=== PATIENT | male | born 1965 | race Caucasian/White ===

== ENCOUNTER 2018-12-14 23:01 | Inpatient (IN) | payer OTHER ==
[2018-12-14] MEDS ORDERED: SODIUM CHLORIDE 0.9% 1,000 ML IV ONE (23:54)
--- NOTE | 2018-12-14 23:54 | ED ---
Weakness HPI - General Chief complaint: Recheck/Abnormal Lab/Rx Stated complaint: SOB Time Seen by Provider: 12/14/18 23:19 Source: patient, EMS, RN notes reviewed, old records reviewed Mode of arrival: EMS Limitations: no limitations - History of Present Illness Initial comments: This is a 53-year-old male the ER for evaluation is patient presents today for evaluation of weakness weakness abdominal pain shortness of breath. Exertional dyspnea. Patient is accepted in transfer for evaluation regards to exertional dyspnea. Patient was found to have episodes of lymphoma likely lymphoma. Patient himself has no specific complaints currently. MD Complaint: generalized weakness -: month(s) Location: generalized Severity: moderate Severity scale (1-10): 5 Quality: constant Consistency: intermittent Improves with: none Worsens with: movement Context: new medication Associated Symptoms: loss of appetite, nausea/vomiting, shortness of breath - Related Data Allergies Allergy/AdvReac Type Severity Reaction Status Date / Time No Known Allergies Allergy Verified 12/14/18 23:12 Review of Systems ROS Statement: Those systems with pertinent positive or pertinent negative responses have been documented in the HPI. ROS Other: All systems not noted in ROS Statement are negative. Past Medical History Past Medical History: Asthma, Hyperlipidemia, Hypertension History of Any Multi-Drug Resistant Organisms: None Reported Past Surgical History: No Surgical Hx Reported Past Psychological History: Bipolar, Depression Smoking Status: Current some day smoker Past Alcohol Use History: None Reported Past Drug Use History: None Reported General Exam Limitations: no limitations General appearance: alert, in no apparent distress Head exam: Present: atraumatic, normocephalic, normal inspection Eye exam: Present: normal appearance, PERRL, EOMI. Absent: scleral icterus, conjunctival injection, periorbital swelling ENT exam: Present: normal exam, mucous membranes moist Neck exam: Present: normal inspection. Absent: tenderness, meningismus, lymphadenopathy Respiratory exam: Present: normal lung sounds bilaterally. Absent: respiratory distress, wheezes, rales, rhonchi, stridor Cardiovascular Exam: Present: regular rate, normal rhythm, normal heart sounds. Absent: systolic murmur, diastolic murmur, rubs, gallop, clicks GI/Abdominal exam: Present: soft, normal bowel sounds. Absent: distended, tenderness, guarding, rebound, rigid Extremities exam: Present: normal inspection, full ROM, normal capillary refill. Absent: tenderness, pedal edema, joint swelling, calf tenderness Back exam: Present: normal inspection Neurological exam: Present: alert, oriented X3, CN II-XII intact Psychiatric exam: Present: normal affect, normal mood Skin exam: Present: warm, dry, intact, normal color. Absent: rash Course Vital Signs 12/14/18 23:08 Temperature 98.1 F Pulse Rate 110 H Respiratory 18 Rate Blood Pressure 144/82 O2 Sat by Pulse 96 Oximetry - Reevaluation(s) Reevaluation #1: 12/14/18 23:52 Transferring paperwork is reviewed including labwork and CAT scan Reevaluation #2: 12/14/18 23:53 patient is in no distress Medical Decision Making - Medical Decision Making 53 male the ER for evaluation. Patient is new diagnosis of CVA. Likely will follow-up. Patient is in no acute distress with no complaints. He recently presented for evaluation of exertional dyspnea and there is some concern for u nderlying urologic obstruction. Disposition Clinical Impression: Lymphoma Disposition: ADMITTED IP TO THIS HOSP Condition: Fair Is patient prescribed a controlled substance at d/c from ED?: No Referrals: None,Stated [Primary Care Provider] - 1-2 days
[2018-12-14] MEDS ORDERED: MORPHINE SULFATE 4 MG/ML SYRINGE IVP STA (23:55)
[2018-12-14] MEDS ORDERED: MORPHINE SULFATE 4 MG/ML SYRINGE IVP PRN (23:55)
[2018-12-14] MEDS ORDERED: IPRATROPIUM-ALBUTEROL 3 ML NEB INHALATION STA (23:55)
[2018-12-14] MEDS ORDERED: IPRATROPIUM-ALBUTEROL 3 ML NEB INHALATION PRN (23:55)
[2018-12-15] MEDS ORDERED: BARIUM SULFATE 450 ML ORAL.SUSP BOTTLE PO PRN (08:50)
--- NOTE | 2018-12-15 09:04 | HP ---
HISTORY AND PHYSICAL CHIEF COMPLAINT: This is a 53-year-old who presents with weakness, abdominal pain and shortness of breath for the past 3 months. He has lost 62 pounds in the last 3 months. He came transferred from [facility] due to possible workup for possible lymphoma, although he states he does not know that he has no lymphoma. He is on medicines for his bipolar he states. Otherwise, he is on no other medicines and he was not short of breath until 3 months ago. ALLERGIES: Allergies are negative. REVIEW OF SYSTEMS: Fourteen-point review of systems negative except for the weight loss and shortness of breath. No hemoptysis. No PND or orthopnea. PAST MEDICAL HISTORY: Asthma, hypertension, dyslipidemia and past medical history of bipolar, depression. Current every day smoker. PHYSICAL EXAMINATION: Vital signs are reviewed. ENDOCRINE: BMI is over 40. External ear canals within normal limits. Pupils equal, round, reactive to light and accommodation. HEART: S1, S2. GI: Normal bowel sounds. EXTREMITIES: Normal inspection. Full range of motion. BACK: Normal inspection. NEUROLOGICAL: Cranial nerves are intact. PSYCH: Fair mood and affect. LUNGS: decreased breath sounds. No evidence of significant wheezing. Blood pressure 144/82, temp 98.1, pulse 110, respiratory rate 16 to 18, O2 of 96% on room air. ASSESSMENT: 1. Acute dyspnea of unclear etiology. 2. History of asthma. 3. History of bipolar. Continue updraft treatments. Await for Pulmonary to evaluate him. Continue with bipolar medicines. Please see further orders. MMODL / IJN: [id number] /
[2018-12-15] MEDS: busPIRone HCl 5 MG TAB PO SCH ×2 (09:48→21:28)
[2018-12-15] MEDS: ENOXAPARIN 40 MG/0.4 ML SYRINGE SQ SCH (09:49)
[2018-12-15] MEDS: Atomoxetine Hcl [Strattera] 80 MG PO SCH (09:49)
[2018-12-15] MEDS: SERTRALINE 100 MG TAB PO SCH (09:50)
[2018-12-15] MEDS: QUEtiapine 25 MG TAB PO SCH ×2 (09:50→21:28)
[2018-12-15 10:17] VITALS: BMI 36.6
[2018-12-15 10:42] LABS: Anisocytosis Slight; Basophils % (A) 1 %; Eosinophils % (A) 1 %; HGB 11.2 gm/dL (13.0-17.5); Hypochromasia Slight; Lymphocytes # (A) 0.8 k/uL (1.0-4.8); Lymphocytes % (A) 16 %; MCH 26.6 pg (25.0-35.0); MCHC 32.2 g/dL (31.0-37.0); MCV 82.7 fL (80.0-100.0); Mean Platelet Volume 6.9; Monocytes # (A) 0.3 k/uL (0-1.0); Monocytes % (A) 5 %; Neutrophils # (A) 4.1 k/uL (1.3-7.7); Neutrophils % (A) 76 %; Platelet Count 216 k/uL (150-450); RBC 4.23 m/uL (4.30-5.90); RDW 17.8 % (11.5-15.5); WBC 5.3 k/uL (3.8-10.6)
[2018-12-15] MEDS ORDERED: MORPHINE ORAL SOLN 10 MG/5 ML CUP PO PRN (10:54)
[2018-12-15 11:01] LABS: Albumin 3.3 g/dL (3.5-5.0); Calcium 9.1 mg/dL (8.4-10.2); Potassium 4.3 mmol/L (3.5-5.1); Total Bilirubin 0.6 mg/dL (0.2-1.3); Total Protein 5.6 g/dL (6.3-8.2)
[2018-12-15 12:00] LABS: Magnesium 2.2 mg/dL (1.6-2.3); Phosphorus 4.7 mg/dL (2.5-4.5)
[2018-12-15 12:11] LABS: Partial Thromboplastin Time 28.1 sec (22.0-30.0); Prothrombin Time 10.7 sec (9.0-12.0); Reticulocyte % 3.4 % (0.5-2.0)
--- NOTE | 2018-12-15 12:34 | P.CONS ---
History of Present Illness - Reason for Consult Consult date: 12/15/18 Adenopathy Requesting physician: Coy Eaton - Chief Complaint Weight Loss and Shortness of Breath - History of Present Illness Mr. Lamb is a 53 year old male patient who was transfered to [facility] for Oncology and Nephrology referrals. He originally presented to [facility] with complaint of persistent fatigue and increased shortness of breath on exertion. He admits to large unintended weight loss of over 30lbs in past few months. He had imaging at [facility] was concern for obstructive uropathy and diffuse adenopathy therefore was transferred to [facility] and medical Oncology was consulted. Creatinine on admission 1.39, BUN = 20. Hemoglobin 11.2. He has known history of active tobacco abuse, COPD, Hypertension, Hyperlipidemia. Review of Systems A 14 point review of systems assessed and completed and all negative except HPI Past Medical History Past Medical History: Asthma, Hyperlipidemia, Hypertension Additional Past Medical History / Comment(s): Per patient he was diagnosed with bipolar disorder, History of Any Multi-Drug Resistant Organisms: None Reported Past Surgical History: No Surgical Hx Reported Additional Past Surgical History / Comment(s): Colonoscopy Past Anesthesia/Blood Transfusion Reactions: No Reported Reaction Past Psychological History: Bipolar, Depression Additional Psychological History / Comment(s): Manic Smoking Status: Current every day smoker Past Alcohol Use History: None Reported Past Drug Use History: None Reported - Past Family History Father Family Medical History: No Reported History Mother Family Medical History: No Reported History Medications and Allergies Home Medications Medication Instructions Recorded Confirmed Type Atomoxetine HCl [Strattera] 80 mg PO DAILY 12/15/18 12/15/18 History QUEtiapine XR [SEROquel XR] 150 mg PO QAM 12/15/18 12/15/18 History QUEtiapine [SEROquel] 200 mg PO HS 12/15/18 12/15/18 History Sertraline [Zoloft] 200 mg PO DAILY 12/15/18 12/15/18 History busPIRone HCL 15 mg PO BID 12/15/18 12/15/18 History Allergies Allergy/AdvReac Type Severity Reaction Status Date / Time ragweed pollen Allergy Unknown Verified 12/15/18 07:58 Physical Exam Vitals: Vital Signs Temp Pulse Pulse Resp BP BP Pulse Ox 12/15/18 05:17 97.8 F 96 16 119/68 94 L 12/15/18 01:45 98.2 F 107 H 16 126/67 93 L 12/15/18 01:06 98.0 F 109 H 18 144/80 98 12/15/18 00:19 20 12/15/18 00:18 108 H 12/15/18 00:10 107 H 12/14/18 23:08 98.1 F 110 H 18 144/82 96 Intake and Output 12/14/18 12/15/18 12/15/18 22:59 06:59 14:59 Intake Total 1580 Balance 1580 Intake: Intake, IV Titration 500 Amount Sodium Chloride 0.9% 1, 500 000 ml @ 100 mls/hr IV . Q10H ONE Rx#:[id number] Oral 1080 Other: Voiding Method Toilet Toilet # Voids 3 Weight 122.47 kg 122.47 kg Gen: No Acute Distress Head NC, NT Neck: There is some right supraclavicular lymph nodes on palpation 1-2cm, non tender Lungs: No increased respiratory effort noted. Bibasilar decreased airflow Heart RRR, S1s2 Abdomen: S/ND/NT Ext: No edema Neuro: No sensory or motor deficits. Results CBC & Chem 7: 12/15/18 10:30 12/15/18 10:30 Labs: Abnormal Lab Results - Last 24 Hours (Table) 12/15/18 12/15/18 12/15/18 Range/Units 10:30 10:30 10:30 RBC 4.23 L (4.30-5.90) m/uL Hgb 11.2 L (13.0-17.5) gm/dL Hct 35.0 L (39.0-53.0) % RDW 17.8 H (11.5-15.5) % Lymphocytes # 0.8 L (1.0-4.8) k/uL D-Dimer 1.58 H (<0.60) mg/L FEU Sodium 135 L (137-145) mmol/L Creatinine 1.39 H (0.66-1.25) mg/dL Glucose 104 H (74-99) mg/dL Total Protein 5.6 L (6.3-8.2) g/dL Albumin 3.3 L (3.5-5.0) g/dL Assessment and Plan Plan: Assessment and Recommendations: 1. Diffuse Adenopathy on imaging and palpable Supraclavicular lymphadenopathy - Profound Weight Loss over past 3 months - Positive Night sweats - Positive persistent Fatigue - Consult placed for surgical evaluation for excisional lymph node biopy of supraclavicular node, as we are concerned for a diagnosis of lymphoma, in order to obtain a definitive diagnosis excisional lymph node will allow for diagnosis as core or needle is difficult to obtain with hetergenousity of lymph tissue. 2. Mild Normocytic Anemia: 3. Increased Renal Function Physician Attest: I have completed the full history and physical of this patient and devloped the completed impression and plan, agree with above dictation, dictated as a scribe
--- NOTE | 2018-12-15 12:42 | P.CNPUL ---
History of Present Illness Consult date: 12/15/18 Reason for consult: dyspnea, cough, COPD Chief complaint: Shortness of breath History of present illness: This is a 53-year-old gentleman who presented to the hospital from an outside facility. The patient states he was having weakness, abdominal pain, shortness of breath that has been ongoing for at least 3 months. He states he has lost about 60 pounds in the last 3 months. He he states he does have a history of COPD and was diagnosed a few years ago. He does not use any inhalers or nebulizers at home. He does smoke one to 3 cigarettes per day at this time. He previously smoked 1 pack per day for 20 years. The patient was found to have an elevated d-dimer. He states he was hospitalized in the past at [facility] for shortness of breath. That when he was diagnosed with COPD. The patient states "I think so" when he is asked if he has obstructive sleep apnea. He states that he had a sleep study 10-15 years ago and was told it was negative. He did gain significant weight since that time. However again in the last 3 months he has lost 60 pounds. He does not use home oxygen. He states he used to work in a [employer]. He also used to work at [employer]. He has no history of pulmonary embolism or DVT. He does have one dog in the home. He states he does have environmental ALLERGIES to pollen. He states he does cough some and produces white phlegm. He denies fevers and chills. He did note wheezing at home. The patient did have a computed tomography scan done at an outside facility which showed concern for lymphoma. Review of Systems All systems: negative Past Medical History Past Medical History: Asthma, Hyperlipidemia, Hypertension Additional Past Medical History / Comment(s): Per patient he was diagnosed with bipolar disorder, History of Any Multi-Drug Resistant Organisms: None Reported Past Surgical History: No Surgical Hx Reported Additional Past Surgical History / Comment(s): Colonoscopy Past Anesthesia/Blood Transfusion Reactions: No Reported Reaction Past Psychological History: Bipolar, Depression Additional Psychological History / Comment(s): Manic Smoking Status: Current every day smoker Past Alcohol Use History: None Reported Past Drug Use History: None Reported - Past Family History Father Family Medical History: No Reported History Mother Family Medical History: No Reported History Medications and Allergies Home Medications Medication Instructions Recorded Confirmed Type Atomoxetine HCl [Strattera] 80 mg PO DAILY 12/15/18 12/15/18 History QUEtiapine XR [SEROquel XR] 150 mg PO QAM 12/15/18 12/15/18 History QUEtiapine [SEROquel] 200 mg PO HS 12/15/18 12/15/18 History Sertraline [Zoloft] 200 mg PO DAILY 12/15/18 12/15/18 History busPIRone HCL 15 mg PO BID 12/15/18 12/15/18 History Allergies Allergy/AdvReac Type Severity Reaction Status Date / Time ragweed pollen Allergy Unknown Verified 12/15/18 07:58 Physical Exam Osteopathic Statement: *. No significant issues noted on an osteopathic structural exam other than those noted in the History and Physical/Consult. Vitals: Vital Signs Temp Pulse Pulse Resp BP BP Pulse Ox 12/15/18 05:17 97.8 F 96 16 119/68 94 L 12/15/18 01:45 98.2 F 107 H 16 126/67 93 L 12/15/18 01:06 98.0 F 109 H 18 144/80 98 12/15/18 00:19 20 12/15/18 00:18 108 H 12/15/18 00:10 107 H 12/14/18 23:08 98.1 F 110 H 18 144/82 96 Intake and Output 12/14/18 12/15/18 12/15/18 22:59 06:59 14:59 Intake Total 1580 Balance 1580 Intake: Intake, IV Titration 500 Amount Sodium Chloride 0.9% 1, 500 000 ml @ 100 mls/hr IV . Q10H ONE Rx#:[id number] Oral 1080 Other: Voiding Method Toilet Toilet # Voids 3 Weight 122.47 kg 122.47 kg Gen.: Patient is alert and oriented 3, no acute distress, morbidly obese Cardiovascular: Regular rate and rhythm, S1/S2 Lungs: Diminished breath sounds bilaterally no wheezes rales or rhonchi Abdomen: Soft nontender nondistended positive bowel sounds Extremities: No edema Results - Laboratory Findings CBC and BMP: 12/15/18 10:30 12/15/18 10:30 PT/INR, D-dimer PT 10.7 sec (9.0-12.0) 12/15/18 10:30 INR 1.0 (<1.2) 12/15/18 10:30 D-Dimer 1.58 mg/L FEU (<0.60) H 12/15/18 10:30 Abnormal lab findings: Abnormal Labs 12/15/18 12/15/18 12/15/18 10:30 10:30 10:30 RBC 4.23 L Hgb 11.2 L Hct 35.0 L RDW 17.8 H Lymphocytes # 0.8 L Retic Count D-Dimer 1.58 H Sodium 135 L Creatinine 1.39 H Glucose 104 H Phosphorus Total Protein 5.6 L Albumin 3.3 L 12/15/18 12/15/18 10:30 10:30 RBC Hgb Hct RDW Lymphocytes # Retic Count 3.4 H D-Dimer Sodium Creatinine Glucose Phosphorus 4.7 H Total Protein Albumin - Diagnostic Findings Chest x-ray: report reviewed CT scan - chest: report reviewed Assessment and Plan Assessment: Dyspnea on exertion Acute exacerbation of COPD Hydronephrosis Multiple enlarged lymphnodes noted on OSH CT scan concerning for lymphoma Active tobacco abuse Environmental allergies Morbid obesity, concern for ADRYAN Hypertension Dyslipidemia Bipolar/depression O2 to maintain saturation > or = 90%, currently on room air Awaiting CT/CXR to be uploaded for review Oncology evaluation and plan for possible biopsy Outpatient PSG and PFT Smoking cessation is highly recommended Pulmicort and Duonebs Monitor labs GI and DVT prophylaxis: Lovenox and add Protonix IS and pulmonary hygiene Check IgE/HP/allergy panel, A1AT Thank you for this consultation. We will continue to follow along.
[2018-12-15] MEDS: IPRATROPIUM-ALBUTEROL 3 ML NEB INHALATION SCH ×2 (12:59→20:43)
--- NOTE | 2018-12-15 14:28 | P.GSCN ---
<Pennie Jade - Last Filed: 12/15/18 14:23> History of Present Illness Consult date: 12/15/18 Reason for Consult: Lymph node biopsy Requesting physician: Radha Ivan History of present illness: CHIEF COMPLAINT: Supraclavicular lymph node biopsy HISTORY OF PRESENT ILLNESS: 53-year-old male who was transferred from [facility] with a chief complaint of generalized fatigue and increased shortness of breath. General surgery was consulted due to enlarged right supraclavicular lymph node and need for biopsy. PAST MEDICAL HISTORY: See list. PAST SURGICAL HISTORY: See list. MEDICATIONS: See list. ALLERGIES: See list. SOCIAL HISTORY: No illicit drug use. REVIEW OF SYSTEMS: CONSTITUTIONAL: Denies fever or chills. Reports night sweats. Reports fatigue. Reports weight loss. HEENT: Denies blurred vision, vision changes, or eye pain. Denies hemoptysis ENDOCRINE: Denies heat or cold intolerance. CARDIOVASCULAR: Denies chest pain or pressure. RESPIRATORY: reports occasional shortness of breath. GASTROINTESTINAL: Denies abdominal pain. Denies nausea or vomiting. NEURO: Denies history of seizures. PSYCH: No depression or suicidal ideation HEMATOLOGIC: Denies bleeding disorders. LYMPHATIC: The patient denies any lumps and bumps around the neck. GENITOURINARY: Denies any blood in urine or increased urinary frequency. MUSCULOSKELETAL: Denies myalgias. Denies joint swelling. Denies decreased range of motion beyond patients baseline. SKIN: Denies pruitis. Denies rash. PHYSICAL EXAM: VITAL SIGNS: Currently stable. GENERAL: Well-developed in no acute distress. HEENT: No sclera icterus. Extraocular movements grossly intact. Moist buccal mucosa. Head is atraumatic, normocephalic. Hears conversational speech. No nasal drainage. NECK: Palpable right medial supraclavicular lymph node. Nontender. CHEST: Non-labored respirations and equal bilateral excursions. CARDIOVASCULAR: Regular rate with regular rhythm. Palpable 2+ radial pulses. ABDOMEN: Obese. Soft. Nondistended. Nontender. MUSCULOSKELETAL: No clubbing, cyanosis or edema. NEUROLOGIC: No focal or lateralizing signs. Cranial nerves II through XII grossly intact. PSYCH: Appropriate affect. Alert and oriented to person, place and time. SKIN: Well perfused. Good skin turgor. ASSESSMENT: 1. Diffuse adenopathy per CT scan 2. Supraclavicular lymphadenopathy PLAN: 1. NPO after midnight 2. Patient to undergo right supraclavicular lymph node biopsy tomorrow with Dr. Fraire Nurse practitioner note has been reviewed by physician. Signing provider agrees with the documented findings, assessment, and plan of care. Past Medical History Past Medical History: Asthma, Hyperlipidemia, Hypertension Additional Past Medical History / Comment(s): Per patient he was diagnosed with bipolar disorder, History of Any Multi-Drug Resistant Organisms: None Reported Past Surgical History: No Surgical Hx Reported Additional Past Surgical History / Comment(s): Colonoscopy Past Anesthesia/Blood Transfusion Reactions: No Reported Reaction Past Psychological History: Bipolar, Depression Additional Psychological History / Comment(s): Manic Smoking Status: Current every day smoker Past Alcohol Use History: None Reported Past Drug Use History: None Reported - Past Family History Father Family Medical History: No Reported History Mother Family Medical History: No Reported History Medications and Allergies Home Medications Medication Instructions Recorded Confirmed Type Atomoxetine HCl [Strattera] 80 mg PO DAILY 12/15/18 12/15/18 History QUEtiapine XR [SEROquel XR] 150 mg PO QAM 12/15/18 12/15/18 History QUEtiapine [SEROquel] 200 mg PO HS 12/15/18 12/15/18 History Sertraline [Zoloft] 200 mg PO DAILY 12/15/18 12/15/18 History busPIRone HCL 15 mg PO BID 12/15/18 12/15/18 History Allergies Allergy/AdvReac Type Severity Reaction Status Date / Time ragweed pollen Allergy Unknown Verified 12/16/18 14:13 Surgical - Exam Vital Signs Temp Pulse Resp BP Pulse Ox 98.1 F 110 H 18 144/82 96 12/14/18 23:08 12/14/18 23:08 12/14/18 23:08 12/14/18 23:08 12/14/18 23:08 Results - Labs 12/15/18 10:30 12/15/18 10:30 Abnormal Lab Results - Last 24 Hours (Table) 12/15/18 12/15/18 12/15/18 Range/Units 10:30 10:30 10:30 RBC 4.23 L (4.30-5.90) m/uL Hgb 11.2 L (13.0-17.5) gm/dL Hct 35.0 L (39.0-53.0) % RDW 17.8 H (11.5-15.5) % Lymphocytes # 0.8 L (1.0-4.8) k/uL Retic Count (0.5-2.0) % D-Dimer 1.58 H (<0.60) mg/L FEU Sodium 135 L (137-145) mmol/L Creatinine 1.39 H (0.66-1.25) mg/dL Glucose 104 H (74-99) mg/dL Phosphorus (2.5-4.5) mg/dL Total Protein 5.6 L (6.3-8.2) g/dL Albumin 3.3 L (3.5-5.0) g/dL 12/15/18 12/15/18 Range/Units 10:30 10:30 RBC (4.30-5.90) m/uL Hgb (13.0-17.5) gm/dL Hct (39.0-53.0) % RDW (11.5-15.5) % Lymphocytes # (1.0-4.8) k/uL Retic Count 3.4 H (0.5-2.0) % D-Dimer (<0.60) mg/L FEU Sodium (137-145) mmol/L Creatinine (0.66-1.25) mg/dL Glucose (74-99) mg/dL Phosphorus 4.7 H (2.5-4.5) mg/dL Total Protein (6.3-8.2) g/dL Albumin (3.5-5.0) g/dL Diabetes panel 12/15/18 Range/Units 10:30 Sodium 135 L (137-145) mmol/L Potassium 4.3 (3.5-5.1) mmol/L Chloride 100 (98-107) mmol/L Carbon Dioxide 26 (22-30) mmol/L BUN 20 (9-20) mg/dL Creatinine 1.39 H (0.66-1.25) mg/dL Glucose 104 H (74-99) mg/dL Calcium 9.1 (8.4-10.2) mg/dL AST 28 (17-59) U/L ALT 34 (21-72) U/L Alkaline Phosphatase 77 (38-126) U/L Total Protein 5.6 L (6.3-8.2) g/dL Albumin 3.3 L (3.5-5.0) g/dL Thyroid panel 12/15/18 Range/Units 10:30 TSH 1.970 (0.465-4.680) mIU/L Calcium panel 12/15/18 12/15/18 Range/Units 10:30 10:30 Calcium 9.1 (8.4-10.2) mg/dL Phosphorus 4.7 H (2.5-4.5) mg/dL Albumin 3.3 L (3.5-5.0) g/dL Pituitary panel 12/15/18 Range/Units 10:30 Sodium 135 L (137-145) mmol/L Potassium 4.3 (3.5-5.1) mmol/L Chloride 100 (98-107) mmol/L Carbon Dioxide 26 (22-30) mmol/L BUN 20 (9-20) mg/dL Creatinine 1.39 H (0.66-1.25) mg/dL Glucose 104 H (74-99) mg/dL Calcium 9.1 (8.4-10.2) mg/dL TSH 1.970 (0.465-4.680) mIU/L Adrenal panel 12/15/18 Range/Units 10:30 Sodium 135 L (137-145) mmol/L Potassium 4.3 (3.5-5.1) mmol/L Chloride 100 (98-107) mmol/L Carbon Dioxide 26 (22-30) mmol/L BUN 20 (9-20) mg/dL Creatinine 1.39 H (0.66-1.25) mg/dL Glucose 104 H (74-99) mg/dL Calcium 9.1 (8.4-10.2) mg/dL Total Bilirubin 0.6 (0.2-1.3) mg/dL AST 28 (17-59) U/L ALT 34 (21-72) U/L Alkaline Phosphatase 77 (38-126) U/L Total Protein 5.6 L (6.3-8.2) g/dL Albumin 3.3 L (3.5-5.0) g/dL <Pacheco Fraire - Last Filed: 12/16/18 14:13> Surgical - Exam Vital Signs Temp Pulse Resp BP Pulse Ox 98.1 F 110 H 18 144/82 96 12/14/18 23:08 12/14/18 23:08 12/14/18 23:08 12/14/18 23:08 12/14/18 23:08 Results - Labs 12/16/18 06:52 12/16/18 06:52 Abnormal Lab Results - Last 24 Hours (Table) 12/15/18 12/15/18 12/15/18 Range/Units 13:35 13:35 13:35 RBC (4.30-5.90) m/uL Hgb (13.0-17.5) gm/dL Hct (39.0-53.0) % MCHC (31.0-37.0) g/dL RDW (11.5-15.5) % Lymphocytes # (1.0-4.8) k/uL Creatinine (0.66-1.25) mg/dL Iron 36 L (65-175) ug/dL Iron Saturation 13.69 L (15.00-50.00) Ferritin 734.7 H (22.0-322.0) ng/mL Total Protein (6.3-8.2) g/dL Total Protein (PEP) 5.0 L (6.2-8.2) g/dL Albumin (3.5-5.0) g/dL IgG 456.0 L (700.0-1600.0) mg/dL IgM <16.9 L (40.0-280.0) mg/dL 12/16/18 12/16/18 Range/Units 06:52 06:52 RBC 4.16 L (4.30-5.90) m/uL Hgb 10.8 L (13.0-17.5) gm/dL Hct 35.0 L (39.0-53.0) % MCHC 30.8 L (31.0-37.0) g/dL RDW 18.1 H (11.5-15.5) % Lymphocytes # 0.9 L (1.0-4.8) k/uL Creatinine 1.54 H (0.66-1.25) mg/dL Iron (65-175) ug/dL Iron Saturation (15.00-50.00) Ferritin (22.0-322.0) ng/mL Total Protein 5.5 L (6.3-8.2) g/dL Total Protein (PEP) (6.2-8.2) g/dL Albumin 3.3 L (3.5-5.0) g/dL IgG (700.0-1600.0) mg/dL IgM (40.0-280.0) mg/dL Diabetes panel 12/15/18 12/16/18 Range/Units 10:30 06:52 Sodium 139 (137-145) mmol/L Potassium 4.6 (3.5-5.1) mmol/L Chloride 103 (98-107) mmol/L Carbon Dioxide 27 (22-30) mmol/L BUN 18 (9-20) mg/dL Creatinine 1.54 H (0.66-1.25) mg/dL Glucose 90 (74-99) mg/dL Hemoglobin A1c 5.9 (4.0-6.0) % Calcium 9.1 (8.4-10.2) mg/dL AST 26 (17-59) U/L ALT 29 (21-72) U/L Alkaline Phosphatase 71 (38-126) U/L Total Protein 5.5 L (6.3-8.2) g/dL Albumin 3.3 L (3.5-5.0) g/dL Calcium panel 12/16/18 Range/Units 06:52 Calcium 9.1 (8.4-10.2) mg/dL Albumin 3.3 L (3.5-5.0) g/dL Pituitary panel 12/16/18 Range/Units 06:52 Sodium 139 (137-145) mmol/L Potassium 4.6 (3.5-5.1) mmol/L Chloride 103 (98-107) mmol/L Carbon Dioxide 27 (22-30) mmol/L BUN 18 (9-20) mg/dL Creatinine 1.54 H (0.66-1.25) mg/dL Glucose 90 (74-99) mg/dL Calcium 9.1 (8.4-10.2) mg/dL Adrenal panel 12/16/18 Range/Units 06:52 Sodium 139 (137-145) mmol/L Potassium 4.6 (3.5-5.1) mmol/L Chloride 103 (98-107) mmol/L Carbon Dioxide 27 (22-30) mmol/L BUN 18 (9-20) mg/dL Creatinine 1.54 H (0.66-1.25) mg/dL Glucose 90 (74-99) mg/dL Calcium 9.1 (8.4-10.2) mg/dL Total Bilirubin 0.6 (0.2-1.3) mg/dL AST 26 (17-59) U/L ALT 29 (21-72) U/L Alkaline Phosphatase 71 (38-126) U/L Total Protein 5.5 L (6.3-8.2) g/dL Albumin 3.3 L (3.5-5.0) g/dL Assessment and Plan Plan: Patient's enlarged right supraclavicular lymph node. Patient will undergo supraclavicular lymph node biopsy .
[2018-12-15 19:32] LABS: Hemoglobin A1C 5.9 % (4.0-6.0)
[2018-12-15 19:48] LABS: Iron Saturation 13.69 (15.00-50.00)
[2018-12-15 19:57] LABS: Folate, Serum 3.4 ng/mL
[2018-12-15] MEDS: BUDESONIDE 0.5 MG/2 ML NEBU INHALATION SCH (20:42)
[2018-12-15] MEDS: MONTELUKAST 10 MG TAB PO SCH (21:28)
[2018-12-15] MEDS: QUEtiapine 200 MG TAB PO SCH (21:29)
[2018-12-16 07:25] LABS: Anisocytosis Slight; Basophils % (A) 1 %; Eosinophils # (A) 0.1 k/uL (0-0.7); Eosinophils % (A) 1 %; HGB 10.8 gm/dL (13.0-17.5); Hypochromasia Moderate; Lymphocytes # (A) 0.9 k/uL (1.0-4.8); Lymphocytes % (A) 20 %; MCH 25.9 pg (25.0-35.0); MCHC 30.8 g/dL (31.0-37.0); MCV 84.2 fL (80.0-100.0); Mean Platelet Volume 6.1; Monocytes # (A) 0.2 k/uL (0-1.0); Monocytes % (A) 4 %; Neutrophils # (A) 3.2 k/uL (1.3-7.7); Neutrophils % (A) 72 %; Platelet Count 212 k/uL (150-450); RBC 4.16 m/uL (4.30-5.90); RDW 18.1 % (11.5-15.5); WBC 4.4 k/uL (3.8-10.6)
[2018-12-16] MEDS: ENOXAPARIN 40 MG/0.4 ML SYRINGE SQ SCH (07:26)
[2018-12-16 07:37] LABS: Albumin 3.3 g/dL (3.5-5.0); Calcium 9.1 mg/dL (8.4-10.2); Potassium 4.6 mmol/L (3.5-5.1); Total Bilirubin 0.6 mg/dL (0.2-1.3); Total Protein 5.5 g/dL (6.3-8.2)
[2018-12-16] MEDS: BUDESONIDE 0.5 MG/2 ML NEBU INHALATION SCH ×2 (07:52→19:19)
[2018-12-16] MEDS: IPRATROPIUM-ALBUTEROL 3 ML NEB INHALATION SCH ×3 (07:52→19:19)
--- NOTE | 2018-12-16 09:31 | PN ---
PROGRESS NOTE DATE OF SERVICE: 12/16/2018 He does not complain of any shortness of breath. He is lying in bed. He is to undergo a supraclavicular lymph node biopsy today. On physical examination respiratory rate of 16, pulse rate is 55, temperature 97.9, blood pressure 114/61. HEENT is unremarkable. Chest is clear. Cardiovascular system with an S1, S2. Abdomen is soft. There is trace pedal edema. White count is 4.4, hemoglobin of 10.8, BUN 18, creatinine of 1.54. IMPRESSION: 1. Multiple enlarged lymph nodes, likely due to lymphoma for which he is undergoing a biopsy today. 2. Morbid obesity, possible obstructive sleep apnea. 3. Chronic obstructive pulmonary disease with exacerbation. Continue Pulmicort, DuoNeb. Await further labs and biopsy. Increase his activity level. MMODL / IJN: [id number] /
[2018-12-16 11:55] LABS: Immunoglobulin A 69.3 mg/dL (60.0-350.0); Immunoglobulin M <16.9 mg/dL (40.0-280.0)
--- NOTE | 2018-12-16 13:39 | P.PN ---
Subjective Progress Note Date: 12/16/18 CHIEF COMPLAINT: Supraclavicular lymph node biopsy HISTORY OF PRESENT ILLNESS: Patient examined at the bedside. Patient denies abdominal pain. Denies nausea or vomiting. Patient is NPO and scheduled for lymph node biopsy today. PHYSICAL EXAM: VITAL SIGNS: Currently stable. GENERAL: Well-developed in no acute distress. HEENT: No sclera icterus. Extraocular movements grossly intact. Moist buccal mucosa. Head is atraumatic, normocephalic. Hears conversational speech. No nasal drainage. NECK: Palpable right medial supraclavicular lymph node. Nontender. CHEST: Non-labored respirations and equal bilateral excursions. CARDIOVASCULAR: Regular rate with regular rhythm. Palpable 2+ radial pulses. ABDOMEN: Obese. Soft. Nondistended. Nontender. MUSCULOSKELETAL: No clubbing, cyanosis or edema. NEUROLOGIC: No focal or lateralizing signs. Cranial nerves II through XII grossly intact. PSYCH: Appropriate affect. Alert and oriented to person, place and time. SKIN: Well perfused. Good skin turgor. ASSESSMENT: 1. Diffuse adenopathy per CT scan 2. Supraclavicular lymphadenopathy PLAN: 1. NPO. May resume diet after biopsy 2. Patient to undergo right supraclavicular lymph node biopsy today with Dr. Fraire Nurse practitioner note has been reviewed by physician. Signing provider agrees with the documented findings, assessment, and plan of care. Objective - Vital Signs Vital signs: Vital Signs Temp 98.6 F 12/16/18 12:43 Pulse 96 12/16/18 13:04 Resp 18 12/16/18 12:43 BP 134/77 12/16/18 12:43 Pulse Ox 92 L 12/16/18 12:43 Intake & Output 12/15/18 12/16/18 12/16/18 18:59 06:59 18:59 Intake Total 650 Output Total 1100 Balance -450 Weight 122.47 kg Intake: Oral 650 Output: Urine 1100 Other: Voiding Method Toilet Toilet Bedside Commode Urinal # Voids 4 2 2 # Bowel Movements 0 1 - Labs CBC & Chem 7: 12/16/18 06:52 12/16/18 06:52 Labs: Abnormal Lab Results - Last 24 Hours (Table) 12/15/18 12/15/18 12/15/18 Range/Units 13:35 13:35 13:35 RBC (4.30-5.90) m/uL Hgb (13.0-17.5) gm/dL Hct (39.0-53.0) % MCHC (31.0-37.0) g/dL RDW (11.5-15.5) % Lymphocytes # (1.0-4.8) k/uL Creatinine (0.66-1.25) mg/dL Iron 36 L (65-175) ug/dL Iron Saturation 13.69 L (15.00-50.00) Ferritin 734.7 H (22.0-322.0) ng/mL Total Protein (6.3-8.2) g/dL Total Protein (PEP) 5.0 L (6.2-8.2) g/dL Albumin (3.5-5.0) g/dL IgG 456.0 L (700.0-1600.0) mg/dL IgM <16.9 L (40.0-280.0) mg/dL 12/16/18 12/16/18 Range/Units 06:52 06:52 RBC 4.16 L (4.30-5.90) m/uL Hgb 10.8 L (13.0-17.5) gm/dL Hct 35.0 L (39.0-53.0) % MCHC 30.8 L (31.0-37.0) g/dL RDW 18.1 H (11.5-15.5) % Lymphocytes # 0.9 L (1.0-4.8) k/uL Creatinine 1.54 H (0.66-1.25) mg/dL Iron (65-175) ug/dL Iron Saturation (15.00-50.00) Ferritin (22.0-322.0) ng/mL Total Protein 5.5 L (6.3-8.2) g/dL Total Protein (PEP) (6.2-8.2) g/dL Albumin 3.3 L (3.5-5.0) g/dL IgG (700.0-1600.0) mg/dL IgM (40.0-280.0) mg/dL
[2018-12-16] MEDS ORDERED: LACTATED RINGERS 1,000 ML IV ONE (14:22)
[2018-12-16] MEDS ORDERED: HEPARIN SODIUM,PORCINE 5,000 UNIT/ML 1 ML VIAL SQ ONE (14:28)
[2018-12-16] MEDS ORDERED: ONDANSETRON 4 MG/2 ML VIAL IVP ONE (14:29)
[2018-12-16] MEDS ORDERED: BUPIVACAINE-EPI 0.5%-1:200,000 10 ML VIAL SQ ONE ×3 (14:33→15:08)
[2018-12-16] MEDS ORDERED: SUCCINYLCHOLINE CHLORIDE 100 MG/5 ML SYR IV ONE (14:43)
[2018-12-16] MEDS ORDERED: fentaNYL (PF) 50 MCG/ML 2 ML AMP ONE (14:43)
[2018-12-16] MEDS ORDERED: PROPOFOL 10 MG/ML 20 ML VIAL IV ONE (14:43)
[2018-12-16] MEDS ORDERED: MIDAZOLAM 2 MG/2 ML VIAL ONE (14:43)
[2018-12-16] MEDS ORDERED: PHENYLEPHRINE-0.9% NACL SYG 1 MG/10 ML SYRINGE ONE (14:43)
[2018-12-16] MEDS ORDERED: LIDOCAINE 1% INJ 10MG/ML (20 ML MDV) ONE (14:43)
[2018-12-16] MEDS ORDERED: SODIUM CHLORIDE 0.9% 50 ML with ceFAZolin 2,000 MG IV ONE ×2 (15:08)
[2018-12-16] MEDS: busPIRone HCl 5 MG TAB PO SCH ×2 (15:20→21:40)
[2018-12-16] MEDS: QUEtiapine 25 MG TAB PO SCH ×2 (15:20→21:41)
[2018-12-16] MEDS ORDERED: HYDROmorphone 0.5 MG/0.5 ML SYRINGE IVP PRN (15:28)
--- NOTE | 2018-12-16 15:32 | P.OP ---
Date of Procedure: 12/16/18 Preoperative Diagnosis: Lymphadenopathy Postoperative Diagnosis: Lymphadenopathy Procedure(s) Performed: Right supraclavicular lymph node biopsy Anesthesia: TRAMAINE Surgeon: Pacheco Fraire Estimated Blood Loss (ml): 10 Pathology: other (Right supraclavicular lymph node) Condition: stable Disposition: PACU Description of Procedure: The patient's placed on the operative table in supine position. He received general anesthesia. His was prepped and draped usual sterile fashion. The patient had a palpable lymph node in the right supraclavicular area. Skin was incised over this. Using left cautery subcutaneous tissue divided. The strap muscles were mobilized laterally. The tissue was divided using left cautery and then the lymph node was mobilized. Several small lymphatic vessels were ligated with 3-0 silk ties. The specimen was sent to pathology as a fresh specimen. The was between 6. There is no bleeding seen. The scope closed interrupted 3-0 Monocryl suture. Dermabond was applied. Patient top procedure well and was sent to recovery room stable condition.
[2018-12-16] MEDS ORDERED: ALBUTEROL NEBULIZED 1.25 MG/3 ML INHALATION ONE (15:43)
[2018-12-16] MEDS: Atomoxetine Hcl [Strattera] 80 MG PO SCH (16:33)
[2018-12-16] MEDS: SERTRALINE 100 MG TAB PO SCH (16:33)
[2018-12-16] MEDS: HYDROcodone/APAP 7.5-325MG 1 EACH TAB PO PRN (18:11)
--- NOTE | 2018-12-16 20:17 | PN ---
PROGRESS NOTE SUBJECTIVE: [id number] white male admitted for lymphoma, shortness of breath. Biopsy of the neck is going to be done today for a lymph node biopsy. Hemoglobin is 10.8, white count 4.4, creatinine 1.54. His breathing is a little bit better than when he came in, but close to the same. Temperature 98.8, pulse in low 100s, blood pressure 130s to 140s over 70s to 80s, oxygen 93% on room air. Lymph node biopsy will be done today. Continue with pulmonary treatments per Dr. Estrada. Await further orders. MMODL / IJN: [id number] /
[2018-12-16] MEDS: MONTELUKAST 10 MG TAB PO SCH (21:41)
[2018-12-16] MEDS: QUEtiapine 200 MG TAB PO SCH (21:41)
[2018-12-17] MEDS: HYDROcodone/APAP 7.5-325MG 1 EACH TAB PO PRN (00:32)
[2018-12-17] MEDS: Atomoxetine Hcl [Strattera] 80 MG PO SCH (06:53)
[2018-12-17] MEDS: busPIRone HCl 5 MG TAB PO SCH ×2 (06:59→20:10)
[2018-12-17] MEDS: ENOXAPARIN 40 MG/0.4 ML SYRINGE SQ SCH (07:00)
[2018-12-17] MEDS: QUEtiapine 25 MG TAB PO SCH ×2 (07:00→20:10)
[2018-12-17] MEDS: SERTRALINE 100 MG TAB PO SCH (07:00)
[2018-12-17] MEDS: BUDESONIDE 0.5 MG/2 ML NEBU INHALATION SCH ×2 (07:12→20:10)
[2018-12-17] MEDS: IPRATROPIUM-ALBUTEROL 3 ML NEB INHALATION SCH ×3 (07:12→20:10)
--- NOTE | 2018-12-17 10:19 | P.PN ---
Subjective Progress Note Date: 12/17/18 CHIEF COMPLAINT: Supraclavicular lymph node biopsy HISTORY OF PRESENT ILLNESS: Patient examined at the bedside. Patient is status post right supraclavicular lymph node biopsy. Patient denies abdominal pain. Denies nausea or vomiting. Patient tolerating regular diet. PHYSICAL EXAM: VITAL SIGNS: Currently stable. GENERAL: Well-developed in no acute distress. HEENT: No sclera icterus. Extraocular movements grossly intact. Moist buccal mucosa. Head is atraumatic, normocephalic. Hears conversational speech. No nasal drainage. NECK: Surgical incision clean and dry without drainage. CHEST: Non-labored respirations and equal bilateral excursions. CARDIOVASCULAR: Regular rate with regular rhythm. Palpable 2+ radial pulses. ABDOMEN: Obese. Soft. Nondistended. Nontender. MUSCULOSKELETAL: No clubbing, cyanosis or edema. NEUROLOGIC: No focal or lateralizing signs. Cranial nerves II through XII grossly intact. PSYCH: Appropriate affect. Alert and oriented to person, place and time. SKIN: Well perfused. Good skin turgor. ASSESSMENT: 1. Diffuse adenopathy per CT scan 2. Supraclavicular lymphadenopathy, s/p lymph node biopsy PLAN: 1. Continue current diet 2. Patient may shower today 3. Await biopsy results Nurse practitioner note has been reviewed by physician. Signing provider agrees with the documented findings, assessment, and plan of care. Objective - Vital Signs Vital signs: Vital Signs Temp 98.1 F 12/17/18 05:00 Pulse 104 H 12/17/18 07:25 Resp 18 12/17/18 07:34 BP 168/94 12/17/18 05:00 Pulse Ox 97 12/17/18 05:00 Intake & Output 12/16/18 12/17/18 12/17/18 18:59 06:59 18:59 Intake Total 900 560 Output Total 2 Balance 898 560 Intake: IV 900 Intake, IV Titration 560 Amount Sodium Chloride 0.9% 50 560 ml @ 0 mls/hr IV .STK-MED ONE with ceFAZolin 2,000 mg Rx#:[id number] Output: Estimated Blood Loss 2 Other: Voiding Method Bedside Commode Bedside Commode Urinal Urinal # Voids 2 1 - Labs CBC & Chem 7: 12/16/18 06:52 12/16/18 06:52 Labs: Abnormal Lab Results - Last 24 Hours (Table) 12/15/18 Range/Units 13:35 IgG 456.0 L (700.0-1600.0) mg/dL IgM <16.9 L (40.0-280.0) mg/dL
--- NOTE | 2018-12-17 11:20 | PN ---
PROGRESS NOTE The patient was seen on 12/17/2018. The patient has been hemodynamically stable. He underwent right-sided cervical lymph node biopsy yesterday with no immediate complications. His path report is pending. PHYSICAL EXAMINATION: On physical examination, his respiratory rate is 18, pulse rate of 104, blood pressure of 168/94, O2 saturation on room air is 97%. HEENT reveals no new changes. Chest reveals decreased breath sounds with prolonged expiration. No wheeze today. Cardiovascular system reveals an S1, S2. Abdomen is soft. There is trace to 1+ pedal edema. LABS: Labs reveal a white count of 4.4, hemoglobin of 10.8. Sodium 139, potassium 4.6, chloride 103, bicarb 27, BUN 18, creatinine 1.54. IMPRESSION AT THIS TIME: 1. Multiple enlarged lymph nodes which may be due to lymphoma. Await biopsy results. 2. Morbid obesity, possible obstructive sleep apnea. 3. Chronic obstructive pulmonary disease with acute exacerbation. Continue current medications. Increase his activity level. Depending on how he does, we shall make further changes to his care. MMODL / IJN: [id number] /
[2018-12-17 14:20] LABS: Alt. alternata IgE Class CLASS 0; Alternaria alternata IgE <0.35 kU/L (<0.35); Asperg. fumagatus IgE <0.35 kU/L (<0.35); Asperg. fumagatus IgE Class CLASS 0; Bermuda Grass IgE <0.35 kU/L (<0.35); Birch(Com.Silvr) IgE <0.35 kU/L (<0.35); Birch(Com.Silvr) IgE Class CLASS 0; Cat Epith & Dander IgE <0.35 kU/L (<0.35); Cat Epith & Dander IgE Class CLASS 0; Clad herbarum IgE <0.35 kU/L (<0.35); Cockroach IgE <0.35 kU/L (<0.35); Cottonwood IgE <0.35 kU/L (<0.35); Dermato. Pteronyssinus IgE <0.35 kU/L (<0.35); Dermato. farinae IgE <0.35 kU/L (<0.35); Dermato. farinae IgE Class CLASS 0; Dog Dander IgE <0.35 kU/L (<0.35); Elm IgE <0.35 kU/L (<0.35); Maple (Box Elder) IgE <0.35 kU/L (<0.35); Maple (Box Elder) IgE Class CLASS 0; Mountain Cedar IgE <0.35 kU/L (<0.35); Mountain Cedar IgE Class CLASS 0; Mouse Urine IgE Class CLASS 0; Nettle IgE <0.35 kU/L (<0.35); Nettle IgE Class CLASS 0; Oak IgE <0.35 kU/L (<0.35); Penicillium notatum IgE Class CLASS 0; Rough Marshelder IgE <0.35 kU/L (<0.35); Rough Marshelder IgE Class CLASS 0; Timothy Grass IgE <0.35 kU/L (<0.35); White Ash IgE Class CLASS 0
[2018-12-17 14:22] LABS: Albumin 2.79 g/dL (3.80-4.90); Gamma Globulin 0.37 g/dL (0.70-1.50)
[2018-12-17] MEDS: MONTELUKAST 10 MG TAB PO SCH (20:09)
[2018-12-17] MEDS: QUEtiapine 200 MG TAB PO SCH (20:10)
--- NOTE | 2018-12-17 23:06 | P.PN ---
Subjective Progress Note Date: 12/17/18 Principal diagnosis: Lymph Node Enlargement Status Post Excisional Biopsy Objective - Vital Signs Vital signs: Vital Signs Temp 98.1 F 12/17/18 05:00 Pulse 104 H 12/17/18 07:25 Resp 18 12/17/18 07:34 BP 168/94 12/17/18 05:00 Pulse Ox 97 12/17/18 05:00 Intake & Output 12/16/18 12/17/18 12/17/18 18:59 06:59 18:59 Intake Total 900 560 Output Total 2 Balance 898 560 Intake: IV 900 Intake, IV Titration 560 Amount Sodium Chloride 0.9% 50 560 ml @ 0 mls/hr IV .STK-MED ONE with ceFAZolin 2,000 mg Rx#:[id number] Output: Estimated Blood Loss 2 Other: Voiding Method Bedside Commode Bedside Commode Urinal Urinal # Voids 2 1 - Exam Gen: No Acute Distress Head NC, NT Neck: There is some right supraclavicular lymph nodes on palpation 1-2cm, non tender Lungs: No increased respiratory effort noted. Bibasilar decreased airflow Heart RRR, S1s2 Abdomen: S/ND/NT Ext: No edema Neuro: No sensory or motor deficits. - Labs CBC & Chem 7: 12/16/18 06:52 12/16/18 06:52 Labs: Abnormal Lab Results - Last 24 Hours (Table) 12/15/18 Range/Units 13:35 IgG 456.0 L (700.0-1600.0) mg/dL IgM <16.9 L (40.0-280.0) mg/dL Assessment and Plan Plan: Assessment and Recommendations: 1. Diffuse Adenopathy on imaging and palpable Supraclavicular lymphadenopathy - Profound Weight Loss over past 3 months - Positive Night sweats - Positive persistent Fatigue - Consult placed for surgical evaluation for excisional lymph node biopy of supraclavicular node, as we are concerned for a diagnosis of lymphoma, in order to obtain a definitive diagnosis excisional lymph node will allow for diagnosis as core or needle is difficult to obtain with hetergenousity of lymph tissue. - TOlerated procedure well, will await results of pathology of lymph node for further recs. 2. Mild Normocytic Anemia: No intervention required, will continue monitoring 3. Increased Renal Function: - Monitor Physician Attest: I have completed the full history and physical of this patient and devloped the completed impression and plan, agree with above dictation, dictated as a scribe
[2018-12-18] MEDS: HYDROcodone/APAP 7.5-325MG 1 EACH TAB PO PRN (07:29)
[2018-12-18] MEDS: Atomoxetine Hcl [Strattera] 80 MG PO SCH (07:38)
[2018-12-18] MEDS: QUEtiapine 25 MG TAB PO SCH (07:39)
[2018-12-18] MEDS: busPIRone HCl 5 MG TAB PO SCH (07:39)
[2018-12-18] MEDS: SERTRALINE 100 MG TAB PO SCH (07:40)
[2018-12-18] MEDS: ENOXAPARIN 40 MG/0.4 ML SYRINGE SQ SCH (07:48)
[2018-12-18] MEDS: BUDESONIDE 0.5 MG/2 ML NEBU INHALATION SCH (08:04)
[2018-12-18] MEDS: IPRATROPIUM-ALBUTEROL 3 ML NEB INHALATION SCH ×2 (08:04→13:45)
[2018-12-18 08:09] LABS: Anisocytosis Slight; Basophils % (A) 0 %; Eosinophils # (A) 0.1 k/uL (0-0.7); Eosinophils % (A) 1 %; HCT 36.4 % (39.0-53.0); HGB 11.3 gm/dL (13.0-17.5); Hypochromasia Slight; Lymphocytes # (A) 1.1 k/uL (1.0-4.8); Lymphocytes % (A) 18 %; MCH 25.9 pg (25.0-35.0); MCHC 31.2 g/dL (31.0-37.0); MCV 83.1 fL (80.0-100.0); Mean Platelet Volume 6.2; Monocytes # (A) 0.3 k/uL (0-1.0); Monocytes % (A) 5 %; Neutrophils # (A) 4.5 k/uL (1.3-7.7); Neutrophils % (A) 74 %; Platelet Count 260 k/uL (150-450); RBC 4.38 m/uL (4.30-5.90); RDW 18.2 % (11.5-15.5); WBC 6.1 k/uL (3.8-10.6)
[2018-12-18 08:21] LABS: Albumin 3.6 g/dL (3.5-5.0); Calcium 9.8 mg/dL (8.4-10.2); Potassium 4.4 mmol/L (3.5-5.1); Total Bilirubin 0.6 mg/dL (0.2-1.3)
--- NOTE | 2018-12-18 12:21 | P.PN ---
Subjective Progress Note Date: 12/18/18 CHIEF COMPLAINT: Supraclavicular lymph node biopsy HISTORY OF PRESENT ILLNESS: Patient examined at the bedside. Patient is status post right supraclavicular lymph node biopsy. Patient denies abdominal pain. Denies nausea or vomiting. Patient tolerating regular diet. Complains of some tenderness near biopsy site PHYSICAL EXAM: VITAL SIGNS: Currently stable. GENERAL: Well-developed in no acute distress. HEENT: No sclera icterus. Extraocular movements grossly intact. Moist buccal mucosa. Head is atraumatic, normocephalic. Hears conversational speech. No nasal drainage. NECK: Surgical incision clean and dry without drainage. CHEST: Non-labored respirations and equal bilateral excursions. CARDIOVASCULAR: Regular rate with regular rhythm. Palpable 2+ radial pulses. ABDOMEN: Obese. Soft. Nondistended. Nontender. MUSCULOSKELETAL: No clubbing, cyanosis or edema. NEUROLOGIC: No focal or lateralizing signs. Cranial nerves II through XII grossly intact. PSYCH: Appropriate affect. Alert and oriented to person, place and time. SKIN: Well perfused. Good skin turgor. ASSESSMENT: 1. Diffuse adenopathy per CT scan 2. Supraclavicular lymphadenopathy, s/p lymph node biopsy PLAN: 1. Continue current diet 2. Await biopsy results 3. We will continue to follow along for possible Mediport insertion pending biopsy results Nurse practitioner note has been reviewed by physician. Signing provider agrees with the documented findings, assessment, and plan of care. Objective - Vital Signs Vital signs: Vital Signs Temp 98.1 F 12/18/18 11:51 Pulse 96 12/18/18 11:51 Resp 17 12/18/18 11:51 BP 131/71 12/18/18 11:51 Pulse Ox 95 12/18/18 11:51 Intake & Output 12/17/18 12/18/18 12/18/18 18:59 06:59 18:59 Intake Total 650 Balance 650 Weight 122.47 kg Intake: Oral 650 Other: Voiding Method Bedside Commode Bedside Commode Bedside Commode Urinal Urinal Urinal # Voids 3 3 # Bowel Movements 1 - Labs CBC & Chem 7: 12/18/18 07:43 12/18/18 07:43 Labs: Abnormal Lab Results - Last 24 Hours (Table) 12/15/18 12/18/18 12/18/18 Range/Units 13:35 07:43 07:43 Hgb 11.3 L (13.0-17.5) gm/dL Hct 36.4 L (39.0-53.0) % RDW 18.2 H (11.5-15.5) % Creatinine 1.51 H (0.66-1.25) mg/dL Glucose 102 H (74-99) mg/dL Total Protein 6.0 L (6.3-8.2) g/dL Albumin (PEP) 2.79 L (3.80-4.90) g/dL [id number] 0.50 H (0.10-0.40) g/dL Beta Globulins 0.52 L (0.60-1.30) g/dL Gamma Globulins 0.37 L (0.70-1.50) g/dL
[2018-12-18 15:57] VITALS: BP 140/73; PULSE 94; RESP 12; TEMP 97.4
--- NOTE | 2018-12-18 16:07 | P.PN ---
Subjective Progress Note Date: 12/18/18 12/18/2018: Patient seen and examined. Patient states he is feeling better overall. He is wondering about his biopsy results. He is aware the results could take several days. He says his breathing is a little better. He is on room air with O2 saturation 97%. He denies cough, fever, chills. Objective - Vital Signs Vital signs: Vital Signs Temp 97.4 F L 12/18/18 15:54 Pulse 94 12/18/18 15:54 Resp 12 12/18/18 15:54 BP 140/73 12/18/18 15:54 Pulse Ox 95 12/18/18 11:51 Intake & Output 12/17/18 12/18/18 12/18/18 18:59 06:59 18:59 Intake Total 650 Balance 650 Weight 122.47 kg Intake: Oral 650 Other: Voiding Method Bedside Commode Bedside Commode Bedside Commode Urinal Urinal Urinal # Voids 3 3 3 # Bowel Movements 1 - Exam Gen.: Patient is alert and oriented 3, no acute distress, morbidly obese Cardiovascular: Regular rate and rhythm, S1/S2 Lungs: Diminished breath sounds bilaterally no wheezes rales or rhonchi Abdomen: Soft nontender nondistended positive bowel sounds Extremities: No edema - Labs CBC & Chem 7: 12/18/18 07:43 12/18/18 07:43 Labs: Abnormal Lab Results - Last 24 Hours (Table) 12/18/18 12/18/18 Range/Units 07:43 07:43 Hgb 11.3 L (13.0-17.5) gm/dL Hct 36.4 L (39.0-53.0) % RDW 18.2 H (11.5-15.5) % Creatinine 1.51 H (0.66-1.25) mg/dL Glucose 102 H (74-99) mg/dL Total Protein 6.0 L (6.3-8.2) g/dL Assessment and Plan Assessment: Dyspnea on exertion Acute exacerbation of COPD Hydronephrosis Multiple enlarged lymphnodes noted on OSH CT scan concerning for lymphoma Active tobacco abuse Environmental allergies Morbid obesity, concern for ADRYAN Hypertension Dyslipidemia Bipolar/depression O2 to maintain saturation > or = 90%, currently on room air Outpatient PSG and PFT Smoking cessation is highly recommended Pulmicort and Duonebs Monitor labs GI and DVT prophylaxis: Lovenox and add Protonix IS and pulmonary hygiene Ok to DC from pulmonary standpoint. Discharge orders placed for Bashir Connors TID, Samara
--- NOTE | 2018-12-18 16:18 | P.PN ---
Subjective Progress Note Date: 12/18/18 Principal diagnosis: Lymph Node Enlargement Status Post Excisional Biopsy Objective - Vital Signs Vital signs: Vital Signs Temp 97.4 F L 12/18/18 15:54 Pulse 94 12/18/18 15:54 Resp 12 12/18/18 15:54 BP 140/73 12/18/18 15:54 Pulse Ox 95 12/18/18 11:51 Intake & Output 12/17/18 12/18/18 12/18/18 18:59 06:59 18:59 Intake Total 650 Balance 650 Weight 122.47 kg Intake: Oral 650 Other: Voiding Method Bedside Commode Bedside Commode Bedside Commode Urinal Urinal Urinal # Voids 3 3 3 # Bowel Movements 1 - Exam Gen: No Acute Distress Head NC, NT Neck: There is some right supraclavicular lymph nodes on palpation 1-2cm, non tender Lungs: No increased respiratory effort noted. Bibasilar decreased airflow Heart RRR, S1s2 Abdomen: S/ND/NT Ext: No edema Neuro: No sensory or motor deficits. - Labs CBC & Chem 7: 12/18/18 07:43 12/18/18 07:43 Labs: Abnormal Lab Results - Last 24 Hours (Table) 12/18/18 12/18/18 Range/Units 07:43 07:43 Hgb 11.3 L (13.0-17.5) gm/dL Hct 36.4 L (39.0-53.0) % RDW 18.2 H (11.5-15.5) % Creatinine 1.51 H (0.66-1.25) mg/dL Glucose 102 H (74-99) mg/dL Total Protein 6.0 L (6.3-8.2) g/dL Assessment and Plan Plan: Assessment and Recommendations: 1. Diffuse Adenopathy on imaging and palpable Supraclavicular lymphadenopathy - Profound Weight Loss over past 3 months - Positive Night sweats - Positive persistent Fatigue - Consult placed for surgical evaluation for excisional lymph node biopy of supraclavicular node, as we are concerned for a diagnosis of lymphoma, in order to obtain a definitive diagnosis excisional lymph node will allow for diagnosis as core or needle is difficult to obtain with hetergenousity of lymph tissue. - TOlerated procedure well, will await results of pathology of lymph node for further recs. 2. Mild Normocytic Anemia: No intervention required, will continue monitoring 3. Increased Renal Function: - Monitor Discussed follow-up in office once biopsy results. Ok for discharge from oncology standpoint. Physician Attest: I have completed the full history and physical of this patient and devloped the completed impression and plan, agree with above dictation, dictated as a scribe
[2018-12-22 00:35] LABS: Alternaria Alternata IgG <2.0 mcg/mL (< 13.6); Aspergillus fumigatus IgG Not detected (Not detected); Aureobasidium pullulans IgG <2.0 mcg/mL (< 13.6); Cladosporium herbarium IgG 2.1 mcg/mL (< 14.7); Phoma ssp. IgG <2.0 mcg/mL (< 6.6); Saccaharomospora viridis Not detected (Not detected); Saccaharopoly. rectivirgula Not detected (Not detected)
== END 2018-12-18 19:00 | disposition home or self-care (01) | DRG 824 ==
LOC: EC 23:01 → 3NMEDONC 12-15
PROVIDERS: ADMIT Family Medicine; ATTEND Family Medicine
PROC: 07B50ZX Excision of Right Axillary Lymphatic, Open Approach, Diagnostic (ICD-10-PCS; principal; 2018-12-16 08:45)
DX: C85.94 Non-Hodgkin lymphoma, unspecified, lymph nodes of axilla and upper limb (principal); J44.1 Chronic obstructive pulmonary disease with (acute) exacerbation; Z68.41 Body mass index [BMI] 40.0-44.9, adult; N13.30 Unspecified hydronephrosis; E66.01 Morbid (severe) obesity due to excess calories; G47.33 Obstructive sleep apnea (adult) (pediatric); E78.5 Hyperlipidemia, unspecified; F31.9 Bipolar disorder, unspecified; I10 Essential (primary) hypertension; D64.9 Anemia, unspecified; R79.1 Abnormal coagulation profile; F17.210 Nicotine dependence, cigarettes, uncomplicated; Z79.899 Other long term (current) drug therapy; Z91.048 Other nonmedicinal substance allergy status
CPT/HCPCS: 80053; 82103; 82607; 82728; 82746; 82784; 82785; 83036; 83540; 83550; 83615; 83735; 83880; 83883; 84100; 84165; 84443; 84484; 84550; 85025; 85045; 85379; 85610; 85730; 86001; 86003; 86334; 86606; 86609; 88307; 88341; 88342; 94640; 96361; 96374; 99285

== ENCOUNTER 2019-01-14 06:42 | Day surgery (SDC) | payer OTHER ==
[2019-01-11 11:44] VITALS: BMI 35.2
[~2019-01-14 06:42] MED LIST: DEXAMETHASONE SOD PHOSPHATE 10 MG/ML 1 ML VIAL IV ONE; HEPARIN SODIUM,PORCINE 5,000 UNIT/ML 1 ML VIAL SQ ONE; LACTATED RINGERS 1,000 ML IV SCH; LIDOCAINE 1% 20 ML VIAL (10MG/ML) FOR IV START INTRADERMA PRN; MIDAZOLAM (PF) 2 MG/2 ML VIAL IV PRN; ONDANSETRON 4 MG/2 ML VIAL IVP ONE; Pre Op ABX Message 1 EACH MISC MISCELLANE ONE; fentaNYL (PF) 50 MCG/ML 2 ML AMP IV PRN
[2019-01-14] MEDS ORDERED: fentaNYL (PF) 50 MCG/ML 2 ML AMP ONE (07:42)
[2019-01-14] MEDS ORDERED: PROPOFOL 10 MG/ML 20 ML VIAL IV ONE (07:42)
[2019-01-14] MEDS ORDERED: MIDAZOLAM 2 MG/2 ML VIAL ONE (07:42)
--- NOTE | 2019-01-14 07:55 | P.GSHP ---
History of Present Illness H&P Date: 01/14/19 Chief Complaint: Non-Hodgkin's lymphoma This a 53-year-old male who presents today for Port-A-Cath insertion. Patient presented diagnosed with non-Hodgkin's lymphoma. Past Medical History Past Medical History: Cancer, Hyperlipidemia, Hypertension Additional Past Medical History / Comment(s): Non hodgkins lymphoma. History of Any Multi-Drug Resistant Organisms: None Reported Past Surgical History: No Surgical Hx Reported Additional Past Surgical History / Comment(s): Colonoscopy, lymph node biopsy. Past Anesthesia/Blood Transfusion Reactions: No Reported Reaction Past Psychological History: Bipolar, Depression Additional Psychological History / Comment(s): Manic. Smoking Status: Former smoker Past Alcohol Use History: None Reported Additional Past Alcohol Use History / Comment(s): Quit smoking December 2018. Smoked 30+ yrs, 1 PPD cutting down to 1/4PPD before quitting. Past Drug Use History: None Reported - Past Family History Father Family Medical History: No Reported History Mother Family Medical History: No Reported History Medications and Allergies Home Medications Medication Instructions Recorded Confirmed Type Atomoxetine HCl [Strattera] 80 mg PO DAILY 12/15/18 01/14/19 History Sertraline [Zoloft] 200 mg PO DAILY 12/15/18 01/14/19 History busPIRone HCL 15 mg PO BID 12/15/18 01/14/19 History Fluticasone/Vilanterol [Breo 1 inhalation INHALATION QID 01/11/19 01/14/19 History Ellipta 200-25 Mcg INH] Allergies Allergy/AdvReac Type Severity Reaction Status Date / Time latex Allergy Rash/Hives Verified 01/14/19 07:11 ragweed pollen Allergy Unknown Verified 01/14/19 07:11 Surgical - Exam Vital Signs Temp Pulse Resp BP Pulse Ox 98.9 F 120 H 22 141/67 94 L 01/14/19 07:09 01/14/19 07:09 01/14/19 07:09 01/14/19 07:09 01/14/19 07:09 - General BMI 35 well developed, no distress - Eyes PERRL - ENT normal pinna - Neck no masses - Respiratory normal expansion - Cardiovascular Rhythm: regular - Abdomen Abdomen: soft, non tender Assessment and Plan Assessment: Non-Hodgkin's lymphoma. We'll perform Port-A-Cath insertion.
[2019-01-14] MEDS ORDERED: SODIUM CHLORIDE 0.9% 100 ML with ceFAZolin (PMX-bag) 2,000 MG IV ONE ×2 (08:18)
[2019-01-14] MEDS ORDERED: IOPAMIDOL-370 50ML BTL IRRIGATION ONE (08:27)
[2019-01-14] MEDS ORDERED: HEPARIN SODIUM,PORCINE 100 UNIT/ML 5 ML VIAL IV ONE (08:27)
[2019-01-14] MEDS ORDERED: BUPIVACAINE-EPI 0.5%-1:200,000 10 ML VIAL SQ ONE ×2 (08:27)
--- NOTE | 2019-01-14 08:50 | P.OP ---
Date of Procedure: 01/14/19 Preoperative Diagnosis: Non-Hodgkin lymphoma Postoperative Diagnosis: Non-Hodgkin lymphoma Procedure(s) Performed: Right subclavian Port-A-Cath Anesthesia: MAC Surgeon: Pacheco Fraire Estimated Blood Loss (ml): 5 Pathology: none sent Condition: stable Disposition: PACU Description of Procedure: PROCEDURE: The patient was placed on the operating table in the supine position. She received MAC anesthetic. The [right] chest was prepped and draped in the usual sterile fashion. The skin underneath the right clavicle was anesthetized with 1% Xylocaine and using Seldinger technique, the right subclavian vein was cannulized. The wire was placed through the needle and positioned under fluoroscopy. Next, the needle was removed and the port site was anesthetized with 1% Xylocaine. Skin was incised with #15 blade and port pocket was made using blunt and sharp dissection. Following this the catheter was attached to the sport and the port was flushed. The port was positioned into the pocket site and was secured with 3-0 Vicryl suture. The catheter was then brought out through the wire site and then the dilator sheath was placed over the wire and the dilator and the wire were removed. The catheter was placed through the sheath and the sheath was removed. The port was flushed with hep-lock solution. Skin was closed with interrupted 3-0 Vicryl sutures. Steri-Strips were applied. The patient tolerated the procedure well. The patient was sent to recovery room for chest x-ray after the procedure.
[2019-01-14 08:59] VITALS: TEMP 97.1
--- NOTE | 2019-01-14 09:20 | XR ---
EXAMINATION TYPE: XR chest 1V portable DATE OF EXAM: 01/14/2019 COMPARISON: Outside chest films and CTA chest from [facility] labeled with the patient's name dated 12/14/2018. INDICATION: Line placement TECHNIQUE: Single frontal view of the chest is obtained. FINDINGS: The heart size is normal. The pulmonary vasculature is normal. The lungs are clear. There is prominent superior mediastinum. Underlying mass should be considered. This corresponds to th e lymphadenopathy identified on the CT examination 12/14/2018. There may be some narrowing of the dist al trachea on this frontal projection. There is placement of a right central venous catheter, tip is within the proximal superior vena cava region. IMPRESSION: 1. Right upper lobe and mediastinal mass. 2. No pneumothorax post right catheter placement.
[2019-01-14 09:24] VITALS: RESP 16
[2019-01-14 10:03] VITALS: BP 121/77; PULSE 99
--- NOTE | 2019-01-14 12:50 | FL ---
Fluoroscopy HISTORY: portacath insertion 21 seconds fluoroscopy time supplied to the referring clinician. 1 intraoperative C-arm images docum ent the procedure. See dictated report from general surgery.
== END 2019-01-14 10:08 | disposition home or self-care (01) ==
LOC: OR 06:42
PROVIDERS: ATTEND Surgery
DX: C85.90 Non-Hodgkin lymphoma, unspecified, unspecified site (principal); I10 Essential (primary) hypertension; E78.5 Hyperlipidemia, unspecified; J44.9 Chronic obstructive pulmonary disease, unspecified; F31.9 Bipolar disorder, unspecified; J30.1 Allergic rhinitis due to pollen; Z87.891 Personal history of nicotine dependence; Z79.899 Other long term (current) drug therapy; Z91.040 Latex allergy status
CPT/HCPCS: 77001; 71045; 36561; C1788; J2250; J1644; J1642; J1100; J2405; J3010; J0690; J2704; Q9967

== ENCOUNTER 2019-01-15 05:41 | Day surgery (SDC) | payer OTHER ==
[2019-01-14 10:54] VITALS: BMI 36.8
[~2019-01-15 05:41] MED LIST changes: -DEXAMETHASONE SOD PHOSPHATE 10 MG/ML 1 ML VIAL IV ONE; -HEPARIN SODIUM,PORCINE 5,000 UNIT/ML 1 ML VIAL SQ ONE; -LIDOCAINE 1% 20 ML VIAL (10MG/ML) FOR IV START INTRADERMA PRN; -MIDAZOLAM (PF) 2 MG/2 ML VIAL IV PRN; -ONDANSETRON 4 MG/2 ML VIAL IVP ONE; -Pre Op ABX Message 1 EACH MISC MISCELLANE ONE; -fentaNYL (PF) 50 MCG/ML 2 ML AMP IV PRN
[2019-01-15 06:17] VITALS: TEMP 97.5
[2019-01-15] MEDS ORDERED: LIDOCAINE 1% 20 ML VIAL (10MG/ML) FOR IV START INTRADERMA ONE (06:25)
[2019-01-15] MEDS ORDERED: PROPOFOL 10 MG/ML 20 ML VIAL IV ONE (07:04)
--- NOTE | 2019-01-15 07:33 | P.PCN ---
Date of Procedure: 01/15/19 Preoperative Diagnosis: [place] Lymphoma Postoperative Diagnosis: Same Procedure(s) Performed: Bone marrow Aspiration and biopsy Anesthesia: MAC Surgeon: Dennys Zafar Photographic Press Screwmaker #1: Stated None Estimated Blood Loss (ml): 1 Pathology: other Condition: stable Disposition: same day Indications for Procedure: New diagnosis of non-Hodgkin's lymphoma. Bone marrow done for staging Operative Findings: Adequate samples Description of Procedure: The procedure was explained in detail to the patient and his caregiver, in the office. He presented to the outpatient endoscopy suite where IV access and informed consent was obtained. He was then placed in the left lateral decubitus position. The area over both posterior iliac crest was cleaned and prepped with chlorhexidine and sterile draping. IV sedation was then initiated. Local anesthesia was administered with lidocaine to the right posterior either breast. A Jamshidi needle was then inserted and bone marrow aspirate and biopsy obtained. On withdrawal of the needle hemostasis was easily achieved. Blood loss was minimal and recovery from sedation was satisfactory. He appeared to have tolerated the procedure well without any obvious immediate complications.
[2019-01-15 07:38] VITALS: PULSE 107
[2019-01-15 07:55] VITALS: BP 121/77; RESP 16
[2019-01-15 08:49] LABS: Anisocytosis Slight; Basophils % (A) 0 %; Eosinophils % (A) 1 %; HCT 33.6 % (39.0-53.0); HGB 10.2 gm/dL (13.0-17.5); Hypochromasia Moderate; Lymphocytes # (A) 0.8 k/uL (1.0-4.8); Lymphocytes % (A) 16 %; MCH 26.1 pg (25.0-35.0); MCHC 30.4 g/dL (31.0-37.0); MCV 85.7 fL (80.0-100.0); Monocytes # (A) 0.2 k/uL (0-1.0); Monocytes % (A) 5 %; Neutrophils # (A) 3.8 k/uL (1.3-7.7); Neutrophils % (A) 76 %; RBC 3.91 m/uL (4.30-5.90); RDW 18.7 % (11.5-15.5)
[2019-01-15 08:50] LABS: Platelet Count 107 k/uL (150-450)
== END 2019-01-15 08:30 | disposition home or self-care (01) ==
LOC: OR 05:41
PROVIDERS: ATTEND Internal Medicine Hematology & Oncology
DX: C85.94 Non-Hodgkin lymphoma, unspecified, lymph nodes of axilla and upper limb (principal); J44.9 Chronic obstructive pulmonary disease, unspecified; I10 Essential (primary) hypertension; E78.5 Hyperlipidemia, unspecified; D50.9 Iron deficiency anemia, unspecified; D69.6 Thrombocytopenia, unspecified; D72.810 Lymphocytopenia; Z80.9 Family history of malignant neoplasm, unspecified; Z87.891 Personal history of nicotine dependence; Z79.51 Long term (current) use of inhaled steroids; Z79.899 Other long term (current) drug therapy; Z91.040 Latex allergy status
CPT/HCPCS: 85025; 38222; J2704

== ENCOUNTER 2019-02-19 10:42 | Inpatient (IN) | payer OTHER ==
[2019-02-19] MEDS ORDERED: IBUPROFEN 600 MG TAB PO STA (11:23)
[2019-02-19] MEDS ORDERED: SODIUM CHLORIDE 0.9% 1,000 ML IV STA ×2 (11:23)
[2019-02-19] MEDS ORDERED: VANCOMYCIN IV PER PHARMACY 1 EACH MISC MISCELLANE PRN (11:23)
[2019-02-19] MEDS ORDERED: PIPERACILLIN-TAZOBACTAM 3.375 GM in SODIUM CHLORIDE 0.9% 100 ML IVPB STA (11:23)
[2019-02-19] MEDS ORDERED: ACETAMINOPHEN TAB 500 MG TAB PO STA (11:23)
[2019-02-19] MEDS ORDERED: VANCOMYCIN 2,250 MG in SODIUM CHLORIDE 0.9% 500 ML 500 ML IVPB ONE (11:45)
--- NOTE | 2019-02-19 12:09 | ED ---
Fever HPI - General Chief Complaint: Extremity Injury, Upper Stated Complaint: Extremity pain Time Seen by Provider: 02/19/19 10:44 Source: patient, EMS, RN notes reviewed, old records reviewed Mode of arrival: EMS Limitations: no limitations - History of Present Illness Initial Comments: This is a 54-year-old male the ER for evaluation, patient is a poor historian. History, patient's history obtained from prior charting. Patient presents today for fever chest pain as he has significant sialitis of the right side of his chest as well as bilateral lower extremity pain and redness and erythema, swelling of all areas. Patient states symptoms of been progressively worsening since he was just discharged from the hospital receiving chemotherapy just recently. Patient currently does have PICC line which is receiving medication 3. MD Complaint: fever, weakness -: days(s) Temperature Source: subjective Context: recent procedure, on chemotherapy Associated Symptoms: chills, headache, nausea, confusion, night sweats Treatments Prior to Arrival: none - Related Data Home Medications Medication Instructions Recorded Confirmed Allopurinol [Zyloprim] 300 mg PO DAILY 02/19/19 02/19/19 Folic Acid 1 mg PO DAILY 02/19/19 02/19/19 Furosemide [Lasix] 20 mg PO DAILY 02/19/19 02/19/19 Metoprolol Tartrate [Lopressor] 25 mg PO BID 02/19/19 02/19/19 Omeprazole [PriLOSEC] 20 mg PO BID 02/19/19 02/19/19 Allergies Allergy/AdvReac Type Severity Reaction Status Date / Time latex Allergy Rash/Hives Verified 02/19/19 11:00 ragweed pollen Allergy Unknown Verified 02/19/19 11:00 Review of Systems ROS Statement: Those systems with pertinent positive or pertinent negative responses have been documented in the HPI. ROS Other: All systems not noted in ROS Statement are negative. Past Medical History Past Medical History: Cancer, Hyperlipidemia, Hypertension Additional Past Medical History / Comment(s): Non hodgkins lymphoma. History of Any Multi-Drug Resistant Organisms: None Reported Past Surgical History: No Surgical Hx Reported Additional Past Surgical History / Comment(s): Colonoscopy, lymph node biopsy. Past Anesthesia/Blood Transfusion Reactions: No Reported Reaction Past Psychological History: Bipolar, Depression Smoking Status: Former smoker Past Alcohol Use History: None Reported Past Drug Use History: None Reported - Past Family History Father Family Medical History: No Reported History Mother Family Medical History: No Reported History General Exam Limitations: no limitations General appearance: alert, in no apparent distress Head exam: Present: atraumatic, normocephalic, normal inspection Eye exam: Present: normal appearance, PERRL, EOMI. Absent: scleral icterus, conjunctival injection, periorbital swelling ENT exam: Present: normal exam, mucous membranes moist Neck exam: Present: normal inspection. Absent: tenderness, meningismus, lymphadenopathy Respiratory exam: Present: normal lung sounds bilaterally. Absent: respiratory distress, wheezes, rales, rhonchi, stridor Cardiovascular Exam: Present: regular rate, normal rhythm, tachycardia, normal heart sounds. Absent: systolic murmur, diastolic murmur, rubs, gallop, clicks GI/Abdominal exam: Present: soft, normal bowel sounds. Absent: distended, tenderness, guarding, rebound, rigid Extremities exam: Present: normal inspection, full ROM, normal capillary refill, pedal edema, joint swelling, other (Bilateral lower extremity erythema and cellulitis from the feet to the waist). Absent: tenderness, calf tenderness Back exam: Present: normal inspection Neurological exam: Present: alert, oriented X3, CN II-XII intact Psychiatric exam: Present: normal affect, normal mood Skin exam: Present: warm, dry, intact, normal color, other (Patient does have significant cellulitis of right chest with pectoral region any recent received chemotherapy, also bilateral lower extremities). Absent: rash Course Vital Signs 02/19/19 02/19/19 02/19/19 10:50 12:20 13:39 Temperature 101.1 F H 98.2 F 97.5 F L Pulse Rate 108 H 98 94 Respiratory 19 18 20 Rate Blood Pressure 120/78 126/72 122/68 O2 Sat by Pulse 97 94 L 97 Oximetry 02/19/19 14:40 Temperature 98.4 F Pulse Rate 89 Respiratory 20 Rate Blood Pressure 102/66 O2 Sat by Pulse 96 Oximetry - Reevaluation(s) Reevaluation #1: Medical records reviewed Spoke with Dr. Hardwick who is aware of patient and knows the patient is is patient, states his relationship Medical Decision Making - Medical Decision Making 84 male the admitted for cellulitis with fever. Patient on chemotherapy. Neutropenic fever. Patient placed on broad-spectrum antibiotics. - Lab Data Result diagrams: 02/19/19 12:13 02/19/19 12:13 Lab Results 02/19/19 02/19/19 02/19/19 Range/Units 12:13 12:13 12:13 WBC 1.1 L* (3.8-10.6) k/uL RBC 2.56 L (4.30-5.90) m/uL Hgb 7.2 L (13.0-17.5) gm/dL Hct 22.0 L (39.0-53.0) % MCV 85.7 (80.0-100.0) fL MCH 27.9 (25.0-35.0) pg MCHC 32.6 (31.0-37.0) g/dL RDW 20.4 H (11.5-15.5) % Plt Count 132 L D (150-450) k/uL Neutrophils % (Manual) 10 % Lymphocytes % (Manual) 60 % Monocytes % (Manual) 29 % Metamyelocytes % 1 % Neutrophils # EFFICI[employer]Y [employer]ER BLASTING Neutrophils # (Manual) 0.11 L* (1.3-7.7) k/uL Lymphocytes # (Manual) 0.66 L (1.0-4.8) k/uL Monocytes # (Manual) 0.32 (0-1.0) k/uL Metamyelocytes # (Man) 0.01 H (0) k/uL Nucleated RBCs 0 (0-0) /100 WBC Manual Slide Review Performed Hypochromasia Slight Poikilocytosis Moderate Anisocytosis Moderate PT (9.0-12.0) sec INR (<1.2) APTT (22.0-30.0) sec Sodium 136 L (137-145) mmol/L Potassium 3.3 L (3.5-5.1) mmol/L Chloride 108 H (98-107) mmol/L Carbon Dioxide 21 L (22-30) mmol/L Anion Gap 7 mmol/L BUN 7 L (9-20) mg/dL Creatinine 0.81 (0.66-1.25) mg/dL Est GFR (CKD-EPI)AfAm >90 (>60 ml/min/1.73 sqM) Est GFR (CKD-EPI)NonAf >90 (>60 ml/min/1.73 sqM) Glucose 91 (74-99) mg/dL Plasma Lactic Acid Marcos 1.4 (0.7-2.0) mmol/L Calcium 6.1 L* (8.4-10.2) mg/dL Phosphorus 2.2 L (2.5-4.5) mg/dL Magnesium 1.3 L (1.6-2.3) mg/dL Total Bilirubin 0.5 (0.2-1.3) mg/dL AST 22 (17-59) U/L ALT 41 (21-72) U/L Alkaline Phosphatase 178 H (38-126) U/L Troponin I (0.000-0.034) ng/mL NT-Pro-B Natriuret Pep pg/mL Total Protein 4.5 L (6.3-8.2) g/dL Albumin 2.6 L (3.5-5.0) g/dL Urine Color Urine Appearance (Clear) Urine pH (5.0-8.0) Ur Specific [place] (1.001-1.035) Urine Protein (Negative) Urine Glucose (UA) (Negative) Urine Ketones (Negative) Urine Blood (Negative) Urine Nitrite (Negative) Urine Bilirubin (Negative) Urine Urobilinogen (<2.0) mg/dL Ur Leukocyte Esterase (Negative) 02/19/19 02/19/19 02/19/19 Range/Units 12:13 12:13 12:13 WBC (3.8-10.6) k/uL RBC (4.30-5.90) m/uL Hgb (13.0-17.5) gm/dL Hct (39.0-53.0) % MCV (80.0-100.0) fL MCH (25.0-35.0) pg MCHC (31.0-37.0) g/dL RDW (11.5-15.5) % Plt Count (150-450) k/uL Neutrophils % (Manual) % Lymphocytes % (Manual) % Monocytes % (Manual) % Metamyelocytes % % Neutrophils # Neutrophils # (Manual) (1.3-7.7) k/uL Lymphocytes # (Manual) (1.0-4.8) k/uL Monocytes # (Manual) (0-1.0) k/uL Metamyelocytes # (Man) (0) k/uL Nucleated RBCs (0-0) /100 WBC Manual Slide Review Hypochromasia Poikilocytosis Anisocytosis PT 11.7 (9.0-12.0) sec INR 1.1 (<1.2) APTT 28.1 (22.0-30.0) sec Sodium (137-145) mmol/L Potassium (3.5-5.1) mmol/L Chloride (98-107) mmol/L Carbon Dioxide (22-30) mmol/L Anion Gap mmol/L BUN (9-20) mg/dL Creatinine (0.66-1.25) mg/dL Est GFR (CKD-EPI)AfAm (>60 ml/min/1.73 sqM) Est GFR (CKD-EPI)NonAf (>60 ml/min/1.73 sqM) Glucose (74-99) mg/dL Plasma Lactic Acid Marcos (0.7-2.0) mmol/L Calcium (8.4-10.2) mg/dL Phosphorus (2.5-4.5) mg/dL Magnesium (1.6-2.3) mg/dL Total Bilirubin (0.2-1.3) mg/dL AST (17-59) U/L ALT (21-72) U/L Alkaline Phosphatase (38-126) U/L Troponin I 0.019 (0.000-0.034) ng/mL NT-Pro-B Natriuret Pep 2370 pg/mL Total Protein (6.3-8.2) g/dL Albumin (3.5-5.0) g/dL Urine Color Urine Appearance (Clear) Urine pH (5.0-8.0) Ur Specific [place] (1.001-1.035) Urine Protein (Negative) Urine Glucose (UA) (Negative) Urine Ketones (Negative) Urine Blood (Negative) Urine Nitrite (Negative) Urine Bilirubin (Negative) Urine Urobilinogen (<2.0) mg/dL Ur Leukocyte Esterase (Negative) 02/19/19 Range/Units 12:13 WBC (3.8-10.6) k/uL RBC (4.30-5.90) m/uL Hgb (13.0-17.5) gm/dL Hct (39.0-53.0) % MCV (80.0-100.0) fL MCH (25.0-35.0) pg MCHC (31.0-37.0) g/dL RDW (11.5-15.5) % Plt Count (150-450) k/uL Neutrophils % (Manual) % Lymphocytes % (Manual) % Monocytes % (Manual) % Metamyelocytes % % Neutrophils # Neutrophils # (Manual) (1.3-7.7) k/uL Lymphocytes # (Manual) (1.0-4.8) k/uL Monocytes # (Manual) (0-1.0) k/uL Metamyelocytes # (Man) (0) k/uL Nucleated RBCs (0-0) /100 WBC Manual Slide Review Hypochromasia Poikilocytosis Anisocytosis PT (9.0-12.0) sec INR (<1.2) APTT (22.0-30.0) sec Sodium (137-145) mmol/L Potassium (3.5-5.1) mmol/L Chloride (98-107) mmol/L Carbon Dioxide (22-30) mmol/L Anion Gap mmol/L BUN (9-20) mg/dL Creatinine (0.66-1.25) mg/dL Est GFR (CKD-EPI)AfAm (>60 ml/min/1.73 sqM) Est GFR (CKD-EPI)NonAf (>60 ml/min/1.73 sqM) Glucose (74-99) mg/dL Plasma Lactic Acid Marcos (0.7-2.0) mmol/L Calcium (8.4-10.2) mg/dL Phosphorus (2.5-4.5) mg/dL Magnesium (1.6-2.3) mg/dL Total Bilirubin (0.2-1.3) mg/dL AST (17-59) U/L ALT (21-72) U/L Alkaline Phosphatase (38-126) U/L Troponin I (0.000-0.034) ng/mL NT-Pro-B Natriuret Pep pg/mL Total Protein (6.3-8.2) g/dL Albumin (3.5-5.0) g/dL Urine Color Light Yellow Urine Appearance Clear (Clear) Urine pH 6.0 (5.0-8.0) Ur Specific [place] 1.008 (1.001-1.035) Urine Protein Negative (Negative) Urine Glucose (UA) Negative (Negative) Urine Ketones Negative (Negative) Urine Blood Negative (Negative) Urine Nitrite Negative (Negative) Urine Bilirubin Negative (Negative) Urine Urobilinogen <2.0 (<2.0) mg/dL Ur Leukocyte Esterase Negative (Negative) - EKG Data -: EKG Interpreted by Me (EKG shows sinus tachycardia IV, KS 136, QRS 82, QTc 502) - Radiology Data Radiology results: report reviewed (Chest x-rays negative for acute disease), image reviewed Critical Care Time Critical Care Time: Yes Total Critical Care Time: 31 Disposition Clinical Impression: Lymphoma, Sepsis, Cellulitis, Bilateral lower leg cellulitis, Cellulitis of chest wall, Neutropenic fever Disposition: ADMITTED IP TO THIS HOSP Condition: Fair Is patient prescribed a controlled substance at d/c from ED?: No
[2019-02-19 12:32] LABS: Appearance,Urine Clear (Clear); Bilirubin,Urine Negative (Negative); Blood,Urine Negative (Negative); Color,Urine Light Yellow; Glucose,Urine (UA) Negative (Negative); Ketones,Urine Negative (Negative); Leukocyte Esterase,Urine Negative (Negative); Nitrite,Urine Negative (Negative); Protein,Urine Negative (Negative); Specific Gravity,Urine 1.008 (1.001-1.035); Urobilinogen,Urine <2.0 mg/dL (<2.0)
[2019-02-19 12:34] LABS: ALT 41 U/L (21-72); AST 22 U/L (17-59); Albumin 2.6 g/dL (3.5-5.0); Alkaline Phosphatase 178 U/L (38-126); Anion Gap 7 mmol/L; Blood Urea Nitrogen 7 mg/dL (9-20); Carbon Dioxide 21 mmol/L (22-30); Chloride 108 mmol/L (98-107); Glucose 91 mg/dL (74-99); Magnesium 1.3 mg/dL (1.6-2.3); Phosphorus 2.2 mg/dL (2.5-4.5); Potassium 3.3 mmol/L (3.5-5.1); Sodium 136 mmol/L (137-145); Total Bilirubin 0.5 mg/dL (0.2-1.3); Total Protein 4.5 g/dL (6.3-8.2)
[2019-02-19 12:36] LABS: Anisocytosis Moderate; HGB 7.2 gm/dL (13.0-17.5); Hypochromasia Slight; MCH 27.9 pg (25.0-35.0); MCHC 32.6 g/dL (31.0-37.0); MCV 85.7 fL (80.0-100.0); Mean Platelet Volume 7.9; Poikilocytosis Moderate; RBC 2.56 m/uL (4.30-5.90); RDW 20.4 % (11.5-15.5)
[2019-02-19 12:39] LABS: INR 1.1 (<1.2); Partial Thromboplastin Time 28.1 sec (22.0-30.0); Prothrombin Time 11.7 sec (9.0-12.0)
[2019-02-19 12:45] LABS: Calcium 6.1 mg/dL (8.4-10.2)
[2019-02-19 12:49] LABS: Platelet Count 132 k/uL (150-450); WBC 1.1 k/uL (3.8-10.6)
[2019-02-19 13:15] LABS: Neutrophils % (M) 10 %
[2019-02-19 13:16] LABS: Lymphocytes # (M) 0.66 k/uL (1.0-4.8); Metamyelocytes # (M) 0.01 k/uL (0); Metamyelocytes % 1 %; Monocytes # (M) 0.32 k/uL (0-1.0); Neutrophils # (M) 0.11 k/uL (1.3-7.7); Nucleated Red Blood Cells 0 /100 WBC (0-0); Total Cells Counted 100
[2019-02-19] MEDS ORDERED: INFLUENZA VACCINE (6 MOS+) 60 MCG/0.5 ML SYRINGE IM ONE (14:08)
[2019-02-19] MEDS ORDERED: PNEUMOCOCCAL VACC-PNEUMOVAX 23 25 MCG/0.5 ML VIAL IM ONE (14:08)
--- NOTE | 2019-02-19 14:14 | XR ---
EXAMINATION TYPE: XR chest 2V DATE OF EXAM: 02/19/2019 COMPARISON: 01/14/2019 HISTORY: Dizziness and weakness TECHNIQUE: Frontal and lateral views of the chest are obtained. FINDINGS: There is widening of the superior mediastinum as seen on the prior exam, decreased in size as compared to the prior. This relates to the patient's known mediastinal mass involving the right u pper lobe. Right-sided Mediport is unchanged in position. Left-sided PICC is been inserted in the int erim terminating in the brachiocephalic vein. New very trace pleural effusion blunts the gastric angl e. Scattered areas of linear atelectasis are noted. These are subsegmental. Mild degenerative changes of the thoracic spine are present. IMPRESSION: Development of a trace right pleural effusion and minimal scattered areas of subsegmenta l atelectasis. The patient's known mediastinal masses decreased in comparison to the prior.
[2019-02-19] MEDS ORDERED: Potassium Replacement Protocol 1 EACH MISC MISCELLANE PRN (14:15)
[2019-02-19] MEDS ORDERED: Magnesium Replacement Protocol 1 EACH MISC MISCELLANE PRN (14:15)
[2019-02-19] MEDS: SODIUM CHLORIDE 0.9% 500 ML 500 ML IV SCH ×3 (14:23→19:41)
[2019-02-19] MEDS: SODIUM CHLORIDE 0.9% 1,000 ML IV SCH ×2 (16:39→16:41)
[2019-02-19] MEDS: PANTOPRAZOLE 40 MG TABLET PO SCH (16:45)
[2019-02-19] MEDS: HYDROcodone/APAP 5-325MG 1 EACH TAB PO PRN (17:58)
[2019-02-19] MEDS ORDERED: PIPERACILLIN-TAZOBACTAM 3.375 GM in SODIUM CHLORIDE 0.9% 100 ML IVPB SCH (20:00)
[2019-02-19] MEDS: METOPROLOL TARTRATE 25 MG TAB PO SCH (20:26)
[2019-02-19] MEDS: VANCOMYCIN 2,000 MG in SODIUM CHLORIDE 0.9% 500 ML 500 ML IVPB SCH (20:26)
--- NOTE | 2019-02-19 20:35 | CT ---
EXAMINATION TYPE: CT chest wo con DATE OF EXAM: 02/19/2019 COMPARISON: 12/14/2018 HISTORY: Right sided chest pain. CT DLP: 655.4 mGycm. Automated Exposure Control for Dose Reduction was Utilized. TECHNIQUE: CT scan of the thorax is performed without IV contrast. FINDINGS: There are bilateral central venous catheter is noted with the tips in the superior vena cava. There a re multiple enlarged anterior and middle mediastinal lymph nodes. These measure up to 3 x 3 cm. There are bilateral pleural effusions and larger on the right side. There is no pericardial effusion. Hear t size is normal. There is some patchy nodular infiltrate in the right upper lobe. There is minimal n odular infiltrate superior segment left lower lobe. There is calcified gallstones. Upper abdominal visualized soft tissues are otherwise unremarkable. I see no bony destructive process. IMPRESSION: There is moderate mediastinal adenopathy with enlarged anterior and middle mediastinal ly mph nodes and subcarinal lymph nodes that appears improved compared to last CT scan. There is new bi lateral pleural effusions. There is some new patchy nodular infiltrate in the right upper lobe and correia perior segment left lower lobe. Infiltrate is nonspecific but more likely inflammatory.
--- NOTE | 2019-02-19 20:44 | HP ---
HISTORY AND PHYSICAL CHIEF COMPLAINT: Njiys[age]dord[age]oyvl-old white male came to the hospital with fever, chills, cellulitis on the right side of the chest secondary to possible chemo infiltration on last admission; lower extremity pain, redness, erythema and swelling of all areas, progressively worsening. Patient from chemotherapy last week and was found to have multiple metabolic abnormalities, at which time he was admitted with fever, weakness, chills, nausea, confusion, night sweats. PAST MEDICAL HISTORY: 1. Beta cell lymphoma. 2. Gout. 3. Diastolic heart failure. 4. Hypertension. 5. Dyslipidemia. REVIEW OF SYSTEMS: Fourteen-point review of systems negative except for as mentioned in HPI. As mentioned, he has a history of non-Hodgkin's lymphoma. PHYSICAL EXAMINATION: Temperature is 101.1, pulse 90s to 100s, respiratory rate 18 to 20, blood pressure 120s over 70s, oxygen 94% to 97%. CARDIOVASCULAR: S1, S2. Tachycardic. Scattered wheezes. GI: Distended, obese. EXTREMITIES: Bilateral lower extremity erythema and cellulitis. Cranial nerves are intact. SKIN: Warm, dry. Redness and swelling of the lower extremities. HEENT: Normocephalic, atraumatic. Hemoglobin 7.2, white count 1.1. ASSESSMENT/PLAN: 1. Neutropenic fever. 2. Sepsis. 3. Diastolic heart failure. 4. Cellulitis in extremities. 5. Chemotherapy infiltration, right upper chest. 6. Broad-spectrum antibiotics. 7. Infectious Disease consult. 8. Oncology consult. 9. Home medications will be restarted. MMODL / IJN: [id number] /
[2019-02-19] MEDS: FILGRASTIM-SNDZ 480 MCG/0.8 ML SYRINGE SQ SCH (21:09)
[2019-02-20] MEDS: SODIUM CHLORIDE 0.9% 1,000 ML IV SCH ×4 (00:08→18:28)
[2019-02-20] MEDS: CEFEPIME 2 GM in SODIUM CHLORIDE 0.9% 100 ML IVPB SCH ×4 (00:08→23:59)
--- NOTE | 2019-02-20 00:50 | P.CONS ---
History of Present Illness - Reason for Consult Consult date: 02/19/19 T cell NHL on chemo. febrile neutropenia - History of Present Illness The patient is a 54-year-old white male, initially seen in consult in 12/22. He had been transferred here from [facility], with complains of decreased appetite, progressive weakness and a 30 pound weight loss over the past 3-4 months. He was found to have extensive adenopathy on exam and imaging and had a lymph node biopsy, which showed evidence of T-cell non-Hodgkin's lymphoma. The patient's outpatient follow-up was hindered by patient's social issues, including lack of transport, and impending homelessness. He was ultimately seen in the office and had a bone marrow aspiration biopsy, showing involvement with the same malignancy. He was ultimately able to have his social situation improved, after moving in with his father, and his sister agreeing to drive him to his appointments. The patient had a PET scan scheduled, and was supposed to get evaluated at [facility]. However he got admitted to [facility], prior to that, with progressive symptoms of weakness, edema, diarrhea, tumor fever, and shortness of breath. He was started on chemotherapy in patient with the EPOCH regimen. Treatment was complicated by extravasation of chemotherapy, leading to right upper chest wall cellulitis. Chemotherapy was interrupted, and the patient was treated with hyaluronidase injections. He was evaluated by surgery and not felt to require surgical intervention. He was able to resume and complete chemotherapy, and was then discharged on 02/13/19. The patient was unable to get growth factors as planned as an outpatient, due to coverage issues. He came back to the hospital, complaining of weakness, LE swelling,and fever ( 101.1 in the ER). he was also complaining of continued burning pain in the right chest wall. He denied any cough. Diarrhea has improved. He actually feels that his breathing and appetite are also better. On questioning, he did not feel that the extent of the right chest wall cellulitis was worse. Review of Systems Constitutional: Reports fever, Reports sweats, Reports weakness Eyes: denies blurred vision, denies pain Ears: deny: decreased hearing, ear discharge, earache, tinnitus Ears, nose, mouth and throat: Denies headache, Denies sore throat Cardiovascular: Reports decreased exercise tolerance, Reports edema Respiratory: Reports dyspnea (improved) Gastrointestinal: Reports diarrhea (improved) Genitourinary: Reports as per HPI Musculoskeletal: Reports muscle weakness Integumentary: Reports as per HPI, Reports color changes Neurological: Reports weakness, Denies numbness Psychiatric: Reports anxiety, Reports difficulty concentrating, Reports mood swings Endocrine: Reports excessive sweating, Reports fatigue, Reports weight change Hematologic/Lymphatic: Reports as per HPI, Reports lymphadenopathy Past Medical History Past Medical History: Cancer, Hyperlipidemia, Hypertension Additional Past Medical History / Comment(s): Non hodgkins lymphoma. History of Any Multi-Drug Resistant Organisms: None Reported Past Surgical History: No Surgical Hx Reported Additional Past Surgical History / Comment(s): Colonoscopy, lymph node biopsy. Past Anesthesia/Blood Transfusion Reactions: No Reported Reaction Additional Past Anesthesia/Blood Transfusion Reaction / Comm: Pt has received blood in past without reaction. Past Psychological History: Bipolar, Depression Smoking Status: Former smoker Past Alcohol Use History: None Reported Past Drug Use History: None Reported - Past Family History Father Family Medical History: No Reported History Additional Family Medical History / Comment(s): Father is healthy and is 82 yrs old. Mother Family Medical History: No Reported History Additional Family Medical History / Comment(s): Mother from dementia. Medications and Allergies Home Medications Medication Instructions Recorded Confirmed Type Allopurinol [Zyloprim] 300 mg PO DAILY 02/19/19 02/19/19 History Folic Acid 1 mg PO DAILY 02/19/19 02/19/19 History Furosemide [Lasix] 20 mg PO DAILY 02/19/19 02/19/19 History Metoprolol Tartrate [Lopressor] 25 mg PO BID 02/19/19 02/19/19 History Omeprazole [PriLOSEC] 20 mg PO BID 02/19/19 02/19/19 History Allergies Allergy/AdvReac Type Severity Reaction Status Date / Time latex Allergy Rash/Hives Verified 02/19/19 11:00 ragweed pollen Allergy Unknown Verified 02/19/19 11:00 Physical Exam Vitals: Vital Signs Temp Pulse Pulse Resp BP BP Pulse Ox 02/19/19 20:38 97.7 F 85 20 121/73 96 02/19/19 15:00 97.7 F 83 18 149/60 96 02/19/19 14:40 98.4 F 89 20 102/66 96 02/19/19 13:39 97.5 F L 94 20 122/68 97 02/19/19 12:20 98.2 F 98 18 126/72 94 L 02/19/19 10:50 101.1 F H 108 H 19 120/78 97 Intake and Output 02/19/19 02/19/19 02/20/19 14:59 22:59 06:59 Other: Voiding Method Toilet # Voids 1 Weight 127.006 kg - Constitutional General appearance: no acute distress - EENT Eyes: EOMI, PERRLA ENT: hearing grossly normal, normal oropharynx - Neck Neck: lymphadenopathy (1-2 Left Sc, max 6-7 mm, diminished from prior) Thyroid: bilateral: normal size - Respiratory Respiratory: bilateral: CTA - Cardiovascular Rhythm: regular Heart sounds: normal: S1, S2 - Gastrointestinal General gastrointestinal: normal bowel sounds, soft - Integumentary rt chest wall - extensive cellulitis with induration upper medial, extent overall stable new areas of scabbing. No fluctuation, or crepitus Integumentary: calor - Neurologic Neurologic: CNII-XII intact - Musculoskeletal Musculoskeletal: generalized weakness, strength equal bilaterally - Psychiatric Psychiatric: A&O x's 3, appropriate affect Results CBC & Chem 7: 02/19/19 12:13 02/19/19 12:13 Labs: Abnormal Lab Results - Last 24 Hours (Table) 02/19/19 02/19/19 Range/Units 12:13 12:13 WBC 1.1 L* (3.8-10.6) k/uL RBC 2.56 L (4.30-5.90) m/uL Hgb 7.2 L (13.0-17.5) gm/dL Hct 22.0 L (39.0-53.0) % RDW 20.4 H (11.5-15.5) % Plt Count 132 L D (150-450) k/uL Neutrophils # (Manual) 0.11 L* (1.3-7.7) k/uL Lymphocytes # (Manual) 0.66 L (1.0-4.8) k/uL Metamyelocytes # (Man) 0.01 H (0) k/uL Sodium 136 L (137-145) mmol/L Potassium 3.3 L (3.5-5.1) mmol/L Chloride 108 H (98-107) mmol/L Carbon Dioxide 21 L (22-30) mmol/L BUN 7 L (9-20) mg/dL Calcium 6.1 L* (8.4-10.2) mg/dL Phosphorus 2.2 L (2.5-4.5) mg/dL Magnesium 1.3 L (1.6-2.3) mg/dL Alkaline Phosphatase 178 H (38-126) U/L Total Protein 4.5 L (6.3-8.2) g/dL Albumin 2.6 L (3.5-5.0) g/dL Microbiology - Last 24 Hours (Table) 02/19/19 12:13 Urine Culture - Preliminary Urine,Voided Chest x-ray: report reviewed Assessment and Plan (1) Neutropenic fever Narrative/Plan: The patient has developed neutropenia due to chemotherapy. In fact he was having decreasing counts even prior to starting chemotherapy due to lymphoma. The patient has been started on vancomycin and Zosyn. UA was overall negative. Blood cultures are pending. Chest x-ray shows minor infiltrate. Other possible sources include right chest wall cellulitis, as well as his central ghazala es. ID consult has been placed Continue antibiotics, and start growth factors Await cultures The right chest wall port is difficult use at this time due to surrounding cellulitis. Therefore at this time the left approximately PICC line is his only reliable venous access. I would therefore recommend that he retain that, and continue antibiotics, unless recommended otherwise by ID based on cultures. Current Visit: Yes Status: Acute Code(s): D70.9 - NEUTROPENIA, UNSPECIFIED; R50.81 - FEVER PRESENTING WITH CONDITIONS CLASSIFIED ELSEWHERE SNOMED Code(s): 548737830 (2) Cellulitis of chest wall Narrative/Plan: This is chemical, due to acceleration of chemotherapy. Patient had a CT chest at [facility], which did not show any necrosis, abscess formation or free air. Therefore conservative management was recommended by surgery. On exam, the extent of cellulitis and induration appears to be fairly stable. There was no crepitus or fluctuation noted. There are some new areas of scabbing which appear superficial. Is no definite skin breakdown. Erythema might be somewhat more prominent and therefore superimposed infectious cellulitis is a possibility. As noted the patient is on antibiotics. Monitor for any evidence of progressive necrosis/ abscess formation, in which case surgical intervention will be requested. CT chest to reassess soft tissues will be ordered will be ordered Current Visit: Yes Status: Acute Code(s): L03.313 - CELLULITIS OF CHEST WALL SNOMED Code(s): 84981498 (3) Pancytopenia Narrative/Plan: Due to antineoplastic chemotherapy. Affect does have been ordered to accelerate white cell recovery. Monitor counts, and transfuse as needed to keep hemoglobin greater than 7 and platelets greater than 10. It radiated blood products only Current Visit: Yes Status: Acute Code(s): D61.818 - OTHER PANCYTOPENIA SNOMED Code(s): 241173858 (4) Lymphoma Narrative/Plan: Diagnostic and therapeutic circumstances as described. Clinically the patient appears to have had a response with decrease in palpable adenopathy, and some improvement in lymphoma related symptoms. Labs not show any evidence of tumor lysis. Monitor for the same. Continue Allopurinol Current Visit: Yes Status: Acute Code(s): C85.90 - NON-HODGKIN LYMPHOMA, UNSPECIFIED, UNSPECIFIED SITE SNOMED Code(s): 201074436
[2019-02-20] MEDS: HYDROcodone/APAP 5-325MG 1 EACH TAB PO PRN ×4 (00:55→20:43)
[2019-02-20] MEDS: VANCOMYCIN 2,000 MG in SODIUM CHLORIDE 0.9% 500 ML 500 ML IVPB SCH ×3 (04:19→20:41)
[2019-02-20] MEDS: ALLOPURINOL 300 MG TAB PO SCH (07:14)
[2019-02-20] MEDS: FOLIC ACID 1 MG TAB PO SCH (07:14)
[2019-02-20] MEDS: PANTOPRAZOLE 40 MG TABLET PO SCH ×2 (07:14→18:27)
[2019-02-20] MEDS: METOPROLOL TARTRATE 25 MG TAB PO SCH ×2 (07:14→20:42)
[2019-02-20 07:46] LABS: Anisocytosis Moderate; HCT 23.6 % (39.0-53.0); HGB 7.2 gm/dL (13.0-17.5); Hypochromasia Moderate; MCH 26.6 pg (25.0-35.0); MCHC 30.4 g/dL (31.0-37.0); MCV 87.7 fL (80.0-100.0); Mean Platelet Volume 7.4; Platelet Count 180 k/uL (150-450); Poikilocytosis Moderate; RBC 2.69 m/uL (4.30-5.90); RDW 20.3 % (11.5-15.5); WBC 1.5 k/uL (3.8-10.6)
[2019-02-20 08:05] LABS: Anion Gap 6 mmol/L; Blood Urea Nitrogen 7 mg/dL (9-20); Carbon Dioxide 21 mmol/L (22-30); Chloride 112 mmol/L (98-107); Glucose 95 mg/dL (74-99); Magnesium 1.4 mg/dL (1.6-2.3); Phosphorus 2.3 mg/dL (2.5-4.5); Potassium 3.3 mmol/L (3.5-5.1); Sodium 139 mmol/L (137-145); Uric Acid 2.3 mg/dL (3.5-8.5)
[2019-02-20 08:15] LABS: Calcium 5.9 mg/dL (8.4-10.2)
[2019-02-20] MEDS ORDERED: Potassium Replacement Protocol 1 EACH MISC MISCELLANE PRN (08:16)
[2019-02-20] MEDS: POTASSIUM CHLORIDE ER 20 MEQ TAB.ER PO SCH ×2 (09:12→10:05)
[2019-02-20 09:53] LABS: Neutrophils % (M) 19 %
[2019-02-20 09:54] LABS: Band Neutrophils % 2 %; Eosinophils # (M) 0.08 k/uL (0-0.7); Lymphocytes # (M) 0.69 k/uL (1.0-4.8); Monocytes # (M) 0.42 k/uL (0-1.0); Nucleated Red Blood Cells 0 /100 WBC (0-0); Total Cells Counted 100
[2019-02-20] MEDS ORDERED: CALCIUM GLUCONATE 2 GM in SODIUM CHLORIDE 0.9% 100 ML IVPB ONE (10:13)
[2019-02-20] MEDS: IPRATROPIUM-ALBUTEROL 3 ML NEB INHALATION PRN ×2 (12:40→20:57)
--- NOTE | 2019-02-20 12:55 | P.PN ---
Subjective Progress Note Date: 02/20/19 The patient feels better overall today. No fevers noted. He has a mild cough. He continues to have loose bowel movements, about 6-8/24 hours. No obvious bleeding. He denies any increased pain, drainage or redness in the right chest wall area. Objective - Vital Signs Vital signs: Vital Signs Temp 98.2 F 02/20/19 05:24 Pulse 76 02/20/19 12:40 Resp 20 02/20/19 05:24 BP 118/59 02/20/19 05:24 Pulse Ox 96 02/20/19 05:24 Intake & Output 02/19/19 02/20/19 02/20/19 18:59 06:59 18:59 Intake Total 240 3450 Balance 240 3450 Weight 127.006 kg Intake: Intake, IV Titration 1900 Amount Calcium Gluconate 2 gm In 100 Sodium Chloride 0.9% 100 ml @ 100 mls/hr IVPB ONCE ONE Rx#:[id number] Cefepime 2 gm In Sodium 100 Chloride 0.9% 100 ml @ 200 mls/hr IVPB Q[facility]HR [facility] Rx#:[id number] Sodium Chloride 0.9% 1, 1200 000 ml @ 150 mls/hr IV . Q6H40M [facility] Rx#:[id number] Vancomycin 2,000 mg In 500 Sodium Chloride 0.9% 500 ml 500 ml @ 167 mls/hr IVPB Q8H [facility] Rx#: [id number] Oral 240 1550 Other: Voiding Method Toilet Toilet # Voids 1 4 # Bowel Movements 2 - Constitutional General appearance: Present: no acute distress - EENT Eyes: Present: EOMI ENT: Present: hearing grossly normal, normal oropharynx - Respiratory Respiratory: bilateral: CTA - Cardiovascular Rhythm: regular Heart sounds: normal: S1, S2 - Gastrointestinal General gastrointestinal: Present: normal bowel sounds, soft - Integumentary Integumentary Comment(s): Area of concern of right chest wall, is stable in extent. Redness and warmth is mildly diminished. Inferior area of scabbing is slightly increased in size. Tenderness is stable and most prominent around the port. No obvious fluctuation or crepitus Integumentary: Present: calor, cellulitis - Neurologic Neurologic: Present: CNII-XII intact - Musculoskeletal Musculoskeletal: Present: generalized weakness, strength equal bilaterally - Psychiatric Psychiatric: Present: A&O x's 3, appropriate affect - Labs CBC & Chem 7: 02/20/19 07:30 02/20/19 07:30 Labs: Abnormal Lab Results - Last 24 Hours (Table) 02/19/19 02/20/19 02/20/19 Range/Units 12:13 07:30 07:30 WBC 1.5 L (3.8-10.6) k/uL RBC 2.69 L (4.30-5.90) m/uL Hgb 7.2 L (13.0-17.5) gm/dL Hct 23.6 L (39.0-53.0) % MCHC 30.4 L (31.0-37.0) g/dL RDW 20.3 H (11.5-15.5) % Neutrophils # (Manual) 0.11 L* 0.30 L* (1.3-7.7) k/uL Lymphocytes # (Manual) 0.66 L 0.69 L (1.0-4.8) k/uL Metamyelocytes # (Man) 0.01 H (0) k/uL Potassium 3.3 L (3.5-5.1) mmol/L Chloride 112 H (98-107) mmol/L Carbon Dioxide 21 L (22-30) mmol/L BUN 7 L (9-20) mg/dL Uric Acid 2.3 L (3.5-8.5) mg/dL Calcium 5.9 L* (8.4-10.2) mg/dL Phosphorus 2.3 L (2.5-4.5) mg/dL Magnesium 1.4 L (1.6-2.3) mg/dL Microbiology - Last 24 Hours (Table) 02/19/19 12:13 Urine Culture - Preliminary Urine,Voided Assessment and Plan (1) Neutropenic fever Narrative/Plan: A fever but it is improved. The patient is on growth factors, with slight increase in the BC noted today. Continue IV antibiotics. Cultures negative so far Current Visit: Yes Status: Acute Code(s): D70.9 - NEUTROPENIA, UNSPECIFIED; R50.81 - FEVER PRESENTING WITH CONDITIONS CLASSIFIED ELSEWHERE SNOMED Code(s): 620268562 (2) Cellulitis of chest wall Narrative/Plan: CT of the chest did not mention any significant abnormality involving the soft tissues of the right chest wall. Physical exam is stable to mildly improved. Continue to monitor with ongoing topical therapy. Current Visit: Yes Status: Acute Code(s): L03.313 - CELLULITIS OF CHEST WALL SNOMED Code(s): 45504161 (3) Pancytopenia Narrative/Plan: There is slight increase in WBC with growth factors. Hemoglobin is stable at 7.2 while platelets are actually improved into the normal range. Continue to monitor with transfusion support as needed Current Visit: Yes Status: Acute Code(s): D61.818 - OTHER PANCYTOPENIA SNOMED Code(s): 078943094 (4) Lymphoma Narrative/Plan: The patient is continuing on allopurinol. There has been a clinical response to cycle 1 as described. Continue labs to monitor for tumor lysis. Current Visit: Yes Status: Acute Code(s): C85.90 - NON-HODGKIN LYMPHOMA, UNSPECIFIED, UNSPECIFIED SITE SNOMED Code(s): 842169711
[2019-02-20] MEDS: MUPIROCIN 2% OINT 22 GM TUBE TOPICAL SCH ×2 (14:56→20:55)
[2019-02-20] MEDS: LOPERAMIDE 2 MG CAP PO PRN (16:27)
--- NOTE | 2019-02-20 17:53 | P.CONS ---
History of Present Illness - Reason for Consult Consult date: 02/20/19 - Chief Complaint fever - History of Present Illness 54-year-old male that has a very complex medical history which began in December of this year. At that point in time the patient was feeling poorly was having fevers chills in a 30 pound weight loss. He was feeling very poorly overall was hospitalized at a local facility and then transferred to [facility]. 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 The patient has been initiated to chemotherapy. There was great d ifficulties because of significant psychosocial problems, eventually the family was able to come together and provide him with residents and transportation for his interventional chemotherapy. It is related the patient was cared for outside facility. Chemotherapy was applied to the [facility] for there was extravasation of the chemotherapy and he was chest wall. Having some ongoing difficulties since. Now presents feeling poorly with fever and was found evidence of significant neutropenia after his chemotherapy. Because of the abnormality of the chest wall and fever the consult was requested. The patient relates that he does feel somewhat poorly. His fever though seems to be improving since coming to hospital. He has tenderness to the chest wall but does not relate that there is been much drainage in it has not worsened recently. Review of Systems HEENT patient denies sinus her mouth discomfort. No dysphagia. No oral pain. No neck stiffness or lymphadenopathy Lungs patient denies shortness of breath cough or sputum production no hemoptysis Heart patient denies chest pain or pressure. He is not having dyspnea on exertion, orthopnea, or syncope Abdomen patient denies abdominal pain, denies nausea vomiting constipation or diarrhea. Denies hematemesis melena or hematochezia Extremities patient denies pain or swelling to the upper extremities. Patient as per the history of present illness has difficulties with the ulcerations to the bilateral heels but does not have ongoing difficulties with edema Neuro patient denies dizziness, or new deficits Skin: as noted per the history of present illness his extensive area of erythema thickness and tenderness to the right anterior chest wall to about the axillary area. Past Medical History Past Medical History: Cancer, Hyperlipidemia, Hypertension Additional Past Medical History / Comment(s): Non hodgkins lymphoma. History of Any Multi-Drug Resistant Organisms: None Reported Past Surgical History: No Surgical Hx Reported Additional Past Surgical History / Comment(s): Colonoscopy, lymph node biopsy. Past Anesthesia/Blood Transfusion Reactions: No Reported Reaction Additional Past Anesthesia/Blood Transfusion Reaction / Comm: Pt has received blood in past without reaction. Past Psychological History: Bipolar, Depression Additional Psychological History / Comment(s): single. No children. Family are involved in helping him with his current situation. 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 no experience. No international travel. No animal exposures Smoking Status: Former smoker Past Alcohol Use History: None Reported Past Drug Use History: None Reported - Past Family History Father Family Medical History: No Reported History Additional Family Medical History / Comment(s): Father is healthy and is 82 yrs old. Mother Family Medical History: No Reported History Additional Family Medical History / Comment(s): Mother from dementia. Medications and Allergies Home Medications and Allergies Comment(s): Current Medications Hydrocodone Bitart/Acetaminophen ([place] 5-325) 1 each PO Q4HR PRN PRN Reason: Pain Last Admin: 02/20/19 13:53 Dose: 1 each Documented by: Albuterol/Ipratropium (Duoneb 0.5 Mg-3 Mg/3 Ml Soln) 3 ml INHALATION RT-QID PRN PRN Reason: Shortness Of Breath Or Wheezing Last Admin: 02/20/19 12:40 Dose: 3 ml Documented by: Allopurinol (Zyloprim) 300 mg PO DAILY [facility] Last Admin: 02/20/19 07:14 Dose: 300 mg Documented by: Filgrastim (Zarxio) 480 mcg SQ HS [facility] Last Admin: 02/19/19 21:09 Dose: 480 mcg Documented by: Folic Acid (Folic Acid) 1 mg PO DAILY [facility] Last Admin: 02/20/19 07:14 Dose: 1 mg Documented by: Sodium Chloride (Saline 0.9%) 1,000 mls @ 150 mls/hr IV .Q6H40M [facility] Last Admin: 02/20/19 16:31 Dose: Not Given Documented by: Vancomycin HCl 2,000 mg/ (Sodium Chloride) 500 mls @ 167 mls/hr IVPB Q8H [facility] Last Admin: 02/20/19 12:52 Dose: 167 mls/hr Documented by: Cefepime HCl 2 gm/ Sodium (Chloride) 100 mls @ 200 mls/hr IVPB Q8HR [facility] Last Admin: 02/20/19 16:27 Dose: 200 mls/hr Documented by: Loperamide HCl (Imodium) 2 mg PO QID PRN PRN Reason: Diarrhea Last Admin: 02/20/19 16:27 Dose: 2 mg Documented by: Metoprolol Tartrate (Lopressor) 25 mg PO BID [facility] Last Admin: 02/20/19 07:14 Dose: 25 mg Documented by: Miscellaneous Information (Potassium Per Protocol) 1 each MISCELLANE DAILY PRN; Protocol PRN Reason: Per Protocol Miscellaneous Information (Magnesium Per Protocol) 1 each MISCELLANE DAILY PRN; Protocol PRN Reason: Per Protocol Miscellaneous Information (Potassium Per Protocol) 1 each MISCELLANE DAILY PRN; Protocol PRN Reason: Per Protocol Miscellaneous Information (Vancomycin Trough Due) 0 each MISCELLANE DIRECTED ONE Stop: 02/20/19 20:01 Mupirocin (Bactroban Oint) 1 applic TOPICAL TID [facility] Last Admin: 02/20/19 14:56 Dose: 1 applic Documented by: Pantoprazole Sodium (Protonix) 40 mg PO AC-BID [facility] Last Admin: 02/20/19 07:14 Dose: 40 mg Documented by: Silver Sulfadiazine (Silvadene Cream) 1 applic TOPICAL DAILY [facility] Last Admin: 02/20/19 15:10 Dose: 1 applic Documented by: Home Medications Medication Instructions Recorded Confirmed Type Allopurinol [Zyloprim] 300 mg PO DAILY 02/19/19 02/19/19 History Folic Acid 1 mg PO DAILY 02/19/19 02/19/19 History Furosemide [Lasix] 20 mg PO DAILY 02/19/19 02/19/19 History Metoprolol Tartrate [Lopressor] 25 mg PO BID 02/19/19 02/19/19 History Omeprazole [PriLOSEC] 20 mg PO BID 02/19/19 02/19/19 History Allergies Allergy/AdvReac Type Severity Reaction Status Date / Time latex Allergy Rash/Hives Verified 02/19/19 11:00 ragweed pollen Allergy Unknown Verified 02/19/19 11:00 Physical Exam Vitals: Vital Signs Temp Pulse Pulse Resp BP Pulse Ox 02/20/19 16:00 89 18 02/20/19 13:49 97.4 F L 89 18 140/78 96 05/18/19 12:51 80 02/20/19 12:40 76 02/20/19 05:24 98.2 F 87 20 118/59 96 02/19/19 20:38 97.7 F 85 20 121/73 96 Intake and Output 02/20/19 02/20/19 02/20/19 06:59 14:59 22:59 Intake Total 240 3450 Balance 240 3450 Intake: Intake, IV Titration 1900 Amount Calcium Gluconate 2 gm In 100 Sodium Chloride 0.9% 100 ml @ 100 mls/hr IVPB ONCE ONE Rx#:[id number] Cefepime 2 gm In Sodium 100 Chloride 0.9% 100 ml @ 200 mls/hr IVPB Q8HR [facility] Rx#:[id number] Sodium Chloride 0.9% 1, 1200 000 ml @ 150 mls/hr IV . Q6H40M [facility] Rx#:[id number] Vancomycin 2,000 mg In 500 Sodium Chloride 0.9% 500 ml 500 ml @ 167 mls/hr IVPB Q8H [facility] Rx#: [id number] Oral 240 1550 Other: Voiding Method Toilet Toilet # Voids 1 4 4 # Bowel Movements 2 2 HEENT: Anicteric, conjunctiva are pink and moist, nasal or oral mucosa are without lesion. The neck is supple without lymphadenopathy or thyromegaly. No oral thrush is noted. Lungs: good bilateral air entry, there are no significant crackles or wheezes, no bronchial sounds or egophony. Heart: Regular rate and rhythm with an audible S1-S2, no S3 or S4 noted. No significant murmur click or rub noted. Abdomen: Positive bowel sounds, soft and nontender, there is no palpable masses or organomegaly. Abdomen is without guarding or rebound. Extremities:Upper extremities reveal evidence of equal pulses, no lesions are seen, no petechiae or telangiectasia. The lower extremities Capillary refill was brisk.Reveal evidence of some bilateral lower extremity edema there is evidence of erythema that is present from the dorsum of the foot to just below the knee. It is not tender and appears to be somewhat petechial in nature Skin: eevidence of the extensive area of erythema on the right anterior chest wall that initiates just below his palpable [id number] that goes to the midclavicular line to the mid axillary line,The site is quite indurated but not very tender. There is erythema but there is not open ulceration at this time. He's had no drainage that he can recall as of the last day. The port itself is not tender. Neuro:Awake and alert, oriented to person place and time. No gross focal sensory motor deficits noted. Musculoskeletal: Patient is ambulatory No acute joint effusions are noted. Lymph: No cervical, supraclavicular, axillary, epitrochlear, or inguinal lymphadenopathy was noted. Results CBC & Chem 7: 02/20/19 07:30 02/20/19 07:30 Labs: Abnormal Lab Results - Last 24 Hours (Table) 02/20/19 02/20/19 Range/Units 07:30 07:30 WBC 1.5 L (3.8-10.6) k/uL RBC 2.69 L (4.30-5.90) m/uL Hgb 7.2 L (13.0-17.5) gm/dL Hct 23.6 L (39.0-53.0) % MCHC 30.4 L (31.0-37.0) g/dL RDW 20.3 H (11.5-15.5) % Neutrophils # (Manual) 0.30 L* (1.3-7.7) k/uL Lymphocytes # (Manual) 0.69 L (1.0-4.8) k/uL Potassium 3.3 L (3.5-5.1) mmol/L Chloride 112 H (98-107) mmol/L Carbon Dioxide 21 L (22-30) mmol/L BUN 7 L (9-20) mg/dL Uric Acid 2.3 L (3.5-8.5) mg/dL Calcium 5.9 L* (8.4-10.2) mg/dL Phosphorus 2.3 L (2.5-4.5) mg/dL Magnesium 1.4 L (1.6-2.3) mg/dL Microbiology - Last 24 Hours (Table) 02/19/19 12:13 Blood Culture - Preliminary Blood No Growth after 24 hours 02/19/19 12:13 Urine Culture - Preliminary Urine,Voided Laboratory Results WBC 1.5 k/uL (3.8-10.6) L 02/20/19 07:30 RBC 2.69 m/uL (4.30-5.90) L 05/18/19 07:30 Hgb 7.2 gm/dL (13.0-17.5) L 02/20/19 07:30 Hct 23.6 % (39.0-53.0) L 02/20/19 07:30 MCV 87.7 fL (80.0-100.0) 02/20/19 07:30 MCH 26.6 pg (25.0-35.0) 02/20/19 07:30 MCHC 30.4 g/dL (31.0-37.0) L 02/20/19 07:30 RDW 20.3 % (11.5-15.5) H 02/20/19 07:30 Plt Count 180 k/uL (150-450) 02/20/19 07:30 Neutrophils % (Manual) 19 % 02/20/19 07:30 Band Neutrophils % 2 % 02/20/19 07:30 Lymphocytes % (Manual) 46 % 02/20/19 07:30 Monocytes % (Manual) 28 % 02/20/19 07:30 Eosinophils % (Manual) 5 % 02/20/19 07:30 Metamyelocytes % 1 % 02/19/19 12:13 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 02/19/19 12:13 Neutrophils # (Manual) 0.30 k/uL (1.3-7.7) L* 02/20/19 07:30 Lymphocytes # (Manual) 0.69 k/uL (1.0-4.8) L 02/20/19 07:30 Monocytes # (Manual) 0.42 k/uL (0-1.0) 02/20/19 07:30 Eosinophils # (Manual) 0.08 k/uL (0-0.7) 02/20/19 07:30 Metamyelocytes # (Man) 0.01 k/uL (0) H 02/19/19 12:13 Nucleated RBCs 0 /100 WBC (0-0) 02/20/19 07:30 Manual Slide Review Performed 02/20/19 07:30 Hypochromasia Moderate 02/20/19 07:30 Poikilocytosis Moderate 02/20/19 07:30 Anisocytosis Moderate 02/20/19 07:30 PT 11.7 sec (9.0-12.0) 02/19/19 12:13 INR 1.1 (<1.2) 02/19/19 12:13 APTT 28.1 sec (22.0-30.0) 02/19/19 12:13 Sodium 139 mmol/L (137-145) 02/20/19 07:30 Potassium 3.3 mmol/L (3.5-5.1) L 02/20/19 07:30 Chloride 112 mmol/L (98-107) H 02/20/19 07:30 Carbon Dioxide 21 mmol/L (22-30) L 02/20/19 07:30 Anion Gap 6 mmol/L 02/20/19 07:30 BUN 7 mg/dL (9-20) L 02/20/19 07:30 Creatinine 0.67 mg/dL (0.66-1.25) 02/20/19 07:30 Est GFR (CKD-EPI)AfAm >90 (>60 ml/min/1.73 sqM) 02/20/19 07:30 Est GFR (CKD-EPI)NonAf >90 (>60 ml/min/1.73 sqM) 02/20/19 07:30 Glucose 95 mg/dL (74-99) 02/20/19 07:30 Plasma Lactic Acid Marcos 1.4 mmol/L (0.7-2.0) 02/19/19 12:13 Uric Acid 2.3 mg/dL (3.5-8.5) L 02/20/19 07:30 Calcium 5.9 mg/dL (8.4-10.2) L* 02/20/19 07:30 Phosphorus 2.3 mg/dL (2.5-4.5) L 02/20/19 07:30 Magnesium 1.4 mg/dL (1.6-2.3) L 02/20/19 07:30 Total Bilirubin 0.5 mg/dL (0.2-1.3) 02/19/19 12:13 AST 22 U/L (17-59) 02/19/19 12:13 ALT 41 U/L (21-72) 02/19/19 12:13 Alkaline Phosphatase 178 U/L (38-126) H 02/19/19 12:13 Troponin I 0.019 ng/mL (0.000-0.034) 02/19/19 12:13 NT-Pro-B Natriuret Pep 2370 pg/mL 02/19/19 12:13 Total Protein 4.5 g/dL (6.3-8.2) L 02/19/19 12:13 Albumin 2.6 g/dL (3.5-5.0) L 02/19/19 12:13 Urine Color Light Yellow 02/19/19 12:13 Urine Appearance Clear (Clear) 02/19/19 12:13 Urine pH 6.0 (5.0-8.0) 02/19/19 12:13 Ur Specific [place] 1.008 (1.001-1.035) 02/19/19 12:13 Urine Protein Negative (Negative) 02/19/19 12:13 Urine Glucose (UA) Negative (Negative) 02/19/19 12:13 Urine Ketones Negative (Negative) 02/19/19 12:13 Urine Blood Negative (Negative) 02/19/19 12:13 Urine Nitrite Negative (Negative) 02/19/19 12:13 Urine Bilirubin Negative (Negative) 02/19/19 12:13 Urine Urobilinogen <2.0 mg/dL (<2.0) 02/19/19 12:13 Ur Leukocyte Esterase Negative (Negative) 02/19/19 12:13 C. difficile (EIA) Intrp Negative (Negative) 02/20/19 10:00 Microbiology 02/19/19 12:13 Blood Blood Culture - Preliminary No Growth after 24 hours 02/19/19 12:13 Urine,Voided Urine Culture - Preliminary Assessment and Plan (1) Cellulitis of chest wall Narrative/Plan: 54-year-old male presents to Hospital because of increasing pain and discomfort in the right anterior chest wall as well as fever. As noted the patient has a known history of recently diagnosed T-cell non-Hodgkin lymphoma and received his first course of chemotherapy and is now having difficulties with febrile neutropenia. Is also related that at the other facility he had extravasation of chemotherapy resulting in the injury to the right anterior chest wall. At this point in time there is no significant open ulceration. There is no necrosis, but there is some erythema. With the febrile neutropenia antibiotic therapy is initiated with cephepime andvancomycin pending further culture data. Local wound care to the site can be done with mupirocin. The bilateral lower extremities Silvadene and Jurgen wrap is been requested given the edema and changes that are noted in that site. He's being followed by hematology oncology and is receiving growth factors. Current Visit: Yes Status: Acute Code(s): L03.313 - CELLULITIS OF CHEST WALL SNOMED Code(s): 87759703 (2) Neutropenic fever Current Visit: Yes Status: Acute Code(s): D70.9 - NEUTROPENIA, UNSPECIFIED; R50.81 - FEVER PRESENTING WITH CONDITIONS CLASSIFIED ELSEWHERE SNOMED Code(s): 185328626 (3) Non-Hodgkin's lymphoma in adult Current Visit: Yes Status: Acute Code(s): C85.90 - NON-HODGKIN LYMPHOMA, UNSPECIFIED, UNSPECIFIED SITE SNOMED Code(s): 711322061
--- NOTE | 2019-02-20 19:15 | PN ---
PROGRESS NOTE SUBJECTIVE: 54-year-old white male with sepsis cellulitis of the lower legs as well as right upper chest, status post chemotherapy-induced extrusion into the skin with extreme redness. PICC line remains on his left arm. Not sure we are going to culture that at this time. His leukopenia is improving since yesterday. His lab show white count from 100 up to 300. Remains on broad-spectrum antibiotics. CARDIOVASCULAR: S1, S2. LUNGS clear. GI soft. ASSESSMENT: 1. Sepsis. 2. Non-Hodgkin's lymphoma. 3. Cellulitis of the legs and the right upper chest. 4. Pancytopenia, significant nature. Continue current treatments. Await for cultures. Continue broad-spectrum antibiotics. Await for Infectious Disease recommendations. I talked to Dr. Zafar who says the port in the right chest is still good in the right position but we should continue to use the PICC line unless infectious disease doctor wants it removed. MMODL / IJN: [id number] /
[2019-02-20] MEDS ORDERED: VANCOMYCIN TROUGH DUE 1 EACH MISC MISCELLANE ONE (20:00)
[2019-02-20] MEDS: FILGRASTIM-SNDZ 480 MCG/0.8 ML SYRINGE SQ SCH (20:41)
[2019-02-21] MEDS: SODIUM CHLORIDE 0.9% 1,000 ML IV SCH ×2 (04:49→09:04)
[2019-02-21] MEDS: PANTOPRAZOLE 40 MG TABLET PO SCH ×2 (07:02→16:34)
[2019-02-21] MEDS: ALLOPURINOL 300 MG TAB PO SCH (07:02)
[2019-02-21] MEDS: METOPROLOL TARTRATE 25 MG TAB PO SCH ×2 (07:03→20:30)
[2019-02-21] MEDS: CEFEPIME 2 GM in SODIUM CHLORIDE 0.9% 100 ML IVPB SCH ×3 (07:03→23:59)
[2019-02-21] MEDS: FOLIC ACID 1 MG TAB PO SCH (07:03)
[2019-02-21] MEDS: MUPIROCIN 2% OINT 22 GM TUBE TOPICAL SCH ×3 (07:03→20:31)
[2019-02-21 07:59] LABS: Anisocytosis Moderate; HCT 24.8 % (39.0-53.0); HGB 7.3 gm/dL (13.0-17.5); Hypochromasia Marked; MCH 26.2 pg (25.0-35.0); MCHC 29.6 g/dL (31.0-37.0); MCV 88.7 fL (80.0-100.0); Mean Platelet Volume 7.1; Platelet Count 267 k/uL (150-450); Poikilocytosis Moderate; RDW 20.6 % (11.5-15.5); WBC 2.7 k/uL (3.8-10.6)
[2019-02-21 08:26] LABS: Anion Gap 5 mmol/L; Blood Urea Nitrogen 5 mg/dL (9-20); Carbon Dioxide 20 mmol/L (22-30); Chloride 116 mmol/L (98-107); Glucose 80 mg/dL (74-99); Phosphorus 2.2 mg/dL (2.5-4.5); Potassium 3.6 mmol/L (3.5-5.1); Sodium 141 mmol/L (137-145); Uric Acid 2.5 mg/dL (3.5-8.5)
[2019-02-21 08:40] LABS: Calcium 6.3 mg/dL (8.4-10.2)
[2019-02-21] MEDS: LOPERAMIDE 2 MG CAP PO PRN ×2 (09:04→21:51)
[2019-02-21] MEDS: IPRATROPIUM-ALBUTEROL 3 ML NEB INHALATION PRN ×2 (09:17→20:09)
[2019-02-21 10:16] LABS: Band Neutrophils % 4 %; Lymphocytes # (M) 1.38 k/uL (1.0-4.8); Monocytes # (M) 0.38 k/uL (0-1.0); Neutrophils % (M) 31 %; Nucleated Red Blood Cells 0 /100 WBC (0-0); Total Cells Counted 100
[2019-02-21 10:17] LABS: Polychromasia Present
[2019-02-21] MEDS ORDERED: CALCIUM GLUCONATE 2 GM in SODIUM CHLORIDE 0.9% 100 ML IVPB ONE (10:23)
[2019-02-21] MEDS: VANCOMYCIN 2,000 MG in SODIUM CHLORIDE 0.9% 500 ML 500 ML IVPB SCH ×2 (10:25→20:30)
[2019-02-21] MEDS: HYDROcodone/APAP 5-325MG 1 EACH TAB PO PRN ×2 (12:40→20:04)
--- NOTE | 2019-02-21 15:31 | P.PN ---
Subjective Progress Note Date: 02/21/19 The patient feels somewhat better. There is still significant generalized weakness. He continues to have loose stools though the starting slowdown with initiation of Imodium. He denies any new complaints related to the right chest wall. No nausea, or vomiting. Fever has not recurred since admission Objective - Vital Signs Vital signs: Vital Signs Temp 97.8 F 02/21/19 13:10 Pulse 89 02/21/19 14:34 Resp 18 02/21/19 14:34 BP 120/80 02/21/19 13:10 Pulse Ox 96 02/21/19 13:10 Intake & Output 02/20/19 02/21/19 02/21/19 18:59 06:59 18:59 Intake Total 3450 830 3550 Balance 3450 830 3550 Intake: Intake, IV Titration 1900 1300 Amount Calcium Gluconate 2 gm In 100 Sodium Chloride 0.9% 100 ml @ 100 mls/hr IVPB ONCE ONE Rx#:[id number] Calcium Gluconate 2 gm In 100 Sodium Chloride 0.9% 100 ml @ 100 mls/hr IVPB ONCE ONE Rx#:[id number] Cefepime 2 gm In Sodium 100 100 Chloride 0.9% 100 ml @ 200 mls/hr IVPB Q8HR [facility] Rx#:[id number] Sodium Chloride 0.9% 1, 1200 600 000 ml @ 150 mls/hr IV . Q6H40M [facility] Rx#:[id number] Vancomycin 2,000 mg In 500 Sodium Chloride 0.9% 500 ml 500 ml @ 167 mls/hr IVPB Q12H [facility] Rx#: [id number] Vancomycin 2,000 mg In 500 Sodium Chloride 0.9% 500 ml 500 ml @ 167 mls/hr IVPB Q8H [facility] Rx#: [id number] Oral [id number] [id number] Other: Voiding Method Toilet Toilet Toilet # Voids 4 2 4 # Bowel Movements 2 3 - Constitutional General appearance: Present: no acute distress - EENT Eyes: Present: EOMI ENT: Present: hearing grossly normal, normal oropharynx - Respiratory Respiratory: bilateral: CTA - Cardiovascular Rhythm: regular Heart sounds: normal: S1, S2 - Gastrointestinal General gastrointestinal: Present: normal bowel sounds, soft - Integumentary Integumentary Comment(s): Right chest wall cellulitis overall stable, with some increased scabbing in the previously noted areas. No fluctuation or crepitus by exam Integumentary: Present: calor, cellulitis - Musculoskeletal Musculoskeletal: Present: generalized weakness, strength equal bilaterally - Psychiatric Psychiatric: Present: A&O x's 3, appropriate affect - Labs CBC & Chem 7: 02/21/19 07:43 02/21/19 07:43 Labs: Abnormal Lab Results - Last 24 Hours (Table) 02/21/19 02/21/19 Range/Units 07:43 07:43 WBC 2.7 L (3.8-10.6) k/uL RBC 2.80 L (4.30-5.90) m/uL Hgb 7.3 L (13.0-17.5) gm/dL Hct 24.8 L (39.0-53.0) % MCHC 29.6 L (31.0-37.0) g/dL RDW 20.6 H (11.5-15.5) % Neutrophils # (Manual) 0.90 L (1.3-7.7) k/uL Chloride 116 H (98-107) mmol/L Carbon Dioxide 20 L (22-30) mmol/L BUN 5 L (9-20) mg/dL Uric Acid 2.5 L (3.5-8.5) mg/dL Calcium 6.3 L* (8.4-10.2) mg/dL Phosphorus 2.2 L (2.5-4.5) mg/dL Microbiology - Last 24 Hours (Table) 02/19/19 12:13 Blood Culture - Preliminary Blood No Growth after 48 hours 02/19/19 12:13 Urine Culture - Final Urine,Voided Assessment and Plan (1) Neutropenic fever Narrative/Plan: Fever has resolved. Neutropenia continues to improve with growth factors. ANC is almost 1000 today. Continue growth factor still neutropenia resolves. Antibiotics per ID. Cultures remained negative Current Visit: Yes Status: Acute Code(s): D70.9 - NEUTROPENIA, UNSPECIFIED; R50.81 - FEVER PRESENTING WITH CONDITIONS CLASSIFIED ELSEWHERE SNOMED Code(s): 599021312 (2) Cellulitis of chest wall Narrative/Plan: On examination this appears to be show no progression. There is some increase in the scabbing in the previously affected areas. Continue to monitor Current Visit: Yes Status: Acute Code(s): L03.313 - CELLULITIS OF CHEST WALL SNOMED Code(s): 76588871 (3) Pancytopenia Narrative/Plan: Platelets are normalized. Hemoglobin remains stable in the 7-8 range. WBC is improving with growth factors. Continue to monitor with transfusion as needed to keep hemoglobin greater than 7 Current Visit: Yes Status: Acute Code(s): D61.818 - OTHER PANCYTOPENIA SNOMED Code(s): 367593325 (4) Lymphoma Current Visit: Yes Status: Acute Code(s): C85.90 - NON-HODGKIN LYMPHOMA, UNSPECIFIED, UNSPECIFIED SITE SNOMED Code(s): 267614707
[2019-02-21] MEDS: FILGRASTIM-SNDZ 480 MCG/0.8 ML SYRINGE SQ SCH (20:30)
--- NOTE | 2019-02-21 22:56 | PN ---
PROGRESS NOTE SUBJECTIVE: 54-year-old white male with sepsis, cellulitis, chemotherapy extrusion under the right chest, diastolic CHF. Remains on neutropenic febrile antibiotics vancomycin, cefepime. Cardiovascular S1-S2. Lungs clear. Hematology 2 to 3+ edema. GI is distended. ASSESSMENT: 1. Neutropenic fever. 2. Sepsis. 3. Cellulitis of the legs. 4. Cellulitis, right chest. Continue cefepime, vancomycin, antibiotic cream. Follow up in the next 24-48 hours. MMODL / IJN: [id number] /
[2019-02-22] MEDS: SODIUM CHLORIDE 0.9% 1,000 ML IV SCH ×5 (04:22→20:35)
[2019-02-22] MEDS: METOPROLOL TARTRATE 25 MG TAB PO SCH ×2 (07:51→22:07)
[2019-02-22] MEDS: ALLOPURINOL 300 MG TAB PO SCH (07:51)
[2019-02-22] MEDS: PANTOPRAZOLE 40 MG TABLET PO SCH ×2 (07:51→17:44)
[2019-02-22] MEDS: FOLIC ACID 1 MG TAB PO SCH (07:51)
[2019-02-22] MEDS: CEFEPIME 2 GM in SODIUM CHLORIDE 0.9% 100 ML IVPB SCH ×2 (07:52→15:40)
[2019-02-22] MEDS: MUPIROCIN 2% OINT 22 GM TUBE TOPICAL SCH ×3 (07:52→22:08)
[2019-02-22] MEDS: IPRATROPIUM-ALBUTEROL 3 ML NEB INHALATION PRN ×2 (08:01→19:21)
[2019-02-22] MEDS: VANCOMYCIN 2,000 MG in SODIUM CHLORIDE 0.9% 500 ML 500 ML IVPB SCH ×2 (09:03→22:07)
[2019-02-22 09:49] LABS: Anisocytosis Moderate; HCT 25.6 % (39.0-53.0); HGB 7.8 gm/dL (13.0-17.5); Hypochromasia Marked; MCH 26.9 pg (25.0-35.0); MCHC 30.5 g/dL (31.0-37.0); MCV 88.3 fL (80.0-100.0); Mean Platelet Volume 6.9; Platelet Count 382 k/uL (150-450); Poikilocytosis Moderate; RDW 20.9 % (11.5-15.5)
[2019-02-22 10:26] LABS: Anion Gap 9 mmol/L; Blood Urea Nitrogen 4 mg/dL (9-20); Carbon Dioxide 19 mmol/L (22-30); Chloride 114 mmol/L (98-107); Glucose 90 mg/dL (74-99); Phosphorus 2.2 mg/dL (2.5-4.5); Potassium 3.3 mmol/L (3.5-5.1); Sodium 142 mmol/L (137-145)
[2019-02-22 10:58] LABS: Band Neutrophils % 3 %; Eosinophils # (M) 0.18 k/uL (0-0.7); Lymphocytes # (M) 2.83 k/uL (1.0-4.8); Metamyelocytes # (M) 0.06 k/uL (0); Metamyelocytes % 1 %; Monocytes # (M) 0.65 k/uL (0-1.0); Neutrophils % (M) 35 %; Nucleated Red Blood Cells 1 /100 WBC (0-0); Total Cells Counted 200; WBC 5.9 k/uL (3.8-10.6)
[2019-02-22 10:59] LABS: Ovalocytes Present; Tear Drop Cells Present
--- NOTE | 2019-02-22 14:26 | P.PN ---
Subjective Progress Note Date: 02/22/19 Principal diagnosis: Cellulitis, neutropenic fever In follow-up today patient is doing much better. The right chest wall is not as painful, he has full range of motion of his right upper extremity, he did get into the shower today, no fevers, nausea, vomiting, cough, difficulty breathing, dysuria, hematuria, patient does have complaints of diarrhea, no black or bloody stool, he is independently ambulatory Objective - Vital Signs Vital signs: Vital Signs Temp 97.5 F L 02/22/19 12:23 Pulse 89 02/22/19 12:23 Resp 17 02/22/19 12:23 BP 121/84 02/22/19 12:23 Pulse Ox 96 02/22/19 12:23 Intake & Output 02/21/19 02/22/19 02/22/19 18:59 06:59 18:59 Intake Total 3550 Balance 3550 Intake: Intake, IV Titration 1300 Amount Calcium Gluconate 2 gm In 100 Sodium Chloride 0.9% 100 ml @ 100 mls/hr IVPB ONCE ONE Rx#:[id number] Cefepime 2 gm In Sodium 100 Chloride 0.9% 100 ml @ 200 mls/hr IVPB Q8HR [facility] Rx#:[id number] Sodium Chloride 0.9% 1, 600 000 ml @ 150 mls/hr IV . Q6H40M [facility] Rx#:[id number] Vancomycin 2,000 mg In 500 Sodium Chloride 0.9% 500 ml 500 ml @ 167 mls/hr IVPB Q12H [facility] Rx#: [id number] Oral 2250 Other: Voiding Method Toilet Toilet Toilet # Voids 4 2 # Bowel Movements 3 1 - Constitutional General appearance: Present: cooperative, no acute distress, obese - EENT Eyes: Present: anicteric sclerae, EOMI ENT: Present: normal oropharynx - Respiratory Respiratory: bilateral: CTA - Cardiovascular Rhythm: regular Heart sounds: normal: S1, S2 Abnormal Heart Sounds: Absent: systolic murmur, diastolic murmur, rub, S3 Gallop, S4 Gallop, click, other - Gastrointestinal General gastrointestinal: Present: distended, normal bowel sounds, soft - Integumentary Integumentary Comment(s): Right chest wall has a 6 inch area in the largest dimension of induration, firm underneath, no subcutaneous emphysema palpated, there is also a smaller area about 4 inches in greatest dimension lateral to the breast, inferior to the axilla. Both areas have scabbing associated with them, no active drainage Integumentary: Present: normal - Neurologic Neurologic: Present: CNII-XII intact - Musculoskeletal Musculoskeletal: Present: strength equal bilaterally - Psychiatric Psychiatric: Present: A&O x's 3, appropriate affect - Labs CBC & Chem 7: 02/22/19 09:07 02/22/19 09:07 Labs: Abnormal Lab Results - Last 24 Hours (Table) 02/22/19 02/22/19 Range/Units 09:07 09:07 RBC 2.90 L (4.30-5.90) m/uL Hgb 7.8 L (13.0-17.5) gm/dL Hct 25.6 L (39.0-53.0) % MCHC 30.5 L (31.0-37.0) g/dL RDW 20.9 H (11.5-15.5) % Metamyelocytes # (Man) 0.06 H (0) k/uL Nucleated RBCs 1 H (0-0) /100 WBC Potassium 3.3 L (3.5-5.1) mmol/L Chloride 114 H (98-107) mmol/L Carbon Dioxide 19 L (22-30) mmol/L BUN 4 L (9-20) mg/dL Uric Acid 3.0 L (3.5-8.5) mg/dL Calcium 7.0 L (8.4-10.2) mg/dL Phosphorus 2.2 L (2.5-4.5) mg/dL Microbiology - Last 24 Hours (Table) 02/19/19 12:13 Blood Culture - Preliminary Blood No Growth after 48 hours - Imaging and Cardiology CT scan - chest: report reviewed Assessment and Plan (1) Neutropenic fever Narrative/Plan: Patient is being treated with antibiotics, palacios cultures so far are negative. Patient's white blood cell count is up to 5.9, absolute neutrophil count today is 2.2. No fever since admission. Current Visit: Yes Status: Acute Priority: High Code(s): D70.9 - NEUTROPENIA, UNSPECIFIED; R50.81 - FEVER PRESENTING WITH CONDITIONS CLASSIFIED ELSEWHERE SNOMED Code(s): 998698410 (2) Bicytopenia Narrative/Plan: WBC and ANC have recovered Anemia is stable slightly improved Platelets are within normal defined limits. No acute intervention. Current Visit: Yes Status: Acute Priority: High Code(s): D75.89 - OTHER SPECIFIED DISEASES OF BLOOD AND BLOOD-FORMING ORGANS SNOMED Code(s): 016462314 (3) Bilateral lower leg cellulitis Narrative/Plan: Continue treatment of cellulitis under the direction of Infectious Disease Current Visit: Yes Status: Acute Priority: High Code(s): L03.116 - C ELLULITIS OF LEFT LOWER LIMB; L03.115 - CELLULITIS OF RIGHT LOWER LIMB SNOMED Code(s): 826344104 (4) Cellulitis of chest wall Narrative/Plan: Improving. Continue to follow recommendations of Infectious Disease. Topical treatment as prescribed. Current Visit: Yes Status: Acute Priority: High Code(s): L03.313 - CELLULITIS OF CHEST WALL SNOMED Code(s): 19987640 (5) Non-Hodgkin's lymphoma in adult Narrative/Plan: Patient is status post first cycle of EPOCH. He is due for 2nd cycle. Patient was very surprised that he needed more treatment. I explained to patient that 6 cycles is very common for treatment of lymphoma. We reviewed how he is feeling after treatment. Patient's presenting symptoms- shortness of breath, fatigue, general malaise-he does note are much better. Checked of the patient's imaging is improved as well, smaller adenopathy. We reviewed that each treatment will continue to work on his lymphoma with the intention being relieve symptoms and possibly putting him into some type of remission. I told patient that we would hold off on his next cycle until he has been treated adequately for his 2 areas of cellulitis. I told him to anticipate his next cycle probably starting next week. He did verbalize understanding. All of his questions were answered to the best of my ability. Current Visit: Yes Status: Acute Priority: High Code(s): C85.90 - NON- HODGKIN LYMPHOMA, UNSPECIFIED, UNSPECIFIED SITE SNOMED Code(s): 868653024 (6) Sepsis Current Visit: Yes Status: Acute Priority: High Code(s): A41.9 - SEPSIS, UNSPECIFIED ORGANISM SNOMED Code(s): 87738971
--- NOTE | 2019-02-22 15:14 | P.PN ---
Subjective Progress Note Date: 02/22/19 This is a 54-year-old gentleman admitted with sepsis, cellulitis, chemotherapy extravasation of the right anterior chest, diastolic CHF, febrile neutropenia and multiple other medical issues. Maintained on vancomycin and cefepime with significant clinical improvement. Afebrile, WBC improving, up to 5.9. Urine cultures negative. Reports loose stools. Denies chest pain, palpitations or shortness of breath. Objective - Vital Signs Vital signs: Vital Signs Temp 98.1 F 02/22/19 05:18 Pulse 96 02/22/19 08:16 Resp 18 02/22/19 05:18 BP 123/72 02/22/19 05:18 Pulse Ox 94 L 02/22/19 05:18 Intake & Output 02/21/19 02/22/19 02/22/19 18:59 06:59 18:59 Intake Total 3550 Balance 3550 Intake: Intake, IV Titration 1300 Amount Calcium Gluconate 2 gm In 100 Sodium Chloride 0.9% 100 ml @ 100 mls/hr IVPB ONCE ONE Rx#:[id number] Cefepime 2 gm In Sodium 100 Chloride 0.9% 100 ml @ 200 mls/hr IVPB Q8HR [facility] Rx#:[id number] Sodium Chloride 0.9% 1, 600 000 ml @ 150 mls/hr IV . Q6H40M [facility] Rx#:[id number] Vancomycin 2,000 mg In 500 Sodium Chloride 0.9% 500 ml 500 ml @ 167 mls/hr IVPB Q12H [facility] Rx#: [id number] Oral 2250 Other: Voiding Method Toilet Toilet Toilet # Voids 4 2 # Bowel Movements 3 1 - Exam PHYSICAL EXAM: VITAL SIGNS: As above GENERAL: Sitting up in bed, no acute distress HEENT: Conjunctivae normal. eyes normal. Oral mucosa moist NECK: No JVD. No thyroid enlargement. No LNs CARDIOVASCULAR: S1, S2 regular. No murmur, no rubs, no gallops RESPIRATION: Breath sounds diminished in the bases. No rhonchi or crackles. No bronchial breathing. ABDOMEN: Soft, nontender . No guarding. no masses palpable. Bowel sounds heard. LEGS: No edema. no swelling PSYCHIATRY: Alert and oriented -3, mood and affect normal. NERVOUS SYSTEM: Cranial N 2-12 grossly normal. Moves all 4 limbs. Diffuse weakness No focal deficits. Skin: Right anterior and lateral chest wall firmness/edema improving with non draining scabs. Refer to chart documentation for sizing. - Labs CBC & Chem 7: 02/22/19 09:07 02/22/19 09:07 Labs: Abnormal Lab Results - Last 24 Hours (Table) 02/21/19 02/21/19 Range/Units 07:43 07:43 Neutrophils # (Manual) 0.90 L (1.3-7.7) k/uL Chloride 116 H (98-107) mmol/L Carbon Dioxide 20 L (22-30) mmol/L BUN 5 L (9-20) mg/dL Uric Acid 2.5 L (3.5-8.5) mg/dL Calcium 6.3 L* (8.4-10.2) mg/dL Phosphorus 2.2 L (2.5-4.5) mg/dL Microbiology - Last 24 Hours (Table) 02/19/19 12:13 Blood Culture - Preliminary Blood No Growth after 48 hours Assessment and Plan Assessment: -Neutropenic fever -Sepsis secondary to cellulitis of the right chest and legs -Bilateral lower extremity cellulitis, improving -Right anterior chest cellulitis secondary to chemo extravasation -Non-Hodgkin's lymphoma Plan: Continue on current medication regime ,monitoring and symptomatic treatment. IV Antibiotics as per infectious disease. Rule out C. difficile, recheck ordered. Increase ambulation as tolerated. Discharge planning in progress pending ID clearance. The impression and plan of care has been dictated as directed. : I performed a history and examination of this patient, discussed the same with the dictator. I agree with the dictator's note ,documented as a scribe. Any additional findings or plans will be noted.
[2019-02-22] MEDS ORDERED: VANCOMYCIN TROUGH DUE 1 EACH MISC MISCELLANE ONE (21:00)
[2019-02-22] MEDS: FILGRASTIM-SNDZ 480 MCG/0.8 ML SYRINGE SQ SCH (22:07)
[2019-02-22] MEDS ORDERED: VANCOMYCIN IV PER PHARMACY 1 EACH MISC MISCELLANE PRN (22:16)
--- NOTE | 2019-02-22 22:39 | P.PN ---
Subjective Progress Note Date: 02/22/19 54-year-old male that has a very complex medical history which began in December of this year. At that point in time the patient was feeling poorly was having fevers chills in a 30 pound weight loss. He was feeling very poorly overall was hospitalized at a local facility and then transferred to [facility]. 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 The patient has been initiated to chemotherapy. There was great difficulties because of significant psychosocial problems, eventually the family was able to come together and provide him with residents and transportation for his interventional chemotherapy. It is related the patient was cared for outside facility. Chemotherapy was applied to the [facility] for there was extravasation of the chemotherapy and he was chest wall. Having some ongoing difficulties since. Now presents feeling poorly with fever and was found evidence of significant neutropenia after his chemotherapy. Because of the abnormality of the chest wall and fever the consult was requested. The patient relates that he does feel somewhat poorly. His fever though seems to be improving since coming to hospital. He has tenderness to the chest wall but does not relate that there is been much drainage in it has not worsened recently. 02/22/2019 the patient is feeling considerably better today. The discomfort to the right anterior chest wall is much improved. The site is also considerably improved. He is denying fevers or chills. He has no other new acute complaints at this time. Objective - Vital Signs Vital signs: Vital Signs Temp 97.9 F 02/22/19 21:00 Pulse 98 02/22/19 21:00 Resp 20 02/22/19 21:00 BP 119/67 02/22/19 21:00 Pulse Ox 95 02/22/19 21:00 Intake & Output 02/22/19 02/22/19 02/23/19 06:59 18:59 06:59 Intake Total 2400 Balance 2400 Intake: Intake, IV Titration 1200 Amount Cefepime 2 gm In Sodium 100 Chloride 0.9% 100 ml @ 200 mls/hr IVPB Q8HR [facility] Rx#:[id number] Sodium Chloride 0.9% 1, 600 000 ml @ 150 mls/hr IV . Q6H40M [facility] Rx#:[id number] Vancomycin 2,000 mg In 500 Sodium Chloride 0.9% 500 ml 500 ml @ 167 mls/hr IVPB Q12H [facility] Rx#: [id number] Oral 1200 Other: Voiding Method Toilet Toilet # Voids 2 2 1 # Bowel Movements 1 1 - Exam HEENT: Anicteric, conjunctiva are pink and moist, nasal or oral mucosa are without lesion. The neck is supple without lymphadenopathy or thyromegaly. No oral thrush is noted. Lungs: good bilateral air entry, there are no significant crackles or wheezes, no bronchial sounds or egophony. Heart: Regular rate and rhythm with an audible S1-S2, no S3 or S4 noted. No significant murmur click or rub noted. Abdomen: Positive bowel sounds, soft and nontender, there is no palpable masses or organomegaly. Abdomen is without guarding or rebound. Extremities:Upper extremities reveal evidence of equal pulses, no lesions are seen, no petechiae or telangiectasia. The lower extremities Capillary refill was brisk.Reveal evidence of some bilateral lower extremity edema there is evidence of erythema that is present from the dorsum of the foot to just below the knee. It is not tender and appears to be somewhat petechial in nature Skin: evidence of the extensive area of erythema on the right anterior chest wall that initiates just below his palpable [id number] that goes to the midclavicular line to the mid axillary line,there is distinct improvement today the erythema has improved there is areas of clearing. There are 2 areas on the chest wall where there is still some ulceration but this is improved. Twith a t opical antibiotic and feels no significant drainage He's had no drainage that he can recall as of the last day. The port itself is not tender. Neuro:Awake and alert, oriented to person place and time. No gross focal sensory motor deficits noted. Musculoskeletal: Patient is ambulatory No acute joint effusions are noted. Lymph: No cervical, supraclavicular, axillary, epitrochlear, or inguinal lymph adenopathy was noted. - Labs CBC & Chem 7: 02/22/19 09:07 02/22/19 09:07 Labs: Abnormal Lab Results - Last 24 Hours (Table) 02/22/19 02/22/19 Range/Units 09: 09:07 RBC 2.90 L (4.30-5.90) m/uL Hgb 7.8 L (13.0-17.5) gm/dL Hct 25.6 L (39.0-53.0) % MCHC 30.5 L (31.0-37.0) g/dL RDW 20.9 H (11.5-15.5) % Metamyelocytes # (Man) 0.06 H (0) k/uL Nucleated RBCs 1 H (0-0) /100 WBC Potassium 3.3 L (3.5-5.1) mmol/L Chloride 114 H (98-107) mmol/L Carbon Dioxide 19 L (22-30) mmol/L BUN 4 L (9-20) mg/dL Uric Acid 3.0 L (3.5-8.5) mg/dL Calcium 7.0 L (8.4-10.2) mg/dL Phosphorus 2.2 L (2.5-4.5) mg/dL Microbiology - Last 24 Hours (Table) 02/19/19 12:13 Blood Culture - Preliminary Blood No Growth after 72 hours Laboratory Results WBC 5.9 k/uL (3.8-10.6) 02/22/19 09:07 RBC 2.90 m/uL (4.30-5.90) L 02/22/19 09:07 Hgb 7.8 gm/dL (13.0-17.5) L 02/22/19 09:07 Hct 25.6 % (39.0-53.0) L 02/22/19 09:07 MCV 88.3 fL (80.0-100.0) 02/22/19 09:07 MCH 26.9 pg (25.0-35.0) 02/22/19 09:07 MCHC 30.5 g/dL (31.0-37.0) L 02/22/19 09:07 RDW 20.9 % (11.5-15.5) H 02/22/19 09:07 Plt Count 382 k/uL (150-450) 02/22/19 09:07 Neutrophils % (Manual) 35 % 02/22/19 09:07 Band Neutrophils % 3 % 02/22/19 09:07 Lymphocytes % (Manual) 48 % 02/22/19 09:07 Monocytes % (Manual) 11 % 02/22/19 09:07 Eosinophils % (Manual) 3 % 02/22/19 09:07 Metamyelocytes % 1 % 02/22/19 09:07 Neutrophils # RESIDENTIAL DIRECT SUPPORT PROFESSIONAL 02/19/19 12:13 Neutrophils # (Manual) 2.20 k/uL (1.3-7.7) 02/22/19 09:07 Lymphocytes # (Manual) 2.83 k/uL (1.0-4.8) 02/22/19 09:07 Monocytes # (Manual) 0.65 k/uL (0-1.0) 02/22/19 09:07 Eosinophils # (Manual) 0.18 k/uL (0-0.7) 02/22/19 09:07 Metamyelocytes # (Man) 0.06 k/uL (0) H 02/22/19 09:07 Nucleated RBCs 1 /100 WBC (0-0) H 02/22/19 09:07 Manual Slide Review Performed 02/22/19 09:07 Polychromasia Present 02/21/19 07:43 Hypochromasia Marked 02/22/19 09:07 Poikilocytosis Moderate 02/22/19 09:07 Anisocytosis Moderate 02/22/19 09:07 Tear Drop Cells Present 02/22/19 09:07 Ovalocytes Present 02/22/19 09:07 PT 11.7 sec (9.0-12.0) 02/19/19 12:13 INR 1.1 (<1.2) 02/19/19 12:13 APTT 28.1 sec (22.0-30.0) 02/19/19 12:13 Sodium 142 mmol/L (137-145) 02/22/19 09:07 Potassium 3.3 mmol/L (3.5-5.1) L 02/22/19 09:07 Chloride 114 mmol/L (98-107) H 02/22/19 09:07 Carbon Dioxide 19 mmol/L (22-30) L 02/22/19 09:07 Anion Gap 9 mmol/L 02/22/19 09:07 BUN 4 mg/dL (9-20) L 02/22/19 09:07 Creatinine 0.79 mg/dL (0.66-1.25) 02/22/19 09:07 Est GFR (CKD-EPI)AfAm >90 (>60 ml/min/1.73 sqM) 02/22/19 09:07 Est GFR (CKD-EPI)NonAf >90 (>60 ml/min/1.73 sqM) 02/22/19 09:07 Glucose 90 mg/dL (74-99) 02/22/19 09:07 Plasma Lactic Acid Marcos 1.4 mmol/L (0.7-2.0) 02/19/19 12:13 Uric Acid 3.0 mg/dL (3.5-8.5) L 02/22/19 09:07 Calcium 7.0 mg/dL (8.4-10.2) L 02/22/19 09:07 Phosphorus 2.2 mg/dL (2.5-4.5) L 02/22/19 09:07 Magnesium 1.4 mg/dL (1.6-2.3) L 02/20/19 07:30 Total Bilirubin 0.5 mg/dL (0.2-1.3) 02/19/19 12:13 AST 22 U/L (17-59) 02/19/19 12:13 ALT 41 U/L (21-72) 02/19/19 12:13 Alkaline Phosphatase 178 U/L (38-126) H 02/19/19 12:13 Troponin I 0.019 ng/mL (0.000-0.034) 02/19/19 12:13 NT-Pro-B Natriuret Pep 2370 pg/mL 02/19/19 12:13 Total Protein 4.5 g/dL (6.3-8.2) L 02/19/19 12:13 Albumin 2.6 g/dL (3.5-5.0) L 02/19/19 12:13 Urine Color Light Yellow 02/19/19 12:13 Urine Appearance Clear (Clear) 02/19/19 12:13 Urine pH 6.0 (5.0-8.0) 02/19/19 12:13 Ur Specific [place] 1.008 (1.001-1.035) 02/19/19 12:13 Urine Protein Negative (Negative) 02/19/19 12:13 Urine Glucose (UA) Negative (Negative) 02/19/19 12:13 Urine Ketones Negative (Negative) 02/19/19 12:13 Urine Blood Negative (Negative) 02/19/19 12:13 Urine Nitrite Negative (Negative) 02/19/19 12:13 Urine Bilirubin Negative (Negative) 02/19/19 12:13 Urine Urobilinogen <2.0 mg/dL (<2.0) 02/19/19 12:13 Ur Leukocyte Esterase Negative (Negative) 02/19/19 12:13 Vancomycin Trough 24.8 ug/mL 02/22/19 20:11 Random Vancomycin 25.0 ug/mL 02/20/19 20:03 C. difficile (EIA) Intrp Negative (Negative) 02/20/19 10:00 Microbiology 02/19/19 12:13 Blood Blood Culture - Preliminary No Growth after 72 hours 02/19/19 12:13 Urine,Voided Urine Culture - Final Assessment and Plan (1) Cellulitis of chest wall Narrative/Plan: 54-year-old male presents to Hospital because of increasing pain and discomfort in the right anterior chest wall as well as fever. As noted the patient has a known history of recently diagnosed T-cell non-Hodgkin lymphoma and received his first course of chemotherapy and is now having difficulties with febrile neutropenia. Is also related that at the other facility he had extravasation of chemotherapy resulting in the injury to the right anterior chest wall. At this p oint in time there is no significant open ulceration. There is no necrosis, but there is some erythema. With the febrile neutropenia antibiotic therapy is initiated with cefepime and vancomycin pending further culture data. Local wound care to the site can be done with mupirocin. The bilateral lower extremities Silvadene and Jurgen wrap is been requested given the edema and changes that are noted in that site. He's being followed by hematology oncology and is receiving growth factors. 02/22/2019 patient has had further improvement of his status. Redness to the anterior chest wall is improved. Is also much less tender. The patient overall feels better. Of note his leukopenia responded well to growth factors. His white count is at 5.9. As he is improving will be transitioned to Cefdnir or ally, which has been sent to his pharmacy Continue local care with mupirocin to the site of irritation or redness of the anterior chest wall given the marked improvement. Current Visit: Yes Status: Acute Priority: High Code(s): L03.313 - CELLULITIS OF CHEST WALL SNOMED Code(s): 73102057 (2) Neutropenic fever Current Visit: Yes Status: Acute Priority: High Code(s): D70.9 - NEUTROPENIA, UNSPECIFIED; R50.81 - FEVER PRESENTING WITH CONDITIONS CLASSIFIED ELSEWHERE SNOMED Code(s): 470578568 (3) Non-Hodgkin's lymphoma in adult Current Visit: Yes Status: Acute Priority: High Code(s): C85.90 - NON- HODGKIN LYMPHOMA, UNSPECIFIED, UNSPECIFIED SITE SNOMED Code(s): 344301945
[2019-02-23] MEDS: CEFEPIME 2 GM in SODIUM CHLORIDE 0.9% 100 ML IVPB SCH ×3 (01:16→15:52)
[2019-02-23] MEDS: SODIUM CHLORIDE 0.9% 1,000 ML IV SCH ×3 (01:16→16:09)
[2019-02-23] MEDS: IPRATROPIUM-ALBUTEROL 3 ML NEB INHALATION PRN ×2 (01:31→08:01)
[2019-02-23 08:15] VITALS: PULSE 94
[2019-02-23] MEDS: PANTOPRAZOLE 40 MG TABLET PO SCH (08:35)
[2019-02-23] MEDS: METOPROLOL TARTRATE 25 MG TAB PO SCH (08:35)
[2019-02-23] MEDS: ALLOPURINOL 300 MG TAB PO SCH (08:35)
[2019-02-23] MEDS: FOLIC ACID 1 MG TAB PO SCH (08:36)
[2019-02-23] MEDS: MUPIROCIN 2% OINT 22 GM TUBE TOPICAL SCH ×2 (08:43→16:09)
[2019-02-23 09:09] LABS: Phosphorus 1.9 mg/dL (2.5-4.5); Uric Acid 3.1 mg/dL (3.5-8.5)
[2019-02-23 12:45] VITALS: BP 127/63; RESP 18; TEMP 98.3
--- NOTE | 2019-02-23 12:49 | P.PN ---
Subjective Progress Note Date: 02/23/19 Principal diagnosis: Cellulitis, neutropenic fever In follow-up today patient continues to do well, he is asking about going home soon. The right chest wall continues to improve, denied fever, nausea, vomiting, cough, difficulty breathing, dysuria, hematuria, no BM today, he is independently ambulatory Objective - Vital Signs Vital signs: Vital Signs Temp 98.1 F 02/23/19 04:34 Pulse 94 02/23/19 08:14 Resp 20 02/23/19 08:00 BP 127/72 02/23/19 04:34 Pulse Ox 93 L 02/23/19 04:34 Intake & Output 02/22/19 02/23/19 02/23/19 18:59 06:59 18:59 Intake Total 2400 360 Balance 2400 360 Intake: Intake, IV Titration 1200 Amount Cefepime 2 gm In Sodium 100 Chloride 0.9% 100 ml @ 200 mls/hr IVPB Q8HR DA Rx#:[id number] Sodium Chloride 0.9% 1, 600 000 ml @ 150 mls/hr IV . Q6H40M DA Rx#:[id number] Vancomycin 2,000 mg In 500 Sodium Chloride 0.9% 500 ml 500 ml @ 167 mls/hr IVPB Q12H DA Rx#: [id number] Oral 1200 360 Other: Voiding Method Toilet Toilet Toilet # Voids 2 2 # Bowel Movements 1 - Constitutional General appearance: Present: cooperative, no acute distress, obese - EENT Eyes: Present: anicteric sclerae, EOMI ENT: Present: hearing grossly normal, normal oropharynx - Respiratory Respiratory: bilateral: CTA - Cardiovascular Rhythm: regular Heart sounds: normal: S1, S2 Abnormal Heart Sounds: Absent: systolic murmur, diastolic murmur, rub, S3 Gallop, S4 Gallop, click, other - Peripheral edema foot Peripheral Edema: bilateral: 2+ - Gastrointestinal General gastrointestinal: Present: normal bowel sounds, soft. Absent: absent bowel sounds, decreased bowel sounds, distended, hepatomegaly, hyperactive bowel sounds, organomegaly, rigid, scaphoid, splenomegaly, tenderness, umbilical hernia, ventral hernia - Integumentary Integumentary Comment(s): Right chest wall continues to be reddened, indurated, does not appear to have progressed from yesterday, no drainage, discomfort to palpation is stable - Neurologic Neurologic: Present: CNII-XII intact - Musculoskeletal Musculoskeletal: Present: strength equal bilaterally - Psychiatric Psychiatric: Present: A&O x's 3, appropriate affect - Labs CBC & Chem 7: 02/22/19 09:07 02/22/19 09:07 Labs: Abnormal Lab Results - Last 24 Hours (Table) 02/23/19 Range/Units 08:42 Uric Acid 3.1 L (3.5-8.5) mg/dL Phosphorus 1.9 L (2.5-4.5) mg/dL Microbiology - Last 24 Hours (Table) 02/19/19 12:13 Blood Culture - Preliminary Blood No Growth after 72 hours Assessment and Plan (1) Neutropenic fever Narrative/Plan: Patient is being treated with antibiotics, palacios cultures so far are negative. Patient's white blood cell count is up to 5.9, absolute neutrophil count today is 2.2. No fever since admission. CBC now. We will consider discontinuation of G-CSF as appropriate Current Visit: Yes Status: Acute Priority: High Code(s): D70.9 - NEUTROPENIA, UNSPECIFIED; R50.81 - FEVER PRESENTING WITH CONDITIONS CLASSIFIED ELSEWHERE SNOMED Code(s): 500638099 (2) Bicytopenia Narrative/Plan: CBC ordered for today, late. Right blood cells are stable yesterday, hemoglobin and platelets are stable yesterday, we will review results once available, t ransfusions as appropriate will be ordered if necessary. Current Visit: Yes Status: Acute Priority: High Code(s): D75.89 - OTHER SPECIFIED DISEASES OF BLOOD AND BLOOD-FORMING ORGANS SNOMED Code(s): 679909465 (3) Bilateral lower leg cellulitis Narrative/Plan: Continue treatment of cellulitis under the direction of Infectious Disease. No signs or symptoms of active cellulitis at this time Current Visit: Yes Status: Acute Priority: High Code(s): L03.116 - CELLULITIS OF LEFT LOWER LIMB; L03.115 - CELLULITIS OF RIGHT LOWER LIMB SNOMED Code(s): 757615496 (4) Cellulitis of chest wall Narrative/Plan: Improving. Continue to follow recommendations of Infectious Disease. Topical treatment as prescribed. Current Visit: Yes Status: Acute Priority: High Code(s): L03.313 - CELLULITIS OF CHEST WALL SNOMED Code(s): 55103147 (5) Non-Hodgkin's lymphoma in adult Narrative/Plan: Patient is status post first cycle of EPOCH. He is due for 2nd cycle. We reinforced 5 more cycles is what is done for treatment of lymphoma. Reinforced with patient that his symptoms and imaging show improvement. He verbalized understanding. Next cycle will be planned when he has been treated adequately for his 2 areas of cellulitis. I told him to anticipate his next cycle probably starting 1-2 weeks. He did verbalize understanding. All of his questions were answered to the best of my ability. Current Visit: Yes Status: Acute Priority: High Code(s): C85.90 - NON- HODGKIN LYMPHOMA, UNSPECIFIED, UNSPECIFIED SITE SNOMED Code(s): 596706495 (6) Sepsis Current Visit: Yes Status: Acute Priority: High Code(s): A41.9 - SEPSIS, UNSPECIFIED ORGANISM SNOMED Code(s): 32965462 Plan: Doctor attests: I performed a history and physical examination of this patient with dictator. I have developed impression and plan, agree with dictators note, documented as a scribe.
[2019-02-23 13:01] LABS: Anisocytosis Moderate; HCT 27.3 % (39.0-53.0); HGB 8.3 gm/dL (13.0-17.5); Hypochromasia Marked; MCH 27.6 pg (25.0-35.0); MCHC 30.4 g/dL (31.0-37.0); MCV 90.7 fL (80.0-100.0); Macrocytosis Slight; Mean Platelet Volume 7.8; Platelet Count 436 k/uL (150-450); Poikilocytosis Moderate; RBC 3.01 m/uL (4.30-5.90); RDW 21.3 % (11.5-15.5); WBC 14.4 k/uL (3.8-10.6)
[2019-02-23 13:05] LABS: Anion Gap 10 mmol/L; Blood Urea Nitrogen 4 mg/dL (9-20); Carbon Dioxide 20 mmol/L (22-30); Chloride 112 mmol/L (98-107); Glucose 93 mg/dL (74-99); Potassium 3.4 mmol/L (3.5-5.1); Sodium 142 mmol/L (137-145)
[2019-02-23 13:26] LABS: Band Neutrophils % 9 %; Eosinophils # (M) 0.14 k/uL (0-0.7); Lymphocytes # (M) 2.45 k/uL (1.0-4.8); Metamyelocytes # (M) 0.58 k/uL (0); Metamyelocytes % 4 %; Monocytes # (M) 1.58 k/uL (0-1.0); Myelocytes # (M) 0.29 k/uL (0); Myelocytes % 2 %; Neutrophils % (M) 58 %; Nucleated Red Blood Cells 0 /100 WBC (0-0); Total Cells Counted 200
[2019-02-23 13:28] LABS: Polychromasia Present; RBC Fragments Present
--- NOTE | 2019-02-23 14:32 | P.DS ---
Providers Date of admission: 02/19/19 12:34 Expected date of discharge: 02/23/19 Attending physician: Randy Leroy Consults: 02/19/19 16:55 Consult Physician Urgent Consulting Provider: Randy Merchant Consult Reason/Comments: Sepsis, possible infected PICC line Do you want consulting provider notified?: Yes 02/19/19 18:18 Consult Physician Urgent Consulting Provider: Dennys Zafar Consult Reason/Comments: Known patient Do you want consulting provider notified?: Yes Primary care physician: Stated None Randy Alvarez Hospital Course: Final Diagnoses: -Neutropenic fever -Sepsis secondary to cellulitis of the right chest and legs -Bilateral lower extremity cellulitis, improving -Right anterior chest cellulitis secondary to chemo extravasation -Non-Hodgkin's lymphoma Hospital course:This is a 54-year-old gentleman admitted with sepsis, cellulitis, chemotherapy extravasation of the right anterior chest, chronic diastolic CHF, febrile neutropenia and multiple other medical issues. Evaluated by both oncology, infectious disease. Maintained on vancomycin and cefepime with significant clinical improvement. Afebrile, WBC improving, up to 14.4, neutrophils 58 on Zarxio. Cleared by all consults for discharge. Patient is being discharged home in a stable condition with guarded prognosis. EXAM: GENERAL: Alert and oriented 3, no acute distress CARDIOVASCULAR: S1, S2 regular. No murmur, no rubs, no gallops RESPIRATION: Breath sounds diminished in the bases. No rhonchi or crackles. ABDOMEN: Soft, nontender . No guarding. no masses palpable. Bowel sounds heard. NERVOUS SYSTEM: Cranial N 2-12 grossly normal. Moves all 4 limbs. Diffuse weakness No focal deficits. Skin: Right anterior and lateral chest wall firmness/edema improving with nondraining scabs. Refer to chart documentation for sizing. The impression and plan of care has been dictated as directed. : I performed a history and examination of this patient, discussed the same with the dictator. I agree with the dictator's note ,documented as a scribe. Any additional findings or plans will be noted. Time taken: 35 minutes Patient Condition at Discharge: Stable Plan - Discharge Summary Discharge Rx Participant: Yes New Discharge Prescriptions: New Cefdinir 300 mg PO Q12HR #20 cap Loperamide [Imodium] 2 mg PO QID PRN cap PRN Reason: Diarrhea Pantoprazole [Protonix] 40 mg PO AC-BID #60 tablet. HYDROcodone/APAP 5-325MG [Harmony 5-325] 1 each PO Q6H PRN #12 tab PRN Reason: Pain Continue Metoprolol Tartrate [Lopressor] 25 mg PO BID Allopurinol [Zyloprim] 300 mg PO DAILY Folic Acid 1 mg PO DAILY Furosemide [Lasix] 20 mg PO DAILY Discontinued Omeprazole [PriLOSEC] 20 mg PO BID Discharge Medication List Allopurinol [Zyloprim] 300 mg PO DAILY 02/19/19 [History] Folic Acid 1 mg PO DAILY 02/19/19 [History] Furosemide [Lasix] 20 mg PO DAILY 02/19/19 [History] Metoprolol Tartrate [Lopressor] 25 mg PO BID 02/19/19 [History] Cefdinir 300 mg PO Q12HR #20 cap 02/22/19 [Rx] HYDROcodone/APAP 5-325MG [Harmony 5-325] 1 each PO Q6H PRN #12 tab 02/23/19 [Rx] Loperamide [Imodium] 2 mg PO QID PRN cap 02/23/19 [Rx] Pantoprazole [Protonix] 40 mg PO AC-BID #60 tablet. 02/23/19 [Rx] Follow up Appointment(s)/Referral(s): Dennys Zafar MD [STAFF PHYSICIAN] - 03/02/19 9:00 am [facility],Equipment [NON-STAFF] - 1 Week Randy Leroy MD [STAFF PHYSICIAN] - 03/04/19 2:15 pm [facility], [NON-STAFF] - 1-2 Days Ambulatory/Diagnostic Orders: Complete Blood Count w/diff [LAB.AMB] Time Frame: 3 Days, Location: None Selected Patient Instructions/Handouts: Hydrocodone/Acetaminophen (By mouth), Cefdinir (By mouth), Pantoprazole (By mouth), Cellulitis (DC), Sepsis (GEN) Activity/Diet/Wound Care/Special Instructions: Woundcare & Antibiotics as per ID pt will be sent home with a rolling walker Alice as per oncology, WBC up to 5.9, neuts 35
== END 2019-02-23 17:20 | disposition home health service (06) | DRG 872 ==
LOC: EC 10:42 → 3NMEDONC 12:34
PROVIDERS: ADMIT Family Medicine; ATTEND Family Medicine
PROC: 3E02340 Introduction of Influenza Vaccine into Muscle, Percutaneous Approach (ICD-10-PCS; principal; 2019-02-19)
PROC: 3E0234Z Introduction of Serum, Toxoid and Vaccine into Muscle, Percutaneous Approach (ICD-10-PCS; 2019-02-19)
DX: A41.9 Sepsis, unspecified organism (principal); I50.32 Chronic diastolic (congestive) heart failure; C85.90 Non-Hodgkin lymphoma, unspecified, unspecified site; L03.313 Cellulitis of chest wall; L03.115 Cellulitis of right lower limb; L03.116 Cellulitis of left lower limb; T80.810A Extravasation of vesicant antineoplastic chemotherapy, initial encounter; I11.0 Hypertensive heart disease with heart failure; D70.3 Neutropenia due to infection; D70.1 Agranulocytosis secondary to cancer chemotherapy; R50.81 Fever presenting with conditions classified elsewhere; E78.5 Hyperlipidemia, unspecified; Z23 Encounter for immunization; M10.9 Gout, unspecified; F32.9 Major depressive disorder, single episode, unspecified; E66.9 Obesity, unspecified; Z68.38 Body mass index [BMI] 38.0-38.9, adult; Z79.899 Other long term (current) drug therapy; Z87.891 Personal history of nicotine dependence; Z98.890 Other specified postprocedural states; Z91.040 Latex allergy status; Z91.048 Other nonmedicinal substance allergy status
CPT/HCPCS: 36415; 71046; 71250; 80048; 80053; 80202; 81003; 83605; 83735; 83880; 84100; 84484; 84550; 85025; 85610; 85730; 87040; 87086; 87324; 93005; 94640; 94760; 96365; 96366; 96368; 99291

== ENCOUNTER 2019-03-03 12:31 | Inpatient (IN) | payer OTHER ==
[2019-03-04] MEDS ORDERED: ONDANSETRON 4 MG/2 ML VIAL IVP PRN (08:00)
[2019-03-04] MEDS: SODIUM CHLORIDE 0.9% 1,000 ML IV SCH ×3 (08:03→23:31)
[2019-03-04 09:18] LABS: INR 0.9 (<1.2); Prothrombin Time 10.2 sec (9.0-12.0)
[2019-03-04 09:25] LABS: ALT 20 U/L (21-72); AST 20 U/L (17-59); Albumin 3.4 g/dL (3.5-5.0); Alkaline Phosphatase 101 U/L (38-126); Anion Gap 6 mmol/L; Blood Urea Nitrogen 14 mg/dL (9-20); Calcium 9.1 mg/dL (8.4-10.2); Carbon Dioxide 26 mmol/L (22-30); Chloride 108 mmol/L (98-107); Glucose 114 mg/dL (74-99); Potassium 4.5 mmol/L (3.5-5.1); Sodium 140 mmol/L (137-145); Total Bilirubin 0.5 mg/dL (0.2-1.3); Total Protein 5.5 g/dL (6.3-8.2); Uric Acid 4.8 mg/dL (3.5-8.5)
[2019-03-04 09:32] LABS: Anisocytosis Moderate; Basophils # (A) 0.1 k/uL (0-0.2); Basophils % (A) 1 %; Eosinophils # (A) 0.1 k/uL (0-0.7); Eosinophils % (A) 1 %; HCT 29.7 % (39.0-53.0); HGB 9.3 gm/dL (13.0-17.5); Hypochromasia Marked; Lymphocytes # (A) 1.4 k/uL (1.0-4.8); Lymphocytes % (A) 18 %; MCH 28.7 pg (25.0-35.0); MCHC 31.4 g/dL (31.0-37.0); MCV 91.6 fL (80.0-100.0); Macrocytosis Slight; Mean Platelet Volume 7.1; Monocytes # (A) 0.5 k/uL (0-1.0); Monocytes % (A) 6 %; Neutrophils # (A) 5.6 k/uL (1.3-7.7); Neutrophils % (A) 72 %; Platelet Count 285 k/uL (150-450); Poikilocytosis Moderate; RBC 3.25 m/uL (4.30-5.90); RDW 22.5 % (11.5-15.5); WBC 7.8 k/uL (3.8-10.6)
[2019-03-04] MEDS ORDERED: LIDOCAINE 1% INJ 10MG/ML (20 ML MDV) ONE (10:08)
[2019-03-04] MEDS ORDERED: LIDOCAINE 1% INJ 10MG/ML (20 ML MDV) SQ ONE (10:17)
[2019-03-04] MEDS ORDERED: HYDROcodone/APAP 5-325MG 1 EACH TAB PO PRN (11:40)
[2019-03-04] MEDS ORDERED: LOPERAMIDE 2 MG CAP PO PRN (11:40)
--- NOTE | 2019-03-04 11:51 | IR ---
EXAMINATION TYPE: IR cvc insert >=5 years DATE OF EXAM: 03/04/2019 COMPARISON: NONE CLINICAL HISTORY: Lymphoma Needs long-term intravenous access for chemotherapy. PROCEDURE: After informed consent, the skin overlying the left basilic vein was localized with ultrasound and no candis to be compressible and patent. An ultrasound image was obtained and submitted on the patient's c perez. The overlying skin was prepped and draped and Lidocaine was used for local anesthesia. A skin ximena was made with a scalpel. Access was gained to the vein under ultrasound guidance with a 21 gau ge needle and a 0.018 inch wire was advanced. Access site was dilated with Peel-Away sheath and cath eter tailored to the appropriate length and advanced such that the distal tip is at the cavoatrial ju nction. Spot image was obtained verifying placement. Catheter was fixed to the skin and a sterile d ressing was placed following hemostasis. Catheter was aspirated and flushed with saline. Patient wa s discharged in stable condition without complication. Maximal barrier technique is utilized. Ultras ound image is documented on the chart. Ultrasound used with sterile technique. Fluoro time and fluoroscopic images submitted to document procedure: 75 intraoperative images, 0.5 mi nutes fluoroscopy time IMPRESSION: STATUS POST ULTRASOUND AND FLUOROSCOPIC GUIDED PICC LINE PLACEMENT, READY FOR USE. THIS PROCEDURE WAS PERFORMED BY THE UNDERSIGNED.
[2019-03-04] MEDS: CEFDINIR 300 MG CAP PO SCH ×2 (14:03→21:31)
[2019-03-04] MEDS: ALLOPURINOL 300 MG TAB PO SCH (14:03)
[2019-03-04] MEDS: METOPROLOL TARTRATE 25 MG TAB PO SCH ×2 (14:03→21:32)
[2019-03-04] MEDS: FOLIC ACID 1 MG TAB PO SCH (14:03)
[2019-03-04] MEDS: FUROSEMIDE 20 MG TAB PO SCH (14:03)
[2019-03-04] MEDS: ONDANSETRON 16 MG in SODIUM CHLORIDE 0.9% 50 ML IVPB SCH (15:34)
[2019-03-04] MEDS: FAMOTIDINE 20 MG/2 ML VIAL IV SCH (15:35)
[2019-03-04] MEDS: predniSONE 20 MG TAB PO SCH ×2 (15:35→21:31)
[2019-03-04] MEDS: SALT AND SODA MOUTHWASH 1,000 ML PO SCH ×4 (15:44→23:57)
[2019-03-04] MEDS: [UNRECOGNIZED DRUG - OTHER] IV SCH (17:09)
[2019-03-04] MEDS: VINCRISTINE SULFATE IV SCH (17:09)
[2019-03-04] MEDS: DOXORUBICIN HCL IV SCH (17:09)
[2019-03-04] MEDS: ETOPOSIDE IV SCH (17:09)
--- NOTE | 2019-03-04 19:56 | P.HPIM ---
History of Present Illness H&P Date: 03/04/19 Chief Complaint: admit for cycle 2 of REPOCH, Hodgkins Disease Mr. Lamb is a very pleasant male pt of Dr. Zafar diagnosed with Hodgkins Lymphoma after a much testing. Initial consult 12/15/18, complaints of persistent fatigue, progressive shortness of breath on exertion, weight loss of about 30 pounds in the prior 3-4 months. Imaging showed evidence of obstructive uropathy and diffuse adenopathy above and below the diaphragm, right supraclavicular nodes were palpable. Right supraclavicular lymph node biopsy on 12/16/18, initial biopsy report appeared to indicate Hodgkin lymphoma versus anaplastic T-cell lymphoma. Specimen sent to [facility] for consultation. 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 ALK testing was negative. B and T-cell rearrangement studies were ordered. Surprisingly B cell gene rearrangement, while T-cell rearrangements were negative. 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 Bone marrow biopsy on 01/15/19 showed significant involvement with lymphoma. Gene rearrangement studies did not show B or T cell markers!! PET was ordered but the patient did not keep that appointment. He was also referred to the [facility], appointment was delayed due to to have not having insurance. Unfortunately pt was admitted to [facility] with progressive respiratory symptoms. He was started emergently on EPOCH on 02/07/19. He had extravasation of chemo causing soft tissue damage in the rt upper chest wall, this is stable and improved. Continues supportive treatment. He was admitted with febrile neutropenia to [facility]. He improved with antibiotics and GCSf. He is admitted for cycle 2. He is good spirits, his breathing feels normal! Denies fever, chills, nausea, vomiting, YONIS, chest pain, cough, abd pain, distension, dysuria, hematuria, diarrhea, constipation, swelling or pain, appetite and energy are good. His sister is his primary caregiver. Review of Systems 14 point review of systems is negative except as stated in HPI Past Medical History Past Medical History: Cancer, Hyperlipidemia, Hypertension Additional Past Medical History / Comment(s): Non hodgkins lymphoma. History of Any Multi-Drug Resistant Organisms: None Reported Past Surgical History: No Surgical Hx Reported Additional Past Surgical History / Comment(s): Colonoscopy, lymph node biopsy. Past Anesthesia/Blood Transfusion Reactions: No Reported Reaction Additional Past Anesthesia/Blood Transfusion Reaction / Comment(s): Pt has received blood in past without reaction. Past Psychological History: Bipolar, Depression Additional Psychological History / Comment(s): single. No children. Family are involved in helping him with his current situation. 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 no experience. No international travel. No animal exposures Smoking Status: Former smoker Past Alcohol Use History: None Reported Additional Past Alcohol Use History / Comment(s): Quit smoking December 2018. Smoked 30+ yrs, 1 PPD cutting down to 1/4PPD before quitting. Past Drug Use History: None Reported - Past Family History Father Family Medical History: No Reported History Additional Family Medical History / Comment(s): Father is healthy and is 82 yrs old. Mother Family Medical History: No Reported History Additional Family Medical History / Comment(s): Mother from dementia. Medications and Allergies Home Medications Medication Instructions Recorded Confirmed Type Allopurinol [Zyloprim] 300 mg PO DAILY 02/19/19 03/03/19 History Folic Acid 1 mg PO DAILY 02/19/19 03/03/19 History Furosemide [Lasix] 20 mg PO DAILY 02/19/19 03/03/19 History Metoprolol Tartrate [Lopressor] 25 mg PO BID 02/19/19 03/03/19 History Cefdinir 300 mg PO Q12HR #20 cap 02/22/19 03/03/19 Rx Loperamide [Imodium] 2 mg PO QID PRN cap 02/23/19 03/03/19 Rx Pantoprazole [Protonix] 40 mg PO AC-BID #60 tablet. 02/23/19 03/03/19 Rx HYDROcodone/APAP 5-325MG [Ashby 1 tab PO Q6H PRN 03/03/19 03/03/19 History 5-325] Allergies Allergy/AdvReac Type Severity Reaction Status Date / Time latex Allergy Rash/Hives Verified 03/03/19 18:45 ragweed pollen Allergy Unknown Verified 03/03/19 18:45 Physical Exam Vitals: Vital Signs Temp Pulse Resp BP Pulse Ox 03/04/19 17:09 98.3 F 99 16 132/76 96 03/04/19 12:44 98.0 F 107 H 16 138/83 96 03/04/19 05:00 98.2 F 113 H 16 135/84 92 L 03/03/19 21:22 97.6 F 104 H 16 129/84 92 L Intake and Output 03/04/19 03/04/19 03/04/19 06:59 14:59 22:59 Intake Total 590 150 Balance 590 150 Intake: IV 150 Sodium Chloride 0.9% 1, 150 000 ml @ 75 mls/hr IV CONTINUOUS DA Rx#: [id number] Oral 590 Other: Voiding Method Toilet Toilet Toilet # Voids 3 - Constitutional General appearance: cooperative, no acute distress, obese - EENT Eyes: anicteric sclerae, EOMI, poor dentition, normal appearance ENT: hearing grossly normal, normal oropharynx - Neck Neck: no lymphadenopathy - Respiratory Respiratory: bilateral: CTA - Cardiovascular Rhythm: regular Heart sounds: normal: S1, S2 Abnormal Heart Sounds: no systolic murmur, no diastolic murmur, no rub, no S3 Gallop, no S4 Gallop, no click, no other leg Peripheral Edema: bilateral: None - Gastrointestinal General gastrointestinal: no absent bowel sounds, no decreased bowel sounds, no distended, no hepatomegaly, no hyperactive bowel sounds, normal bowel sounds, no organomegaly, no rigid, no scaphoid, soft, no splenomegaly, no tenderness, no umbilical hernia, no ventral hernia - Integumentary Right chest wall induration is about 10 cm, nearly circular, 2 scabbed areas, no purulent drainage, red, warm to the touch, mildly tender, stable and signifi cantly improved Integumentary: normal turgor, pale - Neurologic Neurologic: CNII-XII intact - Musculoskeletal Musculoskeletal: strength equal bilaterally - Psychiatric mild cognitive impairment Psychiatric: A&O x's 3, appropriate affect, intact judgment & insight Results CBC & Chem 7: 03/04/19 08:40 03/04/19 08:40 Labs: Abnormal Lab Results - Last 24 Hours (Table) 03/04/19 03/04/19 Range/Units 08:40 08:40 RBC 3.25 L (4.30-5.90) m/uL Hgb 9.3 L (13.0-17.5) gm/dL Hct 29.7 L (39.0-53.0) % RDW 22.5 H (11.5-15.5) % Chloride 108 H (98-107) mmol/L Glucose 114 H (74-99) mg/dL ALT 20 L (21-72) U/L Total Protein 5.5 L (6.3-8.2) g/dL Albumin 3.4 L (3.5-5.0) g/dL Thrombosis Risk Factor Assmnt - DVT/VTE Prophylaxis DVT/VTE Prophylaxis: Pharmacologic Prophylaxis ordered - Choose All That Apply Each Factor Represents 1 point: Age 41-60 years Thrombosis Risk Factor Assessment Total Risk Factor Score: 1 Thrombosis Risk Factor Assessment Level: Low Risk Assessment and Plan (1) Hodgkin lymphoma of extranodal or solid organ site Narrative/Plan: Admit for cycle 2 of REPOCH. Orders reviewed Home medications reconciled Labs daily Follow-up daily Supportive medications ordered GI and DVT prophylaxis Current Visit: Yes Status: Acute Priority: High Code(s): C81.99 - HODGKIN LYMPHOMA, UNSP, EXTRANODAL AND SOLID ORGAN SITES SNOMED Code(s): 32552611 (2) Cellulitis of chest wall Narrative/Plan: Continue prescribed treatments, Infectious Disease consulted Current Visit: Yes Status: Acute Priority: Medium Code(s): L03.313 - CELLULITIS OF CHEST WALL SNOMED Code(s): 68910653
[2019-03-04] MEDS ORDERED: FAMOTIDINE 20 MG TAB PO SCH (21:00)
[2019-03-05] MEDS: SALT AND SODA MOUTHWASH 1,000 ML PO SCH ×4 (06:03→22:30)
[2019-03-05 08:32] LABS: Anisocytosis Moderate; Basophils % (A) 0 %; Eosinophils # (A) 0.1 k/uL (0-0.7); Eosinophils % (A) 1 %; HCT 31.4 % (39.0-53.0); HGB 9.6 gm/dL (13.0-17.5); Hypochromasia Marked; Lymphocytes # (A) 1.1 k/uL (1.0-4.8); Lymphocytes % (A) 16 %; MCH 27.7 pg (25.0-35.0); MCHC 30.7 g/dL (31.0-37.0); MCV 90.1 fL (80.0-100.0); Macrocytosis Slight; Mean Platelet Volume 7.1; Monocytes # (A) 0.5 k/uL (0-1.0); Monocytes % (A) 7 %; Neutrophils # (A) 5.1 k/uL (1.3-7.7); Neutrophils % (A) 75 %; Platelet Count 334 k/uL (150-450); Poikilocytosis Moderate; RBC 3.48 m/uL (4.30-5.90); RDW 22.1 % (11.5-15.5); WBC 6.9 k/uL (3.8-10.6)
[2019-03-05 08:40] LABS: ALT 20 U/L (21-72); AST 20 U/L (17-59); Albumin 3.7 g/dL (3.5-5.0); Alkaline Phosphatase 99 U/L (38-126); Anion Gap 8 mmol/L; Blood Urea Nitrogen 19 mg/dL (9-20); Calcium 9.4 mg/dL (8.4-10.2); Carbon Dioxide 24 mmol/L (22-30); Chloride 109 mmol/L (98-107); Glucose 117 mg/dL (74-99); Potassium 4.9 mmol/L (3.5-5.1); Sodium 141 mmol/L (137-145); Total Bilirubin 0.6 mg/dL (0.2-1.3); Total Protein 5.9 g/dL (6.3-8.2); Uric Acid 5.4 mg/dL (3.5-8.5)
[2019-03-05] MEDS: ALLOPURINOL 300 MG TAB PO SCH (09:22)
[2019-03-05] MEDS: CEFDINIR 300 MG CAP PO SCH ×2 (09:22→22:30)
[2019-03-05] MEDS: predniSONE 20 MG TAB PO SCH ×2 (09:23→22:31)
[2019-03-05] MEDS: FUROSEMIDE 20 MG TAB PO SCH (09:23)
[2019-03-05] MEDS: FOLIC ACID 1 MG TAB PO SCH (09:23)
[2019-03-05] MEDS: METOPROLOL TARTRATE 25 MG TAB PO SCH ×2 (09:23→22:31)
--- NOTE | 2019-03-05 11:56 | P.CONS ---
History of Present Illness - Reason for Consult Consult date: 03/05/19 Right chest wall cellulitis - History of Present Illness 54-year-old male with past medical history of Hodgkin lymphoma and was recently hospitalized February 19 through the where he was treated for neutropenic fever and cellulitis of the right chest wall. Patient was stabilized and discharged home and continued on Omnicef. Patient has been brought into the hospital for cycle 2 R-EPOCH. Patient continues to have cellulitis to the right chest wall with large ulceration. He has been afebrile wild mild tachycardia. WBC 6.9, hemoglobin 9.6, platelet count 334. The creatinine is 1.03. Albumin 3.7. Patient has been continued on Omnicef and Bactroban will be added for wound care. Review of Systems All systems: negative Constitutional: Reports fatigue, Denies chills, Denies fever, Denies weakness Eyes: denies blurred vision, denies pain Ears, nose, mouth and throat: Denies dysphagia, Denies headache, Denies nasal congestion, Denies nasal discharge, Denies sore throat, Denies vertigo Cardiovascular: Denies chest pain, Denies decreased exercise tolerance, Denies dyspnea on exertion, Denies edema, Denies leg edema, Denies lightheadedness, Denies shortness of breath, Denies syncope Respiratory: Reports cough, Denies cough with sputum, Denies dyspnea, Denies excessive sputum, Denies hemoptysis, Denies home oxygen, Denies wheezing Gastrointestinal: Denies abdominal pain, Denies diarrhea, Denies loss of a ppetite, Denies nausea, Denies vomiting Genitourinary: Denies urinary frequency, Denies urinary retention Musculoskeletal: Denies myalgias Integumentary: Reports sores, Reports wounds, Denies pruritus, Denies rash Neurological: Denies aphasia, Denies change in mentation, Denies change in speech, Denies gait dysfunction, Denies headaches, Denies numbness, Denies weakness Psychiatric: Denies anxiety, Denies depression Endocrine: Denies fatigue, Denies weight change Past Medical History Past Medical History: Cancer, Hyperlipidemia, Hypertension Additional Past Medical History / Comment(s): Non hodgkins lymphoma. History of Any Multi-Drug Resistant Organisms: None Reported Past Surgical History: No Surgical Hx Reported Additional Past Surgical History / Comment(s): Colonoscopy, lymph node biopsy. Past Anesthesia/Blood Transfusion Reactions: No Reported Reaction Additional Past Anesthesia/Blood Transfusion Reaction / Comm: Pt has received blood in past without reaction. Past Psychological History: Bipolar, Depression Additional Psychological History / Comment(s): single. No children. Family are involved in helping him with his current situation. 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 No international travel. No animal exposures Smoking Status: Former smoker Past Alcohol Use History: None Reported Additional Past Alcohol Use History / Comment(s): Quit smoking December 2018. Smoked 30+ yrs, 1 PPD cutting down to 1/4PPD before quitting. Past Drug Use History: None Reported - Past Family History Father Family Medical History: No Reported History Additional Family Medical History / Comment(s): Father is healthy and is 82 yrs old. Mother Family Medical History: No Reported History Additional Family Medical History / Comment(s): Mother from dementia. Medications and Allergies Home Medications Medication Instructions Recorded Confirmed Type Allopurinol [Zyloprim] 300 mg PO DAILY 02/19/19 03/03/19 History Folic Acid 1 mg PO DAILY 02/19/19 03/03/19 History Furosemide [Lasix] 20 mg PO DAILY 02/19/19 03/03/19 History Metoprolol Tartrate [Lopressor] 25 mg PO BID 02/19/19 03/03/19 History Cefdinir 300 mg PO Q12HR #20 cap 02/22/19 03/03/19 Rx Loperamide [Imodium] 2 mg PO QID PRN cap 02/23/19 03/03/19 Rx Pantoprazole [Protonix] 40 mg PO AC-BID #60 tablet. 02/23/19 03/03/19 Rx HYDROcodone/APAP 5-325MG [[place] 1 tab PO Q6H PRN 03/03/19 03/03/19 History 5-325] Allergies Allergy/AdvReac Type Severity Reaction Status Date / Time latex Allergy Rash/Hives Verified 03/03/19 18:45 ragweed pollen Allergy Unknown Verified 03/03/19 18:45 Physical Exam Vitals: Vital Signs Temp Pulse Resp BP Pulse Ox 03/05/19 04:00 97.5 F L 93 16 116/67 93 L 03/04/19 23:53 98.7 F 99 16 146/79 93 L 03/04/19 21:00 98.8 F 100 16 159/90 91 L 03/04/19 17:09 98.3 F 99 16 132/76 96 03/04/19 12:44 98.0 F 107 H 16 138/83 96 Intake and Output 03/04/19 03/05/19 03/05/19 22:59 06:59 14:59 Intake Total 1180 590 Output Total 600 Balance 1180 -10 Intake: Oral 1180 590 Output: Urine 600 Other: Voiding Method Toilet Toilet Urinal # Voids 2 3 Gen: This is a 54-year-old male. Patient is resting in bed and appears to be comfortable and in no acute distress. HEENT: Head is atraumatic, normocephalic. Pupils equal, round. Sclerae is anicteric. Oral mucous membranes are moist. No thrush noted. NECK: Supple. No JVD. No lymphadenopathy. No thyromegaly. LUNGS: Clear to auscultation. No wheezes or rhonchi. No intercostal retractions. HEART: Regular rate and rhythm. No murmur. Patient has large area on the right anterior chest with erythema and ulceration. No significant drainage. ABDOMEN: Soft. Bowel sounds are present. No masses. No tenderness. EXTREMITIES: Trace bilateral pedal edema. No calf tenderness. Dorsalis pedis +2 bilaterally. NEUROLOGICAL: Patient is awake, alert and oriented x3. Cranial nerves 2 through 12 are grossly intact. Results Results: Laboratory Results WBC 6.9 k/uL (3.8-10.6) 03/05/19 07:38 RBC 3.48 m/uL (4.30-5.90) L 03/05/19 07:38 Hgb 9.6 gm/dL (13.0-17.5) L 03/05/19 07:38 Hct 31.4 % (39.0-53.0) L 03/05/19 07:38 MCV 90.1 fL (80.0-100.0) 03/05/19 07:38 MCH 27.7 pg (25.0-35.0) 03/05/19 07:38 MCHC 30.7 g/dL (31.0-37.0) L 03/05/19 07:38 RDW 22.1 % (11.5-15.5) H 03/05/19 07:38 Plt Count 334 k/uL (150-450) 03/05/19 07:38 Neutrophils % 75 % 03/05/19 07:38 Lymphocytes % 16 % 03/05/19 07:38 Monocytes % 7 % 03/05/19 07:38 Eosinophils % 1 % 03/05/19 07:38 Basophils % 0 % 03/05/19 07:38 Neutrophils # 5.1 k/uL (1.3-7.7) 03/05/19 07:38 Lymphocytes # 1.1 k/uL (1.0-4.8) 03/05/19 07:38 Monocytes # 0.5 k/uL (0-1.0) 03/05/19 07:38 Eosinophils # 0.1 k/uL (0-0.7) 03/05/19 07:38 Basophils # 0.0 k/uL (0-0.2) 03/05/19 07:38 Hypochromasia Marked 03/05/19 07:38 Poikilocytosis Moderate 03/05/19 07:38 Anisocytosis Moderate 03/05/19 07:38 Macrocytosis Slight 03/05/19 07:38 PT 10.2 sec (9.0-12.0) 03/04/19 08:40 INR 0.9 (<1.2) 03/04/19 08:40 Sodium 141 mmol/L (137-145) 03/05/19 07:38 Potassium 4.9 mmol/L (3.5-5.1) 03/05/19 07:38 Chloride 109 mmol/L (98-107) H 03/05/19 07:38 Carbon Dioxide 24 mmol/L (22-30) 03/05/19 07:38 Anion Gap 8 mmol/L 03/05/19 07:38 BUN 19 mg/dL (9-20) 03/05/19 07:38 Creatinine 1.03 mg/dL (0.66-1.25) 03/05/19 07:38 Est GFR (CKD-EPI)AfAm >90 (>60 ml/min/1.73 sqM) 03/05/19 07:38 Est GFR (CKD-EPI)NonAf 82 (>60 ml/min/1.73 sqM) 03/05/19 07:38 Glucose 117 mg/dL (74-99) H 03/05/19 07:38 Uric Acid 5.4 mg/dL (3.5-8.5) 03/05/19 07:38 Calcium 9.4 mg/dL (8.4-10.2) 03/05/19 07:38 Total Bilirubin 0.6 mg/dL (0.2-1.3) 03/05/19 07:38 AST 20 U/L (17-59) 03/05/19 07:38 ALT 20 U/L (21-72) L 03/05/19 07:38 Alkaline Phosphatase 99 U/L (38-126) 03/05/19 07:38 Total Protein 5.9 g/dL (6.3-8.2) L 03/05/19 07:38 Albumin 3.7 g/dL (3.5-5.0) 03/05/19 07:38 CBC & Chem 7: 03/05/19 07:38 03/05/19 07:38 Labs: Abnormal Lab Results - Last 24 Hours (Table) 03/04/19 03/04/19 03/05/19 Range/Units 08:40 08:40 07:38 RBC 3.25 L 3.48 L (4.30-5.90) m/uL Hgb 9.3 L 9.6 L (13.0-17.5) gm/dL Hct 29.7 L 31.4 L (39.0-53.0) % MCHC 30.7 L (31.0-37.0) g/dL RDW 22.5 H 22.1 H (11.5-15.5) % Chloride 108 H (98-107) mmol/L Glucose 114 H (74-99) mg/dL ALT 20 L (21-72) U/L Total Protein 5.5 L (6.3-8.2) g/dL Albumin 3.4 L (3.5-5.0) g/dL 03/05/19 Range/Units 07:38 RBC (4.30-5.90) m/uL Hgb (13.0-17.5) gm/dL Hct (39.0-53.0) % MCHC (31.0-37.0) g/dL RDW (11.5-15.5) % Chloride 109 H (98-107) mmol/L Glucose 117 H (74-99) mg/dL ALT 20 L (21-72) U/L Total Protein 5.9 L (6.3-8.2) g/dL Albumin (3.5-5.0) g/dL Assessment and Plan Plan: This is a 54-year-old male patient with history of Hodgkin's lymphoma admitted to the hospital for second cycle of chemotherapy. Patient has a large ulceration and cellulitis to the right anterior chest wall. Patient is currently on Omnicef. Local wound care with Bactroban will be added. Continue supportive care. Further recommendations as patient progresses. The above dictated assessment and findings were discussed with Dr. Merchant. The impression and plan of care have been directed as dictated. Jenifer Faulkner nurse practitioner acting as scribe for Dr. Merchant.
[2019-03-05] MEDS: SODIUM CHLORIDE 0.9% 1,000 ML IV SCH (12:01)
--- NOTE | 2019-03-05 16:00 | P.CONS ---
History of Present Illness - Reason for Consult Consult date: 03/05/19 Medical management Requesting physician: Dennys Zafar - Chief Complaint Hodgkins lymphoma - History of Present Illness This is a 54-year-old gentleman who presented to the hospital for chemotherapy for Hodgkin's lymphoma. The patient has known cellulitis to the right chest w all with large ulceration due to extravasated chemotherapy. The patient was recently hospitalized with neutropenic fever. He states his right chest wall wound is improving slowly. He is wondering how much more chemotherapy he needs. These questions are deferred to the oncology team. The patient does have a history of COPD and tobacco use. All the patient has probable obstructive sleep apnea. Review of Systems All systems: negative Past Medical History Past Medical History: Cancer, Hyperlipidemia, Hypertension Additional Past Medical History / Comment(s): Non hodgkins lymphoma. History of Any Multi-Drug Resistant Organisms: None Reported Past Surgical History: No Surgical Hx Reported Additional Past Surgical History / Comment(s): Colonoscopy, lymph node biopsy. Past Anesthesia/Blood Transfusion Reactions: No Reported Reaction Additional Past Anesthesia/Blood Transfusion Reaction / Comm: Pt has received blood in past without reaction. Past Psychological History: Bipolar, Depression Additional Psychological History / Comment(s): single. No children. Family are involved in helping him with his current situation. 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 No international travel. No animal exposures Smoking Status: Former smoker Past Alcohol Use History: None Reported Additional Past Alcohol Use History / Comment(s): Quit smoking December 2018. Smoked 30+ yrs, 1 PPD cutting down to 1/4PPD before quitting. Past Drug Use History: None Reported - Past Family History Father Family Medical History: No Reported History Additional Family Medical History / Comment(s): Father is healthy and is 82 yrs old. Mother Family Medical History: No Reported History Additional Family Medical History / Comment(s): Mother from dementia. Medications and Allergies Home Medications Medication Instructions Recorded Confirmed Type Allopurinol [Zyloprim] 300 mg PO DAILY 02/19/19 03/03/19 History Folic Acid 1 mg PO DAILY 02/19/19 03/03/19 History Furosemide [Lasix] 20 mg PO DAILY 02/19/19 03/03/19 History Metoprolol Tartrate [Lopressor] 25 mg PO BID 02/19/19 03/03/19 History Cefdinir 300 mg PO Q12HR #20 cap 02/22/19 03/03/19 Rx Loperamide [Imodium] 2 mg PO QID PRN cap 02/23/19 03/03/19 Rx Pantoprazole [Protonix] 40 mg PO AC-BID #60 tablet. 02/23/19 03/03/19 Rx HYDROcodone/APAP 5-325MG [[place] 1 tab PO Q6H PRN 03/03/19 03/03/19 History 5-325] Allergies Allergy/AdvReac Type Severity Reaction Status Date / Time latex Allergy Rash/Hives Verified 03/03/19 18:45 ragweed pollen Allergy Unknown Verified 03/03/19 18:45 Physical Exam Osteopathic Statement: *. No significant issues noted on an osteopathic structural exam other than those noted in the History and Physical/Consult. Vitals: Vital Signs Temp Pulse Resp BP Pulse Ox 03/05/19 12:00 97.4 F L 90 17 144/89 96 03/05/19 08:00 109 H 03/05/19 04:00 97.5 F L 93 16 116/67 93 L 03/04/19 23:53 98.7 F 99 16 146/79 93 L 03/04/19 21:00 98.8 F 100 16 159/90 91 L 03/04/19 17:09 98.3 F 99 16 132/76 96 Intake and Output 03/05/19 03/05/19 03/05/19 06:59 14:59 22:59 Intake Total 590 Output Total 600 Balance -10 Intake: Oral 590 Output: Urine 600 Other: Voiding Method Toilet Urinal # Voids 3 Gen.: Patient is alert and oriented 3, no acute distress Cardiovascular: Regular rate and rhythm, S1/S2 Lungs: Diminished breath sounds bilaterally at the bases otherwise clear, right anterior chest wall abscess/cellulitis Abdomen: Soft nontender nondistended positive bowel sounds Extremities: Trace edema Results CBC & Chem 7: 03/05/19 07:38 03/05/19 07:38 Labs: Abnormal Lab Results - Last 24 Hours (Table) 03/05/19 03/05/19 Range/Units 07:38 07:38 RBC 3.48 L (4.30-5.90) m/uL Hgb 9.6 L (13.0-17.5) gm/dL Hct 31.4 L (39.0-53.0) % MCHC 30.7 L (31.0-37.0) g/dL RDW 22.1 H (11.5-15.5) % Chloride 109 H (98-107) mmol/L Glucose 117 H (74-99) mg/dL ALT 20 L (21-72) U/L Total Protein 5.9 L (6.3-8.2) g/dL Assessment and Plan Assessment: Non-Hodgkin's lymphoma Probable obstructive sleep apnea Right anterior chest wall cellulitis Normochromic normocytic anemia Recent admission for sepsis and neutropenic fever Obesity History of tobacco abuse, quit December 2018 Hypertension Dyslipidemia Continue patient's home medications Monitor labs Chemotherapy per oncology GI and DVT prophylaxis Incentive spirometry and pulmonary hygiene Outpatient PSG Antibiotics per ID Patient seen and examined covering for Dr. Peña
--- NOTE | 2019-03-05 16:22 | P.PN ---
Subjective Progress Note Date: 03/05/19 Principal diagnosis: Hodgkins Lymphoma - Timed Chemotherapy No acute complaints, Day 2 of R-EPOCH Objective - Vital Signs Vital signs: Vital Signs Temp 97.4 F L 03/05/19 12:00 Pulse 90 03/05/19 12:00 Resp 17 03/05/19 12:00 BP 144/89 03/05/19 12:00 Pulse Ox 96 03/05/19 12:00 Intake & Output 03/04/19 03/05/19 03/05/19 18:59 06:59 18:59 Intake Total 150 1770 Output Total 600 Balance 150 1170 Intake: IV 150 Sodium Chloride 0.9% 1, 150 000 ml @ 75 mls/hr IV CONTINUOUS DA Rx#: [id number] Oral 1770 Output: Urine 600 Other: Voiding Method Toilet Toilet Urinal # Voids 3 - Exam Gen: Alert, NAD Head: NCNT Neck: Supple Lungs: CTA Bilateral Heart: Tachy, Reg Abdomen: S/ND/NT Ext: No Edema Neuro: No sensory or focal deficits - Labs CBC & Chem 7: 03/05/19 07:38 03/05/19 07:38 Labs: Abnormal Lab Results - Last 24 Hours (Table) 03/05/19 03/05/19 Range/Units 07:38 07:38 RBC 3.48 L (4.30-5.90) m/uL Hgb 9.6 L (13.0-17.5) gm/dL Hct 31.4 L (39.0-53.0) % MCHC 30.7 L (31.0-37.0) g/dL RDW 22.1 H (11.5-15.5) % Chloride 109 H (98-107) mmol/L Glucose 117 H (74-99) mg/dL ALT 20 L (21-72) U/L Total Protein 5.9 L (6.3-8.2) g/dL Assessment and Plan Plan: Hodgkin lymphoma of extranodal or solid organ site Continue the same for cycle 2, Day 2 of REPOCH. Labs daily Follow-up daily Cellulitis of chest wall Continue prescribed treatments, Infectious Disease consulted Radha LOVE
[2019-03-05] MEDS: FAMOTIDINE 20 MG/2 ML VIAL IV SCH (18:00)
[2019-03-05] MEDS: ONDANSETRON 16 MG in SODIUM CHLORIDE 0.9% 50 ML IVPB SCH (18:00)
[2019-03-05] MEDS: VINCRISTINE SULFATE IV SCH (22:21)
[2019-03-05] MEDS: DOXORUBICIN HCL IV SCH (22:21)
[2019-03-05] MEDS: [UNRECOGNIZED DRUG - OTHER] IV SCH (22:21)
[2019-03-05] MEDS: ETOPOSIDE IV SCH (22:21)
--- NOTE | 2019-03-06 00:19 | P.CON ---
Consult Note - . Consult date: 03/05/19 Assessment/Plan:: 54-year-old male with past medical history of Hodgkin lymphoma and was recently hospitalized February 19 through the where he was treated for neutropenic fever and cellulitis of the right chest wall. Patient was stabilized and discharged home and continued on Omnicef. Patient has been brought into the hospital for cycle 2 R-EPOCH. Patient continues to have cellulitis to the right chest wall with large ulceration. He has been afebrile wild mild tachycardia. WBC 6.9, hemoglobin 9.6, platelet count 334. The creatinine is 1.03. Albumin 3.7. Patient has been continued on Omnicef and Bactroban will be added for wound care. Please see the consult note as dictated by nurse practitioner Piero Jenifer Yuridiamoncho. 54-year-old male known to the service because of the difficulty with his extravasated chemotherapy lesion to his right anterior chest wall. The patient was admitted for his next round of chemotherapy. [facility]'s last being seen the significant abnormalities to the right anterior chest wall are now much imp roved. 2 small areas of eschar still seen. Ulceration of the tissue is improving greatly. There is still some erythema and thickening to the tissue, but it is no longer tender and there is no drainage. He is receiving antibiotic therapy with Omnicef which we'll continue. Topical therapies with Bactroban which has been very helpful. If his PICC line can be wrapped he may shower with gentle soap such as Dial without scrubbing to try to gently remove an exfoliate the dry tissue to the right anterior chest wall. This occurs [id number] at this point in time it is not being utilized since he has a PICC line in the left arm. Once the tissue to the right anterior chest wall has further healed it is likely that the [id number] will be removed. Further healing is requested prior to removal of the port to ensure the site will heal after the intervention. Patient fortunately is doing relatively well this time and we can monitor.
[2019-03-06] MEDS: SALT AND SODA MOUTHWASH 1,000 ML PO SCH ×6 (00:53→23:36)
[2019-03-06] MEDS: SODIUM CHLORIDE 0.9% 1,000 ML IV SCH ×2 (04:00→13:46)
[2019-03-06 07:23] LABS: Anisocytosis Moderate; Basophils % (A) 0 %; Eosinophils % (A) 0 %; HCT 31.9 % (39.0-53.0); HGB 9.7 gm/dL (13.0-17.5); Hypochromasia Marked; Lymphocytes # (A) 0.6 k/uL (1.0-4.8); Lymphocytes % (A) 7 %; MCH 28.3 pg (25.0-35.0); MCHC 30.5 g/dL (31.0-37.0); MCV 92.7 fL (80.0-100.0); Macrocytosis Slight; Mean Platelet Volume 6.5; Monocytes # (A) 0.3 k/uL (0-1.0); Monocytes % (A) 3 %; Neutrophils # (A) 7.7 k/uL (1.3-7.7); Neutrophils % (A) 89 %; Platelet Count 349 k/uL (150-450); Poikilocytosis Moderate; RBC 3.44 m/uL (4.30-5.90); RDW 21.7 % (11.5-15.5); WBC 8.7 k/uL (3.8-10.6)
[2019-03-06 07:49] LABS: ALT 17 U/L (21-72); AST 21 U/L (17-59); Albumin 3.5 g/dL (3.5-5.0); Alkaline Phosphatase 84 U/L (38-126); Anion Gap 7 mmol/L; Blood Urea Nitrogen 25 mg/dL (9-20); Calcium 8.8 mg/dL (8.4-10.2); Carbon Dioxide 21 mmol/L (22-30); Chloride 113 mmol/L (98-107); Glucose 152 mg/dL (74-99); Potassium 4.6 mmol/L (3.5-5.1); Sodium 141 mmol/L (137-145); Total Bilirubin 0.4 mg/dL (0.2-1.3); Total Protein 5.6 g/dL (6.3-8.2)
[2019-03-06] MEDS: ALLOPURINOL 300 MG TAB PO SCH (08:05)
[2019-03-06] MEDS: METOPROLOL TARTRATE 25 MG TAB PO SCH ×2 (08:05→21:14)
[2019-03-06] MEDS: FUROSEMIDE 20 MG TAB PO SCH (08:05)
[2019-03-06] MEDS: predniSONE 20 MG TAB PO SCH ×2 (08:05→21:14)
[2019-03-06] MEDS: CEFDINIR 300 MG CAP PO SCH ×2 (09:03→21:14)
[2019-03-06] MEDS: FOLIC ACID 1 MG TAB PO SCH (09:03)
--- NOTE | 2019-03-06 10:56 | P.PN ---
Subjective Progress Note Date: 03/06/19 Principal diagnosis: DLBCL Chest wall cellulitis/wound Today is Day 3 of R-EPOCH. Tolerating well. No nausea, mucositis, or other complaints. Right chest wall wound and cellulitis healing very well. Overall feels much better. Objective - Vital Signs Vital signs: Vital Signs Temp 97.5 F L 03/06/19 08:00 Pulse 90 03/06/19 08:00 Resp 18 03/06/19 08:00 BP 116/70 03/06/19 08:00 Pulse Ox 96 03/06/19 08:00 Intake & Output 03/05/19 03/06/19 03/06/19 18:59 06:59 18:59 Intake Total 600 1180 Output Total 1500 Balance 600 -320 Intake: IV 600 Sodium Chloride 0.9% 1, 600 000 ml @ 75 mls/hr IV CONTINUOUS DA Rx#: [id number] Oral 1180 Output: Urine 1500 Other: Voiding Method Toilet Urinal - Exam General: NAD. HEENT: Mucosa moist. Neck: Supple Lungs: CTA-B Heart: Regular rate Abd: Soft, nontender. MSK: Moving all 4 extremities spontaneously Neuro: A&O x 3 Extremities: No LE edema Skin: No jaundice. Right chest wall lesion/wound packed, with surrounding eryt daxa. Per pt improving. Psych: Appropriate affect. - Labs CBC & Chem 7: 03/06/19 06:45 03/06/19 06:45 Labs: Abnormal Lab Results - Last 24 Hours (Table) 03/06/19 03/06/19 Range/Units 06:45 06:45 RBC 3.44 L (4.30-5.90) m/uL Hgb 9.7 L (13.0-17.5) gm/dL Hct 31.9 L (39.0-53.0) % MCHC 30.5 L (31.0-37.0) g/dL RDW 21.7 H (11.5-15.5) % Lymphocytes # 0.6 L (1.0-4.8) k/uL Chloride 113 H (98-107) mmol/L Carbon Dioxide 21 L (22-30) mmol/L BUN 25 H (9-20) mg/dL Glucose 152 H (74-99) mg/dL ALT 17 L (21-72) U/L Total Protein 5.6 L (6.3-8.2) g/dL Assessment and Plan Assessment: 1. DLBCL 2. Right chest wall cellulitis/wound due to prior chemotherapy extravasation 3. HTN 4. HLP Plan: Mr. Lamb is a very pleasant 54 yo male with a history of hypertension and hyperlipidemia as well as newly diagnosed non-Hodgkin's lymphoma here for cycle 2 of REPOCH. 1. NHL - Currently day 3 of cycle 2 of R-EPOCH. Tolerating chemotherapy very well. No significant side effects. Continue with chemotherapy as scheduled. 2. Right chest wall cellulitis/wound - Due to chemotherapy extravasation. Very slowly healing. ID consulted, appreciate rec's. Continue oral antibiotics for now. Per pt, healing and not bothersome at this time. 3. Normocytic anemia - Likely due to chemotherapy and lymphoma. Stable Hgb 9's. Monitor for now with supportive transfusion for Hgb <7 or symptomatic anemia. 4. HTN - Currently controlled on oral Lopressor. Continue to monitor. 5. HLP - Controlled. Currently no need for medications.
--- NOTE | 2019-03-06 15:13 | PN ---
PROGRESS NOTE SUBJECTIVE: A 54-year-old white male who is on chemotherapy therapy day 2 for non-Hodgkin's lymphoma, tolerating well. His right chest wall wound cellulitis is healing very well. Feels much better. No chest pain, shortness of breath. Vital signs reviewed. Labs are reviewed. CARDIOVASCULAR: S1, S2. Lungs are clear. INTEGUMENT: Right upper chest shows some redness 5 x 5 cm. HEMATOLOGY: Negative Homans. GI soft. ENDOCRINE: BMI is over 30. Hemoglobin 9.7. ASSESSMENT: 1. Hypertension. 2. DLCBL. 3. Right chest cellulitis all improving. Continue current treatments. Home medicines will be reordered. MMODL / IJN: [id number] /
[2019-03-06] MEDS: FAMOTIDINE 20 MG/2 ML VIAL IV SCH (21:13)
[2019-03-06] MEDS: ONDANSETRON 16 MG in SODIUM CHLORIDE 0.9% 50 ML IVPB SCH (21:14)
--- NOTE | 2019-03-06 21:33 | P.PN ---
Subjective Progress Note Date: 03/06/19 54-year-old male with past medical history of Hodgkin lymphoma and was recently hospitalized February 19 through the where he was treated for neutropenic fever and cellulitis of the right chest wall. Patient was stabilized and discharged home and continued on Omnicef. Patient has been brought into the hospital for cycle 2 R-EPOCH. Patient continues to have cellulitis to the right chest wall with large ulceration. He has been afebrile wild mild tachycardia. WBC 6.9, hemoglobin 9.6, platelet count 334. The creatinine is 1.03. Albumin 3.7. Patient has been continued on Omnicef and Nayan troban will be added for wound care. 03/06/2019 patient is feeling relatively well today. Denying any difficulties with his current chemotherapy. Denies fevers or chills. Anterior chest wall is without significant pain or discomfort. Objective - Vital Signs Vital signs: Vital Signs Temp 98.7 F 03/06/19 20:00 Pulse 100 03/06/19 20:00 Resp 18 03/06/19 20:00 BP 134/74 03/06/19 20:00 Pulse Ox 95 03/06/19 20:00 Intake & Output 03/06/19 03/06/19 03/07/19 06:59 18:59 06:59 Intake Total 1180 792 Output Total 1500 Balance -320 792 Intake: IV 600 Sodium Chloride 0.9% 1, 600 000 ml @ 75 mls/hr IV CONTINUOUS DA Rx#: [id number] Intake, IV Titration 192 Amount Etoposide 120 mg 192 DOXOrubicin HCL 24 mg vinCRIStine SULFATE 1 mg In Sodium Chloride 0.9% 500 ml 500 ml @ 21.625 mls/hr IV Q24H DA Rx#: [id number] Oral 1180 Output: Urine 1500 Other: Voiding Method Toilet Urinal # Voids 2 - Exam Gen: This is a 54-year-old male. Patient is resting in bed and appears to be comfortable and in no acute distress. HEENT: Head is atraumatic, normocephalic. Pupils equal, round. Sclerae is anicteric. Oral mucous membranes are moist. No thrush noted. NECK: Supple. No JVD. No lymphadenopathy. No thyromegaly. LUNGS: Clear to auscultation. No wheezes or rhonchi. No intercostal retractions. HEART: Regular rate and rhythm. No murmur. Patient has large area on the right anterior chest with erythema and some eschar, the inferior eschar is manipulated today and when it unroofs there is complete healing of the tissue beneath. No significant drainage. ABDOMEN: Soft. Bowel sounds are present. No masses. No tenderness. EXTREMITIES: Trace bilateral pedal edema. No calf tenderness. Dorsalis pedis +2 bilaterally. NEUROLOGICAL: Patient is awake, alert and oriented x3. - Labs CBC & Chem 7: 03/06/19 06:45 03/06/19 06:45 Labs: Abnormal Lab Results - Last 24 Hours (Table) 03/06/19 03/06/19 Range/Units 06:45 06:45 RBC 3.44 L (4.30-5.90) m/uL Hgb 9.7 L (13.0-17.5) gm/dL Hct 31.9 L (39.0-53.0) % MCHC 30.5 L (31.0-37.0) g/dL RDW 21.7 H (11.5-15.5) % Lymphocytes # 0.6 L (1.0-4.8) k/uL Chloride 113 H (98-107) mmol/L Carbon Dioxide 21 L (22-30) mmol/L BUN 25 H (9-20) mg/dL Glucose 152 H (74-99) mg/dL ALT 17 L (21-72) U/L Total Protein 5.6 L (6.3-8.2) g/dL Laboratory Results WBC 8.7 k/uL (3.8-10.6) 03/06/19 06:45 RBC 3.44 m/uL (4.30-5.90) L 03/06/19 06:45 Hgb 9.7 gm/dL (13.0-17.5) L 03/06/19 06:45 Hct 31.9 % (39.0-53.0) L 03/06/19 06:45 MCV 92.7 fL (80.0-100.0) 03/06/19 06:45 MCH 28.3 pg (25.0-35.0) 03/06/19 06:45 MCHC 30.5 g/dL (31.0-37.0) L 03/06/19 06:45 RDW 21.7 % (11.5-15.5) H 03/06/19 06:45 Plt Count 349 k/uL (150-450) 03/06/19 06:45 Neutrophils % 89 % 03/06/19 06:45 Lymphocytes % 7 % 03/06/19 06:45 Monocytes % 3 % 03/06/19 06:45 Eosinophils % 0 % 03/06/19 06:45 Basophils % 0 % 03/06/19 06:45 Neutrophils # 7.7 k/uL (1.3-7.7) 03/06/19 06:45 Lymphocytes # 0.6 k/uL (1.0-4.8) L 03/06/19 06:45 Monocytes # 0.3 k/uL (0-1.0) 03/06/19 06:45 Eosinophils # 0.0 k/uL (0-0.7) 03/06/19 06:45 Basophils # 0.0 k/uL (0-0.2) 03/06/19 06:45 Hypochromasia Marked 03/06/19 06:45 Poikilocytosis Moderate 03/06/19 06:45 Anisocytosis Moderate 03/06/19 06:45 Macrocytosis Slight 03/06/19 06:45 PT 10.2 sec (9.0-12.0) 03/04/19 08:40 INR 0.9 (<1.2) 03/04/19 08:40 Sodium 141 mmol/L (137-145) 03/06/19 06:45 Potassium 4.6 mmol/L (3.5-5.1) 03/06/19 06:45 Chloride 113 mmol/L (98-107) H 03/06/19 06:45 Carbon Dioxide 21 mmol/L (22-30) L 03/06/19 06:45 Anion Gap 7 mmol/L 03/06/19 06:45 BUN 25 mg/dL (9-20) H 03/06/19 06:45 Creatinine 0.99 mg/dL (0.66-1.25) 03/06/19 06:45 Est GFR (CKD-EPI)AfAm >90 (>60 ml/min/1.73 sqM) 03/06/19 06:45 Est GFR (CKD-EPI)NonAf 85 (>60 ml/min/1.73 sqM) 03/06/19 06:45 Glucose 152 mg/dL (74-99) H 03/06/19 06:45 Uric Acid 5.0 mg/dL (3.5-8.5) 03/06/19 06:45 Calcium 8.8 mg/dL (8.4-10.2) 03/06/19 06:45 Total Bilirubin 0.4 mg/dL (0.2-1.3) 03/06/19 06:45 AST 21 U/L (17-59) 03/06/19 06:45 ALT 17 U/L (21-72) L 03/06/19 06:45 Alkaline Phosphatase 84 U/L (38-126) 03/06/19 06:45 Total Protein 5.6 g/dL (6.3-8.2) L 03/06/19 06:45 Albumin 3.5 g/dL (3.5-5.0) 03/06/19 06:45 Assessment and Plan (1) Pancytopenia Current Visit: No Status: Acute Code(s): D61.818 - OTHER PANCYTOPENIA SNOMED Code(s): 436514757 (2) Extravasation of vesicant antineoplastic chemotherapy, subsequent encounter Narrative/Plan: 54-year-old male known to the service because of the difficulty with his extravasated chemotherapy lesion to his right anterior chest wall. The patient was admitted for his next round of chemotherapy. [facility] last being seen the significant abnormalities to the right anterior chest wall are now much improved. 2 small areas of eschar still seen. Ulceration of the tissue is improving greatly. There is still some erythema and thickening to the tissue, but it is no longer tender and there is no drainage. He is receiving antibiotic therapy with Omnicef which we'll continue. Topical therapies with Bactroban which has been very helpful. If his PICC line can be wrapped he may shower with gentle soap such as Dial without scrubbing to try to gently remove an exfoliate the dry tissue to the right anterior chest wall. This occurs [id number]-t-Cexz at this point in time it is not being utilized since he has a PICC line in the left arm. Once the tissue to the right anterior chest wall has further healed it is likely that the Mknega-w-Afux will be removed. Further healing is requested prior to removal of the port to ensure the site will heal after the intervention. 03/06/2019 patient is feeling slightly better today. There has been no new findings to the right anterior chest wall. The inferior eschar actually is unroofed with evidence complete healing beneath. Upper eschar is still fully attach. The area of erythema is well-defined and not tender. The Miwxpq-a-Wyvu that is present in this area is without tenderness. Continue oral by therapy in the Bactroban is requested to be applied to the area twice per day. Current Visit: Yes Status: Acute Code(s): T80.810D - EXTRAVASATION OF VESICANT ANTINEOPLASTIC CHEMOTHERAPY, SUBS SNOMED Code(s): 028254614
[2019-03-06] MEDS: VINCRISTINE SULFATE IV SCH (21:50)
[2019-03-06] MEDS: ETOPOSIDE IV SCH (21:50)
[2019-03-06] MEDS: DOXORUBICIN HCL IV SCH (21:50)
[2019-03-06] MEDS: [UNRECOGNIZED DRUG - OTHER] IV SCH (21:50)
[2019-03-06] MEDS: MUPIROCIN 2% OINT 22 GM TUBE TOPICAL SCH (23:07)
[2019-03-07] MEDS: SODIUM CHLORIDE 0.9% 1,000 ML IV SCH ×2 (03:59→17:22)
[2019-03-07] MEDS: SALT AND SODA MOUTHWASH 1,000 ML PO SCH ×5 (06:15→23:07)
[2019-03-07] MEDS: ALLOPURINOL 300 MG TAB PO SCH (07:54)
[2019-03-07] MEDS: FOLIC ACID 1 MG TAB PO SCH (07:55)
[2019-03-07] MEDS: predniSONE 20 MG TAB PO SCH ×2 (07:55→20:48)
[2019-03-07] MEDS: CEFDINIR 300 MG CAP PO SCH ×2 (07:55→20:49)
[2019-03-07] MEDS: METOPROLOL TARTRATE 25 MG TAB PO SCH ×2 (07:55→20:49)
[2019-03-07] MEDS: FUROSEMIDE 20 MG TAB PO SCH (07:55)
[2019-03-07] MEDS: MUPIROCIN 2% OINT 22 GM TUBE TOPICAL SCH ×3 (07:56→21:44)
--- NOTE | 2019-03-07 10:18 | P.PN ---
Subjective Progress Note Date: 03/07/19 Principal diagnosis: DLBCL Chest wall cellulitis/wound Today is Day 4 of R-EPOCH. Tolerating well. No nausea, mucositis, or other complaints. Right chest wall wound and cellulitis healing very well, drying and crusting over with some peeling today. Overall feels much better. No new complaints today. Objective - Vital Signs Vital signs: Vital Signs Temp 98.1 F 03/07/19 04:00 Pulse 71 03/07/19 04:00 Resp 16 03/07/19 04:00 BP 135/78 03/07/19 04:00 Pulse Ox 96 03/07/19 04:00 Intake & Output 03/06/19 03/07/19 03/07/19 18:59 06:59 18:59 Intake Total 792 Balance 792 Intake: IV 600 Sodium Chloride 0.9% 1, 600 000 ml @ 75 mls/hr IV CONTINUOUS DA Rx#: [id number] Intake, IV Titration 192 Amount Etoposide 120 mg 192 DOXOrubicin HCL 24 mg vinCRIStine SULFATE 1 mg In Sodium Chloride 0.9% 500 ml 500 ml @ 21.625 mls/hr IV Q24H DA Rx#: [id number] Other: Voiding Method Toilet Urinal # Voids 2 - Exam General: NAD. HEENT: Mucosa moist. Neck: Supple. Lungs: CTA-B. Heart: Regular rate. Abd: Soft, nontender. MSK: Moving all 4 extremities spontaneously. Neuro: A&O x 3. Extremities: No LE edema. Skin: No jaundice. Right chest wall lesion/wound drying and crusting over with some peeling today, and improved surrounding erythema. Psych: Appropriate affect. - Labs CBC & Chem 7: 03/06/19 06:45 03/06/19 06:45 Assessment and Plan Assessment: 1. Aggressive NHL 2. Right chest wall cellulitis/wound due to prior chemotherapy extravasation 3. HTN 4. HLP Plan: Mr. Lamb is a very pleasant 54 yo male with a history of hypertension and hyperlipidemia as well as newly diagnosed non-Hodgkin's lymphoma here for cycle 2 of REPOCH. 1. NHL - Currently day 4 of cycle 2 of R-EPOCH. Tolerating chemotherapy very well. No significant side effects. Continue with chemotherapy as scheduled. 2. Right chest wall cellulitis/wound - Due to chemotherapy extravasation. Very slowly healing. ID consulted, appreciate rec's. Continue oral antibiotics for now. Per pt, healing and not bothersome at this time. 3. Normocytic anemia - Likely due to chemotherapy and lymphoma. Stable Hgb 9's. Monitor for now with supportive transfusion for Hgb <7 or symptomatic anemia. 4. HTN - Currently controlled on oral Lopressor. Continue to monitor. 5. HLP - Controlled. Currently no need for medications.
[2019-03-07 11:44] LABS: Anisocytosis Moderate; Basophils % (A) 0 %; Eosinophils % (A) 1 %; HCT 33.6 % (39.0-53.0); Hypochromasia Marked; Lymphocytes # (A) 0.6 k/uL (1.0-4.8); Lymphocytes % (A) 7 %; MCHC 29.8 g/dL (31.0-37.0); MCV 90.6 fL (80.0-100.0); Macrocytosis Slight; Mean Platelet Volume 6.7; Monocytes # (A) 0.5 k/uL (0-1.0); Monocytes % (A) 6 %; Neutrophils # (A) 7.6 k/uL (1.3-7.7); Neutrophils % (A) 87 %; Platelet Count 425 k/uL (150-450); Poikilocytosis Moderate; RBC 3.71 m/uL (4.30-5.90); RDW 22.3 % (11.5-15.5); WBC 8.8 k/uL (3.8-10.6)
[2019-03-07 11:54] LABS: ALT 30 U/L (21-72); AST 28 U/L (17-59); Albumin 3.7 g/dL (3.5-5.0); Alkaline Phosphatase 77 U/L (38-126); Anion Gap 7 mmol/L; Blood Urea Nitrogen 24 mg/dL (9-20); Calcium 8.6 mg/dL (8.4-10.2); Carbon Dioxide 23 mmol/L (22-30); Chloride 111 mmol/L (98-107); Glucose 105 mg/dL (74-99); Potassium 4.6 mmol/L (3.5-5.1); Sodium 141 mmol/L (137-145); Total Bilirubin 0.6 mg/dL (0.2-1.3); Total Protein 5.7 g/dL (6.3-8.2); Uric Acid 5.1 mg/dL (3.5-8.5)
[2019-03-07] MEDS: ONDANSETRON 16 MG in SODIUM CHLORIDE 0.9% 50 ML IVPB SCH (20:48)
[2019-03-07] MEDS: FAMOTIDINE 20 MG/2 ML VIAL IV SCH (20:49)
[2019-03-07] MEDS: [UNRECOGNIZED DRUG - OTHER] IV SCH (21:42)
[2019-03-07] MEDS: ETOPOSIDE IV SCH (21:42)
[2019-03-07] MEDS: DOXORUBICIN HCL IV SCH (21:42)
[2019-03-07] MEDS: VINCRISTINE SULFATE IV SCH (21:42)
--- NOTE | 2019-03-07 23:54 | PN ---
PROGRESS NOTE SUBJECTIVE: 54-year-old white male with lymphoma and extravasation of chemo on his right chest, which is improved redness, decreased redness, swelling. Cardiovascular S1, S2. Lungs clear. GI soft. ENDOCRINE: BMI is over 40. ASSESSMENT: 1. Non-Hodgkin's lymphoma. 2. Cellulitis of the right chest. Continue current treatments. 3. Asthma. Continue with current treatments. Monitor cell counts. MMODL / IJN: [id number] /
[2019-03-08] MEDS: SALT AND SODA MOUTHWASH 1,000 ML PO SCH ×5 (06:35→23:07)
[2019-03-08 09:14] LABS: ALT 34 U/L (21-72); AST 31 U/L (17-59); Albumin 3.5 g/dL (3.5-5.0); Alkaline Phosphatase 73 U/L (38-126); Anion Gap 7 mmol/L; Blood Urea Nitrogen 22 mg/dL (9-20); Carbon Dioxide 23 mmol/L (22-30); Chloride 112 mmol/L (98-107); Glucose 110 mg/dL (74-99); Potassium 4.3 mmol/L (3.5-5.1); Sodium 142 mmol/L (137-145); Total Bilirubin 0.6 mg/dL (0.2-1.3); Total Protein 5.5 g/dL (6.3-8.2); Uric Acid 4.9 mg/dL (3.5-8.5)
[2019-03-08 09:18] LABS: Anisocytosis Moderate; Basophils % (A) 0 %; Eosinophils # (A) 0.1 k/uL (0-0.7); Eosinophils % (A) 1 %; HCT 32.3 % (39.0-53.0); HGB 10.1 gm/dL (13.0-17.5); Hypochromasia Marked; Lymphocytes # (A) 0.5 k/uL (1.0-4.8); Lymphocytes % (A) 11 %; MCH 28.4 pg (25.0-35.0); MCHC 31.2 g/dL (31.0-37.0); MCV 91.2 fL (80.0-100.0); Macrocytosis Slight; Mean Platelet Volume 6.8; Monocytes # (A) 0.2 k/uL (0-1.0); Monocytes % (A) 3 %; Neutrophils # (A) 4.2 k/uL (1.3-7.7); Neutrophils % (A) 85 %; Platelet Count 372 k/uL (150-450); Poikilocytosis Moderate; RBC 3.54 m/uL (4.30-5.90); RDW 21.6 % (11.5-15.5)
[2019-03-08] MEDS: SODIUM CHLORIDE 0.9% 1,000 ML IV SCH ×2 (10:05→20:25)
[2019-03-08] MEDS: CEFDINIR 300 MG CAP PO SCH ×2 (10:05→20:33)
[2019-03-08] MEDS: FUROSEMIDE 20 MG TAB PO SCH (10:06)
[2019-03-08] MEDS: METOPROLOL TARTRATE 25 MG TAB PO SCH ×2 (10:06→20:33)
[2019-03-08] MEDS: ALLOPURINOL 300 MG TAB PO SCH (10:06)
[2019-03-08] MEDS: predniSONE 20 MG TAB PO SCH ×2 (10:06→22:31)
[2019-03-08] MEDS: MUPIROCIN 2% OINT 22 GM TUBE TOPICAL SCH ×3 (10:07→22:30)
[2019-03-08] MEDS: FOLIC ACID 1 MG TAB PO SCH (10:07)
--- NOTE | 2019-03-08 11:49 | P.PN ---
Subjective Progress Note Date: 03/08/19 This is a 54-year-old gentleman who presented to the hospital for chemotherapy for Hodgkin's lymphoma. The patient has known cellulitis to the right chest wall with large ulceration due to extravasated chemotherapy. The patient was recently hospitalized with neutropenic fever. He states his right chest wall wound is improving slowly. He is wondering how much more chemotherapy he needs. These questions are deferred to the oncology team. The patient does have a history of COPD and tobacco use. All the patient has probable obstructive sleep apnea. 03/08/2019 finishing up chemo at 9 PM tonight. Ambulating in room, tolerated exertion well, no nausea vomiting or diarrhea. Denies chest pain, palpitations or shortness of breath. Afebrile. WBC 5, hemoglobin 10.1, platelets 372, neutrophils 85. Objective - Vital Signs Vital signs: Vital Signs Temp 97.5 F L 03/08/19 07:57 Pulse 80 03/08/19 07:57 Resp 16 03/08/19 07:57 BP 129/82 03/08/19 07:57 Pulse Ox 96 03/08/19 07:57 Intake & Output 03/07/19 03/08/19 03/08/19 18:59 06:59 18:59 Intake Total 240 792 Output Total 900 800 900 Balance -660 -8 -900 Intake: IV 600 Sodium Chloride 0.9% 1, 600 000 ml @ 75 mls/hr IV CONTINUOUS DA Rx#: [id number] Intake, IV Titration 192 Amount Etoposide 120 mg 192 DOXOrubicin HCL 24 mg vinCRIStine SULFATE 1 mg In Sodium Chloride 0.9% 500 ml 500 ml @ 21.625 mls/hr IV Q24H DA Rx#: [id number] Oral 240 Output: Urine 900 800 900 Other: Voiding Method Toilet Toilet Toilet Urinal Urinal Urinal # Voids 3 2 - Exam Gen.: Patient is alert and oriented 3, no acute distress Cardiovascular: Regular rate and rhythm, S1/S2 Lungs: Diminished breath sounds bilaterally at the bases otherwise clear, right anterior chest wall abscess/cellulitis Abdomen: Soft nontender nondistended positive bowel sounds SKIN: Right chest wall crusty, dry, no drainage with improving erythema Extremities: Trace edema - Labs CBC & Chem 7: 03/08/19 07:44 03/08/19 07:44 Labs: Abnormal Lab Results - Last 24 Hours (Table) 03/07/19 03/07/19 03/08/19 Range/Units 10:33 10:33 07:44 RBC 3.71 L 3.54 L (4.30-5.90) m/uL Hgb 10.0 L 10.1 L (13.0-17.5) gm/dL Hct 33.6 L 32.3 L (39.0-53.0) % MCHC 29.8 L (31.0-37.0) g/dL RDW 22.3 H 21.6 H (11.5-15.5) % Lymphocytes # 0.6 L 0.5 L (1.0-4.8) k/uL Chloride 111 H (98-107) mmol/L BUN 24 H (9-20) mg/dL Glucose 105 H (74-99) mg/dL Calcium (8.4-10.2) mg/dL Total Protein 5.7 L (6.3-8.2) g/dL 03/08/19 Range/Units 07:44 RBC (4.30-5.90) m/uL Hgb (13.0-17.5) gm/dL Hct (39.0-53.0) % MCHC (31.0-37.0) g/dL RDW (11.5-15.5) % Lymphocytes # (1.0-4.8) k/uL Chloride 112 H (98-107) mmol/L BUN 22 H (9-20) mg/dL Glucose 110 H (74-99) mg/dL Calcium 8.0 L (8.4-10.2) mg/dL Total Protein 5.5 L (6.3-8.2) g/dL Assessment and Plan Assessment: Non-Hodgkin's lymphoma Probable obstructive sleep apnea Right anterior chest wall cellulitis Normochromic normocytic anemia Recent admission for sepsis and neutropenic fever Obesity History of tobacco abuse, quit December 2018 Hypertension Dyslipidemia Normocytic anemia, suspect due to chemotherapy, lymphoma Plan: Continue on current medication regime ,monitoring and symptomatic treatment. Antibiotics/Wound Care as per ID .Aggressive pulmonary toileting with incentive spirometer reinforced. Ambulating in room, tolerating exertion well. GI and DVT prophylaxis in place. As mentioned above comfort feeding chemotherapy tonight with discharge planning in progress for tomorrow morning. Further recommendations to follow The impression and plan of care has been dictated as directed. : I performed a history and examination of this patient, discussed the same with the dictator. I agree with the dictator's note ,documented as a scribe. Any additional findings or plans will be noted.
--- NOTE | 2019-03-08 18:43 | P.PN ---
Subjective Progress Note Date: 03/08/19 Principal diagnosis: T-cell lymphoma, admission for cycle 2 EPOCH In follow-up today patient does not have any complaints. No oral irritation, nausea, vomiting, fevers, his right chest wall is doing significantly better, one of the scabs has come off, it is healed underneath, the induration had decreased in size and firmness, no abdominal pain, distention, his breathing is satisfactory at rest and with activity, patient is independently ambulatory, he denies constipation, diarrhea, bleeding, does c/o of mild swelling in the feet, no pain. Objective - Vital Signs Vital signs: Vital Signs Temp 97.7 F 03/08/19 16:19 Pulse 82 03/08/19 16:19 Resp 16 03/08/19 16:19 BP 123/83 03/08/19 16:19 Pulse Ox 96 03/08/19 16:19 Intake & Output 03/07/19 03/08/19 03/08/19 18:59 06:59 18:59 Intake Total 010 135 0745 Output Total 900 800 900 Balance -660 -8 300 Intake: IV 600 Sodium Chloride 0.9% 1, 600 000 ml @ 75 mls/hr IV CONTINUOUS DA Rx#: [id number] Intake, IV Titration 192 600 Amount Etoposide 120 mg 192 DOXOrubicin HCL 24 mg vinCRIStine SULFATE 1 mg In Sodium Chloride 0.9% 500 ml 500 ml @ 21.625 mls/hr IV Q24H DA Rx#: [id number] Sodium Chloride 0.9% 1, 600 000 ml @ 75 mls/hr IV CONTINUOUS DA Rx#: [id number] Oral 240 600 Output: Urine 900 800 900 Other: Voiding Method Toilet Toilet Toilet Urinal Urinal Urinal # Voids 3 2 - Constitutional General appearance: Present: average body habitus, cooperative, no acute distress - EENT Eyes: Present: anicteric sclerae, EOMI, dentition normal ENT: Present: hearing grossly normal, normal oropharynx - Respiratory Respiratory: bilateral: CTA - Cardiovascular Rhythm: regular Heart sounds: normal: S1, S2 Abnormal Heart Sounds: Absent: systolic murmur, diastolic murmur, rub, S3 Gallop, S4 Gallop, click, other - Peripheral edema leg Peripheral Edema: bilateral: Trace - Gastrointestinal General gastrointestinal: Present: normal bowel sounds, soft. Absent: absent bowel sounds, decreased bowel sounds, distended, hepatomegaly, hyperactive bowel sounds, organomegaly, rigid, scaphoid, splenomegaly, tenderness, umbilical h ernia, ventral hernia - Integumentary Integumentary: Present: pale - Neurologic Neurologic: Present: CNII-XII intact - Musculoskeletal Musculoskeletal: Present: strength equal bilaterally - Psychiatric Psychiatric: Present: A&O x's 3, appropriate affect, intact judgment & insight - Labs CBC & Chem 7: 03/08/19 07:44 03/08/19 07:44 Labs: Abnormal Lab Results - Last 24 Hours (Table) 03/08/19 03/08/19 Range/Units 07:44 07:44 RBC 3.54 L (4.30-5.90) m/uL Hgb 10.1 L (13.0-17.5) gm/dL Hct 32.3 L (39.0-53.0) % RDW 21.6 H (11.5-15.5) % Lymphocytes # 0.5 L (1.0-4.8) k/uL Chloride 112 H (98-107) mmol/L BUN 22 H (9-20) mg/dL Glucose 110 H (74-99) mg/dL Calcium 8.0 L (8.4-10.2) mg/dL Total Protein 5.5 L (6.3-8.2) g/dL Assessment and Plan (1) Hodgkin lymphoma of extranodal or solid organ site Narrative/Plan: Admitted for cycle 2 of EPOCH. Home medications reconciled Labs daily Follow-up daily Supportive medications ordered GI and DVT prophylaxis Current Visit: Yes Status: Acute Priority: High Code(s): C81.99 - HODGKIN LYMPHOMA, UNSP, EXTRANODAL AND SOLID ORGAN SITES SNOMED Code(s): 34657254 (2) Cellulitis of chest wall Narrative/Plan: Continue prescribed treatments, Infectious Disease consulted. Doing very well Current Visit: Yes Status: Acute Priority: Medium Code(s): L03.313 - CELLULITIS OF CHEST WALL SNOMED Code(s): 90954649 Plan: Plan is for discharge in the a.m. as chemotherapy will be complete later on tonight Please note that I incorrectly documented the regimen initially. This is NOT a Rituxan containing regimen. It is EPOCH (adriamycin, etoposide, vincirstine, prednisone, cytoxan)
[2019-03-08] MEDS ORDERED: CYCLOPHOSPHAMIDE 1,800 MG in SODIUM CHLORIDE 0.9% 250 ML IV ONE (21:00)
[2019-03-08] MEDS: FAMOTIDINE 20 MG/2 ML VIAL IV SCH (21:41)
[2019-03-08] MEDS: ONDANSETRON 16 MG in SODIUM CHLORIDE 0.9% 50 ML IVPB SCH (21:41)
--- NOTE | 2019-03-08 22:43 | P.PN ---
Subjective Progress Note Date: 03/08/19 54-year-old male with past medical history of Hodgkin lymphoma and was recently hospitalized February 19 through the where he was treated for neutropenic fever and cellulitis of the right chest wall. Patient was stabilized and discharged home and continued on Omnicef. Patient has been brought into the hospital for cycle 2 R-EPOCH. Patient continues to have cellulitis to the right chest wall with large ulceration. He has been afebrile wild mild tachycardia. WBC 6.9, hemoglobin 9.6, platelet count 334. The creatinine is 1.03. Albumin 3.7. Patient has been continued on Omnicef and Nayan troban will be added for wound care. 03/06/2019 patient is feeling relatively well today. Denying any difficulties with his current chemotherapy. Denies fevers or chills. Anterior chest wall is without significant pain or discomfort. 03/08/2019 patient is completing his course of chemotherapy is feeling somewhat better. He is impressive much better his right anterior chest wall feels. He is worried about utilizing his PICC line at home. Objective - Vital Signs Vital signs: Vital Signs Temp 97.9 F 03/08/19 19:57 Pulse 88 03/08/19 19:57 Resp 22 03/08/19 19:57 BP 138/84 03/08/19 19:57 Pulse Ox 98 03/08/19 19:57 Intake & Output 03/08/19 03/08/19 03/09/19 06:59 18:59 06:59 Intake Total 792 1200 Output Total 800 900 Balance -8 300 Intake: IV 600 Sodium Chloride 0.9% 1, 600 000 ml @ 75 mls/hr IV CONTINUOUS DA Rx#: [id number] Intake, IV Titration 192 600 Amount Etoposide 120 mg 192 DOXOrubicin HCL 24 mg vinCRIStine SULFATE 1 mg In Sodium Chloride 0.9% 500 ml 500 ml @ 21.625 mls/hr IV Q24H DA Rx#: [id number] Sodium Chloride 0.9% 1, 600 000 ml @ 75 mls/hr IV CONTINUOUS DA Rx#: [id number] Oral 600 Output: Urine 800 900 Other: Voiding Method Toilet Toilet Urinal Urinal # Voids 2 - Exam Gen: This is a 54-year-old male. Patient is resting in bed and appears to be comfortable and in no acute distress. HEENT: Head is atraumatic, normocephalic. Pupils equal, round. Sclerae is anicteric. Oral mucous membranes are moist. No thrush noted. NECK: Supple. No JVD. No lymphadenopathy. No thyromegaly. LUNGS: Clear to auscultation. No wheezes or rhonchi. No intercostal retractions. HEART: Regular rate and rhythm. No murmur. Patient has large area on the right anterior chest with erythema and some eschar, the inferior eschar is complete healing of the tissue beneath. No significant drainage.superioir eschar with some unroofing and minimal bleeding. ABDOMEN: Soft. Bowel sounds are present. No masses. No tenderness. EXTREMITIES: Trace bilateral pedal edema. No calf tenderness. Dorsalis pedis +2 bilaterally. NEUROLOGICAL: Patient is awake, alert and oriented x3. - Labs CBC & Chem 7: 03/08/19 07:44 03/08/19 07:44 Labs: Abnormal Lab Results - Last 24 Hours (Table) 03/08/19 03/08/19 Range/Units 07:44 07:44 RBC 3.54 L (4.30-5.90) m/uL Hgb 10.1 L (13.0-17.5) gm/dL Hct 32.3 L (39.0-53.0) % RDW 21.6 H (11.5-15.5) % Lymphocytes # 0.5 L (1.0-4.8) k/uL Chloride 112 H (98-107) mmol/L BUN 22 H (9-20) mg/dL Glucose 110 H (74-99) mg/dL Calcium 8.0 L (8.4-10.2) mg/dL Total Protein 5.5 L (6.3-8.2) g/dL Laboratory Results WBC 5.0 k/uL (3.8-10.6) 03/08/19 07:44 RBC 3.54 m/uL (4.30-5.90) L 03/08/19 07:44 Hgb 10.1 gm/dL (13.0-17.5) L 03/08/19 07:44 Hct 32.3 % (39.0-53.0) L 03/08/19 07:44 MCV 91.2 fL (80.0-100.0) 03/08/19 07:44 MCH 28.4 pg (25.0-35.0) 03/08/19 07:44 MCHC 31.2 g/dL (31.0-37.0) 03/08/19 07:44 RDW 21.6 % (11.5-15.5) H 03/08/19 07:44 Plt Count 372 k/uL (150-450) 03/08/19 07:44 Neutrophils % 85 % 03/08/19 07:44 Lymphocytes % 11 % 03/08/19 07:44 Monocytes % 3 % 03/08/19 07:44 Eosinophils % 1 % 03/08/19 07:44 Basophils % 0 % 03/08/19 07:44 Neutrophils # 4.2 k/uL (1.3-7.7) 03/08/19 07:44 Lymphocytes # 0.5 k/uL (1.0-4.8) L 03/08/19 07:44 Monocytes # 0.2 k/uL (0-1.0) 03/08/19 07:44 Eosinophils # 0.1 k/uL (0-0.7) 03/08/19 07:44 Basophils # 0.0 k/uL (0-0.2) 03/08/19 07:44 Hypochromasia Marked 03/08/19 07:44 Poikilocytosis Moderate 03/08/19 07:44 Anisocytosis Moderate 03/08/19 07:44 Macrocytosis Slight 03/08/19 07:44 PT 10.2 sec (9.0-12.0) 03/04/19 08:40 INR 0.9 (<1.2) 03/04/19 08:40 Sodium 142 mmol/L (137-145) 03/08/19 07:44 Potassium 4.3 mmol/L (3.5-5.1) 03/08/19 07:44 Chloride 112 mmol/L (98-107) H 03/08/19 07:44 Carbon Dioxide 23 mmol/L (22-30) 03/08/19 07:44 Anion Gap 7 mmol/L 03/08/19 07:44 BUN 22 mg/dL (9-20) H 03/08/19 07:44 Creatinine 0.77 mg/dL (0.66-1.25) 03/08/19 07:44 Est GFR (CKD-EPI)AfAm >90 (>60 ml/min/1.73 sqM) 03/08/19 07:44 Est GFR (CKD-EPI)NonAf >90 (>60 ml/min/1.73 sqM) 03/08/19 07:44 Glucose 110 mg/dL (74-99) H 03/08/19 07:44 Uric Acid 4.9 mg/dL (3.5-8.5) 03/08/19 07:44 Calcium 8.0 mg/dL (8.4-10.2) L 03/08/19 07:44 Total Bilirubin 0.6 mg/dL (0.2-1.3) 03/08/19 07:44 AST 31 U/L (17-59) 03/08/19 07:44 ALT 34 U/L (21-72) 03/08/19 07:44 Alkaline Phosphatase 73 U/L (38-126) 03/08/19 07:44 Total Protein 5.5 g/dL (6.3-8.2) L 03/08/19 07:44 Albumin 3.5 g/dL (3.5-5.0) 03/08/19 07:44 Assessment and Plan (1) Pancytopenia Current Visit: No Status: Acute Code(s): D61.818 - OTHER PANCYTOPENIA SNOMED Code(s): 617385424 (2) Extravasation of vesicant antineoplastic chemotherapy, subsequent encounter Narrative/Plan: 54-year-old male known to the service because of the difficulty with his extravasated chemotherapy lesion to his right anterior chest wall. The patient was admitted for his next round of chemotherapy. [facility]'s last being seen the significant abnormalities to the right anterior chest wall are now much improved. 2 small areas of eschar still seen. Ulceration of the tissue is improving greatly. There is still some erythema and thickening to the tissue, but it is no longer tender and there is no drainage. He is receiving antibiotic therapy with Omnicef which we'll continue. Topical therapies with Bactroban which has been very helpful. If his PICC line can be wrapped he may shower with gentle soap such as Dial without scrubbing to try to gently remove an exfoliate the dry tissue to the right anterior chest wall. This occurs Ihrvzy-g-Izjr at this point in time it is not being utilized since he has a PICC line in the left arm. Once the tissue to the right anterior chest wall has further healed it is likely that the Izzchm-p-Rhky will be removed. Further healing is requested prior to removal of the port to ensure the site will heal after the intervention. 03/06/2019 patient is feeling slightly better today. There has been no new findings to the right anterior chest wall. The inferior eschar actually is unroofed with evidence complete healing beneath. Upper eschar is still fully attach. The area of erythema is well-defined and not tender. The Losbwm-k-Uzfe that is present in this area is without tenderness. Continue oral by therapy in the Bactroban is requested to be applied to the area twice per day. 03/08/2019 patient has further improvement of his status. Oral cephalosporin topical Bactroban being utilized with good outcome. We'll continue after his discharge. Current Visit: Yes Status: Acute Code(s): T80.810D - EXTRAVASATION OF VESICANT ANTINEOPLASTIC CHEMOTHERAPY, SUBS SNOMED Code(s): 713130036
[2019-03-09 01:27] VITALS: PULSE 80
[2019-03-09 04:50] VITALS: BP 142/89; RESP 18; TEMP 97.9
[2019-03-09] MEDS: SALT AND SODA MOUTHWASH 1,000 ML PO SCH (06:00)
[2019-03-09 08:24] LABS: Anisocytosis Moderate; Basophils % (A) 0 %; Eosinophils # (A) 0.1 k/uL (0-0.7); Eosinophils % (A) 2 %; HCT 30.9 % (39.0-53.0); HGB 9.4 gm/dL (13.0-17.5); Hypochromasia Marked; Lymphocytes # (A) 0.3 k/uL (1.0-4.8); Lymphocytes % (A) 8 %; MCH 27.8 pg (25.0-35.0); MCHC 30.5 g/dL (31.0-37.0); MCV 91.2 fL (80.0-100.0); Macrocytosis Slight; Monocytes # (A) 0.1 k/uL (0-1.0); Monocytes % (A) 3 %; Neutrophils # (A) 3.5 k/uL (1.3-7.7); Neutrophils % (A) 87 %; Platelet Count 319 k/uL (150-450); Poikilocytosis Moderate; RBC 3.38 m/uL (4.30-5.90); RDW 21.3 % (11.5-15.5); WBC 4.1 k/uL (3.8-10.6)
[2019-03-09 08:37] LABS: ALT 44 U/L (21-72); AST 31 U/L (17-59); Albumin 3.2 g/dL (3.5-5.0); Alkaline Phosphatase 65 U/L (38-126); Anion Gap 7 mmol/L; Blood Urea Nitrogen 22 mg/dL (9-20); Calcium 7.7 mg/dL (8.4-10.2); Carbon Dioxide 22 mmol/L (22-30); Chloride 112 mmol/L (98-107); Glucose 165 mg/dL (74-99); Potassium 4.3 mmol/L (3.5-5.1); Sodium 141 mmol/L (137-145); Total Bilirubin 0.6 mg/dL (0.2-1.3); Total Protein 5.1 g/dL (6.3-8.2); Uric Acid 4.6 mg/dL (3.5-8.5)
[2019-03-09] MEDS: SODIUM CHLORIDE 0.9% 1,000 ML IV SCH (08:49)
[2019-03-09] MEDS: FUROSEMIDE 20 MG TAB PO SCH (09:05)
[2019-03-09] MEDS: ALLOPURINOL 300 MG TAB PO SCH (09:05)
[2019-03-09] MEDS: METOPROLOL TARTRATE 25 MG TAB PO SCH (09:06)
[2019-03-09] MEDS: MUPIROCIN 2% OINT 22 GM TUBE TOPICAL SCH (09:06)
[2019-03-09] MEDS: CEFDINIR 300 MG CAP PO SCH (09:14)
[2019-03-09] MEDS: FOLIC ACID 1 MG TAB PO SCH (09:14)
--- NOTE | 2019-03-09 10:24 | P.PN ---
Subjective Progress Note Date: 03/09/19 This is a 54-year-old gentleman who presented to the hospital for chemotherapy for Hodgkin's lymphoma. The patient has known cellulitis to the right chest wall with large ulceration due to extravasated chemotherapy. The patient was recently hospitalized with neutropenic fever. He states his right chest wall wound is improving slowly. He is wondering how much more chemotherapy he needs. These questions are deferred to the oncology team. The patient does have a history of COPD and tobacco use. All the patient has probable obstructive sleep apnea. 03/08/2019 finishing up chemo at 9 PM tonight. Ambulating in room, tolerated exertion well, no nausea vomiting or diarrhea. Denies chest pain, palpitations or shortness of breath. Afebrile. WBC 5, hemoglobin 10.1, platelets 372, neutrophils 85. 03/09/2019 completed chemotherapy. Significant clinical improvement. Denies chest pain, palpitations or shortness of breath. Afebrile,VSS. Discharge planning in progress as per primary-oncology today. Objective - Vital Signs Vital signs: Vital Signs Temp 97.9 F 03/09/19 03:50 Pulse 80 03/09/19 03:50 Resp 18 03/09/19 03:50 BP 142/89 03/09/19 03:50 Pulse Ox 95 03/09/19 03:50 Intake & Output 03/08/19 03/09/19 03/09/19 18:59 06:59 18:59 Intake Total 1200 1140 Output Total 900 Balance 300 1140 Intake: IV 600 Sodium Chloride 0.9% 1, 600 000 ml @ 75 mls/hr IV CONTINUOUS DA Rx#: [id number] Intake, IV Titration 600 Amount Sodium Chloride 0.9% 1, 600 000 ml @ 75 mls/hr IV CONTINUOUS DA Rx#: [id number] Oral 600 540 Output: Urine 900 Other: Voiding Method Toilet Urinal Urinal # Voids 3 - Exam Gen.: Patient is alert and oriented 3, no acute distress Cardiovascular: Regular rate and rhythm, S1/S2 Lungs: Diminished bilateral bases, no rhonchi, crackles or wheezing Abdomen: Soft nontender nondistended positive bowel sounds SKIN: Right anterior chest wall crusty, dry, no drainage with improving erythema Extremities: Trace edema - Labs CBC & Chem 7: 03/09/19 06:59 03/09/19 06:59 Labs: Abnormal Lab Results - Last 24 Hours (Table) 03/08/19 03/08/19 03/09/19 Range/Units 07:44 07:44 06:59 RBC 3.54 L 3.38 L (4.30-5.90) m/uL Hgb 10.1 L 9.4 L (13.0-17.5) gm/dL Hct 32.3 L 30.9 L (39.0-53.0) % MCHC 30.5 L (31.0-37.0) g/dL RDW 21.6 H 21.3 H (11.5-15.5) % Lymphocytes # 0.5 L 0.3 L (1.0-4.8) k/uL Chloride 112 H (98-107) mmol/L BUN 22 H (9-20) mg/dL Glucose 110 H (74-99) mg/dL Calcium 8.0 L (8.4-10.2) mg/dL Total Protein 5.5 L (6.3-8.2) g/dL Assessment and Plan Assessment: Non-Hodgkin's lymphoma Probable obstructive sleep apnea Right anterior chest wall cellulitis Normochromic normocytic anemia Recent admission for sepsis and neutropenic fever Obesity History of tobacco abuse, quit December 2018 Hypertension Dyslipidemia Normocytic anemia, suspect due to chemotherapy, lymphoma Plan: Continue on current medication regime ,monitoring and symptomatic treatment. Discharge planning in progress for today as per primary-oncology. Maintained aggressive pulmonary toileting with incentive spirometer reinforced.Antibiotics/Wound Care as per ID. follow-up with PCP in one week. The impression and plan of care has been dictated as directed. : I performed a history and examination of this patient, discussed the same with the dictator. I agree with the dictator's note ,documented as a scribe. Any additional findings or plans will be noted.
--- NOTE | 2019-03-09 11:19 | P.DS ---
Providers Date of admission: 03/03/19 17:24 Expected date of discharge: 03/09/19 Attending physician: Dennys Zafar Consults: 03/04/19 19:57 Consult Physician Routine Consulting Provider: Randy Merchant Consult Reason/Comments: right chest wall cellulitis Do you want consulting provider notified?: Yes, Notify in am Consult Physician Routine Consulting Provider: Randy Leroy Consult Reason/Comments: medical management Do you want consulting provider notified?: Yes, Notify in am Primary care physician: Dennys Andrade - Discharge Diagnosis(es) (1) Hodgkin lymphoma of extranodal or solid organ site Current Visit: Yes Status: Acute Priority: High (2) Cellulitis of chest wall Current Visit: Yes Status: Acute Priority: Medium Hospital Course: 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 His hospitalization was unremarkable, only mild side effects of nausea, no fevers, vomiting, diarrhea or uncontrolled pain. He is anxious for discharge. Procedures: PICC line insertion Patient Condition at Discharge: Stable Plan - Discharge Summary Discharge Rx Participant: No New Discharge Prescriptions: New Mupirocin Calcium [Bactroban 2% Cream] 1 applic TOPICAL BID #22 gm No Action Metoprolol Tartrate [Lopressor] 25 mg PO BID Allopurinol [Zyloprim] 300 mg PO DAILY Folic Acid 1 mg PO DAILY Furosemide [Lasix] 20 mg PO DAILY Cefdinir 300 mg PO Q12HR #20 cap Loperamide [Imodium] 2 mg PO QID PRN cap PRN Reason: Diarrhea Pantoprazole [Protonix] 40 mg PO AC-BID #60 tablet. HYDROcodone/APAP 5-325MG [[place] 5-325] 1 tab PO Q6H PRN PRN Reason: Pain Discharge Medication List Allopurinol [Zyloprim] 300 mg PO DAILY 02/19/19 [History] Folic Acid 1 mg PO DAILY 02/19/19 [History] Furosemide [Lasix] 20 mg PO DAILY 02/19/19 [History] Metoprolol Tartrate [Lopressor] 25 mg PO BID 02/19/19 [History] Cefdinir 300 mg PO Q12HR #20 cap 02/22/19 [Rx] Loperamide [Imodium] 2 mg PO QID PRN cap 02/23/19 [Rx] Pantoprazole [Protonix] 40 mg PO AC-BID #60 tablet. 02/23/19 [Rx] HYDROcodone/APAP 5-325MG [[place] 5-325] 1 tab PO Q6H PRN 03/03/19 [History] Mupirocin Calcium [Bactroban 2% Cream] 1 applic TOPICAL BID #22 gm 03/09/19 [Rx] Follow up Appointment(s)/Referral(s): Dennys Zafar MD [Primary Care Provider] - 03/15/19 2:00 pm Randy Leroy MD [STAFF PHYSICIAN] - 1 Week Activity/Diet/Wound Care/Special Instructions: Activity as tolerated Diet as tolerated Pt needs homecare to flush PICC 3 times a week, dressing change every 7days Discharge Disposition: HOME WITH HOME HEALTH SERVICES Pending Studies Pending Results: none
--- NOTE | 2019-03-09 21:28 | P.PN ---
Subjective Progress Note Date: 03/09/19 54-year-old male with past medical history of Hodgkin lymphoma and was recently hospitalized February 19 through the where he was treated for neutropenic fever and cellulitis of the right chest wall. Patient was stabilized and discharged home and continued on Omnicef. Patient has been brought into the hospital for cycle 2 R-EPOCH. Patient continues to have cellulitis to the right chest wall with large ulceration. He has been afebrile wild mild tachycardia. WBC 6.9, hemoglobin 9.6, platelet count 334. The creatinine is 1.03. Albumin 3.7. Patient has been continued on Omnicef and Nayan troban will be added for wound care. 03/06/2019 patient is feeling relatively well today. Denying any difficulties with his current chemotherapy. Denies fevers or chills. Anterior chest wall is without significant pain or discomfort. 03/08/2019 patient is completing his course of chemotherapy is feeling somewhat better. He is impressive much better his right anterior chest wall feels. He is worried about utilizing his PICC line at home. 03/09/2019 patient improved and will discharge home this am To complete 10 days of suprax Objective - Vital Signs Vital signs: Vital Signs Temp 97.9 F 03/09/19 03:50 Pulse 80 03/09/19 03:50 Resp 18 03/09/19 03:50 BP 142/89 03/09/19 03:50 Pulse Ox 95 03/09/19 03:50 Intake & Output 03/09/19 03/09/19 03/10/19 06:59 18:59 06:59 Intake Total 1140 Balance 1140 Intake: IV 600 Sodium Chloride 0.9% 1, 600 000 ml @ 75 mls/hr IV CONTINUOUS DA Rx#: [id number] Oral 540 Other: Voiding Method Urinal # Voids 3 - Exam Gen: This is a 54-year-old male. Patient is resting in bed and appears to be comfortable and in no acute distress. HEENT: Head is atraumatic, normocephalic. Pupils equal, round. Sclerae is anicteric. Oral mucous membranes are moist. No thrush noted. NECK: Supple. No JVD. No lymphadenopathy. No thyromegaly. LUNGS: Clear to auscultation. No wheezes or rhonchi. No intercostal retractions. HEART: Regular rate and rhythm. No murmur. Patient has large area on the right anterior chest with erythema and some eschar, the inferior eschar is complete healing of the tissue beneath. No significant drainage.superioir eschar with some unroofing and minimal bleeding. ABDOMEN: Soft. Bowel sounds are present. No masses. No tenderness. EXTREMITIES: Trace bilateral pedal edema. No calf tenderness. Dorsalis pedis +2 bilaterally. NEUROLOGICAL: Patient is awake, alert and oriented x3. - Labs CBC & Chem 7: 03/09/19 06:59 03/09/19 06:59 Labs: Abnormal Lab Results - Last 24 Hours (Table) 03/09/19 03/09/19 Range/Units 06:59 06:59 RBC 3.38 L (4.30-5.90) m/uL Hgb 9.4 L (13.0-17.5) gm/dL Hct 30.9 L (39.0-53.0) % MCHC 30.5 L (31.0-37.0) g/dL RDW 21.3 H (11.5-15.5) % Lymphocytes # 0.3 L (1.0-4.8) k/uL Chloride 112 H (98-107) mmol/L BUN 22 H (9-20) mg/dL Glucose 165 H (74-99) mg/dL Calcium 7.7 L (8.4-10.2) mg/dL Total Protein 5.1 L (6.3-8.2) g/dL Albumin 3.2 L (3.5-5.0) g/dL Laboratory Results WBC 4.1 k/uL (3.8-10.6) 03/09/19 06:59 RBC 3.38 m/uL (4.30-5.90) L 03/09/19 06:59 Hgb 9.4 gm/dL (13.0-17.5) L 03/09/19 06:59 Hct 30.9 % (39.0-53.0) L 03/09/19 06:59 MCV 91.2 fL (80.0-100.0) 03/09/19 06:59 MCH 27.8 pg (25.0-35.0) 03/09/19 06:59 MCHC 30.5 g/dL (31.0-37.0) L 03/09/19 06:59 RDW 21.3 % (11.5-15.5) H 03/09/19 06:59 Plt Count 319 k/uL (150-450) 03/09/19 06:59 Neutrophils % 87 % 03/09/19 06:59 Lymphocytes % 8 % 03/09/19 06:59 Monocytes % 3 % 03/09/19 06:59 Eosinophils % 2 % 03/09/19 06:59 Basophils % 0 % 03/09/19 06:59 Neutrophils # 3.5 k/uL (1.3-7.7) 03/09/19 06:59 Lymphocytes # 0.3 k/uL (1.0-4.8) L 03/09/19 06:59 Monocytes # 0.1 k/uL (0-1.0) 03/09/19 06:59 Eosinophils # 0.1 k/uL (0-0.7) 03/09/19 06:59 Basophils # 0.0 k/uL (0-0.2) 03/09/19 06:59 Hypochromasia Marked 03/09/19 06:59 Poikilocytosis Moderate 03/09/19 06:59 Anisocytosis Moderate 03/09/19 06:59 Macrocytosis Slight 03/09/19 06:59 PT 10.2 sec (9.0-12.0) 03/04/19 08:40 INR 0.9 (<1.2) 03/04/19 08:40 Sodium 141 mmol/L (137-145) 03/09/19 06:59 Potassium 4.3 mmol/L (3.5-5.1) 03/09/19 06:59 Chloride 112 mmol/L (98-107) H 03/09/19 06:59 Carbon Dioxide 22 mmol/L (22-30) 03/09/19 06:59 Anion Gap 7 mmol/L 03/09/19 06:59 BUN 22 mg/dL (9-20) H 03/09/19 06:59 Creatinine 0.82 mg/dL (0.66-1.25) 03/09/19 06:59 Est GFR (CKD-EPI)AfAm >90 (>60 ml/min/1.73 sqM) 03/09/19 06:59 Est GFR (CKD-EPI)NonAf >90 (>60 ml/min/1.73 sqM) 03/09/19 06:59 Glucose 165 mg/dL (74-99) H 03/09/19 06:59 Uric Acid 4.6 mg/dL (3.5-8.5) 03/09/19 06:59 Calcium 7.7 mg/dL (8.4-10.2) L 03/09/19 06:59 Total Bilirubin 0.6 mg/dL (0.2-1.3) 03/09/19 06:59 AST 31 U/L (17-59) 03/09/19 06:59 ALT 44 U/L (21-72) 03/09/19 06:59 Alkaline Phosphatase 65 U/L (38-126) 03/09/19 06:59 Total Protein 5.1 g/dL (6.3-8.2) L 03/09/19 06:59 Albumin 3.2 g/dL (3.5-5.0) L 03/09/19 06:59 Assessment and Plan (1) Pancytopenia Status: Acute Code(s): D61.818 - OTHER PANCYTOPENIA SNOMED Code(s): 029150787 (2) Extravasation of vesicant antineoplastic chemotherapy, subsequent encounter Narrative/Plan: 54-year-old male known to the service because of the difficulty with his extrav asated chemotherapy lesion to his right anterior chest wall. The patient was admitted for his next round of chemotherapy. [facility]'s last being seen the significant abnormalities to the right anterior chest wall are now much improved. 2 small areas of eschar still seen. Ulceration of the tissue is improving greatly. There is still some erythema and thickening to the tissue, but it is no longer tender and there is no drainage. He is receiving antibiotic therapy with Omnicef which we'll continue. Topical therapies with Bactroban which has been very helpful. If his PICC line can be wrapped he may shower with gentle soap such as Dial without scrubbing to try to gently remove an exfoliate the dry tissue to the right anterior chest wall. This occurs Nhunvk-j-Haug at this point in time it is not being utilized since he has a PICC line in the left arm. Once the tissue to the right anterior chest wall has further healed it is likely that the Ikvvpp-q-Viup will be removed. Further healing is requested prior to removal of the port to ensure the site will heal after the intervention. 03/06/2019 patient is feeling slightly better today. There has been no new findings to the right anterior chest wall. The inferior eschar actually is unroofed with evidence complete healing beneath. Upper eschar is still fully attach. The area of erythema is well-defined and not tender. The Qlidvk-k-Ejjw that is present in this area is without tenderness. Continue oral by therapy in the Bactroban is requested to be applied to the area twice per day. 03/08/2019 patient has further improvement of his status. Oral cephalosporin topical Bactroban being utilized with good outcome. We'll continue after his discharge. 03/09/2019 patient does have further improvement. Case is discussed with the oncology [employer] the patient will be discharged home today. The Suprax 300 mg twice per day for 10 days and topical Bactroban will be continued. Upon his follow-up in the oncology office if there is any further concerns to the chest wall would be happy to see him in the office. Once the site is completely healed suggesting that the port be removed. Status: Acute Code(s): T80.810D - EXTRAVASATION OF VESICANT ANTINEOPLASTIC CHEMOTHERAPY, SUBS SNOMED Code(s): 593782857
== END 2019-03-09 11:50 | disposition home health service (06) | DRG 847 ==
LOC: 3NMEDONC 17:24
PROVIDERS: ADMIT Internal Medicine Hematology & Oncology; ATTEND Internal Medicine Hematology & Oncology
PROC: 02HV33Z Insertion of Infusion Device into Superior Vena Cava, Percutaneous Approach (ICD-10-PCS; principal; 2019-03-04 10:00)
PROC: 3E03305 Introduction of Other Antineoplastic into Peripheral Vein, Percutaneous Approach (ICD-10-PCS; 2019-03-05)
DX: Z51.11 Encounter for antineoplastic chemotherapy (principal); C83.30 Diffuse large B-cell lymphoma, unspecified site; L03.313 Cellulitis of chest wall; T80.810A Extravasation of vesicant antineoplastic chemotherapy, initial encounter; T80.81 Extravasation of vesicant agent; E66.9 Obesity, unspecified; Z68.36 Body mass index [BMI] 36.0-36.9, adult; E78.5 Hyperlipidemia, unspecified; F31.9 Bipolar disorder, unspecified; G47.33 Obstructive sleep apnea (adult) (pediatric); I10 Essential (primary) hypertension; J44.9 Chronic obstructive pulmonary disease, unspecified; N13.9 Obstructive and reflux uropathy, unspecified; Z79.899 Other long term (current) drug therapy; Z87.891 Personal history of nicotine dependence; Z82.0 Family history of epilepsy and other diseases of the nervous system; L98.499 Non-pressure chronic ulcer of skin of other sites with unspecified severity
CPT/HCPCS: 36573; 80053; 84550; 85025; 85610

== ENCOUNTER 2019-03-19 22:24 | Inpatient (IN) | payer OTHER ==
[2019-03-19] MEDS ORDERED: ACETAMINOPHEN TAB 500 MG TAB PO STA (22:43)
[2019-03-19] MEDS ORDERED: SODIUM CHLORIDE 0.9% 500 ML 500 ML IV STA (22:43)
[2019-03-19] MEDS ORDERED: SODIUM CHLORIDE 0.9% 1,000 ML IV STA ×2 (22:43)
--- NOTE | 2019-03-19 23:46 | XR ---
EXAM: XR Chest, 2 Views CLINICAL HISTORY: Cough TECHNIQUE: Frontal and lateral views of the chest. COMPARISON: Chest x-ray dated 02/19/2018 FINDINGS: Lungs: Improved airspace opacities as compared to the prior. Pleural space: Unremarkable. No pneumothorax. Heart: Unremarkable. No cardiomegaly. Mediastinum: Unremarkable. Bones/joints: Unremarkable. Tubes, lines and devices: Left upper extremity PICC with tip in the distal innominate vein. Subclavian Port-A-Cath tip in the SVC. IMPRESSION: Improved airspace opacities as compared to the prior.
[2019-03-19 23:48] LABS: Anisocytosis Moderate; HGB 8.7 gm/dL (13.0-17.5); Hypochromasia Slight; MCH 27.5 pg (25.0-35.0); MCHC 31.1 g/dL (31.0-37.0); MCV 88.3 fL (80.0-100.0); Mean Platelet Volume 7.1; Platelet Count 325 k/uL (150-450); Poikilocytosis Moderate; RBC 3.17 m/uL (4.30-5.90); RDW 20.9 % (11.5-15.5)
[2019-03-19 23:52] LABS: ALT 18 U/L (21-72); AST 17 U/L (17-59); African American GFR (CKD) >90 (>60 ml/min/1.73 sqM); Albumin 3.4 g/dL (3.5-5.0); Alkaline Phosphatase 67 U/L (38-126); Anion Gap 7 mmol/L; Blood Urea Nitrogen 11 mg/dL (9-20); Calcium 8.6 mg/dL (8.4-10.2); Carbon Dioxide 21 mmol/L (22-30); Chloride 108 mmol/L (98-107); Glucose 97 mg/dL (74-99); Magnesium 1.8 mg/dL (1.6-2.3); Phosphorus 3.1 mg/dL (2.5-4.5); Potassium 3.7 mmol/L (3.5-5.1); Sodium 136 mmol/L (137-145); Total Bilirubin 0.5 mg/dL (0.2-1.3); Total Protein 5.5 g/dL (6.3-8.2)
[2019-03-19 23:56] LABS: WBC 1.3 k/uL (3.8-10.6)
[2019-03-19] MEDS ORDERED: PIPERACILLIN-TAZOBACTAM 3.375 GM in SODIUM CHLORIDE 0.9% 100 ML IVPB STA (23:57)
[2019-03-19] MEDS ORDERED: VANCOMYCIN IV PER PHARMACY 1 EACH MISC MISCELLANE PRN (23:57)
--- NOTE | 2019-03-20 00:05 | ED ---
Fever HPI - General Chief Complaint: Fever Stated Complaint: Fever Time Seen by Provider: 03/19/19 22:41 Source: patient, EMS, RN notes reviewed, old records reviewed Mode of arrival: EMS - History of Present Illness Initial Comments: This is a 54-year-old male to the ER for evaluation. Patient presents today for evaluation of fever. Patient accepted in transfer from [facility] is as well as primary [facility] is wrist oncology is. Patient's presented for fever. Fever, patient is a primary CA, undergoing chemotherapy currently. Patient had visiting nurse who sent him to hospital regarding fever. Patient denies complaints no headache chest pain shortness breath cough or congestion. No dysuria no abdominal pain. Patient does not know is any new rashes. No sore throat MD Complaint: fever, weakness -: unknown Temperature Source: subjective Context: on chemotherapy Associated Symptoms: chills, myalgias Treatments Prior to Arrival: none - Related Data Home Medications Medication Instructions Recorded Confirmed Allopurinol [Zyloprim] 300 mg PO DAILY 02/19/19 03/19/19 Folic Acid 1 mg PO DAILY 02/19/19 03/19/19 Furosemide [Lasix] 20 mg PO DAILY 02/19/19 03/19/19 Metoprolol Tartrate [Lopressor] 25 mg PO BID 02/19/19 03/19/19 HYDROcodone/APAP 5-325MG [[place] 1 tab PO Q6H PRN 03/03/19 03/19/19 5-325] Nystatin 500,000 unit PO QID 03/19/19 03/19/19 Ondansetron HCl [Zofran] 4 mg PO Q8H PRN 03/19/19 03/19/19 Previous Rx's Medication Instructions Recorded Loperamide [Imodium] 2 mg PO QID PRN cap 02/23/19 Pantoprazole [Protonix] 40 mg PO AC-BID #60 tablet. 02/23/19 Mupirocin Calcium [Bactroban 2% 1 applic TOPICAL BID #22 gm 03/09/19 Cream] Allergies Allergy/AdvReac Type Severity Reaction Status Date / Time latex Allergy Rash/Hives Verified 03/19/19 23:32 ragweed pollen Allergy Unknown Verified 03/19/19 23:32 Review of Systems ROS Statement: Those systems with pertinent positive or pertinent negative responses have been documented in the HPI. ROS Other: All systems not noted in ROS Statement are negative. Past Medical History Past Medical History: Cancer, Hyperlipidemia, Hypertension Additional Past Medical History / Comment(s): Non hodgkins lymphoma. History of Any Multi-Drug Resistant Organisms: None Reported Past Surgical History: No Surgical Hx Reported Additional Past Surgical History / Comment(s): Colonoscopy, lymph node biopsy. Past Anesthesia/Blood Transfusion Reactions: No Reported Reaction Additional Past Anesthesia/Blood Transfusion Reaction / Comment(s): Pt has received blood in past without reaction. Past Psychological History: Bipolar, Depression Smoking Status: Former smoker Past Alcohol Use History: None Reported Past Drug Use History: None Reported - Past Family History Father Family Medical History: No Reported History Additional Family Medical History / Comment(s): Father is healthy and is 82 yrs old. Mother Family Medical History: No Reported History Additional Family Medical History / Comment(s): Mother from dementia. General Exam General appearance: alert, in no apparent distress Head exam: Present: atraumatic, normocephalic, normal inspection Eye exam: Present: normal appearance, PERRL, EOMI. Absent: scleral icterus, con junctival injection, periorbital swelling ENT exam: Present: normal exam, mucous membranes moist Neck exam: Present: normal inspection. Absent: tenderness, meningismus, lymphadenopathy Respiratory exam: Present: normal lung sounds bilaterally. Absent: respiratory distress, wheezes, rales, rhonchi, stridor Cardiovascular Exam: Present: normal rhythm, tachycardia, normal heart sounds. Absent: systolic murmur, diastolic murmur, rubs, gallop, clicks GI/Abdominal exam: Present: soft, normal bowel sounds. Absent: distended, tenderness, guarding, rebound, rigid Extremities exam: Present: normal inspection, full ROM, normal capillary refill. Absent: tenderness, pedal edema, joint swelling, calf tenderness Back exam: Present: normal inspection Neurological exam: Present: alert, oriented X3, CN II-XII intact Psychiatric exam: Present: normal affect, normal mood Skin exam: Present: warm, dry, intact, normal color. Absent: rash Course Vital Signs 03/19/19 22:37 Temperature 98.5 F Pulse Rate 101 H Respiratory 18 Rate Blood Pressure 120/75 O2 Sat by Pulse 96 Oximetry - Reevaluation(s) Reevaluation #1: 03/20/19 00:02 Medical record and transfer paperwork is reviewed Reevaluation #2: 03/20/19 00:02 Patient remains without complaint Medical Decision Making - Medical Decision Making 84 male the ER with neutropenic fever will admit for IV antibiotics and continue monitoring, blood culture evaluation - Lab Data Result diagrams: 03/19/19 23:23 03/19/19 23:23 Lab Results 03/19/19 03/19/19 03/19/19 Range/Units 23:23 23:23 23:23 WBC 1.3 L* (3.8-10.6) k/uL RBC 3.17 L (4.30-5.90) m/uL Hgb 8.7 L (13.0-17.5) gm/dL Hct 28.0 L (39.0-53.0) % MCV 88.3 (80.0-100.0) fL MCH 27.5 (25.0-35.0) pg MCHC 31.1 (31.0-37.0) g/dL RDW 20.9 H (11.5-15.5) % Plt Count 325 (150-450) k/uL Hypochromasia Slight Poikilocytosis Moderate Anisocytosis Moderate Sodium 136 L (137-145) mmol/L Potassium 3.7 (3.5-5.1) mmol/L Chloride 108 H (98-107) mmol/L Carbon Dioxide 21 L (22-30) mmol/L Anion Gap 7 mmol/L BUN 11 (9-20) mg/dL Creatinine 0.96 (0.66-1.25) mg/dL Est GFR (CKD-EPI)AfAm >90 (>60 ml/min/1.73 sqM) Est GFR (CKD-EPI)NonAf 89 (>60 ml/min/1.73 sqM) Glucose 97 (74-99) mg/dL Plasma Lactic Acid Marcos 0.8 (0.7-2.0) mmol/L Calcium 8.6 (8.4-10.2) mg/dL Phosphorus 3.1 (2.5-4.5) mg/dL Magnesium 1.8 (1.6-2.3) mg/dL Total Bilirubin 0.5 (0.2-1.3) mg/dL AST 17 (17-59) U/L ALT 18 L (21-72) U/L Alkaline Phosphatase 67 (38-126) U/L Total Protein 5.5 L (6.3-8.2) g/dL Albumin 3.4 L (3.5-5.0) g/dL - Radiology Data Radiology results: report reviewed (Chest x-rays negative for acute disease), image reviewed Critical Care Time Critical Care Time: Yes Total Critical Care Time: 31 Disposition Clinical Impression: Neutropenic fever Disposition: ADMITTED IP TO THIS [facility] Condition: Fair Is patient prescribed a controlled substance at d/c from ED?: No Referrals: Randy Leroy MD [Primary Care Provider] - 1-2 days
[2019-03-20 00:30] LABS: Neutrophils % (M) 26 %
[2019-03-20] MEDS ORDERED: VANCOMYCIN 1,750 MG in SODIUM CHLORIDE 0.9% 250 ML IVPB ONE (00:30)
[2019-03-20 00:34] LABS: Band Neutrophils % 11 %; Eosinophils # (M) 0.16 k/uL (0-0.7); Lymphocytes # (M) 0.46 k/uL (1.0-4.8); Monocytes # (M) 0.21 k/uL (0-1.0)
[2019-03-20 00:35] LABS: Anisocytosis (M) Present; Nucleated Red Blood Cells 0 /100 WBC (0-0); Ovalocytes Present; Total Cells Counted 100
[2019-03-20] MEDS: SODIUM CHLORIDE 0.9% 1,000 ML IV SCH ×3 (01:46→14:42)
[2019-03-20 02:27] LABS: Amorphous Sediment,Urine Rare /hpf; Appearance,Urine Turbid (Clear); Bilirubin,Urine Negative (Negative); Blood,Urine Negative (Negative); Color,Urine Yellow; Glucose,Urine (UA) Negative (Negative); Ketones,Urine Negative (Negative); Leukocyte Esterase,Urine Negative (Negative); Mucus,Urine Rare /hpf; Nitrite,Urine Negative (Negative); PH, Urine 5.5 (5.0-8.0); Protein,Urine Trace (Negative); Specific Gravity,Urine 1.029 (1.001-1.035); Squamous Epithelial Cell,Urine <1 /hpf (0-4); Urobilinogen,Urine <2.0 mg/dL (<2.0)
[2019-03-20] MEDS ORDERED: VANCOMYCIN 1,750 MG in SODIUM CHLORIDE 0.9% 500 ML 500 ML IVPB SCH (06:30)
[2019-03-20] MEDS: PIPERACILLIN-TAZOBACTAM 3.375 GM in SODIUM CHLORIDE 0.9% 100 ML IVPB SCH ×3 (07:31→23:10)
[2019-03-20] MEDS: ENOXAPARIN 40 MG/0.4 ML SYRINGE SQ SCH (07:45)
--- NOTE | 2019-03-20 10:37 | P.HPIM ---
History of Present Illness H&P Date: 03/20/19 Chief Complaint: Spiking fever 54-year-old with history of non-Hodgkin's lymphoma patient seen eval reexamined in the ER admitted through the ER patient was transferred from [facility], patient has a large skin lesion cellulitis like on anterior right side chest wall and some infiltrate on the x-ray as well which however seems to be improving compared to February 2019, is on chemotherapy, denies any headache denies any chest pain shortness of breath cough and sputum production denies any bowel or bladder related problem Review of Systems All systems: negative Past Medical History Past Medical History: Cancer, Hyperlipidemia, Hypertension Additional Past Medical History / Comment(s): Non hodgkins lymphoma. History of Any Multi-Drug Resistant Organisms: None Reported Past Surgical History: No Surgical Hx Reported Additional Past Surgical History / Comment(s): Colonoscopy, lymph node biopsy. Past Anesthesia/Blood Transfusion Reactions: No Reported Reaction Additional Past Anesthesia/Blood Transfusion Reaction / Comment(s): Pt has received blood in past without reaction. Past Psychological History: Bipolar, Depression Additional Psychological History / Comment(s): single. No children. Family are involved in helping him with his current situation. 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 no experience. No international travel. No animal exposures Smoking Status: Former smoker Past Alcohol Use History: None Reported Additional Past Alcohol Use History / Comment(s): Quit smoking December 2018. Smoked 30+ yrs, 1 PPD cutting down to 1/4PPD before quitting. Past Drug Use History: None Reported - Past Family History Father Family Medical History: No Reported History Additional Family Medical History / Comment(s): Father is healthy and is 82 yrs old. Mother Family Medical History: No Reported History Additional Family Medical History / Comment(s): Mother from dementia. Medications and Allergies Home Medications Medication Instructions Recorded Confirmed Type Allopurinol [Zyloprim] 300 mg PO DAILY 02/19/19 03/19/19 History Folic Acid 1 mg PO DAILY 02/19/19 03/19/19 History Furosemide [Lasix] 20 mg PO DAILY 02/19/19 03/19/19 History Metoprolol Tartrate [Lopressor] 25 mg PO BID 02/19/19 03/19/19 History Loperamide [Imodium] 2 mg PO QID PRN cap 02/23/19 03/19/19 Rx Pantoprazole [Protonix] 40 mg PO AC-BID #60 tablet. 02/23/19 03/19/19 Rx HYDROcodone/APAP 5-325MG [[place] 1 tab PO Q6H PRN 03/03/19 03/19/19 History 5-325] Mupirocin Calcium [Bactroban 2% 1 applic TOPICAL BID #22 gm 03/09/19 03/19/19 Rx Cream] Nystatin 500,000 unit PO QID 03/19/19 03/19/19 History Ondansetron HCl [Zofran] 4 mg PO Q8H PRN 03/19/19 03/19/19 History Allergies Allergy/AdvReac Type Severity Reaction Status Date / Time latex Allergy Rash/Hives Verified 03/19/19 23:32 ragweed pollen Allergy Unknown Verified 03/19/19 23:32 Physical Exam Vitals: Vital Signs Temp Pulse Pulse Resp BP BP Pulse Ox 03/20/19 07:00 97.5 F L 84 16 120/78 97 03/20/19 01:30 98.3 F 96 18 120/74 98 03/19/19 22:37 98.5 F 101 H 18 120/75 96 Intake and Output 03/19/19 03/20/19 03/20/19 22:59 06:59 14:59 Other: Weight 113.398 kg - Constitutional General appearance: disheveled, mild distress, morbidly obese - EENT Eyes: anicteric sclerae, EOMI, PERRLA, normal appearance ENT: normal oropharynx Ears: bilateral: normal - Neck Neck: normal ROM Carotids: bilateral: upstroke normal - Respiratory Respiratory: bilateral: CTA - Cardiovascular Rhythm: regular Heart sounds: normal: S1, S2 - Gastrointestinal General gastrointestinal: decreased bowel sounds, distended, soft - Neurologic Neurologic: CNII-XII intact - Musculoskeletal Musculoskeletal: gait normal, generalized weakness, strength equal bilaterally - Psychiatric Psychiatric: A&O x's 3, appropriate affect, intact judgment & insight (Right side of the chest anterior chest wall diffuse thickness and edema and erythema) Results CBC & Chem 7: 03/19/19 23:23 03/19/19 23:23 Labs: Abnormal Lab Results - Last 24 Hours (Table) 03/19/19 03/19/19 03/20/19 Range/Units 23:23 23:23 01:50 WBC 1.3 L* (3.8-10.6) k/uL RBC 3.17 L (4.30-5.90) m/uL Hgb 8.7 L (13.0-17.5) gm/dL Hct 28.0 L (39.0-53.0) % RDW 20.9 H (11.5-15.5) % Neutrophils # (Manual) 0.40 L* (1.3-7.7) k/uL Lymphocytes # (Manual) 0.46 L (1.0-4.8) k/uL Sodium 136 L (137-145) mmol/L Chloride 108 H (98-107) mmol/L Carbon Dioxide 21 L (22-30) mmol/L ALT 18 L (21-72) U/L Total Protein 5.5 L (6.3-8.2) g/dL Albumin 3.4 L (3.5-5.0) g/dL Urine Protein Trace H (Negative) Amorphous Sediment Rare H (None) /hpf Urine Mucus Rare H (None) /hpf Microbiology - Last 24 Hours (Table) 03/20/19 01:50 Urine Culture - Preliminary Urine,Voided Chest x-ray: report reviewed, image reviewed Thrombosis Risk Factor Assmnt - Choose All That Apply Any of the Below Risk Factors Present?: Yes Each Factor Represents 1 point: Age 41-60 years Each Risk Factor Represents 2 Points: Malignancy Thrombosis Risk Factor Assessment Total Risk Factor Score: 3 Thrombosis Risk Factor Assessment Level: Moderate Risk Assessment and Plan Assessment: Anterior wall cellulitis Neutropenic sepsis Non-Hodgkin lymphoma on chemotherapy Anemia Morbid obesity Hypertension hypertensive cardiovascular disease Plan: Broad-spectrum antibiotics with IV vancomycin and Zosyn Consult oncology Ultrasound of the right side of the chest to look for abscess Consult ID Resume all medications Further recommendations pending plan of care as per clinical response of patient Time with Patient: Greater than 30
--- NOTE | 2019-03-20 11:39 | US ---
EXAMINATION TYPE: US mass soft tissue chest/back DATE OF EXAM: 03/20/2019 COMPARISON: CT 2019 CLINICAL HISTORY: RT CHEST ABSCESS. Right upper chest area of pain, redness and swelling x couple wee ks, patient had port placed recently Right chest area of concern: no mass or abscess seen at this time, port seen, patent superficial vess els seen IMPRESSION: SUBTLE EDEMA IN THE AREA OF CLINICAL CONCERN BUT NO CYSTIC OR SOLID MASS.
[2019-03-20] MEDS ORDERED: LOPERAMIDE 2 MG CAP PO PRN (13:06)
[2019-03-20] MEDS ORDERED: ONDANSETRON 4 MG TAB PO PRN (13:06)
[2019-03-20] MEDS: ALLOPURINOL 300 MG TAB PO SCH (14:43)
[2019-03-20] MEDS: FUROSEMIDE 20 MG TAB PO SCH (14:43)
[2019-03-20] MEDS: FOLIC ACID 1 MG TAB PO SCH (14:43)
[2019-03-20] MEDS: FILGRASTIM-SNDZ 480 MCG/0.8 ML SYRINGE SQ SCH (15:18)
[2019-03-20] MEDS: NYSTATIN 100,000 UNIT/ML SUSP 500,000 UNIT/5 ML CUP PO SCH ×2 (17:27→20:17)
[2019-03-20] MEDS: PANTOPRAZOLE 40 MG TABLET PO SCH (17:27)
[2019-03-20] MEDS: VANCOMYCIN 1,750 MG in SODIUM CHLORIDE 0.9% 500 ML 500 ML IVPB SCH (17:27)
[2019-03-20] MEDS: METOPROLOL TARTRATE 25 MG TAB PO SCH (20:17)
[2019-03-20] MEDS: MUPIROCIN 2% OINT 22 GM TUBE TOPICAL SCH (20:17)
[2019-03-20] MEDS: HYDROcodone/APAP 5-325MG 1 EACH TAB PO PRN (21:12)
[2019-03-21] MEDS: SODIUM CHLORIDE 0.9% 1,000 ML IV SCH ×5 (04:59→20:45)
[2019-03-21] MEDS: VANCOMYCIN 1,750 MG in SODIUM CHLORIDE 0.9% 500 ML 500 ML IVPB SCH ×2 (04:59→17:32)
[2019-03-21] MEDS: ALLOPURINOL 300 MG TAB PO SCH (08:00)
[2019-03-21] MEDS: FUROSEMIDE 20 MG TAB PO SCH (08:00)
[2019-03-21] MEDS: PANTOPRAZOLE 40 MG TABLET PO SCH ×2 (08:00→17:32)
[2019-03-21] MEDS: METOPROLOL TARTRATE 25 MG TAB PO SCH ×2 (08:00→20:44)
[2019-03-21] MEDS: PIPERACILLIN-TAZOBACTAM 3.375 GM in SODIUM CHLORIDE 0.9% 100 ML IVPB SCH ×3 (08:00→23:06)
[2019-03-21] MEDS: ENOXAPARIN 40 MG/0.4 ML SYRINGE SQ SCH (08:01)
[2019-03-21] MEDS: FOLIC ACID 1 MG TAB PO SCH (08:02)
[2019-03-21] MEDS: NYSTATIN 100,000 UNIT/ML SUSP 500,000 UNIT/5 ML CUP PO SCH ×2 (08:02→12:55)
[2019-03-21] MEDS: MUPIROCIN 2% OINT 22 GM TUBE TOPICAL SCH ×2 (08:03→20:45)
--- NOTE | 2019-03-21 11:39 | P.CONS ---
History of Present Illness - Reason for Consult Consult date: 03/21/19 Fever, neutropenia due to chemotherapy. Lymphoma - History of Present Illness The patient is a 54-year-old male pt of Dr. 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 Initial consult 12/15/18, complaints of persistent fatigue, progressive shortness of breath on exertion, weight loss of about 30 pounds in the prior 3-4 months. Imaging showed evidence of obstructive uropathy and diffuse adenopathy above and below the diaphragm, right supraclavicular nodes were palpable. Right supraclavicular lymph node biopsy on 12/16/18, initial biopsy report appeared to indicate Hodgkin lymphoma versus anaplastic T-cell lymphoma. Specimen sent to [facility] for consultation. 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 ALK testing was negative. B and T-cell rearrangement studies were ordered. Surprisingly B cell gene rearrangement was positive, while T-cell rearrangements were negative. Despite the gene rearrangement studies, it was the opinion of the consulting pathologist at the [facility] that the morphologic and IHC characteristics best supported a PTCL. Bone marrow biopsy on 01/15/19 showed significant involvement with lymphoma. Gene rearrangement studies did not show either B or T cell markers!! PET was ordered but the patient did not keep that appointment. He was also referred to the [facility], [place], appointment was delayed due to to have not having insurance. Unfortunately pt was admitted to [facility] with progressive respiratory symptoms. He was started emergently on EPOCH on 02/07/19. He had extravasation of chemo cau sing soft tissue damage in the rt upper chest wall, that was able to be managed conservatively. He was admitted with febrile neutropenia to [facility] after C 1. He improved with antibiotics and GCSf. He was admitted for cycle 2 on 03/04/19. He tolerated treatment well and was discharged on 03/09/19. He was seen in the office for routine follow-up in 03/18/19. He was complaining of significant mouth soreness and was found to have marked thrush. In the office he had a temp of 100.4. He was sent in to the emergency room, but was afebrile there on repeat measurements. As he otherwise felt well, he decided to go home. He states however that his family was concerned and persuaded him to go back to the hospital. He initially went to [facility] ER and was transferred here. On close questioning he states that he did not have any temperature greater than 100.4 at home up going back from the ER initially. On admission his total WBC was still low at 1.3 with ANC less than 1000. He was admitted for further management. The patient has right chest wall cellulitis since the chemotherapy extravasation. He has had imaging studies since, showing no evidence of abscess formation or free air. He is continued topical therapy with slow but steady improvement. He reports further improvement this time with sloughing off of previously noted extensive scabbing, with healthy pink tissue underneath. Total extent has also diminished. He has not noted any new ulceration or discharge. No history of any cough or shortness of breath over baseline. His bowel movements were normal at home but he has had some loose BMs since starting antibiotics here Review of Systems Constitutional: Reports fatigue, Reports poor appetite Eyes: denies blurred vision, denies pain Ears: deny: decreased hearing, ear discharge, earache, tinnitus Ears, nose, mouth and throat: Reports as per HPI (Marked oral thrush), Denies headache, Denies sore throat Cardiovascular: Reports decreased exercise tolerance Respiratory: Denies cough Gastrointestinal: Reports diarrhea Genitourinary: Reports as per HPI Musculoskeletal: Denies myalgias Integumentary: Reports as per HPI, Reports lesions (Cellulitis due to chemotherapy extravasation. Continued improvement) Neurological: Denies numbness, Denies weakness Psychiatric: Reports as per HPI (Known history of bipolar disorder), Reports difficulty concentrating Hematologic/Lymphatic: Reports as per HPI Past Medical History Past Medical History: Cancer, Hyperlipidemia, Hypertension Additional Past Medical History / Comment(s): Non hodgkins lymphoma. History of Any Multi-Drug Resistant Organisms: None Reported Past Surgical History: No Surgical Hx Reported Additional Past Surgical History / Comment(s): Colonoscopy, lymph node biopsy. Past Anesthesia/Blood Transfusion Reactions: No Reported Reaction Additional Past Anesthesia/Blood Transfusion Reaction / Comm: Pt has received blood in past without reaction. Past Psychological History: Bipolar, Depression Additional Psychological History / Comment(s): single. No children. Family are involved in helping him with his current situation. 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 No international travel. No animal exposures Smoking Status: Former smoker Past Alcohol Use History: None Reported Additional Past Alcohol Use History / Comment(s): Quit smoking December 2018. Smoked 30+ yrs, 1 PPD cutting down to 1/4PPD before quitting. Past Drug Use History: None Reported - Past Family History Father Family Medical History: No Reported History Additional Family Medical History / Comment(s): Father is healthy and is 82 yrs old. Mother Family Medical History: No Reported History Additional Family Medical History / Comment(s): Mother from dementia. Medications and Allergies Home Medications Medication Instructions Recorded Confirmed Type Allopurinol [Zyloprim] 300 mg PO DAILY 02/19/19 03/19/19 History Folic Acid 1 mg PO DAILY 02/19/19 03/19/19 History Furosemide [Lasix] 20 mg PO DAILY 02/19/19 03/19/19 History Metoprolol Tartrate [Lopressor] 25 mg PO BID 02/19/19 03/19/19 History Loperamide [Imodium] 2 mg PO QID PRN cap 02/23/19 03/19/19 Rx Pantoprazole [Protonix] 40 mg PO AC-BID #60 tablet. 02/23/19 03/19/19 Rx HYDROcodone/APAP 5-325MG [[place] 1 tab PO Q6H PRN 03/03/19 03/19/19 History 5-325] Mupirocin Calcium [Bactroban 2% 1 applic TOPICAL BID #22 gm 03/09/19 03/19/19 Rx Cream] Nystatin 500,000 unit PO QID 03/19/19 03/19/19 History Ondansetron HCl [Zofran] 4 mg PO Q8H PRN 03/19/19 03/19/19 History Allergies Allergy/AdvReac Type Severity Reaction Status Date / Time latex Allergy Rash/Hives Verified 03/19/19 23:32 ragweed pollen Allergy Unknown Verified 03/19/19 23:32 Physical Exam Vitals: Vital Signs Temp Pulse Resp BP Pulse Ox 03/21/19 08:00 16 03/21/19 05:00 97.7 F 95 16 121/67 97 03/20/19 21:00 98.1 F 103 H 20 131/78 95 03/20/19 12:48 98.7 F 103 H 16 121/85 97 Intake and Output 03/20/19 03/21/19 03/21/19 22:59 06:59 14:59 Other: # Voids 1 2 - Constitutional General appearance: no acute distress - EENT Eyes: EOMI, PERRLA ENT: hearing grossly normal, thrush - Neck Neck: no lymphadenopathy Thyroid: bilateral: normal size - Respiratory Respiratory: bilateral: CTA - Cardiovascular Rhythm: regular Heart sounds: normal: S1, S2 - Gastrointestinal General gastrointestinal: normal bowel sounds, soft - Integumentary Integumentary: cellulitis (Right upper chest wall area of skin thickening and redness. Tender to palpation. No evidence of fluctuation or crepitus. Extent of this area is significantly diminished. Areas of scabbing noted on previous exam have resolved with very small residual area of scabbing remaining.) - Neurologic Neurologic: CNII-XII intact - Musculoskeletal Musculoskeletal: strength equal bilaterally - Psychiatric Psychiatric: A&O x's 3, appropriate affect Results CBC & Chem 7: 03/19/19 23:23 03/19/19 23:23 Labs: Microbiology - Last 24 Hours (Table) 03/19/19 23:23 Blood Culture - Preliminary Blood No Growth after 24 hours 03/20/19 01:50 Urine Culture - Preliminary Urine,Voided Comments: Chest wall ultrasound report reviewed Chest x-ray: report reviewed Assessment and Plan (1) Neutropenic fever Narrative/Plan: The patient is admitted with the diagnosis of neutropenic fever. However, his fever has not really been very significant. He had one temperature of 100.4 in the office, but was afebrile subsequently in the hospital. He came back in because he was persuaded to do so by his family. However his quite categorical that he did not have any temperature of greater than 100.4 at home up going back from his ER visit on 03/18. He does remain neutropenic because of his chem otherapy. He has no localizing signs of infection. Cor with perspective antibiotics until cultures are resulted negative. He has been started on filgrastim. If cultures are negative he can be discharged once WBC recovers Current Visit: Yes Status: Acute Priority: High Code(s): D70.9 - NEUT ROPENIA, UNSPECIFIED; R50.81 - FEVER PRESENTING WITH CONDITIONS CLASSIFIED ELSEWHERE SNOMED Code(s): 214421508 (2) Cellulitis of chest wall Narrative/Plan: This was due to chemotherapy extravasation. This is quite unlikely to be a source of infection, as the exam has persistently improved since the initial occurrence. For example, at this time the total area is reduced from his previous physical exam. Prior noted areas of scabbing have mostly resolved. Underlying skin appears is still erythematous, but there is no evidence of any ulceration or discharge. Physical exam again reveals no evidence of any deep tissue infection, with neither crepitus nor fluctuation noted on exam. Soft tissue ultrasound was also negative for the same. Continue local care Current Visit: No Status: Acute Priority: Medium Code(s): L03.313 - CELLULITIS OF CHEST WALL SNOMED Code(s): 14471223 (3) Non-Hodgkin's lymphoma in adult Narrative/Plan: Diagnostic antibiotic circumstances as described. The patient has completed 2 cycles. Clinically he has had a good response with resolution of palpable adenopathy, and marked improvement in his lymphoma related symptoms. We're awaiting a PET scan for restaging. Assuming that this shows good results, he will be continued on treatment. Current Visit: No Status: Acute Priority: High Code(s): C85.90 - NON-H ODGKIN LYMPHOMA, UNSPECIFIED, UNSPECIFIED SITE SNOMED Code(s): 873640485
[2019-03-21] MEDS: FILGRASTIM-SNDZ 480 MCG/0.8 ML SYRINGE SQ SCH (14:44)
--- NOTE | 2019-03-21 16:11 | P.PN ---
Subjective Progress Note Date: 03/21/19 Principal diagnosis: Neutropenic fever, cellulitis of the anterior chest wall, non-Hodgkin lymphoma, chronic anemia, morbid obesity, mild hypertension hypertensive cardiovascular di sease 03/21/2019, patient seen eval reexamined during the rounds, doing well in terms of breathing chest pain is better, ultrasound failed to reveal any abscess 54-year-old with history of non-Hodgkin's lymphoma patient seen eval reexamined in the ER admitted through the ER patient was transferred from [facility], patient has a large skin lesion cellulitis like on anterior right side chest wall and some infiltrate on the x-ray as well which however seems to be improving compared to February 2019, is on chemotherapy, denies any headache denies any chest pain shortness of breath cough and sputum production denies any bowel or bladder related problem Objective - Vital Signs Vital signs: Vital Signs Temp 98.0 F 03/21/19 11:41 Pulse 85 03/21/19 11:41 Resp 15 03/21/19 14:45 BP 131/81 03/21/19 11:41 Pulse Ox 96 03/21/19 11:41 Intake & Output 03/20/19 03/21/19 03/21/19 18:59 06:59 18:59 Intake Total 1100 Balance 1100 Intake: Intake, IV Titration 1100 Amount Piperacillin-Tazobactam 3 100 .375 gm In Sodium Chloride 0.9% 100 ml @ 25 mls/hr IVPB Q8HR [facility] Rx# :[id number] Sodium Chloride 0.9% 1, 500 000 ml @ 100 mls/hr IV . Q10H [facility] Rx#:[id number] Vancomycin 1,750 mg In 500 Sodium Chloride 0.9% 500 ml 500 ml @ 167 mls/hr IVPB Q12H [facility] Rx#: [id number] Other: # Voids 2 2 - Exam - Constitutional General appearance: disheveled, mild distress, morbidly obese - EENT Eyes: anicteric sclerae, EOMI, PERRLA, normal appearance ENT: normal oropharynx Ears: bilateral: normal - Neck Neck: normal ROM Carotids: bilateral: upstroke normal - Respiratory Respiratory: bilateral: CTA - Cardiovascular Rhythm: regular Heart sounds: normal: S1, S2 - Gastrointestinal General gastrointestinal: decreased bowel sounds, distended, soft - Neurologic Neurologic: CNII-XII intact - Musculoskeletal Musculoskeletal: gait normal, generalized weakness, strength equal bilaterally - Psychiatric Psychiatric: A&O x's 3, appropriate affect, intact judgment & insight (Right side of the chest anterior chest wall diffuse thickness and edema and erythema) - Labs CBC & Chem 7: 03/19/19 23:23 03/19/19 23:23 Labs: Microbiology - Last 24 Hours (Table) 03/20/19 01:50 Urine Culture - Final Urine,Voided 03/19/19 23:23 Blood Culture - Preliminary Blood No Growth after 24 hours Assessment and Plan Assessment: Anterior wall cellulitis Ammann no abscesses seen Neutropenic sepsis Non-Hodgkin lymphoma on chemotherapy Anemia Morbid obesity Hypertension hypertensive cardiovascular disease Plan: Broad-spectrum antibiotics with IV vancomycin and Zosyn Consult oncology Ultrasound of the right side of the chest to look for abscess reviewed Consult ID Resume all medications Further recommendations pending plan of care as per clinical response of patient Time with Patient: Greater than 30
--- NOTE | 2019-03-21 16:28 | P.CONS ---
History of Present Illness - Reason for Consult Consult date: 03/21/19 - Chief Complaint Fever - History of Present Illness 54-year-old male that has a very complex medical history which began in December of this year. At that point in time the patient was feeling poorly was having fevers chills in a 30 pound weight loss. He was feeling very poorly overall was hospitalized at a local facility and then transferred to [facility]. 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 The patient has been initiated to chemotherapy. There was great d ifficulties because of significant psychosocial problems, eventually the family was able to come together and provide him with residents and transportation for his interventional chemotherapy. It is related the patient was cared for outside facility. Chemotherapy was given through the [facility] and unfortunately there was extravasation of the chemotherapy into the chest wall tissue around the buried port. He's been having ongoing difficulties of the site. However from the last evaluation till now has had some ongoing improvement to the tissue. There was quite a large area of necrosis superficially the now just has a small area of eschar. Prior other sites of eschar in the chest wall have resolved. Continues to have some swelling to the site and some residual erythema to the tissue. There is nothing as far as pain or fluctuance that he can tell. He had a visit by his home care nurse and there was concerns to fever and constantly was directed to hospital. He has noted no significant fevers have been obtained while he is here. Review of Systems HEENT patient denies sinus discomfort, is however having some thrush but No dysphagia. Minimal oral pain. No neck stiffness or lymphadenopathy Lungs patient denies shortness of breath cough or sputum production no hemoptysis Heart patient denies chest pain or pressure. He is not having dyspnea on e xertion, orthopnea, or syncope Abdomen patient denies abdominal pain, denies nausea vomiting constipation or diarrhea. Denies hematemesis melena or hematochezia Extremities patient denies pain or swelling to the upper extremities. Patient as per the history of present illness has difficulties with the ulcerations to the bilateral heels but does not have ongoing difficulties with edema Neuro patient denies dizziness, or new deficits Skin: as noted per the history of present illness his extensive area of erythema thickness and tenderness to the right anterior chest wall to about the axillary area. Past Medical History Past Medical History: Cancer, Hyperlipidemia, Hypertension Additional Past Medical History / Comment(s): Non hodgkins lymphoma. History of Any Multi-Drug Resistant Organisms: None Reported Past Surgical History: No Surgical Hx Reported Additional Past Surgical History / Comment(s): Colonoscopy, lymph node biopsy. Past Anesthesia/Blood Transfusion Reactions: No Reported Reaction Additional Past Anesthesia/Blood Transfusion Reaction / Comm: Pt has received blood in past without reaction. Past Psychological History: Bipolar, Depression Additional Psychological History / Comment(s): single. No children. Family are involved in helping him with his current situation. 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 no experience. No international travel. No animal exposures Smoking Status: Former smoker Past Alcohol Use History: None Reported Additional Past Alcohol Use History / Comment(s): Quit smoking December 2018. Smoked 30+ yrs, 1 PPD cutting down to 1/4PPD before quitting. Past Drug Use History: None Reported - Past Family History Father Family Medical History: No Reported History Additional Family Medical History / Comment(s): Father is healthy and is 82 yrs old. Mother Family Medical History: No Reported History Additional Family Medical History / Comment(s): Mother from dementia. Medications and Allergies Home Medications and Allergies Comment(s): Current Medications Hydrocodone Bitart/Acetaminophen ([place] 5-325) 1 each PO Q6H PRN PRN Reason: Pain Last Admin: 03/20/19 21:12 Dose: 1 each Documented by: Allopurinol (Zyloprim) 300 mg PO DAILY [facility] Last Admin: 03/21/19 08:00 Dose: 300 mg Documented by: Enoxaparin Sodium (Lovenox) 40 mg SQ DAILY [facility] Last Admin: 03/21/19 08:01 Dose: 40 mg Documented by: Filgrastim (Zarxio) 480 mcg SQ Q24H [facility] Last Admin: 03/21/19 14:44 Dose: 480 mcg Documented by: Folic Acid (Folic Acid) 1 mg PO DAILY [facility] Last Admin: 03/21/19 08:02 Dose: 1 mg Documented by: Furosemide (Lasix) 20 mg PO DAILY [facility] Last Admin: 03/21/19 08:00 Dose: 20 mg Documented by: Piperacillin Sod/Tazobactam (Sod 3.375 gm/ Sodium Chloride) 100 mls @ 25 mls/hr IVPB Q8HR [facility] Last Admin: 03/21/19 14:44 Dose: 25 mls/hr Documented by: Sodium Chloride (Saline 0.9%) 1,000 mls @ 150 mls/hr IV .Q6H40M [facility] Last Admin: 03/21/19 14:45 Dose: 150 mls/hr Documented by: Vancomycin HCl 1,750 mg/ (Sodium Chloride) 500 mls @ 167 mls/hr IVPB Q12H [facility] Last Admin: 03/21/19 04:59 Dose: 167 mls/hr Documented by: Loperamide HCl (Imodium) 2 mg PO QID PRN PRN Reason: Diarrhea Metoprolol Tartrate (Lopressor) 25 mg PO BID [facility] Last Admin: 03/21/19 08:00 Dose: 25 mg Documented by: Miscellaneous Information (Vancomycin Trough Due) 0 each MISCELLANE DIRECTED ONE Stop: 03/22/19 05:01 Mupirocin (Bactroban Oint) 1 applic TOPICAL BID [facility] Last Admin: 03/21/19 08:03 Dose: 1 applic Documented by: Nystatin (Mycostatin Oral Susp) 500,000 unit PO QID [facility] Last Admin: 03/21/19 12:55 Dose: 500,000 unit Documented by: Ondansetron HCl (Zofran) 4 mg PO Q8H PRN PRN Reason: Nausea Pantoprazole Sodium (Protonix) 40 mg PO AC-BID [facility] Last Admin: 03/21/19 08:00 Dose: 40 mg Documented by: Home Medications Medication Instructions Recorded Confirmed Type Allopurinol [Zyloprim] 300 mg PO DAILY 02/19/19 03/19/19 History Folic Acid 1 mg PO DAILY 02/19/19 03/19/19 History Furosemide [Lasix] 20 mg PO DAILY 02/19/19 03/19/19 History Metoprolol Tartrate [Lopressor] 25 mg PO BID 02/19/19 03/19/19 History Loperamide [Imodium] 2 mg PO QID PRN cap 02/23/19 03/19/19 Rx Pantoprazole [Protonix] 40 mg PO AC-BID #60 tablet. 02/23/19 03/19/19 Rx HYDROcodone/APAP 5-325MG [[place] 1 tab PO Q6H PRN 03/03/19 03/19/19 History 5-325] Mupirocin Calcium [Bactroban 2% 1 applic TOPICAL BID #22 gm 03/09/19 03/19/19 Rx Cream] Nystatin 500,000 unit PO QID 03/19/19 03/19/19 History Ondansetron HCl [Zofran] 4 mg PO Q8H PRN 03/19/19 03/19/19 History Allergies Allergy/AdvReac Type Severity Reaction Status Date / Time latex Allergy Rash/Hives Verified 03/19/19 23:32 ragweed pollen Allergy Unknown Verified 03/19/19 23:32 Physical Exam Vitals: Vital Signs Temp Pulse Resp BP Pulse Ox 03/21/19 14:45 15 03/21/19 11:41 98.0 F 85 15 131/81 96 03/21/19 08:00 16 03/21/19 05:00 97.7 F 95 16 121/67 97 03/20/19 21:00 98.1 F 103 H 20 131/78 95 Intake and Output 03/21/19 03/21/19 03/21/19 06:59 14:59 22:59 Other: # Voids 2 2 HEENT: Anicteric, conjunctiva are pink and moist, nasal or oral mucosa are without lesion. The neck is supple without lymphadenopathy or thyromegaly. No oral thrush is noted. Lungs: good bilateral air entry, there are no significant crackles or wheezes, no bronchial sounds or egophony. Heart: Regular rate and rhythm with an audible S1-S2, no S3 or S4 noted. No significant murmur click or rub noted. Abdomen: Positive bowel sounds, soft and nontender, there is no palpable masses or organomegaly. Abdomen is without guarding or rebound. Extremities:Upper extremities reveal evidence of equal pulses, no lesions are seen, no petechiae or telangiectasia. The lower extremities Capillary refill was brisk.Reveal evidence of some bilateral lower extremity edema there is evidence of erythema that is present from the dorsum of the foot to just below the knee. It is not tender and appears to be somewhat petechial in nature Skin: evidence of the extensive area of erythema on the right anterior chest wall that initiates just below his palpable [facility] that goes to the midclavicular line to the mid axillary line,The site is with some indurated but not very tender. There is erythema but there is not open ulceration at this time. He's had no drainage , the eschar has been flaking off with healed tissue beneath. The port itself is not tender. Neuro:Awake and alert, oriented to person place and time. No gross focal sensory motor deficits noted. Musculoskeletal: Patient is ambulatory No acute joint effusions are noted. Lymph: No cervical, supraclavicular, axillary, epitrochlear, or inguinal lymphadenopathy was noted. Results CBC & Chem 7: 03/19/19 23:23 03/19/19 23:23 Labs: Microbiology - Last 24 Hours (Table) 03/20/19 01:50 Urine Culture - Final Urine,Voided 03/19/19 23:23 Blood Culture - Preliminary Blood No Growth after 24 hours Laboratory Results WBC 1.3 k/uL (3.8-10.6) L* 03/19/19 23:23 RBC 3.17 m/uL (4.30-5.90) L 03/19/19 23:23 Hgb 8.7 gm/dL (13.0-17.5) L 03/19/19 23:23 Hct 28.0 % (39.0-53.0) L 03/19/19 23:23 MCV 88.3 fL (80.0-100.0) 03/19/19 23:23 MCH 27.5 pg (25.0-35.0) 03/19/19 23:23 MCHC 31.1 g/dL (31.0-37.0) 03/19/19 23:23 RDW 20.9 % (11.5-15.5) H 03/19/19 23:23 Plt Count 325 k/uL (150-450) 03/19/19 23:23 Neutrophils % (Manual) 26 % 03/19/19 23:23 Band Neutrophils % 11 % 03/19/19 23:23 Lymphocytes % (Manual) 35 % 03/19/19 23:23 Monocytes % (Manual) 16 % 03/19/19 23:23 Eosinophils % (Manual) 12 % 03/19/19 23:23 Neutrophils # PROGRAM AIDE GROUP WORK 03/19/19 23:23 Neutrophils # (Manual) 0.40 k/uL (1.3-7.7) L* 03/19/19 23:23 Lymphocytes # (Manual) 0.46 k/uL (1.0-4.8) L 03/19/19 23:23 Monocytes # (Manual) 0.21 k/uL (0-1.0) 03/19/19 23:23 Eosinophils # (Manual) 0.16 k/uL (0-0.7) 03/19/19 23:23 Nucleated RBCs 0 /100 WBC (0-0) 03/19/19 23:23 Manual Slide Review Performed 03/19/19 23:23 Hypochromasia Slight 03/19/19 23:23 Poikilocytosis Moderate 03/19/19 23:23 Anisocytosis Moderate 03/19/19 23:23 Anisocytosis (manual) Present 03/19/19 23:23 Ovalocytes Present 03/19/19 23:23 Sodium 136 mmol/L (137-145) L 03/19/19 23:23 Potassium 3.7 mmol/L (3.5-5.1) 03/19/19 23:23 Chloride 108 mmol/L (98-107) H 03/19/19 23:23 Carbon Dioxide 21 mmol/L (22-30) L 03/19/19 23:23 Anion Gap 7 mmol/L 03/19/19 23:23 BUN 11 mg/dL (9-20) 03/19/19 23:23 Creatinine 0.96 mg/dL (0.66-1.25) 03/19/19 23:23 Est GFR (CKD-EPI)AfAm >90 (>60 ml/min/1.73 sqM) 03/19/19 23:23 Est GFR (CKD-EPI)NonAf 89 (>60 ml/min/1.73 sqM) 03/19/19 23:23 Glucose 97 mg/dL (74-99) 03/19/19 23:23 Plasma Lactic Acid Marcos 0.8 mmol/L (0.7-2.0) 03/19/19 23:23 Calcium 8.6 mg/dL (8.4-10.2) 03/19/19 23:23 Phosphorus 3.1 mg/dL (2.5-4.5) 03/19/19 23:23 Magnesium 1.8 mg/dL (1.6-2.3) 03/19/19 23:23 Total Bilirubin 0.5 mg/dL (0.2-1.3) 03/19/19 23:23 AST 17 U/L (17-59) 03/19/19 23:23 ALT 18 U/L (21-72) L 03/19/19 23:23 Alkaline Phosphatase 67 U/L (38-126) 03/19/19 23:23 Total Protein 5.5 g/dL (6.3-8.2) L 03/19/19 23:23 Albumin 3.4 g/dL (3.5-5.0) L 03/19/19 23:23 Urine Color Yellow 03/20/19 01:50 Urine Appearance Turbid (Clear) 03/20/19 01:50 Urine pH 5.5 (5.0-8.0) 03/20/19 01:50 Ur Specific [place] 1.029 (1.001-1.035) 03/20/19 01:50 Urine Protein Trace (Negative) H 03/20/19 01:50 Urine Glucose (UA) Negative (Negative) 03/20/19 01:50 Urine Ketones Negative (Negative) 03/20/19 01:50 Urine Blood Negative (Negative) 03/20/19 01:50 Urine Nitrite Negative (Negative) 03/20/19 01:50 Urine Bilirubin Negative (Negative) 03/20/19 01:50 Urine Urobilinogen <2.0 mg/dL (<2.0) 03/20/19 01:50 Ur Leukocyte Esterase Negative (Negative) 03/20/19 01:50 Ur Squamous Epith Cells <1 /hpf (0-4) 03/20/19 01:50 Amorphous Sediment Rare /hpf (None) H 03/20/19 01:50 Urine Mucus Rare /hpf (None) H 03/20/19 01:50 Influenza Type A RNA Not Detected (Not Detectd) 03/19/19 23:04 Influenza Type B (PCR) Not Detected (Not Detectd) 03/19/19 23:04 Microbiology 03/20/19 01:50 Urine,Voided Urine Culture - Final 03/19/19 23:23 Blood Blood Culture - Preliminary No Growth after 24 hours Assessment and Plan (1) Bicytopenia Current Visit: No Status: Acute Priority: High Code(s): D75.89 - OTHER SPECIFIED DISEASES OF BLOOD AND BLOOD-FORMING ORGANS SNOMED Code(s): 18994582 (2) Extravasation of vesicant antineoplastic chemotherapy, subsequent encounter Narrative/Plan: 54-year-old male presents to Hospital because of increasing pain and discomfort in the right anterior chest wall as well as fever. As noted the patient has a known history of recently diagnosed T-cell non-Hodgkin lymphoma And is receiving ongoing chemotherapy. The site of extravasation is improved from the first ev aluation. There is 1 small area of any residual eschar and it is evident underneath the edges of the tissue is completely healed. The [facility] is easily palpated and is nontender. There is no stiff him fluctuance throughout this tissue. The area of erythema is not very tender. No other masses palpable. We'll continue some local care with mupirocin which has been very helpful to the site. At this time he does not have fever and would not need ongoing extensive workup at this time. Oncology is following. Likely discharge home soon with his oral antibiotic therapy. The lower extremity recently having some difficulty with edema and redness is improved and may continue to wear compression stockings. Current Visit: No Status: Acute Code(s): T80.810D - EXTRAVASATION OF VESICANT ANTINEOPLASTIC CHEMOTHERAPY, SUBS SNOMED Code(s): 403811273 (3) Non-Hodgkin's lymphoma in adult Current Visit: No Status: Acute Priority: High Code(s): C85.90 - NON- HODGKIN LYMPHOMA, UNSPECIFIED, UNSPECIFIED SITE SNOMED Code(s): 959824081
[2019-03-21] MEDS: CLOTRIMAZOLE TROCHE 10 MG TROCHE MUCOUS MEM SCH ×3 (17:32→23:06)
[2019-03-21] MEDS: HYDROcodone/APAP 5-325MG 1 EACH TAB PO PRN (20:44)
[2019-03-22] MEDS ORDERED: VANCOMYCIN TROUGH DUE 1 EACH MISC MISCELLANE ONE (05:00)
[2019-03-22] MEDS: SODIUM CHLORIDE 0.9% 1,000 ML IV SCH ×2 (05:54→14:19)
[2019-03-22] MEDS: CLOTRIMAZOLE TROCHE 10 MG TROCHE MUCOUS MEM SCH ×2 (05:54→13:15)
[2019-03-22] MEDS: VANCOMYCIN 1,750 MG in SODIUM CHLORIDE 0.9% 500 ML 500 ML IVPB SCH (05:54)
[2019-03-22] MEDS ORDERED: FLUCONAZOLE 100 MG TAB PO SCH (09:00)
[2019-03-22 09:39] LABS: African American GFR (CKD) >90 (>60 ml/min/1.73 sqM); Anion Gap 7 mmol/L; Blood Urea Nitrogen 3 mg/dL (9-20); Calcium 8.5 mg/dL (8.4-10.2); Carbon Dioxide 21 mmol/L (22-30); Chloride 113 mmol/L (98-107); Glucose 107 mg/dL (74-99); Potassium 3.4 mmol/L (3.5-5.1); Sodium 141 mmol/L (137-145)
[2019-03-22] MEDS: PANTOPRAZOLE 40 MG TABLET PO SCH (09:45)
[2019-03-22] MEDS: ALLOPURINOL 300 MG TAB PO SCH (09:45)
[2019-03-22] MEDS: ENOXAPARIN 40 MG/0.4 ML SYRINGE SQ SCH (09:45)
[2019-03-22] MEDS: FUROSEMIDE 20 MG TAB PO SCH (09:45)
[2019-03-22] MEDS: PIPERACILLIN-TAZOBACTAM 3.375 GM in SODIUM CHLORIDE 0.9% 100 ML IVPB SCH (09:46)
[2019-03-22] MEDS: METOPROLOL TARTRATE 25 MG TAB PO SCH (09:46)
[2019-03-22 09:52] LABS: Anisocytosis Moderate; Basophils # (A) 0.1 k/uL (0-0.2); Basophils % (A) 1 %; Eosinophils # (A) 0.2 k/uL (0-0.7); Eosinophils % (A) 2 %; HCT 29.8 % (39.0-53.0); Hypochromasia Marked; Lymphocytes # (A) 0.7 k/uL (1.0-4.8); Lymphocytes % (A) 7 %; MCH 27.5 pg (25.0-35.0); MCHC 30.4 g/dL (31.0-37.0); MCV 90.6 fL (80.0-100.0); Mean Platelet Volume 7.8; Monocytes # (A) 0.7 k/uL (0-1.0); Monocytes % (A) 7 %; Neutrophils % (A) 82 %; Platelet Count 333 k/uL (150-450); Poikilocytosis Moderate; RBC 3.29 m/uL (4.30-5.90); RDW 20.8 % (11.5-15.5); WBC 10.9 k/uL (3.8-10.6)
[2019-03-22] MEDS ORDERED: Potassium Replacement Protocol 1 EACH MISC MISCELLANE PRN (10:16)
[2019-03-22] MEDS: MUPIROCIN 2% OINT 22 GM TUBE TOPICAL SCH (11:29)
[2019-03-22 13:09] VITALS: BP 148/84; PULSE 87; RESP 17; TEMP 97.7
[2019-03-22] MEDS: FOLIC ACID 1 MG TAB PO SCH (13:15)
--- NOTE | 2019-03-22 13:36 | P.DS ---
Providers Date of admission: 03/19/19 23:57 Expected date of discharge: 03/22/19 Attending physician: Randy Leroy Consults: 03/20/19 10:34 Consult Physician Routine Consulting Provider: Dennys Zafar Consult Reason/Comments: LYMPHOMA Do you want consulting provider notified?: Yes 03/20/19 10:36 Consult Physician Routine Consulting Provider: Randy Merchant Consult Reason/Comments: CELLULITIS Do you want consulting provider notified?: Already Contacted Primary care physician: [place] [facility] Course: Final Diagnoses: Anterior right chest wall cellulitis, secondary to hx of chemotherapy extravasation into the chest wall tissue around the buried port. No abscess per US reported Neutropenic sepsis,R/T Non-Hodgkin lymphoma on chemotherapy,resolved Normocytic Anemia, suspect due to chemotherapy, lymphoma Morbid obesity Hypertension History of tobacco abuse, quit December 2018 Dyslipidemia Hospital course: THis is a 54-year-old with history of non-Hodgkin's lymphoma, chronic anemia, transferred from [facility], with Neutropenic fever, cellulitis of the anterior chest wall, and some infiltrate on the x-ray as well which however seems to be improving compared to February 2019. Right chest ultrasound did not report mass, no abscess. Evaluated by oncology and infectious disease. Maintained on IV antibiotics, filgrastin. Significant clinical impro vement, WBC up to 10.9, afebrile, blood cultures negative, urine cultures negative, 95% O2 sat on room air. Cleared by oncology and infectious disease for discharge. Patient will be discharged home in stable condition with guarded prognosis. Exam Gen.: Patient is alert and oriented 3, no acute distress Cardiovascular: Regular rate and rhythm, S1/S2 Lungs: Diminished bilateral bases, no rhonchi, crackles or wheezing Abdomen: Soft nontender nondistended positive bowel sounds SKIN: Right anterior chest wall dry, no tenderness, no drainage with erythema, eschar flaking off. Microbiology 03/19/19 23:23 Blood Blood Culture - Preliminary No Growth after 48 hours 03/20/19 01:50 Urine,Voided Urine Culture - Final The impression and plan of care has been dictated as directed. : I performed a history and examination of this patient, discussed the same with the dictator. I agree with the dictator's note ,documented as a scribe. Any additional findings or plans will be noted. The impression and plan of care has been dictated as directed. : I performed a history and examination of this patient, discussed the same with the dictator. I agree with the dictator's note ,documented as a scribe. Any additional findings or plans will be noted. Patient Condition at Discharge: Stable Plan - Discharge Summary New Discharge Prescriptions: New Cefdinir 300 mg PO Q12HR #14 cap Fluconazole [Diflucan] 100 mg PO DAILY #7 tab Continue Metoprolol Tartrate [Lopressor] 25 mg PO BID Allopurinol [Zyloprim] 300 mg PO DAILY Folic Acid 1 mg PO DAILY Furosemide [Lasix] 20 mg PO DAILY Loperamide [Imodium] 2 mg PO QID PRN cap PRN Reason: Diarrhea Pantoprazole [Protonix] 40 mg PO AC-BID #60 tablet. HYDROcodone/APAP 5-325MG [[place] 5-325] 1 tab PO Q6H PRN PRN Reason: Pain Mupirocin Calcium [Bactroban 2% Cream] 1 applic TOPICAL BID #22 gm Nystatin 500,000 unit PO QID Ondansetron HCl [Zofran] 4 mg PO Q8H PRN PRN Reason: Nausea Discharge Medication List Allopurinol [Zyloprim] 300 mg PO DAILY 02/19/19 [History] Folic Acid 1 mg PO DAILY 02/19/19 [History] Furosemide [Lasix] 20 mg PO DAILY 02/19/19 [History] Metoprolol Tartrate [Lopressor] 25 mg PO BID 02/19/19 [History] Loperamide [Imodium] 2 mg PO QID PRN cap 02/23/19 [Rx] Pantoprazole [Protonix] 40 mg PO AC-BID #60 tablet. 02/23/19 [Rx] HYDROcodone/APAP 5-325MG [[place] 5-325] 1 tab PO Q6H PRN 03/03/19 [History] Mupirocin Calcium [Bactroban 2% Cream] 1 applic TOPICAL BID #22 gm 03/09/19 [Rx] Nystatin 500,000 unit PO QID 03/19/19 [History] Ondansetron HCl [Zofran] 4 mg PO Q8H PRN 03/19/19 [History] Cefdinir 300 mg PO Q12HR #14 cap 03/22/19 [Rx] Fluconazole [Diflucan] 100 mg PO DAILY #7 tab 03/22/19 [Rx] Follow up Appointment(s)/Referral(s): Randy Leroy MD [Primary Care Provider] - 03/26/19 9:45 am (Patient needs to call insurance [email or web address] and switch his primary care physician to Dr. Randy Leroy prior to his appointment on the or Dr. Leroy will not be able to see the patient. ) Ambulatory/Diagnostic Orders: Complete Blood Count w/diff [LAB.AMB] Time Frame: 3 Days, Location: None Selected Patient Instructions/Handouts: Neutropenia (DC) Activity/Diet/Wound Care/Special Instructions: C Diff Pending.Antibiotics/antifungals as per ID. Pending clearance from both oncology and ID Continue Wound care as ordered inpatient. Discharge Disposition: HOME WITH HOME HEALTH SERVICES
--- NOTE | 2019-03-22 14:02 | P.PN ---
Subjective Progress Note Date: 03/22/19 Principal diagnosis: febrile neutropenia In f/u pt has had no fever, tolerating oral intake, cough in not productive, no abd pain, pt states "explosive disrrhea", stool that was collected was solid. He is ambulatory independently Objective - Vital Signs Vital signs: Vital Signs Temp 97.7 F 03/22/19 13:00 Pulse 87 03/22/19 13:00 Resp 17 03/22/19 13:00 BP 148/84 03/22/19 13:00 Pulse Ox 97 03/22/19 13:00 Intake & Output 03/21/19 03/22/19 03/22/19 18:59 06:59 18:59 Intake Total 1910 Output Total 400 Balance 1510 Intake: Intake, IV Titration 600 Amount Sodium Chloride 0.9% 1, 600 000 ml @ 150 mls/hr IV . Q6H40M [facility] Rx#:[id number] Oral 1310 Output: Urine 400 Other: Voiding Method Toilet # Voids 2 2 - Constitutional General appearance: Present: cooperative, no acute distress, obese - EENT Eyes: Present: anicteric sclerae, EOMI ENT: Present: hearing grossly normal, normal oropharynx - Respiratory Respiratory: bilateral: CTA - Cardiovascular Rhythm: regular Heart sounds: normal: S1, S2 - Peripheral edema leg Peripheral Edema: bilateral: None - Gastrointestinal General gastrointestinal: Present: normal bowel sounds, soft. Absent: absent bowel sounds, decreased bowel sounds, distended, hepatomegaly, hyperactive bowel sounds, organomegaly, rigid, scaphoid, splenomegaly, tenderness, umbilical hernia, ventral hernia - Integumentary Integumentary Comment(s): right chest wall has 6-7cm, in greatest dimension, irregular area of induration around port, scab continues to decrease in size, the area is less tender, not warm to touch Integumentary: Present: pale - Neurologic Neurologic: Present: CNII-XII intact - Musculoskeletal Musculoskeletal: Present: strength equal bilaterally - Psychiatric Psychiatric: Present: A&O x's 3, appropriate affect - Labs CBC & Chem 7: 03/22/19 05:27 03/22/19 05:27 Labs: Abnormal Lab Results - Last 24 Hours (Table) 03/22/19 03/22/19 03/22/19 Range/Units 05:27 05:27 05:28 WBC 10.9 H (3.8-10.6) k/uL RBC 3.29 L (4.30-5.90) m/uL Hgb 9.0 L (13.0-17.5) gm/dL Hct 29.8 L (39.0-53.0) % MCHC 30.4 L (31.0-37.0) g/dL RDW 20.8 H (11.5-15.5) % Neutrophils # 9.0 H (1.3-7.7) k/uL Lymphocytes # 0.7 L (1.0-4.8) k/uL Potassium 3.4 L (3.5-5.1) mmol/L Chloride 113 H (98-107) mmol/L Carbon Dioxide 21 L (22-30) mmol/L BUN 3 L (9-20) mg/dL Glucose 107 H (74-99) mg/dL Magnesium 1.5 L (1.6-2.3) mg/dL Microbiology - Last 24 Hours (Table) 03/19/19 23:23 Blood Culture - Preliminary Blood No Growth after 48 hours 03/20/19 01:50 Urine Culture - Final Urine,Voided Assessment and Plan (1) Neutropenic fever Narrative/Plan: Agree with Abx and antifungal Rx on D/C, to complete treatment Current Visit: Yes Status: Resolved Priority: High Code(s): D70.9 - NEUTROPENIA, UNSPECIFIED; R50.81 - FEVER PRESENTING WITH CONDITIONS CLASSIFIED ELSEWHERE SNOMED Code(s): 010355544 (2) Bicytopenia Narrative/Plan: WBC recovered with GCSF, anemia stable, slightly improved Current Visit: Yes Status: Acute Priority: Medium Code(s): D75.89 - OTHER SPECIFIED DISEASES OF BLOOD AND BLOOD-FORMING ORGANS SNOMED Code(s): 67404046 (3) Cellulitis of chest wall Narrative/Plan: Continues to improve, cont treatment per ID. Port removal planned after complete healing of area Current Visit: No Status: Chronic Priority: Medium Code(s): L03.313 - CELLULITIS OF CHEST WALL SNOMED Code(s): 61881225 (4) Non-Hodgkin's lymphoma in adult Narrative/Plan: Pt continues on treatment, tolerating overall well. Current Visit: No Status: Chronic Priority: Medium Code(s): C85.90 - NON- HODGKIN LYMPHOMA, UNSPECIFIED, UNSPECIFIED SITE SNOMED Code(s): 435029192
[2019-03-22] MEDS: FILGRASTIM-SNDZ 480 MCG/0.8 ML SYRINGE SQ SCH (14:59)
== END 2019-03-22 16:34 | disposition home health service (06) | DRG 872 ==
LOC: EC 22:24 → 3NMEDONC 23:57
PROVIDERS: ADMIT Family Medicine; ATTEND Family Medicine
DX: A41.89 Other specified sepsis (principal); C81.90 Hodgkin lymphoma, unspecified, unspecified site; C84.40 Peripheral T-cell lymphoma, not elsewhere classified, unspecified site; L03.313 Cellulitis of chest wall; T80.810A Extravasation of vesicant antineoplastic chemotherapy, initial encounter; D70.1 Agranulocytosis secondary to cancer chemotherapy; D70.3 Neutropenia due to infection; E66.01 Morbid (severe) obesity due to excess calories; Z68.33 Body mass index [BMI] 33.0-33.9, adult; E78.5 Hyperlipidemia, unspecified; F32.9 Major depressive disorder, single episode, unspecified; I11.9 Hypertensive heart disease without heart failure; N13.9 Obstructive and reflux uropathy, unspecified; R50.81 Fever presenting with conditions classified elsewhere; T45.1X5A Adverse effect of antineoplastic and immunosuppressive drugs, initial encounter; Z79.899 Other long term (current) drug therapy; Z87.891 Personal history of nicotine dependence; Z91.040 Latex allergy status
CPT/HCPCS: 36415; 71046; 80048; 80053; 80202; 81001; 83605; 83735; 84100; 85025; 87040; 87086; 87502; 93005; 96360; 96361; 99291

== ENCOUNTER → 2019-04-09 | Outpatient (CLI) | payer OTHER ==
--- NOTE | 2019-04-12 11:41 | PE ---
EXAMINATION TYPE: PET CT fusion skull to thigh DATE OF EXAM: 04/09/2019 CLINICAL HISTORY: 54-year-old male initial staging lymphoma, chest and groin TECHNIQUE: Following the intravenous administration of 11.8 mCi of F-18 FDG, whole body images are performed from the skull base to the midthigh. Images are reviewed on the computer in the coronal, a xial, and sagittal planes. Reconstructed rotating images are created on independent workstation and reviewed on the computer. A localization and attenuation correction CT is performed in conjunction with the PET scan. Glucose level: 97 mg/dL CTDI: 5.04 mGy DLP: 507.56 mGy-cm COMPARISON: 03/19/2019, 02/19/2019, and 12/14/2018 FINDINGS: PET: Physiologic FDG uptake within the neck. There is some subcutaneous fat stranding about the patient's anterior right chest wall around the cat heter site with associated mild uptake, max SUV 2.3. Redemonstrated mediastinal lymphadenopathy. Some associated calcifications are present. Lymphadenopat hy shows gradual decrease in size, for example, right paratracheal measuring 4.4 x 2.6 cm, currently (versus 6.0 x 2.6 cm and 4.6 x 2.9 cm on 02/19/2019 and 03/19/2019, respectively). No discrete FDG upta ke is identified. Subcarinal lymph node measures 2.3 cm versus 3.5 cm on 02/19/2019, again without discrete FDG uptake. There is a 9 mm right retrocrural lymph node which is relatively stable in size but shows intense FDG uptake, max SUV 5.2. Average liver SUV 2.3. Moderate right-sided hydronephrosis is stable to slightly increased as compared to 12/14/2018. Diffuse retroperitoneal lymphadenopathy shows no discrete FDG uptake and has decreased in size. For e xample, currently measuring 1 cm left paraaortic versus 2.4 cm on 12/14/2018. Currently measuring 1.6 cm aortocaval versus 4.5 cm previously. Spleen mildly enlarged measuring 14.7 cm versus 18.3 cm, previously. No discrete FDG uptake. Bulky, partially calcified lymphadenopathy along the right iliac chain is redemonstrated. This area s hows very intense FDG uptake, max SUV 23.0. Lobulated soft tissue along the superior aspect of the conglomerate lymphadenopathy has increased in size measuring 6.2 cm wide now versus 5.2 cm wide on 12/14/2018. Along the mid aspect that is partiall y calcified, it measures 7.1 cm versus 6.0 cm on 12/14/2018. More inferiorly, it measures 6.6 cm versu s 7.5 cm, previously. All of these areas show variable intense hypermetabolism. Separate adjacent right external iliac chain lymph node measures 2.9 cm versus 2.5 cm, previously, ma x SUV 14.8. ATTENUATION CORRECTION CT: Mild lobulated mucosal thickening along the left greater than right fourth maxillary sinuses. Small a mount of trapped fluid in the inferior right mastoid air cells. No cervical lymphadenopathy. Right anterior chest wall injection port with catheter tip at the mid SVC level. A left PICC line is also present, catheter tip at the confluence of the brachiocephalic veins. Heart normal size without pericardial effusion. Aorta normal caliber with conventional arch vessel br anching anatomy. Moderate bilateral gynecomastia. Strandy areas of atelectasis in the lungs without c onsolidation or pleural effusion. Prominent artifacts due to patient's arms down and large body habitus. Cholelithiasis with gallstone s measuring 1.1 cm. No dilated small bowel, free fluid, or free air. No pericolonic inflammatory mejía ge. Circumferential bladder wall thickening likely relates to nondistention. Right-sided pelvic phlebolit h. Bones: Degenerative changes of the hips and mid to lower lumbar spine. IMPRESSION: 1. Mixed findings. Improvement as follows: Enlarged mediastinal lymph nodes are progressively decreas ing in size (right paratracheal 4.4 x 2.6 cm versus 4.6 x 2.9 cm, previously) and show no discrete FD G uptake suggesting successful treatment response. Retroperitoneal lymphadenopathy also shows no disc rete FDG uptake suggesting successful treatment response (measuring 1.6 cm versus 4.5 cm, previously) . 2. Persistent vs recurrent disease as follows: 9 mm hypermetabolic right retrocrural lymph node and hypermetabolic conglomerate right iliac chain lymphadenopathy. Overall bulk has increased especially along the superior aspect of the conglomerate mass (6.2 cm versus 5.2 cm, previously). 3. Moderate right-sided hydronephrosis likely secondary to extrinsic compression of the distal right ureter. The degree of hydronephrosis is slightly increased from prior exam. 4. Improving splenomegaly (currently 14.7 cm versus 18.3 cm, previously). 5. Right-sided chest wall injection port. There is some mild uptake and edema of the chest wall in th is region. Findings may be postsurgical. Correlate to exclude cellulitis. 6. Cholelithiasis. Small amount of trapped fluid in the right mastoid air cells. Correlate for any ma stoid pain to exclude mastoiditis.
== END | disposition home or self-care (01) ==
LOC: RADPETMAIN 16:01
PROVIDERS: ATTEND Internal Medicine Hematology & Oncology
DX: K80.20 Calculus of gallbladder without cholecystitis without obstruction (principal); R16.1 Splenomegaly, not elsewhere classified; R59.0 Localized enlarged lymph nodes; R59.1 Generalized enlarged lymph nodes; N13.30 Unspecified hydronephrosis; C85.88 Other specified types of non-Hodgkin lymphoma, lymph nodes of multiple sites
CPT/HCPCS: 78815; A9552

== ENCOUNTER 2019-04-26 08:39 | Day surgery (SDC) | payer OTHER ==
[2019-04-26 08:57] VITALS: BP 112/71; PULSE 92; RESP 20; TEMP 97.6
[2019-04-26] MEDS ORDERED: ALPRAZolam 0.5 MG TAB PO STA (09:07)
[2019-04-26 09:43] LABS: Mean Platelet Volume 6.4; Platelet Count 246 k/uL (150-450); Prothrombin Time 10.5 sec (9.0-12.0)
--- NOTE | 2019-04-26 17:40 | US ---
EXAMINATION TYPE: US biopsy lymph node DATE OF EXAM: 04/26/2019 HISTORY: Right groin lymphadenopathy FINDINGS: Maximal barrier technique was utilized. The skin overlying a suitable path to one of the p atient's enlarged right groin nodes was localized with ultrasound and the overlying skin prepped and draped. Ultrasound was utilized with sterile technique. Lidocaine was used for local anesthesia. A skin ximena was made with a scalpel. An 18-gauge needle was advanced through a 17-gauge needle coaxia lly under direct ultrasound guidance and core specimen obtained of the mass and submitted in formalin , additional core specimen obtained and submitted on wet Telfa. Following the procedure, hemostasis achieved and the patient is discharged in stable condition without complication. IMPRESSION:STATUS POST ULTRASOUND GUIDED CORE BIOPSY OF right groin adenopath, PATHOLOGY IS PENDING. THIS PROCEDURE IS PERFORMED BY THE UNDERSIGNED.
== END 2019-04-26 10:35 | disposition home or self-care (01) ==
LOC: RADPROMAIN 08:39
PROVIDERS: ATTEND Internal Medicine Hematology & Oncology
DX: R59.0 Localized enlarged lymph nodes (principal); C85.88 Other specified types of non-Hodgkin lymphoma, lymph nodes of multiple sites
CPT/HCPCS: 36415; 38505; 76942; 85049; 85610; 88305

== ENCOUNTER → 2019-05-26 | Day surgery (SDC) | payer OTHER ==
[2019-05-20 08:55] VITALS: BMI 33.9
[~2019-05-26] MED LIST changes: +DEXAMETHASONE SOD PHOSPHATE 10 MG/ML 1 ML VIAL IV ONE; +HEPARIN SODIUM,PORCINE 5,000 UNIT/ML 1 ML VIAL SQ ONE; +KETAMINE 10 MG/ML 20 ML VIAL ONE; +LIDOCAINE 1% 20 ML VIAL (10MG/ML) FOR IV START INTRADERMA PRN; +LIDOCAINE 1% INJ 10MG/ML (20 ML MDV) ONE; +LIDOCAINE 1%-EPI 1:100,000 20 ML VIAL SQ ONE; +MIDAZOLAM 2 MG/2 ML VIAL ONE; +ONDANSETRON 4 MG/2 ML VIAL IVP ONE; +PROPOFOL 10 MG/ML 20 ML VIAL IV ONE; +fentaNYL (PF) 50 MCG/ML 2 ML AMP ONE
--- NOTE | 2019-05-26 10:37 | P.GSHP ---
History of Present Illness H&P Date: 05/26/19 Chief Complaint: History of lymphoma This a 54-year-old male with history of lymphoma. Patient presents today for removal of Port-A-Cath. Patient had a previous subcutaneous infusion of chemotherapy which has created inflammatory reaction at the skin around the Port-A-Cath site. Past Medical History Past Medical History: Asthma, Cancer, GERD/Reflux Additional Past Medical History / Comment(s): Non hodgkins lymphoma. States current anti bx use for port a cath infection. Has had 2 rounds of chemo, last one february or march 2019 History of Any Multi-Drug Resistant Organisms: None Reported Past Surgical History: No Surgical Hx Reported Additional Past Surgical History / Comment(s): Colonoscopy, lymph node biopsy. right chest port a cath Past Anesthesia/Blood Transfusion Reactions: No Reported Reaction Additional Past Anesthesia/Blood Transfusion Reaction / Comment(s): Pt has rec eived blood in past without reaction. Smoking Status: Current every day smoker - Past Family History Father Family Medical History: No Reported History Additional Family Medical History / Comment(s): Father is healthy and is 82 yrs old. Mother Family Medical History: No Reported History Additional Family Medical History / Comment(s): Mother from dementia. Medications and Allergies Home Medications Medication Instructions Recorded Confirmed Type Pantoprazole [Protonix] 40 mg PO AC-BID #60 tablet. 02/23/19 05/26/19 Rx Albuterol Sulfate [Albuterol 2 puff INHALATION Q4-6H PRN 05/20/19 05/26/19 History Sulfate Hfa] Antibiotic 1 tab PO DAILY 05/20/19 History Allergies Allergy/AdvReac Type Severity Reaction Status Date / Time latex Allergy Rash/Hives Verified 05/26/19 10:30 ragweed pollen Allergy Unknown Verified 05/26/19 10:30 Surgical - Exam - General well developed, well nourished, no distress - Eyes PERRL - ENT normal pinna - Neck no masses - Respiratory normal expansion - Cardiovascular Rhythm: regular - Integumentary Inflammation and induration around Port-A-Cath site. In the right subclavian area. Assessment and Plan Assessment: History of lymphoma. We'll perform removal of Port-A-Cath.
[2019-05-26 10:48] VITALS: TEMP 98.1
[2019-05-26 11:30] VITALS: RESP 17
--- NOTE | 2019-05-26 11:37 | P.OP ---
Date of Procedure: 05/26/19 Preoperative Diagnosis: Lymphoma Postoperative Diagnosis: Lymphoma Procedure(s) Performed: Removal of Port-A-Cath Anesthesia: MAC Surgeon: Pacheco Fraire Estimated Blood Loss (ml): 5 Pathology: none sent Condition: stable Disposition: PACU Description of Procedure: The patient's placed on the operative table in supine position. He received IV sedation. The patient had a right subclavian Port-A-Cath there was significant inflammatory changes around the Port-A-Cath. The skin was localized 1% local Xylocaine. Skin was incised and using blunt dissection the Port-A-Cath was dissected free. The Bovie hemostasis. The wound was packed with wet-to-dry Gauze. Patient top procedure well and was sent to recovery room stable condition.
[2019-05-26 11:59] VITALS: BP 133/80; PULSE 80
== END | disposition home or self-care (01) ==
LOC: OR 10:14
PROVIDERS: ATTEND Surgery
DX: T82.7XXA Infection and inflammatory reaction due to other cardiac and vascular devices, implants and grafts, initial encounter (principal); Y71.8 Miscellaneous cardiovascular devices associated with adverse incidents, not elsewhere classified; C85.90 Non-Hodgkin lymphoma, unspecified, unspecified site; F17.200 Nicotine dependence, unspecified, uncomplicated; J45.909 Unspecified asthma, uncomplicated; K21.9 Gastro-esophageal reflux disease without esophagitis; Z79.899 Other long term (current) drug therapy; Z91.040 Latex allergy status; Z91.048 Other nonmedicinal substance allergy status
CPT/HCPCS: 36590; J2250; J1644; J1100; J0690; J2405; J2001; J3010; J2704

== ENCOUNTER 2019-06-02 13:47 | Inpatient (IN) | payer OTHER ==
[2019-06-02] MEDS ORDERED: KETOROLAC 60 MG/2 ML VIAL IVP STA (14:21)
[2019-06-02] MEDS ORDERED: HYDROmorphone 1 MG/ML 1 ML SYRINGE IVP STA (14:21)
[2019-06-02] MEDS ORDERED: ONDANSETRON 4 MG/2 ML VIAL IVP STA (14:21)
[2019-06-02] MEDS ORDERED: PIPERACILLIN-TAZOBACTAM 3.375 GM in SODIUM CHLORIDE 0.9% 100 ML IVPB STA (14:22)
[2019-06-02] MEDS ORDERED: RX INFO: IV CONTRAST WAS GIVEN 1 EACH MISC MISCELLANE PRN (14:23)
--- NOTE | 2019-06-02 14:44 | ED ---
General Adult HPI - General Chief complaint: Recheck/Abnormal Lab/Rx Stated complaint: port infection Time Seen by Provider: 06/02/19 14:00 Source: patient, RN notes reviewed Mode of arrival: ambulatory - History of Present Illness Initial comments: This a 54-year-old male who presents to the emergency department stating that he had a extravasation of chemotherapy back in January since that time he has been having the wound changed by visiting nurse but more recently the areas become much more reddened and more painful and according to the patient was expressing a lot of pus out of the wound so the visiting nurse sent him to the hospital. Patient denies any fever chills. Patient states the pain is definitely much worse. Patient denies any shortness of breath or difficulty breathing. Patient denies any nausea vomiting diarrhea. Patient denies any other pain except over the site where the extravasation occurred - Related Data Home Medications Medication Instructions Recorded Confirmed Albuterol Sulfate [Albuterol 2 puff INHALATION RT-Q4H PRN 05/20/19 06/02/19 Sulfate Hfa] Allergies Allergy/AdvReac Type Severity Reaction Status Date / Time latex Allergy Rash/Hives Verified 06/02/19 15:18 ragweed pollen Allergy Unknown Verified 06/02/19 15:18 Review of Systems ROS Statement: Those systems with pertinent positive or pertinent negative responses have been documented in the HPI. ROS Other: All systems not noted in ROS Statement are negative. Past Medical History Past Medical History: Asthma, Cancer, GERD/Reflux Additional Past Medical History / Comment(s): Non hodgkins lymphoma. States current anti bx use for port a cath infection. Has had 2 rounds of chemo, last one february or march 2019 History of Any Multi-Drug Resistant Organisms: None Reported Past Surgical History: No Surgical Hx Reported Additional Past Surgical History / Comment(s): Colonoscopy, lymph node biopsy. right chest port a cath Past Anesthesia/Blood Transfusion Reactions: No Reported Reaction Additional Past Anesthesia/Blood Transfusion Reaction / Comment(s): Pt has received blood in past without reaction. Past Psychological History: Bipolar, Depression Smoking Status: Current every day smoker Past Alcohol Use History: Daily Past Drug Use History: Marijuana - Past Family History Father Family Medical History: No Reported History Additional Family Medical History / Comment(s): Father is healthy and is 82 yrs old. Mother Family Medical History: No Reported History Additional Family Medical History / Comment(s): Mother from dementia. General Exam - General Exam Comments Initial Comments: GENERAL: Patient is well-developed and well-nourished. Patient is nontoxic and well- hydrated and is in mild distress. ENT: Neck is soft and supple. No significant lymphadenopathy is noted. Oropharynx is clear. Moist mucous membranes. Neck has full range of motion without eliciting any pain. EYES: The sclera were anicteric and conjunctiva were pink and moist. Extraocular movements were intact and pupils were equal round and reactive to light. Eyelids were unremarkable. PULMONARY: Unlabored respirations. Good breath sounds bilaterally. No audible rales rhonchi or wheezing was noted. CARDIOVASCULAR: There is a regular rate and rhythm without any murmurs gallops or rubs. Patient has a large open chest wound on the left upper chest wall it is surrounded by quite a bit of erythema is very malodorous and tender to touch. ABDOMEN: Soft and nontender with normal bowel sounds. No palpable organomegaly was noted. There is no palpable pulsatile mass. SKIN: Skin is clear with no lesions or rashes and otherwise unremarkable. NEUROLOGIC: Patient is alert and oriented x3. Cranial nerves II through XII are grossly intact. Motor and sensory are also intact. Normal speech, volume and content. Symmetrical smile. MUSCULOSKELETAL: Normal extremities with adequate strength and full range of motion. LYMPHATICS: No significant lymphadenopathy is noted PSYCHIATRIC: Normal psychiatric evaluation. Course Vital Signs 06/02/19 14:00 Temperature 98.6 F Pulse Rate 101 H Respiratory 20 Rate Blood Pressure 167/88 O2 Sat by Pulse 98 Oximetry Medical Decision Making - Medical Decision Making I spoke with Dr. Leroy he agreed to admit the patient admitted the patient and wrote admitting orders. I consult infectious disease - Lab Data Result diagrams: 06/02/19 14:55 06/02/19 14:55 Lab Results 06/02/19 06/02/19 06/02/19 Range/Units 14:55 14:55 14:55 WBC 7.7 (3.8-10.6) k/uL RBC 5.68 (4.30-5.90) m/uL Hgb 15.9 (13.0-17.5) gm/dL Hct 49.6 (39.0-53.0) % MCV 87.4 (80.0-100.0) fL MCH 28.0 (25.0-35.0) pg MCHC 32.1 (31.0-37.0) g/dL RDW 16.3 H (11.5-15.5) % Plt Count 248 (150-450) k/uL Neutrophils % 68 % Lymphocytes % 22 % Monocytes % 6 % Eosinophils % 3 % Basophils % 1 % Neutrophils # 5.2 (1.3-7.7) k/uL Lymphocytes # 1.7 (1.0-4.8) k/uL Monocytes # 0.4 (0-1.0) k/uL Eosinophils # 0.2 (0-0.7) k/uL Basophils # 0.1 (0-0.2) k/uL Anisocytosis Slight PT (9.0-12.0) sec INR (<1.2) APTT (22.0-30.0) sec Sodium 140 (137-145) mmol/L Potassium 3.7 (3.5-5.1) mmol/L Chloride 106 (98-107) mmol/L Carbon Dioxide 22 (22-30) mmol/L Anion Gap 12 mmol/L BUN 14 (9-20) mg/dL Creatinine 0.96 (0.66-1.25) mg/dL Est GFR (CKD-EPI)AfAm >90 (>60 ml/min/1.73 sqM) Est GFR (CKD-EPI)NonAf 89 (>60 ml/min/1.73 sqM) Glucose 127 H (74-99) mg/dL Plasma Lactic Acid Marcos 1.6 (0.7-2.0) mmol/L Calcium 9.8 (8.4-10.2) mg/dL Total Bilirubin 0.4 (0.2-1.3) mg/dL AST 18 (17-59) U/L ALT 13 L (21-72) U/L Alkaline Phosphatase 87 (38-126) U/L Total Protein 7.1 (6.3-8.2) g/dL Albumin 4.4 (3.5-5.0) g/dL 06/02/19 Range/Units 14:55 WBC (3.8-10.6) k/uL RBC (4.30-5.90) m/uL Hgb (13.0-17.5) gm/dL Hct (39.0-53.0) % MCV (80.0-100.0) fL MCH (25.0-35.0) pg MCHC (31.0-37.0) g/dL RDW (11.5-15.5) % Plt Count (150-450) k/uL Neutrophils % % Lymphocytes % % Monocytes % % Eosinophils % % Basophils % % Neutrophils # (1.3-7.7) k/uL Lymphocytes # (1.0-4.8) k/uL Monocytes # (0-1.0) k/uL Eosinophils # (0-0.7) k/uL Basophils # (0-0.2) k/uL Anisocytosis PT 9.9 (9.0-12.0) sec INR 0.9 (<1.2) APTT 24.8 (22.0-30.0) sec Sodium (137-145) mmol/L Potassium (3.5-5.1) mmol/L Chloride (98-107) mmol/L Carbon Dioxide (22-30) mmol/L Anion Gap mmol/L BUN (9-20) mg/dL Creatinine (0.66-1.25) mg/dL Est GFR (CKD-EPI)AfAm (>60 ml/min/1.73 sqM) Est GFR (CKD-EPI)NonAf (>60 ml/min/1.73 sqM) Glucose (74-99) mg/dL Plasma Lactic Acid Marcos (0.7-2.0) mmol/L Calcium (8.4-10.2) mg/dL Total Bilirubin (0.2-1.3) mg/dL AST (17-59) U/L ALT (21-72) U/L Alkaline Phosphatase (38-126) U/L Total Protein (6.3-8.2) g/dL Albumin (3.5-5.0) g/dL Disposition Clinical Impression: Encounter for wound re-check, Cellulitis Disposition: ADMITTED IP TO THIS [facility] Time of Disposition: 16:14
[2019-06-02] MEDS: SODIUM CHLORIDE 0.9% 500 ML 500 ML IV SCH ×2 (15:10→15:11)
[2019-06-02 15:17] LABS: Anisocytosis Slight; Basophils # (A) 0.1 k/uL (0-0.2); Basophils % (A) 1 %; Eosinophils # (A) 0.2 k/uL (0-0.7); Eosinophils % (A) 3 %; HCT 49.6 % (39.0-53.0); HGB 15.9 gm/dL (13.0-17.5); Lymphocytes # (A) 1.7 k/uL (1.0-4.8); Lymphocytes % (A) 22 %; MCHC 32.1 g/dL (31.0-37.0); MCV 87.4 fL (80.0-100.0); Mean Platelet Volume 6.3; Monocytes # (A) 0.4 k/uL (0-1.0); Monocytes % (A) 6 %; Neutrophils # (A) 5.2 k/uL (1.3-7.7); Neutrophils % (A) 68 %; Platelet Count 248 k/uL (150-450); RBC 5.68 m/uL (4.30-5.90); RDW 16.3 % (11.5-15.5); WBC 7.7 k/uL (3.8-10.6)
[2019-06-02 15:29] LABS: INR 0.9 (<1.2); Partial Thromboplastin Time 24.8 sec (22.0-30.0); Prothrombin Time 9.9 sec (9.0-12.0)
[2019-06-02 15:44] LABS: ALT 13 U/L (21-72); AST 18 U/L (17-59); African American GFR (CKD) >90 (>60 ml/min/1.73 sqM); Albumin 4.4 g/dL (3.5-5.0); Alkaline Phosphatase 87 U/L (38-126); Anion Gap 12 mmol/L; Blood Urea Nitrogen 14 mg/dL (9-20); Calcium 9.8 mg/dL (8.4-10.2); Carbon Dioxide 22 mmol/L (22-30); Chloride 106 mmol/L (98-107); Glucose 127 mg/dL (74-99); Potassium 3.7 mmol/L (3.5-5.1); Sodium 140 mmol/L (137-145); Total Bilirubin 0.4 mg/dL (0.2-1.3); Total Protein 7.1 g/dL (6.3-8.2)
[2019-06-02] MEDS ORDERED: SODIUM CHLORIDE 0.9% 1,000 ML IV ONE (16:17)
--- NOTE | 2019-06-02 16:21 | CT ---
EXAMINATION TYPE: CT chest w con DATE OF EXAM: 06/02/2019 COMPARISON: PET CT 04/09/2019 HISTORY: 54-year-old male Right sided swelling and redness at port site TECHNIQUE: Contiguous axial scanning of the chest after the administration of 100 mL of Isovue 300. Coronal/sagittal reconstructions performed. CT DLP: 710.5mGycm. Automatic exposure control utilized for a dose reduction. FINDINGS: There is a wound along the right upper chest with the surrounding conflict and stranding and skin thi ckening suggesting cellulitis. Changes extend to contact the underlying pectoralis major. There may b e a contiguous myositis. No discrete abnormal fluid collection is identified. Heart normal size without pericardial effusion. Aorta normal caliber with conventional arch vessel branching anatomy. Right paratracheal lymph node measures 1.3 cm versus 2.6 cm, previously. Subcarinal lymph node measur es 1.8 cm versus 2.3 cm, previously. Continued improvement in the mediastinal lymphadenopathy seen pr eviously. Moderate bilateral gynecomastia. No consolidation or pleural effusion. Visualized upper abdomen shows right-sided hydronephrosis, partially visualized. A couple layering ga llstones measure 8 mm. Bones: Mild degenerative disc disease midthoracic spine. IMPRESSION: 1. Removal of the right-sided chest port with wound present. Inflammatory fat stranding and confluent edema at the port site suggests cellulitis. Inflammatory changes extend down to the underlying pecto ralis major. There may be a contiguous myositis. However, no discrete abscess is identified. 2. Continuing improvement in the mediastinal lymphadenopathy ((for example, subcarinal measuring 1.8 cm now versus 2.3 cm on the 04/09/2019 PET scan). 3. Partially visualized persistent right-sided hydronephrosis. Cholelithiasis.
[2019-06-02] MEDS: NICOTINE 21MG/24HR PATCH TRANSDERM SCH (20:12)
[2019-06-02] MEDS ORDERED: diphenhydrAMINE 25 MG CAP PO PRN (21:11)
[2019-06-02] MEDS: MELATONIN 3 MG TABLET PO SCH (21:19)
[2019-06-02] MEDS: PANTOPRAZOLE 40 MG/10 ML VIAL IVP SCH (21:19)
[2019-06-02 21:31] LABS: Appearance,Urine Clear (Clear); Bilirubin,Urine Negative (Negative); Blood,Urine Negative (Negative); Color,Urine Yellow; Glucose,Urine (UA) Negative (Negative); Ketones,Urine Negative (Negative); Leukocyte Esterase,Urine Negative (Negative); Nitrite,Urine Negative (Negative); Protein,Urine Trace (Negative); Urobilinogen,Urine <2.0 mg/dL (<2.0)
[2019-06-02 21:43] LABS: Specific Gravity,Urine >1.050 (1.001-1.035)
[2019-06-02] MEDS: PIPERACILLIN-TAZOBACTAM 3.375 GM in SODIUM CHLORIDE 0.9% 100 ML IVPB SCH (23:49)
--- NOTE | 2019-06-03 07:35 | HP ---
HISTORY AND PHYSICAL CHIEF COMPLAINT: A 54-year-old male with chemotherapy with port removed out of the right chest a week ago and increasing redness and opening of the wound, wide open with significant redness and swelling in the anterior right chest area where he had extravasation of chemo about 6 months ago. Due to worsening drainage or redness, he was sent here. No chest pain shortness of breath. ALLERGIES: LATEX. HOME MEDICINES: Albuterol. 14-POINT REVIEW OF SYSTEMS: Negative except for as mentioned in HPI. PAST MEDICAL HISTORY: Asthma, cancer, GERD, non-Hodgkin's lymphoma, two rounds of chemo. SURGERY: Colonoscopy, , Port-A-Cath, bipolar depression. Daily marijuana smoker. 14 POINT REVIEW OF SYSTEMS: Negative except for as mentioned in HPI. CARDIOVASCULAR: S1, S2. LUNGS: Scattered rales or rhonchi at the base. HEMATOLOGY: 2+ edema. ABDOMEN: Soft, nontender. Distended, obesity. INTEGUMENT: Right chest, upper outer 2 x 1 inch diameter significant redness about 5 inches periopening on the right chest wall with fluctuance and redness in the surrounding area. NEUROLOGIC: Alert and orient x3. PSYCH: Fair mood and affect. Vital signs are reviewed. Labs are reviewed. Temp 98.6, pulse 101, respiratory rate 20 to 22, blood pressure 160s.80s, O2 is 98. ASSESSMENT: 1. Cellulitis of the chest. Open wound to the right chest. 2. Non-Hodgkin's lymphoma. Continue current treatments, IV antibiotics. Vascular and Infectious Disease consult. MMODL / IJN: [id number] /
[2019-06-03] MEDS: PIPERACILLIN-TAZOBACTAM 3.375 GM in SODIUM CHLORIDE 0.9% 100 ML IVPB SCH ×3 (07:42→23:25)
[2019-06-03] MEDS: PANTOPRAZOLE 40 MG/10 ML VIAL IVP SCH (07:42)
[2019-06-03] MEDS: NICOTINE 21MG/24HR PATCH TRANSDERM SCH (07:43)
[2019-06-03] MEDS: HYDROmorphone 1 MG/ML 1 ML SYRINGE IVP PRN ×2 (10:12→17:54)
--- NOTE | 2019-06-03 19:27 | P.CONS ---
History of Present Illness - Reason for Consult Consult date: 06/03/19 T cell Lymphoma Requesting physician: Coy Carlin - Chief Complaint Right chest wall Cellulitis Review of Systems A 14 point review of systems was assessed and completed and are all negative except for HPI Past Medical History Past Medical History: Asthma, Cancer, GERD/Reflux Additional Past Medical History / Comment(s): Non hodgkins lymphoma. States current anti bx use for port a cath infection. Has had 2 rounds of chemo, last one february or march 2019 History of Any Multi-Drug Resistant Organisms: None Reported Past Surgical History: No Surgical Hx Reported Additional Past Surgical History / Comment(s): Colonoscopy, lymph node biopsy. right chest port a cath Past Anesthesia/Blood Transfusion Reactions: No Reported Reaction Additional Past Anesthesia/Blood Transfusion Reaction / Comm: Pt has received blood in past without reaction. Past Psychological History: Bipolar, Depression Additional Psychological History / Comment(s): Manic. Smoking Status: Current every day smoker Past Alcohol Use History: Daily Additional Past Alcohol Use History / Comment(s): previous quit smoking December 2018. Smoked 30+ yrs, 1 PPD cutting down now smokes 1-5 cigarettes daily Past Drug Use History: Marijuana Additional Drug Use History / Comment(s): instructed to hold 24 hrs prior to procedure - Past Family History Father Family Medical History: No Reported History Additional Family Medical History / Comment(s): Father is healthy and is 82 yrs old. Mother Family Medical History: No Reported History Additional Family Medical History / Comment(s): Mother from dementia. Medications and Allergies Home Medications Medication Instructions Recorded Confirmed Type Albuterol Sulfate [Albuterol 2 puff INHALATION RT-Q4H PRN 05/20/19 06/02/19 History Sulfate Hfa] Allergies Allergy/AdvReac Type Severity Reaction Status Date / Time latex Allergy Rash/Hives Verified 06/02/19 15:18 ragweed pollen Allergy Unknown Verified 06/02/19 15:18 Physical Exam Vitals: Vital Signs Temp Pulse Pulse Resp BP BP Pulse Ox 06/03/19 13:05 98.0 F 94 16 144/94 97 06/03/19 04:25 98.2 F 77 20 136/85 96 06/02/19 20:00 97.4 F L 80 22 139/90 98 06/02/19 19:16 96.9 F L 78 16 127/58 98 06/02/19 18:00 75 18 128/88 95 06/02/19 17:00 79 16 116/74 95 Intake and Output 06/03/19 06/03/19 06/03/19 06:59 14:59 22:59 Intake Total 100 850 Balance 100 850 Intake: Oral 100 850 Other: Voiding Method Toilet Toilet # Voids 1 3 General: Alert and Oriented x3, No Acute Distress Head: Normocytic, Atraumatic Neck: Supple Mouth: No Lesions, No Thrush Eyes: Non-sclerotic No Palpable cervical, supraclavicular, axillary adenopathy Heart: Regular Rate, Regular Rhythm Lungs: Clear to Ausculations, No Wheeze, No Rhonchi, Diminishe bilateral lower lobes, No increased respiratory effort noted Abdomen: Soft, Non-Distended, Non-Tended, BSx4 Extremities: No Edema, Equal Strength Neurological: No Focal Defects: No sensory or motor deficits noted Psych: Calm and cooperative LCW bandage cdi Results CBC & Chem 7: 06/02/19 14:55 06/02/19 14:55 Labs: Abnormal Lab Results - Last 24 Hours (Table) 06/02/19 Range/Units 21:18 Ur Specific [place] >1.050 H (1.001-1.035) Urine Protein Trace H (Negative) Assessment and Plan Plan: T= Cell Lymphoma - initial tx with high-dose infusional chemotherapy with the EPOCH regimen due to rapid progression of symptoms and clinical decline. - Plan for next line 2. Pancytopeniadue to underlying non-Hodgkin's lymphoma. Hemoglobin was 6.8 today. 1 unit of irradiated packed rbc's will be ordered - With counts decreasing more as he approaches dev prophylaxic anti-viral, antifungal and antibiotics are resonable 3. Abnormal LFTs - improving 4. Extravasation of Vesicant Right Chest Wall [facility] - 02/07/19 - Extravasation at site, square dance caller physician notified - IV abx - unfortunetely still with wound care and recurreny infection - ID and wound care following 5. Deferred to the admitting service for management of the patient's other medical problems Plan is to start more chemo with Barrett Karmanos rec, although will need to await resolution improvement of infection IVAN Samaniego
[2019-06-03] MEDS: MELATONIN 3 MG TABLET PO SCH (19:58)
[2019-06-03] MEDS ORDERED: VANCOMYCIN IV PER PHARMACY 1 EACH MISC MISCELLANE PRN (22:10)
[2019-06-03] MEDS ORDERED: VANCOMYCIN 1,750 MG in SODIUM CHLORIDE 0.9% 500 ML 500 ML IVPB SCH (22:15)
--- NOTE | 2019-06-04 01:03 | P.CONS ---
History of Present Illness - Reason for Consult Consult date: 06/03/19 - Chief Complaint ound - History of Present Illness 54-year-old male that has a very complex medical history which began in December of this year. At that point in time the patient was feeling poorly was having fevers chills in a 30 pound weight loss. He was feeling very poorly overall was hospitalized at a local facility and then transferred to [facility]. 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 The patient has been initiated to chemotherapy. There was great d ifficulties because of significant psychosocial problems, eventually the family was able to come together and provide him with residents and transportation for his interventional chemotherapy. It is related the patient was cared for outside facility. Chemotherapy was given through the [facility] and unfortunately there was extravasation of the chemotherapy into the chest wall tissue around the buried port. He's been having ongoing difficulties of the site. However from the last evaluation till now has had some ongoing improvement to the tissue. There was quite a large area of necrosis superficially the now just has a small area of eschar. Prior other sites of eschar in the chest wall have resolved. His last hospitalization there was evidence of some fluctuance and secondary infection of the area. This is treated with antibiotic therapy and local wound care. As the tissue improved, the plan was for removal of the Lsyodb-d-Vfwy since it would never be utilized because of the damage to the tissue. This occurred on 05/26/2019. He is now developed evidence of the extensive drainage foul odor and surrounding erythema that has worsened and is more tender and constipation sought medical care. Review of Systems does complain of fever and feeling poorly HEENT:Denies headache or acute visual change. Denies sinus or mouth discomforts. Denies neck stiffness or pain. Denies significant oral cavity pain. Denies difficulty on swallowing. Lungs: Denies significant shortness of breath, cough, sputum production, or hemoptysis. Cardiovascular: Denies significant shortness of breath, chest pain, chest wall pain, orthopnea, dyspnea on exertion, syncope Gastrointestinal:Denies nausea, vomiting, diarrhea, constipation, hematemesis, melena, hematochezia. No no significant change of bowel habit noticed. Musculoskeletal: denies significant myalgias or arthralgias. No new joint swelling. Denies new back pain. Skin: worsening to the wound area to the right anterior chest wall with purulence and drainage Neuro: Denies headache or visual change. Denies any new onset weakness or difficulty with ambulation. Denies falls or seizures. Psychiatric:Denies anxiety or depression. Endocrine: Denies significant fatigue, denies significant weight loss or weight gain. Past Medical History Past Medical History: Asthma, Cancer, GERD/Reflux Additional Past Medical History / Comment(s): Non hodgkins lymphoma. States current anti bx use for port a cath infection. Has had 2 rounds of chemo, last one february or march 2019 History of Any Multi-Drug Resistant Organisms: None Reported Past Surgical History: No Surgical Hx Reported Additional Past Surgical History / Comment(s): Colonoscopy, lymph node biopsy. right chest port a cath Past Anesthesia/Blood Transfusion Reactions: No Reported Reaction Additional Past Anesthesia/Blood Transfusion Reaction / Comm: Pt has received blood in past without reaction. Past Psychological History: Bipolar, Depression Additional Psychological History / Comment(s): Manic. single. lives with family. No animals. No travel. No experience. Does not work outside of the home Smoking Status: Current every day smoker Past Alcohol Use History: Daily Additional Past Alcohol Use History / Comment(s): previous quit smoking December 2018. Smoked 30+ yrs, 1 PPD cutting down now smokes 1-5 cigarettes daily Past Drug Use History: Marijuana Additional Drug Use History / Comment(s): instructed to hold 24 hrs prior to procedure - Past Family History Father Family Medical History: No Reported History Additional Family Medical History / Comment(s): Father is healthy and is 82 yrs old. Mother Family Medical History: No Reported History Additional Family Medical History / Comment(s): Mother from dementia. Medications and Allergies Home Medications and Allergies Comment(s): Current Medications Diphenhydramine HCl (Benadryl) 25 mg PO BID PRN PRN Reason: Itching Last Admin: 06/02/19 21:19 Dose: 25 mg Documented by: Hydromorphone HCl (Dilaudid) 1 mg IVP Q4HR PRN PRN Reason: Pain Last Admin: 06/03/19 17:54 Dose: 1 mg Documented by: Piperacillin Sod/Tazobactam (Sod 3.375 gm/ Sodium Chloride) 100 mls @ 25 mls/hr IVPB Q8HR [facility] Last Admin: 06/03/19 23:25 Dose: 25 mls/hr Documented by: Vancomycin HCl 1,750 mg/ (Sodium Chloride) 500 mls @ 167 mls/hr IVPB Q12H [facility] Last Admin: 06/03/19 23:31 Dose: 167 mls/hr Documented by: Melatonin (Melatonin) 3 mg PO HS [facility] Last Admin: 06/03/19 19:58 Dose: 3 mg Documented by: Miscellaneous Information (Rx Info: Iv Contrast Was Given) 1 each MISCELLANE DAILY PRN PRN Reason: Per Protocol Stop: 06/04/19 14:23 Nicotine (Habitrol 21mg/24hr Patch) 1 patch TRANSDERM DAILY [facility] Last Admin: 06/03/19 07:43 Dose: 1 patch Documented by: Pantoprazole Sodium (Protonix) 40 mg PO AC-BRKFST [facility] Home Medications Medication Instructions Recorded Confirmed Type Albuterol Sulfate [Albuterol 2 puff INHALATION RT-Q4H PRN 05/20/19 06/02/19 History Sulfate Hfa] Allergies Allergy/AdvReac Type Severity Reaction Status Date / Time latex Allergy Rash/Hives Verified 06/02/19 15:18 ragweed pollen Allergy Unknown Verified 06/02/19 15:18 Physical Exam Vitals: Vital Signs Temp Pulse Resp BP Pulse Ox 06/03/19 13:05 98.0 F 94 16 144/94 97 06/03/19 04:25 98.2 F 77 20 136/85 96 Intake and Output 06/03/19 06/03/19 06/04/19 14:59 22:59 06:59 Intake Total 850 375 Output Total 400 Balance 850 375 -400 Intake: Intake, IV Titration 375 Amount Sodium Chloride 0.9% 1, 375 000 ml @ 75 mls/hr IV . [id number] Rx#:[id number] Oral 850 Output: Urine 400 Other: Voiding Method Toilet Toilet # Voids 3 1 HEENT: Anicteric, conjunctiva are pink and moist, nasal or oral mucosa are without lesion. The neck is supple without lymphadenopathy or thyromegaly. No oral thrush is noted. Lungs: good bilateral air entry, there are no significant crackles or wheezes, no bronchial sounds or egophony. Heart: Regular rate and rhythm with an audible S1-S2, no S3 or S4 noted. No significant murmur click or rub noted. Abdomen: Positive bowel sounds, soft and nontender, there is no palpable masses or organomegaly. Abdomen is without guarding or rebound. Extremities:Upper extremities reveal evidence of equal pulses, no lesions are seen, no petechiae or telangiectasia. The lower extremities Capillary refill was brisk.Reveal evidence of some bilateral lower extremity edema there is evidence of erythema that is present from the dorsum of the foot to just below the knee. It is not tender and appears to be somewhat petechial in nature Skin: Left chest shows no acute abnormalities. The upper and lower extremities without significant lesions. The right anterior chest wall shows evidence of the area of the removal of the Ukqlmu-s-Zefx. The chest tissue continues to be somewhat abnormal in appearance after the chemotherapy extravasation. There is some thickening of the tissue some chronic skin discoloration with erythema and is dry. However the surgical site has evidence of necrosis and there was apparently some followed her at the time of admission which is improved with cleansing. The tissue cultures obtained. Neuro:Awake and alert, oriented to person place and time. No gross focal sensory motor deficits noted. Musculoskeletal: Patient is ambulatory No acute joint effusions are noted. Lymph: No cervical, supraclavicular, axillary, epitrochlear, or inguinal lymphadenopathy was noted. Results CBC & Chem 7: 06/02/19 14:55 06/02/19 14:55 Labs: Microbiology - Last 24 Hours (Table) 06/02/19 21:18 Urine Culture - Final Urine,Clean Catch 06/02/19 14:55 Blood Culture - Preliminary Blood No Growth after 24 hours Laboratory Results WBC 7.7 k/uL (3.8-10.6) 06/02/19 14:55 RBC 5.68 m/uL (4.30-5.90) 06/02/19 14:55 Hgb 15.9 gm/dL (13.0-17.5) 06/02/19 14:55 Hct 49.6 % (39.0-53.0) 06/02/19 14:55 MCV 87.4 fL (80.0-100.0) 06/02/19 14:55 MCH 28.0 pg (25.0-35.0) 06/02/19 14:55 MCHC 32.1 g/dL (31.0-37.0) 06/02/19 14:55 RDW 16.3 % (11.5-15.5) H 06/02/19 14:55 Plt Count 248 k/uL (150-450) 06/02/19 14:55 Neutrophils % 68 % 06/02/19 14:55 Lymphocytes % 22 % 06/02/19 14:55 Monocytes % 6 % 06/02/19 14:55 Eosinophils % 3 % 06/02/19 14:55 Basophils % 1 % 06/02/19 14:55 Neutrophils # 5.2 k/uL (1.3-7.7) 06/02/19 14:55 Lymphocytes # 1.7 k/uL (1.0-4.8) 06/02/19 14:55 Monocytes # 0.4 k/uL (0-1.0) 06/02/19 14:55 Eosinophils # 0.2 k/uL (0-0.7) 06/02/19 14:55 Basophils # 0.1 k/uL (0-0.2) 06/02/19 14:55 Anisocytosis Slight 06/02/19 14:55 PT 9.9 sec (9.0-12.0) 06/02/19 14:55 INR 0.9 (<1.2) 06/02/19 14:55 APTT 24.8 sec (22.0-30.0) 06/02/19 14:55 Sodium 140 mmol/L (137-145) 06/02/19 14:55 Potassium 3.7 mmol/L (3.5-5.1) 06/02/19 14:55 Chloride 106 mmol/L (98-107) 06/02/19 14:55 Carbon Dioxide 22 mmol/L (22-30) 06/02/19 14:55 Anion Gap 12 mmol/L 06/02/19 14:55 BUN 14 mg/dL (9-20) 06/02/19 14:55 Creatinine 0.96 mg/dL (0.66-1.25) 06/02/19 14:55 Est GFR (CKD-EPI)AfAm >90 (>60 ml/min/1.73 sqM) 06/02/19 14:55 Est GFR (CKD-EPI)NonAf 89 (>60 ml/min/1.73 sqM) 06/02/19 14:55 Glucose 127 mg/dL (74-99) H 06/02/19 14:55 Plasma Lactic Acid Marcos 1.6 mmol/L (0.7-2.0) 06/02/19 14:55 Calcium 9.8 mg/dL (8.4-10.2) 06/02/19 14:55 Total Bilirubin 0.4 mg/dL (0.2-1.3) 06/02/19 14:55 AST 18 U/L (17-59) 06/02/19 14:55 ALT 13 U/L (21-72) L 06/02/19 14:55 Alkaline Phosphatase 87 U/L (38-126) 06/02/19 14:55 Total Protein 7.1 g/dL (6.3-8.2) 06/02/19 14:55 Albumin 4.4 g/dL (3.5-5.0) 06/02/19 14:55 Urine Color Yellow 06/02/19 21:18 Urine Appearance Clear (Clear) 06/02/19 21:18 Urine pH 6.0 (5.0-8.0) 06/02/19 21:18 Ur Specific [place] >1.050 (1.001-1.035) H 06/02/19 21:18 Urine Protein Trace (Negative) H 06/02/19 21:18 Urine Glucose (UA) Negative (Negative) 06/02/19 21:18 Urine Ketones Negative (Negative) 06/02/19 21:18 Urine Blood Negative (Negative) 06/02/19 21:18 Urine Nitrite Negative (Negative) 06/02/19 21:18 Urine Bilirubin Negative (Negative) 06/02/19 21:18 Urine Urobilinogen <2.0 mg/dL (<2.0) 06/02/19 21:18 Ur Leukocyte Esterase Negative (Negative) 06/02/19 21:18 Microbiology 06/02/19 21:18 Urine,Clean Catch Urine Culture - Final 06/02/19 14:55 Blood Blood Culture - Preliminary No Growth after 24 hours Assessment and Plan (1) Extravasation of vesicant antineoplastic chemotherapy, subsequent encounter Current Visit: No Status: Acute Code(s): T80.810D - EXTRAVASATION OF VESICANT ANTINEOPLASTIC CHEMOTHERAPY, SUBS SNOMED Code(s): 649184886 (2) Lymphoma Current Visit: No Status: Acute Code(s): C85.90 - NON-HODGKIN LYMPHOMA, UNSPECIFIED, UNSPECIFIED SITE SNOMED Code(s): 250659447 (3) Open wound of right chest wall with complication Narrative/Plan: 54-year-old male who has a history of obesity, lymphoma in the difficulty with extravasation of chemotherapy into his anterior chest wall at the site of his Drbhnr-p-Vzyn at the outside hospital. There is been difficulty with significant tissue necrosis erythema and skin changes in the region. The site was finally improving and constantly was taken to the operating room and the nonfunctional Ewniks-v-Yzmp was removed. Now 8 days later there is no significant secondary infection that is occurring and the patient has been admitted. Wound cultures obtained. Antibiotic therapy has been started with Zosyn with concerns to pseudomonas and other gram-negative pathogens. Vancomycin is added because of the concerns to MRSA given his extensive medical exposure. Wound care is with the Optisol product which can be changed daily. The patient will be seen by surgery he may require a more formal surgical debridement of the site.culture will further help direct antibiotic therapy at discharge, he does have a dual-lumen PICC In the left arm if needed Current Visit: Yes Status: Acute Code(s): S21.101A - UNSP OPN WND R FRNT WL OF THORAX W/O PENET THOR CAVITY, INIT SNOMED Code(s): 45426226
[2019-06-04] MEDS: PANTOPRAZOLE 40 MG TABLET PO SCH (08:31)
[2019-06-04] MEDS: PIPERACILLIN-TAZOBACTAM 3.375 GM in SODIUM CHLORIDE 0.9% 100 ML IVPB SCH ×2 (08:32→18:21)
[2019-06-04] MEDS: NICOTINE 21MG/24HR PATCH TRANSDERM SCH (08:32)
[2019-06-04] MEDS: HYDROmorphone 1 MG/ML 1 ML SYRINGE IVP PRN ×2 (08:44→20:27)
--- NOTE | 2019-06-04 09:00 | P.GSCN ---
History of Present Illness Consult date: 06/04/19 History of present illness: HPI: The patient is a 54 year old male who had recent right chest wall mediport removal following port site infection on 05/26/19. He is POD 9. He has lymphoma. Since removal he has had fevers, including worsening redness and progression of his wound. This morning her also reports new nausea from his infection. He has been seen by infectious disease and his symptoms have not improved despite being on Vancomycin and Zosyn. Per request of infectious disease team, debridement of the wound in being requested. SKIN: 3.5 cm open wound with moderate cellulitis, deep soft tissue necrosis with purulent drainage. Border of cellulitis over 4 to 5 cm. ASSESSMENT: 1. Chest wall cellulitis with ulcerative necrosis and abscess 2. Lymphoma PLAN: 1. Recommend debridement of chest wall wound. 2. Continue with antibiotics. 3. NPO at this time. Past Medical History Past Medical History: Asthma, Cancer, GERD/Reflux Additional Past Medical History / Comment(s): Non hodgkins lymphoma. States current anti bx use for port a cath infection. Has had 2 rounds of chemo, last one february or march 2019 History of Any Multi-Drug Resistant Organisms: None Reported Past Surgical History: No Surgical Hx Reported Additional Past Surgical History / Comment(s): Colonoscopy, lymph node biopsy. right chest port a cath Past Anesthesia/Blood Transfusion Reactions: No Reported Reaction Additional Past Anesthesia/Blood Transfusion Reaction / Comm: Pt has received blood in past without reaction. Past Psychological History: Bipolar, Depression Additional Psychological History / Comment(s): Manic. single. lives with fami ly. No animals. No travel. No experience. Does not work outside of the home Smoking Status: Current every day smoker Past Alcohol Use History: Daily Additional Past Alcohol Use History / Comment(s): previous quit smoking December 2018. Smoked 30+ yrs, 1 PPD cutting down now smokes 1-5 cigarettes daily Past Drug Use History: Marijuana Additional Drug Use History / Comment(s): instructed to hold 24 hrs prior to procedure - Past Family History Father Family Medical History: No Reported History Additional Family Medical History / Comment(s): Father is healthy and is 82 yrs old. Mother Family Medical History: No Reported History Additional Family Medical History / Comment(s): Mother from dementia. Medications and Allergies Home Medications Medication Instructions Recorded Confirmed Type Albuterol Sulfate [Albuterol 2 puff INHALATION RT-Q4H PRN 05/20/19 06/02/19 Hi story Sulfate Hfa] Allergies Allergy/AdvReac Type Severity Reaction Status Date / Time latex Allergy Rash/Hives Verified 06/02/19 15:18 ragweed pollen Allergy Unknown Verified 06/02/19 15:18 Surgical - Exam Vital Signs Temp Pulse Resp BP Pulse Ox 98.6 F 101 H 20 167/88 98 06/02/19 14:00 06/02/19 14:00 06/02/19 14:00 06/02/19 14:00 06/02/19 14:00 Results - Labs 06/02/19 14:55 06/02/19 14:55 Microbiology - Last 24 Hours (Table) 06/03/19 21:58 Gram Stain - Preliminary Chest Wound Culture - Preliminary 06/02/19 21:18 Urine Culture - Final Urine,Clean Catch 06/02/19 14:55 Blood Culture - Preliminary Blood No Growth after 24 hours
[2019-06-04] MEDS: VANCOMYCIN 1,750 MG in SODIUM CHLORIDE 0.9% 500 ML 500 ML IVPB SCH ×2 (12:10→14:45)
[2019-06-04] MEDS ORDERED: IV FLUID CONTINUATION 1,000 ML IV ONE (14:45)
[2019-06-04] MEDS ORDERED: ONDANSETRON 4 MG/2 ML VIAL IVP ONE (14:58)
[2019-06-04] MEDS ORDERED: PERMETHRIN 5% CREAM 60 GM TUBE TOPICAL ONE (15:00)
--- NOTE | 2019-06-04 15:23 | P.PN ---
Subjective Progress Note Date: 06/04/19 This 54-year-old gentleman admitted with right chest-previous site of Aswqru-z-Fiiv- open wound, cellulitis status post chemotherapy extravasation. Antibiotics and wound care as per infectious disease. Tissue cultures pending. Surgery consulted for potential debridement. Afebrile. Objective - Vital Signs Vital signs: Vital Signs Temp 98.0 F 06/03/19 13:05 Pulse 94 06/03/19 13:05 Resp 16 06/03/19 13:05 BP 144/94 06/03/19 13:05 Pulse Ox 97 06/03/19 13:05 Intake & Output 06/02/19 06/03/19 06/03/19 18:59 06:59 18:59 Intake Total 300 850 Balance 300 850 Weight 115.666 kg Intake: Oral 300 850 Other: Voiding Method Toilet # Voids 1 3 - Exam PHYSICAL EXAM: VITAL SIGNS: As above GENERAL: Sitting up in bed, no acute distress HEENT: Conjunctivae normal. eyes normal. Oral mucosa moist NECK: No JVD. No thyroid enlargement. No LNs CARDIOVASCULAR: S1, S2 regular.. No murmur RESPIRATION: Breath sounds diminished in the bases. Scattered rhonchi, no crackles. No bronchial breathing. ABDOMEN: Soft, nontender . No guarding. no masses palpable. Bowel sounds heard. LEGS: No edema. no swelling. No calf tenderness PSYCHIATRY: Alert and oriented X3, mood and affect normal. NERVOUS SYSTEM: Cranial N 2-12 grossly normal. Moves all 4 limbs. Diffuse weakness No focal deficits. Strength and sensation grossly intact.. Skin: Right anterior chest wall, prior site of Tfaiwb-l-Jmyz with necrotic tissue with significant erythema and fluctuance. - Labs CBC & Chem 7: 06/02/19 14:55 06/02/19 14:55 Labs: Abnormal Lab Results - Last 24 Hours (Table) 06/02/19 Range/Units 21:18 Ur Specific [place] >1.050 H (1.001-1.035) Urine Protein Trace H (Negative) Microbiology - Last 24 Hours (Table) 06/02/19 14:55 Blood Culture - Preliminary Blood No Growth after 24 hours Assessment and Plan Assessment: -Anterior right chest wall wound with cellulitis, possible abscess secondary to chemotherapy extravasation into the chest wall tissue around the site of previous port. -Hypertension -Obesity, BMI 34.6 -Pancytopenia -lymphoma, non-Hodgkin's -Abnormal LFTs, improving -Dyslipidemia -Right-sided hydronephrosis Plan: Continue current medication regime ,monitoring and symptomatic treatment. Wound care and IV antibiotics as per infectious disease. Surgery consult in place with recommendations pending. Prognosis guarded given multiple complex medical issues. Further recommendations to follow. The impression and plan of care has been dictated as directed. : I performed a history and examination of this patient, discussed the same with the dictator. I agree with the dictator's note ,documented as a scribe. Any additional findings or plans will be noted.
--- NOTE | 2019-06-04 15:25 | P.PN ---
Subjective Progress Note Date: 06/04/19 This 54-year-old gentleman admitted with right chest-previous site of Bmhjui-j-Aldi- open wound, cellulitis status post chemotherapy extravasation. Antibiotics and wound care as per infectious disease. Tissue cultures pending. Surgery consulted for potential debridement. Afebrile. Evaluated by surgery, scheduled for debridement today. Maintained on IV antibiotics as per ID. Cultures pending. Denies chest pain, palpitations or shortness of breath. Afebrile. Objective - Vital Signs Vital signs: Vital Signs Temp 98.0 F 06/04/19 14:39 Pulse 82 06/04/19 14:39 Resp 14 06/04/19 14:39 BP 145/91 06/04/19 14:39 Pulse Ox 99 06/04/19 14:39 Intake & Output 06/03/19 06/04/19 06/04/19 18:59 06:59 18:59 Intake Total 850 375 Output Total 1000 1750 Balance 850 -625 -1750 Intake: Intake, IV Titration 375 Amount Sodium Chloride 0.9% 1, 375 000 ml @ 75 mls/hr IV . [id number] ONE Rx#:[id number] Oral 850 Output: Urine 1000 1750 Other: Voiding Method Toilet Toilet # Voids 1 - Exam PHYSICAL EXAM: VITAL SIGNS: As above GENERAL: Sitting up in bed, no acute distress HEENT: Conjunctivae normal. eyes normal. Oral mucosa moist NECK: No JVD. No thyroid enlargement. No LNs CARDIOVASCULAR: S1, S2 regular.. No murmur RESPIRATION: Breath sounds diminished in the bases. Scattered rhonchi, no crac kles. No bronchial breathing. ABDOMEN: Soft, nontender . No guarding. no masses palpable. Bowel sounds heard. LEGS: No edema. no swelling. No calf tenderness PSYCHIATRY: Alert and oriented X3, mood and affect normal. NERVOUS SYSTEM: Cranial N 2-12 grossly normal. Moves all 4 limbs. Diffuse wea kness No focal deficits. Strength and sensation grossly intact.. Skin: Right anterior chest wall, prior site of Lvpqzk-y-Xwbr with necrotic tissue with significant erythema and fluctuance. Dressing clean dry and intact. - Labs CBC & Chem 7: 06/02/19 14:55 06/02/19 14:55 Labs: Microbiology - Last 24 Hours (Table) 06/03/19 21:58 Gram Stain - Preliminary Chest Wound Culture - Preliminary 06/02/19 21:18 Urine Culture - Final Urine,Clean Catch 06/02/19 14:55 Blood Culture - Preliminary Blood No Growth after 24 hours Assessment and Plan Assessment: -Anterior right chest wall wound with cellulitis, possible abscess secondary to chemotherapy extravasation into the chest wall tissue around the site of previous port. -Hypertension -Obesity, BMI 34.6 -Pancytopenia -lymphoma, non-Hodgkin's -Abnormal LFTs, improving -Dyslipidemia -Right-sided hydronephrosis Plan: Continue current medication regime ,monitoring and symptomatic treatment. Scheduled for debridement today with surgery. Maintain IV antibiotics as per infectious disease. The impression and plan of care has been dictated as directed. : I performed a history and examination of this patient, discussed the same with the dictator. I agree with the dictator's note ,documented as a scribe. Any additional findings or plans will be noted.
--- NOTE | 2019-06-04 15:26 | P.PN ---
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 [id number] ONE Rx#:[id number] Oral 850 Output: Urine 1000 1750 Other: Voiding Method Toilet Toilet # Voids 1 - Exam General: Alert and Oriented x3, No Acute Distress Head: Normocytic, Atraumatic Neck: Supple Mouth: No Lesions, No Thrush Eyes: Non-sclerotic No Palpable cervical, supraclavicular, axillary adenopathy Heart: Regular Rate, Regular Rhythm Lungs: Clear to Ausculations, No Wheeze, No Rhonchi, Diminishe bilateral lower lobes, No increased respiratory effort noted Abdomen: Soft, Non-Distended, Non-Tended, BSx4 Extremities: No Edema, Equal Strength Neurological: No Focal Defects: No sensory or motor deficits noted Psych: Calm and cooperative LCW bandage cdi - Labs CBC & Chem 7: 06/02/19 14:55 06/02/19 14:55 Labs: Microbiology - Last 24 Hours (Table) 06/03/19 21:58 Gram Stain - Preliminary Chest Wound Culture - Preliminary 06/02/19 21:18 Urine Culture - Final Urine,Clean Catch 06/02/19 14:55 Blood Culture - Preliminary Blood No Growth after 24 hours Assessment and Plan Plan: T= Cell Lymphoma - initial tx with high-dose infusional chemotherapy with the EPOCH regimen due to rapid progression of symptoms and clinical decline. - Plan for next line Pancytopeniadue to underlying non-Hodgkin's lymphoma. Hemoglobin was 6.8 today. 1 unit of irradiated packed rbc's will be ordered - With counts decreasing more as he approaches dev prophylaxic anti-viral, antifungal and antibiotics are resonable Abnormal LFTs - improving Extravasation of Vesicant Right Chest Wall [facility] - 02/07/19 - Extravasation at site, call out operator physician notified - IV abx - unfortunetely still with wound care and recurreny infection - ID and wound care following Deferred to the admitting service for management of the patient's other medical problems Plan is to start more chemo with [place] [facility]arermias [facility], although will need to await resolution improvement of infection Chemotherapy plan on hold until resolution of above Radha IVAN Ivan
--- NOTE | 2019-06-04 15:36 | P.PN ---
Progress Note - Text Progress Note Date: 06/04/19 As per surgical consult. Patient was seen in preop. Has large wound right chest wall with erythema and some necrotic skin and subcutaneous fat. We'll proceed with surgical debridement. Risks of bleeding, infection, pain, larger wound, poor wound healing, possible need for additional surgery reviewed. He understands and wishes to proceed.
[2019-06-04] MEDS ORDERED: HEPARIN SODIUM,PORCINE 5,000 UNIT/ML 1 ML VIAL SQ ONE (15:42)
[2019-06-04] MEDS ORDERED: PROPOFOL 10 MG/ML 20 ML VIAL IV ONE (16:00)
[2019-06-04] MEDS ORDERED: SUCCINYLCHOLINE CHLORIDE 100 MG/5 ML SYR IV ONE (16:00)
[2019-06-04] MEDS ORDERED: LIDOCAINE 1% INJ 10MG/ML (20 ML MDV) ONE (16:00)
[2019-06-04] MEDS ORDERED: MIDAZOLAM 2 MG/2 ML VIAL ONE (16:00)
[2019-06-04] MEDS ORDERED: fentaNYL (PF) 50 MCG/ML 2 ML AMP ONE (16:00)
[2019-06-04] MEDS ORDERED: KETAMINE 10 MG/ML 20 ML VIAL ONE (16:00)
--- NOTE | 2019-06-04 16:49 | P.OP ---
Date of Procedure: 06/04/19 Procedure(s) Performed: PREOPERATIVE DIAGNOSIS: Right upper chest wound POSTOPERATIVE DIAGNOSIS: Same PROCEDURE: Wide debridement right upper chest wound SURGEON: Jose Enrique EBL: 10 mL ANESTHESIA: Gen. COMPLICATIONS: None OPERATIVE PROCEDURE: Patient place never table in the supine position. The patient was placed under general anesthesia. The right upper chest wound was prepped and draped sterilely. The patient had an open wound measuring 4 x 3 cm with a depth of 2.5 cm. Panel elliptical incision was made around this open wound taking the dissection plane back to what felt like palpable and appeared to be viable skin and subcutaneous fat. This debridement took place using both the scalpel and electrocautery. This was an excisional biopsy. This was done sharply. The size of the debrided tissue was 7.5 x 6.5 x 3.5 cm. This included skin subcutaneous fat and superficial muscle. We had what appeared represent viable tissue circumferentially at this point. Bleeding was controlled using large cautery. Wound was packed with lightly moistened Kerlix roll. Sterile outer dressings applied. DISPOSITION: Stable to recovery room
[2019-06-04] MEDS: HYDROmorphone 1 MG/ML 1 ML SYRINGE IVP ONE ×2 (17:14→17:35)
[2019-06-04] MEDS: MELATONIN 3 MG TABLET PO SCH (20:27)
[2019-06-05] MEDS: PIPERACILLIN-TAZOBACTAM 3.375 GM in SODIUM CHLORIDE 0.9% 100 ML IVPB SCH ×3 (00:19→16:08)
[2019-06-05] MEDS: PANTOPRAZOLE 40 MG TABLET PO SCH (06:57)
[2019-06-05] MEDS: NICOTINE 21MG/24HR PATCH TRANSDERM SCH ×2 (06:58→06:59)
[2019-06-05] MEDS: HYDROcodone/APAP 5-325MG 1 EACH TAB PO PRN ×2 (07:52→14:34)
[2019-06-05 07:59] LABS: Calcium 9.4 mg/dL (8.4-10.2); Potassium 4.3 mmol/L (3.5-5.1)
[2019-06-05 08:00] LABS: Anisocytosis Slight; Basophils % (A) 1 %; Eosinophils # (A) 0.3 k/uL (0-0.7); Eosinophils % (A) 4 %; HCT 45.8 % (39.0-53.0); HGB 14.9 gm/dL (13.0-17.5); Lymphocytes # (A) 0.9 k/uL (1.0-4.8); Lymphocytes % (A) 15 %; MCH 28.3 pg (25.0-35.0); MCHC 32.5 g/dL (31.0-37.0); Mean Platelet Volume 6.5; Monocytes # (A) 0.3 k/uL (0-1.0); Monocytes % (A) 5 %; Neutrophils # (A) 4.6 k/uL (1.3-7.7); Neutrophils % (A) 74 %; Platelet Count 202 k/uL (150-450); RBC 5.27 m/uL (4.30-5.90); RDW 16.5 % (11.5-15.5); WBC 6.3 k/uL (3.8-10.6)
--- NOTE | 2019-06-05 08:56 | P.PN ---
Subjective Progress Note Date: 06/05/19 Principal diagnosis: Right chest wound Patient doing better today. No change in discomfort post debridement. He is afebrile. White blood cell count normal. Objective - Vital Signs Vital signs: Vital Signs Temp 97.8 F 06/05/19 04:35 Pulse 75 06/05/19 04:35 Resp 22 06/05/19 04:35 BP 143/91 06/05/19 04:35 Pulse Ox 96 06/05/19 04:35 Intake & Output 06/04/19 06/05/19 06/05/19 18:59 06:59 18:59 Intake Total 915 Output Total 1765 1250 Balance -850 -1250 Intake: IV 915 Output: Urine 1750 1250 Estimated Blood Loss 15 Other: Voiding Method Toilet Toilet - Exam Right chest wall wound 6 x 7 cm clean with small amount of sanguinous drainage overnight, no purulence, mild tenderness - Labs CBC & Chem 7: 06/05/19 07:32 06/05/19 07:32 Labs: Abnormal Lab Results - Last 24 Hours (Table) 06/05/19 06/05/19 Range/Units 07:32 07:32 RDW 16.5 H (11.5-15.5) % Lymphocytes # 0.9 L (1.0-4.8) k/uL Glucose 102 H (74-99) mg/dL Microbiology - Last 24 Hours (Table) 06/02/19 14:55 Blood Culture - Preliminary Blood No Growth after 48 hours 06/03/19 21:58 Gram Stain - Preliminary Chest Wound Culture - Preliminary Assessment and Plan (1) Open wound of right chest wall with complication Narrative/Plan: Continue antibiotics per infectious disease. We'll contact Dr. Merchant to see if he is supportive of wound VAC placement. Discharge planning following that. Current Visit: Yes Status: Acute Code(s): S21.101A - UNSP OPN WND R FRNT WL OF THORAX W/O PENET THOR CAVITY, INIT SNOMED Code(s): 14906424
[2019-06-05] MEDS: VANCOMYCIN 1,750 MG in SODIUM CHLORIDE 0.9% 500 ML 500 ML IVPB SCH ×2 (11:37→23:27)
[2019-06-05] MEDS: HYDROmorphone 1 MG/ML 1 ML SYRINGE IVP PRN (16:05)
[2019-06-05] MEDS: CEFEPIME 2 GM in SODIUM CHLORIDE 0.9% 100 ML IVPB SCH (21:55)
[2019-06-05] MEDS: MELATONIN 3 MG TABLET PO SCH (21:55)
--- NOTE | 2019-06-06 04:15 | PN ---
PROGRESS NOTE DATE OF SERVICE: 06/05/2019 REASON FOR FOLLOWUP: To re-evaluate the wound and need for the wound VAC therapy. HISTORY OF PRESENT ILLNESS: The patient is a 54-year-old male with a past medical history significant for lymphoma. The patient undergoing chemotherapy through a right chest wall catheter. Apparently the patient ( ) of the chemo did a significant skin necrosis. The patient is status post removal of the catheter on 05/26/2019 and has been treated in the hospital with a nonhealing wound and secondary cellulitis. The patient has been taken to OR and is status post debridement of the wound. Cultures currently pending. The patient is on vancomycin and Zosyn. Surgery requested re-evaluation of the patient by Infectious Disease for consultation of possible wound VAC. The patient is currently afebrile. The patient did have some dull aching pain to the chest wall wound area, mild 3 to 4/10 and no radiation. Surrounding swelling has improved. No foul smelling drainage. Denies any chest pain. No abdominal pain. No diarrhea. REVIEW OF SYSTEMS: Positive points have been mentioned in HPI. Rest of systems negative. Past medical and surgical history reviewed, no change. Medication reviewed. PHYSICAL EXAMINATION: Blood pressure is 147/94 with a pulse of 75, temperature of 97.9, he is 99% on room air. General description is a middle-aged male lying in bed in no distress. No tachypnea or accessory muscle of respiration noted. HEENT: No pallor or scleral icterus. Oral mucosa is moist. NECK: Trachea central, no thyromegaly. LUNGS: Unlabored breathing, clear to auscultation anteriorly. No wheeze or crackle. HEART: S1, S2. Regular rate and rhythm. ABDOMEN: Soft, no tenderness. No guarding or rigidity. EXTREMITIES: No edema. Examination right chest wall did have a deep wound with no significant slough. Surrounding swelling has improved. No drainage. LABS: White count 6.3. Wound cultures currently pending. DIAGNOSTIC IMPRESSION AND PLAN: Patient with right chest wall wound where the Port-A-Cath has been discontinued secondary to cellulitis. Waiting for the culture to finalize. The wound VAC will be appropriate and order today with black foam continuous pressure of 0.25 mmHg to be changed Friday, Friday and . Antibiotic to continue in the form of vancomycin, however, discontinue Zosyn and add ( ) to cover for the gram-negative. The discharge antibiotic will depend upon the culture report. Continue supportive care. MMODL / IJN: [id number] /
[2019-06-06] MEDS: CEFEPIME 2 GM in SODIUM CHLORIDE 0.9% 100 ML IVPB SCH ×2 (07:32→21:17)
[2019-06-06] MEDS: PANTOPRAZOLE 40 MG TABLET PO SCH (07:32)
[2019-06-06] MEDS: NICOTINE 21MG/24HR PATCH TRANSDERM SCH ×2 (07:32→07:33)
[2019-06-06 07:44] LABS: African American GFR (CKD) >90 (>60 ml/min/1.73 sqM)
[2019-06-06] MEDS: HYDROmorphone 1 MG/ML 1 ML SYRINGE IVP PRN ×3 (09:19→19:37)
--- NOTE | 2019-06-06 10:33 | P.PN ---
Subjective Progress Note Date: 06/06/19 Principal diagnosis: Right chest wound Patient doing well today. Pain well-controlled. Wound VAC was placed yesterday. He is afebrile. Objective - Vital Signs Vital signs: Vital Signs Temp 97.4 F L 06/06/19 04:44 Pulse 71 06/06/19 04:44 Resp 16 06/06/19 04:44 BP 150/86 06/06/19 04:44 Pulse Ox 98 06/06/19 04:44 Intake & Output 06/05/19 06/06/19 06/06/19 18:59 06:59 18:59 Intake Total 400 600 Output Total 600 825 Balance -200 -225 Intake: Intake, IV Titration 600 Amount Cefepime 2 gm In Sodium 100 Chloride 0.9% 100 ml @ 200 mls/hr IVPB Q12HR [facility] Rx#:[id number] Vancomycin 1,750 mg In 500 Sodium Chloride 0.9% 500 ml 500 ml @ 167 mls/hr IVPB Q12H [facility] Rx#: [id number] Oral 400 Output: Urine 600 825 Other: Voiding Method Toilet # Voids 4 3 - Exam Right chest wall wound VAC in place, mild tenderness, slight erythema - Labs CBC & Chem 7: 06/05/19 07:32 06/06/19 07:04 Labs: Microbiology - Last 24 Hours (Table) 06/02/19 14:55 Blood Culture - Preliminary Blood No Growth after 72 hours Assessment and Plan (1) Open wound of right chest wall with complication Narrative/Plan: Continue wound VAC therapy for now. Possible discharge once home care arranged. Current Visit: Yes Status: Acute Code(s): S21.101A - UNSP OPN WND R FRNT WL OF THORAX W/O PENET THOR CAVITY, INIT SNOMED Code(s): 52244106
--- NOTE | 2019-06-06 11:41 | PN ---
PROGRESS NOTE DATE OF SERVICE: 06/05/2019 SUBJECTIVE: 54-year-old white male with cellulitis to his right chest. He had a surgical debridement yesterday. Remains on IV vancomycin until cultures are back. Wound VAC has been placed. CARDIOVASCULAR: S1, S2. LUNGS: Clear. GI: Soft. HEMATOLOGY: Negative Homans. ASSESSMENT: 1. Non-Hodgkin's lymphoma. 2. Cellulitis as well as open wound of the right chest, status post debridement. Wound VAC is being placed. Continue IV vancomycin. MMODL / IJN: [id number] /
[2019-06-06] MEDS: VANCOMYCIN 1,750 MG in SODIUM CHLORIDE 0.9% 500 ML 500 ML IVPB SCH (11:51)
--- NOTE | 2019-06-06 20:38 | PN ---
PROGRESS NOTE SUBJECTIVE: 54-year-old white male with a wound VAC on the right anterior chest wall, abscess versus cellulitis. He is on vancomycin, meropenem until cultures are back. Cardiovascular S1, S2. Lungs clear. GI soft. Hematology negative Homans. ASSESSMENT: Right chest wound, abscess versus cellulitis. Continue with wound VAC on the right chest area. Continue on IV antibiotics until cultures are back, then switch to oral and possible discharge home next 2 days when cultures are back. Continue wound VAC treatment. MMODL / IJN: [id number] /
[2019-06-06] MEDS: MELATONIN 3 MG TABLET PO SCH (21:16)
[2019-06-06] MEDS ORDERED: VANCOMYCIN TROUGH DUE 1 EACH MISC MISCELLANE ONE (23:00)
[2019-06-07] MEDS: HYDROmorphone 1 MG/ML 1 ML SYRINGE IVP PRN (00:12)
[2019-06-07] MEDS: VANCOMYCIN 1,750 MG in SODIUM CHLORIDE 0.9% 500 ML 500 ML IVPB SCH ×3 (00:12→23:16)
--- NOTE | 2019-06-07 00:50 | PN ---
PROGRESS NOTE DATE OF SERVICE: 06/06/2019 REASON FOR FOLLOWUP: Right upper chest wound. INTERVAL HISTORY: The patient is currently afebrile. Patient has been breathing comfortably. Denies having any chest pain or cough. No nausea, vomiting. No abdominal pain or any diarrhea. PHYSICAL EXAMINATION: Blood pressure 154/93 with a pulse of 74, temperature 96.8. He is 95% on room air. General description is a middle-aged male lying in bed in no distress. Respiratory system: Unlabored breathing, clear to auscultation anteriorly. Heart S1, S2. Regular rate and rhythm. Abdomen soft, no tenderness. Right chest wall is currently covered with a wound VAC. DIAGNOSTIC IMPRESSION AND PLAN: Patient with right upper chest wall wound after extensive debridement and removal of his Port-A-Cath. The patient cultures so far negative. Has been insisting on going home. Currently covered with cefepime and vancomycin. If no resistant organism, recommend a short course of oral antibiotics along with local wound care with wound VAC. Questions and concerns were answered. MMODL / IJN: [id number] /
[2019-06-07] MEDS: CEFEPIME 2 GM in SODIUM CHLORIDE 0.9% 100 ML IVPB SCH ×2 (07:46→20:46)
[2019-06-07] MEDS: PANTOPRAZOLE 40 MG TABLET PO SCH (07:47)
[2019-06-07] MEDS: NICOTINE 21MG/24HR PATCH TRANSDERM SCH (07:47)
[2019-06-07] MEDS: HYDROcodone/APAP 5-325MG 1 EACH TAB PO PRN ×3 (07:47→20:45)
--- NOTE | 2019-06-07 09:35 | P.PN ---
Subjective Progress Note Date: 06/07/19 Principal diagnosis: Right chest wound Patient doing well today. Only has mild pain at the wound VAC site. No fevers. Objective - Vital Signs Vital signs: Vital Signs Temp 98.1 F 06/07/19 05:45 Pulse 68 06/07/19 05:45 Resp 20 06/07/19 05:45 BP 171/75 06/07/19 05:45 Pulse Ox 98 06/07/19 05:45 Intake & Output 06/06/19 06/07/19 06/07/19 18:59 06:59 18:59 Intake Total 700 200 Output Total 401 550 Balance 700 -201 -550 Intake: IV 700 Cefepime 2 gm In Sodium 100 Chloride 0.9% 100 ml @ 200 mls/hr IVPB Q12HR [facility] Rx#:[id number] Piperacillin-Tazobactam 3 100 .375 gm In Sodium Chloride 0.9% 100 ml @ 25 mls/hr IVPB Q8HR DA Rx# :[id number] Vancomycin 1,750 mg In 500 Sodium Chloride 0.9% 500 ml 500 ml @ 167 mls/hr IVPB Q12H [facility] Rx#: [id number] Oral 200 Output: Urine 401 550 Other: Voiding Method Toilet # Voids 0 # Bowel Movements 0 - Exam Right chest wall wound VAC in place, mild tenderness, mild induration of the skin around the wound VAC - Labs CBC & Chem 7: 06/05/19 07:32 06/06/19 07:04 Labs: Microbiology - Last 24 Hours (Table) 06/02/19 14:55 Blood Culture - Preliminary Blood No Growth after 96 hours Assessment and Plan (1) Open wound of right chest wall with complication Narrative/Plan: Patient doing well at this time. Continue wound VAC therapy. Continue antibiotics. Discharge when outpatient wound VAC arrangements made. Current Visit: Yes Status: Acute Code(s): S21.101A - UNSP OPN WND R FRNT WL OF THORAX W/O PENET THOR CAVITY, INIT SNOMED Code(s): 29709919
[2019-06-07] MEDS: MELATONIN 3 MG TABLET PO SCH (20:46)
--- NOTE | 2019-06-07 21:32 | PN ---
PROGRESS NOTE DATE OF SERVICE: 06/07/2019 REASON FOR FOLLOWUP: Right chest wall wound. INTERVAL HISTORY: The patient is currently afebrile, has been breathing comfortably. Waiting for arrangement for the wound VAC on discharge. No chest pain. No nausea, no vomiting. No abdominal pain, no diarrhea. PHYSICAL EXAMINATION: Blood pressure 154/60 with a pulse of 88, temperature 98.6, he is 99% on room air. General description is a middle-aged male lying in bed in no distress. Respiratory system: Unlabored breathing, clear to auscultation anteriorly. Heart S1, S2. Regular rate and rhythm. Abdomen soft, no tenderness. LABS: Cultures have been negative so far. DIAGNOSTIC IMPRESSION AND PLAN: Patient with right chest wall wound, status post debridement. Local care to continue with the wound VAC. Waiting for wound VAC before discharge. Continue with vancomycin, cefepime. However, if the cultures remain negative may not need long-term IV antibiotic therapy. Question and concerns were answered. Dr. Merchant will resume the care as of tomorrow. MMISACL / IJN: [id number] /
--- NOTE | 2019-06-07 22:47 | PN ---
PROGRESS NOTE SUBJECTIVE: This is a 54-year-old white male who is improved from standpoint of a wound VAC on his right chest. He has improvement of his redness around the wound VAC. He is on cefepime and vancomycin. Cultures are back and he will be be discharged. PHYSICAL EXAM: CARDIOVASCULAR: S1, S2. LUNGS: Clear. ABDOMEN: Soft. HEMATOLOGY: Negative Homans. SKIN: Wound VAC in the right chest. ASSESSMENT: Cellulitis abscess of the right chest, wound VAC in the right chest. Continue with cefepime and vancomycin. Possible discharge in the next 24 to 48 hours pending cultures. MMODL / IJN: [id number] /
[2019-06-08] MEDS: NICOTINE 21MG/24HR PATCH TRANSDERM SCH (07:35)
[2019-06-08] MEDS: HYDROcodone/APAP 5-325MG 1 EACH TAB PO PRN ×2 (07:35→15:13)
[2019-06-08] MEDS: PANTOPRAZOLE 40 MG TABLET PO SCH (07:35)
[2019-06-08] MEDS: CEFEPIME 2 GM in SODIUM CHLORIDE 0.9% 100 ML IVPB SCH ×2 (07:36→21:33)
[2019-06-08 08:44] LABS: Basophils % (A) 1 %; Eosinophils # (A) 0.2 k/uL (0-0.7); Eosinophils % (A) 4 %; HCT 47.3 % (39.0-53.0); Hypochromasia Slight; Lymphocytes % (A) 17 %; MCH 27.5 pg (25.0-35.0); MCHC 31.8 g/dL (31.0-37.0); MCV 86.7 fL (80.0-100.0); Mean Platelet Volume 6.7; Monocytes # (A) 0.3 k/uL (0-1.0); Monocytes % (A) 5 %; Neutrophils # (A) 4.2 k/uL (1.3-7.7); Neutrophils % (A) 72 %; Platelet Count 198 k/uL (150-450); RBC 5.45 m/uL (4.30-5.90); RDW 15.9 % (11.5-15.5); WBC 5.8 k/uL (3.8-10.6)
[2019-06-08 08:56] LABS: Calcium 9.6 mg/dL (8.4-10.2); Potassium 4.7 mmol/L (3.5-5.1); Total Bilirubin 0.5 mg/dL (0.2-1.3); Total Protein 6.6 g/dL (6.3-8.2)
[2019-06-08] MEDS: VANCOMYCIN 1,750 MG in SODIUM CHLORIDE 0.9% 500 ML 500 ML IVPB SCH ×2 (11:51→23:22)
--- NOTE | 2019-06-08 11:56 | P.DS ---
Providers Date of admission: 06/02/19 16:17 Expected date of discharge: 06/08/19 Attending physician: Randy Leroy Consults: 06/02/19 16:17 Consult Physician Urgent Consulting Provider: Devin Dyer Consult Reason/Comments: Chest wound and cellulitis Do you want consulting provider notified?: Yes 06/02/19 16:21 Consult Physician Urgent Consulting Provider: Dennys Zafar Consult Reason/Comments: T-cell lymphoma Do you want consulting provider notified?: Yes 06/03/19 11:19 Consult Physician Urgent Consulting Provider: Pacheco Fraire Consult Reason/Comments: Inicion and Drainage of right chest from old infected port Do you want consulting provider notified?: Yes 06/04/19 09:00 Consult Physician Routine Consulting Provider: [facility] Consult Reason/Comments: [facility] Do you want consulting provider notified?: Yes Primary care physician: [facility] Course: Final Diagnoses: -Anterior right chest wall wound with cellulitis, possible abscess secondary to chemotherapy extravasation into the chest wall tissue around the site of previous port. Status post debridement. Wound VAC applied. -Hypertension -Obesity, BMI 34.6 -Pancytopenia -lymphoma, non-Hodgkin's -Dyslipidemia -Right-sided hydronephrosis Hospital course:This 54-year-old gentleman admitted with right chest-previous site of Zgmzep-w-Ltbb- open wound, cellulitis status post chemotherapy extravasation. Antibiotics and wound care as per infectious disease. Tissue cultures pending. Surgery consulted for potential debridement. Afebrile. Evaluated by surgery, scheduled for debridement today. Maintained on IV antibiotics as per ID. Cultures pending. Denies chest pain, palpitations or shortness of breath. Afebrile. Status post debridement. Wound VAC applied. Significant clinical improvement. Cleared by all consults for discharge. DC antibiotics as per ID. Pain management as per surgery.Patient is being discharged home in stable condition with guarded prognosis. EXAM: GENERAL: Alert & Oriented X 3, no acute distress CARDIOVASCULAR: S1, S2 regular.. No murmur RESPIRATION: Breath sounds diminished in the bases. ABDOMEN: Soft, nontender . No guarding. no masses palpable. Bowel sounds heard. NERVOUS SYSTEM: No focal deficits. Right chest wound VAC present. Microbiology 06/02/19 14:55 Blood Blood Culture - Preliminary No Growth after 120 hours 06/03/19 21:58 Chest Gram Stain - Preliminary 06/03/19 21:58 Chest Wound Culture - Preliminary 06/02/19 21:18 Urine,Clean Catch Urine Culture - Final The impression and plan of care has been dictated as directed. : I performed a history and examination of this patient, discussed the same with the dictator. I agree with the dictator's note ,documented as a scribe. Any additional findings or plans will be noted. Time taken: 35 minutes Patient Condition at Discharge: Stable Plan - Discharge Summary Discharge Rx Participant: No New Discharge Prescriptions: New Cefuroxime Axetil [Ceftin] 500 mg PO BID #20 tab diphenhydrAMINE [Benadryl] 25 mg PO BID PRN cap PRN Reason: Itching Nicotine 21Mg/24Hr Patch [Habitrol] 1 patch TRANSDERM DAILY #30 patch Pantoprazole [Protonix] 40 mg PO AC-BRKFST #30 tablet. Acetaminophen Tab [Tylenol Tab] 650 mg PO Q4H PRN #30 tablet PRN Reason: Pain Continue Albuterol Sulfate [Albuterol Sulfate Hfa] 2 puff INHALATION RT-Q4H PRN PRN Reason: Shortness Of Breath Discharge Medication List Albuterol Sulfate [Albuterol Sulfate Hfa] 2 puff INHALATION RT-Q4H PRN 05/20/19 [History] Acetaminophen Tab [Tylenol Tab] 650 mg PO Q4H PRN #30 tablet 06/08/19 [Rx] Cefuroxime Axetil [Ceftin] 500 mg PO BID #20 tab 06/08/19 [Rx] Nicotine 21Mg/24Hr Patch [Habitrol] 1 patch TRANSDERM DAILY #30 patch 06/08/19 [Rx] Pantoprazole [Protonix] 40 mg PO AC-BRKFST #30 tablet. 06/08/19 [Rx] diphenhydrAMINE [Benadryl] 25 mg PO BID PRN cap 06/08/19 [Rx] Follow up Appointment(s)/Referral(s): Rah Quispe MD [Medical Doctor] - 1 Week [facility] [NON-STAFF] - 1-2 Days Randy Merchant MD [STAFF PHYSICIAN] - 1 Week Randy Leroy MD [Primary Care Provider] - 1 Week Discharge Disposition: HOME WITH HOME HEALTH SERVICES
--- NOTE | 2019-06-08 12:52 | P.PN ---
<Pennie Jade - Last Filed: 06/08/19 12:52> Subjective Progress Note Date: 06/08/19 CHIEF COMPLAINT: Right upper chest wound HISTORY OF PRESENT ILLNESS: Patient is status post debridement of right upper chest wound completed on 06/04/[address] Quispe. Patient reports his pain is tolerable today. Tolerating diet. Denies nausea or vomiting. Wound vac to chest wall noted with surrounding erythema. Patient reports erythema is significantly improved. WBC 5.8. Hemoglobin 15.0. PHYSICAL EXAM: VITAL SIGNS: Reviewed. GENERAL: Well-developed in no acute distress. HEENT: No sclera icterus. Extraocular movements grossly intact. Moist buccal mucosa. Head is atraumatic, normocephalic. CHEST: Wound vac to right upper chest with surrounding erythema. Minimal tenderness. ABDOMEN: Soft. Nondistended. Nontender. NEUROLOGIC: Alert and oriented. Cranial nerves II through XII grossly intact. ASSESSMENT: 1. Right upper chest wall wound, s/p debridement PLAN: 1. Continue wound vac 2. Ceftin prescribed at discharge per infectious disease. Tylenol for pain upon discharge. 3. He is stable for discharge from a surgical standpoint. Patient may follow up with Dr. Quispe outpatient. Nurse practitioner note has been reviewed by physician. Signing provider agrees with the documented findings, assessment, and plan of care. Objective - Vital Signs Vital signs: Vital Signs Temp 98.1 F 06/08/19 05:00 Pulse 100 06/08/19 05:00 Resp 20 06/08/19 08:00 BP 154/92 06/08/19 05:00 Pulse Ox 97 06/08/19 05:00 Intake & Output 06/07/19 06/08/19 06/08/19 18:59 06:59 18:59 Intake Total 300 Output Total 1350 300 475 Balance -1350 0 -475 Intake: Oral 300 Output: Urine 1350 300 475 Other: Voiding Method Toilet Toilet Urinal # Voids 700 3 # Bowel Movements 0 1 - Labs CBC & Chem 7: 06/08/19 08:15 06/08/19 08:15 Labs: Abnormal Lab Results - Last 24 Hours (Table) 06/08/19 06/08/19 Range/Units 08:15 08:15 RDW 15.9 H (11.5-15.5) % ALT 14 L (21-72) U/L Microbiology - Last 24 Hours (Table) 06/02/19 14:55 Blood Culture - Preliminary Blood No Growth after 120 hours <Rah Quispe - Last Filed: 06/08/19 13:43> Subjective As above. Patient doing well today. Awaiting plans for outpatient wound VAC arrangements. Stable for discharge when cleared by medicine. Objective - Vital Signs Vital signs: Vital Signs Temp 98.1 F 06/08/19 05:00 Pulse 100 06/08/19 05:00 Resp 20 06/08/19 08:00 BP 154/92 06/08/19 05:00 Pulse Ox 97 06/08/19 05:00 Intake & Output 06/07/19 06/08/19 06/08/19 18:59 06:59 18:59 Intake Total 300 Output Total 1350 300 475 Balance -1350 0 -475 Intake: Oral 300 Output: Urine 1350 300 475 Other: Voiding Method Toilet Toilet Urinal # Voids 700 3 # Bowel Movements 0 1 - Labs CBC & Chem 7: 06/08/19 08:15 06/08/19 08:15 Labs: Abnormal Lab Results - Last 24 Hours (Table) 06/08/19 06/08/19 Range/Units 08:15 08:15 RDW 15.9 H (11.5-15.5) % ALT 14 L (21-72) U/L Microbiology - Last 24 Hours (Table) 06/02/19 14:55 Blood Culture - Preliminary Blood No Growth after 120 hours Assessment and Plan (1) Open wound of right chest wall with complication Current Visit: Yes Status: Acute Code(s): S21.101A - UNSP OPN WND R FRNT WL OF THORAX W/O PENET THOR CAVITY, INIT SNOMED Code(s): 53440105
[2019-06-08] MEDS: MELATONIN 3 MG TABLET PO SCH (21:33)
[2019-06-09] MEDS: NICOTINE 21MG/24HR PATCH TRANSDERM SCH (08:23)
[2019-06-09] MEDS: PANTOPRAZOLE 40 MG TABLET PO SCH (08:24)
[2019-06-09] MEDS: CEFEPIME 2 GM in SODIUM CHLORIDE 0.9% 100 ML IVPB SCH ×2 (08:24→20:38)
--- NOTE | 2019-06-09 09:00 | P.PN ---
Subjective Progress Note Date: 06/09/19 Principal diagnosis: Right chest wound Patient doing well today. He is anxious to go home. Apparently home care has been arranged with wound VAC therapy in place. Objective - Vital Signs Vital signs: Vital Signs Temp 97.9 F 06/09/19 06:11 Pulse 84 06/09/19 06:11 Resp 16 06/09/19 06:11 BP 154/87 06/09/19 06:11 Pulse Ox 97 06/09/19 06:11 Intake & Output 06/08/19 06/09/19 06/09/19 18:59 06:59 18:59 Intake Total 1000 Output Total 475 1425 Balance 525 -1425 Intake: Oral 1000 Output: Urine 475 1425 Other: Voiding Method Urinal # Voids 4 2 # Bowel Movements 1 0 - Exam Right chest wall wound VAC in place, mild tenderness, mild erythema - Labs CBC & Chem 7: 06/08/19 08:15 06/08/19 08:15 Labs: Microbiology - Last 24 Hours (Table) 06/03/19 21:58 Gram Stain - Final Chest Wound Culture - Final Methicillin resist S. aureus Escherichia coli Pseudomonas fluorescens/putida 06/02/19 14:55 Blood Culture - Final Blood No Growth after 144 hours Assessment and Plan (1) Open wound of right chest wall with complication Narrative/Plan: Continue local wound care. Follow-up with infectious disease at the wound care center post discharge. Follow-up with myself or Dr. Fraire on an as-needed basis at this point. Current Visit: Yes Status: Acute Code(s): S21.101A - UNSP OPN WND R FRNT WL OF THORAX W/O PENET THOR CAVITY, INIT SNOMED Code(s): 90028709
[2019-06-09 10:54] VITALS: BMI 34.5
[2019-06-09] MEDS ORDERED: VANCOMYCIN TROUGH DUE 1 EACH MISC MISCELLANE ONE (11:00)
[2019-06-09] MEDS: VANCOMYCIN 1,750 MG in SODIUM CHLORIDE 0.9% 500 ML 500 ML IVPB SCH (12:06)
[2019-06-09] MEDS: HYDROcodone/APAP 5-325MG 1 EACH TAB PO PRN ×3 (12:06→20:37)
[2019-06-09] MEDS: MELATONIN 3 MG TABLET PO SCH (20:37)
[2019-06-09 22:00] VITALS: RESP 20
[2019-06-09] MEDS: VANCOMYCIN 1,500 MG in SODIUM CHLORIDE 0.9% 250 ML IVPB SCH (23:35)
[2019-06-10] MEDS: HYDROcodone/APAP 5-325MG 1 EACH TAB PO PRN ×2 (00:31→08:46)
[2019-06-10 04:52] VITALS: BP 151/91; PULSE 73; TEMP 97.8
[2019-06-10] MEDS: CEFEPIME 2 GM in SODIUM CHLORIDE 0.9% 100 ML IVPB SCH (08:24)
[2019-06-10] MEDS: PANTOPRAZOLE 40 MG TABLET PO SCH (08:24)
[2019-06-10] MEDS: NICOTINE 21MG/24HR PATCH TRANSDERM SCH (08:24)
--- NOTE | 2019-06-10 11:12 | P.PN ---
<Pennie Jade - Last Filed: 06/10/19 11:10> Subjective Progress Note Date: 06/10/19 CHIEF COMPLAINT: Right upper chest wound HISTORY OF PRESENT ILLNESS: Patient is status post debridement of right upper chest wound completed on 06/04/[address] Quispe. Patient reports his pain is tolerable today. Tolerating diet. Denies nausea or vomiting. Wound vac to chest wall noted with surrounding erythema. He is anxious to be discharged home. PHYSICAL EXAM: VITAL SIGNS: Reviewed. GENERAL: Well-developed in no acute distress. HEENT: No sclera icterus. Extraocular movements grossly intact. Moist buccal mucosa. Head is atraumatic, normocephalic. CHEST: Wound vac to right upper chest with surrounding erythema. Minimal tenderness. ABDOMEN: Soft. Nondistended. Nontender. NEUROLOGIC: Alert and oriented. Cranial nerves II through XII grossly intact. ASSESSMENT: 1. Right upper chest wall wound, s/p debridement PLAN: 1. Continue wound vac 2. Ceftin prescribed at discharge per infectious disease. Tylenol for pain upon discharge. 3. He is stable for discharge from a surgical standpoint. Case management continuing to work on discharge planning and wound vac approval from insurance [employer]. Patient may follow up with Dr. Quispe outpatient as needed. Nurse practitioner note has been reviewed by physician. Signing provider agrees with the documented findings, assessment, and plan of care. Objective - Vital Signs Vital signs: Vital Signs Temp 97.8 F 06/10/19 04:45 Pulse 73 06/10/19 04:45 Resp 06/10/19 08:00 BP 151/91 06/10/19 04:45 Pulse Ox 96 06/10/19 04:45 Intake & Output 06/09/19 06/10/19 06/10/19 18:59 06:59 18:59 Intake Total 750 300 Balance 750 300 Weight 115.666 kg Intake: Oral 750 300 Other: Voiding Method Urinal Urinal # Voids 2 2 - Labs CBC & Chem 7: 06/08/19 08:15 06/10/19 07:32 <Rah Quispe - Last Filed: 06/10/19 16:30> Objective - Vital Signs Vital signs: Vital Signs Temp 97.8 F 06/10/19 04:45 Pulse 73 06/10/19 04:45 Resp 06/10/19 08:00 BP 151/91 06/10/19 04:45 Pulse Ox 96 06/10/19 04:45 Intake & Output 06/09/19 06/10/19 06/10/19 18:59 06:59 18:59 Intake Total 750 300 Balance 750 300 Weight 115.666 kg Intake: Oral 750 300 Other: Voiding Method Urinal Urinal # Voids 2 2 - Labs CBC & Chem 7: 06/08/19 08:15 06/10/19 07:32 Assessment and Plan (1) Open wound of right chest wall with complication Status: Acute Code(s): S21.101A - UNSP OPN WND R FRNT WL OF THORAX W/O PENET THOR CAVITY, INIT SNOMED Code(s): 85501067
[2019-06-10] MEDS: VANCOMYCIN 1,500 MG in SODIUM CHLORIDE 0.9% 250 ML IVPB SCH (11:20)
--- NOTE | 2019-06-10 12:58 | P.DS ---
Providers Date of admission: 06/02/19 16:17 Expected date of discharge: 06/10/19 Attending physician: Randy Leroy Consults: 06/02/19 16:17 Consult Physician Urgent Consulting Provider: Devin Dyer Consult Reason/Comments: Chest wound and cellulitis Do you want consulting provider notified?: Yes 06/02/19 16:21 Consult Physician Urgent Consulting Provider: Dennys Zafar Consult Reason/Comments: T-cell lymphoma Do you want consulting provider notified?: Yes 06/03/19 11:19 Consult Physician Urgent Consulting Provider: Pacheco Fraire Consult Reason/Comments: Inicion and Drainage of right chest from old infected port Do you want consulting provider notified?: Yes 06/04/19 09:00 Consult Physician Routine Consulting Provider: [facility] Consult Reason/Comments: [facility] Do you want consulting provider notified?: Yes Primary care physician: [facility] Course: -Anterior right chest wall wound with cellulitis, abscess secondary to chemotherapy extravasation into the chest wall tissue around the site of previous port. Status post debridement. MRSA, E. coli, Pseudomonas fluorescens/putida. Wound VAC applied. -Hypertension -Obesity, BMI 34.6 -Pancytopenia -lymphoma, non-Hodgkin's -Dyslipidemia -Right-sided hydronephrosis Hospital course:This 54-year-old gentleman admitted with right chest-previous site of Gnwrzy-x-[id number]- open wound, cellulitis status post chemotherapy extravasation. Antibiotics and wound care as per infectious disease. Tissue cultures pending. Surgery consulted for potential debridement. Afebrile. Evaluated by surgery, scheduled for debridement today. Maintained on IV antibiotics as per ID. Cultures pending. Denies chest pain, palpitations or shortness of breath. Afebrile. Status post debridement. Wound VAC applied. Significant clinical improvement. Cleared by all consults for discharge. DC antibiotics as per ID. Pain management as per surgery.Patient is being discharged home in stable condition with guarded prognosis. EXAM: GENERAL: Alert & Oriented X 3, no acute distress CARDIOVASCULAR: S1, S2 regular.. No murmur RESPIRATION: Breath sounds diminished in the bases. ABDOMEN: Soft, nontender . No guarding. no masses palpable. Bowel sounds heard. NERVOUS SYSTEM: No focal deficits. Right chest wound VAC present. Microbiology 06/03/19 21:58 Chest Gram Stain - Final 06/03/19 21:58 Chest Wound Culture - Final Methicillin resist S. aureus Escherichia coli Pseudomonas fluorescens/putida 06/02/19 14:55 Blood Blood Culture - Final No Growth after 144 hours 06/02/19 21:18 Urine,Clean Catch Urine Culture - Final The impression and plan of care has been dictated as directed. : I performed a history and examination of this patient, discussed the same with the dictator. I agree with the dictator's note ,documented as a scribe. Any additional findings or plans will be noted. Time taken: 35 minutes Patient Condition at Discharge: Stable Plan - Discharge Summary Discharge Rx Participant: No New Discharge Prescriptions: New Cefuroxime Axetil [Ceftin] 500 mg PO BID #20 tab diphenhydrAMINE [Benadryl] 25 mg PO BID PRN cap PRN Reason: Itching Nicotine 21Mg/24Hr Patch [Habitrol] 1 patch TRANSDERM DAILY #30 patch Pantoprazole [Protonix] 40 mg PO AC-BRKFST #30 tablet. Acetaminophen Tab [Tylenol Tab] 650 mg PO Q4H PRN #30 tablet PRN Reason: Pain Continue Albuterol Sulfate [Albuterol Sulfate Hfa] 2 puff INHALATION RT-Q4H PRN PRN Reason: Shortness Of Breath Discharge Medication List Albuterol Sulfate [Albuterol Sulfate Hfa] 2 puff INHALATION RT-Q4H PRN 05/20/19 [History] Acetaminophen Tab [Tylenol Tab] 650 mg PO Q4H PRN #30 tablet 06/08/19 [Rx] Cefuroxime Axetil [Ceftin] 500 mg PO BID #20 tab 06/08/19 [Rx] Nicotine 21Mg/24Hr Patch [Habitrol] 1 patch TRANSDERM DAILY #30 patch 06/08/19 [Rx] Pantoprazole [Protonix] 40 mg PO AC-BRKFST #30 tablet. 06/08/19 [Rx] diphenhydrAMINE [Benadryl] 25 mg PO BID PRN cap 06/08/19 [Rx] Follow up Appointment(s)/Referral(s): Rah Quispe MD [Medical Doctor] - As Needed Randy Leroy MD [Primary Care Provider] - 06/17/19 (Office unavailable, please call for appointment. ) [facility], [NON-STAFF] - [facility],. [NON-STAFF] - 06/16/19 2:00 pm (with Dr Brito) Patient Instructions/Handouts: MRSA (Methicillin-Resistant Staphylococcus Aureus) (DC), Acute Wounds (DC) Activity/Diet/Wound Care/Special Instructions: Dr Mohan in the past has called in Buspar 30 mg BID Seroquel 200 mg 1 q HS Zoloft 100 mg (200 mg daily) Strattera 80 mg QD last called in 12/22 No smoking, cessation information provided. Low fat diet. Activity as tolerated. Discharge Disposition: HOME WITH HOME HEALTH SERVICES
--- NOTE | 2019-06-10 13:07 | P.PN ---
Subjective Progress Note Date: 06/09/19 This 54-year-old gentleman admitted with right chest-previous site of Crcuji-a-Bfeh- open wound, cellulitis status post chemotherapy extravasation, status post debridement. Maintained on IV antibiotics/wound VAC as per infectious disease. Afebrile . Good diet intake with no nausea vomiting or diarrhea. Tolerating exertion well. Eager for discharge. Objective - Vital Signs Vital signs: Vital Signs Temp 97.4 F L 06/09/19 14:15 Pulse 80 06/09/19 15:26 Resp 18 06/09/19 15:26 BP 143/93 06/09/19 14:15 Pulse Ox 97 06/09/19 14:15 Intake & Output 06/08/19 06/09/19 06/09/19 18:59 06:59 18:59 Intake Total 1000 750 Output Total 475 1425 Balance 525 -1425 750 Weight 115.666 kg Intake: Oral 1000 750 Output: Urine 475 1425 Other: Voiding Method Urinal Urinal # Voids 4 2 2 # Bowel Movements 1 0 - Exam PHYSICAL EXAM: VITAL SIGNS: As above GENERAL: Sitting up in chair, no acute distress HEENT: Conjunctivae normal. eyes normal. Oral mucosa moist NECK: No JVD. No thyroid enlargement. No LNs CARDIOVASCULAR: S1, S2 regular.No murmur RESPIRATION: Breath sounds diminished in the bases. Scattered rhonchi, no crackles. No wheezing. ABDOMEN: Soft, nontender . No guarding. no masses palpable. Bowel sounds heard. LEGS: No edema. no swelling. No calf tenderness. PSYCHIATRY: Alert and oriented X3, mood and affect normal. NERVOUS SYSTEM: Cranial N 2-12 grossly normal. Moves all 4 limbs. Diffuse weakness No focal deficits. Strength and sensation grossly intact.. Skin: Right anterior chest wall, prior site of Akzwax-k-Xxcj; wound VAC to right chest wall present with improving erythema, mild tenderness. Microbiology - Last 24 Hours (Table) 06/03/19 21:58 Gram Stain - Final Chest Wound Culture - Final Methicillin resist S. aureus Escherichia coli Pseudomonas fluorescens/putida 06/02/19 14:55 Blood Culture - Final Blood No Growth after 144 hours - Labs CBC & Chem 7: 06/08/19 08:15 06/10/19 07:32 Labs: Microbiology - Last 24 Hours (Table) 06/03/19 21:58 Gram Stain - Final Chest Wound Culture - Final Methicillin resist S. aureus Escherichia coli Pseudomonas fluorescens/putida 06/02/19 14:55 Blood Culture - Final Blood No Growth after 144 hours Assessment and Plan Assessment: -Anterior right chest wall wound with cellulitis, possible abscess secondary to chemotherapy extravasation into the chest wall tissue around the site of previous port. Status post debridement. Wound cultures reporting MRSA, E. coli, pseudomonas fluorescens/putida. -Hypertension -Obesity, BMI 34.6 -Pancytopenia -lymphoma, non-Hodgkin's -Abnormal LFTs, improving -Dyslipidemia -Right-sided hydronephrosis Plan: Continue current medication regime ,monitoring and symptomatic treatment. COntinue IV antibiotics/Wound vac as per infectious disease. Discharge planning in progress, pending wound VAC authorization. Further recommendations to follow. The impression and plan of care has been dictated as directed. : I performed a history and examination of this patient, discussed the same with the dictator. I agree with the dictator's note ,documented as a scribe. Any additional findings or plans will be noted.
== END 2019-06-10 14:07 | disposition home health service (06) | DRG 264 ==
LOC: EC 13:47 → 4MS4W 16:17
PROVIDERS: ADMIT Family Medicine; ATTEND Family Medicine
PROC: 0KBH0ZZ Excision of Right Thorax Muscle, Open Approach (ICD-10-PCS; 2019-06-04)
PROC: 0JB60ZZ Excision of Chest Subcutaneous Tissue and Fascia, Open Approach (ICD-10-PCS; principal; 2019-06-04 08:45)
DX: T80.810A Extravasation of vesicant antineoplastic chemotherapy, initial encounter (principal); C85.90 Non-Hodgkin lymphoma, unspecified, unspecified site; L03.313 Cellulitis of chest wall; N13.30 Unspecified hydronephrosis; L02.213 Cutaneous abscess of chest wall; T82.7XXD Infection and inflammatory reaction due to other cardiac and vascular devices, implants and grafts, subsequent encounter; E66.9 Obesity, unspecified; E78.5 Hyperlipidemia, unspecified; Z71.6 Tobacco abuse counseling; F17.210 Nicotine dependence, cigarettes, uncomplicated; F31.9 Bipolar disorder, unspecified; I10 Essential (primary) hypertension; J45.909 Unspecified asthma, uncomplicated; K21.9 Gastro-esophageal reflux disease without esophagitis; Z68.34 Body mass index [BMI] 34.0-34.9, adult; B95.62 Methicillin resistant Staphylococcus aureus infection as the cause of diseases classified elsewhere; B96.5 Pseudomonas (aeruginosa) (mallei) (pseudomallei) as the cause of diseases classified elsewhere; B96.20 Unspecified Escherichia coli [E. coli] as the cause of diseases classified elsewhere; Z82.0 Family history of epilepsy and other diseases of the nervous system; Z91.040 Latex allergy status; R94.5 Abnormal results of liver function studies; Z60.2 Problems related to living alone
CPT/HCPCS: 36415; 71260; 80048; 80053; 80202; 81003; 82565; 83605; 85025; 85610; 85730; 87040; 87070; 87077; 87086; 87186; 87205; 88304; 96365; 96366; 96375; 99284

== ENCOUNTER 2019-06-30 18:53 | Inpatient (IN) | payer OTHER ==
[2019-06-30] MEDS: SODIUM CHLORIDE 0.9% 500 ML 500 ML IV SCH (19:24)
--- NOTE | 2019-06-30 19:26 | ED ---
Nausea/Vomiting/Diarrhea HPI - General Chief complaint: Nausea/Vomiting/Diarrhea Stated complaint: nausea/vomiting Time Seen by Provider: 06/30/19 18:55 Source: EMS Mode of arrival: EMS Limitations: no limitations - History of Present Illness Initial comments: 54-year-old male patient with past medical history significant for non-Hodgkin's lymphoma currently receiving chemo treatment presents to the emergency department today for evaluation of nausea and vomiting. Patient states that he has been feeling sick since getting his last treatment one week ago. Patient did take nausea medication today but was unable to hold down. States that he has also had a few episodes of diarrhea. He is reporting lower abdominal discomfort. Patient denies any known fever or chills however did have elevated temperature 100.5F upon arrival. Patient does have an ongoing wound to the right upper chest from a chemo extravasation in January. He denies any hemate mesis, hematochezia, or melena. States he has had a cough with clear sputum production. Denies any nasal congestion, drainage, sore throat, or ear pain. Patient denies any recent rash, shortness breath, chest pain, back pain, numbness, tingling, dizziness, weakness, hematuria, dysuria, urinary urgency, urinary frequency, headache, visual changes, or any other complaints. - Related Data Home Medications Medication Instructions Recorded Confirmed Collagenase [Santyl] 1 applic TOPICAL DAILY 06/30/19 06/30/19 Previous Rx's Medication Instructions Recorded Acetaminophen Tab [Tylenol Tab] 650 mg PO Q4H PRN #30 tablet 06/08/19 Pantoprazole [Protonix] 40 mg PO AC-BRKFST #30 tablet. 06/08/19 Allergies Allergy/AdvReac Type Severity Reaction Status Date / Time latex Allergy Rash/Hives Verified 06/30/19 22:05 ragweed pollen Allergy Unknown Verified 06/30/19 22:05 Review of Systems ROS Statement: Those systems with pertinent positive or pertinent negative responses have been documented in the HPI. ROS Other: All systems not noted in ROS Statement are negative. Past Medical History Past Medical History: Asthma, Cancer, GERD/Reflux Additional Past Medical History / Comment(s): Non hodgkins lymphoma. States current anti bx use for port a cath infection. Has had 2 rounds of chemo, last one february or march 2019 History of Any Multi-Drug Resistant Organisms: MRSA Date of last positivie culture/infection: 06/03/19 MDRO Source:: chest wall Past Surgical History: No Surgical Hx Reported Additional Past Surgical History / Comment(s): Colonoscopy, lymph node biopsy. right chest port a cath Past Anesthesia/Blood Transfusion Reactions: No Reported Reaction Additional Past Anesthesia/Blood Transfusion Reaction / Comment(s): Pt has received blood in past without reaction. Past Psychological History: Bipolar, Depression Smoking Status: Current every day smoker Past Alcohol Use History: Daily Past Drug Use History: Marijuana - Past Family History Father Family Medical History: No Reported History Additional Family Medical History / Comment(s): Father is healthy and is 82 yrs old. Mother Family Medical History: No Reported History Additional Family Medical History / Comment(s): Mother from dementia. General Exam Limitations: no limitations General appearance: alert, in no apparent distress, other (This is a well- developed, well-nourished adult male patient in no acute distress. Vital signs upon presentation are temperature 100.5F, pulse 93, respirations 16, blood pressure 142/84, pulse ox 97% on room air.) Eye exam: Present: normal appearance, PERRL, EOMI. Absent: scleral icterus, conjunctival injection, periorbital swelling ENT exam: Present: normal exam, normal oropharynx, mucous membranes moist Respiratory exam: Present: normal lung sounds bilaterally. Absent: respiratory distress, wheezes, rales, rhonchi, stridor Cardiovascular Exam: Present: regular rate, normal rhythm, normal heart sounds. Absent: systolic murmur, diastolic murmur, rubs, gallop, clicks GI/Abdominal exam: Present: soft, tenderness (Suprapubic), normal bowel sounds. Absent: distended, guarding, rebound, rigid Neurological exam: Present: alert, oriented X3, CN II-XII intact Psychiatric exam: Present: normal affect, normal mood Skin exam: Present: warm, dry, intact, normal color. Absent: rash Course Vital Signs 06/30/19 06/30/19 06/30/19 18:55 21:00 21:23 Temperature 100.5 F H 100.1 F H Pulse Rate 93 99 Respiratory 16 18 Rate Blood Pressure 142/84 151/80 O2 Sat by Pulse 97 96 Oximetry Medical Decision Making - Medical Decision Making 54-year-old male patient presents to the emergency department today for evaluation of nausea and vomiting. Patient is currently being treated for non- Hodgkin's lymphoma with chemotherapy. His oncologist is Dr. Zafar. Physical examination does reveal some suprapubic tenderness. Labs reviewed and did reveal neutropenia with white blood cell count of 0.4. Platelets 99. Lactic acid elevated at 2.2. Patient does have a temperature here between 100.5 and 100.1 oral. Patient also has a healing wound to the right anterior chest wall from a chemo extravasation in January. Patient also reporting cough. Chest x-ray is concerning for possible developing pneumonia. Patient will be started on vancomycin and cefepime time. He'll be admitted to the hospital for further evaluation, antibiotics, IV hydration, and nausea management. We will consult oncology. He'll be admitted to Dr. Leroy. - Lab Data Result diagrams: 06/30/19 19:34 06/30/19 19:34 Lab Results 06/30/19 06/30/19 06/30/19 Range/Units 19:31 19:34 19:34 WBC 0.4 L* (3.8-10.6) k/uL RBC 5.20 (4.30-5.90) m/uL Hgb 14.6 (13.0-17.5) gm/dL Hct 42.4 (39.0-53.0) % MCV 81.5 D (80.0-100.0) fL MCH 28.0 (25.0-35.0) pg MCHC 34.4 (31.0-37.0) g/dL RDW 17.6 H (11.5-15.5) % Plt Count 99 L (150-450) k/uL Neutrophils # NURSE AIDE EVALUATOR Differential Comment Anisocytosis Slight PT (9.0-12.0) sec INR (<1.2) APTT (22.0-30.0) sec Sodium 137 (137-145) mmol/L Potassium 4.9 (3.5-5.1) mmol/L Chloride 102 (98-107) mmol/L Carbon Dioxide 24 (22-30) mmol/L Anion Gap 11 mmol/L BUN 14 (9-20) mg/dL Creatinine 0.98 (0.66-1.25) mg/dL Est GFR (CKD-EPI)AfAm >90 (>60 ml/min/1.73 sqM) Est GFR (CKD-EPI)NonAf 87 (>60 ml/min/1.73 sqM) Glucose 116 H (74-99) mg/dL Lactic Ac Sepsis Rflx Plasma Lactic Acid Marcos (0.7-2.0) mmol/L Calcium 9.8 (8.4-10.2) mg/dL Total Bilirubin 1.1 (0.2-1.3) mg/dL AST 39 (17-59) U/L ALT 30 (21-72) U/L Alkaline Phosphatase 69 (38-126) U/L Total Protein 7.0 (6.3-8.2) g/dL Albumin 4.2 (3.5-5.0) g/dL Urine Color Yellow Urine Appearance Clear (Clear) Urine pH 7.0 (5.0-8.0) Ur Specific Romney 1.008 (1.001-1.035) Urine Protein Negative (Negative) Urine Glucose (UA) Negative (Negative) Urine Ketones Negative (Negative) Urine Blood Negative (Negative) Urine Nitrite Negative (Negative) Urine Bilirubin Negative (Negative) Urine Urobilinogen <2.0 (<2.0) mg/dL Ur Leukocyte Esterase Negative (Negative) 06/30/19 06/30/19 06/30/19 Range/Units 19:34 19:34 19:58 WBC (3.8-10.6) k/uL RBC (4.30-5.90) m/uL Hgb (13.0-17.5) gm/dL Hct (39.0-53.0) % MCV (80.0-100.0) fL MCH (25.0-35.0) pg MCHC (31.0-37.0) g/dL RDW (11.5-15.5) % Plt Count (150-450) k/uL Neutrophils # Differential Comment Anisocytosis PT 9.7 (9.0-12.0) sec INR 0.9 (<1.2) APTT 25.2 (22.0-30.0) sec Sodium (137-145) mmol/L Potassium (3.5-5.1) mmol/L Chloride (98-107) mmol/L Carbon Dioxide (22-30) mmol/L Anion Gap mmol/L BUN (9-20) mg/dL Creatinine (0.66-1.25) mg/dL Est GFR (CKD-EPI)AfAm (>60 ml/min/1.73 sqM) Est GFR (CKD-EPI)NonAf (>60 ml/min/1.73 sqM) Glucose (74-99) mg/dL Lactic Ac Sepsis Rflx Y Plasma Lactic Acid Marcos 2.2 H* (0.7-2.0) mmol/L Calcium (8.4-10.2) mg/dL Total Bilirubin (0.2-1.3) mg/dL AST (17-59) U/L ALT (21-72) U/L Alkaline Phosphatase (38-126) U/L Total Protein (6.3-8.2) g/dL Albumin (3.5-5.0) g/dL Urine Color Urine Appearance (Clear) Urine pH (5.0-8.0) Ur Specific Romney (1.001-1.035) Urine Protein (Negative) Urine Glucose (UA) (Negative) Urine Ketones (Negative) Urine Blood (Negative) Urine Nitrite (Negative) Urine Bilirubin (Negative) Urine Urobilinogen (<2.0) mg/dL Ur Leukocyte Esterase (Negative) - EKG Data -: EKG Interpreted by [facility] EKG Comments: EKG obtained in 194 shows normal sinus rhythm with a ventricular rate of 90, AR interval 168, QRS duration 88, QT 386, QTc 472. No evidence of ST elevation or depression. - Radiology Data Radiology results: report reviewed, image reviewed Two-view x-ray of the chest is obtained. Report was reviewed in its entirety. Impression by Dr. Venegas shows a right basilar airspace disease may represent atelectasis or early developing pneumonia. Disposition Clinical Impression: Neutropenic fever, Vomiting, Infected wound, Pneumonia Disposition: ADMITTED IP TO THIS [facility] Condition: Serious Decision to Admit Reason: Admit from EC Decision Date: 06/30/19 Decision Time: 22:09
[2019-06-30 19:58] LABS: ALT 30 U/L (21-72); AST 39 U/L (17-59); African American GFR (CKD) >90 (>60 ml/min/1.73 sqM); Albumin 4.2 g/dL (3.5-5.0); Alkaline Phosphatase 69 U/L (38-126); Anion Gap 11 mmol/L; Blood Urea Nitrogen 14 mg/dL (9-20); Calcium 9.8 mg/dL (8.4-10.2); Carbon Dioxide 24 mmol/L (22-30); Chloride 102 mmol/L (98-107); Glucose 116 mg/dL (74-99); Potassium 4.9 mmol/L (3.5-5.1); Sodium 137 mmol/L (137-145); Total Bilirubin 1.1 mg/dL (0.2-1.3)
[2019-06-30 19:59] LABS: INR 0.9 (<1.2); Partial Thromboplastin Time 25.2 sec (22.0-30.0); Prothrombin Time 9.7 sec (9.0-12.0)
[2019-06-30 20:11] LABS: Anisocytosis Slight; HCT 42.4 % (39.0-53.0); HGB 14.6 gm/dL (13.0-17.5); MCHC 34.4 g/dL (31.0-37.0); Platelet Count 99 k/uL (150-450); RDW 17.6 % (11.5-15.5)
[2019-06-30 20:13] LABS: MCV 81.5 fL (80.0-100.0); WBC 0.4 k/uL (3.8-10.6)
[2019-06-30 20:13] LABS: Appearance,Urine Clear (Clear); Bilirubin,Urine Negative (Negative); Blood,Urine Negative (Negative); Color,Urine Yellow; Glucose,Urine (UA) Negative (Negative); Ketones,Urine Negative (Negative); Leukocyte Esterase,Urine Negative (Negative); Nitrite,Urine Negative (Negative); Protein,Urine Negative (Negative); Specific Gravity,Urine 1.008 (1.001-1.035); Urobilinogen,Urine <2.0 mg/dL (<2.0)
[2019-06-30] MEDS ORDERED: VANCOMYCIN IV PER PHARMACY 1 EACH MISC MISCELLANE PRN (20:59)
[2019-06-30] MEDS ORDERED: CEFEPIME 2 GM in SODIUM CHLORIDE 0.9% 100 ML IVPB STA (20:59)
[2019-06-30] MEDS ORDERED: NALOXONE 0.4 MG/ML 1 ML VIAL IV PRN (21:01)
[2019-06-30] MEDS ORDERED: PROCHLORPERAZINE SUPPOSITORY 25 MG SUPP RECTAL PRN (21:01)
[2019-06-30] MEDS ORDERED: ONDANSETRON 4 MG/2 ML VIAL IVP PRN (21:01)
[2019-06-30] MEDS ORDERED: VANCOMYCIN 1,750 MG in SODIUM CHLORIDE 0.9% 500 ML 500 ML IVPB STA (21:03)
[2019-06-30] MEDS ORDERED: PROMETHAZINE INJ 25 MG in SODIUM CHLORIDE 0.9% 50 ML IVPB STA (21:12)
[2019-06-30] MEDS: SODIUM CHLORIDE 0.9% 1,000 ML IV SCH (21:19)
--- NOTE | 2019-06-30 21:22 | XR ---
EXAMINATION TYPE: XR chest 2V DATE OF EXAM: 06/30/2019 COMPARISON: 03/19/2019 HISTORY: Nausea and vomiting. Recent chemotherapy. TECHNIQUE: Frontal and lateral views of the chest are obtained. FINDINGS: The right lower lobe strand-like opacity overlies the lower ribs. Remainder the lungs are well aerated. Left-sided PICC is similar in position. Right-sided Mediport has been removed. Cardia m ediastinal silhouette is stable. Mild degenerative changes of the spine. IMPRESSION: The right basilar airspace disease may represent atelectasis or early developing pneumon ia.
[2019-06-30] MEDS ORDERED: predniSONE 50 MG TAB PO SCH (22:45)
[2019-06-30] MEDS: ACETAMINOPHEN TAB 325 MG TAB PO PRN (23:16)
[2019-07-01] MEDS: CEFEPIME 2 GM in SODIUM CHLORIDE 0.9% 100 ML IVPB SCH ×4 (05:26→22:14)
[2019-07-01] MEDS: PANTOPRAZOLE 40 MG TABLET PO SCH (08:13)
[2019-07-01] MEDS ORDERED: COLLAGENASE 250 UNIT/GM OINTMENT 30 GM TUBE TOPICAL SCH (09:00)
[2019-07-01 10:34] VITALS: BMI 35.9
[2019-07-01] MEDS: VANCOMYCIN 1,750 MG in SODIUM CHLORIDE 0.9% 500 ML 500 ML IVPB SCH ×2 (11:16→20:27)
--- NOTE | 2019-07-01 13:28 | P.CONS ---
History of Present Illness - Reason for Consult Consult date: 07/01/19 neutropenic on chemo Requesting physician: Rachel Easton - Chief Complaint fever - History of Present Illness The patient is a 54-year-old male pt of Dr. 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 Initial consult 12/15/18, complaints of persistent fatigue, progressive shortness of breath on exertion, weight loss of about 30 pounds in the prior 3-4 months. Imaging showed evidence of obstructive uropathy and diffuse adenopathy above and below the diaphragm, right supraclavicular nodes were palpable. Right s upraclavicular lymph node biopsy on 12/16/18, initial biopsy report appeared to indicate Hodgkin lymphoma versus anaplastic T-cell lymphoma. Specimen sent to [facility] for consultation. 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 ALK testing was negative. B and T-cell rearrangement studies were ordered. Surprisingly B cell gene rearrangement was positive, while T-cell rearrangements were negative. Despite the gene rearrangement studies, it was the opinion of the consulting pathologist at the [facility] that the morphologic and IHC characteristics best supported a PTCL. Bone marrow biopsy on 01/15/19 showed significant involvement with lymphoma. Gene nolberto rrangement studies did not show either B or T cell markers!! PET was ordered but the patient did not keep that appointment. He was also referred to the [facility], appointment was delayed due to to have not having insurance. Unfortunately pt was admitted to [facility] with progressive respiratory symptoms. He was started emergently on EPOCH on 02/07/19. He had extravasation of chemo causing soft tissue damage in the rt upper chest wall, that was able to be managed conservatively. He was admitted with febrile neutropenia to [facility] after C 1. He improved with antibiotics and GCSf. He was admitted for cycle 2 on 03/04/19. He tolerated treatment well and was discharged on 03/09/19. The patient has right chest wall cellulitis since the chemotherapy extravasation. He has had imaging studies since, showing no evidence of abscess formation or free air. He is continued topical therapy with slow but steady improvement. He reports further improvement this time with sloughing off of previously noted extensive scabbing, with healthy pink tissue underneath. Total extent has also diminished. Presents with fever of 100.5 he was recently started on a new regimen for his non-Hodgkin's lymphoma consisting of CHP an adcentris. Review of Systems A 14 point review of systems was assessed and completed and are all negative except for HPI Past Medical History Past Medical History: Asthma, Cancer, GERD/Reflux Additional Past Medical History / Comment(s): Non hodgkins lymphoma. States current anti bx use for port a cath infection. Has had 2 rounds of chemo, last one february or march 2019 History of Any Multi-Drug Resistant Organisms: MRSA Year Discovered:: 06/03/19 MDRO Source:: chest wall Past Surgical History: No Surgical Hx Reported Additional Past Surgical History / Comment(s): Colonoscopy, lymph node biopsy. right chest port a cath Past Anesthesia/Blood Transfusion Reactions: No Reported Reaction Additional Past Anesthesia/Blood Transfusion Reaction / Comm: Pt has received blood in past without reaction. Past Psychological History: Bipolar, Depression Smoking Status: Current every day smoker Past Alcohol Use History: Daily Past Drug Use History: Marijuana - Past Family History Father Family Medical History: No Reported History Additional Family Medical History / Comment(s): Father is healthy and is 82 yrs old. Mother Family Medical History: No Reported History Additional Family Medical History / Comment(s): Mother from dementia. Medications and Allergies Home Medications Medication Instructions Recorded Confirmed Type Acetaminophen Tab [Tylenol Tab] 650 mg PO Q4H PRN #30 tablet 06/08/19 06/30/19 Rx Pantoprazole [Protonix] 40 mg PO AC-BRKFST #30 tablet. 06/08/19 06/30/19 Rx Collagenase [Santyl] 1 applic TOPICAL DAILY 06/30/19 06/30/19 History Allergies Allergy/AdvReac Type Severity Reaction Status Date / Time latex Allergy Rash/Hives Verified 06/30/19 22:05 ragweed pollen Allergy Unknown Verified 06/30/19 22:05 Physical Exam Vitals: Vital Signs Temp Pulse Pulse Resp BP BP Pulse Ox 07/01/19 11:38 97.6 F 95 20 128/74 99 07/01/19 05:26 97.0 F L 94 16 129/72 97 07/01/19 01:00 97.5 F L 99 18 109/60 93 L 06/30/19 23:00 98 F 100 16 146/86 95 06/30/19 21:23 99 18 151/80 96 06/30/19 21:00 100.1 F H 06/30/19 18:55 100.5 F H 93 16 142/84 97 Intake and Output 06/30/19 07/01/19 07/01/19 22:59 06:59 14:59 Intake Total 1980 Output Total 1275 500 Balance 705 -500 Intake: Intake, IV Titration 800 Amount Sodium Chloride 0.9% 1, 300 000 ml @ 75 mls/hr IV . [id number] DA Rx#:[id number] Vancomycin 1,750 mg In 500 Sodium Chloride 0.9% 500 ml 500 ml @ 167 mls/hr IVPB Q12H DA Rx#: [id number] Oral 1180 Output: Urine 975 500 Emesis 300 Other: Voiding Method Urinal # Voids 2 Weight 120.202 kg 120.202 kg General: Alert and Oriented x3, No Acute Distress Head: Normocytic, Atraumatic Neck: Supple Mouth: No Lesions, No Thrush Eyes: Non-sclerotic No Palpable cervical, supraclavicular, axillary adenopathy Heart: Regular Rate, Regular Rhythm Lungs: Clear to Ausculations, No Wheeze, No Rhonchi, Diminishe bilateral lower lobes, No increased respiratory effort noted Abdomen: Soft, Non-Distended, Non-Tended, BSx4 Extremities: No Edema, Equal Strength Neurological: No Focal Defects: No sensory or motor deficits noted Psych: Calm and cooperative Results CBC & Chem 7: 06/30/19 19:34 06/30/19 19:34 Labs: Abnormal Lab Results - Last 24 Hours (Table) 06/30/19 06/30/19 06/30/19 Range/Units 19:34 19:34 19:34 WBC 0.4 L* (3.8-10.6) k/uL RDW 17.6 H (11.5-15.5) % Plt Count 99 L (150-450) k/uL Glucose 116 H (74-99) mg/dL Plasma Lactic Acid Marcos 2.2 H* (0.7-2.0) mmol/L 06/30/19 Range/Units 23:36 WBC (3.8-10.6) k/uL RDW (11.5-15.5) % Plt Count (150-450) k/uL Glucose (74-99) mg/dL Plasma Lactic Acid Marcos 3.5 H* (0.7-2.0) mmol/L Assessment and Plan Plan: 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 - Plan for next line Pancytopeniadue to underlying non-Hodgkin's lymphoma. Hemoglobin was 6.8 today. 1 unit of irradiated packed rbc's will be ordered - With counts decreasing more as he approaches dev prophylaxic anti-viral, antifungal and antibiotics are resonable Febrile Neutropenia: - Will add Zarxio, did not receive Neulasta after last cycle. - ID following - Vanco and cefepime - Additional palacios cultures pending Extravasation of Vesicant Right Chest Wall [facility] - Positive culture of wound from February 2019 - IV abx - Unfortunately still with wound care and recurrent infection - ID and wound care following Deferred to the admitting service for management of the patient's other medical problems Physician Attestation: I have performed the full physical examination and reviewed the full history of this patient, as well as pertinent findings. I have created the compled impression and recommendations. I agree with the above dictation by IVAN Samaniego. This dictation has been written as a scribe. IVAN Samaniego
[2019-07-01] MEDS: SODIUM CHLORIDE 0.9% 1,000 ML IV SCH ×2 (15:12→20:51)
[2019-07-01] MEDS: FILGRASTIM-SNDZ 480 MCG/0.8 ML SYRINGE SQ SCH (15:23)
[2019-07-01] MEDS ORDERED: diphenhydrAMINE 50 MG/ML 1 ML VIAL IVP STA (20:23)
[2019-07-01] MEDS ORDERED: methylPREDNISolone SOD SUCCI 40 MG/ML 1 ML VIAL IV STA (20:24)
[2019-07-01] MEDS: HEPARIN SODIUM,PORCINE 5,000 UNIT/ML 1 ML VIAL SQ SCH (20:44)
--- NOTE | 2019-07-01 22:55 | P.CONS ---
History of Present Illness - Reason for Consult Consult date: 07/01/19 - Chief Complaint Fever - History of Present Illness 54-year-old male that has a very complex medical history which began in December of this year. At that point in time the patient was feeling poorly was having fevers chills in a 30 pound weight loss. He was feeling very poorly overall was hospitalized at a local facility and then transferred to [facility]. 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 The patient has been initiated to chemotherapy. There was great dif ficulties because of significant psychosocial problems, eventually the family was able to come together and provide him with residence and transportation for his interventional chemotherapy. It is related the patient was cared for outside facility. Chemotherapy was given through the [facility] and unfortunately there was extravasation of the chemotherapy into the chest wall tissue around the buried port. He's been having ongoing difficulties of the site. He is following with the soap maker in receiving his chemotherapy. She's also been following the wound healing Center reason receiving therapy and most recently negative pressure therapy to the right anterior chest wall extensive ulceration. He was doing relatively well but now presents hospital feeling weak and ill. Nausea and emesis fever and chills been occurring. With evidence the febrile neutropenia the consult was requested. Review of Systems does complain of fever and feeling poorly HEENT:Denies headache or acute visual change. Denies sinus or mouth discomforts. Denies neck stiffness or pain. Denies significant oral cavity pain. Denies difficulty on swallowing. Lungs: Denies significant shortness of breath, cough, sputum production, or hemoptysis. Cardiovascular: Denies significant shortness of breath, chest pain, chest wall pain, orthopnea, dyspnea on exertion, syncope Gastrointestinal:Denies nausea, vomiting, diarrhea, constipation, hematemesis, melena, hematochezia. No no significant change of bowel habit noticed. Musculoskeletal: denies significant myalgias or arthralgias. No new joint swelling. Denies new back pain. Skin: worsening to the wound area to the right anterior chest wall with purulence and drainage Neuro: Denies headache or visual change. Denies any new onset weakness or difficulty with ambulation. Denies falls or seizures. Psychiatric:Denies anxiety or depression. Endocrine: Ongoing fatigue he had extensive weight loss originally now st abilized Past Medical History Past Medical History: Asthma, Cancer, GERD/Reflux Additional Past Medical History / Comment(s): Non hodgkins lymphoma. States current anti bx use for port a cath infection. Has had 2 rounds of chemo, last one february or march 2019 History of Any Multi-Drug Resistant Organisms: MRSA Year Discovered:: 06/03/19 MDRO Source:: chest wall Past Surgical History: No Surgical Hx Reported Additional Past Surgical History / Comment(s): Colonoscopy, lymph node biopsy. right chest port a cath Past Anesthesia/Blood Transfusion Reactions: No Reported Reaction Additional Past Anesthesia/Blood Transfusion Reaction / Comm: Pt has received blood in past without reaction. Past Psychological History: Bipolar, Depression Additional Psychological History / Comment(s): Manic. single. lives with shawn prater. No animals. No travel. No experience. Does not work outside of the home Smoking Status: Current every day smoker Past Alcohol Use History: Daily Past Drug Use History: Marijuana - Past Family History Father Family Medical History: No Reported History Additional Family Medical History / Comment(s): Father is healthy and is 82 yrs old. Mother Family Medical History: No Reported History Additional Family Medical History / Comment(s): Mother from dementia. Medications and Allergies Home Medications and Allergies Comment(s): Current Medications Acetaminophen (Tylenol Tab) 650 mg PO Q6HR PRN PRN Reason: Fever and/ or Pain Last Admin: 06/30/19 23:16 Dose: 650 mg Documented by: Acetaminophen (Tylenol Tab) 650 mg PO Q4H PRN PRN Reason: Pain Filgrastim (Zarxio) 480 mcg SQ DAILY [facility] Last Admin: 07/01/19 15:23 Dose: 480 mcg Documented by: Heparin Sodium (Porcine) (Heparin) 5,000 unit SQ Q12HR [facility] Last Admin: 07/01/19 20:44 Dose: Not Given Documented by: Cefepime HCl 2 gm/ Sodium (Chloride) 100 mls @ 200 mls/hr IVPB Q8H [facility] Last Admin: 07/01/19 22:14 Dose: Not Given Documented by: Sodium Chloride (Saline 0.9%) 1,000 mls @ 75 mls/hr IV .[id number] [facility] Last Admin: 07/01/19 20:51 Dose: 75 mls/hr Documented by: Vancomycin HCl 1,750 mg/ (Sodium Chloride) 500 mls @ 167 mls/hr IVPB Q12H [facility] Last Admin: 07/01/19 20:27 Dose: Not Given Documented by: Naloxone HCl (Narcan) 0.2 mg IV Q2M PRN PRN Reason: Opioid Reversal Ondansetron HCl (Zofran) 4 mg IVP Q8HR PRN PRN Reason: Nausea And Vomiting Last Admin: 06/30/19 21:18 Dose: 4 mg Documented by: Pantoprazole Sodium (Protonix) 40 mg PO -BRKFST [facility] Last Admin: 07/01/19 08:13 Dose: 40 mg Documented by: Prochlorperazine Maleate (Compazine) 25 mg RECTAL Q12HR PRN PRN Reason: Nausea And Vomiting Last Admin: 07/01/19 01:37 Dose: 25 mg Documented by: Home Medications Medication Instructions Recorded Confirmed Type Acetaminophen Tab [Tylenol Tab] 650 mg PO Q4H PRN #30 tablet 06/08/19 06/30/19 Rx Pantoprazole [Protonix] 40 mg PO [facility] #[facility] tablet. 06/08/19 06/30/19 Rx Collagenase [Santyl] 1 applic TOPICAL DAILY 06/30/19 06/30/19 History Allergies Allergy/AdvReac Type Severity Reaction Status Date / Time latex Allergy Rash/Hives Verified 06/30/19 22:05 ragweed pollen Allergy Unknown Verified 06/30/19 22:05 Physical Exam Vitals: Vital Signs Temp Pulse Resp BP Pulse Ox 07/01/19 19:58 97.8 F 88 18 114/61 97 07/01/19 11:38 97.6 F 95 20 128/74 99 07/01/19 05:26 97.0 F L 94 16 129/72 97 07/01/19 01:00 97.5 F L 99 18 109/60 93 L 06/30/19 23:00 98 F 100 16 146/86 95 Intake and Output 07/01/19 07/01/19 07/01/19 06:59 14:59 22:59 Intake Total 1980 1380 350 Output Total 1275 500 Balance 705 880 350 Intake: Intake, IV Titration 800 900 350 Amount Cefepime 2 gm In Sodium 100 Chloride 0.9% 100 ml @ 200 mls/hr IVPB Q8H DA Rx#:[id number] Sodium Chloride 0.9% 1, 300 300 350 000 ml @ 75 mls/hr IV . [id number] DA Rx#:[id number] Vancomycin 1,750 mg In 500 Sodium Chloride 0.9% 500 ml 500 ml @ 167 mls/hr IVPB ONCE STA Rx#: [id number] Vancomycin 1,750 mg In 500 Sodium Chloride 0.9% 500 ml 500 ml @ 167 mls/hr IVPB Q12H DA Rx#: [id number] Oral 1180 480 Output: Urine 975 500 Emesis 300 Other: Voiding Method Urinal Toilet # Voids 2 500 1 Weight 120.202 kg HEENT: Anicteric, conjunctiva are pink and moist, nasal or oral mucosa are without lesion. The neck is supple without lymphadenopathy or thyromegaly. No oral thrush is noted. Lungs: good bilateral air entry, there are no significant crackles or wheezes, no bronchial sounds or egophony. Heart: Regular rate and rhythm with an audible S1-S2, no S3 or S4 noted. No significant murmur click or rub noted. Abdomen: Positive bowel sounds, soft and nontender, there is no palpable masses or organomegaly. Abdomen is without guarding or rebound. Extremities:Upper extremities reveal evidence of equal pulses, no lesions are seen, no petechiae or telangiectasia. The lower extremities Capillary refill was brisk.Reveal evidence of some bilateral lower extremity edema there is evidence of erythema that is present from the dorsum of the foot to just below the knee. It is not tender and appears to be somewhat petechial in nature Skin: Left chest shows no acute abnormalities. The upper and lower extremities without significant lesions. The right anterior chest wall shows evidence of the area of the removal of the [id number]. With the local wound care there i s no evidence of an extensive granulation however along the inferior aspect of the chest wall ulceration as per the nursing photography between approximately 5:00 is evidence of the tissue appears to be fat necrosis. The surrounding erythema has improved. Neuro:Awake and alert, oriented to person place and time. No gross focal sensory motor deficits noted. Musculoskeletal: Patient is ambulatory No acute joint effusions are noted. Lymph: No cervical, supraclavicular, axillary, epitrochlear, or inguinal lymphadenopathy was noted. Results CBC & Chem 7: 06/30/19 19:34 06/30/19 19:34 Labs: Abnormal Lab Results - Last 24 Hours (Table) 06/30/19 Range/Units 23:36 Plasma Lactic Acid Marcos 3.5 H* (0.7-2.0) mmol/L Microbiology - Last 24 Hours (Table) 06/30/19 19:34 Blood Culture - Preliminary Blood No Growth after 24 hours Laboratory Results WBC 0.4 k/uL (3.8-10.6) L* 06/30/19 19:34 RBC 5.20 m/uL (4.30-5.90) 06/30/19 19:34 Hgb 14.6 gm/dL (13.0-17.5) 06/30/19 19:34 Hct 42.4 % (39.0-53.0) 06/30/19 19:34 MCV 81.5 fL (80.0-100.0) D 06/30/19 19:34 MCH 28.0 pg (25.0-35.0) 06/30/19 19:34 MCHC 34.4 g/dL (31.0-37.0) 06/30/19 19:34 RDW 17.6 % (11.5-15.5) H 06/30/19 19:34 Plt Count 99 k/uL (150-450) L 06/30/19 19:34 Neutrophils # [employer] 06/30/19 19:34 Differential Comment 06/30/19 19:34 Anisocytosis Slight 06/30/19 19:34 PT 9.7 sec (9.0-12.0) 06/30/19 19:34 INR 0.9 (<1.2) 06/30/19 19:34 APTT 25.2 sec (22.0-30.0) 06/30/19 19:34 Sodium 137 mmol/L (137-145) 06/30/19 19:34 Potassium 4.9 mmol/L (3.5-5.1) 06/30/19 19:34 Chloride 102 mmol/L (98-107) 06/30/19 19:34 Carbon Dioxide 24 mmol/L (22-30) 06/30/19 19:34 Anion Gap 11 mmol/L 06/30/19 19:34 BUN 14 mg/dL (9-20) 06/30/19 19:34 Creatinine 0.98 mg/dL (0.66-1.25) 06/30/19 19:34 Est GFR (CKD-EPI)AfAm >90 (>60 ml/min/1.73 sqM) 06/30/19 19:34 Est GFR (CKD-EPI)NonAf 87 (>60 ml/min/1.73 sqM) 06/30/19 19:34 Glucose 116 mg/dL (74-99) H 06/30/19 19:34 Lactic Ac Sepsis Rflx Y 07/01/19 00:13 Plasma Lactic Acid Marcos 1.4 mmol/L (0.7-2.0) 07/01/19 03:50 Calcium 9.8 mg/dL (8.4-10.2) 06/30/19 19:34 Total Bilirubin 1.1 mg/dL (0.2-1.3) 06/30/19 19:34 AST 39 U/L (17-59) 06/30/19 19:34 ALT 30 U/L (21-72) 06/30/19 19:34 Alkaline Phosphatase 69 U/L (38-126) 06/30/19 19:34 Total Protein 7.0 g/dL (6.3-8.2) 06/30/19 19:34 Albumin 4.2 g/dL (3.5-5.0) 06/30/19 19:34 Urine Color Yellow 06/30/19 19:31 Urine Appearance Clear (Clear) 06/30/19 19:31 Urine pH 7.0 (5.0-8.0) 06/30/19 19:31 Ur Specific Central 1.008 (1.001-1.035) 06/30/19 19:31 Urine Protein Negative (Negative) 06/30/19 19:31 Urine Glucose (UA) Negative (Negative) 06/30/19 19:31 Urine Ketones Negative (Negative) 06/30/19 19:31 Urine Blood Negative (Negative) 06/30/19 19:31 Urine Nitrite Negative (Negative) 06/30/19 19:31 Urine Bilirubin Negative (Negative) 06/30/19 19:31 Urine Urobilinogen <2.0 mg/dL (<2.0) 06/30/19 19:31 Ur Leukocyte Esterase Negative (Negative) 06/30/19 19:31 Influenza Type A RNA Not Detected (Not Detectd) 06/30/19 21:25 Influenza Type B (PCR) Not Detected (Not Detectd) 06/30/19 21:25 Microbiology 06/30/19 19:34 Blood Blood Culture - Preliminary No Growth after 24 hours Assessment and Plan (1) Neutropenic fever Current Visit: Yes Status: Acute Code(s): D70.9 - NEUTROPENIA, UNSPECIFIED; R50.81 - FEVER PRESENTING WITH CONDITIONS CLASSIFIED ELSEWHERE SNOMED Code(s): 032776538 (2) Extravasation of vesicant antineoplastic chemotherapy, subsequent encounter Narrative/Plan: 54-year-old male presents to Hospital for evaluation of fever and weakness and some nausea and emesis. He is not certain feels slightly better and the nausea and emesis have settled has been able to eat some clear liquids with no further difficulty. His appetite is improving and looks forward to an advancing diet. His fever has improved but still feels somewhat poorly. He does have leukopenia and thrombocytopenia related to the recent chemotherapy. He's been seen by his oncologist and given growth factors. Blood cultures are process and antibiotic therapy with cefepime and vancomycin have been initiated. Local wound care will be with therahoney they can be changed daily Once discharged if he is feeling somewhat better we'll try to get back to the negative pressure therapy system that seems to have been helping. Pain control is adequate He understands that once his diet has been improved A high protein intake as required. Chest x-rays reviewed potential for a new right lower lobe infiltrate will be monitored. Current Visit: No Status: Acute Code(s): T80.810D - EXTRAVASATION OF VESICANT ANTINEOPLASTIC CHEMOTHERAPY, SUBS SNOMED Code(s): 661724446 (3) Lymphoma Current Visit: No Status: Acute Code(s): C85.90 - NON-HODGKIN LYMPHOMA, UNSPECIFIED, UNSPECIFIED SITE SNOMED Code(s): 840775428
--- NOTE | 2019-07-01 23:27 | HP ---
HISTORY AND PHYSICAL Tbyok[id number][id number]-old white male, non-Hodgkin's lymphoma, receiving chemo, came in with nausea, vomiting, sickness for the past week, unable to hold anything down, nausea, vomiting, a few episodes of diarrhea and lower abdominal discomfort. He has an open chest wound to the right upper chest. Temperature 100.5. There is no hematemesis, hematochezia, melena. Cough, clear sputum production. Open wound with some purulent exudate throughout the right upper chest. Apparently goes to the wound clinic. He has topically daily at home. Protonix 40 mg daily, acetaminophen. Otherwise, 14-point review of systems negative except for mentioned in HPI. PAST MEDICAL HISTORY: 1. Non-Hodgkin's lymphoma. 2. Asthma. 3. GERD. 4. 2 rounds of chemo, last one in February or March of 2019. 5. History of MRSA. 6. Chest wall infection, chronically goes to wound clinic. 7. Colonoscopy. 8. Lymph node biopsy. 9. Right chest Port-A-Cath. 10.Bipolar depression. 11.Current everyday smoker. 12.Daily marijuana. FAMILY HISTORY: Mother with dementia. Father is healthy. PHYSICAL EXAMINATION: VITAL SIGNS: Temperature 97, blood pressure 140s over 80s, respiratory rate 16 to 18, T- max 100.5, pulse 85 to 93. Pupils equal, round, reactive to light and accommodation. External ear canals within normal limits. LUNGS: Normal. Absent rales, rhonchi or stridor. CARDIOVASCULAR: S1, S2. ABDOMEN: Soft. Suprapubic tenderness. Normal bowel sounds. NEUROLOGIC: Cranial nerves are intact. PSYCH: Fair mood and affect. LABS: White count 0.4, hemoglobin 14.6, platelets 99. Sodium 137, potassium 4.9. Lactic acid is elevated at 2.2. He has got fevers. ASSESSMENT: 1. Cellulitis, wound infection of the right upper chest. 2. Lactic acidosis. 3. Status post chemo extravasation. 4. Possibly developing pneumonia, on vancomycin and cefepime through the IV. IV hydration. Consult Nephrology, Oncology, Infectious Disease. Please see further orders. Wound care to the chest. MMODL / IJN: [id number] /
[2019-07-02] MEDS: HEPARIN SODIUM,PORCINE 5,000 UNIT/ML 1 ML VIAL SQ SCH ×2 (08:02→20:09)
[2019-07-02] MEDS: PANTOPRAZOLE 40 MG TABLET PO SCH (08:02)
[2019-07-02] MEDS: FILGRASTIM-SNDZ 480 MCG/0.8 ML SYRINGE SQ SCH (08:03)
--- NOTE | 2019-07-02 08:22 | CONS ---
CONSULTATION Shashank Lamb is a 54-year-old male who presented to the ER at [facility] with nausea and vomiting. He was unable to hold down his medication. He had diarrhea and had a temperature up to 100.5 degrees Fahrenheit. He has a wound in the right upper chest from chemotherapy extravasation in January of 2019. He had his port in this area removed about 2 weeks ago. He denies any shortness of breath, but feels quite weak at this time. 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 He sleeps on his side apparently all the time. History of colonoscopy. History of bipolar disorder. FAMILY HISTORY: Positive for dementia in his mother. His father does not have any long-term medical problems. SOCIAL HISTORY: Patient is an everyday smoker and uses marijuana as well. 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 MEDICATIONS: Prior to admission were collagenase, acetaminophen, and pantoprazole. PHYSICAL EXAMINATION: He was lying in bed. He was sleepy but arousable. He was not short of breath. His blood pressure is 128/74, respiratory rate of 20, pulse rate 95, temperature 97.6, O2 saturation on room air is 93%. HEENT: Reveals redundant tissue in the posterior pharynx. Chest reveals decreased breath sounds. No clear wheeze. Cardiovascular system is S1, S2. Abdomen is soft. There is 1+ edema. There is a surgical dressing over the right chest wall. LABORATORY DATA: White count of 0.4, hemoglobin of 14.6, sodium 137, potassium 4.9, chloride 102, bicarb 24, BUN 14, creatinine 0.98. Plasma lactate is 3.5 with a repeat lactate of 1.4. Chest x-ray shows some strandy opacity in the right lower zone consistent with atelectasis. IMPRESSION: At this time: 1. Neutropenic sepsis. 2. T-cell lymphoma. 3. Possible obstructive sleep apnea. 4. Lactic acidosis in part due to sepsis. 5. Right chest wall wound. At this point in time, we will resuscitate him with fluids. Keep him on cefepime and vancomycin. Have ID further evaluate the patient. Keep him on GI prophylaxis and DVT prophylaxis as well. Depending on how he does we should make further changes to his care. I would like to thank you for allowing me to participate in his care. MMMANUEL / SKYN: [id number] /
[2019-07-02 08:34] LABS: ALT 32 U/L (21-72); AST 25 U/L (17-59); African American GFR (CKD) >90 (>60 ml/min/1.73 sqM); Albumin 3.9 g/dL (3.5-5.0); Alkaline Phosphatase 69 U/L (38-126); Anion Gap 11 mmol/L; Blood Urea Nitrogen 8 mg/dL (9-20); Carbon Dioxide 23 mmol/L (22-30); Chloride 108 mmol/L (98-107); Glucose 133 mg/dL (74-99); Potassium 3.7 mmol/L (3.5-5.1); Sodium 142 mmol/L (137-145); Total Bilirubin 0.8 mg/dL (0.2-1.3); Total Protein 6.5 g/dL (6.3-8.2)
[2019-07-02 08:40] LABS: HCT 42.8 % (39.0-53.0); HGB 14.2 gm/dL (13.0-17.5); MCH 27.5 pg (25.0-35.0); MCHC 33.2 g/dL (31.0-37.0); MCV 82.8 fL (80.0-100.0); Mean Platelet Volume 6.9; Platelet Count 81 k/uL (150-450); RBC 5.17 m/uL (4.30-5.90); RDW 14.1 % (11.5-15.5)
[2019-07-02 08:41] LABS: WBC 0.3 k/uL (3.8-10.6)
[2019-07-02 09:07] LABS: Anisocytosis (M) Present; Poikilocytosis (M) Present
--- NOTE | 2019-07-02 09:23 | XR ---
EXAMINATION TYPE: XR abdomen 2V DATE OF EXAM: 07/02/2019 COMPARISON: NONE HISTORY: Emesis TECHNIQUE: One view abdominal series FINDINGS: The osseous structures are intact. The bowel gas pattern is nonspecific. Lung bases are clear. Calc ifications in the right upper quadrant noted. May been the basis of gallstones. Calcification in the right hemipelvis likely vascular. Arthropathy of the hips. IMPRESSION: 1. Nonspecific abdomen.
--- NOTE | 2019-07-02 10:52 | PN ---
PROGRESS NOTE He was seen again on 07/02/2019. He denies any fever or chills. He has less nausea and is starting to take some soft diet. PHYSICAL EXAMINATION: On physical examination, vitals are stable. He is afebrile. His chest is clear with a right subclavian area wound dressing. Cardiovascular system reveals an S1, S2. Abdomen is soft. There is 1+ pedal edema. IMPRESSION AT THIS TIME: 1. Neutropenic sepsis. 2. Right chest wall wound. 3. Obstructive sleep apnea, likely. Continue antibiotics, IV fluids, advance his diet, increased his activity. Defer to Oncology regarding treatment of his T-cell lymphoma. MMODL / IJN: [id number] /
[2019-07-02] MEDS: VANCOMYCIN 1,750 MG in SODIUM CHLORIDE 0.9% 500 ML 500 ML IVPB SCH (12:34)
[2019-07-02] MEDS: CEFEPIME 2 GM in SODIUM CHLORIDE 0.9% 100 ML IVPB SCH (12:58)
[2019-07-02] MEDS: SODIUM CHLORIDE 0.9% 1,000 ML IV SCH (13:05)
--- NOTE | 2019-07-02 13:39 | P.PN ---
Subjective Progress Note Date: 07/02/19 Principal diagnosis: neutrpoenic fever Afebrile since admission Still neutropenic, on antibiotics Objective - Vital Signs Vital signs: Vital Signs Temp 97.9 F 07/02/19 11:43 Pulse 91 07/02/19 11:43 Resp 17 07/02/19 11:43 BP 127/75 07/02/19 11:43 Pulse Ox 97 07/02/19 11:43 Intake & Output 07/01/19 07/02/19 07/02/19 18:59 06:59 18:59 Intake Total 1380 1880 2480 Output Total 500 Balance 880 1880 2480 Weight 120.202 kg Intake: Intake, IV Titration 900 350 900 Amount Cefepime 2 gm In Sodium 100 Chloride 0.9% 100 ml @ 200 mls/hr IVPB Q8H [facility] Rx#:[id number] Sodium Chloride 0.9% 1, 300 350 900 000 ml @ 75 mls/hr IV . [id number] DA Rx#:[id number] Vancomycin 1,750 mg In 500 Sodium Chloride 0.9% 500 ml 500 ml @ 167 mls/hr IVPB ONCE [facility] Rx#: [id number] Oral 480 1530 1580 Output: Urine 500 Other: Voiding Method Toilet Urinal # Voids 500 2 3 - Exam General: Alert and Oriented x3, No Acute Distress Head: Normocytic, Atraumatic Neck: Supple Mouth: No Lesions, No Thrush Eyes: Non-sclerotic No Palpable cervical, supraclavicular, axillary adenopathy Heart: Regular Rate, Regular Rhythm Lungs: Clear to Ausculations, No Wheeze, No Rhonchi, Diminishe bilateral lower lobes, No increased respiratory effort noted Abdomen: Soft, Non-Distended, Non-Tended, BSx4 Extremities: No Edema, Equal Strength Neurological: No Focal Defects: No sensory or motor deficits noted Psych: Calm and cooperative Chest wall infection - Labs CBC & Chem 7: 07/05/19 07:08 07/05/19 07:08 Labs: Abnormal Lab Results - Last 24 Hours (Table) 07/02/19 07/02/19 07/02/19 Range/Units 07:53 07:53 08:24 WBC 0.3 L* (3.8-10.6) k/uL Plt Count 81 L (150-450) k/uL Chloride 108 H (98-107) mmol/L BUN 8 L (9-20) mg/dL Glucose 133 H (74-99) mg/dL Plasma Lactic Acid Marcos 2.7 H* (0.7-2.0) mmol/L Microbiology - Last 24 Hours (Table) 06/30/19 19:34 Blood Culture - Preliminary Blood No Growth after 24 hours Assessment and Plan Plan: 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 - Plan for next line Pancytopeniadue to underlying non-Hodgkin's lymphoma. Hemoglobin was 6.8 today. 1 unit of irradiated packed rbc's will be ordered - With counts decreasing more as he approaches dev prophylaxic anti-viral, antifungal and antibiotics are resonable Febrile Neutropenia: Improved - Will add Zarxio, did not receive Neulasta after last cycle. - ID following - Vanco and cefepime - Additional palacios cultures pending - PLan to Add neulast to future Chemo Extravasation of Vesicant Right Chest Wall [facility] - Positive culture of wound from February 2019 - IV abx - Unfortunately still with wound care and recurrent infection - ID and wound care following Deferred to the admitting service for management of the patient's other medical problems Physician Attestation: I have performed the full physical examination and reviewed the full history of this patient, as well as pertinent findings. I have created the compled impression and recommendations. I agree with the above dictation by IVAN Samaniego. This dictation has been written as a scribe. IVAN Samaniego
[2019-07-02] MEDS: AZTREONAM 2 GM in SODIUM CHLORIDE 0.9% 100 ML IVPB SCH ×2 (16:51→23:14)
[2019-07-02] MEDS: DAPTOmycin 500 MG in SODIUM CHLORIDE 0.9% 50 ML IVPB SCH (17:57)
[2019-07-02] MEDS: ACETAMINOPHEN TAB 325 MG TAB PO PRN (21:45)
--- NOTE | 2019-07-02 22:01 | PN ---
PROGRESS NOTE SUBJECTIVE: This patient is a 54-year-old white male with community-acquired pneumonia. The wound infection appears to be improving from a clinical standpoint. His vomiting has stopped. He was seen by naphthalene operator and extrusion machine operator as well as Dr. Merchant. He has neutropenic sepsis, right chest wall wounds, obstructive sleep apnea. Continue antibiotics, IV fluids. Oncology for treatment of T-cell lymphoma. Lungs are clear. CARDIOVASCULAR: S1, S2. HEMATOLOGY: Negative Homans. Please see further orders. MMODL / IJN: [id number] /
[2019-07-02] MEDS: ZOLPIDEM 5 MG TAB PO PRN (22:24)
--- NOTE | 2019-07-02 23:24 | P.PN ---
Subjective Progress Note Date: 07/02/19 54-year-old male that has a very complex medical history which began in December of this year. At that point in time the patient was feeling poorly was having fevers chills in a 30 pound weight loss. He was feeling very poorly overall was hospitalized at a local facility and then transferred to [facility]. 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 The patient has been initiated to chemotherapy. There was great difficulties because of significant psychosocial problems, eventually the family was able to come together and provide him with residence and transportation for his interventional chemotherapy. It is related the patient was cared for outside facility. Chemotherapy was given through the [facility] and unfortunately there was extravasation of the chemotherapy into the chest wall tissue around the buried port. He's been having ongoing difficulties of the site. He is following with the grinder hand in receiving his chemotherapy. She's also been following the wound healing Center reason receiving therapy and most recently negative pressure therapy to the right anterior chest wall extensive ulceration. He was doing relatively well but now presents hospital feeling weak and ill. Nausea and emesis fever and chills been occurring. With evidence the febrile neutropenia the consult was requested. 07/02/2019 He is feeling somewhat better today. He's having no further fever. Although still has significant neutropenia. He has some pain at the ulceration of the chest wall but is not steadily worsen usual. His appetite is improved and has tolerated advancing diet. Last evening he had a significant difficulty with the development of an extensive drug eruption after his cefepime and vancomycin had been given these were held Benadryl and steroid was given. The patient is now considerably better. Unclear which patient is a difficulty since he's had them both in the past. Objective - Vital Signs Vital signs: Vital Signs Temp 97.6 F 07/02/19 21:00 Pulse 88 07/02/19 21:00 Resp 20 07/02/19 21:00 BP 114/74 07/02/19 21:00 Pulse Ox 98 07/02/19 21:00 Intake & Output 07/02/19 07/02/19 07/03/19 06:59 18:59 06:59 Intake Total 1880 2480 1200 Output Total 500 100 Balance 1880 1980 1100 Intake: Intake, IV Titration 350 900 350 Amount DAPTOmycin 500 mg In 50 Sodium Chloride 0.9% 50 ml @ 100 mls/hr IVPB Q24H [facility] Rx#:[id number] Sodium Chloride 0.9% 1, 350 900 300 000 ml @ 75 mls/hr IV . [id number] [facility] Rx#:[id number] Oral 1530 1580 850 Output: Urine 500 Emesis 100 Other: Voiding Method Toilet Urinal # Voids 2 3 1 # Bowel Movements 1 - Exam HEENT: Anicteric, conjunctiva are pink and moist, nasal or oral mucosa are without lesion. The neck is supple without lymphadenopathy or thyromegaly. No oral thrush is noted. Lungs: good bilateral air entry, there are no significant crackles or wheezes, no bronchial sounds or egophony. Heart: Regular rate and rhythm with an audible S1-S2, no S3 or S4 noted. No significant murmur click or rub noted. Abdomen: Positive bowel sounds, soft and nontender, there is no palpable masses or organomegaly. Abdomen is without guarding or rebound. Extremities:Upper extremities reveal evidence of equal pulses, no lesions are seen, no petechiae or telangiectasia. The lower extremities Capillary refill was brisk.Reveal evidence of some bilateral lower extremity edema there is evidence of erythema that is present from the dorsum of the foot to just below the knee. It is not tender and appears to be somewhat petechial in nature Skin: Left chest shows no acute abnormalities. The upper and lower extremities without significant lesions. The right anterior chest wall shows evidence of the area of the removal of the Vjarzw-c-Wswa. With the local wound care there is no evidence of an extensive granulation however along the inferior aspect of the chest wall ulceration as per the nursing photography between approximately 5:00 is evidence of the tissue appears to be fat necrosis. The surrounding erythema has improved. The generalized skin eruption has improved significantly, there are no hives, blisters or ulcerations. Neuro:Awake and alert, oriented to person place and time. No gross focal sensory motor deficits noted. Musculoskeletal: Patient is ambulatory No acute joint effusions are noted. Lymph: No cervical, supraclavicular, axillary, epitrochlear, or inguinal lymphadenopathy was noted. - Labs CBC & Chem 7: 07/02/19 08:24 07/02/19 07:53 Labs: Abnormal Lab Results - Last 24 Hours (Table) 07/02/19 07/02/19 07/02/19 Range/Units 07:53 07:53 08:24 WBC 0.3 L* (3.8-10.6) k/uL Plt Count 81 L (150-450) k/uL Chloride 108 H (98-107) mmol/L BUN 8 L (9-20) mg/dL Glucose 133 H (74-99) mg/dL Plasma Lactic Acid Marcos 2.7 H* (0.7-2.0) mmol/L Microbiology - Last 24 Hours (Table) 06/30/19 19:34 Blood Culture - Preliminary Blood No Growth after 48 hours Laboratory Results WBC 0.3 k/uL (3.8-10.6) L* 07/02/19 08:24 RBC 5.17 m/uL (4.30-5.90) 07/02/19 08:24 Hgb 14.2 gm/dL (13.0-17.5) 07/02/19 08:24 Hct 42.8 % (39.0-53.0) 07/02/19 08:24 MCV 82.8 fL (80.0-100.0) 07/02/19 08:24 MCH 27.5 pg (25.0-35.0) 07/02/19 08:24 MCHC 33.2 g/dL (31.0-37.0) 07/02/19 08:24 RDW 14.1 % (11.5-15.5) 07/02/19 08:24 Plt Count 81 k/uL (150-450) L 07/02/19 08:24 Neutrophils # PHOTOENGRAVING PROOFER APPRENTICE 06/30/19 19:34 Differential Comment P 07/02/19 08:24 Manual Slide Review Performed 07/02/19 08:24 Poikilocytosis (manual Present 07/02/19 08:24 Anisocytosis Slight 06/30/19 19:34 Anisocytosis (manual) Present 07/02/19 08:24 PT 9.7 sec (9.0-12.0) 06/30/19 19:34 INR 0.9 (<1.2) 06/30/19 19:34 APTT 25.2 sec (22.0-30.0) 06/30/19 19:34 Sodium 142 mmol/L (137-145) 07/02/19 07:53 Potassium 3.7 mmol/L (3.5-5.1) 07/02/19 07:53 Chloride 108 mmol/L (98-107) H 07/02/19 07:53 Carbon Dioxide 23 mmol/L (22-30) 07/02/19 07:53 Anion Gap 11 mmol/L 07/02/19 07:53 BUN 8 mg/dL (9-20) L 07/02/19 07:53 Creatinine 0.89 mg/dL (0.66-1.25) 07/02/19 07:53 Est GFR (CKD-EPI)AfAm >90 (>60 ml/min/1.73 sqM) 07/02/19 07:53 Est GFR (CKD-EPI)NonAf >90 (>60 ml/min/1.73 sqM) 07/02/19 07:53 Glucose 133 mg/dL (74-99) H 07/02/19 07:53 Lactic Ac Sepsis Rflx Y 07/02/19 08:36 Plasma Lactic Acid Marcos 1.9 mmol/L (0.7-2.0) 07/02/19 12:18 Calcium 9.0 mg/dL (8.4-10.2) 07/02/19 07:53 Total Bilirubin 0.8 mg/dL (0.2-1.3) 07/02/19 07:53 AST 25 U/L (17-59) 07/02/19 07:53 ALT 32 U/L (21-72) 07/02/19 07:53 Alkaline Phosphatase 69 U/L (38-126) 07/02/19 07:53 Total Protein 6.5 g/dL (6.3-8.2) 07/02/19 07:53 Albumin 3.9 g/dL (3.5-5.0) 07/02/19 07:53 Urine Color Yellow 06/30/19 19:31 Urine Appearance Clear (Clear) 06/30/19 19:31 Urine pH 7.0 (5.0-8.0) 06/30/19 19:31 Ur Specific Hull 1.008 (1.001-1.035) 06/30/19 19:31 Urine Protein Negative (Negative) 06/30/19 19:31 Urine Glucose (UA) Negative (Negative) 06/30/19 19:31 Urine Ketones Negative (Negative) 06/30/19 19:31 Urine Blood Negative (Negative) 06/30/19 19:31 Urine Nitrite Negative (Negative) 06/30/19 19:31 Urine Bilirubin Negative (Negative) 06/30/19 19:31 Urine Urobilinogen <2.0 mg/dL (<2.0) 06/30/19 19:31 Ur Leukocyte Esterase Negative (Negative) 06/30/19 19:31 Influenza Type A RNA Not Detected (Not Detectd) 06/30/19 21:25 Influenza Type B (PCR) Not Detected (Not Detectd) 06/30/19 21:25 Microbiology 06/30/19 19:34 Blood Blood Culture - Preliminary No Growth after 48 hours Assessment and Plan (1) Neutropenic fever Current Visit: Yes Status: Acute Code(s): D70.9 - NEUTROPENIA, UNSPECIFIED; R50.81 - FEVER PRESENTING WITH CONDITIONS CLASSIFIED ELSEWHERE SNOMED Code(s): 555023729 (2) Extravasation of vesicant antineoplastic chemotherapy, subsequent encounter Narrative/Plan: 54-year-old male presents to Hospital for evaluation of fever and weakness and some nausea and emesis. He is not certain feels slightly better and the nausea and emesis have settled has been able to eat some clear liquids with no further difficulty. His appetite is improving and looks forward to an advancing diet. His fever has improved but still feels somewhat poorly. He does have leukopenia and thrombocytopenia related to the recent chemotherapy. He's been seen by his oncologist and given growth factors. Blood cultures are process and antibiotic therapy with cefepime and vancomycin have been initiated. Local wound care will be with thercecioney they can be changed daily Once discharged if he is feeling somewhat better we'll try to get back to the n egative pressure therapy system that seems to have been helping. Pain control is adequate He understands that once his diet has been improved A high protein intake as required. Chest x-rays reviewed potential for a new right lower lobe infiltrate will be monitored. 07/02/2019 the patient had a significant drug eruption overnight and is now feeling considerably better. Etiology is likely of antibiotic therapy however the G-CSF is also a possibility. He's had on the past. Will alter antibiotic therapy to Azactam and daptomycin until the patient's neutropenia resolves and he remains afebrile. Local wound care will continue with the therahoney which she is tolerating well. Current Visit: No Status: Acute Code(s): T80.810D - EXTRAVASATION OF VESICANT ANTINEOPLASTIC CHEMOTHERAPY, SUBS SNOMED Code(s): 297108998 (3) Lymphoma Current Visit: No Status: Acute Code(s): C85.90 - NON-HODGKIN LYMPHOMA, UNSPECIFIED, UNSPECIFIED SITE SNOMED Code(s): 422668526
[2019-07-03] MEDS: SODIUM CHLORIDE 0.9% 1,000 ML IV SCH ×2 (03:26→20:19)
[2019-07-03 07:47] LABS: HCT 41.8 % (39.0-53.0); HGB 14.1 gm/dL (13.0-17.5); MCH 27.8 pg (25.0-35.0); MCHC 33.7 g/dL (31.0-37.0); MCV 82.4 fL (80.0-100.0); RBC 5.07 m/uL (4.30-5.90); RDW 14.4 % (11.5-15.5)
[2019-07-03 08:02] LABS: ALT 34 U/L (21-72); AST 23 U/L (17-59); African American GFR (CKD) >90 (>60 ml/min/1.73 sqM); Albumin 3.7 g/dL (3.5-5.0); Alkaline Phosphatase 65 U/L (38-126); Anion Gap 12 mmol/L; Blood Urea Nitrogen 6 mg/dL (9-20); Calcium 8.3 mg/dL (8.4-10.2); Carbon Dioxide 21 mmol/L (22-30); Chloride 110 mmol/L (98-107); Glucose 89 mg/dL (74-99); Potassium 3.3 mmol/L (3.5-5.1); Sodium 143 mmol/L (137-145); Total Bilirubin 0.5 mg/dL (0.2-1.3); Total Protein 6.2 g/dL (6.3-8.2)
[2019-07-03 08:03] LABS: WBC 0.8 k/uL (3.8-10.6)
[2019-07-03 08:04] LABS: Platelet Count 85 k/uL (150-450)
[2019-07-03] MEDS: AZTREONAM 2 GM in SODIUM CHLORIDE 0.9% 100 ML IVPB SCH ×3 (08:40→23:37)
[2019-07-03] MEDS: FILGRASTIM-SNDZ 480 MCG/0.8 ML SYRINGE SQ SCH (08:41)
[2019-07-03] MEDS: PANTOPRAZOLE 40 MG TABLET PO SCH (08:42)
[2019-07-03] MEDS: HEPARIN SODIUM,PORCINE 5,000 UNIT/ML 1 ML VIAL SQ SCH ×2 (08:42→20:19)
[2019-07-03] MEDS: ACETAMINOPHEN TAB 325 MG TAB PO PRN ×2 (13:11→19:03)
[2019-07-03] MEDS: DAPTOmycin 500 MG in SODIUM CHLORIDE 0.9% 50 ML IVPB SCH (17:20)
[2019-07-03] MEDS: LORazepam 2 MG/ML INJ IV PRN (20:17)
[2019-07-03] MEDS: ZOLPIDEM 5 MG TAB PO PRN (21:57)
--- NOTE | 2019-07-04 00:44 | PN ---
PROGRESS NOTE 54-year-old white male, neutropenic fever, right chest wall infection with leukocytosis. Breathing is improving. Cardiovascular S1, S2. Lungs scattered rhonchi and wheeze. Integument: Right chest open wound, exudate. ASSESSMENT: Atypical chest wound infection due to pain and fever and community-acquired pneumonia. Continue with broad-spectrum antibiotics. Wound care of the chest. Possible discharge home in the next few days once cleared by Infectious Disease and Kitchen And Counter Worker. MMODL / IJN: [id number] /
[2019-07-04] MEDS: ACETAMINOPHEN TAB 325 MG TAB PO PRN ×3 (03:16→20:37)
[2019-07-04] MEDS: SODIUM CHLORIDE 0.9% 1,000 ML IV SCH ×2 (06:17→16:55)
[2019-07-04] MEDS: AZTREONAM 2 GM in SODIUM CHLORIDE 0.9% 100 ML IVPB SCH ×2 (08:28→14:58)
[2019-07-04] MEDS: PANTOPRAZOLE 40 MG TABLET PO SCH (08:28)
[2019-07-04] MEDS: HEPARIN SODIUM,PORCINE 5,000 UNIT/ML 1 ML VIAL SQ SCH ×2 (08:28→20:31)
[2019-07-04] MEDS: FILGRASTIM-SNDZ 480 MCG/0.8 ML SYRINGE SQ SCH (08:29)
[2019-07-04] MEDS: DAPTOmycin 500 MG in SODIUM CHLORIDE 0.9% 50 ML IVPB SCH (16:35)
[2019-07-04] MEDS: LORazepam 2 MG/ML INJ IV PRN (16:51)
--- NOTE | 2019-07-04 17:54 | PN ---
PROGRESS NOTE A 54-year-old male, had 30 pounds weight loss. His chemotherapy has been given to infuse a poor extravasation of chemo caused chest tissue extravasation and debridement with a large chest wound on the right side. He had a reaction to cefepime, vancomycin, switched to different antibiotics, which he is on, but now white count up to 0.80. Feels better. He is not vomiting or having diarrhea. CARDIOVASCULAR: S1, S2. Lungs show transmitted upper sounds, otherwise clear. Endocrine BMI is over 40. Hematology negative Homans'. White count is mentioned up to 0.8. Musculoskeletal he is ambulatory. IMPRESSION: 1. Neutropenic fever, improving. 2. Sterilization of antineoplastic chemotherapy. 3. He is on daptomycin IV antibiotics at this time. 4. Thrombocytopenia is stable. 5. Continue with Azactam and daptomycin until he is afebrile and neutropenic and then therahoney will be given to the wound. 6. Please see further order. 7. Lymphoma, non-Hodgkin's lymphoma appears improved. MMODL / IJN: [id number] /
[2019-07-04] MEDS: ZOLPIDEM 5 MG TAB PO PRN (20:37)
[2019-07-05] MEDS: AZTREONAM 2 GM in SODIUM CHLORIDE 0.9% 100 ML IVPB SCH ×3 (00:39→18:06)
[2019-07-05 07:53] LABS: ALT 29 U/L (21-72); AST 19 U/L (17-59); African American GFR (CKD) >90 (>60 ml/min/1.73 sqM); Albumin 3.3 g/dL (3.5-5.0); Alkaline Phosphatase 66 U/L (38-126); Anion Gap 10 mmol/L; Blood Urea Nitrogen 8 mg/dL (9-20); Calcium 8.4 mg/dL (8.4-10.2); Carbon Dioxide 25 mmol/L (22-30); Chloride 107 mmol/L (98-107); Glucose 93 mg/dL (74-99); HGB 13.5 gm/dL (13.0-17.5); MCHC 34.7 g/dL (31.0-37.0); MCV 80.8 fL (80.0-100.0); Mean Platelet Volume 6.8; Potassium 2.9 mmol/L (3.5-5.1); RBC 4.82 m/uL (4.30-5.90); RDW 14.6 % (11.5-15.5); Sodium 142 mmol/L (137-145); Total Bilirubin 0.3 mg/dL (0.2-1.3); Total Protein 5.6 g/dL (6.3-8.2); WBC 6.3 k/uL (3.8-10.6)
[2019-07-05 07:56] LABS: Platelet Count 128 k/uL (150-450)
[2019-07-05] MEDS: PANTOPRAZOLE 40 MG TABLET PO SCH (08:18)
[2019-07-05] MEDS: HEPARIN SODIUM,PORCINE 5,000 UNIT/ML 1 ML VIAL SQ SCH ×2 (08:18→20:54)
[2019-07-05] MEDS: SODIUM CHLORIDE 0.9% 1,000 ML IV SCH ×2 (08:18→23:17)
[2019-07-05] MEDS ORDERED: Potassium Replacement Protocol 1 EACH MISC MISCELLANE PRN (08:28)
[2019-07-05 08:44] LABS: Band Neutrophils % 41 %; Lymphocytes # (M) 0.63 k/uL (1.0-4.8); Metamyelocytes # (M) 0.13 k/uL (0); Metamyelocytes % 2 %; Monocytes # (M) 1.13 k/uL (0-1.0); Myelocytes # (M) 0.06 k/uL (0); Myelocytes % 1 %; Neutrophils % (M) 29 %; Nucleated Red Blood Cells 0 /100 WBC (0-0); Total Cells Counted 200
[2019-07-05 08:45] LABS: Toxic Granulation Present
[2019-07-05 08:46] LABS: Anisocytosis (M) Present; Poikilocytosis (M) Present
[2019-07-05] MEDS: POTASSIUM CHLORIDE ER 20 MEQ TAB.ER PO SCH ×5 (09:14→20:53)
[2019-07-05] MEDS: FILGRASTIM-SNDZ 480 MCG/0.8 ML SYRINGE SQ SCH (09:14)
[2019-07-05] MEDS: ACETAMINOPHEN TAB 325 MG TAB PO PRN (13:46)
--- NOTE | 2019-07-05 14:48 | P.PN ---
Subjective Progress Note Date: 07/05/19 Principal diagnosis: Neutropenic fever, thrombocytopenia, non-Hodgkin's T-cell lymphoma, pancytopenia This is a 54-year-old male with prior medical history of T-cell lymphoma status post chemotherapy complicated with neutropenic fever on broad-spectrum antibiotics with plan: Cephapirin, ID service following has some shortness present intermittently but overall stable denies any chest pain, some discomfort at the right thoracic wall and prior IV site covered with dressing 54-year-old male that has a very complex medical history which began in December of this year. At that point in time the patient was feeling poorly was having fevers chills in a 30 pound weight loss. He was feeling very poorly overall was hospitalized at a local facility and then transferred to [facility]. 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 The patient has been initiated to chemotherapy. There was great difficulties because of significant psychosocial problems, eventually the family was able to come together and provide him with residence and transportation for his interventional chemotherapy. It is related the patient was cared for outside facility. Chemotherapy was given through the [facility] and unfortunately there was extravasation of the chemotherapy into the chest wall tissue around the buried port. He's been having ongoing difficulties of the site. He is following with the general worker in receiving his chemotherapy. She's also been following the wound healing Center reason receiving therapy and most recently negative pressure therapy to the right anterior chest wall extensive ulceration. He was doing relatively well but now presents hospital feeling weak and ill. Nausea and emesis fever and chills been occurring. Objective - Vital Signs Vital signs: Vital Signs Temp 97.7 F 07/05/19 05:00 Pulse 102 H 07/05/19 05:00 Resp 20 07/05/19 05:00 BP 149/85 07/05/19 05:00 Pulse Ox 97 07/05/19 05:00 Intake & Output 07/04/19 07/05/19 07/05/19 18:59 06:59 18:59 Intake Total 100 650 Balance 100 650 Intake: Intake, IV Titration 100 100 Amount Aztreonam 2 gm In Sodium 100 100 Chloride 0.9% 100 ml @ 100 mls/hr IVPB Q8HR [facility] Rx#:[id number] Oral 550 Other: Voiding Method Toilet Toilet Toilet Urinal Urinal Urinal # Voids 2 2 # Bowel Movements 0 - Exam HEENT: Anicteric, conjunctiva are pink and moist, nasal or oral mucosa are wit hout lesion. The neck is supple without lymphadenopathy or thyromegaly. No oral thrush is noted. Lungs: good bilateral air entry, there are no significant crackles or wheezes, no bronchial sounds or egophony. Heart: Regular rate and rhythm with an audible S1-S2, no S3 or S4 noted. No significant murmur click or rub noted. Abdomen: Positive bowel sounds, soft and nontender, there is no palpable masses or organomegaly. Abdomen is without guarding or rebound. Extremities:Upper extremities reveal evidence of equal pulses, no lesions are seen, no petechiae or telangiectasia. The lower extremities Capillary refill was brisk.Reveal evidence of some bilateral lower extremity edema there is evidence of erythema that is present from the dorsum of the foot to just below the knee. It is not tender and appears to be somewhat petechial in nature Skin: Left chest shows no acute abnormalities. The upper and lower extremities without significant lesions. The right anterior chest wall shows evidence of the area of the removal of the Aprnhi-d-Ggel. With the local wound care there is no evidence of an extensive granulation however along the inferior aspect of the chest wall ulceration as per the nursing photography between approximately 5:00 is evidence of the tissue appears to be fat necrosis. The surrounding erythema has improved. The generalized skin eruption has improved significantly, there are no hives, blisters or ulcerations. Neuro:Awake and alert, oriented to person place and time. No gross focal sensory motor deficits noted. Musculoskeletal: Patient is ambulatory No acute joint effusions are noted. Lymph: No cervical, supraclavicular, axillary, epitrochlear, or inguinal lymph adenopathy was noted. - Labs CBC & Chem 7: 07/05/19 07:08 07/05/19 07:08 Labs: Abnormal Lab Results - Last 24 Hours (Table) 07/05/19 07/05/19 Range/Units 07:08 07:08 Plt Count 128 L D (150-450) k/uL Lymphocytes # (Manual) 0.63 L (1.0-4.8) k/uL Monocytes # (Manual) 1.13 H (0-1.0) k/uL Metamyelocytes # (Man) 0.13 H (0) k/uL Myelocytes # (Manual) 0.06 H (0) k/uL Potassium 2.9 L (3.5-5.1) mmol/L BUN 8 L (9-20) mg/dL Total Protein 5.6 L (6.3-8.2) g/dL Albumin 3.3 L (3.5-5.0) g/dL Microbiology - Last 24 Hours (Table) 06/30/19 19:34 Blood Culture - Preliminary Blood No Growth after 96 hours Assessment and Plan Assessment: Febrile neutropenia Pancytopenia T-cell lymphoma Shortness of breath due to lymphoma and above over all stable with stable oxygenation Right chest wall wound Plan: Continue antibiotic Increase activity as tolerated Monitor white cell count and platelets and hemoglobin closely Further recommendations pending plan of care as per clinical response of the patient Time with Patient: Greater than 30
[2019-07-05 15:42] LABS: African American GFR (CKD) >90 (>60 ml/min/1.73 sqM); Anion Gap 9 mmol/L; Blood Urea Nitrogen 8 mg/dL (9-20); Calcium 8.6 mg/dL (8.4-10.2); Carbon Dioxide 26 mmol/L (22-30); Chloride 107 mmol/L (98-107); Glucose 102 mg/dL (74-99); Magnesium 1.5 mg/dL (1.6-2.3); Potassium 3.3 mmol/L (3.5-5.1); Sodium 142 mmol/L (137-145)
[2019-07-05] MEDS: DAPTOmycin 500 MG in SODIUM CHLORIDE 0.9% 50 ML IVPB SCH (16:09)
--- NOTE | 2019-07-05 16:16 | P.PN ---
Subjective Progress Note Date: 07/05/19 Principal diagnosis: neutrpoenic fever WBC is recovering today Objective - Vital Signs Vital signs: Vital Signs Temp 97.7 F 07/05/19 05:00 Pulse 102 H 07/05/19 05:00 Resp 20 07/05/19 05:00 BP 149/85 07/05/19 05:00 Pulse Ox 97 07/05/19 05:00 Intake & Output 07/04/19 07/05/19 07/05/19 18:59 06:59 18:59 Intake Total 100 650 Balance 100 650 Intake: Intake, IV Titration 100 100 Amount Aztreonam 2 gm In Sodium 100 100 Chloride 0.9% 100 ml @ 100 mls/hr IVPB Q8HR [facility] Rx#:[id number] Oral 550 Other: Voiding Method Toilet Toilet Toilet Urinal Urinal Urinal # Voids 2 2 # Bowel Movements 0 - Exam General: Alert and Oriented x3, No Acute Distress Head: Normocytic, Atraumatic Neck: Supple Mouth: No Lesions, No Thrush Eyes: Non-sclerotic No Palpable cervical, supraclavicular, axillary adenopathy Heart: Regular Rate, Regular Rhythm Lungs: Clear to Ausculations, No Wheeze, No Rhonchi, Diminishe bilateral lower lobes, No increased respiratory effort noted Abdomen: Soft, Non-Distended, Non-Tended, BSx4 Extremities: No Edema, Equal Strength Neurological: No Focal Defects: No sensory or motor deficits noted Psych: Calm and cooperative Chest wall infection - Labs CBC & Chem 7: 07/05/19 07:08 07/05/19 15:03 Labs: Abnormal Lab Results - Last 24 Hours (Table) 07/05/19 07/05/19 Range/Units 07:08 07:08 Plt Count 128 L D (150-450) k/uL Lymphocytes # (Manual) 0.63 L (1.0-4.8) k/uL Monocytes # (Manual) 1.13 H (0-1.0) k/uL Metamyelocytes # (Man) 0.13 H (0) k/uL Myelocytes # (Manual) 0.06 H (0) k/uL Potassium 2.9 L (3.5-5.1) mmol/L BUN 8 L (9-20) mg/dL Total Protein 5.6 L (6.3-8.2) g/dL Albumin 3.3 L (3.5-5.0) g/dL Microbiology - Last 24 Hours (Table) 06/30/19 19:34 Blood Culture - Preliminary Blood No Growth after 96 hours Assessment and Plan Plan: 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 - status Post CHP Adentris cycle one Pancytopeniadue to underlying non-Hodgkin's lymphoma. Recovering - WBC improved today, another dose zarxio and re-evaluate in am - Thrombocytopenia - improving - Will also plan for Neulasta after treatments with chemotherapy moving for randle. Febrile Neutropenia: Improved - Will add Zarxio, did not receive Neulasta after last cycle. - ID following - antibiotics - PLan to Add neulast to future Chemo Extravasation of Vesicant Right Chest Wall [facility] - Positive culture of wound from February 2019 - IV abx - Unfortunately still with wound care and recurrent infection - ID and wound care following Hypokalemia: - Supped per primary team - Recheck and check Mag Deferred to the admitting service for management of the patient's other medical problems Followup Dr. Zafar after discharge for next treatment plan after clearance from ID
[2019-07-05] MEDS: ZOLPIDEM 5 MG TAB PO PRN (21:33)
--- NOTE | 2019-07-05 23:05 | P.PN ---
Subjective Progress Note Date: 07/05/19 54-year-old male that has a very complex medical history which began in December of this year. At that point in time the patient was feeling poorly was having fevers chills in a 30 pound weight loss. He was feeling very poorly overall was hospitalized at a local facility and then transferred to [facility]. 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 The patient has been initiated to chemotherapy. There was great difficulties because of significant psychosocial problems, eventually the family was able to come together and provide him with residence and transportation for his interventional chemotherapy. It is related the patient was cared for outside facility. Chemotherapy was given through the [id number] and unfortunately there was extravasation of the chemotherapy into the chest wall tissue around the buried port. He's been having ongoing difficulties of the site. He is following with the front worker in receiving his chemotherapy. She's also been following the wound healing Center reason receiving therapy and most recently negative pressure therapy to the right anterior chest wall extensive ulceration. He was doing relatively well but now presents hospital feeling weak and ill. Nausea and emesis fever and chills been occurring. With evidence the febrile neutropenia the consult was requested. 07/02/2019 He is feeling somewhat better today. He's having no further fever. Although still has significant neutropenia. He has some pain at the ulceration of the chest wall but is not steadily worsen usual. His appetite is improved and has tolerated advancing diet. Last evening he had a significant difficulty with the development of an extensive drug eruption after his cefepime and vancomycin had been given these were held Benadryl and steroid was given. The patient is now considerably better. Unclear which patient is a difficulty since he's had them both in the past. 07/05/2019 the patient has been showing some marked improvement apparently last evening when receiving his Azactam therapy. He again became pruritic on his back in the pruritic rash was resolved quickly with the topical skin moisturizer that was applied. He is feeling better today. He has no fevers or chills. His leukopenia has resolved. [place] to going home. Objective - Vital Signs Vital signs: Vital Signs Temp 98.5 F 07/05/19 13:00 Pulse 99 07/05/19 13:00 Resp 14 07/05/19 13:00 BP 120/66 07/05/19 13:00 Pulse Ox 97 07/05/19 13:00 Intake & Output 07/05/19 07/05/19 07/06/19 06:59 18:59 06:59 Intake Total 650 Balance 650 Intake: Intake, IV Titration 100 Amount Aztreonam 2 gm In Sodium 100 Chloride 0.9% 100 ml @ 100 mls/hr IVPB Q8HR [facility] Rx#:[id number] Oral 550 Other: Voiding Method Toilet Toilet Toilet Urinal Urinal Urinal # Voids 2 2 0 # Bowel Movements 0 0 - Exam HEENT: Anicteric, conjunctiva are pink and moist, nasal or oral mucosa are with out lesion. The neck is supple without lymphadenopathy or thyromegaly. No oral thrush is noted. Lungs: good bilateral air entry, there are no significant crackles or wheezes, no bronchial sounds or egophony. Heart: Regular rate and rhythm with an audible S1-S2, no S3 or S4 noted. No significant murmur click or rub noted. Abdomen: Positive bowel sounds, soft and nontender, there is no palpable masses or organomegaly. Abdomen is without guarding or rebound. Extremities:Upper extremities reveal evidence of equal pulses, no lesions are seen, no petechiae or telangiectasia. The lower extremities Capillary refill was brisk.Reveal evidence of some bilateral lower extremity edema there is evidence of erythema that is present from the dorsum of the foot to just below the knee. It is not tender and appears to be somewhat petechial in nature Skin: Left chest shows no acute abnormalities. The upper and lower extremities without significant lesions. The right anterior chest wall shows evidence of the area of the removal of the [id number]. With the local wound care there is no evidence of an extensive granulation however along the inferior aspect of the chest wall ulceration as per the nursing photography between approximately 5:00 is evidence of the tissue appears to be fat necrosis. The surrounding erythema has improved. The generalized skin eruption has improved significantly, there are no hives, blisters or ulcerations. Neuro:Awake and alert, oriented to person place and time. No gross focal sensory motor deficits noted. Musculoskeletal: Patient is ambulatory No acute joint effusions are noted. Lymph: No cervical, supraclavicular, axillary, epitrochlear, or inguinal lympha denopathy was noted. - Labs CBC & Chem 7: 07/05/19 07:08 07/05/19 15:03 Labs: Abnormal Lab Results - Last 24 Hours (Table) 07/05/19 07/05/19 07/05/19 Range/Units 07:08 07:08 15:03 Plt Count 128 L D (150-450) k/uL Lymphocytes # (Manual) 0.63 L (1.0-4.8) k/uL Monocytes # (Manual) 1.13 H (0-1.0) k/uL Metamyelocytes # (Man) 0.13 H (0) k/uL Myelocytes # (Manual) 0.06 H (0) k/uL Potassium 2.9 L 3.3 L (3.5-5.1) mmol/L BUN 8 L 8 L (9-20) mg/dL Glucose 102 H (74-99) mg/dL Magnesium 1.5 L (1.6-2.3) mg/dL Total Protein 5.6 L (6.3-8.2) g/dL Albumin 3.3 L (3.5-5.0) g/dL Microbiology - Last 24 Hours (Table) 06/30/19 19:34 Blood Culture - Preliminary Blood No Growth after 120 hours Laboratory Results WBC 6.3 k/uL (3.8-10.6) 07/05/19 07:08 RBC 4.82 m/uL (4.30-5.90) 07/05/19 07:08 Hgb 13.5 gm/dL (13.0-17.5) 07/05/19 07:08 Hct 39.0 % (39.0-53.0) 07/05/19 07:08 MCV 80.8 fL (80.0-100.0) 07/05/19 07:08 MCH 28.0 pg (25.0-35.0) 07/05/19 07:08 MCHC 34.7 g/dL (31.0-37.0) 07/05/19 07:08 RDW 14.6 % (11.5-15.5) 07/05/19 07:08 Plt Count 128 k/uL (150-450) L D 07/05/19 07:08 Neutrophils % (Manual) 29 % 07/05/19 07:08 Band Neutrophils % 41 % 07/05/19 07:08 Lymphocytes % (Manual) 10 % 07/05/19 07:08 Monocytes % (Manual) 18 % 07/05/19 07:08 Metamyelocytes % 2 % 07/05/19 07:08 Myelocytes % 1 % 07/05/19 07:08 Neutrophils # [employer] [employer] 07/03/19 07:26 Neutrophils # (Manual) 4.40 k/uL (1.3-7.7) 07/05/19 07:08 Lymphocytes # (Manual) 0.63 k/uL (1.0-4.8) L 07/05/19 07:08 Monocytes # (Manual) 1.13 k/uL (0-1.0) H 07/05/19 07:08 Metamyelocytes # (Man) 0.13 k/uL (0) H 07/05/19 07:08 Myelocytes # (Manual) 0.06 k/uL (0) H 07/05/19 07:08 Nucleated RBCs 0 /100 WBC (0-0) 07/05/19 07:08 Differential Comment 07/03/19 07:26 Manual Slide Review Performed 07/03/19 07:26 Toxic Granulation Present 07/05/19 07:08 Poikilocytosis (manual Present 07/05/19 07:08 Anisocytosis Slight 06/30/19 19:34 Anisocytosis (manual) Present 07/05/19 07:08 PT 9.7 sec (9.0-12.0) 06/30/19 19:34 INR 0.9 (<1.2) 06/30/19 19:34 APTT 25.2 sec (22.0-30.0) 06/30/19 19:34 Sodium 142 mmol/L (137-145) 07/05/19 15:03 Potassium 3.3 mmol/L (3.5-5.1) L 07/05/19 15:03 Chloride 107 mmol/L (98-107) 07/05/19 15:03 Carbon Dioxide 26 mmol/L (22-30) 07/05/19 15:03 Anion Gap 9 mmol/L 07/05/19 15:03 BUN 8 mg/dL (9-20) L 07/05/19 15:03 Creatinine 0.76 mg/dL (0.66-1.25) 07/05/19 15:03 Est GFR (CKD-EPI)AfAm >90 (>60 ml/min/1.73 sqM) 07/05/19 15:03 Est GFR (CKD-EPI)NonAf >90 (>60 ml/min/1.73 sqM) 07/05/19 15:03 Glucose 102 mg/dL (74-99) H 07/05/19 15:03 Lactic Ac Sepsis Rflx Y 07/02/19 08:36 Plasma Lactic Acid Marcos 1.9 mmol/L (0.7-2.0) 07/02/19 12:18 Calcium 8.6 mg/dL (8.4-10.2) 07/05/19 15:03 Magnesium 1.5 mg/dL (1.6-2.3) L 07/05/19 15:03 Total Bilirubin 0.3 mg/dL (0.2-1.3) 07/05/19 07:08 AST 19 U/L (17-59) 07/05/19 07:08 ALT 29 U/L (21-72) 07/05/19 07:08 Alkaline Phosphatase 66 U/L (38-126) 07/05/19 07:08 Total Protein 5.6 g/dL (6.3-8.2) L 07/05/19 07:08 Albumin 3.3 g/dL (3.5-5.0) L 07/05/19 07:08 Urine Color Yellow 06/30/19 19:31 Urine Appearance Clear (Clear) 06/30/19 19:31 Urine pH 7.0 (5.0-8.0) 06/30/19 19:31 Ur Specific [place] 1.008 (1.001-1.035) 06/30/19 19:31 Urine Protein Negative (Negative) 06/30/19 19:31 Urine Glucose (UA) Negative (Negative) 06/30/19 19:31 Urine Ketones Negative (Negative) 06/30/19 19:31 Urine Blood Negative (Negative) 06/30/19 19:31 Urine Nitrite Negative (Negative) 06/30/19 19:31 Urine Bilirubin Negative (Negative) 06/30/19 19:31 Urine Urobilinogen <2.0 mg/dL (<2.0) 06/30/19 19:31 Ur Leukocyte Esterase Negative (Negative) 06/30/19 19:31 Influenza Type A RNA Not Detected (Not Detectd) 06/30/19 21:25 Influenza Type B (PCR) Not Detected (Not Detectd) 06/30/19 21:25 Microbiology 06/30/19 19:34 Blood Blood Culture - Preliminary No Growth after 120 hours Assessment and Plan (1) Neutropenic fever Current Visit: Yes Status: Acute Code(s): D70.9 - NEUTROPENIA, UNSPECIFIED; R50.81 - FEVER PRESENTING WITH CONDITIONS CLASSIFIED ELSEWHERE SNOMED Code(s): 768220100 (2) Extravasation of vesicant antineoplastic chemotherapy, subsequent encounter Narrative/Plan: 54-year-old male presents to Hospital for evaluation of fever and weakness and some nausea and emesis. He is not certain feels slightly better and the nausea and emesis have settled has been able to eat some clear liquids with no further difficulty. His appetite is improving and looks forward to an advancing diet. His fever has improved but still feels somewhat poorly. He does have leukopenia and thrombocytopenia related to the recent chemotherapy. He's been seen by his oncologist and given growth factors. Blood cultures are process and antibiotic therapy with cefepime and vancomycin have been initiated. Local wound care will be with therahoney they can be changed daily Once discharged if he is feeling somewhat better we'll try to get back to the negative pressure therapy system that seems to have been helping. Pain control is adequate He understands that once his diet has been improved A high protein intake as required. Chest x-rays reviewed potential for a new right lower lobe infiltrate will be monitored. 07/02/2019 the patient had a significant drug eruption overnight and is now feeling considerably better. Etiology is likely of antibiotic therapy however the G-CSF is also a possibility. He's had on the past. Will alter antibiotic therapy to Azactam and daptomycin until the patient's neutropenia resolves and he remains afebrile. Local wound care will continue with the therahoney which she is tolerating well. 07/05/2019 patient is now showing some further improvement. His leukopenia has resolved. White count is over 6. No fevers or chills. Generally is feeling better but had some further difficulties with some rash last evening. The patient was transitioned to antibiotic therapy that include Azactam and daptom ycin. We will be highly unusual for him to have rash from Azactam. However is receiving G-CSF which certainly can cause rash and even neutrophilic infiltrating rashes. Fortunately is feeling somewhat better today. His leukopenia is resolved. Antibiotic therapy is completed. Likely discharge home in the morning. Would not need further antibiotic therapy. If he has ongoing rashes may need dermatological evaluation and biopsy. Current Visit: No Status: Acute Code(s): T80.810D - EXTRAVASATION OF VESICANT ANTINEOPLASTIC CHEMOTHERAPY, SUBS SNOMED Code(s): 636850404 (3) Lymphoma Current Visit: No Status: Acute Code(s): C85.90 - NON-HODGKIN LYMPHOMA, UNSPECIFIED, UNSPECIFIED SITE SNOMED Code(s): 519297871
--- NOTE | 2019-07-05 23:12 | PN ---
PROGRESS NOTE Neutropenic fever, right chest wall wound infection, community-acquired pneumonia. Nausea, vomiting resolved. CARDIOVASCULAR: S1, S2. LUNGS: Clear. GI: Soft. RIGHT CHEST WOUND: Improved. ASSESSMENT: 1. Neutropenic fever. 2. Right chest wound. 3. Community-acquired pneumonia. Continue current treatments, IV antibiotics. He has a rash, diffuse chest. Antibiotics will be withheld until Dr. Merchant re-evaluates for infection. Treat with IV Solu-Medrol and Benadryl for drug rash at this time. MMODL / IJN: [id number] /
[2019-07-06 05:27] VITALS: BP 137/76; PULSE 96; RESP 18; TEMP 97.9
[2019-07-06] MEDS: HEPARIN SODIUM,PORCINE 5,000 UNIT/ML 1 ML VIAL SQ SCH ×2 (08:10→08:11)
[2019-07-06] MEDS: FILGRASTIM-SNDZ 480 MCG/0.8 ML SYRINGE SQ SCH (08:10)
[2019-07-06] MEDS: PANTOPRAZOLE 40 MG TABLET PO SCH (08:10)
[2019-07-06] MEDS: SODIUM CHLORIDE 0.9% 1,000 ML IV SCH (08:10)
[2019-07-06] MEDS: ACETAMINOPHEN TAB 325 MG TAB PO PRN (08:14)
[2019-07-06 10:52] LABS: HCT 40.1 % (39.0-53.0); MCH 27.9 pg (25.0-35.0); MCHC 34.9 g/dL (31.0-37.0); Platelet Count 210 k/uL (150-450); RBC 5.02 m/uL (4.30-5.90); RDW 14.5 % (11.5-15.5)
[2019-07-06 11:57] LABS: Band Neutrophils % 18 %; Lymphocytes # (M) 2.08 k/uL (1.0-4.8); Monocytes # (M) 0.96 k/uL (0-1.0); Neutrophils % (M) 63 %; Nucleated Red Blood Cells 0 /100 WBC (0-0); Total Cells Counted 100
[2019-07-06 12:07] LABS: ALT 29 U/L (21-72); AST 28 U/L (17-59); African American GFR (CKD) >90 (>60 ml/min/1.73 sqM); Albumin 3.8 g/dL (3.5-5.0); Alkaline Phosphatase 97 U/L (38-126); Anion Gap 12 mmol/L; Blood Urea Nitrogen 7 mg/dL (9-20); Carbon Dioxide 23 mmol/L (22-30); Chloride 107 mmol/L (98-107); Glucose 129 mg/dL (74-99); Magnesium 1.5 mg/dL (1.6-2.3); Potassium 3.4 mmol/L (3.5-5.1); Sodium 142 mmol/L (137-145); Total Bilirubin 0.3 mg/dL (0.2-1.3); Total Protein 6.4 g/dL (6.3-8.2)
--- NOTE | 2019-07-06 16:14 | P.PN ---
Subjective Progress Note Date: 07/06/19 Principal diagnosis: neutrpoenic fever Afebrile, WBC improved Objective - Vital Signs Vital signs: Vital Signs Temp 97.9 F 07/06/19 05:00 Pulse 96 07/06/19 05:00 Resp 18 07/06/19 05:00 BP 137/76 07/06/19 05:00 Pulse Ox 95 07/06/19 05:00 Intake & Output 07/05/19 07/06/19 07/06/19 18:59 06:59 18:59 Intake Total 1250 Balance 1250 Intake: Oral 1250 Other: Voiding Method Toilet Toilet Urinal Urinal # Voids 2 2 # Bowel Movements 0 - Exam General: Alert and Oriented x3, No Acute Distress Head: Normocytic, Atraumatic Neck: Supple Mouth: No Lesions, No Thrush Eyes: Non-sclerotic No Palpable cervical, supraclavicular, axillary adenopathy Heart: Regular Rate, Regular Rhythm Lungs: Clear to Ausculations, No Wheeze, No Rhonchi, Diminishe bilateral lower lobes, No increased respiratory effort noted Abdomen: Soft, Non-Distended, Non-Tended, BSx4 Extremities: No Edema, Equal Strength Neurological: No Focal Defects: No sensory or motor deficits noted Psych: Calm and cooperative Chest wall infection - Labs CBC & Chem 7: 07/06/19 10:28 07/06/19 10:28 Labs: Abnormal Lab Results - Last 24 Hours (Table) 07/06/19 07/06/19 Range/Units 10:28 10:28 WBC 16.0 H (3.8-10.6) k/uL Neutrophils # (Manual) 12.90 H (1.3-7.7) k/uL Potassium 3.4 L (3.5-5.1) mmol/L BUN 7 L (9-20) mg/dL Glucose 129 H (74-99) mg/dL Magnesium 1.5 L (1.6-2.3) mg/dL Microbiology - Last 24 Hours (Table) 06/30/19 19:34 Blood Culture - Preliminary Blood No Growth after 120 hours Assessment and Plan Plan: 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 - status Post CHP Adentris cycle one Pancytopeniadue to underlying non-Hodgkin's lymphoma. Recovering - WBC improved today, another dose zarxio and re-evaluate in am - Thrombocytopenia - improving - Will also plan for Neulasta after treatments with chemotherapy moving forward. Febrile Neutropenia: Improved - Will add Zarxio, did not receive Neulasta after last cycle. - ID following - antibiotics - PLan to Add neulast to future Chemo Extravasation of Vesicant Right Chest Wall [facility] - Positive culture of wound from February 2019 - IV abx - Unfortunately still with wound care and recurrent infection - ID and wound care following Hypokalemia: - Supped per primary team - Recheck and check Mag Deferred to the admitting service for management of the patient's other medical problems Followup Dr. Zafar after discharge for next treatment plan after clearance from ID
--- NOTE | 2019-07-06 19:42 | P.PN ---
Subjective Progress Note Date: 07/06/19 Principal diagnosis: Neutropenic fever, thrombocytopenia, non-Hodgkin's T-cell lymphoma, pancytopenia 07/06/2019, patient seen and evaluated examined overall remains unchanged som ent is being planned for discharge later on today would recommend a follow-up on outpatient basis This is a 54-year-old male with prior medical history of T-cell lymphoma status post chemotherapy complicated with neutropenic fever on broad-spectrum antibiotics with plan: Cephapirin, ID service following has some shortness present intermittently but overall stable denies any chest pain, some discomfort at the right thoracic wall and prior IV site covered with dressing 54-year-old male that has a very complex medical history which began in December of this year. At that point in time the patient was feeling poorly was having fevers chills in a 30 pound weight loss. He was feeling very poorly overall was hospitalized at a local facility and then transferred to [facility]. 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 The patient has been initiated to chemotherapy. There was great difficulties because of significant psychosocial problems, eventually the family was able to come together and provide him with residence and transportation for his interventional chemotherapy. It is related the patient was cared for outside facility. Chemotherapy was given through the [id number] and unfortunately there was extravasation of the chemotherapy into the chest wall tissue around the buried port. He's been having ongoing difficulties of the site. He is following with the technical support professional in receiving his chemotherapy. She's also been following the wound healing Ce nter reason receiving therapy and most recently negative pressure therapy to the right anterior chest wall extensive ulceration. He was doing relatively well but now presents hospital feeling weak and ill. Nausea and emesis fever and chills been occurring. Objective - Vital Signs Vital signs: Vital Signs Temp 97.9 F 07/06/19 05:00 Pulse 96 07/06/19 05:00 Resp 18 07/06/19 05:00 BP 137/76 07/06/19 05:00 Pulse Ox 95 07/06/19 05:00 Intake & Output 07/06/19 07/06/19 07/07/19 06:59 18:59 06:59 Intake Total 1250 Balance 1250 Intake: Oral 1250 Other: Voiding Method Toilet Urinal # Voids 2 # Bowel Movements 0 - Exam HEENT: Anicteric, conjunctiva are pink and moist, nasal or oral mucosa are without lesion. The neck is supple without lymphadenopathy or thyromegaly. No oral thrush is noted. Lungs: good bilateral air entry, there are no significant crackles or wheezes, no bronchial sounds or egophony. Heart: Regular rate and rhythm with an audible S1-S2, no S3 or S4 noted. No significant murmur click or rub noted. Abdomen: Positive bowel sounds, soft and nontender, there is no palpable masses or organomegaly. Abdomen is without guarding or rebound. Extremities:Upper extremities reveal evidence of equal pulses, no lesions are seen, no petechiae or telangiectasia. The lower extremities Capillary refill was brisk.Reveal evidence of some bilateral lower extremity edema there is evidence of erythema that is present from the dorsum of the foot to just below the knee. It is not tender and appears to be somewhat petechial in nature Skin: Left chest shows no acute abnormalities. The upper and lower extremities without significant lesions. The right anterior chest wall shows evidence of the area of the removal of the [id number]. With the local wound care there is no evidence of an extensive granulation however along the inferior aspect of the chest wall ulceration as per the nursing photography between approximately 5:00 is evidence of the tissue appears to be fat necrosis. The surrounding erythema has improved. The generalized skin eruption has improved significantly, there are no hives, blisters or ulcerations. Neuro:Awake and alert, oriented to person place and time. No gross focal sensory motor deficits noted. Musculoskeletal: Patient is ambulatory No acute joint effusions are noted. Lymph: No cervical, supraclavicular, axillary, epitrochlear, or inguinal lymphadenopathy was noted. - Labs CBC & Chem 7: 07/06/19 10:28 07/06/19 10:28 Labs: Abnormal Lab Results - Last 24 Hours (Table) 07/06/19 07/06/19 Range/Units 10:28 10:28 WBC 16.0 H (3.8-10.6) k/uL Neutrophils # (Manual) 12.90 H (1.3-7.7) k/uL Potassium 3.4 L (3.5-5.1) mmol/L BUN 7 L (9-20) mg/dL Glucose 129 H (74-99) mg/dL Magnesium 1.5 L (1.6-2.3) mg/dL Microbiology - Last 24 Hours (Table) 06/30/19 19:34 Blood Culture - Preliminary Blood No Growth after 120 hours Assessment and Plan Assessment: Febrile neutropenia Pancytopenia T-cell lymphoma Shortness of breath due to lymphoma and above over all stable with stable oxygen ation Right chest wall wound Plan: Continue antibiotic Agree with discharge planning Increase activity as tolerated Monitor white cell count and platelets and hemoglobin closely Further recommendations pending plan of care as per clinical response of the patient Time with Patient: Greater than 30
== END 2019-07-06 12:51 | disposition home health service (06) | DRG 808 ==
LOC: EC 18:53 → 3NMEDONC 20:56 → 4MS4W 07-04 15:06
PROVIDERS: ADMIT Family Medicine; ATTEND Family Medicine
DX: D70.3 Neutropenia due to infection (principal); J18.9 Pneumonia, unspecified organism; L03.313 Cellulitis of chest wall; C84.40 Peripheral T-cell lymphoma, not elsewhere classified, unspecified site; E87.2 Acidosis; F31.30 Bipolar disorder, current episode depressed, mild or moderate severity, unspecified; T80.810A Extravasation of vesicant antineoplastic chemotherapy, initial encounter; L27.0 Generalized skin eruption due to drugs and medicaments taken internally; F17.210 Nicotine dependence, cigarettes, uncomplicated; G47.33 Obstructive sleep apnea (adult) (pediatric); J45.909 Unspecified asthma, uncomplicated; K21.9 Gastro-esophageal reflux disease without esophagitis; N13.9 Obstructive and reflux uropathy, unspecified; T45.1X5A Adverse effect of antineoplastic and immunosuppressive drugs, initial encounter; Z79.899 Other long term (current) drug therapy; Z81.8 Family history of other mental and behavioral disorders; Z86.14 Personal history of Methicillin resistant Staphylococcus aureus infection; Z60.2 Problems related to living alone; Z91.040 Latex allergy status; E66.9 Obesity, unspecified; Z68.35 Body mass index [BMI] 35.0-35.9, adult; D69.59 Other secondary thrombocytopenia; R50.81 Fever presenting with conditions classified elsewhere
CPT/HCPCS: 36415; 71046; 74019; 80048; 80053; 81003; 83605; 83735; 85025; 85610; 85730; 87040; 87502; 93005; 96361; 96365; 96375; 99285

== ENCOUNTER 2019-07-17 14:05 | Emergency (ER) | payer OTHER ==
[2019-07-17 14:12] VITALS: RESP 18
--- NOTE | 2019-07-17 14:19 | ED ---
Nausea/Vomiting/Diarrhea HPI - General Chief complaint: Nausea/Vomiting/Diarrhea Stated complaint: NVD Time Seen by Provider: 07/17/19 14:05 Source: patient, EMS, RN notes reviewed Mode of arrival: EMS Limitations: no limitations - History of Present Illness Initial comments: This is a 54-year-old male with a history of non-Hodgkin's lymphoma who had his last chemotherapy 4 days ago who presents with complaints of 2 days of nausea vomiting and he started developing diarrhea last night. Does complain feeling weak somewhat lightheaded. He denies any overt fevers chills sweats or chest pain. He was brought in by EMS. He has no other modifying factors reports this time. MD complaint: nausea, vomiting, diarrhea - Related Data Home Medications Medication Instructions Recorded Confirmed Collagenase [Santyl] 1 applic TOPICAL DAILY 06/30/19 07/17/19 Acetaminophen-Codeine 300-30mg 1 tab PO HS 07/17/19 07/17/19 [Tylenol w/codeine #3] Previous Rx's Medication Instructions Recorded Acetaminophen Tab [Tylenol Tab] 650 mg PO Q4H PRN #30 tablet 06/08/19 Pantoprazole [Protonix] 40 mg PO AC-BRKFST #30 tablet. 06/08/19 Allergies Allergy/AdvReac Type Severity Reaction Status Date / Time latex Allergy Rash/Hives Verified 06/30/19 22:05 ragweed pollen Allergy Unknown Verified 06/30/19 22:05 Review of Systems ROS Statement: Those systems with pertinent positive or pertinent negative responses have been documented in the HPI. ROS Other: All systems not noted in ROS Statement are negative. Past Medical History Past Medical History: Asthma, Cancer, GERD/Reflux Additional Past Medical History / Comment(s): Non hodgkins lymphoma. States current anti bx use for port a cath infection. Has had 2 rounds of chemo, last one february or march 2019 History of Any Multi-Drug Resistant Organisms: MRSA Date of last positivie culture/infection: 06/03/19 MDRO Source:: chest wall Past Surgical History: No Surgical Hx Reported Additional Past Surgical History / Comment(s): Colonoscopy, lymph node biopsy. right chest port a cath Past Anesthesia/Blood Transfusion Reactions: No Reported Reaction Additional Past Anesthesia/Blood Transfusion Reaction / Comment(s): Pt has received blood in past without reaction. Past Psychological History: Bipolar, Depression Smoking Status: Current every day smoker Past Alcohol Use History: Daily Past Drug Use History: Marijuana - Past Family History Father Family Medical History: No Reported History Additional Family Medical History / Comment(s): Father is healthy and is 82 yrs old. Mother Family Medical History: No Reported History Additional Family Medical History / Comment(s): Mother from dementia. General Exam - General Exam Comments Initial Comments: This is a well-developed well-nourished awake alert oriented times 3 male Limitations: no limitations General appearance: alert, anxious Head exam: Present: atraumatic, normocephalic, normal inspection Eye exam: Present: normal appearance, PERRL, EOMI. Absent: scleral icterus, conjunctival injection, periorbital swelling ENT exam: Present: mucous membranes dry Neck exam: Present: normal inspection. Absent: tenderness, meningismus, lymphadenopathy Respiratory exam: Present: normal lung sounds bilaterally. Absent: respiratory distress, wheezes, rales, rhonchi, stridor Cardiovascular Exam: Present: regular rate, normal rhythm, normal heart sounds. Absent: systolic murmur, diastolic murmur, rubs, gallop, clicks GI/Abdominal exam: Present: soft, normal bowel sounds. Absent: distended, tenderness, guarding, rebound, rigid Extremities exam: Present: normal inspection, full ROM, normal capillary refill. Absent: tenderness, pedal edema, joint swelling, calf tenderness Back exam: Present: normal inspection Neurological exam: Present: alert, oriented X3, CN II-XII intact Psychiatric exam: Present: normal affect, normal mood Skin exam: Present: warm, dry, intact, normal color. Absent: rash Course Vital Signs 07/17/19 14:08 Temperature 98.6 F Pulse Rate 89 Respiratory 18 Rate Blood Pressure 122/79 O2 Sat by Pulse 97 Oximetry Medical Decision Making - Medical Decision Making The patient showing much improved after IV hydration he wishes to go home he leukocytosis and likely reactive patient will be discharged he is instructed to follow-up with his any issues at all. He is a follow-up with his doctor. - Lab Data Result diagrams: 07/17/19 14:44 07/17/19 14:44 Lab Results 07/17/19 07/17/19 Range/Units 14:44 14:44 WBC 19.9 H (3.8-10.6) k/uL RBC 5.31 (4.30-5.90) m/uL Hgb 14.7 (13.0-17.5) gm/dL Hct 46.1 (39.0-53.0) % MCV 86.8 D (80.0-100.0) fL MCH 27.7 (25.0-35.0) pg MCHC 31.9 (31.0-37.0) g/dL RDW 17.4 H (11.5-15.5) % Plt Count 246 (150-450) k/uL Neutrophils % 94 % Lymphocytes % 4 % Monocytes % 1 % Eosinophils % 0 % Basophils % 0 % Neutrophils # 18.8 H (1.3-7.7) k/uL Lymphocytes # 0.8 L (1.0-4.8) k/uL Monocytes # 0.1 (0-1.0) k/uL Eosinophils # 0.1 (0-0.7) k/uL Basophils # 0.1 (0-0.2) k/uL Anisocytosis Slight Sodium 140 (137-145) mmol/L Potassium 4.8 (3.5-5.1) mmol/L Chloride 107 (98-107) mmol/L Carbon Dioxide 21 L (22-30) mmol/L Anion Gap 12 mmol/L BUN 19 (9-20) mg/dL Creatinine 0.84 (0.66-1.25) mg/dL Est GFR (CKD-EPI)AfAm >90 (>60 ml/min/1.73 sqM) Est GFR (CKD-EPI)NonAf >90 (>60 ml/min/1.73 sqM) Glucose 73 L (74-99) mg/dL Calcium 9.5 (8.4-10.2) mg/dL Magnesium 2.4 H (1.6-2.3) mg/dL Total Bilirubin 0.6 (0.2-1.3) mg/dL AST 29 (17-59) U/L ALT 12 L (21-72) U/L Alkaline Phosphatase 114 (38-126) U/L Total Protein 7.4 (6.3-8.2) g/dL Albumin 4.5 (3.5-5.0) g/dL Lipase 300 (23-300) U/L - Radiology Data Radiology results: report reviewed (I did review the imaging and report evidence of a resolving infiltrate), image reviewed Disposition Clinical Impression: Gastroenteritis, Dehydration, Lymphoma Disposition: HOME SELF-CARE Condition: Good Instructions (If sedation given, give patient instructions): Acute Nausea and Vomiting (ED), Acute Diarrhea (ED), Dehydration (ED) Is patient prescribed a controlled substance at d/c from ED?: No Referrals: Randy Leroy MD [Primary Care Provider] - 1-2 days
[2019-07-17] MEDS ORDERED: SODIUM CHLORIDE 0.9% 1,000 ML IV STA ×2 (14:48)
[2019-07-17] MEDS ORDERED: SODIUM CHLORIDE 0.9% 500 ML 500 ML IV STA (14:48)
[2019-07-17 15:00] LABS: Anisocytosis Slight; Basophils # (A) 0.1 k/uL (0-0.2); Basophils % (A) 0 %; Eosinophils # (A) 0.1 k/uL (0-0.7); Eosinophils % (A) 0 %; HCT 46.1 % (39.0-53.0); HGB 14.7 gm/dL (13.0-17.5); Lymphocytes # (A) 0.8 k/uL (1.0-4.8); Lymphocytes % (A) 4 %; MCH 27.7 pg (25.0-35.0); MCHC 31.9 g/dL (31.0-37.0); Mean Platelet Volume 6.2; Monocytes # (A) 0.1 k/uL (0-1.0); Monocytes % (A) 1 %; Neutrophils # (A) 18.8 k/uL (1.3-7.7); Neutrophils % (A) 94 %; Platelet Count 246 k/uL (150-450); RBC 5.31 m/uL (4.30-5.90); RDW 17.4 % (11.5-15.5); WBC 19.9 k/uL (3.8-10.6)
[2019-07-17 15:06] LABS: MCV 86.8 fL (80.0-100.0)
[2019-07-17 15:13] LABS: ALT 12 U/L (21-72); AST 29 U/L (17-59); African American GFR (CKD) >90 (>60 ml/min/1.73 sqM); Albumin 4.5 g/dL (3.5-5.0); Alkaline Phosphatase 114 U/L (38-126); Anion Gap 12 mmol/L; Blood Urea Nitrogen 19 mg/dL (9-20); Calcium 9.5 mg/dL (8.4-10.2); Carbon Dioxide 21 mmol/L (22-30); Chloride 107 mmol/L (98-107); Glucose 73 mg/dL (74-99); Magnesium 2.4 mg/dL (1.6-2.3); Potassium 4.8 mmol/L (3.5-5.1); Sodium 140 mmol/L (137-145); Total Bilirubin 0.6 mg/dL (0.2-1.3); Total Protein 7.4 g/dL (6.3-8.2)
--- NOTE | 2019-07-17 15:50 | XR ---
EXAMINATION TYPE: XR chest 2V DATE OF EXAM: 07/17/2019 HISTORY: pain. REFERENCE: Previous study dated 06/30/2019. FINDINGS: Lung volumes are mildly prominent. There is some residual inflammatory change within the ri ght lower lung. This has improved. The left lung is clear. Pleural space are clear. The heart is not enlarged. IMPRESSION: NEAR COMPLETE RESOLUTION OF THE PATIENT'S RIGHT LOWER LOBE AIRSPACE DISEASE. FURTHER FOLLOW-UP WOULD BE SUGGESTED.
--- NOTE | 2019-07-17 15:51 | XR ---
EXAMINATION TYPE: XR KUB , 2 VIEWS DATE OF EXAM ORDERED: 07/17/2019 HISTORY: pain. COMPARISON: None. FINDINGS: Lung bases are clear. Within the abdomen, there are mildly air-filled loops of small bowel. There are scattered air-fluid l evels. There is no free air. There is a well-defined calcification in the right midabdomen. This may relate to the right kidney. IMPRESSION: SMALL BOWEL ILEUS VERSUS EARLY OR PARTIAL OBSTRUCTION.
[2019-07-17 16:45] VITALS: BP 124/83; PULSE 88; TEMP 98.1
== END 2019-07-17 16:45 | disposition home or self-care (01) ==
LOC: EC 14:05
DX: K52.9 Noninfective gastroenteritis and colitis, unspecified (principal); E86.0 Dehydration; C85.90 Non-Hodgkin lymphoma, unspecified, unspecified site; D72.829 Elevated white blood cell count, unspecified; F17.200 Nicotine dependence, unspecified, uncomplicated; J30.1 Allergic rhinitis due to pollen; Z79.1 Long term (current) use of non-steroidal anti-inflammatories (NSAID); Z91.040 Latex allergy status; Z92.21 Personal history of antineoplastic chemotherapy; Z86.14 Personal history of Methicillin resistant Staphylococcus aureus infection
CPT/HCPCS: 36415; 71046; 74018; 80053; 83690; 83735; 85025; 96360; 96361; 99284

== ENCOUNTER 2019-09-01 09:56 | Day surgery (SDC) | payer OTHER ==
[2019-08-31 11:30] VITALS: BMI 35.2
--- NOTE | 2019-09-01 09:32 | P.GSHP ---
History of Present Illness H&P Date: 09/01/19 Chief Complaint: Open wound chest wall This patient had extravasation and subsequent open ulceration in the site of his previous Port-A-Cath. He has undergone previous superficial debridements and wound VAC. He still has some nonviable tissue and has developed a substantial area of undermining. It is too tender to debridement without anesthetic. - Constitutional Constitutional: Denies chills, Denies fever - EENT Eyes: denies blurred vision, denies pain Ears, nose, mouth and throat: Denies headache, Denies sore throat - Cardiovascular Cardiovascular: Denies chest pain, Denies shortness of breath - Respiratory Respiratory: Denies cough, Denies 7 - Gastrointestinal Gastrointestinal: Denies abdominal pain, Denies diarrhea, Denies nausea, Denies vomiting - Genitourinary (Female) Genitourinary: Denies dysuria, Denies hematuria - Genitourinary (Male) Genitourinary: Denies dysuria, Denies hematuria - Musculoskeletal Musculoskeletal: Denies myalgias - Integumentary Integumentary: Denies pruritus, Denies rash - Neurological Neurological: Denies numbness, Denies weakness - Psychiatric Psychiatric: Denies anxiety, Denies depression - Endocrine Endocrine: Denies fatigue, Denies weight change - Hematologic/Lymphatic Comment: Malignancy requiring chemotherapy as previously documented Past Medical History Past Medical History: Cancer, COPD, GERD/Reflux, Sleep Apnea/CPAP/BIPAP Additional Past Medical History / Comment(s): Non hodgkins lymphoma. port a cath infection.rEMOVED) chemo, History of Any Multi-Drug Resistant Organisms: MRSA Date of last positivie culture/infection: 06/03/19 MDRO Source:: chest wall Past Surgical History: No Surgical Hx Reported Additional Past Surgical History / Comment(s): Colonoscopy, lymph node biopsy. right chest port a cath AND REMOVED Past Anesthesia/Blood Transfusion Reactions: No Reported Reaction Additional Past Anesthesia/Blood Transfusion Reaction / Comment(s): Pt has received blood in past without reaction. Smoking Status: Current every day smoker - Past Family History Father Family Medical History: No Reported History Additional Family Medical History / Comment(s): Father is healthy and is 82 yrs old. Mother Family Medical History: No Reported History Additional Family Medical History / Comment(s): Mother from dementia. Medications and Allergies Home Medications Medication Instructions Recorded Confirmed Type Acetaminophen Tab [Tylenol Tab] 650 mg PO Q4H PRN #30 tablet 06/08/19 08/31/19 Rx Collagenase [Santyl] 1 applic TOPICAL DAILY 06/30/19 08/31/19 History Atomoxetine HCl [Strattera] 160 mg PO QAM 08/31/19 08/31/19 History Gentamicin 0.3% Ophth Soln 2 drops BOTH EYES BID 08/31/19 08/31/19 History [Garamycin 0.3% Ophth Soln] QUEtiapine [SEROquel] 100 mg PO DAILY 08/31/19 08/31/19 History QUEtiapine [SEROquel] 200 mg PO HS 08/31/19 08/31/19 History busPIRone HCL [Buspar] 30 mg PO BID 08/31/19 08/31/19 History Allergies Allergy/AdvReac Type Severity Reaction Status Date / Time adhesive tape Allergy RED SKIN Verified 08/31/19 10:52 AND BLISTERS latex Allergy Rash/Hives Verified 08/31/19 11:10 ragweed pollen Allergy Wheezing Verified 08/31/19 10:53 Surgical - Exam Osteopathic Statement: *. No significant issues noted on an osteopathic structural exam other than those noted in the History and Physical/Consult. - General well developed, well nourished, no distress, obese - Eyes normal ocular movement, no icteric - ENT no hearing loss, no congestion - Neck no masses, trachea midline - Respiratory normal expansion (Large open wound about 8 cm in diameter anterior right chest wall, supraclavicular area), normal respiratory effort, clear to auscultation - Cardiovascular Rhythm: regular - Abdomen Abdomen: soft, non tender, no guarding, no rigid, no rebound - Integumentary no rash, no abnormal pigmentation - Neurologic no disoriented, no combative - Musculoskeletal normal gait, normal posture - Psychiatric oriented to time, oriented to person, oriented to place, speech is normal, memory intact Assessment and Plan (1) Open wound of right chest wall with complication Status: Acute Code(s): S21.101A - UNSP OPN WND R FRNT WL OF THORAX W/O PENET THOR CAVITY, INIT SNOMED Code(s): 44854114 Plan: Patient is admitted today for surgical debridement. He appears to understand the procedure and its risks and verbalizes his understanding and agreement with this process.
[~2019-09-01 09:56] MED LIST changes: -HEPARIN SODIUM,PORCINE 5,000 UNIT/ML 1 ML VIAL SQ ONE; +HYDROmorphone 0.5 MG/0.5 ML SYRINGE IVP PRN; -KETAMINE 10 MG/ML 20 ML VIAL ONE; -LIDOCAINE 1% 20 ML VIAL (10MG/ML) FOR IV START INTRADERMA PRN; -LIDOCAINE 1% INJ 10MG/ML (20 ML MDV) ONE; -LIDOCAINE 1%-EPI 1:100,000 20 ML VIAL SQ ONE; +MIDAZOLAM 2 MG/2 ML VIAL IV PRN; -MIDAZOLAM 2 MG/2 ML VIAL ONE; -PROPOFOL 10 MG/ML 20 ML VIAL IV ONE; +Pre Op ABX Message 1 EACH MISC MISCELLANE ONE; +SCOPOLAMINE 1.5MG/72HR PATCH TRANSDERM ONE; -fentaNYL (PF) 50 MCG/ML 2 ML AMP ONE
[2019-09-01 10:20] VITALS: TEMP 97.1
[2019-09-01] MEDS ORDERED: LIDOCAINE 1% 20 ML VIAL (10MG/ML) FOR IV START INTRADERMA ONE (10:23)
[2019-09-01] MEDS ORDERED: fentaNYL (PF) 50 MCG/ML 2 ML AMP ONE (10:43)
[2019-09-01] MEDS ORDERED: KETAMINE 10 MG/ML 20 ML VIAL ONE (10:43)
[2019-09-01] MEDS ORDERED: MIDAZOLAM 2 MG/2 ML VIAL ONE (10:43)
[2019-09-01] MEDS ORDERED: PROPOFOL 10 MG/ML 20 ML VIAL IV ONE (10:43)
[2019-09-01] MEDS ORDERED: LIDOCAINE 1% INJ 10MG/ML (20 ML MDV) ONE (10:43)
--- NOTE | 2019-09-01 11:30 | P.PCN ---
Date of Procedure: 09/01/19 Preoperative Diagnosis: Necrotic chest wall ulcer Postoperative Diagnosis: Same Procedure(s) Performed: Date of service: 09/01/2019 Surgeon: Alisha Pre-and postop diagnosis: Necrotic ulcer right chest wall Type of debridement: Excisional surgical subcutaneous Chief complaint: ulcer of anterior right chest wall Anesthesia: 2% lidocaine gel applied to the ulcer Signs of infection: Purulent necrotic tissue Other material in the wound that is expected to inhibit healing or promote adjacent tissue breakdown: Same Degree of epithelialization: % Method and instrument: Surgical debridement with scalpel Character of the wound after debridement: Clean bloody subcutaneous bed Description of necrotic material present: Necrotic slough and nonviable soft tissue undermined skin and subcutaneous ridge Description of tissue removed: Same Pre-debridement measurement: 6 x 5 cm and 0.2 cm in depth Postoperative debridement measurement: 9 x 10 cm and 0.7 cm in depth Specimens none sent Control of bleeding:Bleeding was easily controlled with electrocautery followed by saline moistened gauze and light pressure Post debridement dressing: Absorptive silver topped with dry gauze and adhered with paper tape Patient tolerated procedure well Anesthesia: MAC Estimated Blood Loss (ml): 30 Pathology: none sent Condition: stable Disposition: PACU
[2019-09-01 11:32] VITALS: RESP 16
[2019-09-01 12:01] VITALS: BP 123/82; PULSE 68
== END 2019-09-01 12:16 | disposition home or self-care (01) ==
LOC: OR 09:56
PROVIDERS: ATTEND Thoracic Surgery (Cardiothoracic Vascular Surgery)
DX: S21.101D Unspecified open wound of right front wall of thorax without penetration into thoracic cavity, subsequent encounter (principal); L98.499 Non-pressure chronic ulcer of skin of other sites with unspecified severity; J44.9 Chronic obstructive pulmonary disease, unspecified; G47.33 Obstructive sleep apnea (adult) (pediatric); F90.9 Attention-deficit hyperactivity disorder, unspecified type; F41.9 Anxiety disorder, unspecified; F31.9 Bipolar disorder, unspecified; K21.9 Gastro-esophageal reflux disease without esophagitis; F17.200 Nicotine dependence, unspecified, uncomplicated; Z91.040 Latex allergy status; Z91.09 Other allergy status, other than to drugs and biological substances; Z85.72 Personal history of non-Hodgkin lymphomas; Z92.21 Personal history of antineoplastic chemotherapy; Z79.899 Other long term (current) drug therapy; Z86.14 Personal history of Methicillin resistant Staphylococcus aureus infection; Z98.890 Other specified postprocedural states; Z81.8 Family history of other mental and behavioral disorders; Z91.048 Other nonmedicinal substance allergy status
CPT/HCPCS: 11042; 11045; J2250; J1100; J2001; J3010; J2704

== ENCOUNTER → 2019-10-15 | Outpatient (CLI) | payer OTHER ==
--- NOTE | 2019-10-15 17:07 | CT ---
EXAMINATION TYPE: CT ChestAbdPelvis w con DATE OF EXAM: 10/15/2019 INDICATION: Non Hodgkins lymphoma. COMPARISON: 06/02/2019 CT DLP: 2780 mGycm CONTRAST: Performed with Oral Contrast and with IV Contrast, patient injected with 100 mL of Isovue M300. TECHNIQUE: Axial images at 5 mm thick sections. Reconstructed images in the coronal plane. Delayed images through the kidneys. FINDINGS: CT CHEST: Some soft tissue thickening may lie along the right anterior chest wall. Series 3 image 12. Portion of the thyroid visualized is normal. No suspicious lung nodules or focal infiltrates are present. No enlarged mediastinal or hilar adenopathy is evident. There is some shotty lymphadenopathy present. Thickening along the subcarinal lymph node has diminished from 1.8 to a current 1.3 cm. No suspiciou s axillary adenopathy is evident. The ascending aorta diameter at the level of the main pulmonary artery is 3.7 cm. The main pulmonary artery diameter at the bifurcation is 2.[address] ABDOMEN: Liver: Normal Spleen: Normal Pancreas: Normal Adrenal glands: The adrenal glands are normal. Gallbladder: Cholelithiasis is present. Kidneys: No masses are evident. There is marked right hydronephrosis and hydroureter extending to enl arged lymph nodes in the right hemipelvis.. No cysts are present. Delayed images were obtained throu gh the kidneys, which remain unremarkable. Aorta: Vascular calcification is within the aorta. Inferior vena cava: Normal. CT PELVIS: Loops of bowel within the abdomen and pelvis are normal. There are loops of bowel which are incom pletely distended or lack oral contrast limiting their evaluation. Appendix: Normal as visualized. Urinary bladder: Normal. Genitourinary structures: Prostate appears normal Osseous structures: No suspicious lytic or sclerotic lesions. Lymphadenopathy: There is a large right obturator canal, lymph nodes on previous may be obstructing t he ureter. Large inguinal lymph node is present in transverse dimension of 3.0 cm. Enlarged inguinal adenopathy is not evident. IMPRESSIONS: 1. Persistent right pelvic wall and right inguinal adenopathy. 2. Hydronephrosis and right hydroureter to the level of the enlarged lymph nodes. 3. Enlarged subcarinal lymph node
== END ==
LOC: RADCTMAIN 12:42
PROVIDERS: ATTEND Internal Medicine Hematology & Oncology
DX: N13.30 Unspecified hydronephrosis (principal); C85.88 Other specified types of non-Hodgkin lymphoma, lymph nodes of multiple sites; R59.0 Localized enlarged lymph nodes
CPT/HCPCS: 71260; 74177; Q9967 ×2

== ENCOUNTER → 2019-12-16 | Outpatient (CLI) | payer OTHER ==
--- NOTE | 2019-12-17 09:24 | CT ---
EXAMINATION TYPE: CT ChestAbdPelvis w con DATE OF EXAM: 12/16/2019 COMPARISON: Prior CT October 15, 2019 and older CTs. Prior PET/CT April 09, 2019. HISTORY: Non-Hodgkin's lymphoma progress study. Automated Exposure Control for Dose Reduction was Utilized. CONTRAST: CT scan of the thorax, abdomen and pelvis is performed with oral and with IV Contrast, patient inject ed with 100 mL of Isovue 300. FINDINGS: LUNGS: Focal linear scarring in the lingula near the diaphragm. No suspicious nodules or masses. No p leural effusion or pneumothorax. MEDIASTINUM: There are persistent prominent mediastinal lymph nodes. For reference there is 1.4 x 1.3 cm AP window lymph node axial image 23 mastectomy change from most recent CT axial image 26. For ref erence there is 2.3 x 1.4 cm subcarinal lymph node axial image 29 not significantly changed from most recent CT axial image 32. No cardiomegaly or pericardial effusion is seen. OTHER: Nodular subareolar bilateral gynecomastia is redemonstrated. LIVER/GB: Small calcified gallstones dependently in the gallbladder. Liver diffusely low dense consis tent with fatty infiltration. PANCREAS: No significant abnormality is seen. SPLEEN: No significant abnormality is seen. ADRENALS: No significant abnormality is seen. KIDNEYS: Persistent severe right-sided hydronephrosis and delayed excretion secondary to ureter encas ement from right iliac mass or adenopathy. BOWEL: Oral contrast does not reach colonic level making evaluation of bowel slightly suboptimal. No suspicious small or large bowel dilatation is present. Small bowel feces sign terminal ileum consiste nt with delayed passage of ingested material to colonic level given no proximal dilatation. GENITAL ORGANS: No gross abnormality seen. LYMPH NODES: Fairly stable confluent right iliac lobulated mass or adenopathy with some calcification measuring roughly 7.2 x 7.0 cm series 3 image 109 not significantly changed from most recent CT. Mor e anterior inferior distal iliac adenopathy measuring 3.4 x 3 point one centimeters axial image 117 s ignificantly changed from most recent CT axial image 117. Abnormal lymph nodes in the retroperitoneum fairly stable from most recent CT for reference AP window lymph node measures 1.4 x 0.9 cm axial image [address] axial image 78. No definitive new or enlarging lymph nodes from most recent CT. OSSEOUS STRUCTURES: Prominent Schmorl nodes inferior L4 endplate redemonstrated. OTHER: No significant additional abnormality is seen. IMPRESSION: Overall stable findings from most recent CT. Persistent right pelvic and inguinal adenop athy causing severe right-sided hydronephrosis and delayed excretion. Stable prominent and slightly e nlarged mediastinal lymph nodes. No new or enlarging adenopathy identified when correlating with most recent CT.
== END | disposition home or self-care (01) ==
LOC: RADCTMAIN 14:41
PROVIDERS: ATTEND Internal Medicine Hematology & Oncology
DX: N13.39 Other hydronephrosis (principal); R59.0 Localized enlarged lymph nodes; C85.88 Other specified types of non-Hodgkin lymphoma, lymph nodes of multiple sites
CPT/HCPCS: 71260; 74177; Q9967

== ENCOUNTER → 2020-03-27 | Day surgery (SDC) | payer OTHER ==
[2020-03-23 16:01] VITALS: BMI 40.6
[~2020-03-27] MED LIST changes: +ACETAMINOPHEN TAB 500 MG TAB PO ONE; +BUPIVACAIN-EPI 0.25%-1:200,000 30 ML VIAL SQ ONE; -DEXAMETHASONE SOD PHOSPHATE 10 MG/ML 1 ML VIAL IV ONE; +HEPARIN SODIUM,PORCINE 100 UNIT/ML 5 ML VIAL IV ONE; +HEPARIN SODIUM,PORCINE 5,000 UNIT/ML 1 ML VIAL SQ ONE; -HYDROmorphone 0.5 MG/0.5 ML SYRINGE IVP PRN; +IOPAMIDOL-370 50ML BTL MISCELLANE ONE; +LACTATED RINGERS 1,000 ML IV ONE; -LACTATED RINGERS 1,000 ML IV SCH; +LIDOCAINE 1% INJ 10MG/ML (20 ML MDV) ONE; -MIDAZOLAM 2 MG/2 ML VIAL IV PRN; +MIDAZOLAM 2 MG/2 ML VIAL ONE; -ONDANSETRON 4 MG/2 ML VIAL IVP ONE; +PROPOFOL 10 MG/ML 20 ML VIAL IV ONE; -SCOPOLAMINE 1.5MG/72HR PATCH TRANSDERM ONE; +ceFAZolin 1,000 MG VIAL IVPB ONE; +fentaNYL (PF) 50 MCG/ML 2 ML AMP IV ONE; +fentaNYL (PF) 50 MCG/ML 2 ML AMP ONE
--- NOTE | 2020-03-27 10:06 | P.GSHP ---
History of Present Illness H&P Date: 03/27/20 Chief Complaint: Lymphoma This a 55-year-old male with history of lymphoma. Patient presents today for Port-A-Cath placement Past Medical History Past Medical History: Cancer, COPD, GERD/Reflux, Sleep Apnea/CPAP/BIPAP Additional Past Medical History / Comment(s): Non hodgkins lymphoma. port a cath infection.rEMOVED), current cancer, History of Any Multi-Drug Resistant Organisms: MRSA Date of last positivie culture/infection: 06/03/19 MDRO Source:: chest wall Past Surgical History: No Surgical Hx Reported Additional Past Surgical History / Comment(s): Colonoscopy, lymph node biopsy. right chest port a cath AND REMOVED Past Anesthesia/Blood Transfusion Reactions: No Reported Reaction Additional Past Anesthesia/Blood Transfusion Reaction / Comment(s): Pt has received blood in past without reaction. Smoking Status: Current every day smoker - Past Family History Father Family Medical History: No Reported History, Hypertension Additional Family Medical History / Comment(s): Father is healthy and is 82 yrs old. Mother Family Medical History: No Reported History Additional Family Medical History / Comment(s): Mother from dementia. Medications and Allergies Home Medications Medication Instructions Recorded Confirmed Type Atomoxetine HCl [Strattera] 160 mg PO QAM 08/31/19 03/27/20 History QUEtiapine [SEROquel] 100 mg PO DAILY 08/31/19 03/27/20 History QUEtiapine [SEROquel] 200 mg PO HS 08/31/19 03/27/20 History busPIRone HCL [Buspar] 30 mg PO BID 08/31/19 03/27/20 History Allergies Allergy/AdvReac Type Severity Reaction Status Date / Time adhesive tape Allergy RED SKIN Verified 09/01/19 10:14 AND BLISTERS latex Allergy Rash/Hives Verified 09/01/19 10:14 ragweed pollen Allergy Wheezing Verified 09/01/19 10:14 Surgical - Exam Vital Signs Temp Pulse Resp BP Pulse Ox 97.5 F L 80 16 149/76 97 03/27/20 08:16 03/27/20 08:16 03/27/20 08:16 03/27/20 08:16 03/27/20 08:16 - General well developed, well nourished, no distress - Eyes PERRL - ENT normal pinna - Neck no masses - Respiratory Chronic right chest wall scar from previous portacath normal expansion - Cardiovascular Rhythm: regular - Abdomen Abdomen: soft, non tender Assessment and Plan Assessment: History of lymphoma. We'll perform left subclavian Port-A-Cath placement
--- NOTE | 2020-03-27 11:17 | P.OP ---
Date of Procedure: 03/27/20 Preoperative Diagnosis: Lymphoma Postoperative Diagnosis: Lymphoma Procedure(s) Performed: Insertion of left subclavian Port-A-Cath Anesthesia: MAC Surgeon: Pacheco Fraire Estimated Blood Loss (ml): 10 Pathology: none sent Condition: stable Disposition: PACU Description of Procedure: The patient was placed on the operating table in the supine position. The patient received IV sedation. The patient's chest was prepped and draped in the usual sterile fashion. A roll had been placed between the shoulder blades in a longitudinal fashion. After prepping and draping the skin was anesthetized 1% local Xylocaine. And then using the Seldinger technique the left subclavian vein was cannulated. A wire was placed into the vein and fluoroscopy position the wire at the atrial caval junction. Next the dilator sheath was placed over top the wire and the wire was withdrawn. The catheter was positioned at the atriocaval position. The catheter was placed through the sheath after the dilator was withdrawn. The sheath was then withdrawn. Position of the catheter was confirmed with fluoroscopy. The Port-A-Cath was connected to the catheter. The Port-A-Cath was flushed with saline and then heparinized saline. The skin was closed interrupted 3-0 Monocryl suture. Dermabond was applied. Patient tolerated procedure well and was sent to recovery room stable condition.
[2020-03-27 11:27] VITALS: TEMP 97.3
--- NOTE | 2020-03-27 11:32 | FL ---
EXAMINATION TYPE: FL guided central line placemt HISTORY: Fluoroscopy time Impression: 1. Fluoroscopy support provided to the referring physician. 4 seconds of fluoroscopy utilized
--- NOTE | 2020-03-27 11:50 | XR ---
EXAMINATION TYPE: XR chest 1V portable DATE OF EXAM: 03/27/2020 COMPARISON: 07/17/2019 HISTORY: Port-A-Cath insertion TECHNIQUE: Single frontal view of the chest is obtained. FINDINGS: Left-sided Mediport seen with the tip near the level the SVC. Coarsened interstitium seen with no sizable pneumothorax. Heart size stable. Patient is slightly rotated. No overt failure. Left lung base not included on exam limited. IMPRESSION: 1. No evidence of pneumothorax post-Mediport insertion
[2020-03-27 11:58] VITALS: RESP 17
[2020-03-27 12:04] VITALS: BP 103/65; PULSE 70
== END ==
LOC: OR 07:53
PROVIDERS: ATTEND Surgery
DX: C85.90 Non-Hodgkin lymphoma, unspecified, unspecified site (principal); J44.9 Chronic obstructive pulmonary disease, unspecified; K21.9 Gastro-esophageal reflux disease without esophagitis; G47.33 Obstructive sleep apnea (adult) (pediatric); F17.210 Nicotine dependence, cigarettes, uncomplicated; E66.01 Morbid (severe) obesity due to excess calories; Z68.41 Body mass index [BMI] 40.0-44.9, adult; Z99.89 Dependence on other enabling machines and devices; Z86.14 Personal history of Methicillin resistant Staphylococcus aureus infection; Z98.890 Other specified postprocedural states; Z79.899 Other long term (current) drug therapy; Z91.09 Other allergy status, other than to drugs and biological substances; Z91.040 Latex allergy status; Z91.048 Other nonmedicinal substance allergy status; Z79.891 Long term (current) use of opiate analgesic; Z82.49 Family history of ischemic heart disease and other diseases of the circulatory system; Z81.8 Family history of other mental and behavioral disorders
CPT/HCPCS: 77001; 36561; 71045; C1788; J2250; J1644; J1642; J0690; J2001; J3010; J2704; Q9967

== ENCOUNTER → 2020-04-20 | Outpatient (CLI) | payer OTHER ==
[2020-04-20 11:15] LABS: African American GFR (CKD) >90 (>60 ml/min/1.73 sqM); Blood Urea Nitrogen 7 mg/dL (9-20); Non-African American GFR(CKD) >90 (>60 ml/min/1.73 sqM)
--- NOTE | 2020-04-20 13:06 | CT ---
EXAMINATION TYPE: CT ChestAbdPelvis w con DATE OF EXAM: 04/20/2020 COMPARISON: 12/16/2019, 10/15/2019, 04/09/2019 HISTORY: 55-year-old male C85.88, Non Hodgkin's lymphoma. TECHNIQUE: Contiguous axial scanning of the chest, abdomen, and pelvis performed with IV Contrast, pa tient injected with 100ml mL of Isovue 300. Delayed images through the kidneys were obtained. Coronal /sagittal reconstructions performed. CT DLP: 3229.5 mGycm Automated exposure control for dose reduction was used. FINDINGS: CHEST: Heart normal size without pericardial effusion. Aorta normal caliber with conventional vessel branching anatomy. Scarring from previous right anterior chest wall injection port. Right paratracheal lymph node measures up to 1 cm, unchanged from 12/16/2019 and improved from 10/15/19 20. Subcarinal lymph node measures 1.2 cm thick, unchanged from 12/16/2019. Left paraesophageal lymph node at the same level measures 8 mm, unchanged. No new or enlarging thoracic lymphadenopathy. Mild bilateral gynecomastia. Strandy atelectasis at the inferior lingula. No consolidation or pleural effusion. ABDOMEN: Liver enlarged at 21.7 cm with low-attenuation, suspect hepatic steatosis. Portal venous system is pa tent. No biliary ductal dilatation. Gallbladder shows a 9 mm dependent gallstone. Adrenal glands, left kidney, spleen, and pancreas appear within normal limits. Continued severe right-sided hydronephrosis with asymmetric cortical thinning. Corresponding hydroure ter to the level of the right pelvic mass identified previously. There is corresponding delayed excre tion of contrast from the right kidney compatible with obstructive uropathy. Scattered nonenlarged and borderline sized retroperitoneal lymph nodes overall unchanged measuring up to 1.2 x 1.1 cm in the aortocaval region. No mesenteric lymphadenopathy seen. No dilated small bowel, free fluid, or free air. Scattered mild stool burden especially in the cecum and sigmoid colon. PELVIS: Large heterogeneous mass of the right iliac fossa abutting the iliac is measuring up to 10.4 cm AP by approximately 12.2 cm craniocaudal. This shows increasing size versus 7.9 x 6.2 cm, previously. An additional mass along the anterior right pelvis possibly involving the deep aspect of the right re ctus abdominis measures 5.7 x 5.4 cm now versus 3.4 x 3.1 cm, previously. The intervening fat plane w ith the rectus abdominis is now no longer defined. Bladder urine distended. No abnormal fluid collection the pelvis. BONES: Mild degenerative changes at the hips. Degenerative disc disease and endplate spondylosis L4-L5. Mild anterior endplate spondylosis midthoracic spine. No osseous destructive process seen. IMPRESSION: 1. LARGE DIONE MASS IN THE RIGHT SIDE OF THE PELVIS MAY NOW HAVE INVASION INTO THE RIGHT ILIACUS MUSC LE AND CURRENTLY MEASURES 12.2 X 10.4 CM (VERSUS 7.9 X 6.2 CM, PREVIOUSLY). 2. SECOND SOFT TISSUE MASS ALONG THE ANTERIOR RIGHT SIDE OF THE PELVIS MAY NOW HAVE INVASION INTO THE DEEP PORTION OF THE RECTUS ABDOMINOUS MUSCLE AND CURRENTLY MEASURES 5.7 X 5.4 CM (VERSUS 3.4 X 3.1 C M, PREVIOUSLY). 3. CONTINUED SEVERE RIGHT-SIDED HYDRONEPHROSIS AND OBSTRUCTIVE UROPATHY AND ASYMMETRIC RENAL ATROPHY. CONSIDER UROLOGY REFERRAL FOR STENT PLACEMENT TO PRESERVE ANY REMAINING KIDNEY FUNCTION. 4. A FEW BORDERLINE TO MILDLY ENLARGED RETROPERITONEAL LYMPH NODES MEASURING UP TO 1.2 CM ARE UNCHANG ED. NO OTHER NEW OR PROGRESSIVE LYMPHADENOPATHY IS SEEN. 5. 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
--- NOTE | 2020-04-20 19:05 | US ---
EXAMINATION TYPE: US scrotum with doppler. Grayscale and color Doppler Duplex imaging performed of bud adrian scrotum. DATE OF EXAM: 04/20/2020 COMPARISON: CLINICAL HISTORY: R22 localized swelling/mass/lump. Patient is going through chemo. Right sided pain . Non-Hodgkin lymphoma. EXAM MEASUREMENTS: TESTICLES: Right Testicle: 4.1 x 3.4 x 2.4 cm Left Testicle: 4.1 x 3.2 x 2.0 cm EPIDIDYMIS HEAD: Right Epididymis: 1.3 x 1.1 cm. 1.0 cm epididymal head cyst. Left Epididymis: 1.2 x 0.6 cm Doppler performed to assess for testicular vascularity; good bilateral color flow and waveforms are s een. There is no evidence of testicular torsion. Presence of hydroceles: Small right. Presence of varicoceles: No. There is mild scrotal wall thickening bilaterally up to 5 mm. Spray Maker documents peristalsing bowel within the right inguinal canal. IMPRESSION: 1. Most likely bowel containing right inguinal hernia. 2. No evidence of testicular mass, torsion, or orchitis/epididymitis.
== END | disposition home or self-care (01) ==
LOC: RADCTMAIN 10:27
PROVIDERS: ATTEND Internal Medicine Hematology & Oncology
DX: N13.30 Unspecified hydronephrosis (principal); C85.88 Other specified types of non-Hodgkin lymphoma, lymph nodes of multiple sites; K76.0 Fatty (change of) liver, not elsewhere classified
CPT/HCPCS: 82565; 84520; 93975; 76870; 71260; 74177; 36415; J1642; Q9967

== ENCOUNTER 2020-05-15 11:49 | Inpatient (IN) | payer OTHER ==
[2020-05-15] MEDS ORDERED: MORPHINE SULFATE 4 MG/ML SYRINGE IV STA (12:18)
[2020-05-15] MEDS ORDERED: SODIUM CHLORIDE 0.9% 500 ML 500 ML IV STA (12:18)
--- NOTE | 2020-05-15 12:21 | ED ---
General Adult HPI - General Chief complaint: Skin/Abscess/Foreign Body Stated complaint: body pain and open wound Time Seen by Provider: 05/15/20 12:07 Source: patient, RN notes reviewed, old records reviewed Mode of arrival: ambulatory Limitations: no limitations - History of Present Illness Initial comments: 65-year-old male history of non-Hodgkin's lymphoma, stage IV presenting from his oncologist's office for evaluation of fever and right lower quadrant pain. Patient is currently on chemotherapy, his last session was 2 weeks ago. He's had several days of lower abdominal pain which she describes as bilateral may be worse on the right. He denies fever. He denies cough. Additionally has a nonhealing right upper chest wound which she has been dealing with for approximately one year. He states this has recently opened but overall is doing quite well. - Related Data Home Medications Medication Instructions Recorded Confirmed Atomoxetine HCl [Strattera] 80 mg PO QAM 08/31/19 05/15/20 QUEtiapine [SEROquel] 100 mg PO HS 08/31/19 05/15/20 busPIRone HCL [Buspar] 30 mg PO BID 08/31/19 05/15/20 Ondansetron [Zofran] 4 mg PO Q4H PRN 05/15/20 05/15/20 QUEtiapine XR [SEROquel XR] 150 mg PO DAILY 05/15/20 05/15/20 Sertraline [Zoloft] 200 mg PO DAILY 05/15/20 05/15/20 Allergies Allergy/AdvReac Type Severity Reaction Status Date / Time adhesive tape Allergy RED SKIN Verified 05/15/20 13:45 AND BLISTERS latex Allergy Rash/Hives Verified 05/15/20 13:45 ragweed pollen Allergy Wheezing Verified 05/15/20 13:45 Review of Systems ROS Statement: Those systems with pertinent positive or pertinent negative responses have been documented in the HPI. ROS Other: All systems not noted in ROS Statement are negative. Past Medical History Past Medical History: Cancer Additional Past Medical History / Comment(s): Non hodgkins lymphoma. port a cath infection.rEMOVED) chemo, History of Any Multi-Drug Resistant Organisms: MRSA Date of last positivie culture/infection: 06/03/19 MDRO Source:: chest wall Past Surgical History: No Surgical Hx Reported Additional Past Surgical History / Comment(s): Colonoscopy, lymph node biopsy. right chest port a cath AND REMOVED Past Anesthesia/Blood Transfusion Reactions: No Reported Reaction Additional Past Anesthesia/Blood Transfusion Reaction / Comment(s): Pt has received blood in past without reaction. Past Psychological History: ADD/ADHD, Anxiety, Bipolar, Depression Smoking Status: Current every day smoker, Vaper Past Alcohol Use History: Occasional Past Drug Use History: Marijuana - Past Family History Father Additional Family Medical History / Comment(s): Father is healthy and is 82 yrs old. Mother Family Medical History: No Reported History Additional Family Medical History / Comment(s): Mother from dementia. General Exam Limitations: no limitations General appearance: alert Head exam: Present: atraumatic, normocephalic Eye exam: Present: normal appearance, PERRL ENT exam: Present: normal exam Neck exam: Present: normal inspection. Absent: tenderness, meningismus Respiratory exam: Present: normal lung sounds bilaterally, other (Right chest wall, there is mild erythema surrounding a chronic wound. No induration, no fluctuance, minimal scabbing of approximately 1 cm. Skin is very thin.). Absent: respiratory distress, wheezes Cardiovascular Exam: Present: normal rhythm, tachycardia GI/Abdominal exam: Present: soft, tenderness (Mild bilateral lower quadrant tenderness). Absent: distended Extremities exam: Present: normal inspection, normal capillary refill. Absent: pedal edema, calf tenderness Course Vital Signs 05/15/20 05/15/20 11:53 13:43 Temperature 99.9 F H Pulse Rate 119 H 100 Respiratory 22 18 Rate Blood Pressure 130/71 112/85 O2 Sat by Pulse 97 98 Oximetry Medical Decision Making - Medical Decision Making 55 red male presenting with fever, abdominal pain, he is on chemotherapy for non-Hodgkin's lymphoma. Workup reveals absolute neutropenia, white count of 400. Lactic acid 3.4. CT shows an enlarging mass. Chest x-ray negative for focal pneumonia. He started on antibiotics initially for abdominal coverage and switch to cefepime and vancomycin for neutropenic fever. He will be admitted for continued IV antibiotics. Case discussed with Dr. Leroy who will admit. - Lab Data Result diagrams: 05/15/20 12:41 05/15/20 12:41 Lab Results 05/15/20 05/15/20 05/15/20 Range/Units 12:41 12:41 12:41 WBC 1.6 L (3.8-10.6) k/uL RBC 4.00 L (4.30-5.90) m/uL Hgb 12.1 L (13.0-17.5) gm/dL Hct 37.1 L (39.0-53.0) % MCV 92.8 (80.0-100.0) fL MCH 30.3 (25.0-35.0) pg MCHC 32.7 (31.0-37.0) g/dL RDW 16.2 H (11.5-15.5) % Plt Count 182 (150-450) k/uL Neutrophils % (Manual) 27 % Band Neutrophils % 4 % Lymphocytes % (Manual) 45 % Monocytes % (Manual) 21 % Eosinophils % (Manual) 1 % Myelocytes % 2 % Neutrophils # (Manual) 0.40 L* (1.3-7.7) k/uL Lymphocytes # (Manual) 0.72 L (1.0-4.8) k/uL Monocytes # (Manual) 0.34 (0-1.0) k/uL Eosinophils # (Manual) 0.02 (0-0.7) k/uL Myelocytes # (Manual) 0.03 H (0) k/uL Nucleated RBCs 0 (0-0) /100 WBC Manual Slide Review Performed Poikilocytosis (manual Present Anisocytosis Slight PT 9.4 (9.0-12.0) sec INR 0.9 (<1.2) APTT 22.1 (22.0-30.0) sec Sodium 139 (137-145) mmol/L Potassium 3.6 (3.5-5.1) mmol/L Chloride 104 (98-107) mmol/L Carbon Dioxide 25 (22-30) mmol/L Anion Gap 10 mmol/L BUN 12 (9-20) mg/dL Creatinine 1.07 (0.66-1.25) mg/dL Est GFR (CKD-EPI)AfAm >90 (>60 ml/min/1.73 sqM) Est GFR (CKD-EPI)NonAf 78 (>60 ml/min/1.73 sqM) Glucose 139 H (74-99) mg/dL Plasma Lactic Acid Marcos (0.7-2.0) mmol/L Calcium 9.2 (8.4-10.2) mg/dL Total Bilirubin 0.3 (0.2-1.3) mg/dL AST 38 (17-59) U/L ALT 25 (4-49) U/L Alkaline Phosphatase 59 (38-126) U/L Total Protein 6.2 L (6.3-8.2) g/dL Albumin 4.0 (3.5-5.0) g/dL Amylase 37 (30-110) U/L Lipase 109 (23-300) U/L Urine Color Urine Appearance (Clear) Urine pH (5.0-8.0) Ur Specific Angie (1.001-1.035) Urine Protein (Negative) Urine Glucose (UA) (Negative) Urine Ketones (Negative) Urine Blood (Negative) Urine Nitrite (Negative) Urine Bilirubin (Negative) Urine Urobilinogen (<2.0) mg/dL Ur Leukocyte Esterase (Negative) 05/15/20 05/15/20 Range/Units 12:41 14:27 WBC (3.8-10.6) k/uL RBC (4.30-5.90) m/uL Hgb (13.0-17.5) gm/dL Hct (39.0-53.0) % MCV (80.0-100.0) fL MCH (25.0-35.0) pg MCHC (31.0-37.0) g/dL RDW (11.5-15.5) % Plt Count (150-450) k/uL Neutrophils % (Manual) % Band Neutrophils % % Lymphocytes % (Manual) % Monocytes % (Manual) % Eosinophils % (Manual) % Myelocytes % % Neutrophils # (Manual) (1.3-7.7) k/uL Lymphocytes # (Manual) (1.0-4.8) k/uL Monocytes # (Manual) (0-1.0) k/uL Eosinophils # (Manual) (0-0.7) k/uL Myelocytes # (Manual) (0) k/uL Nucleated RBCs (0-0) /100 WBC Manual Slide Review Poikilocytosis (manual Anisocytosis PT (9.0-12.0) sec INR (<1.2) APTT (22.0-30.0) sec Sodium (137-145) mmol/L Potassium (3.5-5.1) mmol/L Chloride (98-107) mmol/L Carbon Dioxide (22-30) mmol/L Anion Gap mmol/L BUN (9-20) mg/dL Creatinine (0.66-1.25) mg/dL Est GFR (CKD-EPI)AfAm (>60 ml/min/1.73 sqM) Est GFR (CKD-EPI)NonAf (>60 ml/min/1.73 sqM) Glucose (74-99) mg/dL Plasma Lactic Acid Marcos 3.4 H* (0.7-2.0) mmol/L Calcium (8.4-10.2) mg/dL Total Bilirubin (0.2-1.3) mg/dL AST (17-59) U/L ALT (4-49) U/L Alkaline Phosphatase (38-126) U/L Total Protein (6.3-8.2) g/dL Albumin (3.5-5.0) g/dL Amylase (30-110) U/L Lipase (23-300) U/L Urine Color Yellow Urine Appearance Clear (Clear) Urine pH 6.5 (5.0-8.0) Ur Specific Angie 1.038 H (1.001-1.035) Urine Protein Negative (Negative) Urine Glucose (UA) Negative (Negative) Urine Ketones Negative (Negative) Urine Blood Negative (Negative) Urine Nitrite Negative (Negative) Urine Bilirubin Negative (Negative) Urine Urobilinogen <2.0 (<2.0) mg/dL Ur Leukocyte Esterase Negative (Negative) Disposition Clinical Impression: Non-Hodgkin's lymphoma in adult, Neutropenic fever Disposition: ADMITTED IP TO THIS HOSP Condition: Stable Is patient prescribed a controlled substance at d/c from ED?: No Referrals: Satish Leroy MD [REFERRING] - 1-2 days Decision to Admit Reason: Admit from EC Decision Date: 05/15/20 Decision Time: 15:04
[2020-05-15 12:55] LABS: Anisocytosis Slight; HCT 37.1 % (39.0-53.0); HGB 12.1 gm/dL (13.0-17.5); MCH 30.3 pg (25.0-35.0); MCHC 32.7 g/dL (31.0-37.0); MCV 92.8 fL (80.0-100.0); Mean Platelet Volume 7.6; Platelet Count 182 k/uL (150-450); RDW 16.2 % (11.5-15.5); WBC 1.6 k/uL (3.8-10.6)
--- NOTE | 2020-05-15 13:01 | XR ---
EXAMINATION TYPE: XR chest 2V DATE OF EXAM: 05/15/2020 COMPARISON: Chest x-ray March 27, 2020. HISTORY: Fever. TECHNIQUE: Frontal and lateral views of the chest are obtained. FINDINGS: Stable left subclavian Mediport catheter. There is some chronic parenchymal change without suspicious new peripheral focal air space opacity, pleural effusion, or pneumothorax seen bilaterall y. The cardiac silhouette size is within normal limits currently. The osseous structures are intac t. IMPRESSION: No new acute infiltrate.
[2020-05-15 13:08] LABS: ALT 25 U/L (4-49); AST 38 U/L (17-59); African American GFR (CKD) >90 (>60 ml/min/1.73 sqM); Alkaline Phosphatase 59 U/L (38-126); Amylase 37 U/L (30-110); Anion Gap 10 mmol/L; Blood Urea Nitrogen 12 mg/dL (9-20); Calcium 9.2 mg/dL (8.4-10.2); Carbon Dioxide 25 mmol/L (22-30); Chloride 104 mmol/L (98-107); Glucose 139 mg/dL (74-99); Lipase 109 U/L (23-300); Non-African American GFR(CKD) 78 (>60 ml/min/1.73 sqM); Potassium 3.6 mmol/L (3.5-5.1); Sodium 139 mmol/L (137-145); Total Bilirubin 0.3 mg/dL (0.2-1.3); Total Protein 6.2 g/dL (6.3-8.2)
[2020-05-15 13:11] LABS: INR 0.9 (<1.2); Partial Thromboplastin Time 22.1 sec (22.0-30.0); Prothrombin Time 9.4 sec (9.0-12.0)
[2020-05-15 13:14] LABS: Band Neutrophils % 4 %; Eosinophils # (M) 0.02 k/uL (0-0.7); Lymphocytes # (M) 0.72 k/uL (1.0-4.8); Monocytes # (M) 0.34 k/uL (0-1.0); Myelocytes # (M) 0.03 k/uL (0); Myelocytes % 2 %; Neutrophils % (M) 27 %; Nucleated Red Blood Cells 0 /100 WBC (0-0); Total Cells Counted 100
[2020-05-15 13:15] LABS: Poikilocytosis (M) Present
[2020-05-15] MEDS ORDERED: PIPERACILLIN-TAZOBACTAM 3.375 GM in SODIUM CHLORIDE 0.9% 100 ML IVPB STA (13:17)
[2020-05-15] MEDS ORDERED: SODIUM CHLORIDE 0.9% 500 ML 500 ML IV ONE (13:32)
--- NOTE | 2020-05-15 14:34 | CT ---
EXAMINATION TYPE: CT abdomen pelvis w con DATE OF EXAM: 05/15/2020 COMPARISON: CT April 20, 2020 and older studies. PET/CT April 09, 2019. HISTORY: rlq pain history of lymphoma. CT DLP: 3474.4 mGycm, Automated Exposure Control for Dose Reduction was Utilized. CONTRAST: CT scan of the abdomen and pelvis is performed without oral but with IV Contrast, patient injected wi th 100 mL of Isovue 300. FINDINGS: LUNG BASES: No significant abnormality is appreciated. LIVER/GB: Liver remains markedly hypodense consistent with diffuse fatty infiltration. Dependent smal l calcified gallstones are present. PANCREAS: No significant abnormality is seen. SPLEEN: No significant abnormality is seen. ADRENALS: No significant abnormality is seen. KIDNEYS: Persistent cortical thinning and diminished size to right kidney with severe hydronephrosis and delayed excretion. Persistent hydroureter up to the right pelvis. BOWEL: No significant abnormality is seen. PROSTATE/SEMINAL VESICLES: No gross abnormality seen. LYMPH NODES: No greater than 1cm abdominal or pelvic lymph nodes are appreciated. OSSEOUS STRUCTURES: No significant abnormality is seen. OTHER: Large heterogeneous right iliac mass redemonstrated measuring roughly 11.5 x 10.5 cm axial chelsi ge 67 x 13.8 cm craniocaudal dimension coronal image 75. Lesions stable or slightly larger versus mos t recent CT. Hyperdense and/or calcific density along the inferior right aspect axial image 74 remain s present. Additional lobulated depositing anterior-inferior to the posterior to the right rectus mus villa measures 6.9 x 4.1 cm image 81 without larger versus most recent CT. Local mass effect is present . Indistinct fat plane from the adjacent rectus muscle redemonstrated. There are additional prominent but predominantly subcentimeter retroperitoneal lymph nodes in the abdomen, the reference aortocaval lymph node measures 14 x 13 mm current study axial image 38 versus 12 x 11 mm prior study. IMPRESSION: Persistent severe right-sided hydronephrosis with delayed excretion due to mass effect fr om right pelvic mass comma suspected adenopathy. Hyperdense and/or calcific material could reflect at tempts at treated neoplasm and/or obstructing calculus related to urinary stasis. Continued progressi on in size of mass lesions or adenopathy noted.
[2020-05-15 14:35] LABS: Appearance,Urine Clear (Clear); Bilirubin,Urine Negative (Negative); Blood,Urine Negative (Negative); Color,Urine Yellow; Glucose,Urine (UA) Negative (Negative); Ketones,Urine Negative (Negative); Leukocyte Esterase,Urine Negative (Negative); Nitrite,Urine Negative (Negative); PH, Urine 6.5 (5.0-8.0); Protein,Urine Negative (Negative); Specific Gravity,Urine 1.038 (1.001-1.035); Urobilinogen,Urine <2.0 mg/dL (<2.0)
[2020-05-15] MEDS ORDERED: CEFEPIME 2 GM in SODIUM CHLORIDE 0.9% 100 ML IVPB STA (14:51)
[2020-05-15] MEDS ORDERED: VANCOMYCIN IV PER PHARMACY 1 EACH MISC MISCELLANE PRN (14:51)
[2020-05-15] MEDS ORDERED: VANCOMYCIN 2,000 MG in SODIUM CHLORIDE 0.9% 500 ML 500 ML IVPB STA (14:56)
[2020-05-15] MEDS ORDERED: NALOXONE 0.4 MG/ML 1 ML VIAL IV PRN (15:00)
[2020-05-15] MEDS: SODIUM CHLORIDE 0.9% 1,000 ML IV SCH (15:13)
[2020-05-15] MEDS ORDERED: ACETAMINOPHEN TAB 325 MG TAB PO PRN (19:33)
[2020-05-15] MEDS: HYDROmorphone 1 MG/ML 1 ML SYRINGE IVP PRN (19:51)
[2020-05-16] MEDS: HYDROmorphone 1 MG/ML 1 ML SYRINGE IVP PRN ×5 (01:22→21:25)
[2020-05-16] MEDS: VANCOMYCIN 2,000 MG in SODIUM CHLORIDE 0.9% 500 ML 500 ML IVPB SCH ×2 (03:32→14:18)
[2020-05-16] MEDS: SODIUM CHLORIDE 0.9% 1,000 ML IV SCH ×2 (03:33→17:40)
[2020-05-16 04:11] LABS: African American GFR (CKD) >90 (>60 ml/min/1.73 sqM); Non-African American GFR(CKD) 85 (>60 ml/min/1.73 sqM)
[2020-05-16] MEDS ORDERED: ONDANSETRON 4 MG TAB PO PRN (08:49)
[2020-05-16] MEDS ORDERED: CEFEPIME 1 GM in SODIUM CHLORIDE 0.9% 50 ML IVPB SCH (09:00)
[2020-05-16] MEDS: SERTRALINE 100 MG TAB PO SCH (10:18)
[2020-05-16] MEDS: busPIRone HCl 10 MG TAB PO SCH ×2 (10:18→20:41)
[2020-05-16] MEDS: QUEtiapine 25 MG TAB PO SCH ×2 (10:20→17:42)
--- NOTE | 2020-05-16 10:26 | HP ---
HISTORY AND PHYSICAL A 55-year-old white male who was admitted with severe abdominal pain, showed severe hydronephrosis, due to possible tumor pushing on his kidney. He is on Dilaudid for pain medicines, he was given chemotherapy less than 2 weeks ago. He has also been having some pain over the right upper chest that keeps breaking open, much better than before, but it is still breaking open. He has had this wound on his chest for over a year, but due to acute abdominal pain and fever and neutropenic fever, he was admitted to the hospital. HOME MEDICATIONS: Strattera 80 daily, Seroquel 100 daily, BuSpar 30 b.i.d., Zofran 4 mg q.4 hours p.r.n., Seroquel XR 150 daily, Zoloft 200 daily. ALLERGIES: ADHESIVE TAPE, LATEX, RAGWEED, POLLEN. 14 POINT REVIEW OF SYSTEMS: Negative except for as mentioned in HPI. PAST MEDICAL HISTORY: Non-Hodgkin's lymphoma, MRSA. SURGERIES: Colonoscopy, lymph node biopsy, right chest Port-A-Cath, ADHD, anxiety, bipolar depression. Current everyday smoker, vapor, occasional alcohol and marijuana. FAMILY HISTORY: Father healthy 82 years old, mother negative. Temp 99.9, O2 is 100 to 119, respiratory rate is 18 to 22, blood pressure is 112 to 130/70s to 80s, O2 is 97%-98%. CARDIOVASCULAR: S1, S2. LUNGS: Scattered wheeze x4. HEMATOLOGY: Negative Homans. PSYCH: Fair mood and affect. NEUROLOGIC: Alert and orient x3. OPHTHALMOLOGIC: Pupils equal, round, reactive to light and accommodation. ASSESSMENT: A 55-year-old male with some abdominal pain, chemotherapy for non-Hodgkin's lymphoma. Severe Neutrophilic sepsis, lactic acidosis, enlarging abdominal, non-Hodgkin's lymphoma causing severe hydronephrosis. Cefepime and vancomycin have been given. Dr. Dyer consult for chest wound and neutropenic fever. Possibly Urology consult for marked hydronephrosis. MMODL / IJN: [id number] /
[2020-05-16] MEDS: Atomoxetine Hcl [Strattera] 80 MG PO SCH (10:32)
--- NOTE | 2020-05-16 10:42 | PN ---
PROGRESS NOTE A 55-year-old white male with abdominal pain and fever, severe hydronephrosis. Discussed with him getting a renal physician to possibly put a stent in there due to severe hydronephrosis, if it is affecting his urine due to increased tumor burden. Also Dr. Dyer consult for neutropenic sepsis and chest wall wound. CARDIOVASCULAR: S1, S2. LUNGS: Scattered rhonchi and wheeze, minimal. PSYCH: Fair mood and affect. ASSESSMENT: 1. Neutropenic sepsis. 2. Non-Hodgkin's lymphoma. 3. Worsening right lower quadrant abdominal pain. Start Dilaudid, please see further orders. PROGNOSIS: Guarded. Continue with cefepime, vancomycin, IV antibiotics, Dilaudid for pain and consult as mentioned above. MMODL / IJN: [id number] /
[2020-05-16] MEDS: FILGRASTIM-SNDZ 480 MCG/0.8 ML SYRINGE SQ SCH (11:33)
[2020-05-16 12:00] LABS: Anisocytosis Slight; HCT 37.5 % (39.0-53.0); HGB 12.1 gm/dL (13.0-17.5); MCH 30.6 pg (25.0-35.0); MCHC 32.4 g/dL (31.0-37.0); MCV 94.6 fL (80.0-100.0); Mean Platelet Volume 7.3; Platelet Count 192 k/uL (150-450); RBC 3.96 m/uL (4.30-5.90); RDW 16.4 % (11.5-15.5)
[2020-05-16 12:06] LABS: WBC 1.4 k/uL (3.8-10.6)
[2020-05-16 12:59] LABS: Neutrophils % (M) 30 %
[2020-05-16 13:00] LABS: Basophils # (M) 0.01 k/uL (0-0.2); Eosinophils # (M) 0.01 k/uL (0-0.7); Lymphocytes # (M) 0.43 k/uL (1.0-4.8); Metamyelocytes # (M) 0.03 k/uL (0); Metamyelocytes % 2 %; Monocytes # (M) 0.48 k/uL (0-1.0); Myelocytes # (M) 0.01 k/uL (0); Myelocytes % 1 %; Neutrophils # (M) 0.42 k/uL (1.3-7.7); Nucleated Red Blood Cells 0 /100 WBC (0-0); Total Cells Counted 100
--- NOTE | 2020-05-16 19:23 | P.GSCN ---
History of Present Illness Consult date: 05/16/20 Reason for Consult: Right hydronephrosis History of present illness: The patient is a 55-year-old male with a history of stage IV non-Hodgkin's lymphoma who was admitted on 05/15 for evaluation and treatment of a neutropenic fever. At the time of his admission his white blood count was 400 and his lactic acid was 3.4. CT scan of the abdomen and pelvis identified an atrophic right kidney with right hydroureteronephrosis secondary to a mass present in the right pelvis. White blood count this morning was 1,400. I was asked to see the patient for further evaluation. The patient was diagnosed with non-Hodgkin's lymphoma in early 2018. CT scan of the abdomen and pelvis in 12/2018 showed evidence of right hydroureteronephrosis and a right pelvic mass. The mass appeared to be causing the ureteral obstruction. The patient has been treated with several rounds of chemotherapy and most recently underwent treatment 2 weeks ago. He is unaware as to the type of chemotherapy he most recently was given. CT scan on 04/20/2020 showed a 10-12 mm diameter mass in the right pelvis which had progressed from a CT scan performed earlier in the year. The most recent CT scan showed no significant change in the size of the mass for the degree of right hydronephrosis. There is right renal atrophy which has been present on previous CT scans as well. The patient says that his main complaint is discomfort which is located in the right groin, right scrotum and right lateral leg. He has previously undergone a scrotal ultrasound which showed no abnormality of the right testicle. He denies any significant abdominal or flank pain. He has complained of some recent constipation and has had no bowel movement in the last 2 days. He denies any voiding difficulty. Review of Systems - Constitutional Reports fever - Cardiovascular Denies shortness of breath - Respiratory Denies cough - Gastrointestinal Reports as per HPI, Denies nausea, Denies vomiting - Genitourinary Reports as per HPI Past Medical History Past Medical History: Cancer Additional Past Medical History / Comment(s): Non hodgkins lymphoma. Right chest wall port a cath infection.removed) chemo, History of Any Multi-Drug Resistant Organisms: MRSA Year Discovered:: 06/03/19 MDRO Source:: chest wall Past Surgical History: No Surgical Hx Reported Additional Past Surgical History / Comment(s): Colonoscopy, lymph node biopsy. right chest port a cath removed. Past Anesthesia/Blood Transfusion Reactions: No Reported Reaction Additional Past Anesthesia/Blood Transfusion Reaction / Comm: Pt has received blood in past without reaction. Past Psychological History: ADD/ADHD, Anxiety, Bipolar, Depression Additional Psychological History / Comment(s): Manic. single. lives with family. No travel. No experience. Does not work outside of the home. single lives with family Smoking Status: Current every day smoker, Vaper Past Alcohol Use History: Occasional Additional Past Alcohol Use History / Comment(s): STARTED SMOKING AT AGE 14 HAS QUIT ON AND OFF CURRENTLY SMOKING 1/2PPD Past Drug Use History: Marijuana Additional Drug Use History / Comment(s): instructed to hold 24 hrs prior to procedure - Past Family History Father Additional Family Medical History / Comment(s): Father is healthy and is 82 yrs old. Mother Family Medical History: No Reported History Additional Family Medical History / Comment(s): Mother from dementia. Medications and Allergies Home Medications Medication Instructions Recorded Confirmed Type Atomoxetine HCl [Strattera] 80 mg PO QAM 08/31/19 05/15/20 History QUEtiapine [SEROquel] 100 mg PO HS 08/31/19 05/15/20 History busPIRone HCL [Buspar] 30 mg PO BID 08/31/19 05/15/20 History Ondansetron [Zofran] 4 mg PO Q4H PRN 05/15/20 05/15/20 History QUEtiapine XR [SEROquel XR] 150 mg PO DAILY 05/15/20 05/15/20 History Sertraline [Zoloft] 200 mg PO DAILY 05/15/20 05/15/20 History Allergies Allergy/AdvReac Type Severity Reaction Status Date / Time adhesive tape Allergy RED SKIN Verified 05/15/20 13:45 AND BLISTERS latex Allergy Rash/Hives Verified 05/15/20 13:45 ragweed pollen Allergy Wheezing Verified 05/15/20 13:45 Surgical - Exam Vital Signs Temp Pulse Resp BP Pulse Ox 99.9 F H 119 H 22 130/71 97 05/15/20 11:53 05/15/20 11:53 05/15/20 11:53 05/15/20 11:53 05/15/20 11:53 - General well developed, well nourished, no distress, obese - Respiratory other (There is scarring and an ulcerated area in the right pectoral skin consistent with skin slough from extravasated chemotherapy.) - Abdomen Abdomen: soft, non tender, no organomegaly Hernia: none - Genitourinary normal penis with no external lesions, testicles non-tender Results I personally reviewed the patient's most recent CT scan and compared it with CT's performed earlier this year and in 12/2018. The patient's right hydronephro sis appears to be from extrinsic compression of the right ureter near the right pelvic brim related to the large right pelvic mass. Unfortunately the mass appears to have progressed in size despite chemotherapy. The patient's right groin and leg pain may be related to nerve irritation from the location of the mass. I explained to the patient that removal of the mass via surgery is not an option as he has other areas of lymphoma. Placement of a right double-J catheter is unlikely to result in any improvement in his groin or leg pain and will most likely result in no significant improvement in his renal function as the obstruction is long-standing. At least at this time I do not feel that further urologic evaluation is necessary. - Labs 05/16/20 11:23 05/16/20 03:51 Abnormal Lab Results - Last 24 Hours (Table) 05/15/20 05/15/20 05/16/20 Range/Units 18:55 21:45 01:12 WBC (3.8-10.6) k/uL RBC (4.30-5.90) m/uL Hgb (13.0-17.5) gm/dL Hct (39.0-53.0) % RDW (11.5-15.5) % Neutrophils # (Manual) (1.3-7.7) k/uL Lymphocytes # (Manual) (1.0-4.8) k/uL Metamyelocytes # (Man) (0) k/uL Myelocytes # (Manual) (0) k/uL Plasma Lactic Acid Marcos 2.2 H* 2.2 H* 2.8 H* (0.7-2.0) mmol/L 05/16/20 05/16/20 05/16/20 Range/Units 03:51 06:49 11:23 WBC 1.4 L* (3.8-10.6) k/uL RBC 3.96 L (4.30-5.90) m/uL Hgb 12.1 L (13.0-17.5) gm/dL Hct 37.5 L (39.0-53.0) % RDW 16.4 H (11.5-15.5) % Neutrophils # (Manual) 0.42 L* (1.3-7.7) k/uL Lymphocytes # (Manual) 0.43 L (1.0-4.8) k/uL Metamyelocytes # (Man) 0.03 H (0) k/uL Myelocytes # (Manual) 0.01 H (0) k/uL Plasma Lactic Acid Marcos 2.6 H* 2.3 H* (0.7-2.0) mmol/L Microbiology - Last 24 Hours (Table) 05/15/20 12:41 Blood Culture - Preliminary Blood No Growth after 24 hours Diabetes panel 05/16/20 Range/Units 03:51 Creatinine 0.99 (0.66-1.25) mg/dL Pituitary panel 05/16/20 Range/Units 03:51 Creatinine 0.99 (0.66-1.25) mg/dL Adrenal panel 05/16/20 Range/Units 03:51 Creatinine 0.99 (0.66-1.25) mg/dL
[2020-05-16] MEDS: QUEtiapine 100 MG TAB PO SCH (20:41)
[2020-05-16] MEDS ORDERED: CEFEPIME 2 GM in SODIUM CHLORIDE 0.9% 50 ML IVPB SCH (21:00)
[2020-05-16] MEDS: CEFEPIME 2 GM in SODIUM CHLORIDE 0.9% 100 ML IVPB SCH (21:18)
--- NOTE | 2020-05-16 21:57 | P.CONS ---
History of Present Illness - Reason for Consult Consult date: 05/16/20 Neutropenic Fever Requesting physician: Jaycob Sahu - Chief Complaint Fever - History of Present Illness Mister Lamb is a pleasant white male who is well known to our practice for treatment of his Peripheral- T Cell Lymphoma (PTCL), Primary Oncologist Dr. Dennys Zafar. Initially seen in consult on 12/15/18. Right supraclavicular lymph node biopsy on 12/16/18, Results indicated Hodgkin lymphoma versus anaplastic T-cell lymphoma. This was sent to the [facility] for a consultation. 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 ALK testing was negative. Be an T-cell rearrangement studies were ordered. Surprisingly B cell gene rearrangement, IGH an IgG daily for clonal, while T- cell rearrangements were negative. Despite the gene rearrangement studies, it was the opinion of the consulting pathologist at the [facility] that the morphologic and IHC characteristics best supported a PTCL. Bone marrow aspiration biopsy on 01/15/19. His bone marrow showed significant involvement with lymphoma. Gene rearrangement studies did not show B or T cell markers!! Started inpatient [facility] on 02/07/19. His stay was complicated by extravasation of chemo causing soft tissue damage in the rt upper chest wall.Fortunately there was no deep tissue necrosis, and this was treated supportively. He continued chemo with a LUE PICC line. In June of 2019 the patient was seen at the [facility] by Dr. Pierson and case reviewed. It was recommended that the patient did have a significant response, and should continue with the chemotherapy, with Cytoxan/Adriamycin/Brentuximab/Prednisone combination targeting CD30. The patient had also been referred to bone marrow transplant at the [facility] and was ultimately seen there on 07/27/19. They informed us that his biopsy from the right iliac lymph node had been obtained and reviewed at the [facility]. the report was formalized after his consultation there in 06/24, and had indicated that this was actually a B-cell lymphoma! His slides from his other biopsies were requested for comparison at the [facility]. His prior slides were subsequently received and reviewed at the [facility]. Case was d iscussed with the pathologist. 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 Chest wall lesion continued to improve and healing was finally felt to be satisfactory by 03/25. He resumed CHP-Adcetris on 04/12/20 (2 of 4) 05/01/20: Status Post C3 CHP Adentris with Neulasta. He was evaluated by Dr. Zafar on 05/15/20. During this visit he was complaining of increased pain. It was initially difficult to get an accurate idea of his symptoms as the patient was quite anxious and hyper verbal. On Additional questioning it appears that the chest wall pain was superficial and related to the slight increase in the ulce rated area. - The abdominal pain appears to be more difficult to define, on exam clinical evidence of tenderness. CBC the showed normal hemoglobin and platelets, but wbc is low at 1.61. Patient was therefore referred to the ER for evaluation and imaging, especially to check for any evidence of neutropenic colitis and/or progression of malignancy itself. On hospital admission T-max 100F, Byrne Cultures, CT abdomen and Pelvis. CT revealed progression in adenopathy and persistent Right hydronephrosis with mass effect. Neutrophils 0.4 and since the allocated timeframe from he was given neulasta has been significant growth factor was ordered, as well as, broad spectrum antibiotics. Dr. Dyer from infectious disease was consulted and Dr. Marroquin from urology has also seen and evaluated this patient. Admission llactic acid was 3.4. CT scan of the abdomen and pelvis identified an atrophic right kidney with right hydroureteronephrosis secondary to a mass present in the right pelvis. Prior CT revealed stable size of the mass for the right hydronephrosis,as well as the right renal atrophy. During this mornings interaction he continues to complain of discomfort at the right scrotum and upper outer thigh. He denies any dysuria or blood in urine or stool. No nausea or vomiting. Review of Systems All systems: negative (HPI) Past Medical History Past Medical History: Cancer Additional Past Medical History / Comment(s): Non hodgkins lymphoma. Right chest wall port a cath infection.removed) chemo, History of Any Multi-Drug Resistant Organisms: MRSA Year Discovered:: 06/03/19 MDRO Source:: chest wall Past Surgical History: No Surgical Hx Reported Additional Past Surgical History / Comment(s): Colonoscopy, lymph node biopsy. right chest port a cath removed. Past Anesthesia/Blood Transfusion Reactions: No Reported Reaction Additional Past Anesthesia/Blood Transfusion Reaction / Comm: Pt has received bl ood in past without reaction. Past Psychological History: ADD/ADHD, Anxiety, Bipolar, Depression Additional Psychological History / Comment(s): Manic. single. lives with family. No travel. No experience. Does not work outside of the home. single lives with family Smoking Status: Current every day smoker, Vaper Past Alcohol Use History: Occasional Additional Past Alcohol Use History / Comment(s): STARTED SMOKING AT AGE 14 HAS QUIT ON AND OFF CURRENTLY SMOKING 1/2PPD Past Drug Use History: Marijuana Additional Drug Use History / Comment(s): instructed to hold 24 hrs prior to procedure - Past Family History Father Additional Family Medical History / Comment(s): Father is healthy and is 82 yrs old. Mother Family Medical History: No Reported History Additional Family Medical History / Comment(s): Mother from dementia. Medications and Allergies Home Medications Medication Instructions Recorded Confirmed Type Atomoxetine HCl [Strattera] 80 mg PO QAM 08/31/19 05/15/20 History QUEtiapine [SEROquel] 100 mg PO HS 08/31/19 05/15/20 History busPIRone HCL [Buspar] 30 mg PO BID 08/31/19 05/15/20 History Ondansetron [Zofran] 4 mg PO Q4H PRN 05/15/20 05/15/20 History QUEtiapine XR [SEROquel XR] 150 mg PO DAILY 05/15/20 05/15/20 History Sertraline [Zoloft] 200 mg PO DAILY 05/15/20 05/15/20 History Allergies Allergy/AdvReac Type Severity Reaction Status Date / Time adhesive tape Allergy RED SKIN Verified 05/15/20 13:45 AND BLISTERS latex Allergy Rash/Hives Verified 05/15/20 13:45 ragweed pollen Allergy Wheezing Verified 05/15/20 13:45 Physical Exam Vitals: Vital Signs Temp Pulse Resp BP Pulse Ox 05/16/20 16:00 86 17 05/16/20 12:06 98.7 F 89 17 155/84 97 05/16/20 08:00 88 16 05/16/20 05:21 98.2 F 84 16 167/94 97 Intake and Output 05/16/20 05/16/20 05/16/20 06:59 14:59 22:59 Intake Total 1370 1870 700 Balance 1370 1870 700 Intake: Intake, IV Titration 1250 1200 100 Amount Cefepime 2 gm In Sodium 100 100 Chloride 0.9% 100 ml @ 25 mls/hr IVPB Q12HR DA Rx #:[id number] Sodium Chloride 0.9% 1, 750 600 000 ml @ 75 mls/hr IV . [id number] DA Rx#:[id number] Vancomycin 2,000 mg In 500 500 Sodium Chloride 0.9% 500 ml 500 ml @ 167 mls/hr IVPB Q12H DA Rx#: [id number] Oral 120 670 600 Other: Voiding Method Urinal Urinal Urinal # Voids 2 4 4 # Bowel Movements 0 0 General: Alert and Oriented x3, No Acute Distress Head: Normocytic, Atraumatic Neck: Supple Mouth: No Lesions, No Thrush Eyes: Non-sclerotic No Palpable cervical, supraclavicular, axillary adenopathy Heart: Regular Rate, Regular Rhythm Lungs: Clear to Ausculations, No Wheeze, No Rhonchi, Diminishe bilateral lower lobes, No increased respiratory effort noted Abdomen: Soft, Non-Distended, Non-Tended, BSx4 Extremities: No Edema, Equal Strength Neurological: No Focal Defects: No sensory or motor deficits noted Psych: Calm and cooperative Results CBC & Chem 7: 05/16/20 11:23 05/16/20 03:51 Labs: Abnormal Lab Results - Last 24 Hours (Table) 05/15/20 05/16/20 05/16/20 Range/Units 21:45 01:12 03:51 WBC (3.8-10.6) k/uL RBC (4.30-5.90) m/uL Hgb (13.0-17.5) gm/dL Hct (39.0-53.0) % RDW (11.5-15.5) % Neutrophils # (Manual) (1.3-7.7) k/uL Lymphocytes # (Manual) (1.0-4.8) k/uL Metamyelocytes # (Man) (0) k/uL Myelocytes # (Manual) (0) k/uL Plasma Lactic Acid Marcos 2.2 H* 2.8 H* 2.6 H* (0.7-2.0) mmol/L 05/16/20 05/16/20 Range/Units 06:49 11:23 WBC 1.4 L* (3.8-10.6) k/uL RBC 3.96 L (4.30-5.90) m/uL Hgb 12.1 L (13.0-17.5) gm/dL Hct 37.5 L (39.0-53.0) % RDW 16.4 H (11.5-15.5) % Neutrophils # (Manual) 0.42 L* (1.3-7.7) k/uL Lymphocytes # (Manual) 0.43 L (1.0-4.8) k/uL Metamyelocytes # (Man) 0.03 H (0) k/uL Myelocytes # (Manual) 0.01 H (0) k/uL Plasma Lactic Acid Marcos 2.3 H* (0.7-2.0) mmol/L Microbiology - Last 24 Hours (Table) 05/15/20 12:41 Blood Culture - Preliminary Blood No Growth after 24 hours Chest x-ray: report reviewed CT scan - abdomen: report reviewed CT scan - pelvis: report reviewed Assessment and Plan Plan: Assessment and Recommendations: Lymphoma: See HPI for full history of diagnosis and prior treatments - CUrrently on treatment with CHP adentris status post cycle 3 on 05/01/20 Neutropenic Fever: - Byrne cultures pending - ID is following - Growth Factor initiated as it has been 14 days since he received udencya - Broad spectrum antibiotics Persistent Right Hydronephrosis caused from progressive Mass Effect: - Urology has seen and evaluated this patient - Will await recommendations Right inguinal and leg pain: - COntinue symptom management and supportive care Thank you for allowing us to participate in the care of this patient, we will follow along with you Physician Attest: I have completed the full history and physical and agree with above dictation, dictated as a scribe
--- NOTE | 2020-05-17 00:14 | P.CONS ---
History of Present Illness - Reason for Consult Consult date: 05/16/20 Neutropenic sepsis Requesting physician: Randy Leroy - Chief Complaint Right lower abdominal and groin pain x days - History of Present Illness Patient is a 55 in male with a past medical history significant for stage IV non-Hodgkin lymphoma that was diagnosed only 2018 and this patient did have CT of abdominal pelvis in December 2018 with tissues evidence of right [place] ureter nephrosis with a right pelvic mass patient has been treated with several rounds of chemotherapy last has been about 2 weeks ago patient is now presenting to [facility] ER with chief complaints of pain to the right groin and pelvic area the pain has been getting worse for the last few days patient described the pain to be more visual and times a day leaking with associated swelling but no open wound or any drainage patient is having a low-grade fever on arrival to the ER the patient did have fever of 99.9F patient did have a white count of 1.6 thousand, the patient did have elevated lactic acid the patient did have a chest x-ray that was reported negative for any pneumonia you has been negative patient did have CT of abdominal pelvis CT shows persistent severe right-sided hydronephrosis due to mass effect from the right pelvic mass patient was started on vancomycin and cefepime with concern for neutropenic sepsis infection disease was consulted for further management of antibiotic therapy Review of Systems Positive point has been mentioned in the HPI rest of the systems are negative Past Medical History Past Medical History: Cancer Additional Past Medical History / Comment(s): Non hodgkins lymphoma. Right chest wall port a cath infection.removed) chemo, History of Any Multi-Drug Resistant Organisms: MRSA Year Discovered:: 06/03/19 MDRO Source:: chest wall Past Surgical History: No Surgical Hx Reported Additional Past Surgical History / Comment(s): Colonoscopy, lymph node biopsy. right chest port a cath removed. Past Anesthesia/Blood Transfusion Reactions: No Reported Reaction Additional Past Anesthesia/Blood Transfusion Reaction / Comm: Pt has received blood in past without reaction. Past Psychological History: ADD/ADHD, Anxiety, Bipolar, Depression Additional Psychological History / Comment(s): Manic. single. lives with family. No travel. No experience. Does not work outside of the home. single lives with family Smoking Status: Current every day smoker, Vaper Past Alcohol Use History: Occasional Additional Past Alcohol Use History / Comment(s): STARTED SMOKING AT AGE 14 HAS QUIT ON AND OFF CURRENTLY SMOKING 1/2PPD Past Drug Use History: Marijuana Additional Drug Use History / Comment(s): instructed to hold 24 hrs prior to procedure - Past Family History Father Additional Family Medical History / Comment(s): Father is healthy and is 82 yrs old. Mother Family Medical History: No Reported History Additional Family Medical History / Comment(s): Mother from dementia. Medications and Allergies Home Medications Medication Instructions Recorded Confirmed Type Atomoxetine HCl [Strattera] 80 mg PO QAM 08/31/19 05/15/20 History QUEtiapine [SEROquel] 100 mg PO HS 08/31/19 05/15/20 History busPIRone HCL [Buspar] 30 mg PO BID 08/31/19 05/15/20 History Ondansetron [Zofran] 4 mg PO Q4H PRN 05/15/20 05/15/20 History QUEtiapine XR [SEROquel XR] 150 mg PO DAILY 05/15/20 05/15/20 History Sertraline [Zoloft] 200 mg PO DAILY 05/15/20 05/15/20 History Allergies Allergy/AdvReac Type Severity Reaction Status Date / Time adhesive tape Allergy RED SKIN Verified 05/15/20 13:45 AND BLISTERS latex Allergy Rash/Hives Verified 05/15/20 13:45 ragweed pollen Allergy Wheezing Verified 05/15/20 13:45 Physical Exam Vitals: Vital Signs Temp Pulse Pulse Resp BP BP Pulse Ox 05/16/20 12:06 98.7 F 89 17 155/84 97 05/16/20 05:21 98.2 F 84 16 167/94 97 05/15/20 20:25 98.5 F 100 16 136/83 95 05/15/20 18:26 98.2 F 100 18 154/78 95 05/15/20 18:05 99 18 120/65 96 05/15/20 15:17 98.5 F 94 18 148/79 95 05/15/20 13:43 100 18 112/85 98 Intake and Output 05/15/20 05/16/20 05/16/20 22:59 06:59 14:59 Intake Total 120 1370 Balance 120 1370 Intake: Intake, IV Titration 1250 Amount Sodium Chloride 0.9% 1, 750 000 ml @ 75 mls/hr IV . [id number] DA Rx#:[id number] Vancomycin 2,000 mg In 500 Sodium Chloride 0.9% 500 ml 500 ml @ 167 mls/hr IVPB Q12H DA Rx#: [id number] Oral 120 120 Other: Voiding Method Urinal # Voids 1 2 # Bowel Movements 0 Weight 138.346 kg GENERAL DESCRIPTION: Middle-aged male lying in bed, no distress. No tachypnea or accessory muscle of respiration use. HEENT: Shows Pallor , no scleral icterus. Oral mucous membrane is dry. No pharyngeal erythema or thrush NECK: Trachea central, no thyromegaly. LUNGS: Unlabored breathing. Clear to auscultation anteriorly. No wheeze or crack le. HEART: S1, S2, regular rate and rhythm. No loud murmur ABDOMEN: Soft, no tenderness , guarding or rigidity, no organomegaly EXTREMITIES: No edema of feet. SKIN: No rash, no masses palpable. NEUROLOGICAL: The patient is awake, alert, oriented x3, mood and affect normal. Results CBC & Chem 7: 05/16/20 11:23 05/16/20 03:51 Labs: Abnormal Lab Results - Last 24 Hours (Table) 05/15/20 05/15/20 05/15/20 Range/Units 12:41 12:41 12:41 WBC 1.6 L (3.8-10.6) k/uL RBC 4.00 L (4.30-5.90) m/uL Hgb 12.1 L (13.0-17.5) gm/dL Hct 37.1 L (39.0-53.0) % RDW 16.2 H (11.5-15.5) % Neutrophils # (Manual) 0.40 L* (1.3-7.7) k/uL Lymphocytes # (Manual) 0.72 L (1.0-4.8) k/uL Myelocytes # (Manual) 0.03 H (0) k/uL Glucose 139 H (74-99) mg/dL Plasma Lactic Acid Marcos 3.4 H* (0.7-2.0) mmol/L Total Protein 6.2 L (6.3-8.2) g/dL Ur Specific [place] (1.001-1.035) 05/15/20 05/15/20 05/15/20 Range/Units 14:27 15:47 18:55 WBC (3.8-10.6) k/uL RBC (4.30-5.90) m/uL Hgb (13.0-17.5) gm/dL Hct (39.0-53.0) % RDW (11.5-15.5) % Neutrophils # (Manual) (1.3-7.7) k/uL Lymphocytes # (Manual) (1.0-4.8) k/uL Myelocytes # (Manual) (0) k/uL Glucose (74-99) mg/dL Plasma Lactic Acid Marcos 2.9 H* 2.2 H* (0.7-2.0) mmol/L Total Protein (6.3-8.2) g/dL Ur Specific [place] 1.038 H (1.001-1.035) 05/15/20 05/16/20 05/16/20 Range/Units 21:45 01:12 03:51 WBC (3.8-10.6) k/uL RBC (4.30-5.90) m/uL Hgb (13.0-17.5) gm/dL Hct (39.0-53.0) % RDW (11.5-15.5) % Neutrophils # (Manual) (1.3-7.7) k/uL Lymphocytes # (Manual) (1.0-4.8) k/uL Myelocytes # (Manual) (0) k/uL Glucose (74-99) mg/dL Plasma Lactic Acid Marcos 2.2 H* 2.8 H* 2.6 H* (0.7-2.0) mmol/L Total Protein (6.3-8.2) g/dL Ur Specific [place] (1.001-1.035) 05/16/20 05/16/20 Range/Units 06:49 11:23 WBC 1.4 L* (3.8-10.6) k/uL RBC 3.96 L (4.30-5.90) m/uL Hgb 12.1 L (13.0-17.5) gm/dL Hct 37.5 L (39.0-53.0) % RDW 16.4 H (11.5-15.5) % Neutrophils # (Manual) (1.3-7.7) k/uL Lymphocytes # (Manual) (1.0-4.8) k/uL Myelocytes # (Manual) (0) k/uL Glucose (74-99) mg/dL Plasma Lactic Acid Marcos 2.3 H* (0.7-2.0) mmol/L Total Protein (6.3-8.2) g/dL Ur Specific [place] (1.001-1.035) Assessment and Plan Assessment: 1- patient presented to hospital with right groin and lower abdominal pain in this patient who did have a history of non-Hodgkin lymphoma. CT did showed enlarging right thyroid mass with the CVS [place] ureter nephrosis this patient did have a low-grade fever and leukopenia source could be likely urinary with obstructive kidney however some of his low-grade fever could be related to enlarging tumor in the right pelvic area and concern for possible tumor necrosis (1) Neutropenic fever Current Visit: Yes Status: Acute Code(s): D70.9 - NEUTROPENIA, UNSPECIFIED; R50.81 - FEVER PRESENTING WITH CONDITIONS CLASSIFIED ELSEWHERE SNOMED Code(s): 625183726 Plan: 1-we will increase the dose of cefepime to 2 g every 12 hours and continue the vancomycin 2-Gentle IV fluid 3- await urology evaluation We will follow on clinical condition and cultures to further adjust medication if needed Thank you for this consultation will follow this patient with you Time with Patient: Greater than 30
[2020-05-17] MEDS: VANCOMYCIN 2,000 MG in SODIUM CHLORIDE 0.9% 500 ML 500 ML IVPB SCH ×2 (01:30→13:28)
[2020-05-17] MEDS: HYDROmorphone 1 MG/ML 1 ML SYRINGE IVP PRN ×5 (02:02→21:46)
[2020-05-17] MEDS: SODIUM CHLORIDE 0.9% 1,000 ML IV SCH ×2 (05:55→20:10)
[2020-05-17] MEDS: SERTRALINE 100 MG TAB PO SCH (07:58)
[2020-05-17] MEDS: busPIRone HCl 10 MG TAB PO SCH ×2 (07:58→20:09)
[2020-05-17] MEDS: QUEtiapine 25 MG TAB PO SCH ×2 (07:58→16:29)
[2020-05-17] MEDS: CEFEPIME 2 GM in SODIUM CHLORIDE 0.9% 100 ML IVPB SCH ×2 (07:58→20:09)
[2020-05-17] MEDS: Atomoxetine Hcl [Strattera] 80 MG PO SCH (07:59)
[2020-05-17 08:02] LABS: Anisocytosis Slight; Basophils % (A) 1 %; Eosinophils % (A) 0 %; HCT 35.6 % (39.0-53.0); HGB 11.7 gm/dL (13.0-17.5); Lymphocytes # (A) 0.7 k/uL (1.0-4.8); Lymphocytes % (A) 8 %; MCH 31.2 pg (25.0-35.0); MCHC 32.9 g/dL (31.0-37.0); MCV 94.8 fL (80.0-100.0); Macrocytosis Slight; Monocytes # (A) 0.7 k/uL (0-1.0); Monocytes % (A) 9 %; Neutrophils # (A) 6.6 k/uL (1.3-7.7); Neutrophils % (A) 80 %; Platelet Count 190 k/uL (150-450); RBC 3.76 m/uL (4.30-5.90); RDW 16.8 % (11.5-15.5); WBC 8.2 k/uL (3.8-10.6)
[2020-05-17] MEDS: FILGRASTIM-SNDZ 480 MCG/0.8 ML SYRINGE SQ SCH (08:05)
[2020-05-17 08:09] LABS: ALT 29 U/L (4-49); AST 44 U/L (17-59); African American GFR (CKD) >90 (>60 ml/min/1.73 sqM); Albumin 3.6 g/dL (3.5-5.0); Alkaline Phosphatase 59 U/L (38-126); Anion Gap 6 mmol/L; Blood Urea Nitrogen 10 mg/dL (9-20); Calcium 8.7 mg/dL (8.4-10.2); Carbon Dioxide 27 mmol/L (22-30); Chloride 106 mmol/L (98-107); Glucose 96 mg/dL (74-99); Magnesium 1.8 mg/dL (1.6-2.3); Non-African American GFR(CKD) 79 (>60 ml/min/1.73 sqM); Phosphorus 3.2 mg/dL (2.5-4.5); Sodium 139 mmol/L (137-145); Total Bilirubin 0.4 mg/dL (0.2-1.3); Total Protein 5.6 g/dL (6.3-8.2); Uric Acid 8.9 mg/dL (3.5-8.5)
[2020-05-17] MEDS ORDERED: VANCOMYCIN TROUGH DUE 1 EACH MISC MISCELLANE ONE (13:00)
[2020-05-17] MEDS: QUEtiapine 100 MG TAB PO SCH (20:09)
[2020-05-17] MEDS: SENNOSIDES-DOCUSATE SODIUM 1 EACH TAB PO SCH (20:09)
[2020-05-17] MEDS: allopurinoL 300 MG TAB PO SCH (20:14)
--- NOTE | 2020-05-17 20:19 | P.PN ---
Subjective Progress Note Date: 05/17/20 Principal diagnosis: Neutropenia and hydronephrosis Patient seen and evaluated this afternoon. He is complaining of pain, which has been worsening over the past week he stated. Objective - Vital Signs Vital signs: Vital Signs Temp 98.0 F 05/17/20 05:00 Pulse 98 05/17/20 05:00 Resp 20 05/17/20 05:00 BP 153/93 05/17/20 05:00 Pulse Ox 97 05/17/20 05:00 Intake & Output 05/16/20 05/17/20 05/17/20 18:59 06:59 18:59 Intake Total 2350 2310 220 Output Total 700 Balance 2350 2310 -480 Intake: Intake, IV Titration 1200 1350 Amount Cefepime 2 gm In Sodium 100 100 Chloride 0.9% 100 ml @ 25 mls/hr IVPB Q12HR DA Rx #:[id number] Sodium Chloride 0.9% 1, 600 750 000 ml @ 75 mls/hr IV . [id number] DA Rx#:[id number] Vancomycin 2,000 mg In 500 500 Sodium Chloride 0.9% 500 ml 500 ml @ 167 mls/hr IVPB Q12H DA Rx#: [id number] Oral 1150 960 220 Output: Urine 700 Other: Voiding Method Urinal Urinal Urinal # Voids 4 1 # Bowel Movements 0 - Exam General: Alert and Oriented x3, No Acute Distress Head: Normocytic, Atraumatic Neck: Supple Mouth: No Lesions, No Thrush Eyes: Non-sclerotic No Palpable cervical, supraclavicular, axillary adenopathy Heart: Regular Rate, Regular Rhythm Lungs: Clear to Ausculations, No Wheeze, No Rhonchi, Diminishe bilateral lower lobes, No increased respiratory effort noted Abdomen: Soft, Non-Distended, Non-Tended, BSx4 Extremities: No Edema, Equal Strength Neurological: No Focal Defects: No sensory or motor deficits noted Psych: Calm and cooperative - Labs CBC & Chem 7: 05/17/20 06:30 05/17/20 06:30 Labs: Abnormal Lab Results - Last 24 Hours (Table) 05/16/20 05/17/20 05/17/20 Range/Units 11:23 06:30 06:30 WBC 1.4 L* (3.8-10.6) k/uL RBC 3.96 L 3.76 L (4.30-5.90) m/uL Hgb 12.1 L 11.7 L (13.0-17.5) gm/dL Hct 37.5 L 35.6 L (39.0-53.0) % RDW 16.4 H 16.8 H (11.5-15.5) % Neutrophils # (Manual) 0.42 L* (1.3-7.7) k/uL Lymphocytes # 0.7 L (1.0-4.8) k/uL Lymphocytes # (Manual) 0.43 L (1.0-4.8) k/uL Metamyelocytes # (Man) 0.03 H (0) k/uL Myelocytes # (Manual) 0.01 H (0) k/uL Uric Acid 8.9 H (3.5-8.5) mg/dL Total Protein 5.6 L (6.3-8.2) g/dL IgG (700.0-1600.0) mg/dL 05/17/20 Range/Units 06:30 WBC (3.8-10.6) k/uL RBC (4.30-5.90) m/uL Hgb (13.0-17.5) gm/dL Hct (39.0-53.0) % RDW (11.5-15.5) % Neutrophils # (Manual) (1.3-7.7) k/uL Lymphocytes # (1.0-4.8) k/uL Lymphocytes # (Manual) (1.0-4.8) k/uL Metamyelocytes # (Man) (0) k/uL Myelocytes # (Manual) (0) k/uL Uric Acid (3.5-8.5) mg/dL Total Protein (6.3-8.2) g/dL IgG 310.0 L (700.0-1600.0) mg/dL Microbiology - Last 24 Hours (Table) 05/15/20 12:41 Blood Culture - Preliminary Blood No Growth after 24 hours Assessment and Plan Plan: Assessment and Recommendations: Lymphoma: See HPI for full history of diagnosis and prior treatments - Currently on treatment with CHP adentris status post cycle 3 on 05/01/20 - Recent CT inpatient question of tumor progression, a PET scan was initially ordered outpatient although insurance would not cover. If is unclear if this is true progression or not when reviewing the CT scan, a PET scan for re-staging will be ordred again as outpatient given the indeterminate CT findings for progression. Neutropenic Fever: Temperature only reached 100F, no fevers or increased temperature in 24 hours - This is technically not a "fever" and likely secondary to his underlying cancer. Although with the picture of neutropenia work-up was ordered. - Byrne cultures pending - ID is following - Growth Factor initiated as it has been 14 days since he received udencya - Broad spectrum antibiotics per ID - IgG is less than 500 although without evidence of actual infectious process will hold off on IVIG given its national shortage. Persistent Right Hydronephrosis caused from progressive Mass Effect: - Urology has seen and evaluated this patient - Will await recommendations Right inguinal, left back and leg pain: - Continue symptom management and supportive care - Add Bowel regimen with narcotic pain management - Senna S and miralax. PLan: - PET scan has been ordered as outpatient to further quantify changes of disease with current regimen, Clinically with pain progression is considered although a definitive picture is not clear with CT. - Await Urology input on hydronephrosis, if stent is needed, will need to ensure treatment is effective moving forward in order for stent to acheive goal of patency. Hence, PET scan is needed. 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
--- NOTE | 2020-05-17 20:59 | PN ---
PROGRESS NOTE DATE OF SERVICE: 05/17/2020 REASON FOR FOLLOWUP: Fever. INTERVAL HISTORY: Patient is currently afebrile, has been feeling better. The patient's pain to the right groin and pelvic pain has slightly decreased. No chest pain or cough. No nausea, vomiting. No abdominal pain or diarrhea. PHYSICAL EXAMINATION: Blood pressure 109/98 with a pulse of 101. Temperature 97. He is 94% on room air. General description: The patient is a middle-aged male up in the bed in no distress. Respiratory system: Unlabored breathing. Clear to auscultation anteriorly. Heart S1, S2. Regular rate and rhythm. Abdomen soft, no tenderness. LABS: Hemoglobin 11.2, white count 8.2, BUN of 10, creatinine 1.06. Vancomycin trough was 20.8. Blood cultures have been negative so far. DIAGNOSTIC IMPRESSION AND PLAN: Patient admitted to the hospital with fever and leukopenia with concern for possible Sepsis in this patient who did have a mass to the right pelvic area with obstruction to the right ureter and kidney. The patient leukopenia has resolved. Blood culture negative for any resistant pathogen. Discontinue the vancomycin to decrease risk of toxicity. Continue cefepime and monitor clinical course closely. MMODL / IJN: [id number] / MTDD
--- NOTE | 2020-05-17 23:21 | PN ---
PROGRESS NOTE The patient remains on pain medicine, cefepime for neutropenic fever. His white count is up to 8.2 with Zarxio medications. His hemoglobin was 11.7. Sodium was 139, potassium 4.0, BUN is 10, creatinine 1.06. Lactic acid down 1.8. Uric acid is up to 8.9. IgG is low at 310. He is seen by Urology today for severe hydronephrosis. CAT scan was reviewed of the abdomen. Urology said the right hydronephrosis appears to be from extrinsic compression of the right ureter near the right pelvic brim related to large right pelvic mass. Mass has progressed in size despite chemotherapy. Right groin and leg pain may be related to nerve irritation from location of the mass. Placement of a right double-J catheter is unlikely to result in improvement of his groin or leg pain and will result no significant improvement in his renal function due to obstruction long-standing. Dr. Dyer also saw the patient for neutropenic fever. White count was elevated to normal today. CARDIOVASCULAR: S1, S2. LUNGS: Clear. GI: Soft. INTEGUMENT: Right upper chest is open about quarter size. ASSESSMENT: 1. Non-Hodgkin's lymphoma, progressive. 2. Enlarging right mass. 3. Hydroureter. 4. Neutropenic sepsis. Cefepime 2 grams q.12 hours. Continue vancomycin and fluid. Urology possibly outpatient antibiotics will be set up shortly. He will be discharged hopefully and weaned off Dilaudid if possible for pain control. MMODL / IJN: [id number] /
[2020-05-18] MEDS ORDERED: VANCOMYCIN 1,750 MG in SODIUM CHLORIDE 0.9% 500 ML 500 ML IVPB SCH (02:00)
[2020-05-18] MEDS: HYDROmorphone 1 MG/ML 1 ML SYRINGE IVP PRN ×3 (04:17→13:01)
[2020-05-18] MEDS: CEFEPIME 2 GM in SODIUM CHLORIDE 0.9% 100 ML IVPB SCH ×2 (08:25→20:49)
[2020-05-18] MEDS: busPIRone HCl 10 MG TAB PO SCH ×2 (08:26→20:48)
[2020-05-18] MEDS: allopurinoL 300 MG TAB PO SCH (08:26)
[2020-05-18] MEDS: SENNOSIDES-DOCUSATE SODIUM 1 EACH TAB PO SCH ×2 (08:26→20:48)
[2020-05-18] MEDS: QUEtiapine 25 MG TAB PO SCH ×2 (08:26→17:29)
[2020-05-18] MEDS: SERTRALINE 100 MG TAB PO SCH (08:26)
[2020-05-18] MEDS: Atomoxetine Hcl [Strattera] 80 MG PO SCH (08:27)
[2020-05-18 09:24] LABS: ALT 26 U/L (4-49); AST 40 U/L (17-59); African American GFR (CKD) >90 (>60 ml/min/1.73 sqM); Albumin 3.8 g/dL (3.5-5.0); Alkaline Phosphatase 82 U/L (38-126); Anion Gap 8 mmol/L; Blood Urea Nitrogen 9 mg/dL (9-20); Calcium 8.9 mg/dL (8.4-10.2); Carbon Dioxide 26 mmol/L (22-30); Chloride 106 mmol/L (98-107); Glucose 118 mg/dL (74-99); LDH 1282 U/L (313-618); Magnesium 1.8 mg/dL (1.6-2.3); Non-African American GFR(CKD) 89 (>60 ml/min/1.73 sqM); Phosphorus 3.1 mg/dL (2.5-4.5); Sodium 140 mmol/L (137-145); Total Bilirubin 0.4 mg/dL (0.2-1.3); Total Protein 5.8 g/dL (6.3-8.2); Uric Acid 9.1 mg/dL (3.5-8.5)
[2020-05-18 09:27] LABS: Anisocytosis Slight; Basophils # (A) 0.1 k/uL (0-0.2); Basophils % (A) 1 %; Eosinophils % (A) 0 %; HCT 35.8 % (39.0-53.0); HGB 11.7 gm/dL (13.0-17.5); Lymphocytes # (A) 0.7 k/uL (1.0-4.8); Lymphocytes % (A) 5 %; MCH 30.9 pg (25.0-35.0); MCHC 32.8 g/dL (31.0-37.0); MCV 94.2 fL (80.0-100.0); Macrocytosis Slight; Mean Platelet Volume 6.9; Monocytes # (A) 0.7 k/uL (0-1.0); Monocytes % (A) 5 %; Neutrophils % (A) 89 %; Platelet Count 206 k/uL (150-450); RDW 17.3 % (11.5-15.5); WBC 15.7 k/uL (3.8-10.6)
[2020-05-18] MEDS: SODIUM CHLORIDE 0.9% 1,000 ML IV SCH (13:01)
[2020-05-18] MEDS ORDERED: HYDROmorphone 1 MG/ML 1 ML SYRINGE IVP PRN (16:40)
--- NOTE | 2020-05-18 16:41 | P.PN ---
Subjective Progress Note Date: 05/18/20 Principal diagnosis: Neutropenia and hydronephrosis WBC greater than 10, will stop growth factor. Pain is still quite persistent, he is asking for IV dilaudid q4 hours. Urology has no plans for stent placement at this time, and as far as progression of lymphoma goes, clinically it appears he is likely progressing, although with limited treatment options left we will need to be sure of what will work at controlling his disease. Therefore a PET scan has been scheduled outpatient for after discharge, in the interim though will need to control pain if no procedure can be done. If lymphoma cannot be controlled with treatment then stent will not be successful. Objective - Vital Signs Vital signs: Vital Signs Temp 98.0 F 05/18/20 14:43 Pulse 97 05/18/20 14:43 Resp 16 05/18/20 14:43 BP 110/83 05/18/20 14:43 Pulse Ox 97 05/18/20 14:43 Intake & Output 05/17/20 05/18/20 05/18/20 18:59 06:59 18:59 Intake Total 710 900 360 Output Total 700 800 Balance 10 900 -440 Intake: Intake, IV Titration 900 Amount Sodium Chloride 0.9% 1, 900 000 ml @ 75 mls/hr IV . [id number] DA Rx#:[id number] Oral 710 360 Output: Urine 700 800 Other: Voiding Method Urinal Urinal # Voids 2 1 2 - Exam General: Alert and Oriented x3, No Acute Distress Head: Normocytic, Atraumatic Neck: Supple Mouth: No Lesions, No Thrush Eyes: Non-sclerotic No Palpable cervical, supraclavicular, axillary adenopathy Heart: Regular Rate, Regular Rhythm Lungs: Clear to Ausculations, No Wheeze, No Rhonchi, Diminishe bilateral lower lobes, No increased respiratory effort noted Abdomen: Soft, Non-Distended, Non-Tended, BSx4 Extremities: No Edema, Equal Strength Neurological: No Focal Defects: No sensory or motor deficits noted Psych: Calm and cooperative - Labs CBC & Chem 7: 05/18/20 08:16 05/18/20 08:16 Labs: Abnormal Lab Results - Last 24 Hours (Table) 05/18/20 05/18/20 Range/Units 08:16 08:16 WBC 15.7 H (3.8-10.6) k/uL RBC 3.80 L (4.30-5.90) m/uL Hgb 11.7 L (13.0-17.5) gm/dL Hct 35.8 L (39.0-53.0) % RDW 17.3 H (11.5-15.5) % Neutrophils # 14.0 H (1.3-7.7) k/uL Lymphocytes # 0.7 L (1.0-4.8) k/uL Glucose 118 H (74-99) mg/dL Uric Acid 9.1 H (3.5-8.5) mg/dL Lactate Dehydrogenase 1282 H (313-618) U/L Total Protein 5.8 L (6.3-8.2) g/dL Microbiology - Last 24 Hours (Table) 05/15/20 12:41 Blood Culture - Preliminary Blood No Growth after 72 hours Assessment and Plan Plan: Assessment and Recommendations: Lymphoma: See HPI for full history of diagnosis and prior treatments - Currently on treatment with CHP adentris status post cycle 3 on 05/01/20 - Recent CT inpatient question of tumor progression, a PET scan was initially ordered outpatient although insurance would not cover. If is unclear if this is true progression or not when reviewing the CT scan, a PET scan for re-staging will be ordred again as outpatient given the indeterminate CT findings for progression. Neutropenia - Resolved - GCSF discontinued Persistent Right Hydronephrosis caused from progressive Mass Effect: - Urology has evalauted and feels a stent will not be helpful at this time. ALthough the patient is in significant pain and with limited treatment options the goal of discharge for PET scan is resonable. Will discuss further with Dr. Zafar. Radiation? Right inguinal, left back and leg pain: - Continue symptom management and supportive care - Add Bowel regimen with narcotic pain management - Senna S and miralax. PLan: - PET as outpatient - Palliative plan to allow patient to be stable for discharge to further evaluate progression and treatment options. - Will add long acting and short acting PO medications for pain management - Increase Bowel Regimen Senna S BID and daily miralax
[2020-05-18] MEDS: FILGRASTIM-SNDZ 480 MCG/0.8 ML SYRINGE SQ SCH (16:59)
[2020-05-18] MEDS: polyethylene glycoL 3350 17 GM POWD.PACK PO SCH (17:29)
[2020-05-18] MEDS: MORPHINE ORAL SOLN 10 MG/5 ML CUP PO PRN (17:34)
[2020-05-18] MEDS: MORPHINE SULFATE ER 15 MG TABLET PO SCH (20:48)
[2020-05-18] MEDS: QUEtiapine 100 MG TAB PO SCH (20:48)
--- NOTE | 2020-05-19 00:15 | PN ---
PROGRESS NOTE DATE OF SERVICE: 05/18/2020 REASON FOR FOLLOWUP: Febrile neutropenia. INTERVAL HISTORY: The patient is currently afebrile. He is breathing comfortably. The patient's pain to the right groin and the leg has slightly decreased in intensity. The patient denies having any chest pain or cough. No nausea, no vomiting. No abdominal pain or diarrhea. Has been feeling better since admission. PHYSICAL EXAMINATION: Blood pressure 136/71 with a pulse of 70, temperature 98.1. He is 93% on room air. General description is a middle-aged male lying in bed in no distress. RESPIRATORY SYSTEM: Unlabored breathing, clear to auscultation anteriorly. HEART: S1, S2. Regular rate and rhythm. ABDOMEN: Soft, no tenderness. LABS: Hemoglobin 11.7, white count 15.7, BUN of 9, creatinine 0.96. Blood culture has been negative. DIAGNOSTIC IMPRESSION AND PLAN: Patient admitted to the hospital with fever in this patient who did have stage IV non- Hodgkin lymphoma with a tumor mass in the right flank compressing on the ureter and the kidney with obstructive uropathy and possible concern for urinary tract infection. The patient is currently on cefepime. He is afebrile. Finishing therapy with short course of oral Ceftin with culture negative and neutropenia resolved. Continue supportive care. MMODL / IJN: [id number] /
[2020-05-19] MEDS: SODIUM CHLORIDE 0.9% 1,000 ML IV SCH ×2 (02:27→05:20)
[2020-05-19] MEDS: MORPHINE ORAL SOLN 10 MG/5 ML CUP PO PRN ×2 (02:32→14:25)
[2020-05-19] MEDS: QUEtiapine 25 MG TAB PO SCH (07:02)
[2020-05-19] MEDS: MORPHINE SULFATE ER 15 MG TABLET PO SCH (07:26)
[2020-05-19] MEDS: busPIRone HCl 10 MG TAB PO SCH (07:26)
[2020-05-19] MEDS: allopurinoL 300 MG TAB PO SCH (07:26)
[2020-05-19] MEDS: CEFEPIME 2 GM in SODIUM CHLORIDE 0.9% 100 ML IVPB SCH (07:26)
[2020-05-19] MEDS: SERTRALINE 100 MG TAB PO SCH (07:27)
[2020-05-19] MEDS: polyethylene glycoL 3350 17 GM POWD.PACK PO SCH (07:27)
[2020-05-19] MEDS: SENNOSIDES-DOCUSATE SODIUM 1 EACH TAB PO SCH (07:27)
[2020-05-19] MEDS: Atomoxetine Hcl [Strattera] 80 MG PO SCH (07:32)
[2020-05-19] MEDS ORDERED: PANTOPRAZOLE 40 MG TABLET PO SCH (11:30)
[2020-05-19 12:32] VITALS: BP 138/74; PULSE 81; RESP 19; TEMP 97.9
--- NOTE | 2020-05-19 14:05 | PN ---
PROGRESS NOTE A 55-year-old, white male, non-Hodgkin's lymphoma, pressing on the ureter causing hydronephrosis, possible UTI, neutropenic sepsis. Patient is doing better, neutropenia has resolved, lymphoma. With a followup as outpatient with a PET scan. Hydronephrosis. Urology does want to do anything. Possibly Dr. Zafar will do radiation for this. Possibly send the patient home, increased bowel regimen and possible discharge home. Follow up as an outpatient for maybe outpatient radiation of the tumor and oral Ceftin to finish a seven-day course per Dr. Dyer. DATE OF SERVICE: 05/18/2020. MMODL / IJN: [id number] /
--- NOTE | 2020-05-19 16:13 | P.PN ---
Subjective Progress Note Date: 05/19/20 Principal diagnosis: Neutropenia and hydronephrosis Still with pain although appears the long acting morphine controlling and limiting his PRN Objective - Vital Signs Vital signs: Vital Signs Temp 98.0 F 05/19/20 04:54 Pulse 86 05/19/20 04:54 Resp 18 05/19/20 04:54 BP 133/77 05/19/20 04:54 Pulse Ox 96 05/19/20 04:54 Intake & Output 05/18/20 05/19/20 05/19/20 18:59 06:59 18:59 Intake Total 580 625 Output Total 800 275 Balance -220 350 Intake: Intake, IV Titration 225 Amount Sodium Chloride 0.9% 1, 225 000 ml @ 75 mls/hr IV . [id number] [facility] Rx#:[id number] Oral 580 400 Output: Urine 800 275 Other: Voiding Method Urinal Urinal # Voids 2 - Exam General: Alert and Oriented x3, No Acute Distress Head: Normocytic, Atraumatic Neck: Supple Mouth: No Lesions, No Thrush Eyes: Non-sclerotic No Palpable cervical, supraclavicular, axillary adenopathy Heart: Regular Rate, Regular Rhythm Lungs: Clear to Ausculations, No Wheeze, No Rhonchi, Diminishe bilateral lower lobes, No increased respiratory effort noted Abdomen: Soft, Non-Distended, Non-Tended, BSx4 Extremities: No Edema, Equal Strength Neurological: No Focal Defects: No sensory or motor deficits noted Psych: Calm and cooperative - Labs CBC & Chem 7: 05/18/20 08:16 05/18/20 08:16 Labs: Microbiology - Last 24 Hours (Table) 05/15/20 12:41 Blood Culture - Preliminary Blood No Growth after 72 hours Assessment and Plan Plan: Assessment and Recommendations: Lymphoma: See HPI for full history of diagnosis and prior treatments - Currently on treatment with CHP adentris status post cycle 3 on 05/01/20 - Recent CT inpatient question of tumor progression, a PET scan was initially ordered outpatient although insurance would not cover. If is unclear if this is true progression or not when reviewing the CT scan, a PET scan for re-staging will be ordred again as outpatient given the indeterminate CT findings for progression. Neutropenia - Resolved - GCSF discontinued Persistent Right Hydronephrosis caused from progressive Mass Effect: - Urology has evalauted and feels a stent will not be helpful at this time. ALthough the patient is in significant pain and with limited treatment options the goal of discharge for PET scan is resonable. Will discuss further with Dr. Zafar. Radiation? Right inguinal, left back and leg pain: - Continue symptom management and supportive care - Add Bowel regimen with narcotic pain management - Senna S and miralax. PLan: - PET as outpatient scheduled on 05/26 - 3 day MSER given and Dumont PRN - Senna-s and Miralax script also provided - Follow-up with DEVELOPMENT SCIENTIST in Dr. Ovalle friday for re-evaluation of pain - Possible palliative radiation plan to tumor causing persistent and now painful hydronephrosis, will need to discuss with Dr. Zafar. Plan discussed with patient
--- NOTE | 2020-05-19 17:18 | PN ---
PROGRESS NOTE DATE OF SERVICE: 05/19/2020 REASON FOR FOLLOWUP: Fever, possible UTI. INTERVAL HISTORY: The patient is currently afebrile. The patient is feeling better. Breathing comfortably. Denies having any chest pain. No shortness of breath or cough. No nausea. The right groin pain has improved. No diarrhea. No urinary symptoms. PHYSICAL EXAMINATION: Blood pressure 132/74 with a pulse of 81, temperature 97.9. He is 94% on room air. General description is a middle aged male lying in bed in no distress. Respiratory system: Unlabored breathing, clear to auscultation. Heart S1, S2. Regular rate and rhythm. Abdomen soft, no tenderness. LABS: Blood culture has been negative. White count normalized. DIAGNOSTIC IMPRESSION AND PLAN: Patient admitted to the hospital with fever and concern for possible urinary source as the patient did have nonHodgkins lymphoma advanced to the right pelvic area and compression on the ureter and bladder. The patient improved on cefepime. Finish therapy with a short course of oral Ceftin. Continue supportive care. MMODL / IJN: [id number] /
[2020-05-20 19:42] LABS: LD Isoenzymes 1 19 % (19-38); LD Isoenzymes 2 39 % (30-43); LD Isoenzymes 3 24 % (16-26); LD Isoenzymes 4 9 % (3-12); LD Isoenzymes 5 9 % (3-14); Lactacte Dehydrogenase(LD) ISO 398 U/L (120-250)
--- NOTE | 2020-06-13 07:19 | DS ---
DISCHARGE SUMMARY DATE OF ADMISSION: 05/15/2020 DATE OF DISCHARGE: 05/19/2020 DISCHARGE MEDICINES: 1. Strattera 80 mg daily. 2. BuSpar 30 mg b.i.d.. 3. Seroquel 100 mg daily. 4. Zoloft 200 mg daily. 5. Seroquel XR 150 p.o. daily. 6. Zofran 4 mg q.6 p.r.n. 7. MiraLAX 17 g daily. 8. Senna 2 tabs daily. CONDITION: Stable. PROGNOSIS: Guarded. AMBULATE: As tolerated. Follow up in office in a week. The patient was seen by Dr. Marroquin and Dr. Dyer for UTI and urinary retention. History non-Hodgkin's lymphoma. He had a urinary tract infection, started on cefepime, finished with dose of oral Ceftin to go home with. Prognosis guarded due to non-Hodgkin's lymphoma and history of long-term cancer. Prognosis extremely guarded. MMODL / IJN: [id number] /
== END 2020-05-19 16:00 | disposition home or self-care (01) | DRG 872 ==
LOC: EC 11:49 → 5NMEDONC 15:01
PROVIDERS: ADMIT Family Medicine; ATTEND Family Medicine
DX: A41.9 Sepsis, unspecified organism (principal); E87.2 Acidosis; C81.90 Hodgkin lymphoma, unspecified, unspecified site; C84.40 Peripheral T-cell lymphoma, not elsewhere classified, unspecified site; C83.35 Diffuse large B-cell lymphoma, lymph nodes of inguinal region and lower limb; N13.1 Hydronephrosis with ureteral stricture, not elsewhere classified; D70.3 Neutropenia due to infection; F31.9 Bipolar disorder, unspecified; R50.81 Fever presenting with conditions classified elsewhere; N26.1 Atrophy of kidney (terminal); F90.9 Attention-deficit hyperactivity disorder, unspecified type; F41.9 Anxiety disorder, unspecified; K59.00 Constipation, unspecified; R19.00 Intra-abdominal and pelvic swelling, mass and lump, unspecified site; F17.290 Nicotine dependence, other tobacco product, uncomplicated; Z79.899 Other long term (current) drug therapy; Z91.040 Latex allergy status; Z91.048 Other nonmedicinal substance allergy status; Z86.14 Personal history of Methicillin resistant Staphylococcus aureus infection; Z86.19 Personal history of other infectious and parasitic diseases; Z87.2 Personal history of diseases of the skin and subcutaneous tissue; Z98.890 Other specified postprocedural states; Z81.8 Family history of other mental and behavioral disorders
CPT/HCPCS: 36415; 71046; 74177; 80053; 80202; 81003; 82150; 82565; 82784; 83605; 83615; 83625; 83690; 83735; 84100; 84550; 85025; 85610; 85730; 87040; 96365; 96366; 96367; 96375; 99285

== ENCOUNTER → 2020-05-26 | Outpatient (CLI) | payer OTHER ==
--- NOTE | 2020-05-29 06:28 | PE ---
EXAMINATION TYPE: PET CT fusion skull to thigh DATE OF EXAM: 05/26/2020 COMPARISON: CT abdomen and pelvis May 15, 2020 and older CTs. Prior PET/CT April 09, 2019. HISTORY: Lymphoma involving neck Chest and right groin originally diagnosed December 2018 right neck c ompleted chemotherapy 4 weeks ago. TECHNIQUE: Following the intravenous administration of 13.0 mCi of F-18 FDG, whole body images are p erformed from the skull base to the midthigh. Images are reviewed on the computer in the coronal, ax ial, and sagittal planes. Reconstructed rotating images are created on independent workstation and r eviewed on the computer. A noncontrast CT is performed in conjunction with the PET scan. SCAN: Subsequent Scan FINDINGS: MEAN SUV MEDIASTINUM: 1.03 MEAN SUV LIVER: 1.59 SKULL BASE AND NECK: Abnormal hypermetabolic uptake at the level of the tongue base is strongly susp icious as there is increased soft tissue thickening and asymmetric hypermetabolic uptake left aspect axial image 34, max SUV is 5.24. New lymphoma involvement at this level is suspected. More suspicious hypermetabolic uptake right submandibular level centered near level of hyoid bone, fo r reference lymph node measures 3.6 x 2.0 cm axial image 44 new from prior PET CT, max SUV is 7.08. CHEST, MEDIASTINUM, AND HILAR REGION: Few prominent but subcentimeter lymph nodes throughout the thor ax in the mediastinum are identified on current study. Marked interval improvement from the December 14, 2018 CT and April 09, 2019 PET/CT. No greater than 1 cm thoracic adenopathy clearly identified. No lamar picious hypermetabolic uptake on current study. ABDOMEN AND PELVIS: Diffuse fatty infiltration of liver redemonstrated. Previously hypermetabolic jus t over 1 cm retrocrural lymph node near diaphragm now is not identified. No new suspicious hypermetab olic uptake in the liver or spleen. There is interval worsening of the right pelvic hypermetabolic mass or adenopathy from older studies with roughly 11.7 x 10.5 cm lesion axial image 208, max SUV is 27.18. This measures just over 17 cm c raniocaudal length. Along the anterior inferior aspect there are additional hypermetabolic masses or lymph nodes including one indistinct from the inferior right rectus muscle measuring roughly 3.7 x 8. 8 cm transversely axial image 235, max SUV of this lesion is 26.72. There is local mass effect on the bladder deviated to left of midline along with the right-sided iliac chain vessels deviated medially . There is mass effect on the right kidney with persistent severe hydronephrosis. OSSEOUS STRUCTURES: No new areas of abnormal hypermetabolic uptake. OTHER CT: Left subclavian Mediport catheter terminating in SVC. Prominent bilateral subareolar nodula r gynecomastia redemonstrated. IMPRESSION: Overall mixed response as there is local neoplastic progression in the right pelvis as de tailed above. There is recurrent hypermetabolic adenopathy in the right neck noted. There is now invo lvement in the oropharynx centered left tongue base now felt present. There is however interval impro vement in the thoracic adenopathy and upper abdominal retrocrural hypermetabolic lymph node.
== END | disposition home or self-care (01) ==
LOC: RADPETMAIN 13:47
PROVIDERS: ATTEND Internal Medicine Hematology & Oncology
DX: C85.88 Other specified types of non-Hodgkin lymphoma, lymph nodes of multiple sites (principal)
CPT/HCPCS: 78815; A9552

== ENCOUNTER 2020-07-17 08:01 | Inpatient (IN) | payer OTHER ==
[~2020-07-17 08:01] MED LIST changes: -ACETAMINOPHEN TAB 500 MG TAB PO ONE; -BUPIVACAIN-EPI 0.25%-1:200,000 30 ML VIAL SQ ONE; -HEPARIN SODIUM,PORCINE 100 UNIT/ML 5 ML VIAL IV ONE; -HEPARIN SODIUM,PORCINE 5,000 UNIT/ML 1 ML VIAL SQ ONE; -IOPAMIDOL-370 50ML BTL MISCELLANE ONE; -LACTATED RINGERS 1,000 ML IV ONE; -LIDOCAINE 1% INJ 10MG/ML (20 ML MDV) ONE; -MIDAZOLAM 2 MG/2 ML VIAL ONE; +ONDANSETRON 4 MG/2 ML VIAL IVP PRN; -PROPOFOL 10 MG/ML 20 ML VIAL IV ONE; -Pre Op ABX Message 1 EACH MISC MISCELLANE ONE; -ceFAZolin 1,000 MG VIAL IVPB ONE; -fentaNYL (PF) 50 MCG/ML 2 ML AMP IV ONE; -fentaNYL (PF) 50 MCG/ML 2 ML AMP ONE
[2020-07-17] MEDS: SODIUM CHLORIDE 0.9% 1,000 ML IV SCH ×2 (11:07→19:15)
[2020-07-17 11:45] LABS: ALT 15 U/L (4-49); AST 21 U/L (17-59); African American GFR (CKD) 88 (>60 ml/min/1.73 sqM); Albumin 3.9 g/dL (3.5-5.0); Albumin/Globulin Ratio 1.7; Alkaline Phosphatase 73 U/L (38-126); Anion Gap 6 mmol/L; Blood Urea Nitrogen 14 mg/dL (9-20); Carbon Dioxide 25 mmol/L (22-30); Chloride 107 mmol/L (98-107); Globulin 2.3 g/dL; Glucose 88 mg/dL (74-99); Non-African American GFR(CKD) 76 (>60 ml/min/1.73 sqM); Phosphorus 3.9 mg/dL (2.5-4.5); Sodium 138 mmol/L (137-145); Total Bilirubin 0.4 mg/dL (0.2-1.3); Total Protein 6.2 g/dL (6.3-8.2); Uric Acid 6.1 mg/dL (3.5-8.5)
[2020-07-17 11:52] LABS: Basophils % (A) 0 %; Eosinophils # (A) 0.2 k/uL (0-0.7); Eosinophils % (A) 5 %; HCT 40.9 % (39.0-53.0); HGB 13.3 gm/dL (13.0-17.5); Lymphocytes # (A) 0.3 k/uL (1.0-4.8); Lymphocytes % (A) 7 %; MCH 32.1 pg (25.0-35.0); MCHC 32.5 g/dL (31.0-37.0); MCV 98.7 fL (80.0-100.0); Mean Platelet Volume 6.4; Monocytes # (A) 0.3 k/uL (0-1.0); Monocytes % (A) 6 %; Neutrophils # (A) 3.3 k/uL (1.3-7.7); Neutrophils % (A) 79 %; Platelet Count 140 k/uL (150-450); RBC 4.14 m/uL (4.30-5.90); RDW 14.5 % (11.5-15.5); WBC 4.2 k/uL (3.8-10.6)
[2020-07-17] MEDS: ONDANSETRON 16 MG in SODIUM CHLORIDE 0.9% 50 ML IVPB SCH (13:44)
[2020-07-17] MEDS: DEXAMETHASONE SOD PHOSPHATE 10 MG/ML 1 ML VIAL IV SCH (14:21)
[2020-07-17] MEDS: FAMOTIDINE 20 MG/2 ML VIAL IV SCH (14:23)
[2020-07-17] MEDS: ETOPOSIDE IV SCH (14:40)
[2020-07-17] MEDS: SODIUM CHLORIDE 0.9% IV SCH (14:40)
--- NOTE | 2020-07-17 20:04 | P.HPIM ---
History of Present Illness H&P Date: 07/17/20 Chief Complaint: Timed Chemotherapy - ICE Mister Lamb is a pleasant white male, initially seen in consult on 12/15/18. He had presented to [facility] with complaints of persistent fatigue, and progressively increasing shortness of breath on exertion. He had had a weight loss of about 30 pounds in the prior 3-4 months. Imaging at [facility] revealed evidence of obstructive uropathy and diffuse adenopathy above and below the diaphragm.. On examination he appeared to have right supraclavicular nodes are palpable, at least about 2 cm. he underwent a right supraclavicular lymph node biopsy on 12/16/18, and was then discharged. 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 This was sent to the [facility] for a consultation. 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 ALK testing was negative. Be an T-cell rearrangement studies were ordered. Surprisingly B cell gene rearrangement, IGH an IgG daily for clonal, while T-cell rearrangements were negative. 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 the patient had a bone marrow aspiration biopsy on 01/15/19. He is also status post port placement. A PET scan was ordered but the patient did not keep that appointment. he was also referred to the [facility], part the appointment was delayed due to to have not having insurance. This was scheduled for 02/08/19 His bone marrow showed significant involvement with lymphoma. Gene rearrangement studies did not show B or T cell markers!! The pt however got admitted to [place] with progressive symptoms. He was thus started on EPOCH inpt on 02/07/19, and is s/p C 1. His stay was complicated by extravasation of chemo causing soft tissue damage in the rt upper chest wall.Fortunately there was no deep tissue necrosis, and this was treated supportively. He continued chemo with a LUE PICC line. He was admitted with febrile neutropenia after C 1 to [facility]. He improved with antibiotics and GCSf. 03/18/19-Pt here today for disability paperwork that was completed. He is S/P 2 cycles of EPOCH, 2nd dose completed on 03/[address] [facility]. Today he has c/o severe oral irritation, mild SOB on exertion, feeling general maliaze, his temp was 99.4F when rechecked 100.4F, due to increasing temp and severe mucsitis/thrush pt sent to ER. Concerns for pt being able to manage recommended Rx (anti-viral, fungal and bacterial as he did not [employer] the oral suspension prescribed for his mouth yesterday, he didn't even know it was ordered). He was readmitted after C 2 with thrush, mucositis and febrile neutropenia after C 2, and improved with supportive care. PET scan post C 2 was delayed as the pt did not get it done. He had that on 04/10/19. This showed resolution of FDG activity above the diaphragm, and in the upper abdomen. However, adenopathy along the rt iliac chain showed increase, wth persistent marked uptake. He had a biopsy performed, revealing NHL. 05/11/19-Pt here today for acute visit-port/rt chest wall pain, last few days, persistent, denies F,C, drainage, he is pending evaluation at [facility] as to how to proceed due mixed results from chemo, pt otherwise has no other c/o. the patient was seen at the [facility] Pierson and case reviewed. It was recommended that the patient did have a significant response, and should continue with the chemotherapy, with Cytoxan/Adriamycin/Brentuximab/Prednisone combination targeting CD30. he started the same on 06/22/19 and is s/p 2 cycles. He was admitted after cycle 1 for febrile neutropenia. He also developed breakdown of soft tissue along the chest wall and had his port removed as well as debridement. G-CSF was added with cycle 2. the patient had also been referred to bone marrow transplant at the [facility] and was ultimately seen there on 07/27/19. They informed us that his biopsy from the right iliac lymph node had been obtained and reviewed at the [facility]. the report was formalized after his consultation there in 06/24, and had indicated that this was actually a B-cell lymphoma! His slides from his other biopsies were requested for comparison at the [facility]. This was on hold as the pt delayed coming in for signing the release form, but was ultimately done. his prior slides were subsequently received and reviewed at the [facility]. Case was discussed with the pathologist. 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 08/10/19-Pt here for monitoring until such time that [facility] returns their recommendations for treatment. Pt has no c/o on a 14 point ROS, he has right chest wall wound vac managed by Dr. Brito. No fevers, vomiting, appetite is decent, no bowel or bladder changes, he is fully ambulatory. treatment had to be placed on hold because of active wound in the right upper chest wall with slow healing. Repeat CT scan from 10/25 showed essentially stable findings with persistent terence mass in the right iliac area. the patient was continued on observation, with repeat CT scans in late 12/23 again showing stable findings. the patient was referred back to [facility] and seen there in 02/22. It was recommended that he resume chemotherapy with the same regimen. Chest wall lesion continued to improve and healing was finally felt to be satisfactory by 03/25. He resumed CHP-Adcetris on 04/12/20 and is status post 2 cycles (total 4) when seen in the office after cycle 2 he was complaining of significant right-sided abdominal pain. He was admitted to the hospital with CT scans revealing likely progression in the right pelvic mass with some increase in adjacent adenopathy. He was treated symptomatically for pain control. He was seen by urology during that visit, and not felt to be a candidate for stenting for his right hydronephrosis, as this was chronic and not felt to be the source of his pain. Renal function was also normal. Post discharge patient had a PET scan on 05/26/20. This confirmed marked uptake with increase in size of the right pelvic mass and adjacent lymph nodes. There was also increased uptake noted in the left base of tongue, and right submandibular node. Mediastinal nodes, however, showed improvement compared to before 05/23/20-Pt here for hospital f/u, intractable pain, hydronephrosis, CT was not convincing for progression so, PET is scheduled. He states the prescribed pain meds are helping and adequate. No other c/o today. As above He denied any fever/chills/n/v/diarrhea. pain is controlled on current regimen. . Appetite and energy are fair. No obvious bleeding. he has not noted new adenopathy. comprehension and recall are stable. His sister is his primary caregiver. He continues to live with his father. Review of systems otherwise as per HPI and negative out of 10. Review of Systems All systems: negative Constitutional: Reports as per HPI Past Medical History Past Medical History: Cancer, COPD, GERD/Reflux, GI Bleed Additional Past Medical History / Comment(s): Non hodgkins lymphoma/R hydronephrosis/pelvic mass recently finished 20 radiation treatments/receiving chemotherapy, R chest wound nearly healed (chemo extravasation), bronchitis, past stomach ulcer, upper and lower GI bleeds, diverticular disease, constipation. History of Any Multi-Drug Resistant Organisms: MRSA Date of last positivie culture/infection: 06/03/19 MDRO Source:: chest wall Past Surgical History: No Surgical Hx Reported Additional Past Surgical History / Comment(s): R supraclavicular lymph node bx, bone marrow aspiration/bx, R iliac lymph node bx, R chest port/removed then had wound debridement/wound vac, L chest wall port, colonoscopy. Past Anesthesia/Blood Transfusion Reactions: No Reported Reaction Additional Past Anesthesia/Blood Transfusion Reaction / Comment(s): Pt has received blood in past without reaction. Smoking Status: Current every day smoker - Past Family History Father Family Medical History: Coronary Artery Disease (CAD) Additional Family Medical History / Comment(s): Father has a cardiac stent. Mother Family Medical History: No Reported History Additional Family Medical History / Comment(s): Mother from dementia. Medications and Allergies Home Medications Medication Instructions Recorded Confirmed Type Ondansetron [Zofran] 4 mg PO Q8H PRN 05/15/20 07/17/20 History Sertraline [Zoloft] 200 mg PO DAILY 05/15/20 07/17/20 History HYDROcodone/APAP 10-325MG [[place] 1 tab PO Q4H PRN 07/17/20 07/17/20 History 10-325] Morphine Sulfate ER [Ms Contin] 15 mg PO Q8H PRN 07/17/20 07/17/20 History Omeprazole 40 mg PO DAILY 07/17/20 07/17/20 History QUEtiapine XR [SEROquel XR] 150 mg PO DAILY 07/17/20 07/17/20 History QUEtiapine XR [SEROquel XR] 200 mg PO HS 10/12/20 10/12/20 History busPIRone HCL 15 mg PO DAILY 07/17/20 07/17/20 History Allergies Allergy/AdvReac Type Severity Reaction Status Date / Time adhesive tape Allergy RED SKIN Verified 05/15/20 13:45 AND BLISTERS latex Allergy Rash/Hives Verified 05/15/20 13:45 ragweed pollen Allergy Wheezing Verified 05/15/20 13:45 Physical Exam Vitals: Vital Signs Temp Pulse Resp BP BP Pulse Ox 07/17/20 16:00 97.7 F 64 16 96/63 97 07/17/20 14:43 97.5 F L 68 110/70 98 07/17/20 13:27 113/73 07/17/20 12:59 98.0 F 60 18 90/58 87/53 97 07/17/20 08:15 97.8 F 81 18 117/79 97 Intake and Output 07/17/20 07/17/20 07/17/20 06:59 14:59 22:59 Intake Total 800 Balance 800 Intake: Oral 800 Other: # Voids 2 Weight 127.323 kg General: Alert and Oriented x3, No Acute Distress Head: Normocytic, Atraumatic Neck: Supple Mouth: No Lesions, No Thrush Eyes: Non-sclerotic No Palpable cervical, supraclavicular, axillary adenopathy Heart: Regular Rate, Regular Rhythm Lungs: Clear to Ausculations, No Wheeze, No Rhonchi, Diminishe bilateral lower lobes, No increased respiratory effort noted Abdomen: Soft, Non-Distended, Non-Tended, BSx4 Extremities: No Edema, Equal Strength Neurological: No Focal Defects: No sensory or motor deficits noted Psych: Calm and cooperative Results CBC & Chem 7: 07/18/20 04:28 07/18/20 04:28 Labs: Abnormal Lab Results - Last 24 Hours (Table) 07/17/20 07/17/20 Range/Units 10:31 10:31 RBC 4.14 L (4.30-5.90) m/uL Plt Count 140 L (150-450) k/uL Lymphocytes # 0.3 L (1.0-4.8) k/uL Total Protein 6.2 L (6.3-8.2) g/dL Thrombosis Risk Factor Assmnt - Choose All That Apply Any of the Below Risk Factors Present?: Yes Each Factor Represents 1 point: Abnormal pulmonary function (COPD), Age 41-60 years, Obesity (BMI >25) Other Risk Factors: Yes Each Risk Factor Represents 2 Points: Malignancy Other congenital or acquired thrombophilia - If yes, enter type in comment: No Thrombosis Risk Factor Assessment Total Risk Factor Score: 5 Thrombosis Risk Factor Assessment Level: High Risk Assessment and Plan (1) Lymphoma Current Visit: No Status: Acute Code(s): C85.90 - NON-HODGKIN LYMPHOMA, UNSPECIFIED, UNSPECIFIED SITE SNOMED Code(s): 209494608 (2) Non-Hodgkin's lymphoma in adult Current Visit: No Status: Chronic Priority: Medium Code(s): C85.90 - NON- HODGKIN LYMPHOMA, UNSPECIFIED, UNSPECIFIED SITE SNOMED Code(s): 471139205 Plan: Assessment and Recommendations: Lymphoma: See HPI for full history of diagnosis and prior treatments - Recent treatment with CHP adentris status post cycle 3 on 05/01/20 and discontinued due to progression - Now admitted for Cycle one of ICE, Udencya on Friday in office. Daily CBC with Diff, CMP, Mag, Phos, Uric acid Monitor for TLS Monitor Daily Urine Dipstick for RBCs, >3+ contact Hematology Recent Admission due to Persistent Right Hydronephrosis caused from Progressive Mass Effect: - Status Post Radiation by Dr. Russo Right inguinal, left back and leg pain: - Continue symptom management and supportive care - Add Bowel regimen with narcotic pain management - Senna S and miralax. - Status Post Palliative Radiation to painful tumor Plan: - Day one of Treatment with ICE - Daily Labs - PPI Prophylaxis - VTE Prophylaxis - Medications reviewed and confirmed - PCP on for medical management Physician Attest: I have completed the full history and physical and agree with above dictation, dictated as a scribe.
[2020-07-17] MEDS ORDERED: MORPHINE SULFATE ER 15 MG TABLET PO PRN (20:07)
[2020-07-17] MEDS ORDERED: QUEtiapine 25 MG TAB PO SCH (21:00)
[2020-07-17] MEDS ORDERED: busPIRone HCl 5 MG TAB PO SCH (21:00)
[2020-07-17] MEDS: SENNOSIDES-DOCUSATE SODIUM 1 EACH TAB PO SCH (21:17)
[2020-07-17] MEDS: QUEtiapine 200 MG TAB PO SCH (21:18)
[2020-07-17] MEDS: HYDROcodone/APAP 10-325MG 1 EACH TAB PO PRN (21:21)
[2020-07-18] MEDS: SODIUM CHLORIDE 0.9% 1,000 ML IV SCH ×3 (02:23→17:41)
[2020-07-18 05:14] LABS: Basophils % (A) 0 %; Eosinophils % (A) 0 %; HCT 41.5 % (39.0-53.0); HGB 13.9 gm/dL (13.0-17.5); Lymphocytes # (A) 0.2 k/uL (1.0-4.8); Lymphocytes % (A) 2 %; MCH 32.6 pg (25.0-35.0); MCHC 33.4 g/dL (31.0-37.0); MCV 97.4 fL (80.0-100.0); Mean Platelet Volume 6.5; Monocytes # (A) 0.2 k/uL (0-1.0); Monocytes % (A) 2 %; Neutrophils # (A) 5.9 k/uL (1.3-7.7); Neutrophils % (A) 95 %; Platelet Count 146 k/uL (150-450); RBC 4.26 m/uL (4.30-5.90); RDW 14.3 % (11.5-15.5); WBC 6.2 k/uL (3.8-10.6)
[2020-07-18] MEDS: SERTRALINE 100 MG TAB PO SCH (08:06)
[2020-07-18] MEDS: PANTOPRAZOLE 40 MG TABLET PO SCH (08:07)
[2020-07-18] MEDS: QUEtiapine 100 MG TAB PO SCH (08:07)
[2020-07-18] MEDS: ENOXAPARIN 40 MG/0.4 ML SYRINGE SQ SCH (08:07)
[2020-07-18] MEDS: busPIRone HCl 10 MG TAB PO SCH ×2 (08:07→20:52)
[2020-07-18] MEDS: allopurinoL 300 MG TAB PO SCH (08:07)
[2020-07-18] MEDS: SENNOSIDES-DOCUSATE SODIUM 1 EACH TAB PO SCH ×2 (08:07→20:53)
[2020-07-18] MEDS ORDERED: QUEtiapine 100 MG TAB PO SCH (09:00)
[2020-07-18] MEDS ORDERED: busPIRone HCl 5 MG TAB PO SCH (09:00)
[2020-07-18 09:33] LABS: African American GFR (CKD) 86.5 (60.0-200.0); Albumin 4.2 g/dL (3.80-4.90); Albumin/Globulin Ratio 2.63 (1.60-3.17); Anion Gap 9.6 mmol/L (4.00-12.00); BUN/Creat Ratio 13.64 Ratio (12.00-20.00); Calcium 8.9 mg/dL (8.7-10.3); Carbon Dioxide 21.4 mmol/L (21.6-31.8); Globulin 1.6 g/dL (1.6-3.3); Magnesium 1.8 mg/dL (1.5-2.4); Non-African American GFR(CKD) 74.6 (60.0-200.0); Phosphorus 2.9 mg/dL (2.4-5.1); Potassium 4.9 mmol/L (3.5-5.5); Total Bilirubin 0.4 mg/dL (0.2-1.2); Total Protein 5.8 g/dL (6.2-8.2); Uric Acid 6.1 mg/dL (3.7-8.7)
--- NOTE | 2020-07-18 12:36 | P.PN ---
Subjective Progress Note Date: 07/18/20 Principal diagnosis: Refractory Lymphoma Tolerating regimen well, no acute complaints. Labs are currently stable Objective - Vital Signs Vital signs: Vital Signs Temp 98.2 F 07/18/20 12:00 Pulse 67 07/18/20 12:00 Resp 18 07/18/20 12:00 BP 143/87 07/18/20 12:00 Pulse Ox 100 07/18/20 12:00 Intake & Output 07/17/20 07/18/20 07/18/20 18:59 06:59 18:59 Intake Total 800 2860 Balance 800 2860 Weight 127.323 kg Intake: Intake, IV Titration 1500 Amount Sodium Chloride 0.9% 1, 1500 000 ml @ 125 mls/hr IV . Q8H DA Rx#:[id number] Oral 800 1360 Other: # Voids 2 4 1 - Exam General: Alert and Oriented x3, No Acute Distress Head: Normocytic, Atraumatic Neck: Supple Mouth: No Lesions, No Thrush Eyes: Non-sclerotic No Palpable cervical, supraclavicular, axillary adenopathy Heart: Regular Rate, Regular Rhythm Lungs: Clear to Ausculations, No Wheeze, No Rhonchi, Diminishe bilateral lower lobes, No increased respiratory effort noted Abdomen: Soft, Non-Distended, Non-Tended, BSx4 Extremities: No Edema, Equal Strength Neurological: No Focal Defects: No sensory or motor deficits noted Psych: Calm and cooperative - Labs CBC & Chem 7: 07/18/20 04:28 07/18/20 04:28 Labs: Abnormal Lab Results - Last 24 Hours (Table) 07/18/20 07/18/20 Range/Units 04:28 04:28 RBC 4.26 L (4.30-5.90) m/uL Plt Count 146 L (150-450) k/uL Lymphocytes # 0.2 L (1.0-4.8) k/uL Carbon Dioxide 21.4 L (21.6-31.8) mmol/L Glucose 123 H (70-110) mg/dL Total Protein 5.8 L (6.2-8.2) g/dL Assessment and Plan (1) Lymphoma Current Visit: No Status: Acute Code(s): C85.90 - NON-HODGKIN LYMPHOMA, UNSPECIFIED, UNSPECIFIED SITE SNOMED Code(s): 802612962 (2) Non-Hodgkin's lymphoma in adult Current Visit: No Status: Chronic Priority: Medium Code(s): C85.90 - NON- HODGKIN LYMPHOMA, UNSPECIFIED, UNSPECIFIED SITE SNOMED Code(s): 289964421 Plan: Assessment and Recommendations: Lymphoma: See HPI for full history of diagnosis and prior treatments - Recent treatment with CHP adentris status post cycle 3 on 05/01/20 and discontinued due to progression - Now admitted for Cycle one of ICE, Udencya on Friday in office. Daily CBC with Diff, CMP, Mag, Phos, Uric acid Monitor for TLS Monitor Daily Urine Dipstick for RBCs, >3+ contact Hematology Recent Admission due to Persistent Right Hydronephrosis caused from Progressive Mass Effect: - Status Post Radiation by Dr. Russo Right inguinal, left back and leg pain: - Continue symptom management and supportive care - Add Bowel regimen with narcotic pain management - Senna S and miralax. - Status Post Palliative Radiation to painful tumor Plan: - Continue Day 2 of ICE - Supportive Care - Daily Bloodwork Physician Attest: I have completed the full history and physical and agree with above dictation, dictated as a scribe.
[2020-07-18 13:21] VITALS: BMI 38.0
[2020-07-18] MEDS ORDERED: IFOSFAMIDE IV ONE (14:00)
[2020-07-18] MEDS ORDERED: MESNA IV ONE (14:00)
[2020-07-18] MEDS ORDERED: SODIUM CHLORIDE 0.9% IV ONE ×3 (14:00)
[2020-07-18] MEDS ORDERED: CARBOPLATIN IV ONE (14:00)
[2020-07-18] MEDS: DEXAMETHASONE SOD PHOSPHATE 10 MG/ML 1 ML VIAL IV SCH (14:14)
[2020-07-18] MEDS: ONDANSETRON 16 MG in SODIUM CHLORIDE 0.9% 50 ML IVPB SCH (14:14)
[2020-07-18] MEDS: FAMOTIDINE 20 MG/2 ML VIAL IV SCH (14:16)
[2020-07-18] MEDS: ETOPOSIDE IV SCH (15:12)
[2020-07-18] MEDS: SODIUM CHLORIDE 0.9% IV SCH (15:12)
[2020-07-18] MEDS: QUEtiapine 200 MG TAB PO SCH (20:53)
[2020-07-18] MEDS: HYDROcodone/APAP 10-325MG 1 EACH TAB PO PRN (20:58)
[2020-07-19 05:11] LABS: Basophils % (A) 0 %; Eosinophils % (A) 0 %; HCT 37.5 % (39.0-53.0); HGB 12.6 gm/dL (13.0-17.5); Lymphocytes # (A) 0.1 k/uL (1.0-4.8); Lymphocytes % (A) 2 %; MCH 32.9 pg (25.0-35.0); MCHC 33.5 g/dL (31.0-37.0); MCV 98.2 fL (80.0-100.0); Monocytes # (A) 0.3 k/uL (0-1.0); Monocytes % (A) 5 %; Neutrophils % (A) 92 %; Platelet Count 129 k/uL (150-450); RBC 3.82 m/uL (4.30-5.90); RDW 14.4 % (11.5-15.5); WBC 5.4 k/uL (3.8-10.6)
--- NOTE | 2020-07-19 05:37 | CONS ---
CONSULTATION Day 2 of chemo in the hospital for refractory lymphoma. Tolerating regimen well. No complaints. No chest pain, shortness of breath. No lightheadedness, dizziness or syncope. Temperature 98.2, pulse 67, respiratory rate 16 to 18, blood pressure 143/87, oxygen level is 100%. He is alert and oriented x3. ENDOCRINE: BMI is over 30. HEAD: Normocephalic, atraumatic. Pupils equal, round, reactive. CARDIAC: Heart S1, S2. LUNGS: Are clear. ABDOMEN: Is soft, nontender. EXTREMITIES: No cyanosis, clubbing, edema. NEUROLOGIC: Cranial nerves are intact. PSYCH: Calm and cooperative. ASSESSMENT: Lymphoma, non-Hodgkin's lymphoma, status post 51 radiation treatments. Cycle 1 of ICE. Udencya on Friday. Possibly discharge home in next 24 to 48 hours. Continue home medicines. He is medically stable at this point. MMODL / IJN: [id number] /
[2020-07-19] MEDS: SODIUM CHLORIDE 0.9% 1,000 ML IV SCH ×3 (05:45→16:38)
[2020-07-19 09:52] LABS: African American GFR (CKD) 86.5 (60.0-200.0); Albumin 3.8 g/dL (3.80-4.90); Albumin/Globulin Ratio 2.53 (1.60-3.17); Anion Gap 5.6 mmol/L (4.00-12.00); BUN/Creat Ratio 15.45 Ratio (12.00-20.00); Calcium 8.2 mg/dL (8.7-10.3); Carbon Dioxide 21.4 mmol/L (21.6-31.8); Globulin 1.5 g/dL (1.6-3.3); Magnesium 1.7 mg/dL (1.5-2.4); Non-African American GFR(CKD) 74.6 (60.0-200.0); Phosphorus 2.7 mg/dL (2.4-5.1); Potassium 4.6 mmol/L (3.5-5.5); Total Bilirubin 0.2 mg/dL (0.2-1.2); Total Protein 5.3 g/dL (6.2-8.2); Uric Acid 4.6 mg/dL (3.7-8.7)
[2020-07-19] MEDS: SERTRALINE 100 MG TAB PO SCH (11:07)
[2020-07-19] MEDS: SENNOSIDES-DOCUSATE SODIUM 1 EACH TAB PO SCH (11:07)
[2020-07-19] MEDS: busPIRone HCl 10 MG TAB PO SCH (11:07)
[2020-07-19] MEDS: PANTOPRAZOLE 40 MG TABLET PO SCH (11:07)
[2020-07-19] MEDS: QUEtiapine 100 MG TAB PO SCH (11:08)
[2020-07-19] MEDS: ENOXAPARIN 40 MG/0.4 ML SYRINGE SQ SCH (11:08)
[2020-07-19] MEDS: allopurinoL 300 MG TAB PO SCH (11:09)
[2020-07-19 12:36] VITALS: BP 129/80; PULSE 76; RESP 19; TEMP 98
--- NOTE | 2020-07-19 14:28 | P.PN ---
Subjective Progress Note Date: 07/19/20 Principal diagnosis: Refractory Lymphoma Day 3 of ICE, tolerating well. CBC is stable without need of intervention. Objective - Vital Signs Vital signs: Vital Signs Temp 98 F 07/19/20 12:00 Pulse 76 07/19/20 12:00 Resp 19 07/19/20 12:00 BP 129/80 07/19/20 12:00 Pulse Ox 100 07/19/20 12:00 Intake & Output 07/18/20 07/19/20 07/19/20 18:59 06:59 18:59 Intake Total 1984 840 Balance 1984 Weight 127.323 kg Intake: Oral 1984 Other: # Voids 2 4 - Exam General: Alert and Oriented x3, No Acute Distress Head: Normocytic, Atraumatic Neck: Supple Mouth: No Lesions, No Thrush Eyes: Non-sclerotic No Palpable cervical, supraclavicular, axillary adenopathy Heart: Regular Rate, Regular Rhythm Lungs: Clear to Ausculations, No Wheeze, No Rhonchi, Diminishe bilateral lower lobes, No increased respiratory effort noted Abdomen: Soft, Non-Distended, Non-Tended, BSx4 Extremities: No Edema, Equal Strength Neurological: No Focal Defects: No sensory or motor deficits noted Psych: Calm and cooperative - Labs CBC & Chem 7: 07/19/20 04:48 07/19/20 04:48 Labs: Abnormal Lab Results - Last 24 Hours (Table) 07/19/20 07/19/20 Range/Units 04:48 04:48 RBC 3.82 L (4.30-5.90) m/uL Hgb 12.6 L (13.0-17.5) gm/dL Hct 37.5 L (39.0-53.0) % Plt Count 129 L (150-450) k/uL Lymphocytes # 0.1 L (1.0-4.8) k/uL Chloride 114 H (96-109) mmol/L Carbon Dioxide 21.4 L (21.6-31.8) mmol/L Calcium 8.2 L (8.7-10.3) mg/dL Total Protein 5.3 L (6.2-8.2) g/dL Globulin 1.5 L (1.6-3.3) g/dL Assessment and Plan (1) Lymphoma Current Visit: No Status: Acute Code(s): C85.90 - NON-HODGKIN LYMPHOMA, UNSPECIFIED, UNSPECIFIED SITE SNOMED Code(s): 821188586 (2) Non-Hodgkin's lymphoma in adult Current Visit: No Status: Chronic Priority: Medium Code(s): C85.90 - NON- HODGKIN LYMPHOMA, UNSPECIFIED, UNSPECIFIED SITE SNOMED Code(s): 314087346 Plan: Assessment and Recommendations: Lymphoma: Refractory See HPI for full history of diagnosis and prior treatments - Recent treatment with CHP adentris status post cycle 3 on 05/01/20 and discontinued due to progression - Now admitted for Cycle one of ICE, [place] on Friday in office. Daily CBC with Diff, CMP, Mag, Phos, Uric acid Monitor for TLS Monitor Daily Urine Dipstick for RBCs, >3+ contact Hematology Recent Admission due to Persistent Right Hydronephrosis caused from Progressive Mass Effect: - Status Post Radiation by Dr. Russo Right inguinal, left back and leg pain: - Continue symptom management and supportive care - Add Bowel regimen with narcotic pain management - Senna S and miralax. - Status Post Palliative Radiation to painful tumor Plan: - Continue Day 3 of ICE - Supportive Care - Daily Bloodwork - MM for all other medical health history (Depression) per Dr. Huffman Physician Attest: I have completed the full history and physical and agree with above dictation, dictated as a scribe.
[2020-07-19] MEDS: ONDANSETRON 16 MG in SODIUM CHLORIDE 0.9% 50 ML IVPB SCH (16:20)
[2020-07-19] MEDS: FAMOTIDINE 20 MG/2 ML VIAL IV SCH (16:26)
[2020-07-19] MEDS: DEXAMETHASONE SOD PHOSPHATE 10 MG/ML 1 ML VIAL IV SCH (16:26)
[2020-07-19] MEDS: ETOPOSIDE IV SCH (16:54)
[2020-07-19] MEDS: SODIUM CHLORIDE 0.9% IV SCH (16:54)
--- NOTE | 2020-07-19 17:23 | PN ---
PROGRESS NOTE A 55-year-old white male remains, remains on psych medicines Seroquel, his pain medicine p.r.n., MS Contin, BuSpar for anxiety. Zyloprim for gout prevention, and Zoloft for depression. He is getting his medications refilled at this time. He has last dose of chemo, possibly being discharged home tonight as his white count stabilized at 5 4, hemoglobin 12.6. BUN and creatinine are good. Sodium, potassium is normal. He is sitting. He is laughing, talking, while in good spirits. Lungs are clear. CARDIOVASCULAR: S1, S2. Saturations are good. Vitals are good. He possibly can be discharged home tonight, status post his last chemotherapy if he does well tonight. MMODL / IJN: [id number] /
== END 2020-07-19 19:33 | disposition home or self-care (01) | DRG 847 ==
LOC: 6NMEDSUR 08:01
PROVIDERS: ADMIT Internal Medicine Hematology & Oncology; ATTEND Internal Medicine Hematology & Oncology
DX: Z51.11 Encounter for antineoplastic chemotherapy (principal); N13.30 Unspecified hydronephrosis; C83.38 Diffuse large B-cell lymphoma, lymph nodes of multiple sites; J44.9 Chronic obstructive pulmonary disease, unspecified; N13.9 Obstructive and reflux uropathy, unspecified; F17.210 Nicotine dependence, cigarettes, uncomplicated; K21.9 Gastro-esophageal reflux disease without esophagitis; K57.90 Diverticulosis of intestine, part unspecified, without perforation or abscess without bleeding; E66.9 Obesity, unspecified; G89.3 Neoplasm related pain (acute) (chronic); F32.9 Major depressive disorder, single episode, unspecified; F41.9 Anxiety disorder, unspecified; Z68.38 Body mass index [BMI] 38.0-38.9, adult; Z79.899 Other long term (current) drug therapy; Z87.19 Personal history of other diseases of the digestive system; Z87.11 Personal history of peptic ulcer disease; Z92.3 Personal history of irradiation; Z86.14 Personal history of Methicillin resistant Staphylococcus aureus infection; Z91.048 Other nonmedicinal substance allergy status; Z91.040 Latex allergy status; Z82.49 Family history of ischemic heart disease and other diseases of the circulatory system; Z82.0 Family history of epilepsy and other diseases of the nervous system
CPT/HCPCS: 80053; 83735; 84100; 84550; 85025

== ENCOUNTER 2020-07-25 17:35 | Observation (INO) | payer OTHER ==
--- NOTE | 2020-07-25 17:45 | ED ---
Recheck HPI - General Stated Complaint: NVD,Chemo pt Time Seen by Provider: 07/25/20 17:39 Source: RN notes reviewed, old records reviewed Limitations: no limitations - History of Present Illness Initial Comments: This is a 55-year-old male DF for evaluation presents today for evaluation of persistent nausea and vomiting. Known cancer chemo patient coming in for intractable nausea vomiting, abdominal pain. Patient is travel history no sick contacts no fevers. Patient is accepted as a transfer from [facility] for these evaluations upon discharge on [place] started actively vomiting again and was sent to our ER for further management. MD Complaint: other (Intractable nausea and vomiting) -: days(s) Returns Today for: persistent/worsening pain related to initial visit, other (Worsening nausea and vomiting) Symptoms Since Prior Visit: worsening pain Context: planned re-check (Sent DF for evaluation regarding persistent symptoms) Associated Symptoms: malaise, nausea, abdominal pain Treatments Prior to Arrival: Given Pain Meds on, other (Symptomatic therapy) - Related Data Home Medications Medication Instructions Recorded Confirmed Ondansetron [Zofran] 4 mg PO Q8H PRN 05/15/20 07/17/20 Sertraline [Zoloft] 200 mg PO DAILY 05/15/20 07/17/20 HYDROcodone/APAP 10-325MG [[place] 1 tab PO Q4H PRN 07/17/20 07/17/20 10-325] Morphine Sulfate ER [Ms Contin] 15 mg PO Q8H PRN 07/17/20 07/17/20 Omeprazole 40 mg PO DAILY 07/17/20 07/17/20 QUEtiapine XR [SEROquel XR] 150 mg PO DAILY 07/17/20 07/17/20 QUEtiapine XR [SEROquel XR] 200 mg PO HS 07/17/20 07/17/20 busPIRone HCL 15 mg PO DAILY 07/17/20 07/17/20 Previous Rx's Medication Instructions Recorded allopurinoL [Zyloprim] 300 mg PO DAILY tab 07/19/20 Allergies Allergy/AdvReac Type Severity Reaction Status Date / Time adhesive tape Allergy RED SKIN Verified 05/15/20 13:45 AND BLISTERS latex Allergy Rash/Hives Verified 05/15/20 13:45 ragweed pollen Allergy Wheezing Verified 05/15/20 13:45 Review of Systems ROS Statement: Those systems with pertinent positive or pertinent negative responses have been documented in the HPI. ROS Other: All systems not noted in ROS Statement are negative. Past Medical History Past Medical History: Cancer, COPD, GERD/Reflux, GI Bleed Additional Past Medical History / Comment(s): Non hodgkins lymphoma/R hydronephrosis/pelvic mass recently finished 20 radiation treatments/receiving chemotherapy, R chest wound nearly healed (chemo extravasation), bronchitis, past stomach ulcer, upper and lower GI bleeds, diverticular disease, constipation. History of Any Multi-Drug Resistant Organisms: MRSA Date of last positivie culture/infection: 06/03/19 MDRO Source:: chest wall Past Surgical History: No Surgical Hx Reported Additional Past Surgical History / Comment(s): R supraclavicular lymph node bx, bone marrow aspiration/bx, R iliac lymph node bx, R chest port/removed then had wound debridement/wound vac, L chest wall port, colonoscopy. Past Anesthesia/Blood Transfusion Reactions: No Reported Reaction Additional Past Anesthesia/Blood Transfusion Reaction / Comment(s): Pt has received blood in past without reaction. Smoking Status: Current every day smoker - Past Family History Father Family Medical History: Coronary Artery Disease (CAD) Additional Family Medical History / Comment(s): Father has a cardiac stent. Mother Family Medical History: No Reported History Additional Family Medical History / Comment(s): Mother from dementia. General Exam General appearance: alert, in no apparent distress Head exam: Present: atraumatic, normocephalic, normal inspection Eye exam: Present: normal appearance, PERRL, EOMI. Absent: scleral icterus, conjunctival injection, periorbital swelling ENT exam: Present: normal exam, mucous membranes moist Neck exam: Present: normal inspection. Absent: tenderness, meningismus, lymphadenopathy Respiratory exam: Present: normal lung sounds bilaterally. Absent: respiratory distress, wheezes, rales, rhonchi, stridor Cardiovascular Exam: Present: regular rate, normal rhythm, normal heart sounds. Absent: systolic murmur, diastolic murmur, rubs, gallop, clicks GI/Abdominal exam: Present: soft, normal bowel sounds. Absent: distended, tenderness, guarding, rebound, rigid Extremities exam: Present: normal inspection, full ROM, normal capillary refill. Absent: tenderness, pedal edema, joint swelling, calf tenderness Back exam: Present: normal inspection Neurological exam: Present: alert, oriented X3, CN II-XII intact Psychiatric exam: Present: normal affect, normal mood Skin exam: Present: warm, dry, intact, normal color. Absent: rash Course Vital Signs 07/25/20 17:37 Temperature 98.3 F Pulse Rate 74 Respiratory 16 Rate Blood Pressure 124/79 O2 Sat by Pulse 96 Oximetry - Reevaluation(s) Reevaluation #1: 07/25/20 18:17 Medical record is reviewed 07/25/20 18:17 Patient's transfer paperwork is reviewed 07/25/20 18:17 I did speak with patient's transferring physician Reevaluation #2: 07/25/20 18:17 Patient has no active current nausea and vomiting - Consultations Consultation #1: Spoke with Dr. Leroy who agrees to admit this patient Medical Decision Making - Medical Decision Making 55 male DF for evaluation of persistent nausea vomiting chemo related, patient was right sternal normal limits, patient did have a CT head and pelvis is also negative patient persistent vomiting in the ER despite therapy Disposition Clinical Impression: Lymphoma, Pancytopenia, Dehydration, Gastroenteritis, Intractable cyclical vomiting with nausea Disposition: ADMITTED IP TO THIS HOSP Condition: Good Is patient prescribed a controlled substance at d/c from ED?: No
[2020-07-25] MEDS ORDERED: ONDANSETRON 4 MG/2 ML VIAL IVP PRN (17:58)
[2020-07-25] MEDS ORDERED: METOCLOPRAMIDE 5 MG/ML 2 ML VIAL IVP PRN (17:58)
[2020-07-25] MEDS ORDERED: PANTOPRAZOLE 40 MG/10 ML VIAL IVP STA (17:58)
[2020-07-25] MEDS ORDERED: diphenhydrAMINE 50 MG/ML 1 ML VIAL IVP PRN (17:58)
[2020-07-25] MEDS ORDERED: ONDANSETRON 4 MG/2 ML VIAL IVP STA (17:58)
[2020-07-25] MEDS ORDERED: LORazepam 2 MG/ML INJ IV PRN (17:59)
[2020-07-25] MEDS ORDERED: ONDANSETRON 4 MG TAB PO PRN (20:38)
[2020-07-25] MEDS ORDERED: HYDROcodone/APAP 10-325MG 1 EACH TAB PO PRN (20:38)
[2020-07-25] MEDS ORDERED: MORPHINE SULFATE ER 15 MG TABLET PO PRN (20:38)
[2020-07-25] MEDS ORDERED: hydrALAZINE HCL 20 MG/ML 1 ML VIAL IVP PRN (20:44)
[2020-07-25] MEDS: QUEtiapine 100 MG TAB PO SCH (21:38)
[2020-07-25] MEDS: SODIUM CHLORIDE 0.9% 1,000 ML IV SCH (21:38)
[2020-07-25] MEDS: QUEtiapine 25 MG TAB PO SCH (21:39)
[2020-07-26 07:33] VITALS: BP 126/79; PULSE 88; RESP 14; TEMP 98.7
[2020-07-26] MEDS: QUEtiapine 100 MG TAB PO SCH (07:50)
[2020-07-26] MEDS: QUEtiapine 25 MG TAB PO SCH (07:50)
[2020-07-26] MEDS: SODIUM CHLORIDE 0.9% 1,000 ML IV SCH (07:55)
[2020-07-26 08:48] LABS: HCT 37.3 % (39.0-53.0); HGB 12.3 gm/dL (13.0-17.5); MCH 32.4 pg (25.0-35.0); MCHC 32.9 g/dL (31.0-37.0); MCV 98.3 fL (80.0-100.0); Mean Platelet Volume 7.6; RDW 13.7 % (11.5-15.5)
[2020-07-26 08:51] LABS: Albumin 4.2 g/dL (3.5-5.0); Calcium 8.8 mg/dL (8.4-10.2); Total Protein 6.5 g/dL (6.3-8.2); WBC 0.5 k/uL (3.8-10.6)
[2020-07-26] MEDS ORDERED: SERTRALINE 100 MG TAB PO SCH (09:00)
[2020-07-26] MEDS ORDERED: PANTOPRAZOLE 40 MG/10 ML VIAL IVP SCH (09:00)
[2020-07-26] MEDS ORDERED: NON FORMULARY DRUG (Omeprazole [Omeprazole] 40 MG Capsule.Dr) PO SCH (09:00)
[2020-07-26] MEDS ORDERED: busPIRone HCl 5 MG TAB PO SCH (09:00)
[2020-07-26 09:05] LABS: Platelet Count 48 k/uL (150-450)
--- NOTE | 2020-07-26 10:27 | HP ---
HISTORY AND PHYSICAL A 55-year-old white male with history of non-Hodgkin's lymphoma, persistent nausea, vomiting. No cancer chemo patient, intractable nausea, vomiting, abdominal pain, transfer from [place] due to progressive vomiting. Wait for GI consultation. Home medicines is Zofran, Zoloft, MS Contin, [place], omeprazole, Seroquel XR, BuSpar. ALLERGIES: ADHESIVE, LATEX, . 14-point review of systems negative other than HPI, otherwise negative. PAST MEDICAL HISTORY: GERD, GI bleed, COPD, cancer, non-Hodgkin's lymphoma history, 20 radiation treatments recently with chemotherapy, right chest healed upper chest lesion, history of MRSA, history of an iliac node biopsies, right supraclavicular lymph node biopsy. FAMILY HISTORY: Father who had coronary artery disease. Mother with dementia. PHYSICAL EXAMINATION: Obese, white male in no acute distress. HEAD: Normocephalic, atraumatic. Pupils equal, round, reactive. ENT external ear canals normal. NECK: Supple, no mass. RESPIRATORY: Normal lung sounds. CARDIOVASCULAR: Regular rate and rhythm. GI: Soft, nontender. Normal bowel sounds. EXTREMITIES: No cyanosis, clubbing, edema. BACK: Normal inspection. NEUROLOGIC: cranial nerves are intact. PSYCH: Fair mood and affect. Temperature 98.3, pulse 70 to 74, respiratory rate 16 to 18, blood pressure 120s/70s, O2 is 96. ASSESSMENT: Lymphoma, pancytopenia, dehydration, gastroenteritis, irretractable cyclic vomiting with nausea. Admit the patient for rehydration, electrolyte replacement, consult Dr. Pak, n.p.o. continue home medications. Please see further orders. MMODL / IJN: [id number] /
--- NOTE | 2020-07-26 18:32 | P.CONS ---
History of Present Illness - Reason for Consult Consult date: 07/26/20 intractable nausea vomiting, NHL on chemotherapy - History of Present Illness Mister Lamb is a 55 yr old white male, initially seen in consult on 12/15/18. He had presented to [facility] with complaints of persistent fatigue, and progressively increasing shortness of breath on exertion. He had had a weight loss of about 30 pounds in the prior 3-4 months. Imaging at [facility] revealed evidence of obstructive uropathy and diffuse adenopathy above and below the diaphragm.. On examination he appeared to have right supraclavicular nodes are palpable, at least about 2 cm. he underwent a right supraclavicular lymph node biopsy on 12/16/18, and was then discharged. 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 This was sent to the [facility] for a consultation. 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 ALK testing was negative. Be an T-cell rearrangement studies were ordered. Surprisingly B cell gene rearrangement, IGH an IgG daily for clonal, while T-cell rearrangements were negative. 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 the patient had a bone marrow aspiration biopsy on 01/15/19. A PET scan was ordered but the patient did not keep that appointment. he was also referred to the [facility], part the appointment was delayed due to to have not having insurance. This was scheduled for 02/08/19 His bone marrow showed significant involvement with lymphoma. Gene rearrangement studies did not show B or T cell markers!! The pt however got admitted to [facility] with progressive symptoms. He was thus started on EPOCH inpt on 02/07/19. His stay was complicated by extravasation of chemo causing soft tissue damage in the rt upper chest wall.Fortunately there was no deep tissue necrosis, and this was treated supportively. He continued chemo with a LUE PICC line. He was readmitted after C 2 with thrush, mucositis and febrile neutropenia after C 2, and improved with supportive care. PET scan post C 2 was delayed as the pt did not get it done. He had that on 04/10/19. This showed resolution of FDG activity above the diaphragm, and in the upper abdomen. However, adenopathy along the rt iliac chain showed increase, wth persistent marked uptake. He had a repeat biopsy revealing NHL. the patient was seen at the [facility] by Dr. Pierson and case reviewed. It was recommended that the patient did have a significant response, and should continue with the chemotherapy, with Cytoxan/Adriamycin/Brentuximab/Prednisone combination targeting CD30. he started the same on 06/22/19 and is s/p 2 cycles. He was admitted after cycle 1 for febrile neutropenia. He also developed breakdown of soft tissue along the chest wall and had his port removed as well as debridement. G-CSF was added with cycle 2. the patient had also been referred to bone marrow transplant at the [facility] and was ultimately seen there on 07/27/19. They informed us that his biopsy from the right iliac lymph node had been obtained and reviewed at the [facility]. the report was formalized after his consultation there in 06/24, and had indicated that this was actually a B-cell lymphoma! His slides from his other biopsies were requested for comparison at the [facility]. This was on hold as the pt delayed coming in for signing the release form, but was ultimately done. His prior slides were subsequently received and reviewed at the [facility]. Case was discussed with the pathologist. 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 Treatment had to be placed on hold because of active wound in the right upper chest wall with slow healing. Repeat CT scan from 10/25 showed essentially stable findings with persistent terence mass in the right iliac area. the patient was continued on observation, with repeat CT scans in late 12/23 again showing stable findings. the patient was referred back to [facility] and seen there in 02/22. It was recommended that he resume chemotherapy with the same regimen. Chest wall lesion continued to improve and healing was finally felt to be satisfactory by 03/25. He resumed CHP-Adcetris on 04/12/20 and is status post 2 cycles (total 4) when seen in the office after cycle 2 he was complaining of significant right- sided abdominal pain. He was admitted to the hospital with CT scans revealing likely progression in the right pelvic mass with some increase in adjacent adenopathy. He was treated symptomatically for pain control. He was seen by urology during that visit, and not felt to be a candidate for stenting for his right hydronephrosis, as this was chronic and not felt to be the source of his pain. Renal function was also normal. Post discharge patient had a PET scan on 05/26/20. This confirmed marked uptake with increase in size of the right pelvic mass and adjacent lymph nodes. There was also increased uptake noted in the left base of tongue, and right submandibular node. Mediastinal nodes, however, showed improvement compared to before The patient was referred for radiation to the large right pelvic mass which was the main site of progression. He completed the same at [facility] with dramatic improvement. Case was again reviewed with [facility], and it was commented that he start salvage chemotherapy with ICE. He was admitted for cycle 1 of ICE on 05/17/20. He had no cough medication during hospitalization and was discharged after completion of chemotherapy. He received Neulasta on 05/21/20. The patient states that since discharge he has been having some nausea, and burning in the upper abdomen, worse with certain foods. He developed overt nausea and vomiting yesterday and went to [facility]. He seemed to improve initially with supportive treatment but then developed recurrent vomiting and was transferred here. He denied any fevers, or change in bowel habits. At the time of evaluation the patient was feeling better. Consult was placed for further evaluation and recommendations Review of Systems Constitutional: Reports chronic pain, Reports fatigue, Reports weakness Eyes: denies blurred vision, denies pain Ears: deny: decreased hearing, ear discharge, earache, tinnitus Ears, nose, mouth and throat: Denies headache, Denies sore throat Cardiovascular: Reports decreased exercise tolerance Respiratory: Denies cough Gastrointestinal: Reports abdominal pain, Reports dyspepsia, Reports nausea, Reports vomiting Genitourinary: Reports as per HPI Musculoskeletal: Reports muscle weakness Integumentary: Reports as per HPI, Reports wounds (right chest wall, stable) Neurological: Reports weakness Psychiatric: Reports as per HPI, Reports anxiety, Reports difficulty concentrating, Reports paranoia Endocrine: Reports fatigue Hematologic/Lymphatic: Reports as per HPI Past Medical History Past Medical History: Cancer, COPD, GERD/Reflux, GI Bleed Additional Past Medical History / Comment(s): Non hodgkins lymphoma/R hydronephrosis/pelvic mass recently finished 20 radiation treatments/receiving chemotherapy, R chest wound nearly healed (chemo extravasation), bronchitis, past stomach ulcer, upper and lower GI bleeds, diverticular disease, constipation. History of Any Multi-Drug Resistant Organisms: MRSA Year Discovered:: 06/03/19 MDRO Source:: chest wall Past Surgical History: No Surgical Hx Reported Additional Past Surgical History / Comment(s): R supraclavicular lymph node bx, bone marrow aspiration/bx, R iliac lymph node bx, R chest port/removed then had wound debridement/wound vac, L chest wall port, colonoscopy. Past Anesthesia/Blood Transfusion Reactions: No Reported Reaction Additional Past Anesthesia/Blood Transfusion Reaction / Comm: Pt has received blood in past without reaction. Past Psychological History: ADD/ADHD, Anxiety, Bipolar, Depression Additional Psychological History / Comment(s): Pt resides with his father. He states he feels he could benefit from some home care. Has difficulty managing meds at times/performing ADLS at times. No longer drives, he gets rides thru his insurance company. Smoking Status: Current every day smoker Past Alcohol Use History: None Reported Additional Past Alcohol Use History / Comment(s): STARTED SMOKING AT AGE 14 HAS QUIT ON AND OFF CURRENTLY SMOKING 1/2PPD Past Drug Use History: None Reported Additional Drug Use History / Comment(s): Pt uses marijuana lately as a vapor for nausea - Past Family History Father Family Medical History: Coronary Artery Disease (CAD) Additional Family Medical History / Comment(s): Father has a cardiac stent. Mother Family Medical History: No Reported History Additional Family Medical History / Comment(s): Mother from dementia. Medications and Allergies Home Medications Medication Instructions Recorded Confirmed Type Ondansetron [Zofran] 4 mg PO Q8H PRN 05/15/20 07/25/20 History Sertraline [Zoloft] 200 mg PO DAILY 05/15/20 07/25/20 History HYDROcodone/APAP 10-325MG [[place] 1 tab PO Q4H PRN 07/17/20 07/25/20 History 10-325] Morphine Sulfate ER [Ms Contin] 15 mg PO Q8H PRN 07/17/20 07/25/20 History Omeprazole 40 mg PO DAILY 07/17/20 07/25/20 History QUEtiapine XR [SEROquel XR] 150 mg PO DAILY 07/17/20 07/25/20 History QUEtiapine XR [SEROquel XR] 200 mg PO HS 10/12/20 10/20/20 History busPIRone HCL [Buspar] 15 mg PO DAILY 07/25/20 07/25/20 History Allergies Allergy/AdvReac Type Severity Reaction Status Date / Time adhesive tape Allergy RED SKIN Verified 07/25/20 18:36 AND BLISTERS latex Allergy Rash/Hives Verified 07/25/20 18:36 ragweed pollen Allergy Wheezing Verified 07/25/20 18:36 Physical Exam Vitals: Vital Signs Temp Pulse Resp BP Pulse Ox 07/26/20 07:31 98.7 F 88 14 126/79 97 07/26/20 03:10 98.4 F 79 16 110/71 93 L 07/25/20 22:57 104/69 07/25/20 18:39 97.9 F 83 14 176/100 99 Intake and Output 07/26/20 07/26/20 07/26/20 06:59 14:59 22:59 Other: # Voids 2 - Constitutional General appearance: no acute distress - EENT Eyes: EOMI, PERRLA ENT: hearing grossly normal, normal oropharynx - Neck Neck: no lymphadenopathy Thyroid: bilateral: normal size - Respiratory Respiratory: bilateral: CTA - Cardiovascular Rhythm: regular Heart sounds: normal: S1, S2 - Gastrointestinal General gastrointestinal: normal bowel sounds, soft - Integumentary Right chest wall wound, now healed with chronic scarring. 1.5 cm ulcerated sca bbed area in the inferior aspect, stable Mild erythema with skin exfoliation in both groin areas, postradiation, improved - Neurologic Neurologic: CNII-XII intact - Musculoskeletal Musculoskeletal: generalized weakness, strength equal bilaterally - Psychiatric Psychiatric: A&O x's 3, appropriate affect Results CBC & Chem 7: 07/26/20 08:00 07/26/20 08:00 Labs: Abnormal Lab Results - Last 24 Hours (Table) 07/26/20 07/26/20 Range/Units 08:00 08:00 WBC 0.5 L* (3.8-10.6) k/uL RBC 3.80 L (4.30-5.90) m/uL Hgb 12.3 L (13.0-17.5) gm/dL Hct 37.3 L (39.0-53.0) % Plt Count 48 L D (150-450) k/uL Chloride 109 H (98-107) mmol/L Creatinine 1.35 H (0.66-1.25) mg/dL Glucose 103 H (74-99) mg/dL Assessment and Plan (1) Intractable cyclical vomiting with nausea Narrative/Plan: This is occurred after completion of chemotherapy. This is associated with significant burning in the stomach and seems to be set up by eating. Most likely this is due to chemotherapy induced gastritis. The patient is improved with supportive treatment. He can discharge if he tolerates breakfast and lunch today. Continue using Zofran when necessary. He was advised to use it more aggressively as he was only utilizing it 2- 3 times a day. In addition I recommended starting the patient on PPI twice a day as well as Carafate twice a day, and continue that through chemotherapy. Status: Acute Code(s): R11.15 - CYCLICAL VOMITING SYNDROME UNRELATED TO MIGRAINE SNOMED Code(s): 42884238 (2) Pancytopenia Narrative/Plan: Due to antineoplastic chemotherapy. WBC is markedly low but the patient has already received Neulasta on 07/21/20. Hemoglobin and platelets are in a safe range. Patient will follow-up in the office for routine blood draw next week Status: Acute Code(s): D61.818 - OTHER PANCYTOPENIA SNOMED Code(s): 750303543 (3) Lymphoma Narrative/Plan: The patient will resume second cycle of chemotherapy on scheduled assuming no new issues occur. Status: Acute Code(s): C85.90 - NON-HODGKIN LYMPHOMA, UNSPECIFIED, UNSPECIFIED SITE SNOMED Code(s): 464341922
== END 2020-07-26 14:15 | disposition home or self-care (01) ==
LOC: EC 17:35 → 1SOBS 17:58
PROVIDERS: ADMIT Family Medicine; ATTEND Family Medicine
DX: E86.0 Dehydration (principal); R11.15 Cyclical vomiting syndrome unrelated to migraine; C85.90 Non-Hodgkin lymphoma, unspecified, unspecified site; D61.810 Antineoplastic chemotherapy induced pancytopenia; E66.9 Obesity, unspecified; Z68.38 Body mass index [BMI] 38.0-38.9, adult; K21.9 Gastro-esophageal reflux disease without esophagitis; Z87.19 Personal history of other diseases of the digestive system; F31.9 Bipolar disorder, unspecified; F41.9 Anxiety disorder, unspecified; J44.9 Chronic obstructive pulmonary disease, unspecified; Z92.3 Personal history of irradiation; Z86.14 Personal history of Methicillin resistant Staphylococcus aureus infection; Z98.890 Other specified postprocedural states; Z81.8 Family history of other mental and behavioral disorders; Z82.49 Family history of ischemic heart disease and other diseases of the circulatory system; Z79.891 Long term (current) use of opiate analgesic; Z79.899 Other long term (current) drug therapy; Z91.040 Latex allergy status; Z91.09 Other allergy status, other than to drugs and biological substances
CPT/HCPCS: 96374; 96375; 96376; 99285; 80053; 85025; G0378 ×2; J1200; J2765; J2405; C9113 ×2

== ENCOUNTER 2020-08-17 09:20 | Inpatient (IN) | payer OTHER ==
[2020-08-17] MEDS: SODIUM CHLORIDE 0.9% 1,000 ML IV SCH ×2 (11:13→21:20)
[2020-08-17] MEDS ORDERED: ONDANSETRON 4 MG TAB PO PRN (12:04)
[2020-08-17] MEDS: HYDROcodone/APAP 10-325MG 1 EACH TAB PO PRN (12:33)
[2020-08-17 12:51] LABS: ALT 28 U/L (4-49); AST 34 U/L (17-59); African American GFR (CKD) >90 (>60 ml/min/1.73 sqM); Albumin 3.8 g/dL (3.5-5.0); Albumin/Globulin Ratio 1.7; Alkaline Phosphatase 62 U/L (38-126); Anion Gap 4 mmol/L; Blood Urea Nitrogen 19 mg/dL (9-20); Calcium 8.6 mg/dL (8.4-10.2); Carbon Dioxide 28 mmol/L (22-30); Chloride 108 mmol/L (98-107); Globulin 2.3 g/dL; Glucose 104 mg/dL (74-99); LDH 404 U/L (313-618); Non-African American GFR(CKD) 84 (>60 ml/min/1.73 sqM); Phosphorus 3.6 mg/dL (2.5-4.5); Potassium 4.5 mmol/L (3.5-5.1); Sodium 140 mmol/L (137-145); Total Bilirubin 0.3 mg/dL (0.2-1.3); Total Protein 6.1 g/dL (6.3-8.2); Uric Acid 4.9 mg/dL (3.5-8.5)
[2020-08-17 12:52] LABS: Anisocytosis Slight; Basophils % (A) 0 %; Eosinophils # (A) 0.1 k/uL (0-0.7); Eosinophils % (A) 2 %; HGB 11.3 gm/dL (13.0-17.5); Lymphocytes # (A) 0.3 k/uL (1.0-4.8); Lymphocytes % (A) 9 %; MCH 32.6 pg (25.0-35.0); MCHC 32.3 g/dL (31.0-37.0); MCV 101.1 fL (80.0-100.0); Macrocytosis Slight; Mean Platelet Volume 6.7; Monocytes # (A) 0.3 k/uL (0-1.0); Monocytes % (A) 10 %; Neutrophils # (A) 2.7 k/uL (1.3-7.7); Neutrophils % (A) 77 %; RBC 3.46 m/uL (4.30-5.90); RDW 16.8 % (11.5-15.5); WBC 3.5 k/uL (3.8-10.6)
[2020-08-17 12:56] LABS: Platelet Count 200 k/uL (150-450)
--- NOTE | 2020-08-17 13:55 | P.HPIM ---
History of Present Illness H&P Date: 08/17/20 Chief Complaint: Timed Chemo Mister Lamb is a 55 yr old white male, initially seen in consult on 12/15/18. He had presented to [facility] with complaints of persistent fatigue, and progressively increasing shortness of breath on exertion. He had had a weight loss of about 30 pounds in the prior 3-4 months. Imaging at [facility] revealed evidence of obstructive uropathy and diffuse adenopathy above and below the diaphragm.. On examination he appeared to have right supraclavicular nodes are palpable, at least about 2 cm. he underwent a right supraclavicular lymph node biopsy on 12/16/18, and was then discharged. 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 This was sent to the [facility] for a consultation. 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 ALK testing was negative. Be an T-cell rearrangement studies were ordered. Surprisingly B cell gene rearrangement, IGH an IgG daily for clonal, while T-cell rearrangements were negative. 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 the patient had a bone marrow aspiration biopsy on 01/15/19. A PET scan was ordered but the patient did not keep that appointment. he was also referred to the [facility], part the appointment was delayed due to to have not having insurance. This was scheduled for 02/08/19 His bone marrow showed significant involvement with lymphoma. Gene rearrangement studies did not show B or T cell markers!! The pt however got admitted to [facility] with progressive symptoms. He was thus started on EPOCH inpt on 02/07/19. His stay was complicated by extravasation of chemo causing soft tissue damage in the rt upper chest wall.Fortunately there was no deep tissue necrosis, and this was treated supportively. He continued chemo with a LUE PICC line. He was readmitted after C 2 with thrush, mucositis and febrile neutropenia after C 2, and improved with supportive care. PET scan post C 2 was delayed as the pt did not get it done. He had that on 04/10/19. This showed resolution of FDG activity above the diaphragm, and in the upper abdomen. However, adenopathy along the rt iliac chain showed increase, wth persistent marked uptake. He had a repeat biopsy revealing NHL. the patient was seen at the [facility] by Dr. Pierson and case reviewed. It was recommended that the patient did have a significant response, and should continue with the chemotherapy, with Cytoxan/Adriamycin/Brentuximab/Prednisone combination targeting CD30. he started the same on 06/22/19 and is s/p 2 cycles. He was admitted after cycle 1 for febrile neutropenia. He also developed breakdown of soft tissue along the chest wall and had his port removed as well as debridement. G-CSF was added with cycle 2. the patient had also been referred to bone marrow transplant at the [facility] and was ultimately seen there on 07/27/19. They informed us that his biopsy from the right iliac lymph node had been obtained and reviewed at the [facility]. the report was formalized after his consultation there in 06/24, and had indicated that this was actually a B-cell lymphoma! His slides from his other biopsies were requested for comparison at the [facility]. This was on hold as the pt delayed coming in for signing the release form, but was ultimately done. His prior slides were subsequently received and reviewed at the [facility]. Case was discussed with the pathologist. 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 Treatment had to be placed on hold because of active wound in the right upper chest wall with slow healing. Repeat CT scan from 10/25 showed essentially stable findings with persistent terence mass in the right iliac area. the patient was continued on observation, with repeat CT scans in late 12/23 again showing stable findings. the patient was referred back to [facility] and seen there in 02/22. It was recommended that he resume chemotherapy with the same regimen. Chest wall lesion continued to improve and healing was finally felt to be satisfactory by 03/25. He resumed CHP-Adcetris on 04/12/20 and is status post 2 cycles (total 4) when seen in the office after cycle 2 he was complaining of significant right- sided abdominal pain. He was admitted to the hospital with CT scans revealing likely progression in the right pelvic mass with some increase in adjacent adenopathy. He was treated symptomatically for pain control. He was seen by urology during that visit, and not felt to be a candidate for stenting for his right hydronephrosis, as this was chronic and not felt to be the source of his pain. Renal function was also normal. Post discharge patient had a PET scan on 05/26/20. This confirmed marked uptake with increase in size of the right pelvic mass and adjacent lymph nodes. There was also increased uptake noted in the left base of tongue, and right submandibular node. Mediastinal nodes, however, showed improvement compared to before The patient was referred for radiation to the large right pelvic mass which was the main site of progression. He completed the same at [facility] with dramatic improvement. Case was again reviewed with [facility], and it was commented that he start salvage chemotherapy with ICE. He was admitted for cycle 1 of ICE on 07/17/20. He had no cough medication during hospitalization and was discharged after completion of chemotherapy. He received Neulasta on 07/21/20. He did have acute admission since his first treatment with ICE last month for nausea, and burning in the upper abdomen, worse with certain foods. He developed overt nausea and vomiting yesterday and went to [facility]. He seemed to improve initially with supportive treatment but then developed recurrent vomiting and was transferred here. He denied any fevers, or change in bowel habits. He was treated with supportive care and improved. He now Presents today 08/17/20 for cycle 2 of ICE. He is feeling well, no new or acute concerns. Review of Systems All systems: negative Constitutional: Reports as per HPI Past Medical History Past Medical History: Cancer, COPD, GERD/Reflux, GI Bleed Additional Past Medical History / Comment(s): Non hodgkins lymphoma/R hydronephrosis/pelvic mass recently finished 20 radiation treatments/receiving chemotherapy, R chest wound nearly healed (chemo extravasation), bronchitis, past stomach ulcer, upper and lower GI bleeds, diverticular disease, constipation. History of Any Multi-Drug Resistant Organisms: MRSA Date of last positivie culture/infection: 06/03/19 MDRO Source:: chest wall Past Surgical History: No Surgical Hx Reported Additional Past Surgical History / Comment(s): R supraclavicular lymph node bx, bone marrow aspiration/bx, R iliac lymph node bx, R chest port/removed then had wound debridement/wound vac, L chest wall port, colonoscopy. Past Anesthesia/Blood Transfusion Reactions: No Reported Reaction Additional Past Anesthesia/Blood Transfusion Reaction / Comment(s): Pt has received blood in past without reaction. Past Psychological History: ADD/ADHD, Anxiety, Bipolar, Depression Additional Psychological History / Comment(s): Pt resides with his father. He states he feels he could benefit from some home care. Has difficulty managing meds at times/performing ADLS at times. No longer drives, he gets rides thru his insurance company. States depression has increased some but no thoughts or plans of suicide. Smoking Status: Current every day smoker Past Alcohol Use History: None Reported Additional Past Alcohol Use History / Comment(s): STARTED SMOKING AT AGE 14 HAS QUIT ON AND OFF CURRENTLY SMOKING 1/2PPD Past Drug Use History: None Reported Additional Drug Use History / Comment(s): Pt uses marijuana lately as a vapor for nausea - Past Family History Father Family Medical History: Coronary Artery Disease (CAD) Additional Family Medical History / Comment(s): Father has a cardiac stent. Mother Family Medical History: No Reported History Additional Family Medical History / Comment(s): Mother from dementia. Medications and Allergies Home Medications Medication Instructions Recorded Confirmed Type Ondansetron [Zofran] 4 mg PO Q4H PRN 05/15/20 08/17/20 History Sertraline [Zoloft] 200 mg PO DAILY 05/15/20 08/17/20 History HYDROcodone/APAP 10-325MG [[place] 1 tab PO Q4H PRN 07/17/20 08/17/20 History 10-325] Morphine Sulfate ER [Ms Contin] 15 mg PO BID 07/17/20 08/17/20 History QUEtiapine XR [SEROquel XR] 150 mg PO DAILY 07/17/20 08/17/20 History busPIRone HCL [Buspar] 30 mg PO BID 07/25/20 08/17/20 History Atomoxetine HCl [Strattera] 80 mg PO QAM 08/17/20 08/17/20 History Pantoprazole Sodium [Protonix] 40 mg PO DAILY 08/17/20 08/17/20 History QUEtiapine FUMARATE 100 mg PO HS 08/17/20 08/17/20 History Sucralfate [Carafate] 1 gm PO BID 08/17/20 08/17/20 History Allergies Allergy/AdvReac Type Severity Reaction Status Date / Time adhesive tape Allergy RED SKIN Verified 08/17/20 10:17 AND BLISTERS latex Allergy Rash/Hives Verified 08/17/20 10:17 ragweed pollen Allergy Wheezing Verified 08/17/20 10:17 Physical Exam Vitals: Vital Signs Temp Pulse Resp BP Pulse Ox 08/17/20 09:30 97.7 F 94 16 137/66 95 Intake and Output 08/16/20 08/17/20 08/17/20 22:59 06:59 14:59 Other: Weight 117.934 kg - Constitutional General appearance: no acute distress - EENT Eyes: EOMI, PERRLA ENT: hearing grossly normal, normal oropharynx - Neck Neck: no lymphadenopathy Thyroid: bilateral: normal size - Respiratory Respiratory: bilateral: CTA - Cardiovascular Rhythm: regular Heart sounds: normal: S1, S2 - Gastrointestinal General gastrointestinal: normal bowel sounds, soft - Integumentary Right chest wall wound, now healed with chronic scarring. 1.5 cm ulcerated scabbed area in the inferior aspect, stable Mild erythema with skin exfoliation in both groin areas, postradiation, improved - Neurologic Neurologic: CNII-XII intact - Musculoskeletal Musculoskeletal: generalized weakness, strength equal bilaterally - Psychiatric Psychiatric: A&O x's 3, appropriate affect Results CBC & Chem 7: 08/17/20 12:15 08/17/20 12:15 Thrombosis Risk Factor Assmnt - DVT/VTE Prophylaxis DVT/VTE Prophylaxis: Pharmacologic Prophylaxis ordered - Choose All That Apply Any of the Below Risk Factors Present?: Yes Each Factor Represents 1 point: Obesity (BMI >25) Other Risk Factors: Yes Each Risk Factor Represents 2 Points: Malignancy Other congenital or acquired thrombophilia - If yes, enter type in comment: No Thrombosis Risk Factor Assessment Total Risk Factor Score: 3 Thrombosis Risk Factor Assessment Level: Moderate Risk Assessment and Plan (1) Non-Hodgkin's lymphoma in adult Narrative/Plan: Details of personal history in HPI Today starting cycle two of ICE RBC urine check prior to each Ifos Daily CBC with Diff, CMP, LDH, Uric acid Platelets 200K - Lovenox VTE prophylaxis PPI Office on Friday for Growth Factor Current Visit: No Status: Chronic Priority: Medium Code(s): C85.90 - NON- HODGKIN LYMPHOMA, UNSPECIFIED, UNSPECIFIED SITE SNOMED Code(s): 644195514 Plan: Physician Attest: I have completed the full history and physical and developed the complete impression and plan, agree with above dictation, dictated as a scribe.
[2020-08-17 15:03] LABS: Appearance,Urine Clear (Clear); Bilirubin,Urine Negative (Negative); Blood,Urine Negative (Negative); Color,Urine Yellow; Glucose,Urine (UA) Negative (Negative); Ketones,Urine Negative (Negative); Leukocyte Esterase,Urine Negative (Negative); Nitrite,Urine Negative (Negative); PH, Urine 6.5 (5.0-8.0); Protein,Urine Negative (Negative); Specific Gravity,Urine 1.021 (1.001-1.035); Urobilinogen,Urine <2.0 mg/dL (<2.0)
[2020-08-17] MEDS: FAMOTIDINE 20 MG/2 ML VIAL IV SCH (16:12)
[2020-08-17] MEDS: DEXAMETHASONE SOD PHOSPHATE 10 MG/ML 1 ML VIAL IV SCH (16:13)
[2020-08-17] MEDS: ONDANSETRON 16 MG in SODIUM CHLORIDE 0.9% 50 ML IVPB SCH (16:13)
[2020-08-17] MEDS: QUEtiapine 25 MG TAB PO SCH (16:38)
[2020-08-17] MEDS: SODIUM CHLORIDE 0.9% IV SCH (16:42)
[2020-08-17] MEDS: ETOPOSIDE IV SCH (16:42)
[2020-08-17] MEDS: QUEtiapine 100 MG TAB PO SCH (21:19)
[2020-08-17] MEDS: MORPHINE SULFATE ER 15 MG TABLET PO SCH (21:19)
[2020-08-17] MEDS: SENNOSIDES-DOCUSATE SODIUM 1 EACH TAB PO SCH (21:19)
[2020-08-17] MEDS: SUCRALFATE 1 GM TAB PO SCH (21:19)
[2020-08-17] MEDS: busPIRone HCl 10 MG TAB PO SCH (21:19)
--- NOTE | 2020-08-18 00:48 | CONS ---
CONSULTATION A 55-year-old white male seen on consult for worsening shortness of breath and recent obstructive uropathy due to worsening lymphoma. He is in the hospital for 3 day chemotherapy, characteristic of PTCL, bone marrow aspiration biopsy. PET scan ordered. He missed that appointment. Complaining of his right wound in his right chest wall which has a little bit of drainage from it. He keeps picking at it. REVIEW OF SYSTEMS: Fourteen-point review of systems negative except for mentioned in HPI. PAST MEDICAL HISTORY: Beta cell lymphoma, COPD, GERD, reflux, GI bleed, non-Hodgkin's lymphoma, on chemotherapy, history of ADHD, anxiety, bipolar depression. SOCIAL HISTORY: Current everyday smoker. No alcohol. No drugs. FAMILY HISTORY: Father with coronary artery disease. Mother has dementia. MEDICATIONS: See list. PHYSICAL EXAMINATION: Temperature 97.7, pulse 94, respiratory rate 16 to 18, blood pressure 130s over 60s. CARDIOVASCULAR: S1, S2. LUNGS: Clear. GI: Soft. HEMATOLOGY: Negative Homans. PSYCH: Fair mood and affect. NEUROLOGIC: Cranial nerves are intact. LABS: Labs were reviewed. ASSESSMENT: Transformation of beta cell lymphoma. Lovenox for DVT prophylaxis. Cycle 2 of ICE. Prognosis guarded. Continue home medicines from home. Patient is stable. MMODL / IJN: [id number] /
[2020-08-18 06:20] LABS: Anisocytosis Slight; Basophils % (A) 0 %; Eosinophils % (A) 0 %; HCT 35.4 % (39.0-53.0); HGB 11.8 gm/dL (13.0-17.5); Lymphocytes # (A) 0.2 k/uL (1.0-4.8); Lymphocytes % (A) 3 %; MCH 33.5 pg (25.0-35.0); MCHC 33.3 g/dL (31.0-37.0); MCV 100.7 fL (80.0-100.0); Macrocytosis Slight; Mean Platelet Volume 6.5; Monocytes # (A) 0.2 k/uL (0-1.0); Monocytes % (A) 4 %; Neutrophils # (A) 5.4 k/uL (1.3-7.7); Neutrophils % (A) 93 %; Platelet Count 181 k/uL (150-450); RBC 3.51 m/uL (4.30-5.90); RDW 16.1 % (11.5-15.5); WBC 5.8 k/uL (3.8-10.6)
[2020-08-18] MEDS: SODIUM CHLORIDE 0.9% 1,000 ML IV SCH ×4 (06:33→19:40)
[2020-08-18 07:36] LABS: Appearance,Urine Clear (Clear); Bilirubin,Urine Negative (Negative); Blood,Urine Negative (Negative); Color,Urine Light Yellow; Glucose,Urine (UA) Negative (Negative); Ketones,Urine Negative (Negative); Leukocyte Esterase,Urine Negative (Negative); Nitrite,Urine Negative (Negative); Protein,Urine Negative (Negative); Specific Gravity,Urine 1.017 (1.001-1.035); Urobilinogen,Urine <2.0 mg/dL (<2.0)
[2020-08-18 09:41] LABS: African American GFR (CKD) 97.1 (60.0-200.0); Albumin 4.1 g/dL (3.80-4.90); Albumin/Globulin Ratio 2.41 (1.60-3.17); Anion Gap 8.2 mmol/L (4.00-12.00); Calcium 8.8 mg/dL (8.7-10.3); Carbon Dioxide 20.8 mmol/L (21.6-31.8); Globulin 1.7 g/dL (1.6-3.3); Magnesium 1.8 mg/dL (1.5-2.4); Non-African American GFR(CKD) 83.8 (60.0-200.0); Phosphorus 3.2 mg/dL (2.4-5.1); Potassium 4.4 mmol/L (3.5-5.5); Total Bilirubin 0.3 mg/dL (0.2-1.2); Total Protein 5.8 g/dL (6.2-8.2); Uric Acid 6.1 mg/dL (3.7-8.7)
[2020-08-18] MEDS: ENOXAPARIN 40 MG/0.4 ML SYRINGE SQ SCH (09:55)
[2020-08-18] MEDS: PANTOPRAZOLE 40 MG TABLET PO SCH (09:55)
[2020-08-18] MEDS: MORPHINE SULFATE ER 15 MG TABLET PO SCH ×2 (09:55→20:24)
[2020-08-18] MEDS: SUCRALFATE 1 GM TAB PO SCH ×2 (09:56→20:30)
[2020-08-18] MEDS: busPIRone HCl 10 MG TAB PO SCH ×2 (09:56→20:25)
[2020-08-18] MEDS: SENNOSIDES-DOCUSATE SODIUM 1 EACH TAB PO SCH ×2 (09:56→20:25)
[2020-08-18] MEDS: SERTRALINE 100 MG TAB PO SCH (09:56)
[2020-08-18] MEDS: QUEtiapine 25 MG TAB PO SCH ×2 (09:57→17:07)
[2020-08-18 14:05] VITALS: BMI 35.2
[2020-08-18] MEDS: FAMOTIDINE 20 MG/2 ML VIAL IV SCH (14:09)
[2020-08-18] MEDS: DEXAMETHASONE SOD PHOSPHATE 10 MG/ML 1 ML VIAL IV SCH (14:09)
[2020-08-18] MEDS: NON FORMULARY DRUG (Atomoxetine Hcl [Strattera] 80 MG Capsule) PO SCH (14:09)
[2020-08-18] MEDS: ONDANSETRON 16 MG in SODIUM CHLORIDE 0.9% 50 ML IVPB SCH (14:09)
[2020-08-18] MEDS: HYDROcodone/APAP 10-325MG 1 EACH TAB PO PRN (14:20)
--- NOTE | 2020-08-18 14:40 | P.PN ---
Subjective Progress Note Date: 08/18/20 Principal diagnosis: Admit for Continuous chemotherapy infusion for non-Hodgkin's lymphoma In follow-up today patient has new moderate or severe complaints on a 14 point review of systems. He denies fevers, oral irritation, nausea, difficulty breathing, abdominal pain or cramping, acute changes in bowel or bladder habits. He is experiencing some restless leg symptoms in the evening, he has chronic pain that is stable. Objective - Vital Signs Vital signs: Vital Signs Temp 98 F 08/18/20 12:00 Pulse 93 08/18/20 12:00 Resp 16 08/18/20 12:00 BP 129/77 08/18/20 12:00 Pulse Ox 97 08/18/20 12:00 Intake & Output 08/17/20 08/18/20 08/18/20 18:59 06:59 18:59 Intake Total 361 1000 680 Balance 361 1000 680 Weight 117.934 kg 117.934 kg Intake: Intake, IV Titration 125 1000 Amount Sodium Chloride 0.9% 1, 125 1000 000 ml @ 125 mls/hr IV . Q8H [facility] Rx#:[id number] Oral 236 680 Other: Voiding Method Toilet Toilet # Voids 1 1 - Constitutional General appearance: Present: cooperative, no acute distress, obese - EENT EENT Comment(s): Dry mucous membranes Eyes: Present: anicteric sclerae, EOMI ENT: Present: hearing grossly normal - Respiratory Respiratory: bilateral: CTA - Cardiovascular Rhythm: regular Heart sounds: normal: S1, S2 Abnormal Heart Sounds: Absent: systolic murmur, diastolic murmur, rub, S3 Gallop, S4 Gallop, click, other - Peripheral edema foot Peripheral Edema: bilateral: None - Gastrointestinal General gastrointestinal: Present: normal bowel sounds, soft. Absent: absent bowel sounds, decreased bowel sounds, distended, hepatomegaly, hyperactive bowel sounds, organomegaly, rigid, scaphoid, splenomegaly, tenderness, umbilical hernia, ventral hernia - Integumentary Integumentary: Present: pale - Neurologic Neurologic: Present: CNII-XII intact - Musculoskeletal Musculoskeletal: Present: strength equal bilaterally - Allied health notes Allied health notes reviewed: nursing - Labs CBC & Chem 7: 08/18/20 05:26 08/18/20 05:26 Labs: Abnormal Lab Results - Last 24 Hours (Table) 08/18/20 08/18/20 Range/Units 05:26 05:26 RBC 3.51 L (4.30-5.90) m/uL Hgb 11.8 L (13.0-17.5) gm/dL Hct 35.4 L (39.0-53.0) % MCV 100.7 H (80.0-100.0) fL RDW 16.1 H (11.5-15.5) % Lymphocytes # 0.2 L (1.0-4.8) k/uL Chloride 112 H (96-109) mmol/L Carbon Dioxide 20.8 L (21.6-31.8) mmol/L Glucose 113 H (70-110) mg/dL Total Protein 5.8 L (6.2-8.2) g/dL Assessment and Plan (1) Non-Hodgkin's lymphoma in adult Narrative/Plan: Inpatient for continuous IV infusion chemotherapy, ICE therapy for non-Hodgkin's lymphoma. Labs daily UA for hematuria daily Supportive medications ordered GI and DVT prophylaxis Encouraged ambulation Odell fluid intake Routine vital signs Current Visit: Yes Status: Chronic Priority: Medium Code(s): C85.90 - NON- HODGKIN LYMPHOMA, UNSPECIFIED, UNSPECIFIED SITE SNOMED Code(s): 636548261 Plan: Doctor attests: I performed a history and physical examination of this patient, developed impression and plan of care. Discussed with dictator. I agree with dictators note, documented as a scribe.
[2020-08-18] MEDS ORDERED: CARBOPLATIN IV ONE (15:00)
[2020-08-18] MEDS ORDERED: MESNA IV ONE (15:00)
[2020-08-18] MEDS ORDERED: SODIUM CHLORIDE 0.9% IV ONE ×3 (15:00)
[2020-08-18] MEDS ORDERED: IFOSFAMIDE IV ONE (15:00)
[2020-08-18] MEDS: SODIUM CHLORIDE 0.9% IV SCH (15:26)
[2020-08-18] MEDS: ETOPOSIDE IV SCH (15:26)
[2020-08-18] MEDS: SALT AND SODA MOUTHWASH 1,000 ML PO SCH ×2 (18:09→20:24)
[2020-08-18] MEDS: QUEtiapine 100 MG TAB PO SCH (20:30)
[2020-08-19] MEDS: SALT AND SODA MOUTHWASH 1,000 ML PO SCH ×4 (01:08→16:59)
[2020-08-19 04:50] LABS: Appearance,Urine Clear (Clear); Bilirubin,Urine Negative (Negative); Blood,Urine Negative (Negative); Color,Urine Light Yellow; Glucose,Urine (UA) Trace (Negative); Ketones,Urine 4+ (Negative); Leukocyte Esterase,Urine Negative (Negative); Nitrite,Urine Negative (Negative); PH, Urine 5.5 (5.0-8.0); Protein,Urine Negative (Negative); Specific Gravity,Urine 1.017 (1.001-1.035); Urobilinogen,Urine <2.0 mg/dL (<2.0)
[2020-08-19 06:20] LABS: Anisocytosis Slight; Basophils % (A) 0 %; Eosinophils % (A) 0 %; HCT 32.7 % (39.0-53.0); HGB 10.9 gm/dL (13.0-17.5); Lymphocytes # (A) 0.2 k/uL (1.0-4.8); Lymphocytes % (A) 4 %; MCH 33.7 pg (25.0-35.0); MCHC 33.2 g/dL (31.0-37.0); MCV 101.5 fL (80.0-100.0); Macrocytosis Slight; Mean Platelet Volume 6.8; Monocytes # (A) 0.4 k/uL (0-1.0); Monocytes % (A) 8 %; Neutrophils % (A) 87 %; Platelet Count 155 k/uL (150-450); RBC 3.22 m/uL (4.30-5.90); RDW 16.1 % (11.5-15.5); WBC 4.6 k/uL (3.8-10.6)
[2020-08-19] MEDS: MORPHINE SULFATE ER 15 MG TABLET PO SCH (08:06)
[2020-08-19] MEDS: PANTOPRAZOLE 40 MG TABLET PO SCH (08:07)
[2020-08-19] MEDS: ENOXAPARIN 40 MG/0.4 ML SYRINGE SQ SCH (08:07)
[2020-08-19] MEDS: busPIRone HCl 10 MG TAB PO SCH (08:08)
[2020-08-19] MEDS: QUEtiapine 25 MG TAB PO SCH ×2 (08:08→16:59)
[2020-08-19] MEDS: SUCRALFATE 1 GM TAB PO SCH (08:09)
[2020-08-19] MEDS: SERTRALINE 100 MG TAB PO SCH (08:09)
[2020-08-19] MEDS: SENNOSIDES-DOCUSATE SODIUM 1 EACH TAB PO SCH (08:09)
[2020-08-19] MEDS: NON FORMULARY DRUG (Atomoxetine Hcl [Strattera] 80 MG Capsule) PO SCH (08:10)
[2020-08-19 09:00] VITALS: RESP 16
[2020-08-19 10:28] LABS: African American GFR (CKD) 97.1 (60.0-200.0); Albumin 3.9 g/dL (3.80-4.90); Calcium 8.4 mg/dL (8.7-10.3); Globulin 1.3 g/dL (1.6-3.3); Magnesium 1.9 mg/dL (1.5-2.4); Non-African American GFR(CKD) 83.8 (60.0-200.0); Phosphorus 3.3 mg/dL (2.4-5.1); Potassium 4.1 mmol/L (3.5-5.5); Total Bilirubin 0.3 mg/dL (0.3-1.2); Total Protein 5.2 g/dL (6.2-8.2); Uric Acid 5.2 mg/dL (3.7-8.7)
[2020-08-19] MEDS: FAMOTIDINE 20 MG/2 ML VIAL IV SCH (14:29)
[2020-08-19] MEDS: ONDANSETRON 16 MG in SODIUM CHLORIDE 0.9% 50 ML IVPB SCH (14:29)
[2020-08-19] MEDS: DEXAMETHASONE SOD PHOSPHATE 10 MG/ML 1 ML VIAL IV SCH (14:29)
[2020-08-19 14:38] VITALS: BP 151/73; PULSE 95; TEMP 97.6
--- NOTE | 2020-08-19 14:47 | P.DS ---
Providers Date of admission: 08/17/20 09:20 Expected date of discharge: 08/19/20 Attending physician: Dennys Zafar Consults: 08/17/20 15:16 Consult Physician Routine Consulting Provider: Randy Leroy Reason/Comments: medical management Do you want consulting provider notified?: Yes Primary care physician: [facility] Course: Mr. Lamb is a very pleasant 55 yo male with NHL, here for C2 of ICE. Tolerated chemotherapy well. Discharged in stable condition with instructions to come in on Friday for G-CSF. Assessment: Gen.: No acute distress. HEENT: No conjunctival pallor. No scleral icterus. Neck: Neck supple. Lungs: No respiratory distress. Heart: Regular rate. No lower extremity edema. Abdomen: Soft. MSK: Appropriate strength in all 4 extremities. Neuro: Alert and oriented 3. Skin: No jaundice. Psych: Appropriate affect. Patient Condition at Discharge: Fair Plan - Discharge Summary Discharge Rx Participant: Yes New Discharge Prescriptions: New Acyclovir 400 mg PO BID #60 tablet Sulfamethoxazole/Trimethoprim [Bactrim DS 800-160 mg] 1 each PO DIRECTED #12 tablet No Action Sertraline [Zoloft] 200 mg PO DAILY Ondansetron [Zofran] 4 mg PO Q4H PRN PRN Reason: Nausea QUEtiapine XR [SEROquel XR] 150 mg PO DAILY HYDROcodone/APAP 10-325MG [[place] 10-325] 1 tab PO Q4H PRN PRN Reason: Pain Morphine Sulfate ER [Ms Contin] 15 mg PO BID busPIRone HCL [Buspar] 30 mg PO BID Sucralfate [Carafate] 1 gm PO BID QUEtiapine FUMARATE 100 mg PO HS Pantoprazole Sodium [Protonix] 40 mg PO DAILY Atomoxetine HCl [Strattera] 80 mg PO QAM Discharge Medication List Ondansetron [Zofran] 4 mg PO Q4H PRN 05/15/20 [History] Sertraline [Zoloft] 200 mg PO DAILY 05/15/20 [History] HYDROcodone/APAP 10-325MG [[place] 10-325] 1 tab PO Q4H PRN 07/17/20 [History] Morphine Sulfate ER [Ms Contin] 15 mg PO BID 07/17/20 [History] QUEtiapine XR [SEROquel XR] 150 mg PO DAILY 07/17/20 [History] busPIRone HCL [Buspar] 30 mg PO BID 07/25/20 [History] Atomoxetine HCl [Strattera] 80 mg PO QAM 08/17/20 [History] Pantoprazole Sodium [Protonix] 40 mg PO DAILY 08/17/20 [History] QUEtiapine FUMARATE 100 mg PO HS 08/17/20 [History] Sucralfate [Carafate] 1 gm PO BID 08/17/20 [History] Acyclovir 400 mg PO BID #60 tablet 08/19/20 [Rx] Sulfamethoxazole/Trimethoprim [Bactrim DS 800-160 mg] 1 each PO DIRECTED #12 tablet 08/19/20 [Rx] Follow up Appointment(s)/Referral(s): Dennys Zafar MD [STAFF PHYSICIAN] - 08/21/20 1:30 pm (PLEASE MAKE SURE PATIENT UNDERSTANDS THAT THIS APPT IS AT THE [address], 2ND FLOOR) [facility], [NON-STAFF] - 1-2 Days Activity/Diet/Wound Care/Special Instructions: ACTIVITY TOLERATED DIET TOLERATED PRESCRIPTIONS FILLED AT [facility]
[2020-08-19] MEDS: ETOPOSIDE IV SCH (15:00)
[2020-08-19] MEDS: SODIUM CHLORIDE 0.9% IV SCH (15:00)
== END 2020-08-19 17:40 | disposition home or self-care (01) | DRG 847 ==
LOC: 5NMEDONC 09:20
PROVIDERS: ADMIT Internal Medicine Hematology & Oncology; ATTEND Internal Medicine Hematology & Oncology
DX: Z51.11 Encounter for antineoplastic chemotherapy (principal); C85.90 Non-Hodgkin lymphoma, unspecified, unspecified site; F31.30 Bipolar disorder, current episode depressed, mild or moderate severity, unspecified; K21.9 Gastro-esophageal reflux disease without esophagitis; F17.210 Nicotine dependence, cigarettes, uncomplicated; J44.9 Chronic obstructive pulmonary disease, unspecified; N13.9 Obstructive and reflux uropathy, unspecified; G25.81 Restless legs syndrome; G89.29 Other chronic pain; K57.90 Diverticulosis of intestine, part unspecified, without perforation or abscess without bleeding; D70.9 Neutropenia, unspecified; K59.00 Constipation, unspecified; F17.200 Nicotine dependence, unspecified, uncomplicated; F41.9 Anxiety disorder, unspecified; F90.9 Attention-deficit hyperactivity disorder, unspecified type; Z91.040 Latex allergy status; Z91.048 Other nonmedicinal substance allergy status; Z79.899 Other long term (current) drug therapy; Z87.11 Personal history of peptic ulcer disease; Z86.14 Personal history of Methicillin resistant Staphylococcus aureus infection; Z92.3 Personal history of irradiation; Z82.49 Family history of ischemic heart disease and other diseases of the circulatory system; Z81.8 Family history of other mental and behavioral disorders; Z98.890 Other specified postprocedural states; Z91.09 Other allergy status, other than to drugs and biological substances
CPT/HCPCS: 80053; 81003; 83615; 83735; 84100; 84550; 85025

== ENCOUNTER 2020-08-23 05:46 | Observation (INO) | payer OTHER ==
[2020-08-23] MEDS ORDERED: ONDANSETRON 4 MG/2 ML VIAL IVP STA (05:57)
[2020-08-23] MEDS ORDERED: SODIUM CHLORIDE 0.9% 1,000 ML IV STA ×2 (05:57)
--- NOTE | 2020-08-23 05:59 | ED ---
Nausea/Vomiting/Diarrhea HPI - General Stated complaint: Vomiting Time Seen by Provider: 08/23/20 05:50 Source: RN notes reviewed, old records reviewed Mode of arrival: EMS Limitations: no limitations - History of Present Illness Initial comments: This is a 55-year-old male currently going to chemotherapy currently. Patient is no lymphoma known underlying CA, recently chemotherapy and since has been feeling not well. Persistent nausea vomiting weakness myalgias and chills. Patient has no other significant complaints denies fevers. Multiple sick contacts his been out of the hospital recently. No new rashes or diarrhea. No change in medications. MD complaint: nausea, vomiting, abdominal pain -: days(s) Description of Vomiting: food contents Description of Diarrhea: water Associated Abdominal Pain: Yes Location: diffuse Radiation: none Severity: moderate Severity scale (1-10): 4 Quality: aching Consistency: intermittent Improves with: none Worsens with: none Context: sick contacts Associated Symptoms: myalgias, fever/chills, loss of appetite, nausea/vomiting, weakness - Related Data Home Medications Medication Instructions Recorded Confirmed Ondansetron [Zofran] 4 mg PO Q4H PRN 05/15/20 08/23/20 Sertraline [Zoloft] 200 mg PO DAILY 05/15/20 08/23/20 HYDROcodone/APAP 10-325MG [[place] 1 tab PO Q4H PRN 07/17/20 08/23/20 10-325] Morphine Sulfate ER [Ms Contin] 15 mg PO BID 07/17/20 08/23/20 QUEtiapine XR [SEROquel XR] 150 mg PO DAILY 07/17/20 08/23/20 busPIRone HCL [Buspar] 30 mg PO BID 07/25/20 08/23/20 Atomoxetine HCl [Strattera] 80 mg PO QAM 08/17/20 08/23/20 Pantoprazole Sodium [Protonix] 40 mg PO DAILY 08/17/20 08/23/20 QUEtiapine FUMARATE 100 mg PO HS 08/17/20 08/23/20 Sucralfate [Carafate] 1 gm PO BID 08/17/20 08/23/20 Sulfamethoxazole/Trimethoprim 1 tab PO MOWEFR 08/23/20 08/23/20 [Bactrim DS 800-160 mg] Previous Rx's Medication Instructions Recorded Acyclovir 400 mg PO BID #60 tablet 08/19/20 Allergies Allergy/AdvReac Type Severity Reaction Status Date / Time adhesive tape Allergy RED SKIN Verified 08/23/20 08:02 AND BLISTERS latex Allergy Rash/Hives Verified 08/23/20 08:02 ragweed pollen Allergy Wheezing Verified 08/23/20 08:02 Review of Systems ROS Statement: Those systems with pertinent positive or pertinent negative responses have been documented in the HPI. ROS Other: All systems not noted in ROS Statement are negative. Past Medical History Past Medical History: Cancer, COPD, GERD/Reflux, GI Bleed Additional Past Medical History / Comment(s): Non hodgkins lymphoma/R hydronephrosis/pelvic mass recently finished 20 radiation treatments/receiving chemotherapy, R chest wound nearly healed (chemo extravasation), bronchitis, past stomach ulcer, upper and lower GI bleeds, diverticular disease, constipation. History of Any Multi-Drug Resistant Organisms: MRSA Date of last positivie culture/infection: 06/03/19 MDRO Source:: chest wall Past Surgical History: No Surgical Hx Reported Additional Past Surgical History / Comment(s): R supraclavicular lymph node bx, bone marrow aspiration/bx, R iliac lymph node bx, R chest port/removed then had wound debridement/wound vac, L chest wall port, colonoscopy. Past Anesthesia/Blood Transfusion Reactions: No Reported Reaction Additional Past Anesthesia/Blood Transfusion Reaction / Comment(s): Pt has received blood in past without reaction. Past Psychological History: ADD/ADHD, Anxiety, Bipolar, Depression Additional Psychological History / Comment(s): Pt resides with his father. He states he feels he could benefit from some home care. Has difficulty managing meds at times/performing ADLS at times. No longer drives, he gets rides thru his insurance company. States depression has increased some but no thoughts or plans of suicide. Smoking Status: Current every day smoker Past Alcohol Use History: None Reported Additional Past Alcohol Use History / Comment(s): STARTED SMOKING AT AGE 14 HAS QUIT ON AND OFF CURRENTLY SMOKING 1/2PPD Past Drug Use History: None Reported Additional Drug Use History / Comment(s): Pt uses marijuana lately as a vapor for nausea - Past Family History Father Family Medical History: Coronary Artery Disease (CAD) Additional Family Medical History / Comment(s): Father has a cardiac stent. Mother Family Medical History: No Reported History Additional Family Medical History / Comment(s): Mother from dementia. General Exam General appearance: alert, in no apparent distress Head exam: Present: atraumatic, normocephalic, normal inspection Eye exam: Present: normal appearance, PERRL, EOMI. Absent: scleral icterus, conjunctival injection, periorbital swelling ENT exam: Present: normal exam, mucous membranes moist Neck exam: Present: normal inspection. Absent: tenderness, meningismus, lymphadenopathy Respiratory exam: Present: normal lung sounds bilaterally. Absent: respiratory distress, wheezes, rales, rhonchi, stridor Cardiovascular Exam: Present: regular rate, normal rhythm, normal heart sounds. Absent: systolic murmur, diastolic murmur, rubs, gallop, clicks GI/Abdominal exam: Present: soft, normal bowel sounds. Absent: distended, tenderness, guarding, rebound, rigid Extremities exam: Present: normal inspection, full ROM, normal capillary refill. Absent: tenderness, pedal edema, joint swelling, calf tenderness Back exam: Present: normal inspection Neurological exam: Present: alert, oriented X3, CN II-XII intact Psychiatric exam: Present: normal affect, normal mood Skin exam: Present: warm, dry, intact, normal color. Absent: rash Course Vital Signs 08/23/20 08/23/20 05:52 07:56 Temperature 97.8 F Pulse Rate 86 86 Respiratory 19 18 Rate Blood Pressure 148/85 133/58 O2 Sat by Pulse 100 97 Oximetry - Reevaluation(s) Reevaluation #1: 08/24/20 06:21 medical record is reviewed Reevaluation #2: Patient has no improvement in symptoms here in the ER spoke patient regarding findings, questions answered - Consultations Consultation #1: Spoke with agrees to admit this patient Medical Decision Making - Medical Decision Making 55 male going to chemotherapy with significant pain and weakness, persistent nausea and vomiting. Symptomatic patient for symptomatic therapy and treatment - Lab Data Result diagrams: 08/23/20 06:31 08/23/20 06:31 Lab Results 08/23/20 08/23/20 08/23/20 Range/Units 06:31 06:31 06:31 WBC 17.0 H (3.8-10.6) k/uL RBC 3.51 L (4.30-5.90) m/uL Hgb 11.6 L (13.0-17.5) gm/dL Hct 35.1 L (39.0-53.0) % MCV 100.2 H (80.0-100.0) fL MCH 33.1 (25.0-35.0) pg MCHC 33.0 (31.0-37.0) g/dL RDW 15.6 H (11.5-15.5) % Plt Count 163 (150-450) k/uL MPV 6.9 Neutrophils % 98 % Lymphocytes % 1 % Monocytes % 1 % Eosinophils % 0 % Basophils % 0 % Neutrophils # 16.7 H (1.3-7.7) k/uL Lymphocytes # 0.1 L (1.0-4.8) k/uL Monocytes # 0.1 (0-1.0) k/uL Eosinophils # 0.1 (0-0.7) k/uL Basophils # 0.0 (0-0.2) k/uL Macrocytosis Slight PT 9.4 (9.0-12.0) sec INR 0.9 (<1.2) APTT 21.6 L (22.0-30.0) sec Sodium 141 (137-145) mmol/L Potassium 4.1 (3.5-5.1) mmol/L Chloride 111 H (98-107) mmol/L Carbon Dioxide 22 (22-30) mmol/L Anion Gap 8 mmol/L BUN 18 (9-20) mg/dL Creatinine 1.35 H (0.66-1.25) mg/dL Est GFR (CKD-EPI)AfAm 67 (>60 ml/min/1.73 sqM) Est GFR (CKD-EPI)NonAf 58 (>60 ml/min/1.73 sqM) Glucose 138 H (74-99) mg/dL Plasma Lactic Acid Marcos (0.7-2.0) mmol/L Calcium 9.5 (8.4-10.2) mg/dL Phosphorus 2.1 L (2.5-4.5) mg/dL Magnesium 2.0 (1.6-2.3) mg/dL Ferritin 754.4 H (22.0-322.0) ng/mL Total Bilirubin 0.9 (0.2-1.3) mg/dL AST 28 (17-59) U/L ALT 29 (4-49) U/L Alkaline Phosphatase 92 (38-126) U/L Lactate Dehydrogenase 591 (313-618) U/L Creatine Kinase 54 L (55-170) U/L Troponin I (0.000-0.034) ng/mL C-Reactive Protein 10.9 H (<10.0) mg/L Total Protein 7.2 (6.3-8.2) g/dL Albumin 4.7 (3.5-5.0) g/dL Procalcitonin (0.02-0.09) ng/mL 08/23/20 08/23/20 08/23/20 Range/Units 06:31 06:31 06:31 WBC (3.8-10.6) k/uL RBC (4.30-5.90) m/uL Hgb (13.0-17.5) gm/dL Hct (39.0-53.0) % MCV (80.0-100.0) fL MCH (25.0-35.0) pg MCHC (31.0-37.0) g/dL RDW (11.5-15.5) % Plt Count (150-450) k/uL MPV Neutrophils % % Lymphocytes % % Monocytes % % Eosinophils % % Basophils % % Neutrophils # (1.3-7.7) k/uL Lymphocytes # (1.0-4.8) k/uL Monocytes # (0-1.0) k/uL Eosinophils # (0-0.7) k/uL Basophils # (0-0.2) k/uL Macrocytosis PT (9.0-12.0) sec INR (<1.2) APTT (22.0-30.0) sec Sodium (137-145) mmol/L Potassium (3.5-5.1) mmol/L Chloride (98-107) mmol/L Carbon Dioxide (22-30) mmol/L Anion Gap mmol/L BUN (9-20) mg/dL Creatinine (0.66-1.25) mg/dL Est GFR (CKD-EPI)AfAm (>60 ml/min/1.73 sqM) Est GFR (CKD-EPI)NonAf (>60 ml/min/1.73 sqM) Glucose (74-99) mg/dL Plasma Lactic Acid Marcos 2.3 H* (0.7-2.0) mmol/L Calcium (8.4-10.2) mg/dL Phosphorus (2.5-4.5) mg/dL Magnesium (1.6-2.3) mg/dL Ferritin (22.0-322.0) ng/mL Total Bilirubin (0.2-1.3) mg/dL AST (17-59) U/L ALT (4-49) U/L Alkaline Phosphatase (38-126) U/L Lactate Dehydrogenase (313-618) U/L Creatine Kinase (55-170) U/L Troponin I <0.012 (0.000-0.034) ng/mL C-Reactive Protein (<10.0) mg/L Total Protein (6.3-8.2) g/dL Albumin (3.5-5.0) g/dL Procalcitonin 0.29 H (0.02-0.09) ng/mL - EKG Data -: EKG Interpreted by Me (EKG shows sinus a rate of 89 WA 160 QRS 82 QTC 481) Disposition Clinical Impression: Lymphoma, Vomiting, Intractable cyclical vomiting with nausea, Weakness Disposition: ADMITTED IP TO THIS HOSP Condition: Fair Is patient prescribed a controlled substance at d/c from ED?: No
[2020-08-23] MEDS ORDERED: MORPHINE SULFATE 4 MG/ML SYRINGE IVP PRN (06:42)
[2020-08-23] MEDS ORDERED: METOCLOPRAMIDE 5 MG/ML 2 ML VIAL IVP PRN (06:42)
[2020-08-23] MEDS ORDERED: diphenhydrAMINE 50 MG/ML 1 ML VIAL IVP PRN (06:42)
[2020-08-23] MEDS ORDERED: METOCLOPRAMIDE 5 MG/ML 2 ML VIAL IVP STA (06:42)
[2020-08-23] MEDS ORDERED: LORazepam 2 MG/ML INJ IV STA (06:42)
[2020-08-23] MEDS ORDERED: diphenhydrAMINE 50 MG/ML 1 ML VIAL IVP STA (06:42)
[2020-08-23] MEDS ORDERED: MORPHINE SULFATE 4 MG/ML SYRINGE IVP STA (06:42)
[2020-08-23] MEDS ORDERED: LORazepam 2 MG/ML INJ IV PRN (06:42)
[2020-08-23] MEDS ORDERED: DEXTROSE 5%-0.45% NACL 1,000 ML IV ONE (06:44)
[2020-08-23 06:46] LABS: Basophils % (A) 0 %; Eosinophils # (A) 0.1 k/uL (0-0.7); Eosinophils % (A) 0 %; HCT 35.1 % (39.0-53.0); HGB 11.6 gm/dL (13.0-17.5); Lymphocytes # (A) 0.1 k/uL (1.0-4.8); Lymphocytes % (A) 1 %; MCH 33.1 pg (25.0-35.0); MCV 100.2 fL (80.0-100.0); Macrocytosis Slight; Mean Platelet Volume 6.9; Monocytes # (A) 0.1 k/uL (0-1.0); Monocytes % (A) 1 %; Neutrophils # (A) 16.7 k/uL (1.3-7.7); Neutrophils % (A) 98 %; Platelet Count 163 k/uL (150-450); RBC 3.51 m/uL (4.30-5.90); RDW 15.6 % (11.5-15.5)
[2020-08-23 06:57] LABS: Albumin 4.7 g/dL (3.5-5.0); Calcium 9.5 mg/dL (8.4-10.2); Phosphorus 2.1 mg/dL (2.5-4.5); Potassium 4.1 mmol/L (3.5-5.1); Total Bilirubin 0.9 mg/dL (0.2-1.3); Total Protein 7.2 g/dL (6.3-8.2)
[2020-08-23 07:05] LABS: INR 0.9 (<1.2); Prothrombin Time 9.4 sec (9.0-12.0)
[2020-08-23 07:10] LABS: Partial Thromboplastin Time 21.6 sec (22.0-30.0)
[2020-08-23 07:14] LABS: C Reactive Protein 10.9 mg/L (<10.0)
[2020-08-23] MEDS ORDERED: NYSTATIN 100,000UNIT/GM CREAM 30 GM TUBE TOPICAL PRN (09:49)
[2020-08-23 11:22] LABS: Ferritin 754.4 ng/mL (22.0-322.0)
--- NOTE | 2020-08-23 16:49 | HP ---
HISTORY AND PHYSICAL A 55-year-old white male with nausea, vomiting, abdominal pain, moderate severity, quality is aching, intermittent with sick contacts. He has myalgias, fevers, chills, loss of appetite, nausea, vomiting, weakness. He had chemotherapy 5 days in the hospital last week. He is severely weak at this time. Home medicines are Zofran 4 mg q.4 hours, Zoloft 200 mg daily, [place] 10/325 q.4 hours p.r.n., MS Contin 15 b.i.d., Seroquel XR 150 daily, BuSpar 30 b.i.d., Strattera 80 mg daily, Protonix 40 mg daily, 100 mg and Carafate 1 g b.i.d. ALLERGIES: ADHESIVE TAPE, LATEX, RAGWEED, POLLEN. 14 POINT REVIEW OF SYSTEMS: Negative except for as mentioned in HPI. PAST MEDICAL HISTORY: Cancer, COPD, GERD, GI bleed, non-Hodgkin's lymphoma as mentioned 20 radiation treatments, chemotherapy in the hospital last week. History of MRSA, ADHD, anxiety, bipolar. FAMILY HISTORY: Father coronary disease. Mother, dementia. He is alert, looks disheveled, weak, fatigued. BMI is over 40. HEENT: Normocephalic, atraumatic. INTEGUMENT: Right chest wound in the upper chest. CARDIAC: Regular rate, rhythm. GI: Soft, normal bowel sounds. EXTREMITIES: Normal inspection. PSYCH: Cranial nerves are intact, fair mood and pen. EKG shows sinus rhythm. ASSESSMENT: Basil cell lymphoma, progressive vomiting, intractable cyclic vomiting with nausea, weakness. Replace electrolytes. Consult Oncology. Prognosis guarded. Please see further orders. Midline has been placed. MMODL / IJN: [id number] /
[2020-08-24 10:22] LABS: Basophils % (A) 0 %; Eosinophils # (A) 0.1 k/uL (0-0.7); Eosinophils % (A) 1 %; HCT 36.2 % (39.0-53.0); Lymphocytes # (A) 0.2 k/uL (1.0-4.8); Lymphocytes % (A) 4 %; MCH 33.7 pg (25.0-35.0); MCHC 33.1 g/dL (31.0-37.0); Macrocytosis Slight; Mean Platelet Volume 6.8; Monocytes # (A) 0.1 k/uL (0-1.0); Monocytes % (A) 1 %; Neutrophils # (A) 4.8 k/uL (1.3-7.7); Neutrophils % (A) 93 %; Platelet Count 110 k/uL (150-450); RBC 3.55 m/uL (4.30-5.90); RDW 15.6 % (11.5-15.5); WBC 5.2 k/uL (3.8-10.6)
--- NOTE | 2020-08-24 10:30 | XR ---
EXAMINATION TYPE: XR chest 2V DATE OF EXAM: 08/24/2020 COMPARISON: NONE TECHNIQUE: PA and lateral views submitted. HISTORY: Vomiting and shortness of breath FINDINGS: The lungs are clear and there is no pneumothorax, pleural effusion, or focal pneumonia. Mediport ca theter noted. No overt failure. Heart size normal. Mild hyperinflation correlate for COPD or asthma. Hypertrophic and degenerative change of the spine IMPRESSION: 1. No acute process.
[2020-08-24 10:31] LABS: Albumin 4.4 g/dL (3.5-5.0); Calcium 9.2 mg/dL (8.4-10.2); Potassium 4.1 mmol/L (3.5-5.1); Total Bilirubin 0.5 mg/dL (0.2-1.3); Total Protein 6.9 g/dL (6.3-8.2)
[2020-08-24] MEDS: NYSTATIN 100,000 UNIT/ML SUSP 500,000 UNIT/5 ML CUP PO SCH ×3 (14:25→21:16)
[2020-08-24 15:38] LABS: Appearance,Urine Clear (Clear); Bilirubin,Urine Negative (Negative); Blood,Urine Negative (Negative); Color,Urine Yellow; Glucose,Urine (UA) Negative (Negative); Ketones,Urine Negative (Negative); Leukocyte Esterase,Urine Negative (Negative); Nitrite,Urine Negative (Negative); PH, Urine 5.5 (5.0-8.0); Protein,Urine Trace (Negative); Specific Gravity,Urine 1.017 (1.001-1.035); Urobilinogen,Urine <2.0 mg/dL (<2.0)
[2020-08-24] MEDS ORDERED: HYDROcodone/APAP 10-325MG 1 EACH TAB PO PRN (16:54)
--- NOTE | 2020-08-24 17:25 | PN ---
PROGRESS NOTE This patient is a 55-year-old white male who appears to have some diarrhea, although he drank 4 Pepsi's today and was given orange juice. Due to diarrhea, we are going to keep him overnight, check electrolytes in the morning, restart his home medicine and add Questran for diarrhea. Vital signs appear to be stable. He is sitting up in bed. He is very anxious, nervous, but he has been off his psych medications. CARDIOVASCULAR: S1, S2. LUNGS: Clear. GI: Soft, distended. Obesity. HEMATOLOGY: Negative Homans. ASSESSMENT: 1. Beta cell lymphoma, improving. 2. Acute chemotherapy drug reaction with nausea, vomiting, diarrhea and dehydration, improving. Continue to advance diet. Possible discharge home if stool cultures are negative. Questran is given for diarrhea. Restart home medications. MMODL / IJN: [id number] /
[2020-08-24] MEDS: SERTRALINE 100 MG TAB PO SCH (17:36)
[2020-08-24] MEDS: QUEtiapine 25 MG TAB PO SCH (17:36)
[2020-08-24] MEDS: CHOLESTYRAMINE (WITH SUGAR) 4 GM PACKET PO SCH (17:36)
[2020-08-24] MEDS ORDERED: QUEtiapine 100 MG TAB PO SCH (21:00)
[2020-08-24] MEDS: MORPHINE SULFATE ER 15 MG TABLET PO SCH (21:14)
[2020-08-24] MEDS: ACYCLOVIR 200 MG CAP PO SCH (21:15)
[2020-08-24] MEDS: busPIRone HCl 10 MG TAB PO SCH (21:16)
[2020-08-24] MEDS: SUCRALFATE 1 GM TAB PO SCH (21:16)
[2020-08-25 06:50] LABS: Basophils % (A) 1 %; Eosinophils % (A) 3 %; HCT 34.9 % (39.0-53.0); HGB 11.3 gm/dL (13.0-17.5); Lymphocytes # (A) 0.1 k/uL (1.0-4.8); Lymphocytes % (A) 8 %; MCH 32.4 pg (25.0-35.0); MCHC 32.3 g/dL (31.0-37.0); MCV 100.1 fL (80.0-100.0); Macrocytosis Slight; Mean Platelet Volume 6.9; Monocytes % (A) 2 %; Neutrophils # (A) 1.4 k/uL (1.3-7.7); Neutrophils % (A) 84 %; RBC 3.48 m/uL (4.30-5.90); WBC 1.7 k/uL (3.8-10.6)
[2020-08-25 07:29] LABS: Platelet Count 80 k/uL (150-450)
[2020-08-25] MEDS: CHOLESTYRAMINE (WITH SUGAR) 4 GM PACKET PO SCH ×3 (08:05→15:01)
[2020-08-25] MEDS: NYSTATIN 100,000 UNIT/ML SUSP 500,000 UNIT/5 ML CUP PO SCH ×2 (08:05→14:58)
[2020-08-25] MEDS: busPIRone HCl 10 MG TAB PO SCH (08:05)
[2020-08-25] MEDS: ACYCLOVIR 200 MG CAP PO SCH (08:05)
[2020-08-25] MEDS: QUEtiapine 25 MG TAB PO SCH (08:05)
[2020-08-25] MEDS: MORPHINE SULFATE ER 15 MG TABLET PO SCH (08:06)
[2020-08-25] MEDS: SUCRALFATE 1 GM TAB PO SCH (08:07)
[2020-08-25] MEDS: SERTRALINE 100 MG TAB PO SCH (08:07)
[2020-08-25] MEDS ORDERED: SULFAMETHOX-TMP 800-160MG 1 EACH TAB PO SCH (09:00)
[2020-08-25] MEDS ORDERED: NON FORMULARY DRUG (Atomoxetine Hcl [Strattera] 80 MG Capsule) PO SCH (09:00)
[2020-08-25] MEDS ORDERED: PANTOPRAZOLE 40 MG TABLET PO SCH (09:00)
[2020-08-25 09:14] LABS: African American GFR (CKD) 77.9 (60.0-200.0); Albumin 4.2 g/dL (3.80-4.90); Albumin/Globulin Ratio 2.47 (1.60-3.17); Anion Gap 8.1 mmol/L (4.00-12.00); Calcium 8.9 mg/dL (8.7-10.3); Carbon Dioxide 20.9 mmol/L (21.6-31.8); Globulin 1.7 g/dL (1.6-3.3); Non-African American GFR(CKD) 67.2 (60.0-200.0); Potassium 3.6 mmol/L (3.5-5.5); Total Bilirubin 0.5 mg/dL (0.2-1.2); Total Protein 5.9 g/dL (6.2-8.2)
[2020-08-25 13:46] VITALS: BP 128/66; PULSE 75; RESP 18; TEMP 98.4
--- NOTE | 2020-08-25 16:03 | P.PN ---
Subjective Progress Note Date: 08/25/20 Pt is overall improved. He denies any recurrence of nausea or vomiting. He feels stronger. Appetite has improved. He denied any significant diarrhea. Objective - Vital Signs Vital signs: Vital Signs Temp 98.4 F 08/25/20 13:45 Pulse 75 08/25/20 13:45 Resp 18 08/25/20 13:45 BP 128/66 08/25/20 13:45 Pulse Ox 98 08/25/20 13:45 Intake & Output 08/24/20 08/25/20 08/25/20 18:59 06:59 18:59 Other: # Voids 2 # Bowel Movements 0 0 - Constitutional General appearance: Present: no acute distress - EENT Eyes: Present: EOMI ENT: Present: hearing grossly normal, normal oropharynx - Respiratory Respiratory: bilateral: CTA - Cardiovascular Rhythm: regular Heart sounds: normal: S1, S2 - Gastrointestinal General gastrointestinal: Present: normal bowel sounds, soft - Integumentary Integumentary: Present: normal - Neurologic Neurologic: Present: CNII-XII intact - Musculoskeletal Musculoskeletal: Present: generalized weakness, strength equal bilaterally - Psychiatric Psychiatric: Present: A&O x's 3, appropriate affect - Labs CBC & Chem 7: 08/25/20 06:00 08/25/20 06:00 Labs: Abnormal Lab Results - Last 24 Hours (Table) 08/25/20 08/25/20 Range/Units 06:00 06:00 WBC 1.7 L (3.8-10.6) k/uL RBC 3.48 L (4.30-5.90) m/uL Hgb 11.3 L (13.0-17.5) gm/dL Hct 34.9 L (39.0-53.0) % MCV 100.1 H (80.0-100.0) fL RDW 16.0 H (11.5-15.5) % Plt Count 80 L (150-450) k/uL Lymphocytes # 0.1 L (1.0-4.8) k/uL Chloride 111 H (96-109) mmol/L Carbon Dioxide 20.9 L (21.6-31.8) mmol/L Total Protein 5.9 L (6.2-8.2) g/dL Assessment and Plan (1) Intractable cyclical vomiting with nausea Narrative/Plan: This is essentially resolved. He is tolerating his diet well. This could be due to delayed effect of chemotherapy. Effect of impending white count recovery of receiving Neulasta is also possibility. Infectious cause appears to be unlikely, based on his clinical presentation as well as negative testing for coronavirus and influenza. - Okay to discharge from oncology standpoint. The patient has oral antibiotics at home. Discussed with the admitting service Current Visit: Yes Status: Acute Priority: High Code(s): R11.15 - CYCLICAL VOMITING SYNDROME UNRELATED TO MIGRAINE SNOMED Code(s): 14101972 (2) Pancytopenia due to antineoplastic chemotherapy Narrative/Plan: WBC dropped to 1.7 today. Hemoglobin and platelets are in a safe range. The patient has already received Neulasta. Some infection. Therefore okay to discharge. He has follow-up in the office next week when his counts will be rechecked Current Visit: Yes Status: Acute Code(s): D61.810 - ANTINEOPLASTIC CHEMOTHERAPY INDUCED PANCYTOPENIA; T45.1X5A - ADVERSE EFFECT OF ANTINEOPLASTIC AND IMMUNOSUP DRUGS, INIT SNOMED Code(s): 764000818916919 (3) Lymphoma Narrative/Plan: Follow-up in the office next week. Assuming recovery is satisfactory, he will be set up for the next cycle of chemotherapy. Current Visit: No Status: Chronic Priority: Medium Code(s): C85.90 - NON- HODGKIN LYMPHOMA, UNSPECIFIED, UNSPECIFIED SITE SNOMED Code(s): 674258772
== END 2020-08-25 16:15 | disposition home or self-care (01) ==
LOC: EC 05:46 → 1SOBS 06:44 → 5NMEDONC 08-24 08:00
PROVIDERS: ADMIT Family Medicine; ATTEND Family Medicine
DX: R11.15 Cyclical vomiting syndrome unrelated to migraine (principal); R11.2 Nausea with vomiting, unspecified; R53.1 Weakness; M79.10 Myalgia, unspecified site; R50.9 Fever, unspecified; R10.84 Generalized abdominal pain; R19.7 Diarrhea, unspecified; R63.0 Anorexia; C85.90 Non-Hodgkin lymphoma, unspecified, unspecified site; D61.810 Antineoplastic chemotherapy induced pancytopenia; T45.1X5A Adverse effect of antineoplastic and immunosuppressive drugs, initial encounter; J44.9 Chronic obstructive pulmonary disease, unspecified; K21.9 Gastro-esophageal reflux disease without esophagitis; T80.810A Extravasation of vesicant antineoplastic chemotherapy, initial encounter; L27.1 Localized skin eruption due to drugs and medicaments taken internally; K57.90 Diverticulosis of intestine, part unspecified, without perforation or abscess without bleeding; F90.9 Attention-deficit hyperactivity disorder, unspecified type; F41.9 Anxiety disorder, unspecified; F31.9 Bipolar disorder, unspecified; F17.210 Nicotine dependence, cigarettes, uncomplicated; Z68.33 Body mass index [BMI] 33.0-33.9, adult; Z79.899 Other long term (current) drug therapy; Z79.891 Long term (current) use of opiate analgesic; Z79.2 Long term (current) use of antibiotics; Z91.09 Other allergy status, other than to drugs and biological substances; Z91.040 Latex allergy status; Z87.19 Personal history of other diseases of the digestive system; Z87.448 Personal history of other diseases of urinary system; Z92.3 Personal history of irradiation; Z87.09 Personal history of other diseases of the respiratory system; Z87.11 Personal history of peptic ulcer disease; Z86.14 Personal history of Methicillin resistant Staphylococcus aureus infection; Z98.890 Other specified postprocedural states; Z82.49 Family history of ischemic heart disease and other diseases of the circulatory system; Z81.8 Family history of other mental and behavioral disorders; Y84.8 Other medical procedures as the cause of abnormal reaction of the patient, or of later complication, without mention of misadventure at the time of the procedure
CPT/HCPCS: 96376 ×2; 96361; 96374; 96375; 99285; 36415; 93005; 36410; 76937; 80053 ×3; 82728; 82550; 83605; 83615; 83735; 84100; 84484; 85025 ×3; 85610; 85730; 86140; 81003; 87502; 84145; 87635; 71046; G0378 ×4; J2060; J2270; J1200 ×2; J2765; J2405

== ENCOUNTER → 2020-09-15 | Outpatient (CLI) | payer OTHER ==
--- NOTE | 2020-09-18 08:39 | PE ---
EXAMINATION TYPE: PET CT fusion skull to thigh DATE OF EXAM: 09/15/2020 COMPARISON: Prior PET/CT May 26, 2020 and older studies. HISTORY: Lymphoma involving neck chest and right groin initially diagnosed December 2018, active recurre nce in May 2020 , interval radiation and chemotherapy treatment. TECHNIQUE: Following the intravenous administration of 13.0 mCi of F-18 FDG, whole body images are p erformed from the skull base to the midthigh. Images are reviewed on the computer in the coronal, ax ial, and sagittal planes. Reconstructed rotating images are created on independent workstation and r eviewed on the computer. A localization and attenuation correction CT is performed in conjunction w ith the PET scan. SCAN: Subsequent Scan FINDINGS: The examination is noted suboptimal due to patient's large body habitus. Mean SUV mediastinum: 0.85 Mean SUV liver: 1.46 SKULL BASE AND NECK: Left posterior tongue at area of increased soft tissue and hypermetabolic uptak e prior study shows more symmetry with minimal hypermetabolic uptake, max SUV 3.08, positive treatmen t response. Hypermetabolic uptake anterior right submandibular level centered near level of hyoid bone, for refer ence lymph node measures 3.4 x 1.6 cm current study image 31, max SUV is 5.23 on axial image 34 versu s 3.6 x 2.0 cm axial image 44 new from prior PET CT, max SUV is 7.08. Some improvement. There is [place] new hypermetabolic lymph node posterior to this just anterior to right internal jugular vein jan uring 1.6 x 1.6 cm, max SUV is 4.35 on axial image 32. CHEST, MEDIASTINUM, AND HILAR REGION: No new areas of abnormal hypermetabolic uptake. ABDOMEN AND PELVIS: Persistent but improved large right pelvic hypermetabolic mass or adenopathy alyce cent to the iliac is muscle measuring roughly 7.9 x 4.9 cm axial image 213, max SUV is 16.65 on axial image 215. No new areas of abnormal hypermetabolic uptake. OSSEOUS STRUCTURES: No new areas of abnormal hypermetabolic uptake. OTHER CT: Stable Left subclavian Mediport catheter . Prominent bilateral subareolar nodular gynecomas tia redemonstrated. Liver remains diffusely low dense consistent with diffuse fatty infiltration. Dependent calcified sma ll gallstones redemonstrated. Persistent severe right-sided hydronephrosis with delayed excretion due to obstruction or mass effect from the right pelvic hypermetabolic mass or adenopathy. IMPRESSION: Overall mixed response. Improvement in the primary right neck and right pelvic neoplasm. There is however new posterior right neck hypermetabolic mass or adenopathy. Left posterior tongue ba se findings improved could reflect positive treatment response.
== END | disposition home or self-care (01) ==
LOC: RADPETMAIN 07:20
PROVIDERS: ATTEND Internal Medicine Hematology & Oncology
DX: D49.89 Neoplasm of unspecified behavior of other specified sites (principal); C85.88 Other specified types of non-Hodgkin lymphoma, lymph nodes of multiple sites; Z92.21 Personal history of antineoplastic chemotherapy
CPT/HCPCS: 78815; A9552

== ENCOUNTER 2020-09-22 08:52 | Inpatient (IN) | payer OTHER ==
[2020-09-22 10:33] LABS: Anisocytosis Slight; Basophils % (A) 0 %; Eosinophils # (A) 0.2 k/uL (0-0.7); Eosinophils % (A) 4 %; HCT 37.3 % (39.0-53.0); HGB 11.9 gm/dL (13.0-17.5); Lymphocytes # (A) 0.3 k/uL (1.0-4.8); Lymphocytes % (A) 5 %; MCH 32.4 pg (25.0-35.0); MCV 101.4 fL (80.0-100.0); Macrocytosis Moderate; Mean Platelet Volume 7.1; Monocytes # (A) 0.4 k/uL (0-1.0); Monocytes % (A) 7 %; Neutrophils # (A) 4.8 k/uL (1.3-7.7); Neutrophils % (A) 82 %; RBC 3.68 m/uL (4.30-5.90); RDW 17.3 % (11.5-15.5); WBC 5.8 k/uL (3.8-10.6)
[2020-09-22 10:38] LABS: ALT 18 U/L (4-49); AST 24 U/L (17-59); African American GFR (CKD) 76 (>60 ml/min/1.73 sqM); Albumin/Globulin Ratio 1.8; Alkaline Phosphatase 64 U/L (38-126); Anion Gap 4 mmol/L; Blood Urea Nitrogen 14 mg/dL (9-20); Calcium 8.9 mg/dL (8.4-10.2); Carbon Dioxide 30 mmol/L (22-30); Chloride 104 mmol/L (98-107); Globulin 2.2 g/dL; Glucose 116 mg/dL (74-99); Non-African American GFR(CKD) 66 (>60 ml/min/1.73 sqM); Phosphorus 4.1 mg/dL (2.5-4.5); Sodium 138 mmol/L (137-145); Total Bilirubin 0.4 mg/dL (0.2-1.3); Total Protein 6.2 g/dL (6.3-8.2); Uric Acid 5.2 mg/dL (3.5-8.5)
[2020-09-22 10:42] LABS: Platelet Count 184 k/uL (150-450)
[2020-09-22] MEDS: SODIUM CHLORIDE 0.9% 1,000 ML IV SCH ×2 (11:51→21:46)
[2020-09-22] MEDS: ONDANSETRON 16 MG in SODIUM CHLORIDE 0.9% 50 ML IVPB SCH (11:52)
[2020-09-22] MEDS: FAMOTIDINE 20 MG/2 ML VIAL IV SCH (11:53)
[2020-09-22] MEDS: DEXAMETHASONE SOD PHOSPHATE 10 MG/ML 1 ML VIAL IV SCH (11:53)
[2020-09-22] MEDS: ETOPOSIDE IV SCH (12:14)
[2020-09-22] MEDS: SODIUM CHLORIDE 0.9% IV SCH (12:14)
[2020-09-22] MEDS ORDERED: HYDROcodone/APAP 10-325MG 1 EACH TAB PO PRN (15:22)
--- NOTE | 2020-09-22 15:54 | P.HPIM ---
History of Present Illness H&P Date: 09/22/20 Chief Complaint: Timed Chemo Mister Lamb is a 55 yr old white male, initially seen in consult on 12/15/18. He had presented to [facility] with complaints of persistent fatigue, and progressively increasing shortness of breath on exertion. He had had a weight loss of about 30 pounds in the prior 3-4 months. Imaging at [facility] revealed evidence of obstructive uropathy and diffuse adenopathy above and below the diaphragm.. On examination he appeared to have right supraclavicular nodes are palpable, at least about 2 cm. he underwent a right supraclavicular lymph node biopsy on 12/16/18, and was then discharged. 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 This was sent to the [facility] for a consultation. 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 ALK testing was negative. Be an T-cell rearrangement studies were ordered. Surprisingly B cell gene rearrangement, IGH an IgG daily for clonal, while T-cell rearrangements were negative. 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 the patient had a bone marrow aspiration biopsy on 01/15/19. A PET scan was ordered but the patient did not keep that appointment. he was also referred to the [facility], part the appointment was delayed due to to have not having insurance. This was scheduled for 02/08/19 His bone marrow showed significant involvement with lymphoma. Gene rearrangement studies did not show B or T cell markers!! The pt however got admitted to [facility] with progressive symptoms. He was thus started on EPOCH inpt on 02/07/19. His stay was complicated by extravasation of chemo causing soft tissue damage in the rt upper chest wall.Fortunately there was no deep tissue necrosis, and this was treated supportively. He continued chemo with a LUE PICC line. He was readmitted after C 2 with thrush, mucositis and febrile neutropenia after C 2, and improved with supportive care. PET scan post C 2 was delayed as the pt did not get it done. He had that on 04/10/19. This showed resolution of FDG activity above the diaphragm, and in the upper abdomen. However, adenopathy along the rt iliac chain showed increase, wth persistent marked uptake. He had a repeat biopsy revealing NHL. the patient was seen at the [facility] by Dr. Pierson and case reviewed. It was recommended that the patient did have a significant response, and should continue with the chemotherapy, with Cytoxan/Adriamycin/Brentuximab/Prednisone combination targeting CD30. he started the same on 06/22/19 and is s/p 2 cycles. He was admitted after cycle 1 for febrile neutropenia. He also developed breakdown of soft tissue along the chest wall and had his port removed as well as debridement. G-CSF was added with cycle 2. the patient had also been referred to bone marrow transplant at the [facility] and was ultimately seen there on 07/27/19. They informed us that his biopsy from the right iliac lymph node had been obtained and reviewed at the [facility]. the report was formalized after his consultation there in 06/24, and had indicated that this was actually a B-cell lymphoma! His slides from his other biopsies were requested for comparison at the [facility]. This was on hold as the pt delayed coming in for signing the release form, but was ultimately done. His prior slides were subsequently received and reviewed at the [facility]. Case was discussed with the pathologist. 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 Treatment had to be placed on hold because of active wound in the right upper chest wall with slow healing. Repeat CT scan from 10/25 showed essentially stable findings with persistent terence mass in the right iliac area. the patient was continued on observation, with repeat CT scans in late 12/23 again showing stable findings. the patient was referred back to [facility] and seen there in 02/22. It was recommended that he resume chemotherapy with the same regimen. Chest wall lesion continued to improve and healing was finally felt to be satisfactory by 03/25. He resumed CHP-Adcetris on 04/12/20 and is status post 2 cycles (total 4) when seen in the office after cycle 2 he was complaining of significant right- sided abdominal pain. He was admitted to the hospital with CT scans revealing likely progression in the right pelvic mass with some increase in adjacent adenopathy. He was treated symptomatically for pain control. He was seen by urology during that visit, and not felt to be a candidate for stenting for his right hydronephrosis, as this was chronic and not felt to be the source of his pain. Renal function was also normal. Post discharge patient had a PET scan on 05/26/20. This confirmed marked uptake with increase in size of the right pelvic mass and adjacent lymph nodes. There was also increased uptake noted in the left base of tongue, and right submandibular node. Mediastinal nodes, however, showed improvement compared to before The patient was referred for radiation to the large right pelvic mass which was the main site of progression. He completed the same at [facility] with dramatic improvement. Case was again reviewed with [facility], and it was commented that he start salvage chemotherapy with ICE. He was admitted for cycle 1 of ICE on 07/17/20. He had no cough medication during hospitalization and was discharged after completion of chemotherapy. He received Neulasta on 07/21/20. He did have acute admission since his first treatment with ICE last month for nausea, and burning in the upper abdomen, worse with certain foods. He developed overt nausea and vomiting yesterday and went to [facility]. He seemed to improve initially with supportive treatment but then developed recurrent vomiting and was transferred here. He denied any fevers, or change in bowel habits. He was treated with supportive care and improved. Seen at follow-up on 09/19/[address] Zafar and PET scan results and implications were discussed in detail with him. He appears to have had a partial response. The right posterior neck node mentioned is nonspecific, as there is no palpable node on exam. CBC is normal. plan is to discuss case with [facility] [place]. The patient was advised that ideally we would want to see a complete or near complete response. However given limited options, and the fact that he has had multiple delays in his treatment schedule, another option would be to continue the same regimen for another 2-3 cycles with restaging. addendum[facility] Plan to continue with [facility] and refer patient back for evaluation for transplant or CAR - T Status Post cycle 2 of ICE 08/2020. Cycle #3 this admission Review of Systems All systems: negative Constitutional: Reports as per HPI Past Medical History Past Medical History: Cancer, COPD, GERD/Reflux, GI Bleed Additional Past Medical History / Comment(s): Non hodgkins lymphoma/R hydronephrosis/pelvic mass recently finished 20 radiation treatments/receiving chemotherapy, R chest wound nearly healed (chemo extravasation), bronchitis, past stomach ulcer, upper and lower GI bleeds, diverticular disease, constipation. History of Any Multi-Drug Resistant Organisms: MRSA Date of last positivie culture/infection: 06/03/19 MDRO Source:: chest wall Past Surgical History: No Surgical Hx Reported Additional Past Surgical History / Comment(s): R supraclavicular lymph node bx, bone marrow aspiration/bx, R iliac lymph node bx, R chest port/removed then had wound debridement/wound vac, L chest wall port, colonoscopy. Past Anesthesia/Blood Transfusion Reactions: No Reported Reaction Additional Past Anesthesia/Blood Transfusion Reaction / Comment(s): Pt has received blood in past without reaction. Past Psychological History: ADD/ADHD, Anxiety, Bipolar, Depression Additional Psychological History / Comment(s): Pt resides with his father. He states he feels he could benefit from some home care. Has difficulty managing meds at times/performing ADLS at times. No longer drives, he gets rides thru his insurance company. States depression has increased some but no thoughts or plans of suicide. Smoking Status: Never smoker Past Alcohol Use History: None Reported Additional Past Alcohol Use History / Comment(s): STARTED SMOKING AT AGE 14 HAS QUIT ON AND OFF CURRENTLY SMOKING 1/2PPD Past Drug Use History: None Reported Additional Drug Use History / Comment(s): Pt uses marijuana lately as a vapor for nausea - Past Family History Father Family Medical History: Coronary Artery Disease (CAD) Additional Family Medical History / Comment(s): Father has a cardiac stent. Mother Family Medical History: No Reported History Additional Family Medical History / Comment(s): Mother from dementia. Medications and Allergies Home Medications Medication Instructions Recorded Confirmed Type Ondansetron [Zofran] 4 mg PO Q4H PRN 05/15/20 09/22/20 History Sertraline [Zoloft] 200 mg PO DAILY 05/15/20 09/22/20 History HYDROcodone/APAP 10-325MG [[place] 1 tab PO Q4H PRN 07/17/20 09/22/20 History 10-325] Morphine Sulfate ER [Ms Contin] 15 mg PO BID 07/17/20 09/22/20 History QUEtiapine XR [SEROquel XR] 150 mg PO DAILY 07/17/20 09/22/20 History busPIRone HCL [Buspar] 30 mg PO BID 07/25/20 09/22/20 History Atomoxetine HCl [Strattera] 80 mg PO QAM 08/17/20 09/22/20 History Pantoprazole Sodium [Protonix] 40 mg PO DAILY 08/17/20 09/22/20 History QUEtiapine FUMARATE 100 mg PO HS 08/17/20 09/22/20 History Acyclovir 400 mg PO BID #60 tablet 08/19/20 09/22/20 Rx Allergies Allergy/AdvReac Type Severity Reaction Status Date / Time adhesive tape Allergy RED SKIN Verified 09/22/20 10:33 AND BLISTERS latex Allergy Rash/Hives Verified 09/22/20 10:33 ragweed pollen Allergy Wheezing Verified 09/22/20 10:33 Physical Exam Vitals: Vital Signs Temp Pulse Resp BP Pulse Ox 09/22/20 14:00 98.1 F 68 15 101/62 97 09/22/20 13:46 97.6 F 72 15 107/64 98 09/22/20 11:55 91/52 09/22/20 09:30 97.5 F L 67 16 81/54 98 Intake and Output 09/22/20 09/22/20 09/22/20 06:59 14:59 22:59 Other: Weight 134.263 kg - Constitutional General appearance: no acute distress - EENT Eyes: EOMI, PERRLA ENT: hearing grossly normal, normal oropharynx - Neck Neck: no lymphadenopathy Thyroid: bilateral: normal size - Respiratory Respiratory: bilateral: CTA - Cardiovascular Rhythm: regular Heart sounds: normal: S1, S2 - Gastrointestinal General gastrointestinal: normal bowel sounds, soft - Integumentary Right chest wall wound, now healed with chronic scarring. 1.5 cm ulcerated scabbed area in the inferior aspect, stable Mild erythema with skin exfoliation in both groin areas, postradiation, improved - Neurologic Neurologic: CNII-XII intact - Musculoskeletal Musculoskeletal: generalized weakness, strength equal bilaterally - Psychiatric Psychiatric: A&O x's 3, appropriate affect Results CBC & Chem 7: 09/22/20 10:07 09/22/20 10:07 Labs: Abnormal Lab Results - Last 24 Hours (Table) 09/22/20 09/22/20 Range/Units 10:07 10:07 RBC 3.68 L (4.30-5.90) m/uL Hgb 11.9 L (13.0-17.5) gm/dL Hct 37.3 L (39.0-53.0) % MCV 101.4 H (80.0-100.0) fL RDW 17.3 H (11.5-15.5) % Lymphocytes # 0.3 L (1.0-4.8) k/uL Glucose 116 H (74-99) mg/dL Total Protein 6.2 L (6.3-8.2) g/dL Thrombosis Risk Factor Assmnt - DVT/VTE Prophylaxis DVT/VTE Prophylaxis: Pharmacologic Prophylaxis ordered - Choose All That Apply Any of the Below Risk Factors Present?: Yes Each Factor Represents 1 point: Age 41-60 years Other Risk Factors: Yes Each Risk Factor Represents 2 Points: Central venous access Other congenital or acquired thrombophilia - If yes, enter type in comment: No Thrombosis Risk Factor Assessment Total Risk Factor Score: 3 Thrombosis Risk Factor Assessment Level: Moderate Risk Assessment and Plan Plan: Assessment and Plan: Non-Hodgkin's lymphoma in adult Details of personal history in HPI Today starting cycle three of ICE RBC urine check prior to each Ifos Daily CBC with Diff, CMP, LDH, Uric acid Lovenox VTE prophylaxis platelets greater than 50K PPI Office on Friday for Growth Factor Physician Attest: I have completed the full history and physical and developed the complete impression and plan, agree with above dictation, dictated as a scribe.
[2020-09-22] MEDS: MORPHINE SULFATE ER 15 MG TABLET PO SCH (21:46)
[2020-09-22] MEDS: QUEtiapine 100 MG TAB PO SCH (21:47)
[2020-09-22] MEDS: busPIRone HCl 10 MG TAB PO SCH (21:47)
[2020-09-22] MEDS: ACYCLOVIR 200 MG CAP PO SCH (21:47)
[2020-09-23] MEDS: SODIUM CHLORIDE 0.9% 1,000 ML IV SCH ×3 (02:18→21:25)
[2020-09-23 06:41] LABS: Anisocytosis Slight; Basophils % (A) 0 %; Eosinophils % (A) 0 %; HGB 11.8 gm/dL (13.0-17.5); Lymphocytes # (A) 0.2 k/uL (1.0-4.8); Lymphocytes % (A) 3 %; MCH 33.1 pg (25.0-35.0); MCHC 32.8 g/dL (31.0-37.0); MCV 100.6 fL (80.0-100.0); Macrocytosis Slight; Mean Platelet Volume 6.8; Monocytes # (A) 0.3 k/uL (0-1.0); Monocytes % (A) 5 %; Neutrophils # (A) 5.5 k/uL (1.3-7.7); Neutrophils % (A) 91 %; Platelet Count 151 k/uL (150-450); RBC 3.58 m/uL (4.30-5.90); RDW 16.6 % (11.5-15.5); WBC 6.1 k/uL (3.8-10.6)
[2020-09-23 10:08] LABS: African American GFR (CKD) 86.5 (60.0-200.0); Albumin 4.2 g/dL (3.80-4.90); Albumin/Globulin Ratio 3.23 (1.60-3.17); Anion Gap 6.2 mmol/L (4.00-12.00); BUN/Creat Ratio 16.36 Ratio (12.00-20.00); Calcium 8.8 mg/dL (8.7-10.3); Carbon Dioxide 24.8 mmol/L (21.6-31.8); Globulin 1.3 g/dL (1.6-3.3); Non-African American GFR(CKD) 74.6 (60.0-200.0); Phosphorus 3.3 mg/dL (2.4-5.1); Potassium 4.7 mmol/L (3.5-5.5); Total Bilirubin 0.4 mg/dL (0.2-1.2); Total Protein 5.5 g/dL (6.2-8.2); Uric Acid 5.8 mg/dL (3.7-8.7)
[2020-09-23] MEDS: MORPHINE SULFATE ER 15 MG TABLET PO SCH ×2 (10:55→21:11)
[2020-09-23] MEDS: ACYCLOVIR 200 MG CAP PO SCH ×2 (10:55→21:11)
[2020-09-23] MEDS: PANTOPRAZOLE 40 MG TABLET PO SCH (10:56)
[2020-09-23] MEDS: ENOXAPARIN 40 MG/0.4 ML SYRINGE SQ SCH (10:56)
[2020-09-23] MEDS: busPIRone HCl 10 MG TAB PO SCH ×2 (10:56→21:11)
[2020-09-23] MEDS: QUEtiapine 25 MG TAB PO SCH ×2 (10:57→18:17)
[2020-09-23] MEDS: SERTRALINE 100 MG TAB PO SCH (10:57)
[2020-09-23] MEDS: ONDANSETRON 16 MG in SODIUM CHLORIDE 0.9% 50 ML IVPB SCH (12:17)
[2020-09-23] MEDS: DEXAMETHASONE SOD PHOSPHATE 10 MG/ML 1 ML VIAL IV SCH (12:17)
[2020-09-23] MEDS: FAMOTIDINE 20 MG/2 ML VIAL IV SCH (12:17)
[2020-09-23] MEDS: ATOMOXETINE HCL 80 MG PO SCH (12:18)
--- NOTE | 2020-09-23 12:25 | CONS ---
CONSULTATION 55-year-old white male who is admitted for possibly 3 day chemotherapy for non- Hodgkin's lymphoma. Medical consult is being obtained. He is complaining of pain in his right lower quadrant in his leg, difficulties and not getting pain medicine he states. He had right upper chest extravasation of fluid a couple of years ago. PET scan was recently done, showed resolution of activity above the diaphragm and the upper abdomen, adenopathy in the right iliac chain, showed an increase with persistent marker uptake. He had a recent biopsy revealing NHL. He is going to continue with current chemo, Cytoxan, Adriamycin, semi prednisone combination CD30. He is fairly uncomfortable at this time. REVIEW OF SYSTEMS: As mentioned above. PAST MEDICAL HISTORY: Cancer, GERD, GI bleed, history of non-Hodgkin's lymphoma, anxiety, bipolar depression. home care. MEDICATIONS: Zofran, Zoloft, [place], MS Contin, Seroquel XR, BuSpar, Strattera, Protonix, Quetiapine, acyclovir. ALLERGIES: ADHESIVE TAPE. PHYSICAL EXAMINATION: Temp 98, pulse 60 to 70s, respiratory rate 16 to 18, blood pressure 80s to 107 over 50s to 60s, O2 97 to 98%. Pupils equal, round, reactive. Neck is supple. No mass. Respiratory clear. Cardiac S1-S2. Integument: Right chest wall shows scarring 1.5 cm ulcerated scabbed area in the inferior aspect. Neurologic: Cranial nerves are intact. Musculoskeletal: Generalized weakness. Strength decreased. Psych: Alert and oriented. ASSESSMENT: 1. Non-Hodgkin's lymphoma. He is going to get 3 cycles of ICE. Check labs. 2. Asthma/ chronic obstructive pulmonary disease. We will continue current treatments. Home medications will be ordered. Prognosis guarded. MMODL / IJN: [id number] /
[2020-09-23] MEDS: ETOPOSIDE IV SCH (14:49)
[2020-09-23] MEDS: SODIUM CHLORIDE 0.9% IV SCH (14:49)
--- NOTE | 2020-09-23 14:55 | PN ---
PROGRESS NOTE DATE OF SERVICE: 09/23/2020 CHIEF COMPLAINT: Tired. INTERVAL HISTORY: Shashank is seen today as a followup. He feels a little tired but overall is doing well. Denies any nausea or vomiting. No fever or chills. No melena, hematochezia, or hemoptysis. No hematuria. CURRENT MEDICATION: Reviewed in his electronic medical record. PHYSICAL EXAMINATION: He is alert and x3. No acute distress. His vital signs are temperature 98.1, pulse is 82, respiration 18, blood pressure 106/76. HEENT: Normocephalic, atraumatic. No icterus. NECK: Supple. CHEST: Lungs are clear to auscultation, resonant to percussion. HEART: Regular rate and rhythm. ABDOMEN: Soft. No tenderness. EXTREMITIES: Reveal no significant edema. SKIN: No significant bruises. LABORATORY DATA: WBC of 6.1, hemoglobin 11.8, hematocrit 36.0, platelets are 151. Sodium 142, potassium 4.7, chloride is 111. BUN is 18, creatinine 1.1. The AST is 20, ALT 17. IMPRESSION: Non-Hodgkin lymphoma. PLAN: The patient admitted to the hospital for cycle 3 of ICE. He is tolerating treatment well, the ICE regimen. Recommendation to the proceed with his chemotherapy as scheduled, ICE regimen. Supportive care. Monitor labs. MMODL / IJN: [id number] /
[2020-09-23] MEDS ORDERED: SODIUM CHLORIDE 0.9% IV ONE ×3 (15:00)
[2020-09-23] MEDS ORDERED: CARBOPLATIN IV ONE (15:00)
[2020-09-23] MEDS ORDERED: MESNA IV ONE (15:00)
[2020-09-23] MEDS ORDERED: IFOSFAMIDE IV ONE (15:00)
[2020-09-23] MEDS: QUEtiapine 100 MG TAB PO SCH (21:11)
[2020-09-24] MEDS: SODIUM CHLORIDE 0.9% 1,000 ML IV SCH ×3 (02:45→19:27)
[2020-09-24 07:13] LABS: Anisocytosis Slight; Basophils % (A) 0 %; Eosinophils % (A) 0 %; Hypochromasia Slight; Lymphocytes # (A) 0.2 k/uL (1.0-4.8); Lymphocytes % (A) 3 %; MCH 34.3 pg (25.0-35.0); MCHC 33.3 g/dL (31.0-37.0); MCV 102.9 fL (80.0-100.0); Macrocytosis Moderate; Mean Platelet Volume 7.4; Monocytes # (A) 0.3 k/uL (0-1.0); Monocytes % (A) 5 %; Neutrophils # (A) 4.8 k/uL (1.3-7.7); Neutrophils % (A) 91 %; Platelet Count 127 k/uL (150-450); RBC 3.21 m/uL (4.30-5.90); WBC 5.3 k/uL (3.8-10.6)
[2020-09-24] MEDS: PANTOPRAZOLE 40 MG TABLET PO SCH (07:34)
[2020-09-24] MEDS: ACYCLOVIR 200 MG CAP PO SCH ×2 (07:34→21:03)
[2020-09-24] MEDS: busPIRone HCl 10 MG TAB PO SCH ×2 (07:35→21:03)
[2020-09-24] MEDS: ENOXAPARIN 40 MG/0.4 ML SYRINGE SQ SCH (07:35)
[2020-09-24] MEDS: MORPHINE SULFATE ER 15 MG TABLET PO SCH ×2 (07:35→21:03)
[2020-09-24] MEDS: ATOMOXETINE HCL 80 MG PO SCH (07:36)
[2020-09-24] MEDS: QUEtiapine 25 MG TAB PO SCH ×2 (07:36→17:01)
[2020-09-24] MEDS: SERTRALINE 100 MG TAB PO SCH (07:37)
[2020-09-24] MEDS: ONDANSETRON 4 MG/2 ML VIAL IVP PRN ×2 (07:46→07:47)
[2020-09-24 09:14] LABS: ALT 18 U/L (4-49); AST 18 U/L (17-59); African American GFR (CKD) >90 (>60 ml/min/1.73 sqM); Albumin 3.4 g/dL (3.5-5.0); Albumin/Globulin Ratio 1.5; Alkaline Phosphatase 56 U/L (38-126); Anion Gap 5 mmol/L; Blood Urea Nitrogen 17 mg/dL (9-20); Calcium 8.3 mg/dL (8.4-10.2); Carbon Dioxide 23 mmol/L (22-30); Chloride 115 mmol/L (98-107); Globulin 2.3 g/dL; Glucose 97 mg/dL (74-99); LDH 422 U/L (313-618); Magnesium 1.9 mg/dL (1.6-2.3); Non-African American GFR(CKD) 78 (>60 ml/min/1.73 sqM); Phosphorus 3.3 mg/dL (2.5-4.5); Potassium 4.3 mmol/L (3.5-5.1); Sodium 143 mmol/L (137-145); Total Bilirubin 0.5 mg/dL (0.2-1.3); Total Protein 5.7 g/dL (6.3-8.2); Uric Acid 4.5 mg/dL (3.5-8.5)
[2020-09-24] MEDS: ONDANSETRON 16 MG in SODIUM CHLORIDE 0.9% 50 ML IVPB SCH (15:25)
[2020-09-24] MEDS: FAMOTIDINE 20 MG/2 ML VIAL IV SCH (15:26)
[2020-09-24] MEDS: DEXAMETHASONE SOD PHOSPHATE 10 MG/ML 1 ML VIAL IV SCH (15:26)
--- NOTE | 2020-09-24 15:35 | PN ---
PROGRESS NOTE DATE OF SERVICE: September 24, 2020. CHIEF COMPLAINT: Nausea. Shashank is seen today as a followup. He feels better. He has some nausea this morning but this resolved. Otherwise he is tolerating chemotherapy very well. No fever or chills. No melena, hematochezia, or hematuria. His current medication reviewed in his electronic medical record. PHYSICAL EXAMINATION: He is alert and oriented x3. No acute distress. Well developed, well nourished. Vital signs: Temperature 98.1, afebrile, pulse 67 and regular, respiration 18, blood pressure 148/76. HEENT: Normocephalic, atraumatic. No icterus. NECK: Supple. Chest equal expansion bilaterally. Lungs are clear to auscultation. Heart is regular rate and rhythm. ABDOMEN: Soft. No organomegaly. EXTREMITIES: No edema. SKIN no significant bruises. LABORATORY DATA: WBC of 5.3, hemoglobin 11.0, hematocrit 33.0, platelet 126. Sodium 143, potassium 4.3, chloride 115, CO2 is 25, BUN is 17, creatinine 1.0. LFTs are within normal limits. IMPRESSION: Non-Hodgkin lymphoma. The patient is admitted for systemic chemotherapy, ice regimen. PLAN: 1. Continue treatment as scheduled. 2. Continue supportive care. 3. Hopefully, the patient will be discharged home tomorrow. CROW / DEISY: [id number] /
[2020-09-24] MEDS: SODIUM CHLORIDE 0.9% IV SCH (16:50)
[2020-09-24] MEDS: ETOPOSIDE IV SCH (16:50)
[2020-09-24] MEDS: QUEtiapine 100 MG TAB PO SCH (21:04)
[2020-09-24 22:10] VITALS: RESP 16
[2020-09-25] MEDS: SODIUM CHLORIDE 0.9% 1,000 ML IV SCH ×2 (02:30→09:22)
--- NOTE | 2020-09-25 04:12 | PN ---
PROGRESS NOTE A 55-year-old with anemia, hemoglobin 11. Sodium 143, potassium 4.3, glucose 97, BUN 17, creatinine 1.07. CARDIOVASCULAR: S1, S2. LUNGS: Clear. GI: Soft. HEMATOLOGY: Negative Homans He is on day 3 chemo. His has thrombocytopenia with platelets 127. He is feeling pretty good in general. His hemoglobin is stable at 11. White count 5.3. ASSESSMENT: 1. Beta cell lymphoma. 2. Bipolar disorder. Lovenox is given for immobility and for DVT prophylaxis. He is on carboplatin, BuSpar for anxiety. He is on pain medicines for his chronic pain and bipolar medicines continued. Please see further orders. Possible discharge home soon. MMODL / IJN: [id number] /
[2020-09-25 07:19] LABS: Anisocytosis Slight; Basophils % (A) 0 %; Eosinophils % (A) 0 %; HCT 32.5 % (39.0-53.0); HGB 10.6 gm/dL (13.0-17.5); Hypochromasia Slight; Lymphocytes # (A) 0.2 k/uL (1.0-4.8); Lymphocytes % (A) 4 %; MCH 33.9 pg (25.0-35.0); MCHC 32.8 g/dL (31.0-37.0); MCV 103.5 fL (80.0-100.0); Macrocytosis Moderate; Mean Platelet Volume 7.9; Monocytes # (A) 0.1 k/uL (0-1.0); Monocytes % (A) 3 %; Neutrophils % (A) 92 %; Platelet Count 119 k/uL (150-450); RBC 3.14 m/uL (4.30-5.90); RDW 16.6 % (11.5-15.5); WBC 4.3 k/uL (3.8-10.6)
[2020-09-25] MEDS: ACYCLOVIR 200 MG CAP PO SCH (08:42)
[2020-09-25] MEDS: ENOXAPARIN 40 MG/0.4 ML SYRINGE SQ SCH (08:43)
[2020-09-25] MEDS: QUEtiapine 25 MG TAB PO SCH (08:43)
[2020-09-25] MEDS: MORPHINE SULFATE ER 15 MG TABLET PO SCH (08:43)
[2020-09-25] MEDS: PANTOPRAZOLE 40 MG TABLET PO SCH (08:43)
[2020-09-25] MEDS: busPIRone HCl 10 MG TAB PO SCH (08:44)
[2020-09-25] MEDS: SERTRALINE 100 MG TAB PO SCH (08:45)
[2020-09-25] MEDS: ATOMOXETINE HCL 80 MG PO SCH (08:45)
[2020-09-25 09:33] VITALS: BP 133/66; PULSE 81; TEMP 98.4
[2020-09-25 11:46] LABS: African American GFR (CKD) 86.5 (60.0-200.0); Albumin 3.8 g/dL (3.80-4.90); Albumin/Globulin Ratio 2.92 (1.60-3.17); Anion Gap 2.2 mmol/L (4.00-12.00); BUN/Creat Ratio 14.55 Ratio (12.00-20.00); Calcium 8.5 mg/dL (8.7-10.3); Carbon Dioxide 24.8 mmol/L (21.6-31.8); Globulin 1.3 g/dL (1.6-3.3); Magnesium 1.8 mg/dL (1.5-2.4); Non-African American GFR(CKD) 74.6 (60.0-200.0); Potassium 4.4 mmol/L (3.5-5.5); Total Bilirubin 0.6 mg/dL (0.2-1.2); Total Protein 5.1 g/dL (6.2-8.2)
[2020-09-25 11:47] LABS: Phosphorus 2.9 mg/dL (2.4-5.1); Uric Acid 4.3 mg/dL (3.7-8.7)
--- NOTE | 2020-09-25 15:49 | P.DS ---
Providers Date of admission: 09/22/20 08:52 Expected date of discharge: 09/25/20 Attending physician: Dennys Zafar Consults: 09/22/20 22:52 Consult Physician Routine Consulting Provider: Randy Leroy Consult Reason/Comments: medical Management Do you want consulting provider notified?: Yes, Notify in am Primary care physician: Dennys Zafar Hospital Course: Pt admitted for cycle #3 of ICE. He progressed well through treatment, stayed active, eating and drinking. No fevers or moderate/severe side effects. He is anxious to go home. Procedures: none Patient Condition at Discharge: Stable Plan - Discharge Summary Discharge Rx Participant: No New Discharge Prescriptions: New Sulfamethox-Tmp 800-160Mg [Bactrim DS 800-160 mg] 1 tab PO DIRECTED #6 tab Continue Acyclovir 400 mg PO BID #60 tablet No Action Sertraline [Zoloft] 200 mg PO DAILY Ondansetron [Zofran] 4 mg PO Q4H PRN PRN Reason: Nausea QUEtiapine XR [SEROquel XR] 150 mg PO DAILY HYDROcodone/APAP 10-325MG [[place] 10-325] 1 tab PO Q4H PRN PRN Reason: Pain Morphine Sulfate ER [Ms Contin] 15 mg PO BID busPIRone HCL [Buspar] 30 mg PO BID QUEtiapine FUMARATE 100 mg PO HS Pantoprazole Sodium [Protonix] 40 mg PO DAILY Atomoxetine HCl [Strattera] 80 mg PO QAM Discharge Medication List Ondansetron [Zofran] 4 mg PO Q4H PRN 05/15/20 [History] Sertraline [Zoloft] 200 mg PO DAILY 05/15/20 [History] HYDROcodone/APAP 10-325MG [[place] 10-325] 1 tab PO Q4H PRN 07/17/20 [History] Morphine Sulfate ER [Ms Contin] 15 mg PO BID 07/17/20 [History] QUEtiapine XR [SEROquel XR] 150 mg PO DAILY 07/17/20 [History] busPIRone HCL [Buspar] 30 mg PO BID 07/25/20 [History] Atomoxetine HCl [Strattera] 80 mg PO QAM 08/17/20 [History] Pantoprazole Sodium [Protonix] 40 mg PO DAILY 08/17/20 [History] QUEtiapine FUMARATE 100 mg PO HS 08/17/20 [History] Acyclovir 400 mg PO BID #60 tablet 09/25/20 [Rx] Sulfamethox-Tmp 800-160Mg [Bactrim DS 800-160 mg] 1 tab PO DIRECTED #6 tab 09/25/20 [Rx] Follow up Appointment(s)/Referral(s): Dennys Zafar MD [Primary Care Provider] - 09/26/20 11:00 am (Appt is at the [facility] on the [facility]. Neulasta injection) Patient Instructions/Handouts: Sulfamethoxazole/Trimethoprim (By mouth), Acyclovir (By mouth), Non-Hodgkin Lymphoma (DC) Activity/Diet/Wound Care/Special Instructions: Activity limited. Follow-up with Oncologist as scheduled. Discharge Disposition: HOME WITH HOME HEALTH SERVICES Pending Studies Pending Results: none
== END 2020-09-25 12:02 | disposition home or self-care (01) | DRG 847 ==
LOC: 5NMEDONC 08:52
PROVIDERS: ADMIT Internal Medicine Hematology & Oncology; ATTEND Internal Medicine Hematology & Oncology
DX: Z51.11 Encounter for antineoplastic chemotherapy (principal); C85.80 Other specified types of non-Hodgkin lymphoma, unspecified site; F31.30 Bipolar disorder, current episode depressed, mild or moderate severity, unspecified; J44.9 Chronic obstructive pulmonary disease, unspecified; G89.29 Other chronic pain; F90.9 Attention-deficit hyperactivity disorder, unspecified type; F41.9 Anxiety disorder, unspecified; D69.6 Thrombocytopenia, unspecified; D64.9 Anemia, unspecified; B37.9 Candidiasis, unspecified; D70.9 Neutropenia, unspecified; K12.30 Oral mucositis (ulcerative), unspecified; N13.9 Obstructive and reflux uropathy, unspecified; K21.9 Gastro-esophageal reflux disease without esophagitis; Z87.891 Personal history of nicotine dependence; Z87.11 Personal history of peptic ulcer disease; Z82.49 Family history of ischemic heart disease and other diseases of the circulatory system; Z79.899 Other long term (current) drug therapy; Z86.14 Personal history of Methicillin resistant Staphylococcus aureus infection; Z81.8 Family history of other mental and behavioral disorders; Z91.040 Latex allergy status; Z91.09 Other allergy status, other than to drugs and biological substances
CPT/HCPCS: 80053; 83615; 83735; 84100; 84550; 85025

== ENCOUNTER 2020-10-16 08:14 | Inpatient (IN) | payer OTHER ==
[2020-10-16] MEDS: SODIUM CHLORIDE 0.9% 1,000 ML IV SCH ×2 (09:30→17:29)
[2020-10-16] MEDS: HYDROcodone/APAP 10-325MG 1 EACH TAB PO PRN ×2 (10:01→16:35)
[2020-10-16 10:59] LABS: Anisocytosis Slight; Basophils % (A) 1 %; Eosinophils # (A) 0.1 k/uL (0-0.7); Eosinophils % (A) 2 %; HCT 31.9 % (39.0-53.0); HGB 10.9 gm/dL (13.0-17.5); Lymphocytes # (A) 0.3 k/uL (1.0-4.8); Lymphocytes % (A) 6 %; MCH 35.2 pg (25.0-35.0); MCHC 34.3 g/dL (31.0-37.0); MCV 102.5 fL (80.0-100.0); Macrocytosis Moderate; Mean Platelet Volume 6.6; Monocytes # (A) 0.5 k/uL (0-1.0); Monocytes % (A) 11 %; Neutrophils # (A) 3.4 k/uL (1.3-7.7); Neutrophils % (A) 79 %; Platelet Count 167 k/uL (150-450); RBC 3.11 m/uL (4.30-5.90); RDW 17.1 % (11.5-15.5); WBC 4.3 k/uL (3.8-10.6)
[2020-10-16 11:14] LABS: ALT 17 U/L (4-49); AST 24 U/L (17-59); African American GFR (CKD) 82 (>60 ml/min/1.73 sqM); Albumin 3.8 g/dL (3.5-5.0); Albumin/Globulin Ratio 1.7; Alkaline Phosphatase 78 U/L (38-126); Anion Gap 3 mmol/L; Blood Urea Nitrogen 9 mg/dL (9-20); Carbon Dioxide 29 mmol/L (22-30); Chloride 109 mmol/L (98-107); Globulin 2.3 g/dL; Glucose 94 mg/dL (74-99); Non-African American GFR(CKD) 71 (>60 ml/min/1.73 sqM); Phosphorus 3.1 mg/dL (2.5-4.5); Potassium 4.3 mmol/L (3.5-5.1); Sodium 141 mmol/L (137-145); Total Bilirubin 0.3 mg/dL (0.2-1.3); Total Protein 6.1 g/dL (6.3-8.2); Uric Acid 3.9 mg/dL (3.5-8.5)
[2020-10-16] MEDS: ONDANSETRON 16 MG in SODIUM CHLORIDE 0.9% 50 ML IVPB SCH (11:59)
[2020-10-16] MEDS: DEXAMETHASONE SOD PHOSPHATE 10 MG/ML 1 ML VIAL IV SCH (12:00)
[2020-10-16] MEDS: FAMOTIDINE 20 MG/2 ML VIAL IVP SCH (12:00)
[2020-10-16] MEDS: ETOPOSIDE IV SCH (12:05)
[2020-10-16] MEDS: SODIUM CHLORIDE 0.9% IV SCH (12:05)
[2020-10-16] MEDS ORDERED: SENNOSIDES-DOCUSATE SODIUM 1 EACH TAB PO PRN (14:23)
--- NOTE | 2020-10-16 14:47 | P.HPIM ---
History of Present Illness H&P Date: 10/16/20 Chief Complaint: Admit CIVI ICE for refractory NHL Mr. Lamb is a 55 yr old white male admitted for cycle #4 of ICE. He has right low back discomfort, radiates down his leg at times, his pain meds do help. He denies fever, oral irritation, nausea, cough, chest pain, palpitations, diarrhea, constipation, swelling or bleeding. He is aware he needs f/u imaging after this cycle and referral back to Dr. Pierson for evaluation for BMT or CAR - T Malignancy Hx: Initially seen in consult on 12/15/18. Presented to [facility] c/o persistent fatigue progressively increasing shortness of breath on exertion. He had 30lb wt loss in the prior 3-4 months. Imaging revealed evidence of obstructive uropathy and diffuse adenopathy above and below the diaphragm.. On examination he appeared to have right supraclavicular nodes are palpable, at least about 2 cm. Right supraclavicular lymph node biopsy 12/16/18. Initial biopsy report appeared to indicate Hodgkin lymphoma versus anaplastic T- cell lymphoma. This was sent to the [facility] for a consultation. 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 ALK testing was negative. B and T-cell rearrangement studies were ordered. Surprisingly, B cell gene rearrangement, T-cell rearrangements were negative. Despite the gene rearrangement studies, it was the opinion of the consulting pathologist at the [facility] that the morphologic and IHC characteristics best supported a PTCL. Bone marrow aspiration biopsy on 01/15/19. Bone marrow showed significant involvement with lymphoma. Gene rearrangement studies did not show B or T cell markers!! A PET scan was ordered but the patient did not keep that appointment. He was referred to the [facility] [place], appt delayed due to not having insurance. He ended up admitted to [facility] with progressive symptoms. He was started on EPOCH inpt on 02/07/19. His stay was complicated by extravasation of chemo causing soft tissue damage in the rt upper chest wall. Fortunately there was no deep tissue necrosis, and this was treated supportively. He was readmitted after C 2 with thrush, mucositis and febrile neutropenia. PET scan post C 2 was delayed as the pt did not get it done, finally done 04/10/19. Showed resolution of FDG activity above the diaphragm, and in the upper abdomen. However, adenopathy along the rt iliac chain showed increase, wth persistent marked uptake. He had a repeat biopsy revealing NHL. Seen at the [facility] by Dr. Pierson and case reviewed. It was recommended that the patient should continue with the chemotherapy, with Cytoxan/Adriamycin/Brentuximab/Prednisone combination targeting CD30. Started the same on 06/22/19. He was admitted after cycle 1 for febrile neutropenia. He also developed breakdown of soft tissue along the chest wall and had his port removed as well as debridement. G-CSF was added with cycle 2. Patient had also been referred to bone marrow transplant at the [facility] and was ultimately seen there on 07/27/19. They informed us that his biopsy from the right iliac lymph node had been obtained and reviewed at the [facility]. The report was formalized after his consultation there in 06/24, and had indicated that this was actually a B-cell lymphoma! His slides from his other biopsies were requested for comparison at the [facility]. This was on hold as the pt delayed coming in for signing the release form, but was ultimately done. His prior slides were subsequently received and reviewed at the [facility]. Case was discussed with the Pathologist. They felt that his initial biopsy represented a B cell lymphoma with characteristics of diffuse large B cell and Hodgkin's disease. Treatment had to be placed on hold because of active wound in the right upper chest wall with slow healing. Repeat CT scan from 10/25 showed essentially stable findings with persistent terence mass in the right iliac area. He continued on observation, with repeat CT scans in late 12/23 again showing stable findings. Seen at [facility] 02/22. It was recommended that he resume chemotherapy with the same regimen. Chest wall lesion continued to improve and healing was finally felt to be satisfactory by 03/25. He resumed CHP-Adcetris on 04/12/20. When seen in the office after cycle 2 he was complaining of significant right-sided abdominal pain. He was admitted to the hospital with CT scans revealing likely progression in the right pelvic mass with some increase in adjacent adenopathy. He was seen by Urology during that visit, and not felt to be a candidate for stenting for his right hydronephrosis, as this was chronic and not felt to be the source of his pain. Renal function was also normal. PET 05/26/20 showed marked uptake with increase in size of the right pelvic mass and adjacent lymph nodes. There was also increased uptake noted in the left base of tongue, and right submandibular node. Mediastinal nodes, however, showed improvement compared to before. Referred for radiation to the large right pelvic mass which was the main site of progression. He completed the same at [facility] with dramatic improvement. Case was again reviewed with I, and it was recommended salvage chemotherapy with ICE. Cycle 1 of ICE on 07/17/20. He received Neulasta on 07/21/20. He did have acute admission since his first treatment with ICE, treated with supportive care and improved. Seen 09/19/[address] Zafar and PET shows a partial response. The right posterior neck node mentioned is nonspecific, there is no palpable node on exam. Plan is to continue the same regimen then restaging. Review of Systems 14 point ROS is negative except as stated in HPI Past Medical History Past Medical History: Cancer, COPD, GERD/Reflux, GI Bleed Additional Past Medical History / Comment(s): Non hodgkins lymphoma/R hydronephrosis/pelvic mass recently finished 20 radiation treatments/receiving chemotherapy, R chest wound nearly healed (chemo extravasation), bronchitis, past stomach ulcer, upper and lower GI bleeds, diverticular disease, constipation. History of Any Multi-Drug Resistant Organisms: MRSA Date of last positivie culture/infection: 06/03/19 MDRO Source:: chest wall Past Surgical History: No Surgical Hx Reported Additional Past Surgical History / Comment(s): R supraclavicular lymph node bx, bone marrow aspiration/bx, R iliac lymph node bx, R chest port/removed then had wound debridement/wound vac, L chest wall port, colonoscopy. Past Anesthesia/Blood Transfusion Reactions: No Reported Reaction Additional Past Anesthesia/Blood Transfusion Reaction / Comment(s): Pt has received blood in past without reaction. Past Psychological History: ADD/ADHD, Anxiety, Bipolar, Depression Additional Psychological History / Comment(s): Pt resides with his father. He states he feels he could benefit from some home care. Has difficulty managing meds at times/performing ADLS at times. No longer drives, he gets rides thru his insurance company. States depression has increased some but no thoughts or plans of suicide. Smoking Status: Never smoker Past Alcohol Use History: None Reported Additional Past Alcohol Use History / Comment(s): STARTED SMOKING AT AGE 14 HAS QUIT Past Drug Use History: None Reported Additional Drug Use History / Comment(s): Pt uses marijuana lately as a vapor for nausea - Past Family History Father Family Medical History: Coronary Artery Disease (CAD) Additional Family Medical History / Comment(s): Father has a cardiac stent. Mother Family Medical History: No Reported History Additional Family Medical History / Comment(s): Mother from dementia. Medications and Allergies Home Medications Medication Instructions Recorded Confirmed Type Ondansetron [Zofran] 4 mg PO Q4H PRN 05/15/20 10/16/20 History Sertraline [Zoloft] 200 mg PO DAILY 05/15/20 10/16/20 History HYDROcodone/APAP 10-325MG [[place] 1 tab PO Q4H PRN 07/17/20 10/16/20 History 10-325] Morphine Sulfate ER [Ms Contin] 15 mg PO BID 07/17/20 10/16/20 History QUEtiapine XR [SEROquel XR] 150 mg PO DAILY 07/17/20 10/16/20 History busPIRone HCL [Buspar] 30 mg PO BID 07/25/20 10/16/20 History Atomoxetine HCl [Strattera] 80 mg PO DAILY 08/17/20 10/16/20 History Pantoprazole Sodium [Protonix] 40 mg PO DAILY 08/17/20 10/16/20 History QUEtiapine FUMARATE 100 mg PO HS 08/17/20 10/16/20 History Acyclovir 400 mg PO BID #60 tablet 09/25/20 10/16/20 Rx Allergies Allergy/AdvReac Type Severity Reaction Status Date / Time adhesive tape Allergy RED SKIN Verified 10/16/20 09:15 AND BLISTERS latex Allergy Rash/Hives Verified 10/16/20 09:15 ragweed pollen Allergy Wheezing Verified 10/16/20 09:15 Physical Exam Vitals: Vital Signs Temp Pulse Resp BP Pulse Ox 10/16/20 12:12 97.9 F 74 16 105/65 96 10/16/20 08:51 98.1 F 90 16 121/68 97 Intake and Output 10/15/20 10/16/20 10/16/20 22:59 06:59 14:59 Other: Voiding Method Toilet Weight 131.1 kg - Constitutional General appearance: cooperative, no acute distress, obese - EENT Eyes: anicteric sclerae, EOMI ENT: hearing grossly normal, normal oropharynx - Neck Neck: no lymphadenopathy - Respiratory Respiratory: bilateral: CTA - Cardiovascular Rhythm: regular Heart sounds: normal: S1, S2 Abnormal Heart Sounds: no systolic murmur, no diastolic murmur, no rub, no S3 Gallop, no S4 Gallop, no click, no other leg Peripheral Edema: bilateral: None - Gastrointestinal General gastrointestinal: no absent bowel sounds, no decreased bowel sounds, no distended, no hepatomegaly, no hyperactive bowel sounds, normal bowel sounds, no organomegaly, no rigid, no scaphoid, soft, no splenomegaly, no tenderness, no umbilical hernia, no ventral hernia - Integumentary Integumentary: normal - Neurologic Neurologic: CNII-XII intact - Musculoskeletal Musculoskeletal: strength equal bilaterally - Psychiatric Psychiatric: A&O x's 3, appropriate affect, intact judgment & insight Results CBC & Chem 7: 10/16/20 10:02 10/16/20 10:02 Labs: Abnormal Lab Results - Last 24 Hours (Table) 10/16/20 10/16/20 Range/Units 10:02 10:02 RBC 3.11 L (4.30-5.90) m/uL Hgb 10.9 L (13.0-17.5) gm/dL Hct 31.9 L (39.0-53.0) % MCV 102.5 H (80.0-100.0) fL MCH 35.2 H (25.0-35.0) pg RDW 17.1 H (11.5-15.5) % Lymphocytes # 0.3 L (1.0-4.8) k/uL Chloride 109 H (98-107) mmol/L Total Protein 6.1 L (6.3-8.2) g/dL Thrombosis Risk Factor Assmnt - DVT/VTE Prophylaxis DVT/VTE Prophylaxis: Pharmacologic Prophylaxis ordered - Choose All That Apply Any of the Below Risk Factors Present?: Yes Each Factor Represents 1 point: Age 41-60 years, Obesity (BMI >25) Other Risk Factors: Yes Each Risk Factor Represents 2 Points: Malignancy Other congenital or acquired thrombophilia - If yes, enter type in comment: No Thrombosis Risk Factor Assessment Total Risk Factor Score: 4 Thrombosis Risk Factor Assessment Level: Moderate Risk Assessment and Plan (1) Non-Hodgkin's lymphoma in adult Narrative/Plan: Admit for cycle #4 CIVI ICE salvage treatment for refractory NHL Orders reviewed home meds reconciled Supportive meds ordered Encourage ambulation [place] fluids Diet as tolerate Dr. Leroy for medical management Labs and f/u daily Current Visit: Yes Status: Chronic Priority: Medium Code(s): C85.90 - NON- HODGKIN LYMPHOMA, UNSPECIFIED, UNSPECIFIED SITE SNOMED Code(s): 992765188 (2) Macrocytic anemia Narrative/Plan: mild, 2/2 disease and treatment, no acute intervention Current Visit: Yes Status: Chronic Priority: Medium Code(s): D53.9 - NUTRITIONAL ANEMIA, UNSPECIFIED SNOMED Code(s): 54527685 Plan: Attests: I have performed H&P, developed impression and plan of care. Discussed with dictator. Agree with documentation, documented as a scribe.
[2020-10-16] MEDS: QUEtiapine 25 MG TAB PO SCH (17:23)
[2020-10-16] MEDS: SALT AND SODA MOUTHWASH 1,000 ML PO SCH ×3 (17:24→23:43)
--- NOTE | 2020-10-16 20:11 | CONS ---
CONSULTATION SUBJECTIVE: This is a 55-year-old white male, fourth cycle of ICE, right lower back discomfort radiating down to his legs at times. Pain medications do help. He denies fever or irritation, nausea, coughing, chest pain, palpitations, diarrhea, constipation, swelling or bleeding. He has nausea with medication, shortness of breath, difficulties with his diet with severe obesity and large amount of sugar intake at home, including pop and juices. Last scan showed adenopathy along the right iliac chain, increased thickening. He had a partial response to the last chemotherapy. Right posterior neck no mention it is nonspecific. Renal function last venipuncture was normal. Mediastinal nodes showed improvement compared to before. He had a questionable uptake around his tongue. He had radiation for the large right pelvic mass at the main site of his progression. He completed the same at [facility] with dramatic improvement. He is on salvage chemotherapy with ICE, cycle 1 of ICE on 07/17/2020 Neulasta on 07/21/2020. Fourteen-point review of systems otherwise negative. PAST MEDICAL HISTORY: cell lymphoma, COPD, GERD, GI bleed, non-Hodgkin's lymphoma, PAST PSYCH HISTORY: Bipolar, depression, ADHD, anxiety. He lives with his father. He has home care. FAMILY HISTORY: Father with coronary artery disease. HOME MEDICATIONS: Home medications include Zoloft 200 daily, [place] 10/325 q.4 hours, morphine sulfate, MS Contin 15 mg p.o. b.i.d., Seroquel XR 150 daily, BuSpar 30 mg b.i.d., Strattera 80 mg daily, Protonix 40 mg daily, Quetiapine 100 mg at bedtime, acyclovir 400 b.i.d. ALLERGIES: LATEX, RAGWEED. PHYSICAL EXAMINATION: VITAL SIGNS: Temperature 97 to 98, pulse 74-90, respiratory rate 16-18, blood pressure 105 to 121 over 60s, oxygenation 95% to 97% on room air. CARDIOVASCULAR: S1, S2. LUNGS: Clear. HEENT: No significant adenopathy. GI: Increased bowel sounds. Tenderness to palpation over the right lower quadrant. No ventral hernia, umbilical hernia. No hepatosplenomegaly. INTEGUMENT: He has redness to his upper right chest. We had a long wound which is slowly healing over time, had a lot of scab formation over this area with scar tissue and redness around the area. NEUROLOGIC: Cranial nerves are intact. MUSCULOSKELETAL: Strength decent. PSYCH: Anxious, nervous. Fair mood and affect. LABS: White count 4.3, hemoglobin is 10.4, BUN is 141, potassium 4.3. ASSESSMENT: 1. Non-Hodgkin's lymphoma. 2. History of bipolar, severe anxiety, attention deficit hyperactivity disorder. Diet as tolerated. Continue home medications for psych medications for sure. Supportive care. Check labs daily. Keep fluids with chemo. Nausea medicine. Please see further orders. MMODL / IJN: [id number] /
[2020-10-16] MEDS: ACYCLOVIR 200 MG CAP PO SCH (20:41)
[2020-10-16] MEDS: busPIRone HCl 10 MG TAB PO SCH (20:42)
[2020-10-16] MEDS: QUEtiapine 100 MG TAB PO SCH (20:42)
[2020-10-17 06:52] LABS: Anisocytosis Slight; Basophils % (A) 0 %; Eosinophils % (A) 0 %; HGB 10.5 gm/dL (13.0-17.5); Lymphocytes # (A) 0.2 k/uL (1.0-4.8); Lymphocytes % (A) 3 %; MCH 34.7 pg (25.0-35.0); MCHC 33.8 g/dL (31.0-37.0); MCV 102.7 fL (80.0-100.0); Macrocytosis Moderate; Mean Platelet Volume 6.9; Monocytes # (A) 0.4 k/uL (0-1.0); Monocytes % (A) 8 %; Neutrophils # (A) 4.8 k/uL (1.3-7.7); Neutrophils % (A) 88 %; Platelet Count 163 k/uL (150-450); RBC 3.02 m/uL (4.30-5.90); WBC 5.5 k/uL (3.8-10.6)
[2020-10-17 06:54] LABS: Anisocytosis Slight; Basophils % (A) 0 %; Eosinophils % (A) 0 %; HCT 31.4 % (39.0-53.0); HGB 10.6 gm/dL (13.0-17.5); Lymphocytes # (A) 0.2 k/uL (1.0-4.8); Lymphocytes % (A) 3 %; MCH 34.7 pg (25.0-35.0); MCHC 33.8 g/dL (31.0-37.0); MCV 102.7 fL (80.0-100.0); Macrocytosis Moderate; Mean Platelet Volume 6.9; Monocytes # (A) 0.4 k/uL (0-1.0); Monocytes % (A) 7 %; Neutrophils # (A) 4.8 k/uL (1.3-7.7); Neutrophils % (A) 88 %; Platelet Count 173 k/uL (150-450); RBC 3.06 m/uL (4.30-5.90); RDW 16.9 % (11.5-15.5); WBC 5.5 k/uL (3.8-10.6)
[2020-10-17] MEDS: SALT AND SODA MOUTHWASH 1,000 ML PO SCH ×4 (07:03→19:15)
[2020-10-17] MEDS: SODIUM CHLORIDE 0.9% 1,000 ML IV SCH ×3 (07:03→16:27)
[2020-10-17] MEDS: Atomoxetine Hcl [Strattera] PO SCH (08:24)
[2020-10-17] MEDS: SERTRALINE 100 MG TAB PO SCH (08:24)
[2020-10-17] MEDS: ACYCLOVIR 200 MG CAP PO SCH ×2 (08:24→19:12)
[2020-10-17] MEDS: QUEtiapine 25 MG TAB PO SCH ×2 (08:24→16:27)
[2020-10-17] MEDS: busPIRone HCl 10 MG TAB PO SCH ×2 (08:24→19:13)
[2020-10-17] MEDS: PANTOPRAZOLE 40 MG TABLET PO SCH (08:24)
[2020-10-17 10:11] LABS: African American GFR (CKD) 77.9 (60.0-200.0); Albumin 4.1 g/dL (3.80-4.90); Albumin/Globulin Ratio 2.73 (1.60-3.17); BUN/Creat Ratio 10.83 Ratio (12.00-20.00); Globulin 1.5 g/dL (1.6-3.3); Non-African American GFR(CKD) 67.2 (60.0-200.0); Phosphorus 3.3 mg/dL (2.4-5.1); Potassium 4.4 mmol/L (3.5-5.5); Total Bilirubin 0.4 mg/dL (0.2-1.2); Total Protein 5.6 g/dL (6.2-8.2); Uric Acid 4.3 mg/dL (3.7-8.7)
[2020-10-17] MEDS: DEXAMETHASONE SOD PHOSPHATE 10 MG/ML 1 ML VIAL IV SCH (10:38)
[2020-10-17] MEDS: FAMOTIDINE 20 MG/2 ML VIAL IVP SCH (10:38)
[2020-10-17] MEDS: ONDANSETRON 16 MG in SODIUM CHLORIDE 0.9% 50 ML IVPB SCH (10:38)
--- NOTE | 2020-10-17 10:49 | P.PN ---
Subjective Progress Note Date: 10/17/20 Principal diagnosis: Continuous IV infusion chemotherapy, #4 cycles ICE, non-Hodgkin's lymphoma In follow-up patient denies fevers, oral irritation, shortness of breath, unusual cough or expectoration, nausea, vomiting, abdominal pain or cramping, acute changes in bowel or bladder habits, swelling in the legs. He does have the right low back pain, persistent, not progressive, does improve when he takes his pain medications. He is tolerating oral intake. He is ambulating in the room. Objective - Vital Signs Vital signs: Vital Signs Temp 97.7 F 10/17/20 08:00 Pulse 89 10/17/20 08:00 Resp 18 10/17/20 08:00 BP 130/78 10/17/20 08:00 Pulse Ox 97 10/17/20 08:00 Intake & Output 10/16/20 10/17/20 10/17/20 18:59 06:59 18:59 Intake Total 1000 Balance 1000 Weight 131.1 kg Intake: Intake, IV Titration 1000 Amount Sodium Chloride 0.9% 1, 1000 000 ml @ 125 mls/hr IV . Q8H [facility] Rx#:[id number] Other: Voiding Method Toilet Toilet - Constitutional General appearance: Present: cooperative, no acute distress, obese - EENT Eyes: Present: anicteric sclerae, EOMI ENT: Present: hearing grossly normal, normal oropharynx - Respiratory Respiratory: bilateral: CTA - Cardiovascular Rhythm: regular Heart sounds: normal: S1, S2 Abnormal Heart Sounds: Absent: systolic murmur, diastolic murmur, rub, S3 Gallop, S4 Gallop, click, other - Peripheral edema leg Peripheral Edema: bilateral: None - Gastrointestinal General gastrointestinal: Present: normal bowel sounds, soft. Absent: absent bowel sounds, decreased bowel sounds, distended, hepatomegaly, hyperactive bowel sounds, organomegaly, rigid, scaphoid, splenomegaly, tenderness, umbilical hernia, ventral hernia Localized gastrointestinal: tender: RUQ - Integumentary Integumentary: Present: pale - Neurologic Neurologic: Present: CNII-XII intact - Musculoskeletal Musculoskeletal: Present: strength equal bilaterally - Psychiatric Psychiatric: Present: A&O x's 3, appropriate affect, intact judgment & insight - Labs CBC & Chem 7: 10/17/20 06:12 10/17/20 06:12 Labs: Abnormal Lab Results - Last 24 Hours (Table) 10/16/20 10/16/20 10/17/20 Range/Units 10:02 10:02 06:12 RBC 3.11 L 3.06 L (4.30-5.90) m/uL Hgb 10.9 L 10.6 L (13.0-17.5) gm/dL Hct 31.9 L 31.4 L (39.0-53.0) % MCV 102.5 H 102.7 H (80.0-100.0) fL MCH 35.2 H (25.0-35.0) pg RDW 17.1 H 16.9 H (11.5-15.5) % Lymphocytes # 0.3 L 0.2 L (1.0-4.8) k/uL Chloride 109 H (98-107) mmol/L BUN/Creatinine Ratio (12.00-20.00) Ratio Total Protein 6.1 L (6.3-8.2) g/dL Globulin (1.6-3.3) g/dL 10/17/20 10/17/20 Range/Units 06:12 06:12 RBC 3.02 L (4.30-5.90) m/uL Hgb 10.5 L (13.0-17.5) gm/dL Hct 31.0 L (39.0-53.0) % MCV 102.7 H (80.0-100.0) fL MCH (25.0-35.0) pg RDW 17.0 H (11.5-15.5) % Lymphocytes # 0.2 L (1.0-4.8) k/uL Chloride 110 H (98-107) mmol/L BUN/Creatinine Ratio 10.83 L (12.00-20.00) Ratio Total Protein 5.6 L (6.3-8.2) g/dL Globulin 1.5 L (1.6-3.3) g/dL Assessment and Plan (1) Non-Hodgkin's lymphoma in adult Narrative/Plan: Admit for cycle #4 CIVI ICE salvage treatment for refractory NHL as ordered Supportive meds ordered Encouraged ambulation [place] fluids Diet as tolerate Dr. Leroy for medical management Labs and f/u daily Current Visit: Yes Status: Chronic Priority: Medium Code(s): C85.90 - NON- HODGKIN LYMPHOMA, UNSPECIFIED, UNSPECIFIED SITE SNOMED Code(s): 177877858 (2) Macrocytic anemia Narrative/Plan: mild, 2/2 disease and treatment, no acute intervention Current Visit: Yes Status: Chronic Priority: Medium Code(s): D53.9 - NUTRITIONAL ANEMIA, UNSPECIFIED SNOMED Code(s): 29480580 Plan: Doctor attests: I performed a history and physical examination of this patient, developed impression and plan of care. Discussed with dictator. I agree with dictators note, documented as a scribe.
[2020-10-17] MEDS: ETOPOSIDE IV SCH (11:07)
[2020-10-17] MEDS: SODIUM CHLORIDE 0.9% IV SCH (11:07)
[2020-10-17] MEDS: HYDROcodone/APAP 10-325MG 1 EACH TAB PO PRN ×2 (11:24→19:13)
[2020-10-17] MEDS ORDERED: MESNA IV ONE (12:00)
[2020-10-17] MEDS ORDERED: CARBOplatin 500 MG in SODIUM CHLORIDE 0.9% 250 ML IV ONE (12:00)
[2020-10-17] MEDS ORDERED: SODIUM CHLORIDE 0.9% IV ONE ×2 (12:00)
[2020-10-17] MEDS ORDERED: IFOSFAMIDE IV ONE (12:00)
[2020-10-17] MEDS: LIDOCAINE 5% PATCH TOPICAL SCH (18:02)
--- NOTE | 2020-10-17 18:27 | PN ---
PROGRESS NOTE This is a 55-year-old white male who remains on dexamethasone, etoposide, BuSpar, Strattera, Zovirax. He is on date 2 of chemo. His hemoglobin went from 10.9 down to 10.5. White count is still at 5.5. Platelets are normal at 163. Sodium 141, potassium 4.4. Cardiovascular: S1-S2. Lungs are clear. GI is soft. HEMATOLOGY: Negative Homans. Tender to palpation over the right hip. Possibly order some steroids for the right hip pain or a lidocaine patch to the right hip at this point. The patient continues to improve and stabilize day 2 of chemotherapy. Please see further orders. Bipolar appears to be stable also. Right hip pain, possibly trochanteric bursitis, as he has tenderness to palpation of the right hip trochanter area. Put a lidocaine patch on the hip. MMODL / IJN: [id number] /
[2020-10-17] MEDS: QUEtiapine 100 MG TAB PO SCH (19:13)
[2020-10-18] MEDS: SALT AND SODA MOUTHWASH 1,000 ML PO SCH ×4 (02:10→16:49)
[2020-10-18] MEDS: SODIUM CHLORIDE 0.9% 1,000 ML IV SCH ×3 (02:36→16:43)
[2020-10-18] MEDS: HYDROcodone/APAP 10-325MG 1 EACH TAB PO PRN ×2 (04:46→10:15)
[2020-10-18 06:03] LABS: Anisocytosis Slight; Basophils % (A) 0 %; Eosinophils % (A) 0 %; HCT 28.1 % (39.0-53.0); HGB 9.5 gm/dL (13.0-17.5); Lymphocytes # (A) 0.2 k/uL (1.0-4.8); Lymphocytes % (A) 4 %; MCH 34.8 pg (25.0-35.0); MCV 102.5 fL (80.0-100.0); Macrocytosis Moderate; Mean Platelet Volume 6.8; Monocytes # (A) 0.4 k/uL (0-1.0); Monocytes % (A) 9 %; Neutrophils # (A) 3.5 k/uL (1.3-7.7); Neutrophils % (A) 85 %; Platelet Count 134 k/uL (150-450); RBC 2.74 m/uL (4.30-5.90); RDW 16.8 % (11.5-15.5); WBC 4.2 k/uL (3.8-10.6)
[2020-10-18] MEDS: SERTRALINE 100 MG TAB PO SCH (08:35)
[2020-10-18] MEDS: PANTOPRAZOLE 40 MG TABLET PO SCH (08:35)
[2020-10-18] MEDS: busPIRone HCl 10 MG TAB PO SCH (08:35)
[2020-10-18] MEDS: QUEtiapine 25 MG TAB PO SCH ×2 (08:35→16:49)
[2020-10-18] MEDS: ACYCLOVIR 200 MG CAP PO SCH (08:35)
[2020-10-18] MEDS: Atomoxetine Hcl [Strattera] PO SCH (08:36)
[2020-10-18] MEDS: LIDOCAINE 5% PATCH TOPICAL SCH (08:39)
[2020-10-18 10:12] LABS: African American GFR (CKD) 77.9 (60.0-200.0); Albumin 3.8 g/dL (3.80-4.90); Albumin/Globulin Ratio 2.92 (1.60-3.17); Anion Gap 6.6 mmol/L (4.00-12.00); Calcium 8.6 mg/dL (8.7-10.3); Carbon Dioxide 22.4 mmol/L (21.6-31.8); Globulin 1.3 g/dL (1.6-3.3); Non-African American GFR(CKD) 67.2 (60.0-200.0); Phosphorus 3.3 mg/dL (2.4-5.1); Potassium 4.1 mmol/L (3.5-5.5); Total Bilirubin 0.4 mg/dL (0.2-1.2); Total Protein 5.1 g/dL (6.2-8.2); Uric Acid 3.5 mg/dL (3.7-8.7)
--- NOTE | 2020-10-18 10:39 | P.PN ---
Subjective Progress Note Date: 10/18/20 Principal diagnosis: Continuous IV infusion chemotherapy, #4 cycles ICE, non-Hodgkin's lymphoma In follow-up patient denies any complaints other than right low back pain radiating down the leg. He feels that it is a little bit worse today. He denies numbness or tingling, the leg has not given out on him. He is tolerating oral intake. He is ambulating in the room. Objective - Vital Signs Vital signs: Vital Signs Temp 97.9 F 10/18/20 07:48 Pulse 87 10/18/20 07:48 Resp 19 10/18/20 07:48 BP 140/76 10/18/20 07:48 Pulse Ox 92 L 10/18/20 07:48 Intake & Output 10/17/20 10/18/20 10/18/20 18:59 06:59 18:59 Intake Total 2390 Balance 2390 Intake: Intake, IV Titration 2390 Amount CARBOplatin 500 mg In 250 Sodium Chloride 0.9% 250 ml @ 600 mls/hr IV ONCE ONE Rx#:[id number] Etoposide 250 mg In 650 Sodium Chloride 0.9% 650 ml @ 662.5 mls/hr IV Q24H [facility] Rx#:[id number] Sodium Chloride 0.9% 1, 1490 000 ml @ 125 mls/hr IV . Q8H [facility] Rx#:[id number] Other: Voiding Method Toilet # Voids 1 - Constitutional General appearance: Present: cooperative, no acute distress, obese - EENT Eyes: Present: anicteric sclerae, EOMI ENT: Present: hearing grossly normal - Respiratory Respiratory: bilateral: CTA - Cardiovascular Rhythm: regular Heart sounds: normal: S1, S2 Abnormal Heart Sounds: Absent: systolic murmur, diastolic murmur, rub, S3 Gallop, S4 Gallop, click, other - Peripheral edema leg Peripheral Edema: bilateral: None - Gastrointestinal General gastrointestinal: Present: normal bowel sounds, soft - Neurologic Neurologic: Present: CNII-XII intact - Musculoskeletal Musculoskeletal Comment(s): Bilateral lower extremity strength is equal, strong Musculoskeletal: Present: strength equal bilaterally - Psychiatric Psychiatric: Present: A&O x's 3, appropriate affect, intact judgment & insight - Labs CBC & Chem 7: 10/18/20 05:37 10/18/20 05:37 Labs: Abnormal Lab Results - Last 24 Hours (Table) 10/18/20 10/18/20 Range/Units 05:37 05:37 RBC 2.74 L (4.30-5.90) m/uL Hgb 9.5 L (13.0-17.5) gm/dL Hct 28.1 L (39.0-53.0) % MCV 102.5 H (80.0-100.0) fL RDW 16.8 H (11.5-15.5) % Plt Count 134 L (150-450) k/uL Lymphocytes # 0.2 L (1.0-4.8) k/uL Chloride 113 H (96-109) mmol/L Uric Acid 3.5 L (3.7-8.7) mg/dL Calcium 8.6 L (8.7-10.3) mg/dL Total Protein 5.1 L (6.2-8.2) g/dL Globulin 1.3 L (1.6-3.3) g/dL Assessment and Plan (1) Non-Hodgkin's lymphoma in adult Narrative/Plan: Cont with cycle #4 CIVI ICE salvage treatment for refractory NHL as ordered Supportive meds ordered Encouraged ambulation [place] fluids Diet as tolerate Dr. Leroy for medical management Labs and f/u daily Current Visit: Yes Status: Chronic Priority: Medium Code(s): C85.90 - NON- HODGKIN LYMPHOMA, UNSPECIFIED, UNSPECIFIED SITE SNOMED Code(s): 363942037 (2) Macrocytic anemia Narrative/Plan: mild, 2/2 disease and treatment, no acute intervention. Hgb 9.5 today Current Visit: Yes Status: Chronic Priority: Medium Code(s): D53.9 - NUTRITIONAL ANEMIA, UNSPECIFIED SNOMED Code(s): 44886230 Plan: Right low back pain, radiating to the leg: CT of the LS spine ordered Doctor attests: I performed a history and physical examination of this patient, developed impression and plan of care. Discussed with dictator. I agree with dictators note, documented as a scribe.
[2020-10-18] MEDS: ONDANSETRON 16 MG in SODIUM CHLORIDE 0.9% 50 ML IVPB SCH (11:38)
[2020-10-18] MEDS: FAMOTIDINE 20 MG/2 ML VIAL IVP SCH (11:38)
[2020-10-18] MEDS: DEXAMETHASONE SOD PHOSPHATE 10 MG/ML 1 ML VIAL IV SCH (11:38)
--- NOTE | 2020-10-18 11:58 | CT ---
EXAMINATION TYPE: CT lumbar spine wo con DATE OF EXAM: 10/18/2020 11:20 AM COMPARISON: 12/16/2019 HISTORY: Radiating pain down right leg CT DLP: 2843.60 mGycm Automated exposure control for dose reduction was used. Unenhanced CT of the lumbar spine was performed. Bone and soft tissue window settings are submitted as well as coronal and sagittal reconstructions. L1-L2: Normal disc space height. No disc herniation protrusion or central stenosis. No facet joint arthropathy. No evidence for foraminal encroachment. L2-L3: Normal disc space height. No disc herniation protrusion or central stenosis. No facet joint arthropathy. No evidence for foraminal encroachment. L3-L4: Normal disc space height. No disc herniation protrusion or central stenosis. No facet joint arthropathy. No evidence for foraminal encroachment. L4-L5: There is sclerosis and lucency involving the inferior endplate of L4 and superior endplate of L5 with loss of disc space. There is broad-based central disc protrusion with hypertrophy ligamentum flavum and facet joints likely resulting in canal stenosis and bilateral foraminal encroachment. L5-S1: Mild circumferential disc bulging but no evidence of disc herniation or canal stenosis. Mild f acet arthropathy. Neural foramina patent. There is a large soft tissue mass along the right iliac bone measuring 7.7 cm. Right-sided hydronephr osis and hydroureter is stable from prior CT scanner 12/16/2019 areas correlate lithiasis noted. IMPRESSION: 1. Severe degenerative disc disease with sclerosis at L4-L5. Disc broad-based protrusion results in c anal stenosis and bilateral foraminal encroachment. 2. Irregularity of the endplates at L4 and L5 with sclerosis could be discogenic. Findings stable harish ing back to the CT scan of 10/15/2019. If there is clinical concern for discitis noncontrast MRI recom mended. 3. Large right pelvic mass compatible with lymphadenopathy similar appearance to the CT scan of 2019. 4. Stable right-sided hydronephrosis. 5. Cholelithiasis.
[2020-10-18] MEDS: SODIUM CHLORIDE 0.9% IV SCH (12:35)
[2020-10-18] MEDS: ETOPOSIDE IV SCH (12:35)
--- NOTE | 2020-10-18 15:09 | P.DS ---
Providers Date of admission: 10/16/20 08:14 Expected date of discharge: 10/18/20 Attending physician: Dennys Zafar Consults: 10/16/20 14:22 Consult Physician Routine Consulting Provider: Randy Leroy Consult Reason/Comments: medical management Do you want consulting provider notified?: Yes Primary care physician: Randy Leroy - Discharge Diagnosis(es) (1) Non-Hodgkin's lymphoma in adult Current Visit: Yes Status: Chronic Priority: Medium (2) Macrocytic anemia Current Visit: Yes Status: Chronic Priority: Medium Hospital Course: Pt admitted for [facility] ICE regimen for refractory NHL. He tolerated his regimen well. He's had complaints of right low back and leg pain. CT of the L/S spine showing stable lymphadenopathy, degenerative disc disease. Patient states that he does have a more comfortable bed at home and he can do heat and other positioning at home easier than in the hospital. Patient states he has all the prescriptions he needs. 10 point review of systems was done this a.m., no other complaints. Patient is tolerating diet, he is independently ambulatory. Pertinent Studies: CT L/S-spine Patient Condition at Discharge: Fair Plan - Discharge Summary Discharge Rx Participant: No New Discharge Prescriptions: No Action Sertraline [Zoloft] 200 mg PO DAILY Ondansetron [Zofran] 4 mg PO Q4H PRN PRN Reason: Nausea QUEtiapine XR [SEROquel XR] 150 mg PO DAILY HYDROcodone/APAP 10-325MG [[place] 10-325] 1 tab PO Q4H PRN PRN Reason: Pain Morphine Sulfate ER [Ms Contin] 15 mg PO BID busPIRone HCL [Buspar] 30 mg PO BID QUEtiapine FUMARATE 100 mg PO HS Pantoprazole Sodium [Protonix] 40 mg PO DAILY Atomoxetine HCl [Strattera] 80 mg PO DAILY Acyclovir 400 mg PO BID #60 tablet Discharge Medication List Ondansetron [Zofran] 4 mg PO Q4H PRN 05/15/20 [History] Sertraline [Zoloft] 200 mg PO DAILY 05/15/20 [History] HYDROcodone/APAP 10-325MG [[place] 10-325] 1 tab PO Q4H PRN 07/17/20 [History] Morphine Sulfate ER [Ms Contin] 15 mg PO BID 07/17/20 [History] QUEtiapine XR [SEROquel XR] 150 mg PO DAILY 07/17/20 [History] busPIRone HCL [Buspar] 30 mg PO BID 07/25/20 [History] Atomoxetine HCl [Strattera] 80 mg PO DAILY 08/17/20 [History] Pantoprazole Sodium [Protonix] 40 mg PO DAILY 08/17/20 [History] QUEtiapine FUMARATE 100 mg PO HS 08/17/20 [History] Acyclovir 400 mg PO BID #60 tablet 09/25/20 [Rx] Follow up Appointment(s)/Referral(s): [facility], [NON-STAFF] - 1-2 Days Dennys Zafar MD [STAFF PHYSICIAN] - 10/19/20 3:00 pm (This is for his white blood cell booster shot. RNs will make additional appointments when he is seen) Discharge Disposition: HOME WITH HOME HEALTH SERVICES Pending Studies Pending Results: Doctor attests: I performed a history and physical examination of this patient, developed impression and plan of care. Discussed with dictator. I agree with dictators note, documented as a scribe.
[2020-10-18 15:58] VITALS: BP 149/90; PULSE 89; TEMP 98
[2020-10-18 16:14] VITALS: RESP 18
== END 2020-10-18 17:09 | disposition home health service (06) | DRG 847 ==
LOC: 5NMEDONC 08:14
PROVIDERS: ADMIT Internal Medicine Hematology & Oncology; ATTEND Internal Medicine Hematology & Oncology
DX: Z51.11 Encounter for antineoplastic chemotherapy (principal); Z68.41 Body mass index [BMI] 40.0-44.9, adult; C83.38 Diffuse large B-cell lymphoma, lymph nodes of multiple sites; N13.30 Unspecified hydronephrosis; E66.01 Morbid (severe) obesity due to excess calories; K21.9 Gastro-esophageal reflux disease without esophagitis; D53.9 Nutritional anemia, unspecified; F31.9 Bipolar disorder, unspecified; J44.9 Chronic obstructive pulmonary disease, unspecified; M71.551 Other bursitis, not elsewhere classified, right hip; K57.90 Diverticulosis of intestine, part unspecified, without perforation or abscess without bleeding; N13.9 Obstructive and reflux uropathy, unspecified; K59.00 Constipation, unspecified; F41.9 Anxiety disorder, unspecified; M54.5 Low back pain; R11.0 Nausea; F90.9 Attention-deficit hyperactivity disorder, unspecified type; Z79.891 Long term (current) use of opiate analgesic; Z79.899 Other long term (current) drug therapy; Z87.891 Personal history of nicotine dependence; Z87.19 Personal history of other diseases of the digestive system; Z87.11 Personal history of peptic ulcer disease; Z98.890 Other specified postprocedural states; Z86.14 Personal history of Methicillin resistant Staphylococcus aureus infection; Z91.040 Latex allergy status; Z91.048 Other nonmedicinal substance allergy status; Z82.49 Family history of ischemic heart disease and other diseases of the circulatory system; Z81.8 Family history of other mental and behavioral disorders
CPT/HCPCS: 72131; 80053; 84100; 84550; 85025

== ENCOUNTER → 2020-11-10 | Outpatient (CLI) | payer OTHER ==
--- NOTE | 2020-11-10 16:20 | CT ---
EXAMINATION TYPE: CT ChestAbdPelvis w con DATE OF EXAM: 11/10/2020 COMPARISON: PET/CT September 15, 2020 and older studies HISTORY: Lymphoma F/U CT DLP: 2901.3 mGycm. Automated Exposure Control for Dose Reduction was Utilized. CONTRAST: CT scan of the thorax, abdomen and pelvis is performed with IV Contrast, patient injected with 80 mL of Isovue 300. FINDINGS: LUNGS: The lungs remain grossly clear, there is no concerning parenchymal mass or nodule identified. There is no pleural effusion or pneumothorax seen. The tracheobronchial tree is patent. MEDIASTINUM: There are no new greater than 1 cm hilar or mediastinal lymph nodes. No pericardial ef fusion is seen. Other: Bilateral flame-shaped subareolar gynecomastia is redemonstrated. LIVER/GB: Redemonstration of two small calcified round gallstones which are now nondependent in locat ion. Fatty infiltration of liver redemonstrated. PANCREAS: Mild generalized fat replaced atrophy. SPLEEN: No significant abnormality is seen. ADRENALS: No significant abnormality is seen. KIDNEYS: Persistent severe right-sided hydronephrosis with delayed or absent excretion. BOWEL: Oral contrast does not reach level of terminal ileum making evaluation of distal bowel slightl y suboptimal. No suspicious small or large bowel dilatation. GENITAL ORGANS: No gross abnormality seen. LYMPH NODES: Persistent large right iliac mass or adenopathy corresponding to hypermetabolic lesion i ndistinct from the right iliopsoas muscle so difficult to accurately measure, not significantly montilla ed from most recent PET/CT, measurement of 7.4 x 7.4 cm axial image 99 may be inaccurate. Some adjace nt prominent but subcentimeter lymph nodes inferior and anterior to this with mild to moderate fat st randing redemonstrated, Reference 10 x 9 mm lymph node anterior to iliac vessels axial image 111 and adjacent 1.5 x 1.4 cm ly mph node axial image 115 redemonstrated. No definitive new greater than 1 cm lymph nodes. Prominent b ut subcentimeter aortocaval lymph node axial image 76 stable. OSSEOUS STRUCTURES: Endplate sclerosis inferior L4 level redemonstrated with moderate disc space narr owing. OTHER: No significant additional abnormality is seen. IMPRESSION: Persistent right pelvic adenopathy causing severe right-sided hydronephrosis and delayed or absent right sided excretion. No obvious change from most recent PET/CT. No new mass or adenopath y noted.
== END | disposition home or self-care (01) ==
LOC: RADCTMAIN 13:52
PROVIDERS: ATTEND Internal Medicine Hematology & Oncology
DX: N13.30 Unspecified hydronephrosis (principal); C85.88 Other specified types of non-Hodgkin lymphoma, lymph nodes of multiple sites
CPT/HCPCS: 82565; 84520; 71260; 74177; 36415; Q9967